=== PATIENT | female | born 1930 | race African-American/Black ===

== ENCOUNTER 2016-11-28 08:40 | Emergency (ER) | payer MEDICARE, BC ==
[~2016-11-28 08:40] MED LIST: ACET325S8 PO; ATEN1TAB74 PO; ATOR10 PO; DYAZ37.57 PO; HYDR-3533 PO; LISI-363 PO; RANI150T PO
[2016-11-28 08:51] VITALS: BP 164/85; PULSE 73; RESP 20; TEMP 98.1; O2SAT 93
--- NOTE | 2016-11-28 09:07 | PD ---
HPI Chief Complaint: Fall Time Seen by Provider: 08:48 Travel History International Travel<30 days: No Contact w/Intl Traveler<30days: No Traveled to known affect area: No History of Present Illness HPI The patient was seen and examined in the presence of the nurse. This patient complains of low back pain she developed when she fell this morning. She tripped trying to manage the recycle bins this morning. She landed on her buttock's. She complains of some low central back pain. She has been ambulatory since the fall. She uses a walker while inside the house but outside only uses a cane. Did not strike her head. He has no head or neck pain. Denies any neurologic complaint duration 2 hours. No alleviating factors. Severity is moderate. It's worse with movement PFSH Past Medical History Arthritis: Yes Autoimmune Disease: No Cardiovascular Problems: No High Cholesterol: Yes GERD: Yes Genitourinary: No Hypertension: Yes Musculoskeletal: Yes (OSTEOPOROSIS) Neurologic: No Reproductive: No Respiratory: No Menopausal: Yes Past Surgical History Ear Surgery: No Endocrine Surgery: No Eye Surgery: No Oral Surgery: No Social History Alcohol Use: Yes Tobacco Use: No (quit 50yrs ago) Substance Use: No Allergies-Medications (Allergen,Severity, Reaction): Coded Allergies: aspirin (Unverified Allergy, Unknown, 11/28/16) . nifedipine (Unverified Allergy, Unknown, 11/28/16) . Uncoded Allergies: MUSSELS (Allergy, Unknown, 01/24/16) . Reported Meds & Prescriptions Reported Meds & Active Scripts Active Active Prescriptions or Reported Medications Unobtainable Review of Systems General / Constitutional: No: Fever Eyes: No: Visual changes HENT: No: Headaches Cardiovascular: No: Chest Pain or Discomfort Respiratory: No: Shortness of Breath Gastrointestinal: No: Abdominal Pain Genitourinary: No: Dysuria Musculoskeletal: Positive: Pain Skin: No Rash Neurologic: No: Weakness Psychiatric: No: Depression Endocrine: No: Polydipsia Hematologic/Lymphatic: No: Easy Bruising Physical Exam Narrative GENERAL: Well-nourished, well-developed patient in no apparent distress. SKIN: Focused skin assessment reveals no rash and nodules. Skin is Warm and dry. HEAD: Atraumatic. Normocephalic. EYES: Pupils equal and round. No scleral icterus. No injection or drainage. ENT: No nasal bleeding or discharge. Mucous membranes pink and moist. NECK: Trachea midline. No JVD. No midline tenderness CARDIOVASCULAR: Regular rate and rhythm. No murmur appreciated. RESPIRATORY: No accessory muscle use. Clear to auscultation. Breath sounds equal bilaterally. GASTROINTESTINAL: Abdomen soft, non-tender, nondistended. Hepatic and splenic margins not palpable. MUSCULOSKELETAL: No obvious deformities. No clubbing. No cyanosis. Trace symmetric ankle edema. There is no midline tenderness of the back. No bruising or swelling. NEUROLOGICAL: Awake and alert. No obvious cranial nerve deficits. Motor grossly within normal limits. Normal speech. PSYCHIATRIC: Appropriate mood and affect; insight and judgment normal. Data Data Last Documented VS Vital Signs Date Time Temp Pulse Resp B/P Pulse Ox O2 Delivery O2 Flow Rate FiO2 11/28/16 08:51 98.1 73 20 164/85 93 Orders Pelvis, Ap Only (Routine) (11/28/16 ) Spine, Lumbar - Ltd (Ap & Lat) (11/28/16 ) Acetamin-Hydrocod 325-5 Mg ([place] 5-325 (11/28/16 10:15) MDM Medical Decision Making Medical Screen Exam Complete: Yes Emergency Medical Condition: Yes Medical Record Reviewed: Yes Differential Diagnosis Pelvic fracture, compression fracture of vertebrae, spinal CORD injury Narrative Course I have reviewed the patient's electronic medical record. Patient was last here 2015 for back pain Patient is neurologically intact I reviewed her pelvis x-ray which shows no fracture I reviewed her lumbar spine x-rays shows arthritic change and scoliosis and a stable mild to moderate T12 compression fracture No evidence of acute fracture Stable for outpatient follow-up I gave her a dose of pain medicine here and a dozen Lortab to use as needed Warned her about sedation and constipation. sHe's had them before without difficulty Diagnosis Primary Impression: Back contusion Qualified Code: S20.229A - Contusion of back, unspecified laterality, initial encounter Additional Impressions: Fall Qualified Code: W19.XXXA - Fall, initial encounter Arthritis Additional Instructions: The patient was advised to follow up with their physician and return if they worsen. The patient was warned about potential sedation for the medications they will receive on prescription. Med/Other Pt SpecificInfo: Prescription(s) given Scripts Hydrocodone-Acetaminophen (Lortab)5-325 Mg Tab1 Tab PO Q6H PRN (PAIN) #12 TAB Ref 0 Prov:Johnie Gagnon MD 11/28/16 Disposition: 01 DISCHARGE HOME Condition: Stable Johnie Gagnon MD Nov 28, 2016 09:07
--- NOTE | 2016-11-28 09:44 | RADRPT ---
EXAM DATE/TIME: 11/28/2016 09:12 [facility] COMPARISON: PELVIS AP ONLY, November 17, 2010, 14:27. INDICATIONS : Low back pain after fall this morning. MEDICAL HISTORY : Hypercholesterolemia. Gastroesophageal reflux disease. Osteoporosis. Hypertension. SURGICAL HISTORY : Left total hip replacement. ENCOUNTER: Initial ACUITY: 1 day PAIN SCORE: 10/10 LOCATION: pelvis FINDINGS: AP views of the pelvis were obtained and again demonstrate fat the patient is status post left hip ar throplasty. The femoral and acetabular components remain intact and in normal alignment. There is dif fuse osteopenia with no acute fracture or malalignment. There is mild degenerative change in the righ t hip. The sacrum is intact. There are vascular calcifications. There are degenerative disc changes a nd mild scoliosis in the lower lumbar spine. CONCLUSION: 1. Osteopenia with no acute fracture or malalignment. 2. Status post left hip arthroplasty. 3. Egenerative disc change is mild scoliosis in the lower lumbar spine. Ramin Atwood MD on November 28, 2016 at 9:40 Board Certified Radiologist. This report was verified electronically.
--- NOTE | 2016-11-28 09:50 | RADRPT ---
EXAM DATE/TIME: 11/28/2016 09:15 [facility] COMPARISON: CT THORACIC SPINE W/O CONTRAST, January 21, 2016, 16:47. INDICATIONS : Low back pain post fall this morning. MEDICAL HISTORY : Osteoporosis. Hypercholesterolemia. Gastroesophageal reflux disease. Hypertension. SURGICAL HISTORY : Left total hip replacement. ENCOUNTER: Initial ACUITY: 1 day PAIN SCORE: 10/10 LOCATION: Bilateral lumbar spine FINDINGS: AP and lateral views of the lumbar spine were obtained and demonstrate diffuse osteopenia with stable mild to moderate compression fracture deformity of the T12 vertebral body. There is no acute fractur e or malalignment. There are mild to moderate degenerative disc changes with disc space narrowing and hypertrophic change. There are degenerative joint changes involving the facets. Vascular calcificati ons are noted and there is a mild scoliosis. CONCLUSION: 1. No acute fracture or malalignment. 2. Stable mild to moderate compression fracture deformity of the T12 vertebral body. 3. Diffuse degenerative disc and degenerative joint changes. 4. Osteopenia and mild scoliosis. Ramin Atwood MD on November 28, 2016 at 9:43 Board Certified Radiologist. This report was verified electronically.
[2016-11-28] MEDS ORDERED: HYDR-3533 PO (10:08)
[2016-11-28] MEDS ORDERED: ACETAMINOPHEN/HYDROcodone 325 MG/5 MG TAB PO ONE (10:15)
== END 2016-11-28 11:00 | disposition home or self-care (01) ==
LOC: PHED 08:40
DX: S20.229A Contusion of unspecified back wall of thorax, initial encounter (principal); W01.0XXA Fall on same level from slipping, tripping and stumbling without subsequent striking against object, initial encounter; Y93.89 Activity, other specified
CPT/HCPCS: 72100; 72170; 99284

== ENCOUNTER 2017-12-12 10:14 | Inpatient (IN) ==
[2017-12-12] MEDS ORDERED: Morphine Inj 4 MG/ML Vial IV.PUSH ONE (10:34)
[2017-12-12] MEDS ORDERED: Sod Chloride 0.9% Inj 1,000 ML IV.SIG ONE (10:34)
--- NOTE | 2017-12-12 10:34 | ED ---
HPI General Chief Complaint: Weakness Stated Complaint: Weakness/Lower abd pain/pelvic pain x 2 days Source: patient Mode of arrival: ambulatory Limitations: no limitations History of Present Illness HPI narrative: Patient complains of lower abdominal pain for the past 2 days MD complaint: abdominal pain Onset (ago): day(s) (2) Pain Consistency: constant Location: LLQ, RLQ and suprapubic Severity: moderate Severity scale (1-10): 5 Quality: cramping and fullness Radiation: none Migration to: no migration Relieving factors: nothing Exacerbating factors: nothing Associated symptoms: denies other symptoms Related Data Home Medications Medication Instructions Recorded Confirmed atenolol 50 mg PO BID 12/12/17 12/12/17 atorvastatin 10 mg PO DAILY 12/12/17 12/12/17 ranitidine HCl 150 mg PO BID 12/12/17 12/12/17 triamterene-hydrochlorothiazid 1 cap PO DAILY 12/12/17 12/12/17 Previous Rx's Medication Instructions Recorded amoxicillin-pot clavulanate 1 tab PO Q12H #14 tab 12/15/17 [Augmentin] losartan [Cozaar] 25 mg PO DAILY #30 tab 12/15/17 Allergies Allergy/AdvReac Type Severity Reaction Status Date / Time aspirin Allergy Severe Chest Pain Verified 12/12/17 10:22 nifedipine Allergy Severe Chest Pain Verified 12/12/17 10:22 codeine AdvReac Severe Palpitation Verified 12/12/17 10:36 s MUSSELS Allergy Severe Chest Pain Uncoded 12/12/17 10:22 Review of Systems ROS: all other systems reviewed are negative PMFSH History History Provided By: Patient Medical History Medical History GERD (gastroesophageal reflux disease) (Acute) High cholesterol (Acute) Hypertension (Acute) Surgical History Surgical History History of hip replacement (Acute) Social History Social History Substance History: No History of Abuse Second Hand Smoke Exposure: No Smoking Status: Former smoker Tobacco Type: Cigarettes How Often Do You Have a Drink Containing Alcohol: 4 or more times a week [facility] within the Last 8 Weeks: No Recent Out of Country Travel within the Last 8 Weeks: No Exam Narrative Exam Narrative: GENERAL: Elderly -Sud[place] female in no apparent distress. SKIN: Warm and dry. HEAD: Atraumatic. Normocephalic. EYES: Pupils equal and round. No scleral icterus. No injection or drainage. ENT: No nasal bleeding or discharge. Mucous membranes pink and moist. NECK: Trachea midline. No JVD. CARDIOVASCULAR: Regular rate and rhythm. no rubs or gallops RESPIRATORY: No accessory muscle use. Clear to auscultation. Breath sounds equal bilaterally. GASTROINTESTINAL: Abdomen soft, non-tender, nondistended. No rebound or guarding MUSCULOSKELETAL: Extremities without clubbing, cyanosis, or edema. No obvious deformities. NEUROLOGICAL: Awake and alert. No obvious cranial nerve deficits. Motor grossly within normal limits. Five out of 5 muscle strength in the arms and legs. Normal speech. PSYCHIATRIC: Appropriate mood and affect; insight and judgment normal. Course Initial Documented Vital Signs Temperature 98.7 F 12/12/17 10:16 Pulse Rate 107 H 12/12/17 10:16 Respiratory Rate 18 12/12/17 10:16 Blood Pressure 99/51 L 12/12/17 10:16 Pulse Oximetry 97 12/12/17 10:16 Last Documented Vital Signs Temperature 97.4 F L 12/15/17 13:08 Pulse Rate 98 H 12/15/17 13:08 Respiratory Rate 18 12/15/17 13:08 Blood Pressure 186/81 H 12/15/17 13:08 Pulse Oximetry 95 12/15/17 13:08 Critical Care Time Critical Care Time: Yes Total Critical Care Time: 30 Attestation: Aggregate critical care time was 30 minutes. Time to perform other separately billable procedures was not included in the critical care time. My time did not include minutes spent treating any other patients simultaneously or on activities that did not directly contribute to the patient's treatment. The services I provided to this patient were to treat and/or prevent clinically significant deterioration I provided critical care services requiring my management, as noted below: Chart data review, documentation time, medication orders and management, vital sign assessments/reviewing monitor data, ordering and reviewing lab tests, ordering and interpreting/reviewing x-rays and diagnostic studies, care of the patient and discussion of the patient with the admitting physicians. Medical Decision Making MDM Narrative Medical decision making narrative: 21,000 white count with 83% neutrophilia, anemia of 10.8/32.9, normal platelet count Correlation profiles within normal limits Lactic acid 2.6, troponin elevated 0.09, mild hypokalemia 3.2, mild elevation of her creatinine at 1.4 with decrease G GFR 43... Anion gap elevation of 17, normal alk phos, normal LFTs. CT abdomen and pelvis read by radiologist shows cholelithiasis without cholecystitis, severe diverticulosis but without diverticulitis or abscess or perforation. There is however an ileus noted in the small bowel loops in the right lower quadrant suggesting enteritis. Conclusion from the evaluation of an interpretation of all of the above the patient has bacterial enteritis with early sepsis/SIRS, troponin elevation may be secondary to the creatinine in combination with age atherosclerotic disease and increased stressors. However it may also point out that there is atherosclerotic vascular disease not just in the cardiac region but mesenteric blood flow, howeer no major e/o bowel ischemia on ct.... Medical Screen Exam Complete: Yes Emergency Medical Condition: Yes Differential Diagnosis Differential Diagnosis: diverticulitis versus colitis versus appendicitis versus cystitis Medical Records Medical records reviewed: Yes I reviewed the patient's medical records. Lab Data Result diagrams: 12/14/17 09:40 12/13/17 06:33 Lab Results 12/12/17 12/12/17 12/12/17 Range/Units 10:50 10:50 10:50 CBC w Diff Slide review pending WBC 21.3 H (4.0-11.0) th/mm3 RBC 3.44 L (4.00-5.30) mil/mm3 Hgb 10.8 L (11.6-15.3) gm/dL Hct 32.9 L (35.0-46.0) % MCV 95.7 (80.0-100.0) fL MCH 31.3 (27.0-34.0) pg MCHC 32.7 (32.0-36.0) % RDW 14.4 (11.6-17.2) % Plt Count 382 (150-450) th/mm3 MPV 9.4 (7.0-11.0) fL Neut % (Auto) 82.7 H (16.0-70.0) % Lymph % (Auto) 6.9 L (9.0-44.0) % Summers % (Auto) 8.4 H (0.0-8.0) % Eos % (Auto) 0.0 (0.0-4.0) % Baso % (Auto) 2.0 (0.0-2.0) % Neut # (Auto) 17.6 H (1.8-7.7) th/mm3 Lymph # (Auto) 1.5 (1.0-4.8) th/mm3 Summers # (Auto) 1.8 H (0.0-0.9) th/mm3 Eos # (Auto) 0.0 (0.0-0.4) th/mm3 Baso # (Auto) 0.4 H (0.0-0.2) th/mm3 WBC Differential Manual diff final Seg Neuts % (Manual) 77 H (16-70) % Band Neuts % (Manual) 9 H (0-6) % Lymphocytes % (Manual) 6 L (9-44) % Monocytes % (Manual) 6 (0-8) % Metamyelocytes % (Man) 2 H (0-1) % Abs Neuts (Manual) 18.7 H (1.8-7.7) th/mm3 Nucleated RBCs/100 WBC 1 H (0-0) /100 WBC Differential Comment . Platelet Estimate Normal (Normal) Platelet Morphology Normal (Normal) PT 13.4 H (9.8-11.6) sec INR 1.3 Ratio APTT 28.5 (24.3-30.1) sec Sodium 138 (136-145) meq/L Potassium 3.2 L (3.5-5.1) meq/L Chloride 99 (98-107) meq/L Carbon Dioxide 21.6 (21.0-32.0) meq/L Anion Gap 17 H (5-15) meq/L BUN 26 H (7-18) mg/dL Creatinine 1.40 H (0.50-1.00) mg/dL Estimated GFR 43 L (>89) mL/min Random Glucose 73 L (74-106) mg/dL Lactic Acid (0.4-2.0) mmol/L Calcium 8.3 L (8.5-10.1) mg/dL Total Bilirubin 1.0 (0.2-1.0) mg/dL AST 15 (15-37) U/L ALT 11 (10-53) U/L Alkaline Phosphatase 73 (45-117) U/L Total Creatine Kinase 25 L (26-192) U/L Troponin I 0.09 H (0.02-0.05) ng/mL Total Protein 7.3 (6.4-8.2) g/dL Albumin 2.3 L (3.4-5.0) g/dL Lipase 52 L (73-393) U/L Ur Collection Type Urine Color (Yellw/Straw) Urine Clarity (Clear) Urine pH (5.0-8.5) Ur Specific Hendricks (1.002-1.035) Urine Protein (Neg-Trace) mg/dL Urine Glucose (UA) (Negative) mg/dL Urine Ketones (Negative) mg/dL Urine Occult Blood (Negative) Urine Nitrate (Negative) Urine Bilirubin (Negative) Urine Urobilinogen (Less than 2) mg/dL Ur Leukocyte Esterase (Negative) Urine RBC (0-3) /hpf Urine WBC (0-5) /hpf Urine WBC Clumps (None) Ur Squamous Epith Cells (0-5) /hpf Ur Transition Epith Cell (None) /hpf Amorphous Sediment (None) /hpf Urine Bacteria (None) /hpf Hyaline Casts (0-3) /lpf Micro UA Comment Ur Microscopic Review Urine Culture Comments Urine Collection Time hours Nasal Screen MRSA (PCR) (Negative) 12/12/17 12/12/17 12/12/17 Range/Units 10:50 13:10 15:00 CBC w Diff WBC (4.0-11.0) th/mm3 RBC (4.00-5.30) mil/mm3 Hgb (11.6-15.3) gm/dL Hct (35.0-46.0) % MCV (80.0-100.0) fL MCH (27.0-34.0) pg MCHC (32.0-36.0) % RDW (11.6-17.2) % Plt Count (150-450) th/mm3 MPV (7.0-11.0) fL Neut % (Auto) (16.0-70.0) % Lymph % (Auto) (9.0-44.0) % Summers % (Auto) (0.0-8.0) % Eos % (Auto) (0.0-4.0) % Baso % (Auto) (0.0-2.0) % Neut # (Auto) (1.8-7.7) th/mm3 Lymph # (Auto) (1.0-4.8) th/mm3 Summers # (Auto) (0.0-0.9) th/mm3 Eos # (Auto) (0.0-0.4) th/mm3 Baso # (Auto) (0.0-0.2) th/mm3 WBC Differential Seg Neuts % (Manual) (16-70) % Band Neuts % (Manual) (0-6) % Lymphocytes % (Manual) (9-44) % Monocytes % (Manual) (0-8) % Metamyelocytes % (Man) (0-1) % Abs Neuts (Manual) (1.8-7.7) th/mm3 Nucleated RBCs/100 WBC (0-0) /100 WBC Differential Comment Platelet Estimate (Normal) Platelet Morphology (Normal) PT (9.8-11.6) sec INR Ratio APTT (24.3-30.1) sec Sodium (136-145) meq/L Potassium (3.5-5.1) meq/L Chloride (98-107) meq/L Carbon Dioxide (21.0-32.0) meq/L Anion Gap (5-15) meq/L BUN (7-18) mg/dL Creatinine (0.50-1.00) mg/dL Estimated GFR (>89) mL/min Random Glucose (74-106) mg/dL Lactic Acid 2.6 H (0.4-2.0) mmol/L Calcium (8.5-10.1) mg/dL Total Bilirubin (0.2-1.0) mg/dL AST (15-37) U/L ALT (10-53) U/L Alkaline Phosphatase (45-117) U/L Total Creatine Kinase (26-192) U/L Troponin I (0.02-0.05) ng/mL Total Protein (6.4-8.2) g/dL Albumin (3.4-5.0) g/dL Lipase (73-393) U/L Ur Collection Type Clean catch Urine Color Yellow (Yellw/Straw) Urine Clarity Clear (Clear) Urine pH 6.0 (5.0-8.5) Ur Specific Hendricks 1.015 (1.002-1.035) Urine Protein Trace (Neg-Trace) mg/dL Urine Glucose (UA) Negative (Negative) mg/dL Urine Ketones 15 H (Negative) mg/dL Urine Occult Blood Negative (Negative) Urine Nitrate Negative (Negative) Urine Bilirubin Negative (Negative) Urine Urobilinogen 1.0 (Less than 2) mg/dL Ur Leukocyte Esterase Negative (Negative) Urine RBC 0-3 (0-3) /hpf Urine WBC 6-8 H (0-5) /hpf Urine WBC Clumps Few H (None) Ur Squamous Epith Cells 6-10 H (0-5) /hpf Ur Transition Epith Cell 1-5 H (None) /hpf Amorphous Sediment Moderate H (None) /hpf Urine Bacteria Few H (None) /hpf Hyaline Casts 0-3 (0-3) /lpf Micro UA Comment Culture indicated Ur Microscopic Review Microscopic reviewed Urine Culture Comments Culture indicated Urine Collection Time 1310 hours Nasal Screen MRSA (PCR) Mrsa detected (Negative) 12/13/17 12/13/17 12/14/17 Range/Units 06:33 06:33 09:40 CBC w Diff Slide review pending Auto diff final WBC 20.4 H 15.0 H (4.0-11.0) th/mm3 RBC 2.86 L 2.92 L (4.00-5.30) mil/mm3 Hgb 9.5 L 9.5 L (11.6-15.3) gm/dL Hct 27.4 L 28.1 L (35.0-46.0) % MCV 95.8 96.1 (80.0-100.0) fL MCH 33.3 32.5 (27.0-34.0) pg MCHC 34.8 33.8 (32.0-36.0) % RDW 13.9 14.7 (11.6-17.2) % Plt Count 336 404 (150-450) th/mm3 MPV 7.8 8.5 (7.0-11.0) fL Neut % (Auto) 86.6 H 88.1 H (16.0-70.0) % Lymph % (Auto) 3.6 L 5.4 L (9.0-44.0) % Summers % (Auto) 9.5 H 6.1 (0.0-8.0) % Eos % (Auto) 0.0 0.1 (0.0-4.0) % Baso % (Auto) 0.3 0.3 (0.0-2.0) % Neut # (Auto) 17.7 H 13.3 H (1.8-7.7) th/mm3 Lymph # (Auto) 0.7 L 0.8 L (1.0-4.8) th/mm3 Summers # (Auto) 1.9 H 0.9 (0.0-0.9) th/mm3 Eos # (Auto) 0.0 0.0 (0.0-0.4) th/mm3 Baso # (Auto) 0.1 0.0 (0.0-0.2) th/mm3 WBC Differential Manual diff final . Seg Neuts % (Manual) 68 (16-70) % Band Neuts % (Manual) 14 H (0-6) % Lymphocytes % (Manual) 8 L (9-44) % Monocytes % (Manual) 7 (0-8) % Metamyelocytes % (Man) 3 H (0-1) % Abs Neuts (Manual) 17.3 H (1.8-7.7) th/mm3 Nucleated RBCs/100 WBC (0-0) /100 WBC Differential Comment . . Platelet Estimate Normal (Normal) Platelet Morphology Normal (Normal) PT (9.8-11.6) sec INR Ratio APTT (24.3-30.1) sec Sodium 143 (136-145) meq/L Potassium 3.6 (3.5-5.1) meq/L Chloride 107 D (98-107) meq/L Carbon Dioxide 26.1 (21.0-32.0) meq/L Anion Gap 10 (5-15) meq/L BUN 25 H (7-18) mg/dL Creatinine 1.20 H (0.50-1.00) mg/dL Estimated GFR 51 L (>89) mL/min Random Glucose 107 H (74-106) mg/dL Lactic Acid (0.4-2.0) mmol/L Calcium 7.5 L D (8.5-10.1) mg/dL Total Bilirubin (0.2-1.0) mg/dL AST (15-37) U/L ALT (10-53) U/L Alkaline Phosphatase (45-117) U/L Total Creatine Kinase (26-192) U/L Troponin I (0.02-0.05) ng/mL Total Protein (6.4-8.2) g/dL Albumin (3.4-5.0) g/dL Lipase (73-393) U/L Ur Collection Type Urine Color (Yellw/Straw) Urine Clarity (Clear) Urine pH (5.0-8.5) Ur Specific Hendricks (1.002-1.035) Urine Protein (Neg-Trace) mg/dL Urine Glucose (UA) (Negative) mg/dL Urine Ketones (Negative) mg/dL Urine Occult Blood (Negative) Urine Nitrate (Negative) Urine Bilirubin (Negative) Urine Urobilinogen (Less than 2) mg/dL Ur Leukocyte Esterase (Negative) Urine RBC (0-3) /hpf Urine WBC (0-5) /hpf Urine WBC Clumps (None) Ur Squamous Epith Cells (0-5) /hpf Ur Transition Epith Cell (None) /hpf Amorphous Sediment (None) /hpf Urine Bacteria (None) /hpf Hyaline Casts (0-3) /lpf Micro UA Comment Ur Microscopic Review Urine Culture Comments Urine Collection Time hours Nasal Screen MRSA (PCR) (Negative) Imaging Data Radiologist's impression: Abdomen/Pelvis CT 12/12/17 10:34 CONCLUSION: 1. Probable ileus related to bowel wall thickening involving the small bowel loops in the right lower quadrant suggesting an enteritis. 2. Severe diverticulosis without diverticulitis. 3. Cholelithiasis. 4. Diffuse atherosclerosis. ECG Data EKG Prior to Arrival: No Attestation: I personally reviewed and interpreted this ECG as follows: Prior ECG tracings: not available for review Interpretation: Normal sinus rhythm, 85 bpm, normal intervals, left axis deviation, no evidence of any ST elevation MS pattern Discharge Plan Discharge Disposition Patient Disposition: 30 Still Patient Discharge Condition Condition: Stable Discharge Order Discharge Orders: Discharge Order (Routine); Ordered 12/15/17 Ordered By: Maria R Pollard Discharge Details Anticipated Discharge Date: 12/15/17 Diagnosis: Dehydration, Sepsis, Enteritis, Non-STEMI (non-ST elevated myocardial infarction) Physicians Team ED Provider: Alistair Marie Primary Care Provider: Elizabeth Hicks Attending Provider: Maria R Pollard Discharge Interventions Interventions: ED Discharge Assessment Last Done: 12/12/17 13:50 Status ED Status: Left Department Discharge Information Discharge Date/Time: 12/12/17 13:50
[2017-12-12 11:03] LABS: Baso # (Auto) 0.4 th/mm3 (0.0-0.2); Hematocrit 32.9 % (35.0-46.0); Hemoglobin 10.8 gm/dL (11.6-15.3); Lymph # (Auto) 1.5 th/mm3 (1.0-4.8); Lymph % (Auto) 6.9 % (9.0-44.0); Mean Corpuscular HGB Conc 32.7 % (32.0-36.0); Mean Corpuscular Hemoglobin 31.3 pg (27.0-34.0); Mean Corpuscular Volume 95.7 fL (80.0-100.0); Mean Platelet Volume 9.4 fL (7.0-11.0); Mono # (Auto) 1.8 th/mm3 (0.0-0.9); Mono % (Auto) 8.4 % (0.0-8.0); Neut # (Auto) 17.6 th/mm3 (1.8-7.7); Neut % (Auto) 82.7 % (16.0-70.0); Platelet Count 382 th/mm3 (150-450); Red Blood Count 3.44 mil/mm3 (4.00-5.30); Red Cell Distribution Width 14.4 % (11.6-17.2); White Blood Count 21.3 th/mm3 (4.0-11.0)
[2017-12-12 11:15] LABS: Chloride 99 meq/L (98-107); Potassium 3.2 meq/L (3.5-5.1); Sodium 138 meq/L (136-145)
[2017-12-12 11:18] LABS: Calcium 8.3 mg/dL (8.5-10.1)
[2017-12-12 11:19] LABS: Activated Partial Thrombo Time 28.5 sec (24.3-30.1); Albumin 2.3 g/dL (3.4-5.0); Anion Gap 17 meq/L (5-15); Blood Urea Nitrogen 26 mg/dL (7-18); Carbon Dioxide 21.6 meq/L (21.0-32.0); Glucose,Random 73 mg/dL (74-106); INR 1.3 Ratio; Lipase 52 U/L (73-393); Prothrombin Time 13.4 sec (9.8-11.6)
[2017-12-12 11:22] LABS: Alanine Aminotransferase 11 U/L (10-53); Aspartate Aminotransferase 15 U/L (15-37); Glomerular Filtration Rate 43 mL/min (>89)
[2017-12-12 11:23] LABS: Total Protein 7.3 g/dL (6.4-8.2)
[2017-12-12 11:25] LABS: Alkaline Phosphatase 73 U/L (45-117)
[2017-12-12 11:27] LABS: Troponin I 0.09 ng/mL (0.02-0.05)
--- NOTE | 2017-12-12 11:31 | CT ---
EXAM DATE: 12/12/2017 11:19 AM EDT AGE/SEX: 87 years / Female INDICATIONS: Bilateral lower quadrant pain. Pelvic pain. Nausea. General weakness. CLINICAL DATA: This is the patient's initial encounter. Patient reports that signs and symptoms have been present for 2 days and indicates a pain score of 7/10. MEDICAL/SURGICAL HISTORY: Gastroesophageal reflux disease. Hypertension. . Left hip replacemen t. RADIATION DOSE: 7.07 CTDI (mGy) COMPARISON: [facility], PELVIS AP ONLY, 11/28/2016. . TECHNIQUE: Multiple contiguous axial images were obtained through the abdomen. Images were obtained using multiple row detector helical technique. Using automated exposure control and adjustment of the mA and/or kV according to patient size, radiation dose was kept as low as reasonably achievable to o btain optimal diagnostic quality images. DICOM format image data is available electronically for rev iew and comparison. FINDINGS: There is a tiny right effusion basilar atelectasis noted. Diffuse atherosclerotic calcifications of t he aorta and iliac vessels are seen. Cholelithiasis is noted. Liver and pancreas are unremarkable. Th e spleen is small in size. No adenopathy. Left hip arthroplasty is present. Urinary bladder unremarka ble. Uterus unremarkable. There is severe diverticulosis of the sigmoid colon and descending colon wi thout evidence of diverticulitis. There are mildly distended loops of fluid-filled small bowel seen t hroughout the abdomen. The right lower quadrant there is abnormal circumferential wall thickening inv olving small bowel loops with mild mesenteric hyperemia and mesenteric haziness. This suggests an ent eritis. There are degenerative changes of the spine seen. CONCLUSION: 1. Probable ileus related to bowel wall thickening involving the small bowel loops in the right lowe r quadrant suggesting an enteritis. 2. Severe diverticulosis without diverticulitis. 3. Cholelithiasis. 4. Diffuse atherosclerosis. Electronically signed by: Nitish England MD 12/12/2017 11:30 AM EDT
[2017-12-12 11:33] LABS: Creatine Kinase 25 U/L (26-192)
[2017-12-12] MEDS ORDERED: Piperacil/Tazo 4.5 GM Premix 4.5 GM/100 ML BAG IV.SIG STA (11:43)
[2017-12-12] MEDS ORDERED: Bisacodyl 10 MG Supp RECTAL PRN (12:20)
[2017-12-12 12:42] LABS: Lymphocytes 6 % (9-44); Metamyelocytes 2 % (0-1); Monocytes 6 % (0-8); Tallied Nucleated RBC 1 (0-0)
[2017-12-12 12:43] LABS: Platelet Estimate Normal (Normal); Platelet Morphology Normal (Normal)
[2017-12-12 13:37] LABS: Clarity,Urine Clear (Clear); Color,Urine Yellow (Yellw/Straw); Glucose,Urine (UA) Negative (Negative); Leukocyte Esterase,Urine Negative (Negative); Nitrite,Urine Negative (Negative); Specific Gravity,Urine 1.015 (1.002-1.035)
[2017-12-12 13:55] LABS: Bilirubin,Urine Negative (Negative)
[2017-12-12 14:00] LABS: Collection Time,Urine 1310 hours
[2017-12-12 14:01] LABS: Amorphous Sediment,Urine Moderate /hpf; Bacteria,Urine Few /hpf; Hyaline Casts,Urine 0-3 /lpf (0-3); RBC,Urine 0-3 /hpf (0-3)
[2017-12-12] MEDS: Sod Chloride 0.9% Inj 1,000 ML IV.CONT SCH ×2 (14:25→23:20)
--- NOTE | 2017-12-12 15:07 | P.HP ---
History of Present Illness Service: Hospitalist Primary Care Physician: Elizabeth Hicks MD Chief Complaint: Abdominal pain. History of Present Illness: Ms. Johnson is a pleasant 87 year old female with a history of hypertension, hyperlipidemia who presented to the ED on 12/12/2017 due to abdominal pain. About a week prior to this admission, she started having epigastric pain which improved somewhat only to get worse again in the lower abdominal area. She had diarrhea but that resolved and in the last two days, she has not had any bowel movements. She denies any fever, chills. No melena or hematochezia. Her last colonoscopy was in 2012. On ED eval, she was found to have leukocytosis of 21K, CT abd/pelvis showed enteritis related bowel wall thickening as well as diverticulosis. Inpatient Certification: I certify that the inpatient services were ordered in accordance with Medicare regulations governing the order. This includes certification that hospital inpatient services are reasonable and necessary and in the case of services not specified as inpatient-only under 42 CFR 419.22(n), that they are appropriately provided as inpatient services in accordance to with the 2-midnight benchmark under 43 CFR 412.3(e) Estimated Total Length of Stay (Days): 3 Plans for Post Hospital Care: Home [facility] - History History Provided By: Patient - Medical History Medical History: Medical History (Last Updated 12/12/17 @ 10:37 by Marlene Garcia RN) GERD (gastroesophageal reflux disease) High cholesterol Hypertension - Surgical History Surgical History: Surgical History (Last Updated 12/12/17 @ 10:37 by Marlene Garcia RN) History of hip replacement - Tobacco History Second Hand Smoke Exposure: No Tobacco Use In Past 30 Days: No Smoking Status: Former smoker Tobacco Type: Cigarettes - Alcohol History How Often Do You Have a Drink Containing Alcohol: 4 or more times a week - Substance Use History Substance History: No History of Abuse - Travel History Recent Travel in the [place] Within the Last 8 Weeks: No Recent Travel Out of the Country Within the Last 8 Weeks: No - Immunization History Tetanus Immunization: >5 Years Hx Influenza Vaccine This Season: No Medications and Allergies Active Medications: Active Medications Acetaminophen (Tylenol) 650 mg PO Q4H PRN PRN Reason: Headache, fever, pain 1-5 Al Hydroxide/Mg Hydroxide (Milk Of Magnesia Liq) 30 ml PO Q12H PRN PRN Reason: Mild Constipation Bisacodyl (Dulcolax Supp) 10 mg RECTAL DAILY PRN PRN Reason: SEVERE CONSITIPATION Sodium Chloride (Ns Inj) 1,000 mls @ 100 mls/hr IV.CONT .Q10H JUANITA Last Admin: 12/12/17 14:25 Dose: 100 mls/hr Piperacillin/Tazobactam/Dextrose (Zosyn 2.25 Gm Premix) 50 mls @ 200 mls/hr IV.SIG Q6H JUANITA Lactulose (Lactulose Liq) 30 ml PO DAILY PRN PRN Reason: SEVERE CONSITIPATION Ondansetron HCl (Zofran Inj) 4 mg IV.PUSH Q6H PRN PRN Reason: NAUSEA OR VOMITING Sennosides (Senokot) 17.2 mg PO Q12H PRN PRN Reason: Moderate Constipation Sodium Chloride (Ns Flush) 2 ml IV.FLUSH PRN PRN PRN Reason: FLUSH AFTER USING IV ACCESS Allergies Allergy/AdvReac Type Severity Reaction Status Date / Time aspirin Allergy Severe Chest Pain Verified 12/12/17 10:22 nifedipine Allergy Severe Chest Pain Verified 12/12/17 10:22 codeine AdvReac Severe Palpitation Verified 12/12/17 10:36 s MUSSELS Allergy Severe Chest Pain Uncoded 12/12/17 10:22 Home Medications Medication Instructions Recorded Confirmed Type atenolol 50 mg PO BID 12/12/17 12/12/17 History atorvastatin 10 mg PO DAILY 12/12/17 12/12/17 History lisinopril 40 mg PO DAILY 12/12/17 12/12/17 History ranitidine HCl 150 mg PO BID 12/12/17 12/12/17 History triamterene-hydrochlorothiazid 1 cap PO DAILY 12/12/17 12/12/17 History Exam Vital signs: Vital Signs 12/12/17 10:16 12/12/17 11:50 Temperature 98.7 F Pulse Rate 107 H 74 Respiratory Rate 18 14 Blood Pressure 99/51 L 157/74 H Pulse Oximetry 97 95 Intake & Output 12/11/17 12/12/17 12/12/17 18:59 06:59 18:59 Intake Total 1200 / 1200 Balance 1200 / 1200 Weight 52.6 kg Intake: IV 1200 / 1200 Zosyn 4.5 GM Premix 4.5 gm In 100 / 100 100 ml @ 200 mls/hr IV.SIG STAT STA Rx#:[id number] NS Inj 1,000 ML @ Wide Open IV. 1000 / 1000 SIG BOLUS ONE Rx#:[id number] Flagyl 500 MG Inj 100 ML @ 100 100 / 100 mls/hr IV.SIG STAT STA Rx#: [id number] Other: Weight On Admission 52.6 kg Results - Labs CBC & Chem 7: 12/13/17 06:33 12/13/17 06:33 Labs: Laboratory Results - last 24 hr 12/12/17 12/12/17 12/12/17 10:50 10:50 10:50 CBC w Diff Slide review pending WBC 21.3 H RBC 3.44 L Hgb 10.8 L Hct 32.9 L MCV 95.7 MCH 31.3 MCHC 32.7 RDW 14.4 Plt Count 382 MPV 9.4 Neut % (Auto) 82.7 H Lymph % (Auto) 6.9 L [place] % (Auto) 8.4 H Eos % (Auto) 0.0 Baso % (Auto) 2.0 Neut # (Auto) 17.6 H Lymph # (Auto) 1.5 [place] # (Auto) 1.8 H Eos # (Auto) 0.0 Baso # (Auto) 0.4 H WBC Differential Manual diff final Seg Neuts % (Manual) 77 H Band Neuts % (Manual) 9 H Lymphocytes % (Manual) 6 L Monocytes % (Manual) 6 Metamyelocytes % (Man) 2 H Abs Neuts (Manual) 18.7 H Nucleated RBCs/100 WBC 1 H Differential Comment . Platelet Estimate Normal Platelet Morphology Normal PT 13.4 H INR 1.3 APTT 28.5 Sodium 138 Potassium 3.2 L Chloride 99 Carbon Dioxide 21.6 Anion Gap 17 H BUN 26 H Creatinine 1.40 H Estimated GFR 43 L Random Glucose 73 L Lactic Acid Calcium 8.3 L Total Bilirubin 1.0 AST 15 ALT 11 Alkaline Phosphatase 73 Total Creatine Kinase 25 L Troponin I 0.09 H Total Protein 7.3 Albumin 2.3 L Lipase 52 L Ur Collection Type Urine Color Urine Clarity Urine pH Ur Specific [place] Urine Protein Urine Glucose (UA) Urine Ketones Urine Occult Blood Urine Nitrate Urine Bilirubin Urine Urobilinogen Ur Leukocyte Esterase Urine RBC Urine WBC Urine WBC Clumps Ur Squamous Epith Cells Ur Transition Epith Cell Amorphous Sediment Urine Bacteria Hyaline Casts Micro UA Comment Ur Microscopic Review Urine Culture Comments Urine Collection Time 12/12/17 12/12/17 10:50 13:10 CBC w Diff WBC RBC Hgb Hct MCV MCH MCHC RDW Plt Count MPV Neut % (Auto) Lymph % (Auto) [place] % (Auto) Eos % (Auto) Baso % (Auto) Neut # (Auto) Lymph # (Auto) [place] # (Auto) Eos # (Auto) Baso # (Auto) WBC Differential Seg Neuts % (Manual) Band Neuts % (Manual) Lymphocytes % (Manual) Monocytes % (Manual) Metamyelocytes % (Man) Abs Neuts (Manual) Nucleated RBCs/100 WBC Differential Comment Platelet Estimate Platelet Morphology PT INR APTT Sodium Potassium Chloride Carbon Dioxide Anion Gap BUN Creatinine Estimated GFR Random Glucose Lactic Acid 2.6 H Calcium Total Bilirubin AST ALT Alkaline Phosphatase Total Creatine Kinase Troponin I Total Protein Albumin Lipase Ur Collection Type Clean catch Urine Color Yellow Urine Clarity Clear Urine pH 6.0 Ur Specific [place] 1.015 Urine Protein Trace Urine Glucose (UA) Negative Urine Ketones 15 H Urine Occult Blood Negative Urine Nitrate Negative Urine Bilirubin Negative Urine Urobilinogen 1.0 Ur Leukocyte Esterase Negative Urine RBC 0-3 Urine WBC 6-8 H Urine WBC Clumps Few H Ur Squamous Epith Cells 6-10 H Ur Transition Epith Cell 1-5 H Amorphous Sediment Moderate H Urine Bacteria Few H Hyaline Casts 0-3 Micro UA Comment Culture indicated Ur Microscopic Review Microscopic reviewed Urine Culture Comments Culture indicated Urine Collection Time 1310 - Imaging Impressions Abdomen/Pelvis CT 12/12/17 10:34 CONCLUSION: 1. Probable ileus related to bowel wall thickening involving the small bowel loops in the right lower quadrant suggesting an enteritis. 2. Severe diverticulosis without diverticulitis. 3. Cholelithiasis. 4. Diffuse atherosclerosis. Caprini VTE Risk Assessment Caprini VTE Risk Assessment: No/Low Risk (score <= 1) Caprini Risk Assessment Model: Point Value = 1 Point Value = 2 Point Value = 3 Point Value = 5 Age 41-60 Minor surgery BMI > 25 kg/m2 Swollen legs Varicose veins or History of unexplained or recurrent spontaneous Oral contraceptives or hormone replacement Sepsis (< 1 month) Serious lung disease, including pneumonia (< 1 month) Abnormal pulmonary function Acute myocardial infarction Congestive heart failure (< 1 month) History of inflammatory bowel disease Medical patient at bed rest Age 61-74 Arthroscopic surgery Major open surgery (> 45 min) Laparoscopic surgery (> 45 min) Malignancy Confined to bed (> 72 hours) Immobilizing plaster cast Central venous access Age >= 75 History of VTE Family history of VTE Factor V Leiden Prothrombin [id number] Lupus anticoagulant Anticardiolipin antibodies Elevated serum homocysteine Heparin-induced thrombocytopenia Other congenital or acquired thrombophilia Stroke (< 1 month) Elective arthroplasty Hip, pelvis, or leg fracture Acute spinal cord injury (< 1 month) Prophylaxis Regimen: Total Risk Factor Score Risk Level Prophylaxis Regimen 0-1 Low Early ambulation 2 Moderate Order ONE of the following: *Sequential Compression Device (SCD) *Heparin 5000 units SQ BID 3-4 Higher Order ONE of the following medications: *Heparin 5000 units SQ TID *Enoxaparin/Lovenox 40 mg SQ daily (WT < 150 kg, CrCl > 30 mL/min) *Enoxaparin/Lovenox 30 mg SQ daily (WT < 150 kg, CrCl > 10-29 mL/min) *Enoxaparin/Lovenox 30 mg SQ BID (WT < 150 kg, CrCl > 30 mL/min) AND/OR *Sequential Compression Device (SCD) 5 or more Highest Order ONE of the following medications: *Heparin 5000 units SQ TID (Preferred with Epidurals) *Enoxaparin/Lovenox 40 mg SQ daily (WT < 150 kg, CrCl > 30 mL/min) *Enoxaparin/Lovenox 30 mg SQ daily (WT < 150 kg, CrCl > 10-29 mL/min) *Enoxaparin/Lovenox 30 mg SQ BID (WT < 150 kg, CrCl > 30 mL/min) AND *Sequential Compression Device (SCD) Assessment and Plan - Plan Ms. Johnson is a pleasant 87 year old female with a history of hypertension and hyperlipidemia who presents to the ED due to abdominal pain. Her pain started about 7 days prior to this admission in the epigastric area which later moved to the lower abdomen. Probable intra-abdominal infection - Although CT abdomen does not show diverticulitis, it is still a possibility based on clinical picture and leukocytosis as well as Lactic acid 2.6. - Will start patient on Zosyn IV. Hypertension - Earlier today, patient was somewhat hypotensive. - Will hold off using any BP meds today. - Will start Losartan instead of Lisinopril. Pt is allergic to CCB Full code. SCDs
[2017-12-12] MEDS: Piperacil/Tazo 2.25 GM Premix 50 ML IV.SIG SCH ×2 (17:29→23:19)
[2017-12-12] MEDS: Famotidine 20 MG Tablet PO SCH (20:34)
[2017-12-12] MEDS ORDERED: Atenolol 50 MG Tablet PO SCH (21:00)
[2017-12-13] MEDS: Sod Chloride 0.9% Inj 1,000 ML IV.CONT SCH ×3 (00:56→21:07)
[2017-12-13] MEDS ORDERED: Chlorhexidine Gluconate 2% 1 Pack (2 Cloths) TOPICAL PRN (04:00)
[2017-12-13] MEDS: Piperacil/Tazo 2.25 GM Premix 50 ML IV.SIG SCH ×3 (05:17→18:08)
[2017-12-13] MEDS: Chlorhexidine Gluconate 2% 1 Pack (2 Cloths) TOPICAL SCH (05:17)
[2017-12-13 06:44] LABS: Baso # (Auto) 0.1 th/mm3 (0.0-0.2); Baso % (Auto) 0.3 % (0.0-2.0); Hematocrit 27.4 % (35.0-46.0); Hemoglobin 9.5 gm/dL (11.6-15.3); Lymph # (Auto) 0.7 th/mm3 (1.0-4.8); Lymph % (Auto) 3.6 % (9.0-44.0); Mean Corpuscular HGB Conc 34.8 % (32.0-36.0); Mean Corpuscular Hemoglobin 33.3 pg (27.0-34.0); Mean Corpuscular Volume 95.8 fL (80.0-100.0); Mean Platelet Volume 7.8 fL (7.0-11.0); Mono # (Auto) 1.9 th/mm3 (0.0-0.9); Mono % (Auto) 9.5 % (0.0-8.0); Neut # (Auto) 17.7 th/mm3 (1.8-7.7); Neut % (Auto) 86.6 % (16.0-70.0); Platelet Count 336 th/mm3 (150-450); Red Blood Count 2.86 mil/mm3 (4.00-5.30); Red Cell Distribution Width 13.9 % (11.6-17.2); White Blood Count 20.4 th/mm3 (4.0-11.0)
[2017-12-13 07:35] LABS: Carbon Dioxide 26.1 meq/L (21.0-32.0); Potassium 3.6 meq/L (3.5-5.1)
[2017-12-13 07:39] LABS: Calcium 7.5 mg/dL (8.5-10.1)
[2017-12-13 07:59] LABS: Lymphocytes 8 % (9-44); Metamyelocytes 3 % (0-1); Monocytes 7 % (0-8); Platelet Estimate Normal (Normal); Platelet Morphology Normal (Normal)
[2017-12-13] MEDS: Famotidine 20 MG Tablet PO SCH ×2 (09:31→21:08)
--- NOTE | 2017-12-13 16:37 | ECG ---
Date Performed: 12/12/2017 Time Performed: 10:50:23 PTAGE: 87 years EKG: Sinus rhythm BORDERLINE LEFT AXIS DEVIATION BORDERLINE ECG Compared to PREVIOUS TRACING , axis somewhat more leftward, otherwise no significant change. PREVIOUS TRACIN11/17/2010 11.07 DOCTOR: Frandy Wallace Interpretating Date/Time 12/13/2017 16:36:34
[2017-12-14] MEDS: Piperacil/Tazo 2.25 GM Premix 50 ML IV.SIG SCH ×5 (00:59→23:59)
[2017-12-14] MEDS: Chlorhexidine Gluconate 2% 1 Pack (2 Cloths) TOPICAL SCH (03:22)
[2017-12-14] MEDS: Sod Chloride 0.9% Inj 1,000 ML IV.CONT SCH ×3 (04:39→17:24)
--- NOTE | 2017-12-14 08:55 | P.PN ---
Subjective Interval history: Delayed entry for 12/13/2017. Patient is doing well. Tolerating liquid diet. No fever, chills. Abdominal pain is improving. Physical Exam Vital signs: Vital Signs 12/13/17 09:00 12/13/17 10:00 12/13/17 11:00 Temperature Pulse Rate 78 84 86 Respiratory Rate 15 19 20 Blood Pressure 144/72 H 107/57 L 133/66 Pulse Oximetry 12/13/17 12:00 12/13/17 13:00 12/13/17 14:00 Temperature 97.8 F Pulse Rate 86 76 82 Respiratory Rate 28 H 17 24 Blood Pressure 149/71 H 154/68 H 145/64 H Pulse Oximetry 12/13/17 20:00 12/14/17 00:00 12/14/17 04:00 Temperature 98 F 97 F L Pulse Rate 82 82 Respiratory Rate 20 20 16 Blood Pressure 138/63 130/60 Pulse Oximetry 95 95 12/14/17 07:41 Temperature 97 F L Pulse Rate 80 Respiratory Rate 20 Blood Pressure 134/60 Pulse Oximetry 93 L Intake & Output 12/13/17 12/14/17 12/14/17 18:59 06:59 18:59 Intake Total 1050 / 1050 2220 / 2220 Output Total 100 / 100 Balance 950 / 950 2220 / 2220 Weight 52.8 kg Intake: IV 1050 / 1050 2100 / 2100 NS Inj 1,000 ML @ 100 mls/hr IV 1000 / 1000 2000 / 2000 .CONT .Q10H JUANITA Rx#:[id number] Zosyn 2.25 GM Premix 50 ML @ 50 / 50 100 / 100 200 mls/hr IV.SIG Q6H JUANITA Rx#: [id number] Oral 120 / 120 Output: Urine 100 / 100 Other: Date of Last Bowel Movement 12/10/17 Narrative: GENERAL: Alert, NAD. SKIN: Warm and dry. HEAD: Normocephalic. EYES: No scleral icterus. No injection or drainage. NECK: Supple, trachea midline. No JVD or lymphadenopathy. CARDIOVASCULAR: Regular rate and rhythm without murmurs, gallops, or rubs. RESPIRATORY: Breath sounds equal bilaterally. No accessory muscle use. GASTROINTESTINAL: Abdomen soft, non-tender, nondistended. MUSCULOSKELETAL: No cyanosis, or edema. BACK: Nontender without obvious deformity. No CVA tenderness. Results - Labs CBC & Chem 7: 12/13/17 06:33 12/13/17 06:33 Microbiology 12/12/17 13:10 Clean Catch Urine Urine Culture - Final <10,000 cfu/mL mixed aye - no further workup Assessment and Plan - Plan Ms. Johnson is a pleasant 87 year old female with a history of hypertension and hyperlipidemia who presents to the ED due to abdominal pain. Her pain started about 7 days prior to this admission in the epigastric area which later moved to the lower abdomen. Probable intra-abdominal infection - Although CT abdomen does not show diverticulitis, it is still a possibility based on clinical picture and leukocytosis as well as Lactic acid 2.6. - Will Continue patient on Zosyn IV. Re-check CBC in the AM on 12/14/2017. Hypertension - Will continue ARB Full code. SCDs
[2017-12-14 09:53] LABS: Baso % (Auto) 0.3 % (0.0-2.0); Eos % (Auto) 0.1 % (0.0-4.0); Hematocrit 28.1 % (35.0-46.0); Hemoglobin 9.5 gm/dL (11.6-15.3); Lymph # (Auto) 0.8 th/mm3 (1.0-4.8); Lymph % (Auto) 5.4 % (9.0-44.0); Mean Corpuscular HGB Conc 33.8 % (32.0-36.0); Mean Corpuscular Hemoglobin 32.5 pg (27.0-34.0); Mean Corpuscular Volume 96.1 fL (80.0-100.0); Mean Platelet Volume 8.5 fL (7.0-11.0); Mono # (Auto) 0.9 th/mm3 (0.0-0.9); Mono % (Auto) 6.1 % (0.0-8.0); Neut # (Auto) 13.3 th/mm3 (1.8-7.7); Neut % (Auto) 88.1 % (16.0-70.0); Platelet Count 404 th/mm3 (150-450); Red Blood Count 2.92 mil/mm3 (4.00-5.30); Red Cell Distribution Width 14.7 % (11.6-17.2)
[2017-12-14] MEDS: Famotidine 20 MG Tablet PO SCH ×2 (10:37→21:25)
--- NOTE | 2017-12-14 16:44 | P.PN ---
Subjective Interval history: Follow up for enteritis, intraabdominal infection. Patient is doing well. No fever, chills. Tolerating diet well. Physical Exam Vital signs: Vital Signs 12/13/17 20:00 12/14/17 00:00 12/14/17 04:00 Temperature 98 F 97 F L Pulse Rate 82 82 Respiratory Rate 20 20 16 Blood Pressure 138/63 130/60 Pulse Oximetry 95 95 12/14/17 07:41 12/14/17 11:19 12/14/17 15:18 Temperature 97 F L 97.2 F L 96.8 F L Pulse Rate 80 76 81 Respiratory Rate 20 20 20 Blood Pressure 134/60 138/64 132/60 Pulse Oximetry 93 L 93 L 93 L Intake & Output 12/13/17 12/14/17 12/14/17 18:59 06:59 18:59 Intake Total 1050 / 1050 2220 / 2220 Output Total 100 / 100 Balance 950 / 950 2220 / 2220 Weight 52.8 kg Intake: IV 1050 / 1050 2100 / 2100 NS Inj 1,000 ML @ 100 mls/hr IV 1000 / 1000 2000 / 2000 .CONT .Q10H JUANITA Rx#:[id number] Zosyn 2.25 GM Premix 50 ML @ 50 / 50 100 / 100 200 mls/hr IV.SIG Q6H JUANITA Rx#: [id number] Oral 120 / 120 Output: Urine 100 / 100 Other: Date of Last Bowel Movement 12/10/17 Results - Labs CBC & Chem 7: 12/14/17 09:40 12/13/17 06:33 Laboratory Results - last 24 hr 12/14/17 09:40 CBC w Diff Auto diff final WBC 15.0 H RBC 2.92 L Hgb 9.5 L Hct 28.1 L MCV 96.1 MCH 32.5 MCHC 33.8 RDW 14.7 Plt Count 404 MPV 8.5 Neut % (Auto) 88.1 H Lymph % (Auto) 5.4 L [place] % (Auto) 6.1 Eos % (Auto) 0.1 Baso % (Auto) 0.3 Neut # (Auto) 13.3 H Lymph # (Auto) 0.8 L [place] # (Auto) 0.9 Eos # (Auto) 0.0 Baso # (Auto) 0.0 WBC Differential . Differential Comment . Assessment and Plan - Plan Ms. Johnson is a pleasant 87 year old female with a history of hypertension and hyperlipidemia who presents to the ED due to abdominal pain. Her pain started about 7 days prior to this admission in the epigastric area which later moved to the lower abdomen. Probable intra-abdominal infection - Although CT abdomen does not show diverticulitis, it is still a possibility based on clinical picture and leukocytosis as well as Lactic acid 2.6. - Will Continue patient on Zosyn IV. Leukocytosis is much improved. Hypertension - Will continue ARB Will get PT to eval patient. If indicated, patient may need SNF. Full code. SCDs
[2017-12-14] MEDS: Acetaminophen 325 MG Tablet PO PRN (17:37)
[2017-12-15] MEDS: Sod Chloride 0.9% Inj 1,000 ML IV.CONT SCH ×2 (00:13→11:04)
[2017-12-15 01:31] VITALS: O2SAT 95
[2017-12-15] MEDS ORDERED: Metoprolol Tartrate 25 MG Tablet PO ONE (02:14)
[2017-12-15] MEDS: Chlorhexidine Gluconate 2% 1 Pack (2 Cloths) TOPICAL SCH (03:08)
[2017-12-15] MEDS: Piperacil/Tazo 2.25 GM Premix 50 ML IV.SIG SCH ×2 (05:00→11:04)
[2017-12-15] MEDS: Famotidine 20 MG Tablet PO SCH (09:01)
[2017-12-15 10:09] VITALS: RESP 18
[2017-12-15] MEDS: Acetaminophen 325 MG Tablet PO PRN (13:06)
[2017-12-15 13:09] VITALS: BP 186/81; PULSE 98; TEMP 97.4
--- NOTE | 2017-12-15 13:11 | P.DCO ---
- Physical Therapy Order: Evaluate and treat, Improve ambulation, Strength and gait training - Home Health Nursing Order: Medical education, Signs/symptoms of disease process, Nursing assessment with vital signs - Certification I have seen patient Michelle Johnson on 12/15/17. My clinical findings support the need for the requested home health care services because: Limited mobility due to disease progression, Patient has SOB, Deconditioned with increased weakness, Limited ability to care for self, Need for psychosocial assistance, High risk of falls, Infection with risk of complications I certify that my clinical findings support that this patient is homebound because: Impaired cognitive ability/safety, Unsteady gait/balance, Unsafe to leave home unassisted, Need for psychosocial assistance, Unable to use public transportation
--- NOTE | 2018-01-08 11:19 | P.DS ---
Date of admission: 12/12/17 12:24 Primary care physician: Elizabeth Hicks MD Brief History from admission: Ms. Johnson is a pleasant 87 year old female with a history of hypertension, hyperlipidemia who presented to the ED on 12/12/2017 due to abdominal pain. About a week prior to this admission, she started having epigastric pain which improved somewhat only to get worse again in the lower abdominal area. She had diarrhea but that resolved and in the last two days, she has not had any bowel movements. She denies any fever, chills. No melena or hematochezia. Her last colonoscopy was in 2012. On ED eval, she was found to have leukocytosis of 21K, CT abd/pelvis showed enteritis related bowel wall thickening as well as diverticulosis. DS: Medications - Discharge Medications Prescriptions: amoxicillin-pot clavulanate [Augmentin] 1 tab PO Q12H #14 tab losartan [Cozaar] 25 mg PO DAILY #30 tab DS: Summary Hospital Course: Ms. Johnson is a pleasant 87 year old female with a history of hypertension and hyperlipidemia who presents to the ED due to abdominal pain. Her pain started about 7 days prior to this admission in the epigastric area which later moved to the lower abdomen. Probable intra-abdominal infection - Although CT abdomen does not show diverticulitis, it is still a possibility based on clinical picture and leukocytosis as well as Lactic acid 2.6. - Will Continue patient on Zosyn IV. Leukocytosis is much improved. - Patient clinically improved and was tolerating diet well. We discharged her home with Augmentin. Hypertension - Will continue ARB - Time Spent with Patient Total time spent providing and/or coordinating discharge services: Less than 30 minutes - Quality: VTE Deep Vein Thrombosis/Pulmonary Embolism Present on Admission: No Results Procedures completed during hospitalization: None. - Impressions ITS Impressions Abdomen/Pelvis CT 12/12/17 10:34 CONCLUSION: 1. Probable ileus related to bowel wall thickening involving the small bowel loops in the right lower quadrant suggesting an enteritis. 2. Severe diverticulosis without diverticulitis. 3. Cholelithiasis. 4. Diffuse atherosclerosis. Discharge Plan - Discharge Disposition Patient Disposition: /Home Health Service - Discharge Condition Condition: Stable - Discharge Order Discharge Orders: Discharge Order (Routine); Ordered 12/15/17 Ordered By: Maria R Pollard - Discharge Details Anticipated Discharge Date: 12/15/17 - Physicians Team Primary Care Provider: Elizabeth Hicks Attending Provider: Maria R Pollard
== END 2017-12-15 16:01 | disposition home health service (06) ==
LOC: PHED 10:14 → PHEDA 12:24 → PHICU 13:18 → PH3 12-13 15:03
PROVIDERS: ADMIT Hospitalist; ATTEND Hospitalist

== ENCOUNTER 2017-12-16 01:02 | Inpatient (IN) ==
[2017-12-16 01:52] LABS: Baso # (Auto) 0.1 th/mm3 (0.0-0.2); Baso % (Auto) 0.4 % (0.0-2.0); Eos % (Auto) 0.1 % (0.0-4.0); Hematocrit 27.3 % (35.0-46.0); Hemoglobin 8.8 gm/dL (11.6-15.3); Lymph # (Auto) 0.5 th/mm3 (1.0-4.8); Lymph % (Auto) 3.4 % (9.0-44.0); Mean Corpuscular HGB Conc 32.1 % (32.0-36.0); Mean Corpuscular Hemoglobin 31.8 pg (27.0-34.0); Mean Corpuscular Volume 98.9 fL (80.0-100.0); Mean Platelet Volume 8.3 fL (7.0-11.0); Mono # (Auto) 0.8 th/mm3 (0.0-0.9); Mono % (Auto) 5.5 % (0.0-8.0); Neut # (Auto) 12.9 th/mm3 (1.8-7.7); Neut % (Auto) 90.6 % (16.0-70.0); Platelet Count 374 th/mm3 (150-450); Red Blood Count 2.76 mil/mm3 (4.00-5.30); White Blood Count 14.2 th/mm3 (4.0-11.0)
--- NOTE | 2017-12-16 02:13 | ED ---
HPI General Chief complaint: Weakness Stated complaint: Medical Time Seen by Provider: 12/16/17 01:26 Source: patient Mode of arrival: EMS Limitations: no limitations History of Present Illness HPI narrative: 87yo F with PMH of HTN and HLD was brought in by [facility] for generalized weakness and diarrhea. Pt was just discharged this afternoon but son said pt is worst. Said she had massive diarrhea at midnight and worsening weakness. Denies any fever, chest pain, sob, n/v, focal weakness or numbness. Related Data Home Medications Medication Instructions Recorded Confirmed atenolol 50 mg PO BID 12/12/17 12/16/17 atorvastatin 10 mg PO DAILY 12/12/17 12/16/17 ranitidine HCl 150 mg PO BID 12/12/17 12/16/17 triamterene-hydrochlorothiazid 1 cap PO DAILY 12/12/17 12/16/17 Previous Rx's Medication Instructions Recorded amoxicillin-pot clavulanate 1 tab PO Q12H #14 tab 12/15/17 [Augmentin] losartan [Cozaar] 25 mg PO DAILY #30 tab 12/15/17 Allergies Allergy/AdvReac Type Severity Reaction Status Date / Time aspirin Allergy Severe Chest Pain Verified 12/16/17 01:27 nifedipine Allergy Severe Chest Pain Verified 12/16/17 01:27 codeine AdvReac Severe Palpitation Verified 12/16/17 01:27 s MUSSELS Allergy Severe Chest Pain Uncoded 12/16/17 01:27 Review of Systems ROS: all other systems reviewed are negative [facility] Family History Family History Other Family history non-contributory Social History Social History Substance History: No History of Abuse Second Hand Smoke Exposure: No Smoking Status: Never smoker Tobacco Type: Cigarettes How Often Do You Have a Drink Containing Alcohol: 4 or more times a week (son endorses 2-3 drinks of vodka mixes a day) Recent Travel in [facility] within the Last 8 Weeks: No Recent Out of Country Travel within the Last 8 Weeks: No Immunization History Tetanus Immunization: Unsure Exam Narrative Exam Narrative: GENERAL: 87yo F in mild distrss. SKIN: Focused skin assessment warm/dry. HEAD: Atraumatic. Normocephalic. EYES: Pupils equal and round. No scleral icterus. No injection or drainage. ENT: No nasal bleeding or discharge. Mucous membranes pink and moist. NECK: Trachea midline. No JVD. CARDIOVASCULAR: Regular rate and rhythm. No murmur appreciated. RESPIRATORY: No accessory muscle use. Clear to auscultation. Breath sounds equal bilaterally. GASTROINTESTINAL: Abdomen soft, non-tender, nondistended. MUSCULOSKELETAL: No obvious deformities. No clubbing. No cyanosis. No edema. NEUROLOGICAL: Awake and alert. No obvious cranial nerve deficits. Motor grossly within normal limits. Normal speech. PSYCHIATRIC: Appropriate mood and affect; insight and judgment normal. Course Initial Documented Vital Signs Temperature 98.7 F 12/16/17 01:22 Pulse Rate 99 H 12/16/17 01:22 Respiratory Rate 16 12/16/17 01:22 Blood Pressure 185/85 H 12/16/17 01:22 Pulse Oximetry 97 12/16/17 01:22 Last Documented Vital Signs Temperature 98.1 F 12/17/17 03:46 Pulse Rate 126 H 12/17/17 03:46 Respiratory Rate 16 12/17/17 03:46 Blood Pressure 147/89 H 12/17/17 03:46 Pulse Oximetry 97 12/17/17 03:46 Medical Decision Making [facility] Narrative Medical decision making narrative: 87yo F was brought back by her son because she is having worsening generalized weakness and diarrhea. Labs reviewed, WBC is trending down but there is toxic vacuolation present. She is tachycardic as well. Hypernatremic at 148. Magnesium is low at 1.4, replaced with 1gm of magnesium sulfate. Pt given NS IVF. Will admit pt for generalized weakness. Discussed with Dr. Dukes and accepted to her service. Medical Screen Exam Complete: Yes Emergency Medical Condition: Yes Differential Diagnosis Differential Diagnosis: Dehydration vs. sepsis vs. electrolyte abnormality Lab Data Result diagrams: 12/16/17 01:40 12/16/17 01:40 Lab Results 12/16/17 12/16/17 Range/Units 01:40 01:40 WBC 14.2 H (4.0-11.0) th/mm3 RBC 2.76 L (4.00-5.30) mil/mm3 Hgb 8.8 L (11.6-15.3) gm/dL Hct 27.3 L (35.0-46.0) % MCV 98.9 (80.0-100.0) fL MCH 31.8 (27.0-34.0) pg MCHC 32.1 (32.0-36.0) % RDW 15.0 (11.6-17.2) % Plt Count 374 (150-450) th/mm3 MPV 8.3 (7.0-11.0) fL Prelim Diff (Auto) Slide review pending Neut % (Auto) 90.6 H (16.0-70.0) % Lymph % (Auto) 3.4 L (9.0-44.0) % [place] % (Auto) 5.5 (0.0-8.0) % Eos % (Auto) 0.1 (0.0-4.0) % Baso % (Auto) 0.4 (0.0-2.0) % Neut # (Auto) 12.9 H (1.8-7.7) th/mm3 Lymph # (Auto) 0.5 L (1.0-4.8) th/mm3 [place] # (Auto) 0.8 (0.0-0.9) th/mm3 Eos # (Auto) 0.0 (0.0-0.4) th/mm3 Baso # (Auto) 0.1 (0.0-0.2) th/mm3 WBC Differential Manual diff final Seg Neuts % (Manual) 77 H (16-70) % Band Neuts % (Manual) 13 H (0-6) % Lymphocytes % (Manual) 2 L (9-44) % Monocytes % (Manual) 4 (0-8) % Metamyelocytes % (Man) 4 H (0-1) % Abs Neuts (Manual) 13.3 H (1.8-7.7) th/mm3 Differential Comment . Toxic Vacuolation Present H (None) Platelet Estimate Normal (Normal) Platelet Morphology Normal (Normal) Sodium 148 H (136-145) meq/L Potassium 3.6 (3.5-5.1) meq/L Chloride 114 H (98-107) meq/L Carbon Dioxide 20.5 L (21.0-32.0) meq/L Anion Gap 14 (5-15) meq/L BUN 11 (7-18) mg/dL Creatinine 0.85 (0.50-1.00) mg/dL Estimated GFR 76 L (>89) mL/min Random Glucose 81 (74-106) mg/dL Calcium 7.4 L* (8.5-10.1) mg/dL Prot Corrected Calcium 8.1 L (8.5-10.1) mg/dL Magnesium 1.4 L (1.5-2.5) mg/dL Total Bilirubin 0.5 (0.2-1.0) mg/dL AST 19 (15-37) U/L ALT 9 L (10-53) U/L Alkaline Phosphatase 52 (45-117) U/L Total Protein 5.8 L D (6.4-8.2) g/dL Albumin 1.8 L (3.4-5.0) g/dL ECG Data EKG Prior to Arrival: No Attestation: I personally reviewed and interpreted this ECG as follows: Interpretation: Sinus tachycardia at 113bpm. LAD. No ST segment elevation or depression. Discharge Plan Discharge Disposition Patient Disposition: 30 Still Patient Discharge Details Diagnosis: Sepsis, Hypomagnesemia Physicians Team ED Provider: Ema Loco Primary Care Provider: UNKNOWN, Attending Provider: Junaid Mcgarry Status ED Status: Left Department Discharge Information Discharge Date/Time: 12/16/17 05:55
[2017-12-16 02:19] LABS: Albumin 1.8 g/dL (3.4-5.0); Calcium 7.4 mg/dL (8.5-10.1); Carbon Dioxide 20.5 meq/L (21.0-32.0); Magnesium 1.4 mg/dL (1.5-2.5); Potassium 3.6 meq/L (3.5-5.1); Total Protein 5.8 g/dL (6.4-8.2)
[2017-12-16 02:21] LABS: Lymphocytes 2 % (9-44); Metamyelocytes 4 % (0-1); Monocytes 4 % (0-8)
[2017-12-16 02:25] LABS: Platelet Estimate Normal (Normal); Platelet Morphology Normal (Normal); Toxic Vacuolation Present
[2017-12-16] MEDS ORDERED: Mag Sulf 1 gm/100 ml Premix 100 ML IV.SIG ONE (04:30)
[2017-12-16] MEDS ORDERED: Sodium Chlor 0.9% Inj 500 ML IV.SIG SCH (05:00)
[2017-12-16] MEDS: Heparin - SQ 10,000 UNITS/ML Vial SQ SCH ×2 (05:28→18:49)
[2017-12-16] MEDS ORDERED: Heparin - SQ 10,000 UNITS/ML Vial SQ SCH (06:00)
--- NOTE | 2017-12-16 07:54 | ECG ---
Date Performed: 12/16/2017 Time Performed: 04:40:25 PTAGE: 87 years EKG: SINUS TACHYCARDIA WITH OCCASIONAL SUPRAVENTRICULAR PREMATURE COMPLEXES ABNORMAL RHYTHM ECG PREVIOUS TRACING : 12/12/2017 10.50 No significant change from previous tracing noted. DOCTOR: Yo Brown Interpretating Date/Time 12/16/2017 07:52:47
[2017-12-16] MEDS: Sod Chloride 0.9% Inj 1,000 ML IV.CONT SCH (12:42)
[2017-12-16] MEDS: Piperacil/Tazo 3.375 GM Premix 50 ML IV.SIG SCH ×2 (12:43→20:31)
--- NOTE | 2017-12-16 16:15 | P.HP ---
History of Present Illness Primary Care Physician: UNKNOWN Chief Complaint: abdominal pain, weakness, diarrhea History of Present Illness: This is a pleasant 87-year-old elderly black female with past medical history hypertension and hyperlipidemia. Patient was recently admitted from December 12 to December 14 with possible diverticulitis. Patient patient was tolerating diet well and she was discharge on oral antibiotics. According to the son, she was able to ambulate from the car to her home with some assistance. Later in the evening she had another episode of massive diarrhea and patient became very weak. She complains of her abdomen being distended and some tenderness to the left abdomen. There is no reported fever, no chills, no chest pain, shortness of breath. Patient indicates she has had poor appetite and has not been eating much but at this time wants to eat. Her son is at bedside providing most of the history. Patient was evaluated in the emergency room, laboratory workup was completed. CBC remarkable for WBC of 14.2, hemoglobin 8.8 and hematocrit of 27.3. BMP remarkable for sodium of 148, BUN 11, creatinine 0.85, protein corrected calcium of 8.1, magnesium 1.4. She was tachycardic. She was given IV fluids and magnesium was replaced. At this time, she wants something to eat. She has not had any further episodes of diarrhea since last night. Her son endorses that she is usually very active and lives by herself. Patient is admitted for further evaluation and treatment. - Diagnosis (1) Dehydration (2) Enteritis (3) Hypomagnesemia (4) Leukocytosis (5) Hypernatremia (6) Hypertension Review of Systems All other systems reviewed negative except as stated in HPI PMFSH - History History Provided By: Patient, Family Member, Navigating Officer / EMT - Medical History Medical History: Medical History (Last Reviewed 12/16/17 @ 16:15 by MINGO Anderson) GERD (gastroesophageal reflux disease) High cholesterol Hypertension - Surgical History Surgical History: Surgical History (Last Reviewed 12/16/17 @ 16:16 by MINGO Anderson) History of hip replacement - Family History Family History: Family History (Last Updated 12/16/17 @ 16:16 by MINGO Anderson) Other Family history non-contributory - Tobacco History Second Hand Smoke Exposure: No Smoking Status: Never smoker Tobacco Type: Cigarettes - Alcohol History How Often Do You Have a Drink Containing Alcohol: 4 or more times a week (son endorses 2-3 drinks of vodka mixes a day) - Substance Use History Substance History: No History of Abuse - Travel History Recent Travel in the [place] Within the Last 8 Weeks: No Recent Travel Out of the Country Within the Last 8 Weeks: No - Immunization History Tetanus Immunization: Unsure Medications and Allergies Active Medications: Active Medications Acetaminophen (Tylenol) 650 mg PO Q4H PRN PRN Reason: Temp > 100.4 Heparin Sodium (Porcine) (Heparin Inj) 5,000 units SQ Q12H [facility] Last Admin: 12/16/17 05:28 Dose: 5,000 units Sodium Chloride (Ns Inj) 500 mls @ 0 mls/hr IV.SIG BOLUS [facility] Last Infusion: 12/16/17 07:27 Dose: Infused Piperacillin/Tazobactam/Dextrose (Zosyn 3.375 Gm Premix) 50 mls @ 100 mls/hr IV.SIG Q8H [facility] Last Admin: 12/16/17 12:43 Dose: 100 mls/hr Sodium Chloride (Ns Inj) 1,000 mls @ 75 mls/hr IV.CONT .[id number] [facility] Last Admin: 12/16/17 12:42 Dose: 75 mls/hr Allergies Allergy/AdvReac Type Severity Reaction Status Date / Time aspirin Allergy Severe Chest Pain Verified 12/16/17 01:27 nifedipine Allergy Severe Chest Pain Verified 12/16/17 01:27 codeine AdvReac Severe Palpitation Verified 12/16/17 01:27 s MUSSELS Allergy Severe Chest Pain Uncoded 12/16/17 01:27 Home Medications Medication Instructions Recorded Confirmed Type atenolol 50 mg PO BID 12/12/17 12/16/17 History atorvastatin 10 mg PO DAILY 12/12/17 12/16/17 History ranitidine HCl 150 mg PO BID 12/12/17 12/16/17 History triamterene-hydrochlorothiazid 1 cap PO DAILY 12/12/17 12/16/17 History Exam Vital signs: Vital Signs 12/16/17 01:22 12/16/17 02:00 12/16/17 05:17 Temperature 98.7 F Pulse Rate 99 H 98 H Respiratory Rate 16 18 17 Blood Pressure 185/85 H 157/81 H 154/80 H Pulse Oximetry 97 99 12/16/17 08:00 09/04/18 12:00 Temperature 98.2 F 98.2 F Pulse Rate 102 H 101 H Respiratory Rate 16 16 Blood Pressure 196/92 H 181/88 H Pulse Oximetry 95 95 Intake & Output 12/15/17 12/16/17 12/16/17 18:59 06:59 18:59 Intake Total 600 / 600 Balance 600 / 600 Weight 58.06 kg Intake: IV 600 / 600 Magnesium Sulfate 1 gm/D5W 100 100 / 100 ml Premix 100 ML @ 100 mls/hr IV.SIG ONCE ONE Rx#:[id number] NS Inj 500 ML @ Wide Open IV. 500 / 500 SIG BOLUS [facility] Rx#:[id number] Narrative: GENERAL: 87-year-old elderly frail-appearing female. SKIN: Warm and dry. HEAD: Atraumatic. Normocephalic. EYES: Pupils equal and round. No scleral icterus. No injection or drainage. ENT: No nasal bleeding or discharge. Mucous membranes pink and moist. NECK: Trachea midline. No JVD. CARDIOVASCULAR: Regular rate and rhythm. RESPIRATORY: No accessory muscle use. Clear to auscultation. Breath sounds equal bilaterally. GASTROINTESTINAL: Abdomen slightly distended, tender to left lower quadrant, normoactive bowel sounds. Unable to detect any organomegaly. MUSCULOSKELETAL: Extremities without clubbing, cyanosis, or edema. No obvious deformities. NEUROLOGICAL: Awake and alert oriented 3. No obvious cranial nerve deficits. Motor grossly within normal limits. Five out of 5 muscle strength in the arms and legs. Normal speech. PSYCHIATRIC: Appropriate mood and affect; insight and judgment normal. Results - Labs CBC & Chem 7: 12/18/17 06:30 12/18/17 06:30 Labs: Laboratory Results - last 24 hr 12/16/17 12/16/17 01:40 01:40 WBC 14.2 H RBC 2.76 L Hgb 8.8 L Hct 27.3 L MCV 98.9 MCH 31.8 MCHC 32.1 RDW 15.0 Plt Count 374 MPV 8.3 Prelim Diff (Auto) Slide review pending Neut % (Auto) 90.6 H Lymph % (Auto) 3.4 L [place] % (Auto) 5.5 Eos % (Auto) 0.1 Baso % (Auto) 0.4 Neut # (Auto) 12.9 H Lymph # (Auto) 0.5 L [place] # (Auto) 0.8 Eos # (Auto) 0.0 Baso # (Auto) 0.1 WBC Differential Manual diff final Seg Neuts % (Manual) 77 H Band Neuts % (Manual) 13 H Lymphocytes % (Manual) 2 L Monocytes % (Manual) 4 Metamyelocytes % (Man) 4 H Abs Neuts (Manual) 13.3 H Differential Comment . Toxic Vacuolation Present H Platelet Estimate Normal Platelet Morphology Normal Sodium 148 H Potassium 3.6 Chloride 114 H Carbon Dioxide 20.5 L Anion Gap 14 BUN 11 Creatinine 0.85 Estimated GFR 76 L Random Glucose 81 Calcium 7.4 L* Prot Corrected Calcium 8.1 L Magnesium 1.4 L Total Bilirubin 0.5 AST 19 ALT 9 L Alkaline Phosphatase 52 Total Protein 5.8 L D Albumin 1.8 L Caprini VTE Risk Assessment Caprini VTE Risk Assessment: Moderate/High Risk (score >= 2) Caprini Risk Assessment Model: Point Value = 1 Point Value = 2 Point Value = 3 Point Value = 5 Age 41-60 Minor surgery BMI > 25 kg/m2 Swollen legs Varicose veins or History of unexplained or recurrent spontaneous Oral contraceptives or hormone replacement Sepsis (< 1 month) Serious lung disease, including pneumonia (< 1 month) Abnormal pulmonary function Acute myocardial infarction Congestive heart failure (< 1 month) History of inflammatory bowel disease Medical patient at bed rest Age 61-74 Arthroscopic surgery Major open surgery (> 45 min) Laparoscopic surgery (> 45 min) Malignancy Confined to bed (> 72 hours) Immobilizing plaster cast Central venous access Age >= 75 History of VTE Family history of VTE Factor V Leiden Prothrombin [id number] Lupus anticoagulant Anticardiolipin antibodies Elevated serum homocysteine Heparin-induced thrombocytopenia Other congenital or acquired thrombophilia Stroke (< 1 month) Elective arthroplasty Hip, pelvis, or leg fracture Acute spinal cord injury (< 1 month) Prophylaxis Regimen: Total Risk Factor Score Risk Level Prophylaxis Regimen 0-1 Low Early ambulation 2 Moderate Order ONE of the following: *Sequential Compression Device (SCD) *Heparin 5000 units SQ BID 3-4 Higher Order ONE of the following medications: *Heparin 5000 units SQ TID *Enoxaparin/Lovenox 40 mg SQ daily (WT < 150 kg, CrCl > 30 mL/min) *Enoxaparin/Lovenox 30 mg SQ daily (WT < 150 kg, CrCl > 10-29 mL/min) *Enoxaparin/Lovenox 30 mg SQ BID (WT < 150 kg, CrCl > 30 mL/min) AND/OR *Sequential Compression Device (SCD) 5 or more Highest Order ONE of the following medications: *Heparin 5000 units SQ TID (Preferred with Epidurals) *Enoxaparin/Lovenox 40 mg SQ daily (WT < 150 kg, CrCl > 30 mL/min) *Enoxaparin/Lovenox 30 mg SQ daily (WT < 150 kg, CrCl > 10-29 mL/min) *Enoxaparin/Lovenox 30 mg SQ BID (WT < 150 kg, CrCl > 30 mL/min) AND *Sequential Compression Device (SCD) Assessment and Plan - Assessment (1) Dehydration Code(s): E86.0 - Dehydration Status: Acute (2) Enteritis Code(s): K52.9 - Noninfective gastroenteritis and colitis, unspecified Status : Acute (3) Hypomagnesemia Code(s): E83.42 - Hypomagnesemia Status: Acute (4) Leukocytosis Code(s): D72.829 - Elevated white blood cell count, unspecified Status: Acute (5) Hypernatremia Code(s): E87.0 - Hyperosmolality and hypernatremia Status: Acute (6) Hypertension Code(s): I10 - Essential (primary) hypertension Status: Chronic - Plan 87 year old elderly female, recently admitted for poss diverticulitis vs. enteritis. Presented to ED with weakness and recurrent abd. pain with diarrhea. Found dehydrated, hypernatremic and hypocalcemic. Abdominal pain with poss diverticulitis vs enteritis, WBC trending down. Still with abd. pain, distension and diarrhea. Had previous Abd CT with no evidence of diverticulitis however highly suspicious based on clinical presentation and leukocytosis. Doubtful that pt. is septic, WBC trending down from recent admission. Leukocytosis and tachycardia likely due to dehydration. -Resume Zosyn 3.375 gm IV q 8 -will start cautious hydration, NS at 75/hr -replace electrolytes as needed -follow renal function -advance diet as tolerated -CBC in the morning -monitor for recurrent diarrhea. Weakness sec. to dehydration Advanced age, deconditioned secondary to recent admission -continue IVF and electrolyte replacement Consult physical therapy for evaluation Hypertension Resume home medications when medication reconciliation completed Daily alcohol use,pt's son endorses 2-3 drinks of vodka daily Has been drinking more, . Concerned that she may be depressed. -ETOH cessation counseling -monitor for withdrawal -Add Folic acid and Thiamine Heparin for DVT prophylaxis Plan of care discussed with RN, son, pt and CM. Pt. will need HHC with PT. 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 (6) Hypertension Qualifiers: Hypertension type: essential hypertension Qualified Code(s): I10 - Essential (primary) hypertension
[2017-12-17] MEDS: Sod Chloride 0.9% Inj 1,000 ML IV.CONT SCH (01:16)
[2017-12-17] MEDS: Piperacil/Tazo 3.375 GM Premix 50 ML IV.SIG SCH ×3 (04:29→20:44)
[2017-12-17] MEDS: Heparin - SQ 10,000 UNITS/ML Vial SQ SCH ×2 (04:29→17:29)
[2017-12-17] MEDS: Folic Acid 1 MG Tablet PO SCH (10:22)
[2017-12-17 11:57] LABS: Baso % (Auto) 0.3 % (0.0-2.0); Eos % (Auto) 0.3 % (0.0-4.0); Hematocrit 28.8 % (35.0-46.0); Hemoglobin 9.1 gm/dL (11.6-15.3); Lymph # (Auto) 0.7 th/mm3 (1.0-4.8); Lymph % (Auto) 6.1 % (9.0-44.0); Mean Corpuscular HGB Conc 31.5 % (32.0-36.0); Mean Corpuscular Hemoglobin 31.6 pg (27.0-34.0); Mean Corpuscular Volume 100.5 fL (80.0-100.0); Mono # (Auto) 0.6 th/mm3 (0.0-0.9); Mono % (Auto) 5.5 % (0.0-8.0); Neut # (Auto) 9.7 th/mm3 (1.8-7.7); Neut % (Auto) 87.8 % (16.0-70.0); Platelet Count 394 th/mm3 (150-450); Red Blood Count 2.86 mil/mm3 (4.00-5.30); Red Cell Distribution Width 15.4 % (11.6-17.2)
--- NOTE | 2017-12-17 12:05 | P.PN ---
Subjective Interval history: follow up for abd. pain, poss enteritis vs diverticulitis: Abdomen less distended, minimal pain, no nausea, no vomiting, poor appetite, 3 watery stools today, feels a little better today, more awake and alert, no fever, no chest pain, shortness of breath. Physical Exam Vital signs: Vital Signs 12/16/17 16:00 12/16/17 20:00 12/16/17 20:10 Temperature 98.4 F 98.2 F Pulse Rate 81 99 H 109 H Respiratory Rate 16 16 Blood Pressure 177/92 H 181/82 H Pulse Oximetry 97 93 L 12/17/17 00:00 12/17/17 03:46 12/17/17 07:25 Temperature 98.1 F 98.1 F Pulse Rate 104 H 126 H 100 H Respiratory Rate 16 16 Blood Pressure 186/90 H 147/89 H Pulse Oximetry 97 97 12/17/17 08:00 12/17/17 11:43 12/17/17 11:59 Temperature 98.0 F 97.5 F L Pulse Rate 105 H 93 H 93 H Respiratory Rate 12 20 Blood Pressure 141/70 H 156/72 H Pulse Oximetry 97 95 Intake & Output 12/16/17 12/17/17 12/17/17 18:59 06:59 18:59 Intake Total 1000 / 1000 1100 / 1100 Balance 1000 / 1000 1100 / 1100 Weight 58.06 kg Intake: IV 600 / 600 1100 / 1100 NS Inj 1,000 ML @ 75 mls/hr IV. 1000 / 1000 CONT .[id number] [facility] Rx#:[id number] Magnesium Sulfate 1 gm/D5W 100 100 / 100 ml Premix 100 ML @ 100 mls/hr IV.SIG ONCE ONE Rx#:[id number] Zosyn 3.375 GM Premix 50 ML @ 100 / 100 100 mls/hr IV.SIG Q8H [facility] Rx#: [id number] NS Inj 500 ML @ Wide Open IV. 500 / 500 SIG BOLUS [facility] Rx#:[id number] Oral 400 / 400 Other: Weight On Admission 58.06 kg Narrative: GENERAL: 87-year-old elderly frail-appearing female. SKIN: Warm and dry. HEAD: Atraumatic. Normocephalic. EYES: Pupils equal and round. No scleral icterus. No injection or drainage. ENT: No nasal bleeding or discharge. Mucous membranes pink and moist. NECK: Trachea midline. No JVD. CARDIOVASCULAR: Regular rate and rhythm. RESPIRATORY: No accessory muscle use. Clear to auscultation. Breath sounds equal bilaterally. GASTROINTESTINAL: Abdomen less distended, minimally tender to left lower quadrant, normoactive bowel sounds. Unable to detect any organomegaly. MUSCULOSKELETAL: Extremities without clubbing, cyanosis, or edema. No obvious deformities. NEUROLOGICAL: Awake and alert oriented 3. No obvious cranial nerve deficits. Motor grossly within normal limits. Five out of 5 muscle strength in the arms and legs. Normal speech. PSYCHIATRIC: Appropriate mood and affect; insight and judgment normal. Results - Labs CBC & Chem 7: 12/17/17 10:56 12/17/17 10:56 Laboratory Results - last 24 hr 12/17/17 12/17/17 04:40 10:56 WBC 11.0 RBC 2.86 L Hgb 9.1 L Hct 28.8 L MCV 100.5 H MCH 31.6 MCHC 31.5 L RDW 15.4 Plt Count 394 MPV 8.0 Prelim Diff (Auto) Slide review pending Neut % (Auto) 87.8 H Lymph % (Auto) 6.1 L [place] % (Auto) 5.5 Eos % (Auto) 0.3 Baso % (Auto) 0.3 Neut # (Auto) 9.7 H Lymph # (Auto) 0.7 L [place] # (Auto) 0.6 Eos # (Auto) 0.0 Baso # (Auto) 0.[address] C. diff Tox Epid 027 Negative C. difficile Tox (PCR) Negative Assessment and Plan - Assessment (1) Dehydration Code(s): E86.0 - Dehydration Status: Acute (2) Enteritis Code(s): K52.9 - Noninfective gastroenteritis and colitis, unspecified Status : Acute (3) Hypomagnesemia Code(s): E83.42 - Hypomagnesemia Status: Acute (4) Leukocytosis Code(s): D72.829 - Elevated white blood cell count, unspecified Status: Acute (5) Hypernatremia Code(s): E87.0 - Hyperosmolality and hypernatremia Status: Acute (6) Hypertension Code(s): I10 - Essential (primary) hypertension Status: Chronic - Plan 87 year old elderly female, recently admitted for poss diverticulitis vs. enteritis. Presented to ED with weakness and recurrent abd. pain with diarrhea. Found dehydrated, hypernatremic and hypocalcemic. Abdominal pain with poss diverticulitis vs enteritis, WBC trending down. Still with abd. pain, distension and diarrhea. Had previous Abd CT with no evidence of diverticulitis however highly suspicious based on clinical presentation and leukocytosis. Continue with diarrhea, abd. pain better -continue Zosyn 3.375 gm IV q 8 -replace electrolytes as needed -follow renal function -advance diet as tolerated -Cdiff negative -Add Imodium PRN -will check other stool studies. -remains hypernatremic, CO2 17.7-change IVF to D5W with 1 sodium bicarb 50 meq. -replace Mag and K -noted hypoglycemic, changed IVF. Amp D50 given per protocol. Repeat BGM in 2 hours. Anemia, likely dilutional -monitor CBC Weakness sec. to dehydration Advanced age, deconditioned secondary to recent admission Anorexia -continue IVF and electrolyte replacement PT eval, OOB daily -add Ensure, enc. PO intake Hypertension resume home meds Daily alcohol use,pt's son endorses 2-3 drinks of vodka daily Has been drinking more, . Concerned that she may be depressed. -ETOH cessation counseling -monitor for withdrawal, stable. -Continue PO Folic acid and Thiamine Heparin for DVT prophylaxis CM for dc planning, HHC with PT and nursing Labs pending today. Repeat labs in am Poss dc 1-2 days (6) Hypertension Qualifiers: Hypertension type: essential hypertension Qualified Code(s): I10 - Essential (primary) hypertension
[2017-12-17 12:31] LABS: Carbon Dioxide 17.7 meq/L (21.0-32.0); Magnesium 1.5 mg/dL (1.5-2.5); Potassium 3.2 meq/L (3.5-5.1)
[2017-12-17 13:27] LABS: Eosinophils 2 % (0-4); Lymphocytes 3 % (9-44); Metamyelocytes 1 % (0-1); Monocytes 1 % (0-8); Platelet Estimate Normal (Normal); Platelet Morphology Normal (Normal); Promyelocyte 2 % (0-0); Toxic Granulation 1+
[2017-12-17] MEDS: Loperamide 2 MG Capsule PO PRN ×2 (14:10→20:45)
[2017-12-17] MEDS ORDERED: Dextrose 50% in Water Syringe 50 ML ONE (14:15)
[2017-12-17] MEDS ORDERED: Potassium Chloride 25 MEQ Effervescent Tablet PO ONE (14:23)
[2017-12-17] MEDS ORDERED: Mag Sulf 1 gm/100 ml Premix 100 ML IV.SIG ONE (14:25)
[2017-12-17] MEDS ORDERED: Dextrose 5%/NaCl 0.45% Inj 1,000 ML IV.CONT SCH (14:30)
[2017-12-17] MEDS: SODIUM BICARBONATE IV.CONT SCH ×2 (15:34)
[2017-12-17] MEDS: WATER IV.CONT SCH ×2 (15:34)
[2017-12-17] MEDS: DEXTROSE 5% IV.CONT SCH ×2 (15:34)
[2017-12-17] MEDS: Famotidine 20 MG Tablet PO SCH (20:44)
[2017-12-17] MEDS: Atenolol 50 MG Tablet PO SCH (20:45)
[2017-12-18] MEDS: Heparin - SQ 10,000 UNITS/ML Vial SQ SCH ×2 (04:08→16:50)
[2017-12-18] MEDS: Piperacil/Tazo 3.375 GM Premix 50 ML IV.SIG SCH ×3 (04:09→20:53)
[2017-12-18 08:08] LABS: Hematocrit 29.3 % (35.0-46.0); Hemoglobin 9.6 gm/dL (11.6-15.3); Mean Corpuscular HGB Conc 32.7 % (32.0-36.0); Mean Corpuscular Hemoglobin 31.9 pg (27.0-34.0); Mean Corpuscular Volume 97.6 fL (80.0-100.0); Mean Platelet Volume 8.1 fL (7.0-11.0); Platelet Count 383 th/mm3 (150-450); Red Cell Distribution Width 15.5 % (11.6-17.2); White Blood Count 10.3 th/mm3 (4.0-11.0)
[2017-12-18 08:26] LABS: Calcium 8.4 mg/dL (8.5-10.1); Carbon Dioxide 22.3 meq/L (21.0-32.0); Potassium 3.3 meq/L (3.5-5.1)
[2017-12-18] MEDS: Folic Acid 1 MG Tablet PO SCH (09:57)
[2017-12-18] MEDS: Famotidine 20 MG Tablet PO SCH ×2 (09:57→20:54)
[2017-12-18] MEDS: Atenolol 50 MG Tablet PO SCH ×2 (09:58→20:54)
[2017-12-18] MEDS: Loperamide 2 MG Capsule PO PRN ×2 (09:58→21:30)
[2017-12-18] MEDS ORDERED: Potassium Chloride 25 MEQ Effervescent Tablet PO ONE (13:00)
--- NOTE | 2017-12-18 16:23 | P.PN ---
Subjective Interval history: follow up for abd. pain, poss enteritis vs diverticulitis: Abdomen less distended, minimal pain, one lg. diarrhea episode today, less watery. Eating poorly but drinking Ensure. More awake, and alert. No fever, no chest pain, shortness of breath. Son at d Physical Exam Vital signs: Vital Signs 12/17/17 19:53 12/17/17 23:45 12/18/17 04:00 Temperature 98.4 F 97.9 F 97.9 F Pulse Rate 115 H 93 H 92 H Respiratory Rate 18 17 18 Blood Pressure 179/88 H 148/73 H 158/76 H Pulse Oximetry 97 96 99 12/18/17 07:43 12/18/17 12:39 12/18/17 13:30 Temperature 98.0 F 98.3 F Pulse Rate 93 H 95 H 94 H Respiratory Rate 20 18 Blood Pressure 157/71 H 158/81 H Pulse Oximetry 98 93 L 12/18/17 15:38 Temperature 98.2 F Pulse Rate 112 H Respiratory Rate 20 Blood Pressure 147/86 H Pulse Oximetry 93 L Intake & Output 12/17/17 12/18/17 12/18/17 18:59 06:59 18:59 Intake Total 1200 / 1200 100 / 100 50 / 50 Balance 1200 / 1200 100 / 100 50 / 50 Intake: IV 1200 / 1200 100 / 100 50 / 50 D50W Syringe 50 ML @ 0 mls/hr . 50 / 50 ROUTE .STK-MED ONE Rx#:[id number] NS Inj 1,000 ML @ 50 mls/hr IV. 1000 / 1000 CONT .Q20H [facility] Rx#:[id number] Magnesium Sulfate 1 gm/D5W 100 100 / 100 ml Premix 100 ML @ 100 mls/hr IV.SIG ONCE ONE Rx#:[id number] Zosyn 3.375 GM Premix 50 ML @ 50 / 50 100 / 100 50 / 50 100 mls/hr IV.SIG Q8H [facility] Rx#: [id number] Other: # Voids 3 Date of Last Bowel Movement 12/17/17 12/17/17 12/18/17 # Bowel Movements 3 1 Narrative: GENERAL: 87-year-old elderly frail-appearing female. SKIN: Warm and dry. HEAD: Atraumatic. Normocephalic. EYES: Pupils equal and round. No scleral icterus. No injection or drainage. ENT: No nasal bleeding or discharge. Mucous membranes pink and moist. NECK: Trachea midline. No JVD. CARDIOVASCULAR: Regular rate and rhythm. RESPIRATORY: No accessory muscle use. Clear to auscultation. Breath sounds equal bilaterally. GASTROINTESTINAL: Abdomen less distended, minimally tender to left lower quadrant, normoactive bowel sounds. Unable to detect any organomegaly. MUSCULOSKELETAL: Extremities without clubbing, cyanosis, or edema. No obvious deformities. NEUROLOGICAL: Awake and alert oriented 3. No obvious cranial nerve deficits. Motor grossly within normal limits. Five out of 5 muscle strength in the arms and legs. Normal speech. PSYCHIATRIC: Appropriate mood and affect; insight and judgment normal. Results - Labs CBC & Chem 7: 12/18/17 06:30 12/18/17 06:30 Laboratory Results - last 24 hr 12/17/17 12/17/17 12/18/17 04:40 16:42 04:15 WBC RBC Hgb Hct MCV MCH MCHC RDW Plt Count MPV Sodium Potassium Chloride Carbon Dioxide Anion Gap BUN Creatinine Estimated GFR POC Glucose 136 H 93 Random Glucose Calcium Eosinophil Stool Smear None seen 12/18/17 12/18/17 06:30 06:30 WBC 10.3 RBC 3.00 L Hgb 9.6 L Hct 29.3 L MCV 97.6 MCH 31.9 MCHC 32.7 RDW 15.5 Plt Count 383 MPV 8.1 Sodium 148 H Potassium 3.3 L Chloride 114 H Carbon Dioxide 22.3 Anion Gap 12 BUN 7 Creatinine 0.83 Estimated GFR 78 L POC Glucose Random Glucose 83 Calcium 8.4 L Eosinophil Stool Smear Microbiology 12/17/17 04:04 Stool Stool for WBCs - Final Assessment and Plan - Assessment (1) Dehydration Code(s): E86.0 - Dehydration Status: Acute (2) Enteritis Code(s): K52.9 - Noninfective gastroenteritis and colitis, unspecified Status : Acute (3) Hypomagnesemia Code(s): E83.42 - Hypomagnesemia Status: Acute (4) Leukocytosis Code(s): D72.829 - Elevated white blood cell count, unspecified Status: Acute (5) Hypernatremia Code(s): E87.0 - Hyperosmolality and hypernatremia Status: Acute (6) Hypertension Code(s): I10 - Essential (primary) hypertension Status: Chronic - Plan 87 year old elderly female, recently admitted for poss diverticulitis vs. enteritis. Presented to ED with weakness and recurrent abd. pain with diarrhea. Found dehydrated, hypernatremic and hypocalcemic. Abdominal pain with poss diverticulitis vs enteritis, WBC trending down. Still with abd. pain, distension and diarrhea. Had previous Abd CT with no evidence of diverticulitis however highly suspicious based on clinical presentation and leukocytosis. Doubtful sepsis, WBC trending down from recent admission, tachycardia likely due to dehydratin Diarrhea improving, abd. pain better. -continue Zosyn 3.375 gm IV q 8 -replace electrolytes as needed -follow renal function -advance diet as tolerated -Cdiff negative -Imodium PRN -Stool studies noted, no WBCs, no eosinophils. Entamoeba pending -remains hypernatremic, less acidotic. No hypoglycemic episodes. Continue with D5W with 1 sodium bicarb 50 meq. -replace K (had run of nonsustained VT yesterday) Anemia, likely dilutional -monitor CBC Weakness sec. to dehydration Advanced age, deconditioned secondary to recent admission Anorexia Improving -continue IVF and electrolyte replacement PT eval, OOB daily -Ensure, enc. PO intake Hypertension resume home meds Daily alcohol use,pt's son endorses 2-3 drinks of vodka daily Has been drinking more, . Concerned that she may be depressed. No withdrawal symptoms noted -ETOH cessation counseling -monitor for withdrawal, stable. -Continue PO Folic acid and Thiamine Heparin for DVT prophylaxis CM for dc planning, HHC with PT and nursing Repeat labs in am Poss dc tomorrow if labs better and diarrhea improved. d/w pt, son, rn, cm (6) Hypertension Qualifiers: Hypertension type: essential hypertension Qualified Code(s): I10 - Essential (primary) hypertension
[2017-12-18] MEDS: SODIUM BICARBONATE IV.CONT SCH ×2 (16:50)
[2017-12-18] MEDS: DEXTROSE 5% IV.CONT SCH ×2 (16:50)
[2017-12-18] MEDS: WATER IV.CONT SCH ×2 (16:50)
[2017-12-19] MEDS: Piperacil/Tazo 3.375 GM Premix 50 ML IV.SIG SCH (03:59)
[2017-12-19] MEDS: Heparin - SQ 10,000 UNITS/ML Vial SQ SCH ×2 (04:02→19:09)
[2017-12-19 05:33] LABS: Hematocrit 27.7 % (35.0-46.0); Hemoglobin 9.3 gm/dL (11.6-15.3); Mean Corpuscular HGB Conc 33.5 % (32.0-36.0); Mean Corpuscular Hemoglobin 32.1 pg (27.0-34.0); Mean Platelet Volume 8.2 fL (7.0-11.0); Platelet Count 359 th/mm3 (150-450); Red Blood Count 2.89 mil/mm3 (4.00-5.30); Red Cell Distribution Width 15.5 % (11.6-17.2); White Blood Count 9.2 th/mm3 (4.0-11.0)
[2017-12-19 05:56] LABS: Calcium 8.2 mg/dL (8.5-10.1); Carbon Dioxide 23.6 meq/L (21.0-32.0); Potassium 3.1 meq/L (3.5-5.1)
--- NOTE | 2017-12-19 09:13 | P.PN ---
Subjective Interval history: Follow-up visit for abdominal pain, possible enteritis versus diverticulitis. Patient is seen and examined sitting up in bed eating breakfast this morning, appears to be in no acute distress. Patient denies any episodes of diarrhea overnight however states that she feels as if she may have had a BM this morning. She denies any SOB, cough, nausea, vomiting, headache, dizziness, or chest pain. Physical Exam Vital signs: Vital Signs 12/18/17 12:39 12/18/17 13:30 12/18/17 15:38 Temperature 98.3 F 98.2 F Pulse Rate 95 H 94 H 112 H Respiratory Rate 18 20 Blood Pressure 158/81 H 147/86 H Pulse Oximetry 93 L 93 L 12/18/17 22:55 12/18/17 23:23 12/19/17 01:38 Temperature 98.1 F Pulse Rate 85 85 84 Respiratory Rate 17 Blood Pressure 162/68 H Pulse Oximetry 93 L 12/19/17 04:39 12/19/17 08:00 Temperature 98.2 F 98.1 F Pulse Rate 80 82 Respiratory Rate 18 17 Blood Pressure 120/76 132/76 Pulse Oximetry 95 95 Intake & Output 12/18/17 12/19/17 12/19/17 18:59 06:59 18:59 Intake Total 1100 / 1100 580 / 580 Balance 1100 / 1100 580 / 580 Weight 60 kg Intake: IV 1100 / 1100 100 / 100 Sodium Bicarbonate 8.4% Inj 50 1050 / 1050 MEQ In D5W Inj 1,000 ML @ 42 mls/hr IV.CONT .Q24H [facility] Rx#: [id number] Zosyn 3.375 GM Premix 50 ML @ 50 / 50 100 / 100 100 mls/hr IV.SIG Q8H [facility] Rx#: [id number] Oral 480 / 480 Other: # Voids 1 3 Date of Last Bowel Movement 12/18/17 12/18/17 # Bowel Movements 1 3 Narrative: GENERAL: 87-year-old elderly frail-appearing female. SKIN: Warm and dry. HEAD: Atraumatic. Normocephalic. EYES: Pupils equal and round. No scleral icterus. No injection or drainage. ENT: No nasal bleeding or discharge. Mucous membranes pink and moist. NECK: Trachea midline. No JVD. CARDIOVASCULAR: Regular rate and rhythm. RESPIRATORY: No accessory muscle use. Clear to auscultation. Breath sounds equal bilaterally. GASTROINTESTINAL: Mild abdominal distention, diffused abd tenderness, normoactive bowel sounds. MUSCULOSKELETAL: Extremities without clubbing, cyanosis, or edema. No obvious deformities. NEUROLOGICAL: Awake and alert oriented 3. No obvious cranial nerve deficits. Motor grossly within normal limits. Five out of 5 muscle strength in the arms and legs. Normal speech. PSYCHIATRIC: Appropriate mood and affect; insight and judgment normal. Results - Labs CBC & Chem 7: 12/19/17 03:56 12/19/17 03:56 Laboratory Results - last 24 hr 12/19/17 12/19/17 03:56 03:56 WBC 9.2 RBC 2.89 L Hgb 9.3 L Hct 27.7 L MCV 96.0 MCH 32.1 MCHC 33.5 RDW 15.5 Plt Count 359 MPV 8.2 Sodium 144 Potassium 3.1 L Chloride 113 H Carbon Dioxide 23.6 Anion Gap 7 BUN 7 Creatinine 0.81 Estimated GFR 81 L Random Glucose 88 Calcium 8.2 L Microbiology 12/17/17 04:04 Stool Stool for WBCs - Final Assessment and Plan - Assessment (1) Dehydration Code(s): E86.0 - Dehydration Status: Acute (2) Enteritis Code(s): K52.9 - Noninfective gastroenteritis and colitis, unspecified Status : Acute (3) Hypomagnesemia Code(s): E83.42 - Hypomagnesemia Status: Acute (4) Leukocytosis Code(s): D72.829 - Elevated white blood cell count, unspecified Status: Acute (5) Hypernatremia Code(s): E87.0 - Hyperosmolality and hypernatremia Status: Acute (6) Hypertension Code(s): I10 - Essential (primary) hypertension Status: Chronic - Plan 87 year old elderly female, recently admitted for poss diverticulitis vs. enteritis. Presented to ED with weakness and recurrent abd. pain with diarrhea. Found dehydrated, hypernatremic and hypocalcemic. Abdominal pain with poss diverticulitis vs enteritis, WBC trending down. Still with abd. pain, distension and diarrhea. Had previous Abd CT with no evidence of diverticulitis however highly suspicious based on clinical presentation and leukocytosis. Doubtful sepsis, WBC trending down from recent admission, tachycardia likely due to dehydratin Diarrhea improving, abd. pain better. -D/C Zosyn 3.375 gm IV q 8, transition to p.o. -replace electrolytes as needed -follow renal function -advance diet as tolerated -Cdiff negative -Imodium PRN, add Questran -Stool studies noted, no WBCs, no eosinophils. Entamoeba pending -remains hypernatremic, less acidotic. No hypoglycemic episodes. Continue with D5W with 1 sodium bicarb 50 meq. -replace K (had run of nonsustained VT yesterday), will also check mag level. Will have p.o replacement and recheck K later this afternoon. Anemia, likely dilutional -monitor CBC Weakness sec. to dehydration Advanced age, deconditioned secondary to recent admission Anorexia Improving -acidosis improved, eating and drinking fine, D/C IVF PT eval, OOB daily -Ensure, enc. PO intake Hypertension resume home meds Daily alcohol use,pt's son endorses 2-3 drinks of vodka daily Has been drinking more, . Concerned that she may be depressed. No withdrawal symptoms noted -ETOH cessation counseling -monitor for withdrawal, stable. -Continue PO Folic acid and Thiamine Heparin for DVT prophylaxis Discussed Condition With: Patient and test lead application testing Planning: DC plans for HHC with PT and nursing Ongoing diarrhea with low K, if improved tomorrow DC. Initially son was agreeable for patient to be discharged home however later today son mentions considering rehab. Discussed with nurse to please make case management aware to begin this process in case patient decides to go to rehab. (6) Hypertension Qualifiers: Hypertension type: essential hypertension Qualified Code(s): I10 - Essential (primary) hypertension
[2017-12-19] MEDS: Folic Acid 1 MG Tablet PO SCH (09:44)
[2017-12-19] MEDS: Famotidine 20 MG Tablet PO SCH ×2 (09:44→20:42)
[2017-12-19] MEDS: Atenolol 50 MG Tablet PO SCH ×2 (09:44→20:42)
[2017-12-19] MEDS: metroNIDAZOLE 500 MG Tablet PO SCH ×2 (15:12→22:01)
[2017-12-19 17:46] LABS: Magnesium 1.3 mg/dL (1.5-2.5); Potassium 3.6 meq/L (3.5-5.1)
[2017-12-19] MEDS ORDERED: Mag Sulf 1 gm/100 ml Premix 100 ML IV.SIG ONE (18:53)
[2017-12-19] MEDS: Loperamide 2 MG Capsule PO PRN (19:05)
[2017-12-19] MEDS: Ciprofloxacin 500 MG Tablet PO SCH (20:42)
[2017-12-20] MEDS: Loperamide 2 MG Capsule PO PRN (05:52)
[2017-12-20] MEDS: metroNIDAZOLE 500 MG Tablet PO SCH ×3 (05:52→22:07)
[2017-12-20] MEDS: Heparin - SQ 10,000 UNITS/ML Vial SQ SCH ×2 (05:54→17:33)
[2017-12-20 07:46] LABS: Calcium 8.4 mg/dL (8.5-10.1); Carbon Dioxide 23.7 meq/L (21.0-32.0); Magnesium 1.6 mg/dL (1.5-2.5); Potassium 3.6 meq/L (3.5-5.1)
[2017-12-20] MEDS: Famotidine 20 MG Tablet PO SCH (08:45)
[2017-12-20] MEDS: Lactobacillus Acidophilus/L. Spores Tablet PO SCH ×3 (08:45→17:32)
[2017-12-20] MEDS: Ciprofloxacin 500 MG Tablet PO SCH ×2 (08:45→22:05)
[2017-12-20] MEDS: Atenolol 50 MG Tablet PO SCH ×2 (08:45→22:07)
[2017-12-20] MEDS: Folic Acid 1 MG Tablet PO SCH (08:46)
--- NOTE | 2017-12-20 09:55 | P.PNIM ---
Subjective Interval history: 7 bowel movements recorded overnight. Patient reports no appetite today. She denies any abdominal pain currently. Physical Exam Vital signs: Vital Signs 12/19/17 12:00 12/19/17 16:00 12/19/17 20:33 Temperature 98.0 F 98.5 F 97.6 F Pulse Rate 95 H 98 H 88 Respiratory Rate 17 17 18 Blood Pressure 127/68 174/82 H 152/76 H Pulse Oximetry 99 99 95 12/20/17 00:09 12/20/17 04:37 12/20/17 08:00 Temperature 97.9 F 97.7 F 97.7 F Pulse Rate 86 92 H 88 Respiratory Rate 18 18 18 Blood Pressure 150/71 H 132/72 161/76 H Pulse Oximetry 96 94 L 97 Intake & Output 12/19/17 12/20/17 12/20/17 18:59 06:59 18:59 Intake Total 465 / 465 580 / 580 Balance 465 / 465 580 / 580 Weight 132 lb 4.438 oz Intake: IV 125 / 125 100 / 100 Sodium Bicarbonate 8.4% Inj 50 125 / 125 MEQ In D5W Inj 1,000 ML @ 42 mls/hr IV.CONT .Q24H [facility] Rx#: [id number] Magnesium Sulfate 1 gm/D5W 100 100 / 100 ml Premix 100 ML @ 100 mls/hr IV.SIG ONCE ONE Rx#:[id number] Oral 340 / 340 480 / 480 Other: # Voids 4 7 # Bowel Movements 6 7 Narrative: GENERAL: Well-developed well-nourished. In no acute distress. SKIN: Warm and dry. No lesions noted. CARDIOVASCULAR: Regular rate and rhythm. No murmur appreciated. RESPIRATORY: No accessory muscle use. Clear to auscultation. Breath sounds equal bilaterally. GASTROINTESTINAL: Abdomen soft, non-tender, nondistended. Bowel sounds x4. MUSCULOSKELETAL: No obvious deformities. No clubbing or cyanosis. No edema. NEUROLOGICAL: Awake and alert. Moves upper and lower extremities spontaneously. Normal speech. PSYCHIATRIC: Appropriate mood and affect; insight and judgment normal. Results - Labs CBC & Chem 7: 12/19/17 03:56 12/20/17 03:40 Laboratory Results - last 24 hr 12/19/17 12/20/17 17:10 03:40 Sodium 142 Potassium 3.6 3.6 Chloride 108 H Carbon Dioxide 23.7 Anion Gap 10 BUN 9 Creatinine 0.98 Estimated GFR 65 L Random Glucose 52 L Calcium 8.4 L Magnesium 1.3 L 1.6 Assessment and Plan - Plan 87 year old elderly female, recently admitted for poss diverticulitis vs. enteritis. Presented to ED with weakness and recurrent abd. pain with diarrhea. Found dehydrated, hypernatremic and hypocalcemic. Abdominal pain/diarrhea with recent colitis - recent admission for the same Abdominal CT 12/12 suggested right lower quadrant enteritis Negative C. difficile on 12/17 Stool 12/17 showed rare WBCs and many budding yeast -12/20 on oral Cipro and Flagyl. Poor appetite. Worsening diarrhea despite Questran. Add Lactinex and consult GI Anemia, normocytic - likely chronic disease component -Hemoglobin stable, monitor Dehydration/poor oral intake -Resume IVF -Replace electrolytes as indicated, magnesium today Hypertension -Hold home diuretic Daily alcohol use,pt's son endorses 2-3 drinks of vodka daily Has been drinking more, . Concerned that she may be depressed. -No withdrawal symptoms noted, monitor -ETOH cessation counseling -Continue PO Folic acid and Thiamine Continue PT for deconditioning Heparin for DVT prophylaxis Discharge Planning: Discharge planning pending clinical improvement, better oral intake and less diarrhea
[2017-12-20] MEDS ORDERED: Mag Sulf 1 gm/100 ml Premix 100 ML IV.SIG ONE (10:00)
[2017-12-20] MEDS: Sod Chloride 0.9% Inj 1,000 ML IV.CONT SCH ×2 (10:59→22:07)
--- NOTE | 2017-12-20 14:25 | MB ---
cc: Daniele Harris MD DATE: 12/20/2017 TYPE OF CONSULTATION: GI. HISTORY OF PRESENT ILLNESS: This is an 87-year-old female patient with a history of hypertension, dyslipidemia, who was recently hospitalized with colitis several weeks ago. The patient was placed on IV antibiotics followed by oral antibiotics and was sent home on that. She had at that time a CAT scan that showed a normal colon, normal abdomen, but she was presumed to have diverticulitis and treated accordingly. The patient went home and did relatively speaking. Then, she started to have symptoms recurring again with left upper quadrant abdominal pain, frequent bowel movements described as watery at least 7-8 times per day, and she had multiple episodes of nausea and vomiting. She denied any fever, chills, or rigors. She denies any bleeding per rectum. She denies any other associated symptoms. The patient had a colonoscopy done back in 2012 that showed polyps. Type of polyps is unknown at this time. She also was found to have diverticulosis. She never had any followup colonoscopy afterwards. Last time when she was seen in the hospital, she was told that she will need to have a colonoscopy done after the resolving of her diverticulitis by 6-8 weeks. The patient never recovered from the first one, and so she did not have it so far. REVIEW OF SYSTEMS: All 14-point review of systems negative other than the ones mentioned in the history of present illness. PAST MEDICAL HISTORY: Hypertension, dyslipidemia, gastroesophageal reflux disease. SURGICAL HISTORY: Hip replacement, colonoscopy in 2012 that showed diverticulitis. FAMILY HISTORY: Noncontributory. PSYCHOSOCIAL HISTORY: She has good family support. No previous history of tobacco use. No history of alcoholism. MEDICATIONS: Currently on atenolol, atorvastatin, cholestyramine, Cipro, famotidine, folic acid, heparin, loperamide, losartan, metronidazole, and thiamine. ALLERGIES: ASPIRIN, NIFEDIPINE, AND CODEINE. PHYSICAL EXAMINATION: GENERAL: The patient appeared to be in good hydration status with good nutritional status as well. No jaundice or pallor. HEAD AND NECK: Normocephalic, atraumatic. Pupils equal, round and reactive to light. NECK: Supple neck. No lymphadenopathy. No thyromegaly. CHEST: Clear to auscultation bilaterally. No crackles or wheezes. CARDIOVASCULAR: Regular rate and rhythm. No murmurs. ABDOMEN: Tenderness mostly in the left abdomen and most prominently in left upper quadrant. No rebound tenderness. No rigidity. EXTREMITIES: Normal pulses. No edema. NEUROLOGIC: Cranial nerves 2-12 grossly intact. No motor or sensory deficits. SKIN: Intact. No rashes. LABORATORY DATA: White count 9.2, down from 14.2 on admission. Hemoglobin 9.3, hematocrit 27.3. Kidney function within normal limits. C. difficile negative. ASSESSMENT AND PLAN: This is an 87-year-old female patient with multiple comorbid conditions who presented with: 1. Abdominal pain, diarrhea, and occasional nausea and vomiting. 2. Recent history of diverticulitis. 3. Colonoscopy in 2012 showed evidence of diverticulosis. 4. Recurrence of her symptoms despite appropriate treatment. 5. Normal electrolytes. 6. Chronic anemia. We will need to continue antibiotics with a combination of ciprofloxacin and Flagyl. The patient will need to check her stool studies as well including ova and parasite, culture and sensitivity, and recheck for Clostridium toxin. We will need aggressive hydration, blood transfusion if needed, and will need to repeat colonoscopy as an outpatient after resolution of her colitis. We will follow up with you. Thank you for the consult. MD MARCIE Go/lilibeth , 01:55 PM , 02:05 PM
[2017-12-21] MEDS: Heparin - SQ 10,000 UNITS/ML Vial SQ SCH ×2 (05:02→17:05)
[2017-12-21] MEDS: metroNIDAZOLE 500 MG Tablet PO SCH ×3 (05:03→22:04)
[2017-12-21 07:41] LABS: Calcium 7.6 mg/dL (8.5-10.1); Carbon Dioxide 19.5 meq/L (21.0-32.0); Potassium 3.5 meq/L (3.5-5.1)
[2017-12-21] MEDS ORDERED: Dextrose 50% in Water 50 ML Vial IV.PUSH PRN (07:48)
[2017-12-21] MEDS: KCL 20 mEq/D5W/NaCl 0.45% Inj 1,000 ML IV.CONT SCH ×2 (08:26→19:56)
[2017-12-21] MEDS: Folic Acid 1 MG Tablet PO SCH (08:27)
[2017-12-21] MEDS: Lactobacillus Acidophilus/L. Spores Tablet PO SCH ×3 (08:27→17:05)
[2017-12-21] MEDS: Ciprofloxacin 500 MG Tablet PO SCH ×2 (08:27→20:06)
[2017-12-21] MEDS: Atenolol 50 MG Tablet PO SCH ×2 (08:27→20:07)
[2017-12-21] MEDS: Famotidine 20 MG Tablet PO SCH ×2 (08:28→20:07)
--- NOTE | 2017-12-21 11:50 | P.PNIM ---
Subjective Interval history: 3 bowel movements recorded overnight. Patient reports no appetite, blood glucose 49 this AM. She denies any abdominal pain currently. Physical Exam Vital signs: Vital Signs 12/20/17 12:00 12/20/17 16:00 12/20/17 20:00 Temperature 97.6 F 98.4 F 98.0 F Pulse Rate 89 103 H 94 H Respiratory Rate 18 17 18 Blood Pressure 114/55 L 130/74 115/58 L Pulse Oximetry 97 95 96 12/21/17 00:00 12/21/17 04:00 12/21/17 08:00 Temperature 98.2 F 98.1 F 97.4 F L Pulse Rate 88 85 80 Respiratory Rate 18 18 17 Blood Pressure 149/67 H 148/71 H 161/72 H Pulse Oximetry 98 92 L 99 Intake & Output 12/20/17 12/21/17 12/21/17 18:59 06:59 18:59 Intake Total 1060 / 1060 1120 / 1120 600 / 600 Output Total 300 / 300 Balance 760 / 760 1120 / 1120 600 / 600 Weight 64.9 kg Intake: IV 100 / 100 1000 / 1000 600 / 600 NS Inj 1,000 ML @ 84 mls/hr IV. 1000 / 1000 600 / 600 CONT .[id number] [facility] Rx#:[id number] Magnesium Sulfate 1 gm/D5W 100 100 / 100 ml Premix 100 ML @ 100 mls/hr IV.SIG ONCE ONE Rx#:[id number] Oral 960 / 960 120 / 120 Output: Urine 300 / 300 Other: # Voids 2 2 # Bowel Movements 1 3 Narrative: GENERAL: Well-developed well-nourished. In no acute distress. SKIN: Warm and dry. No lesions noted. CARDIOVASCULAR: Regular rate and rhythm. No murmur appreciated. RESPIRATORY: No accessory muscle use. Clear to auscultation. Breath sounds equal bilaterally. GASTROINTESTINAL: Abdomen soft, non-tender, nondistended. Bowel sounds x4. MUSCULOSKELETAL: No obvious deformities. No clubbing or cyanosis. No edema. NEUROLOGICAL: Awake and alert. Moves upper and lower extremities spontaneously. Normal speech. PSYCHIATRIC: Appropriate mood and affect; insight and judgment normal. Results - Labs CBC & Chem 7: 12/19/17 03:56 12/21/17 03:49 Laboratory Results - last 24 hr 09/12/3012/21/17 12/21/17 03:49 09:00 10:10 Sodium 143 Potassium 3.5 Chloride 113 H Carbon Dioxide 19.5 L Anion Gap 11 BUN 10 Creatinine 0.98 Estimated GFR 65 L POC Glucose 64 L 71 Random Glucose 49 L* Calcium 7.6 L D Assessment and Plan - Plan 87 year old elderly female, recently admitted for poss diverticulitis vs. enteritis. Presented to ED with weakness and recurrent abd. pain with diarrhea. Found dehydrated, hypernatremic and hypocalcemic. Abdominal pain/diarrhea with recent colitis - recent admission for the same Abdominal CT 12/12 suggested right lower quadrant enteritis Negative C. difficile on 12/17 Stool 12/17 showed rare WBCs and many budding yeast -12/21 continue oral Cipro and Flagyl. Poor appetite. Continue Questran and Lactinex - appreciated GI, consult. Recommend continue antibiotics, check her stool studies as well including ova and parasite, culture and sensitivity and recheck for Clostridium toxin. Repeat colonoscopy as an outpatient after resolution of her colitis. Anemia, normocytic - likely chronic disease component -Hemoglobin stable, monitor -recheck CBC in AM Dehydration/poor oral intake Hypoglycemia (blood glucose 49 12/21 AM) -IVF -Replace electrolytes as indicated - change IVF to D5 1/2 NS with 20 meq KCL @ 84ml/H Hypertension -Hold home diuretic Daily alcohol use,pt's son endorses 2-3 drinks of vodka daily Has been drinking more, . Concerned that she may be depressed. -No withdrawal symptoms noted, monitor -ETOH cessation counseling -Continue PO Folic acid and Thiamine Continue PT for deconditioning Heparin for DVT prophylaxis Discharge Planning: Discharge planning pending clinical improvement, better oral intake able to sustain glucose with out IV supplementation and less diarrhea Discussed case with Supervising physician Dr. Jordan
[2017-12-22] MEDS: metroNIDAZOLE 500 MG Tablet PO SCH ×3 (05:15→22:38)
[2017-12-22] MEDS: Heparin - SQ 10,000 UNITS/ML Vial SQ SCH ×2 (05:15→18:12)
[2017-12-22 06:53] LABS: Baso % (Auto) 0.4 % (0.0-2.0); Eos % (Auto) 0.2 % (0.0-4.0); Hematocrit 26.7 % (35.0-46.0); Hemoglobin 8.8 gm/dL (11.6-15.3); Lymph # (Auto) 0.6 th/mm3 (1.0-4.8); Lymph % (Auto) 6.2 % (9.0-44.0); Mean Corpuscular HGB Conc 33.1 % (32.0-36.0); Mean Corpuscular Hemoglobin 32.2 pg (27.0-34.0); Mean Corpuscular Volume 97.3 fL (80.0-100.0); Mono # (Auto) 0.5 th/mm3 (0.0-0.9); Mono % (Auto) 5.8 % (0.0-8.0); Neut # (Auto) 8.1 th/mm3 (1.8-7.7); Neut % (Auto) 87.4 % (16.0-70.0); Platelet Count 368 th/mm3 (150-450); Red Blood Count 2.74 mil/mm3 (4.00-5.30); Red Cell Distribution Width 15.9 % (11.6-17.2); White Blood Count 9.3 th/mm3 (4.0-11.0)
[2017-12-22 07:11] LABS: Calcium 7.5 mg/dL (8.5-10.1); Carbon Dioxide 22.3 meq/L (21.0-32.0); Potassium 3.8 meq/L (3.5-5.1)
[2017-12-22] MEDS: KCL 20 mEq/D5W/NaCl 0.45% Inj 1,000 ML IV.CONT SCH ×2 (08:08→20:38)
[2017-12-22] MEDS: Ciprofloxacin 500 MG Tablet PO SCH ×2 (08:10→20:40)
[2017-12-22] MEDS: Atenolol 50 MG Tablet PO SCH ×2 (08:10→20:40)
[2017-12-22] MEDS: Lactobacillus Acidophilus/L. Spores Tablet PO SCH ×3 (08:10→18:12)
[2017-12-22] MEDS: Famotidine 20 MG Tablet PO SCH ×2 (08:10→20:40)
[2017-12-22] MEDS: Folic Acid 1 MG Tablet PO SCH (08:10)
--- NOTE | 2017-12-22 09:38 | P.PN ---
Subjective Interval history: Follow-up visit for abdominal pain, possible enteritis versus diverticulitis. Patient seen and examined this morning in bed, complains of generalized abdominal "soreness" she denies any nausea or vomiting. Continues to have watery bowel movements, nurse reports 3 overnight. Repeat C. difficile has not yet been sent, discussed with nurse to please send today. Patient denies any fevers, chills, cough or shortness of breath. Physical Exam Vital signs: Vital Signs 12/21/17 12:00 12/21/17 16:00 12/21/17 20:00 Temperature 97.8 F 98.8 F 99 F Pulse Rate 84 93 H 108 H Respiratory Rate 18 18 18 Blood Pressure 145/66 H 172/77 H 162/77 H Pulse Oximetry 99 97 90 L 12/22/17 00:00 12/22/17 04:00 Temperature 99.6 F 98.7 F Pulse Rate 117 H 101 H Respiratory Rate 18 18 Blood Pressure 165/83 H 151/65 H Pulse Oximetry 90 L 96 Intake & Output 12/21/17 12/22/17 12/22/17 18:59 06:59 18:59 Intake Total 1200 / 1200 1240 / 1240 1000 / 1000 Balance 1200 / 1200 1240 / 1240 1000 / 1000 Weight 65.3 kg Intake: IV 600 / 600 1000 / 1000 1000 / 1000 D5W/1/2NS + KCL 20 mEq Inj 1, 1000 / 1000 1000 / 1000 000 ML @ 84 mls/hr IV.CONT . [id number] [facility] Rx#:[id number] NS Inj 1,000 ML @ 84 mls/hr IV. 600 / 600 CONT .[id number] [facility] Rx#:[id number] Oral 600 / 600 240 / 240 Other: # Voids 4 # Incontinent Voids 4 # Bowel Movements 2 # Incontinent Bowel Movements 3 Narrative: GENERAL: Well-developed well-nourished. In no acute distress. SKIN: Warm and dry. No lesions noted. CARDIOVASCULAR: Regular rate and rhythm. No murmur appreciated. RESPIRATORY: No accessory muscle use. Clear to auscultation. Breath sounds equal bilaterally. GASTROINTESTINAL: Abdomen soft, diffused tenderness, nondistended. Bowel sounds x4. MUSCULOSKELETAL: No obvious deformities. No clubbing or cyanosis. No edema. NEUROLOGICAL: Awake and alert. Moves upper and lower extremities spontaneously. Normal speech. PSYCHIATRIC: Appropriate mood and affect; insight and judgment normal. Results - Labs CBC & Chem 7: 12/22/17 04:54 12/22/17 04:54 Laboratory Results - last 24 hr 12/21/17 12/21/17 12/21/17 10:10 12:37 16:37 WBC RBC Hgb Hct MCV MCH MCHC RDW Plt Count MPV Neut % (Auto) Lymph % (Auto) [place] % (Auto) Eos % (Auto) Baso % (Auto) Neut # (Auto) Lymph # (Auto) [place] # (Auto) Eos # (Auto) Baso # (Auto) WBC Differential Differential Comment Sodium Potassium Chloride Carbon Dioxide Anion Gap BUN Creatinine Estimated GFR POC Glucose 71 103 136 H Random Glucose Calcium 12/21/17 12/22/17 12/22/17 20:06 04:54 04:54 WBC 9.3 RBC 2.74 L Hgb 8.8 L Hct 26.7 L MCV 97.3 MCH 32.2 MCHC 33.1 RDW 15.9 Plt Count 368 MPV 9.0 Neut % (Auto) 87.4 H Lymph % (Auto) 6.2 L [place] % (Auto) 5.8 Eos % (Auto) 0.2 Baso % (Auto) 0.4 Neut # (Auto) 8.1 H Lymph # (Auto) 0.6 L [place] # (Auto) 0.5 Eos # (Auto) 0.0 Baso # (Auto) 0.0 WBC Differential . Differential Comment Auto diff final Sodium 140 Potassium 3.8 Chloride 112 H Carbon Dioxide 22.3 Anion Gap 6 BUN 7 Creatinine 0.95 Estimated GFR 67 L POC Glucose 106 Random Glucose 122 H Calcium 7.5 L 12/22/17 07:39 WBC RBC Hgb Hct MCV MCH MCHC RDW Plt Count MPV Neut % (Auto) Lymph % (Auto) [place] % (Auto) Eos % (Auto) Baso % (Auto) Neut # (Auto) Lymph # (Auto) [place] # (Auto) Eos # (Auto) Baso # (Auto) WBC Differential Differential Comment Sodium Potassium Chloride Carbon Dioxide Anion Gap BUN Creatinine Estimated GFR POC Glucose 119 H Random Glucose Calcium Assessment and Plan - Plan 87 year old elderly female, recently admitted for poss diverticulitis vs. enteritis. Presented to ED with weakness and recurrent abd. pain with diarrhea. Found dehydrated, hypernatremic and hypocalcemic. Abdominal pain/diarrhea with recent colitis - recent admission for the same Abdominal CT 12/12 suggested right lower quadrant enteritis Negative C. difficile on 12/17 Stool 12/17 showed rare WBCs and many budding yeast - Continue oral Cipro and Flagyl. Poor appetite with ongoing diarrhea, GI following. -Continue Lactinex and PRN Imodium, increase Questran to BID. Anemia, normocytic - likely chronic disease component -Hemoglobin stable, monitor Dehydration/poor oral intake -Continue IVF -Replace electrolytes as indicated. Hypertension -Hold home diuretic Daily alcohol use,pt's son endorses 2-3 drinks of vodka daily Has been drinking more, . Concerned that she may be depressed. -No withdrawal symptoms noted, monitor -ETOH cessation counseling -Continue PO Folic acid and Thiamine Continue PT for deconditioning Heparin for DVT prophylaxis Code Status: 12/22: CODE STATUS discussed with patient and son Yimi at bedside. This was explained to patient and son as well as patient verbalized understanding. At this time patient would like to continue being full code, discussed with son at bedside as well as RN. Discussed Condition With: Patient, RN and Son Don Discharge Planning: Pending better p.o. intake and improvement in diarrhea. CM working on DC facility.
--- NOTE | 2017-12-22 16:32 | P.PNGI ---
Subjective Interval history: Recent is resting in the bed states she is feeling somewhat better but does still complain of some generalized weakness and diarrhea. No nausea no vomiting current hemoglobin 8.8 C. difficile negative <Cecille Dubois - Last Filed: 12/22/17 16:32> Physical Exam Vital signs: Vital Signs 12/21/17 20:00 12/22/17 00:00 12/22/17 04:00 Temperature 99 F 99.6 F 98.7 F Pulse Rate 108 H 117 H 101 H Respiratory Rate 18 18 18 Blood Pressure 162/77 H 165/83 H 151/65 H Pulse Oximetry 90 L 90 L 96 12/22/17 08:00 12/22/17 11:55 12/22/17 12:00 Temperature 98.0 F 99.0 F Pulse Rate 92 H 89 90 Respiratory Rate 17 17 Blood Pressure 127/60 135/67 Pulse Oximetry 94 L 94 L Intake & Output 12/21/17 12/22/17 12/22/17 18:59 06:59 18:59 Intake Total 1200 / 1200 1240 / 1240 1000 / 1000 Balance 1200 / 1200 1240 / 1240 1000 / 1000 Weight 65.3 kg Intake: IV 600 / 600 1000 / 1000 1000 / 1000 D5W/1/2NS + KCL 20 mEq Inj 1, 1000 / 1000 1000 / 1000 000 ML @ 84 mls/hr IV.CONT . [id number] [facility] Rx#:[id number] NS Inj 1,000 ML @ 84 mls/hr IV. 600 / 600 CONT .[id number] [facility] Rx#:[id number] Oral 600 / 600 240 / 240 Other: # Voids 4 # Incontinent Voids 4 # Bowel Movements 2 # Incontinent Bowel Movements 3 - Routine HEENT Exam ENT: Present: mucous membranes dry - Routine Neck Exam Present: supple - Routine Cardiovascular Exam Present: S1, S2 - Routine Abdominal Exam Present: soft (Left lower quadrant discomfort to light palpation soft bowel sounds) - Routine Skin Exam Present: pallor <Cecille Dubois - Last Filed: 12/22/17 16:32> Vital signs: Vital Signs 12/22/17 00:00 12/22/17 04:00 12/22/17 08:00 Temperature 99.6 F 98.7 F 98.0 F Pulse Rate 117 H 101 H 92 H Respiratory Rate 18 18 17 Blood Pressure 165/83 H 151/65 H 127/60 Pulse Oximetry 90 L 96 94 L 12/22/17 11:55 12/22/17 12:00 12/22/17 16:00 Temperature 99.0 F 98.4 F Pulse Rate 89 90 91 H Respiratory Rate 17 18 Blood Pressure 135/67 153/72 H Pulse Oximetry 94 L 93 L Intake & Output 12/22/17 12/22/17 12/23/17 06:59 18:59 06:59 Intake Total 1240 / 1240 1720 / 1720 1000 / 1000 Balance 1240 / 1240 1720 / 1720 1000 / 1000 Weight 65.3 kg Intake: IV 1000 / 1000 1000 / 1000 1000 / 1000 D5W/1/2NS + KCL 20 mEq Inj 1, 1000 / 1000 1000 / 1000 1000 / 1000 000 ML @ 84 mls/hr IV.CONT . [id number] [facility] Rx#:[id number] Oral 240 / 240 720 / 720 Other: # Voids 3 # Incontinent Voids 4 # Bowel Movements 3 # Incontinent Bowel Movements 3 <Daniele Harris A - Last Filed: 12/22/17 21:38> Results - Labs CBC & Chem 7: 12/22/17 04:54 12/22/17 04:54 Laboratory Results - last 24 hr 12/21/17 12/21/17 12/22/17 16:37 20:06 04:54 WBC 9.3 RBC 2.74 L Hgb 8.8 L Hct 26.7 L MCV 97.3 MCH 32.2 MCHC 33.1 RDW 15.9 Plt Count 368 MPV 9.0 Neut % (Auto) 87.4 H Lymph % (Auto) 6.2 L [place] % (Auto) 5.8 Eos % (Auto) 0.2 Baso % (Auto) 0.4 Neut # (Auto) 8.1 H Lymph # (Auto) 0.6 L [place] # (Auto) 0.5 Eos # (Auto) 0.0 Baso # (Auto) 0.0 WBC Differential . Differential Comment Auto diff final Sodium Potassium Chloride Carbon Dioxide Anion Gap BUN Creatinine Estimated GFR POC Glucose 136 H 106 Random Glucose Calcium 12/22/17 12/22/17 12/22/17 04:54 07:39 12:30 WBC RBC Hgb Hct MCV MCH MCHC RDW Plt Count MPV Neut % (Auto) Lymph % (Auto) [place] % (Auto) Eos % (Auto) Baso % (Auto) Neut # (Auto) Lymph # (Auto) [place] # (Auto) Eos # (Auto) Baso # (Auto) WBC Differential Differential Comment Sodium 140 Potassium 3.8 Chloride 112 H Carbon Dioxide 22.3 Anion Gap 6 BUN 7 Creatinine 0.95 Estimated GFR 67 L POC Glucose 119 H 91 Random Glucose 122 H Calcium 7.5 L <Cecille Dubois - Last Filed: 12/22/17 16:32> - Labs CBC & Chem 7: 12/22/17 04:54 12/22/17 04:54 Laboratory Results - last 24 hr 12/22/17 12/22/17 12/22/17 04:54 04:54 07:39 WBC 9.3 RBC 2.74 L Hgb 8.8 L Hct 26.7 L MCV 97.3 MCH 32.2 MCHC 33.1 RDW 15.9 Plt Count 368 MPV 9.0 Neut % (Auto) 87.4 H Lymph % (Auto) 6.2 L [place] % (Auto) 5.8 Eos % (Auto) 0.2 Baso % (Auto) 0.4 Neut # (Auto) 8.1 H Lymph # (Auto) 0.6 L [place] # (Auto) 0.5 Eos # (Auto) 0.0 Baso # (Auto) 0.0 WBC Differential . Differential Comment Auto diff final Sodium 140 Potassium 3.8 Chloride 112 H Carbon Dioxide 22.3 Anion Gap 6 BUN 7 Creatinine 0.95 Estimated GFR 67 L POC Glucose 119 H Random Glucose 122 H Calcium 7.5 L 12/22/17 12/22/17 12/22/17 12:30 17:07 20:53 WBC RBC Hgb Hct MCV MCH MCHC RDW Plt Count MPV Neut % (Auto) Lymph % (Auto) [place] % (Auto) Eos % (Auto) Baso % (Auto) Neut # (Auto) Lymph # (Auto) [place] # (Auto) Eos # (Auto) Baso # (Auto) WBC Differential Differential Comment Sodium Potassium Chloride Carbon Dioxide Anion Gap BUN Creatinine Estimated GFR POC Glucose 91 93 95 Random Glucose Calcium <Daniele Harris - Last Filed: 12/22/17 21:38> Assessment and Plan - Plan This is an 87-year-old female patient with multiple comorbid conditions who presented with: 1. Abdominal pain, diarrhea, and occasional nausea and vomiting. 2. Recent history of diverticulitis. 3. Colonoscopy in 2012 showed evidence of diverticulosis. 4. Recurrence of her symptoms despite appropriate treatment. 5. Normal electrolytes. 6. Chronic anemia. We will need to continue antibiotics with a combination of ciprofloxacin and Flagyl. The patient will need to check her stool studies as well including ova and parasite, culture and sensitivity, and recheck for Clostridium toxin. We will need aggressive hydration, blood transfusion if needed, and will need to repeat colonoscopy as an outpatient after resolution of her colitis. We will follow up with you. Dr. Harris 12/22/2017 patient states she is feeling somewhat better today but still has some left lower quadrant pain and soreness. States she is still having some diarrhea, C. difficile negative IgG antibody pending, recent history of diverticulitis. Will continue treatment and monitor her symptoms. Encourage p.o. fluids and hydration. Current hemoglobin 8.8 Plan Diet per attending including increased hydration Intake and output monitor diarrhea stools Monitor labs current hemoglobin 8.8, transfuse if needed Continue Cipro and Flagyl Questran, Pepcid, folic acid Supportive care Will need colonoscopy in 4-6 weeks as an outpatient once patient recovers from her current abdominal pain and symptoms Patient was seen per myself and Dr. Harris, this note was written on his behalf <Cecille Dubois - Last Filed: 12/22/17 16:32> - Attending Attestation Had long extensive discussion with the patient and her son, will follow up clinically, if still symptomatic colonoscopy despite the high risk. <Daniele Harris - Last Filed: 12/22/17 21:38>
[2017-12-23] MEDS: Heparin - SQ 10,000 UNITS/ML Vial SQ SCH ×2 (05:24→16:02)
[2017-12-23] MEDS: metroNIDAZOLE 500 MG Tablet PO SCH ×3 (05:24→21:45)
[2017-12-23 05:27] LABS: Calcium 7.1 mg/dL (8.5-10.1); Magnesium 1.2 mg/dL (1.5-2.5); Potassium 4.2 meq/L (3.5-5.1)
[2017-12-23 05:39] LABS: Total Protein 5.8 g/dL (6.4-8.2)
[2017-12-23] MEDS: Folic Acid 1 MG Tablet PO SCH (08:29)
[2017-12-23] MEDS: Atenolol 50 MG Tablet PO SCH ×2 (08:29→20:00)
[2017-12-23] MEDS: Ciprofloxacin 500 MG Tablet PO SCH ×2 (08:29→19:59)
[2017-12-23] MEDS: Lactobacillus Acidophilus/L. Spores Tablet PO SCH ×3 (08:29→18:31)
[2017-12-23] MEDS: Famotidine 20 MG Tablet PO SCH ×2 (08:29→20:00)
[2017-12-23] MEDS: KCL 20 mEq/D5W/NaCl 0.45% Inj 1,000 ML IV.CONT SCH ×3 (08:31→19:54)
[2017-12-23] MEDS ORDERED: Mag Sulf 1 gm/100 ml Premix 100 ML IV.SIG ONE (09:00)
[2017-12-23] MEDS: Magnesium Oxide 400 MG Tablet PO SCH ×2 (09:01→19:59)
--- NOTE | 2017-12-23 11:00 | P.PNIM ---
Subjective Interval history: Patient continues have poor appetite. With blood sugars dropping in the 60s with 65 this morning in which the 5 half-normal saline had to be restarted. She states it is hard and painful to swallow at times. She reports her loose stools has improved. She does not have significant abdominal pain unless she changes position. Physical Exam Vital signs: Vital Signs 12/22/17 11:55 12/22/17 12:00 12/22/17 16:00 Temperature 99.0 F 98.4 F Pulse Rate 89 90 91 H Respiratory Rate 17 18 Blood Pressure 135/67 153/72 H Pulse Oximetry 94 L 93 L 12/22/17 20:00 12/23/17 00:00 12/23/17 04:00 Temperature 98.3 F 98.5 F 98.1 F Pulse Rate 92 H 86 118 H Respiratory Rate 22 20 30 H Blood Pressure 119/59 L 142/76 H 194/96 H Pulse Oximetry 95 97 12/23/17 05:02 Temperature 99 F Pulse Rate 116 H Respiratory Rate 25 H Blood Pressure 149/80 H Pulse Oximetry Intake & Output 12/22/17 12/23/17 12/23/17 18:59 06:59 18:59 Intake Total 1720 / 1720 1000 / 1000 0 / 0 Balance 1720 / 1720 1000 / 1000 0 / 0 Weight 67.2 kg Intake: IV 1000 / 1000 1000 / 1000 0 / 0 D5W/1/2NS + KCL 20 mEq Inj 1, 1000 / 1000 1000 / 1000 000 ML @ 84 mls/hr IV.CONT . [id number] [facility] Rx#:[id number] Magnesium Sulfate 1 gm/D5W 100 0 / 0 ml Premix 100 ML @ 100 mls/hr IV.SIG ONCE ONE Rx#:[id number] Oral 720 / 720 0 / 0 Other: # Voids 3 # Incontinent Voids 2 # Bowel Movements 3 # Incontinent Bowel Movements 1 Narrative: GENERAL: Well-developed well-nourished. In no acute distress. SKIN: Warm and dry. No lesions noted. HEENT: Oropharynx and tongue with whitish plaque CARDIOVASCULAR: Regular rate and rhythm. No murmur appreciated. RESPIRATORY: No accessory muscle use. Clear to auscultation. Breath sounds equal bilaterally. GASTROINTESTINAL: Abdomen soft, mild tenderness of the left upper and lower quadrant with no rebound or guarding, nondistended. Bowel sounds x4. MUSCULOSKELETAL: No obvious deformities. No clubbing or cyanosis. No edema. NEUROLOGICAL: Awake and alert. Moves upper and lower extremities spontaneously. Normal speech. Results - Labs CBC & Chem 7: 12/22/17 04:54 12/23/17 04:02 Laboratory Results - last 24 hr 12/22/17 12/22/17 12/22/17 12:30 17:07 20:53 Sodium Potassium Chloride Carbon Dioxide Anion Gap BUN Creatinine Estimated GFR POC Glucose 91 93 95 Random Glucose Calcium Prot Corrected Calcium Magnesium Total Protein 12/23/17 12/23/17 12/23/17 04:02 07:52 09:39 Sodium 140 Potassium 4.2 Chloride 112 H Carbon Dioxide 21.0 Anion Gap 7 BUN 5 L Creatinine 0.85 Estimated GFR 76 L POC Glucose 62 L 68 Random Glucose 111 H Calcium 7.1 L* Prot Corrected Calcium 7.8 L Magnesium 1.2 L Total Protein 5.8 L Assessment and Plan - Plan 87 year old elderly female, recently admitted for poss diverticulitis vs. enteritis. Presented to ED with weakness and recurrent abd. pain with diarrhea. Found dehydrated, hypernatremic and hypocalcemic. Abdominal pain/diarrhea with recent colitis - recent admission for the same Abdominal CT 12/12 suggested right lower quadrant enteritis Negative C. difficile on 12/17 Stool 12/17 showed rare WBCs and many budding yeast - Continue oral Cipro and Flagyl. Poor appetite with ongoing diarrhea, GI following. -Continue Lactinex and PRN Imodium, increase Questran to BID. Thrushstart Diflucan and nystatin Anemia, normocytic - likely chronic disease component -Hemoglobin stable, monitor Dehydration/poor oral intake -Continue IVF -Replace electrolytes as indicated. Hypertension, chronic essential -Hold home diuretic Hypoglycemia due to poor p.o. intakeuntil patient's oral intake is improved will need to hang D5 half-normal saline and encourage p.o. intake. Will treat thrush. Daily alcohol use,pt's son endorses 2-3 drinks of vodka daily Has been drinking more, . Concerned that she may be depressed. -No withdrawal symptoms noted, monitor -ETOH cessation counseling -Continue PO Folic acid and Thiamine Continue PT for deconditioning Heparin for DVT prophylaxis Discussed Condition With: Son at bedside Discharge Planning: snf facility placement when stable.
[2017-12-23] MEDS ORDERED: Fluconazole 100 MG Tablet PO ONE (11:02)
--- NOTE | 2017-12-23 12:32 | P.PNGI ---
Subjective Interval history: Patient is an 87-year-old female admitted on 12/17/2017 with complaints of left- sided lower abdominal pain and diarrhea. Patient resting in bed watching TV son at bedside. Patient reports feeling stronger working with physical therapy and will increase activity. Patient denies nausea and vomiting at this time she states appetite is poor. She is reporting mild left-sided abdominal pain that is intermittent. Patient denies difficulty or pain with swallowing. Patient started on Magic mouthwash swish and swallow for thrush per attending. <Kayleigh Izaguirre - Last Filed: 12/23/17 12:08> Physical Exam Vital signs: Vital Signs 12/22/17 16:00 12/22/17 20:00 12/23/17 00:00 Temperature 98.4 F 98.3 F 98.5 F Pulse Rate 91 H 92 H 86 Respiratory Rate 18 22 20 Blood Pressure 153/72 H 119/59 L 142/76 H Pulse Oximetry 93 L 95 97 12/23/17 04:00 12/23/17 05:02 Temperature 98.1 F 99 F Pulse Rate 118 H 116 H Respiratory Rate 30 H 25 H Blood Pressure 194/96 H 149/80 H Pulse Oximetry Intake & Output 12/22/17 12/23/17 12/23/17 18:59 06:59 18:59 Intake Total 1720 / 1720 1000 / 1000 0 / 0 Balance 1720 / 1720 1000 / 1000 0 / 0 Weight 67.2 kg Intake: IV 1000 / 1000 1000 / 1000 0 / 0 D5W/1/2NS + KCL 20 mEq Inj 1, 1000 / 1000 1000 / 1000 000 ML @ 84 mls/hr IV.CONT . [id number] [facility] Rx#:[id number] Magnesium Sulfate 1 gm/D5W 100 0 / 0 ml Premix 100 ML @ 100 mls/hr IV.SIG ONCE ONE Rx#:[id number] Oral 720 / 720 0 / 0 Other: # Voids 3 # Incontinent Voids 2 # Bowel Movements 3 # Incontinent Bowel Movements 1 - Constitutional no acute distress, cooperative - Routine HEENT Exam Head: Present: normocephalic - Routine Respiratory Exam Present: CTA bilaterally. Absent: respiratory distress Comments: Mild shortness of breath noted on exertion. Patient currently wearing 2 L nasal cannula - Routine Cardiovascular Exam Present: S1, S2 - Routine Abdominal Exam Present: soft, normoactive bowel sounds, tenderness (left lower quadrant tenderness on palpation). Absent: guarding Comments: Abdomen soft with mild distention positive bowel sounds present - Routine Extremities Exam Present: pulses intact. Absent: edema - Routine Skin Exam Present: dry, warm - Routine Neurological Exam Present: alert, oriented X3 - Detailed Neurological Exam: Coma Scale Eye Opening: Spontaneous Verbal Response: Oriented Motor Response: Obey commands [place] Coma Scale Total: 15 - Routine Psychiatric Exam Present: normal affect, cooperative <Kayleigh Izaguirre - Last Filed: 12/23/17 12:08> Vital signs: Vital Signs 12/22/17 20:00 12/23/17 00:00 12/23/17 04:00 Temperature 98.3 F 98.5 F 98.1 F Pulse Rate 92 H 86 118 H Respiratory Rate 22 20 30 H Blood Pressure 119/59 L 142/76 H 194/96 H Pulse Oximetry 95 97 12/23/17 05:02 12/23/17 08:00 12/23/17 12:00 Temperature 99 F 98.4 F 99.0 F Pulse Rate 116 H 114 H 106 H Respiratory Rate 25 H 18 18 Blood Pressure 149/80 H 134/63 98/53 L Pulse Oximetry 97 89 L Intake & Output 12/22/17 12/23/17 12/23/17 18:59 06:59 18:59 Intake Total 1720 / 1720 1000 / 1000 1000 / 1000 Balance 1720 / 1720 1000 / 1000 1000 / 1000 Weight 67.2 kg Intake: IV 1000 / 1000 1000 / 1000 1000 / 1000 D5W/1/2NS + KCL 20 mEq Inj 1, 1000 / 1000 1000 / 1000 1000 / 1000 000 ML @ 84 mls/hr IV.CONT . [id number] [facility] Rx#:[id number] Magnesium Sulfate 1 gm/D5W 100 0 / 0 ml Premix 100 ML @ 100 mls/hr IV.SIG ONCE ONE Rx#:[id number] Oral 720 / 720 0 / 0 Other: # Voids 3 # Incontinent Voids 2 # Bowel Movements 3 # Incontinent Bowel Movements 1 <Daniele Harris - Last Filed: 12/23/17 16:24> Results - Labs CBC & Chem 7: 12/22/17 04:54 12/23/17 04:02 Laboratory Results - last 24 hr 12/22/17 12/22/1712/22/18 12:30 17:07 20:53 Sodium Potassium Chloride Carbon Dioxide Anion Gap BUN Creatinine Estimated GFR POC Glucose 91 93 95 Random Glucose Calcium Prot Corrected Calcium Magnesium Total Protein 12/23/17 12/23/17 12/23/17 04:02 07:52 09:39 Sodium 140 Potassium 4.2 Chloride 112 H Carbon Dioxide 21.0 Anion Gap 7 BUN 5 L Creatinine 0.85 Estimated GFR 76 L POC Glucose 62 L 68 Random Glucose 111 H Calcium 7.1 L* Prot Corrected Calcium 7.8 L Magnesium 1.2 L Total Protein 5.8 L <Kayleigh Izaguirre - Last Filed: 12/23/17 12:08> - Labs CBC & Chem 7: 12/22/17 04:54 12/23/17 04:02 Laboratory Results - last 24 hr 12/17/17 12/22/17 12/22/17 17:30 17:07 20:53 Sodium Potassium Chloride Carbon Dioxide Anion Gap BUN Creatinine Estimated GFR POC Glucose 93 95 Random Glucose Calcium Prot Corrected Calcium Magnesium Total Protein E. histolytica IgG Ab Negative 12/23/17 12/23/17 12/23/17 04:02 07:52 09:39 Sodium 140 Potassium 4.2 Chloride 112 H Carbon Dioxide 21.0 Anion Gap 7 BUN 5 L Creatinine 0.85 Estimated GFR 76 L POC Glucose 62 L 68 Random Glucose 111 H Calcium 7.1 L* Prot Corrected Calcium 7.8 L Magnesium 1.2 L Total Protein 5.8 L E. histolytica IgG Ab <Daniele Harris - Last Filed: 12/23/17 16:24> Assessment and Plan - Plan This is an 87-year-old female patient with multiple comorbid conditions who presented with: 1. Abdominal pain, diarrhea, and occasional nausea and vomiting. 2. Recent history of diverticulitis. 3. Colonoscopy in 2012 showed evidence of diverticulosis. 4. Recurrence of her symptoms despite appropriate treatment. 5. Normal electrolytes. 6. Chronic anemia. We will need to continue antibiotics with a combination of ciprofloxacin and Flagyl. The patient will need to check her stool studies as well including ova and parasite, culture and sensitivity, and recheck for Clostridium toxin. We will need aggressive hydration, blood transfusion if needed, and will need to repeat colonoscopy as an outpatient after resolution of her colitis. We will follow up with you. Dr. Harris 12/22/2017 patient states she is feeling somewhat better today but still has some left lower quadrant pain and soreness. States she is still having some diarrhea, C. difficile negative IgG antibody pending, recent history of diverticulitis. Will continue treatment and monitor her symptoms. Encourage p.o. fluids and hydration. Current hemoglobin 8.8 12/23/17-patient sitting up in bed, patient states she is feeling slightly better today. She reports left lower quadrant abdominal pain on palpation with exam. Patient states her stools are forming they are now soft and no longer loose with no noted blood. Patient denies nausea or vomiting. Patient encouraged to increase p.o. intake and fluids. Most recent labs done on December 22, 2017 reveal hemoglobin 8.8 hematocrit 26.7 WBC 9.3 most likely due to patient's poor appetite blood glucose noted to be in the 60s. Patient currently on cardiac diet and is aware that she may have foods of her choice. We will continue to monitor closely. Plan Diet per attending - encourage increase in Po intake Monitor intake and output Monitor for diarrhea Monitor thrush- Magic mouthwash and Continue to monitor labs Continue Questran, Cipro, Flagyl, Lactinex Supportive care Will will consider need for colonoscopy when patient stable discussed this option with her son who is in agreement Patient was seen per myself and Dr. Harris and this note was written on his behalf. <Kayleigh Izaguirre - Last Filed: 12/23/17 12:08> - Attending Attestation Continued to improve, encourage PO intake and continue current treatment plan. <Daniele Harris - Last Filed: 12/23/17 16:24>
[2017-12-23] MEDS ORDERED: Nystatin Liq 500,000 UNIT/5 ML UDC SWISH-SWAL SCH (13:00)
[2017-12-23] MEDS: Nystatin/Diphenhydramine/Lidocaine Mouthwash (Adult) 120 ML Botttle SWISH-SWAL SCH ×3 (13:16→19:59)
[2017-12-23] MEDS: Acetaminophen 325 MG Tablet PO PRN (15:45)
[2017-12-24] MEDS: Heparin - SQ 10,000 UNITS/ML Vial SQ SCH ×2 (05:33→17:23)
[2017-12-24] MEDS: metroNIDAZOLE 500 MG Tablet PO SCH ×3 (05:33→22:54)
[2017-12-24 06:51] LABS: Calcium 6.9 mg/dL (8.5-10.1); Carbon Dioxide 22.5 meq/L (21.0-32.0); Magnesium 1.5 mg/dL (1.5-2.5); Potassium 3.9 meq/L (3.5-5.1)
[2017-12-24 07:02] LABS: Total Protein 5.1 g/dL (6.4-8.2)
[2017-12-24] MEDS ORDERED: Phenylephrine/NS 1000 MCG/10ML Syringe IV.PUSH ONE (08:00)
[2017-12-24] MEDS ORDERED: Lidocaine PF 1% Inj 5 ML Syringe OTHER ONE (08:00)
[2017-12-24] MEDS ORDERED: Succinylcholine Inj 100 MG/5 ML Syringe IV.PUSH ONE (08:00)
[2017-12-24] MEDS: Nystatin/Diphenhydramine/Lidocaine Mouthwash (Adult) 120 ML Botttle SWISH-SWAL SCH ×4 (09:35→22:23)
[2017-12-24] MEDS: Lactobacillus Acidophilus/L. Spores Tablet PO SCH ×3 (09:35→17:23)
[2017-12-24] MEDS: Famotidine 20 MG Tablet PO SCH ×2 (09:35→22:23)
[2017-12-24] MEDS: Atenolol 50 MG Tablet PO SCH ×2 (09:36→22:24)
[2017-12-24] MEDS: Ciprofloxacin 500 MG Tablet PO SCH ×2 (09:36→22:24)
[2017-12-24] MEDS: Folic Acid 1 MG Tablet PO SCH (09:36)
[2017-12-24] MEDS: Magnesium Oxide 400 MG Tablet PO SCH ×2 (09:36→22:23)
[2017-12-24] MEDS: Acetaminophen 325 MG Tablet PO PRN (09:45)
--- NOTE | 2017-12-24 10:48 | P.PNIM ---
Subjective Interval history: Still with poor appetite and does not feel like she is eating. Still complains of pain mostly on the right side. Physical Exam Vital signs: Vital Signs 12/23/17 12:00 12/23/17 16:00 12/23/17 20:00 Temperature 99.0 F 98.7 F 97.9 F Pulse Rate 106 H 92 H 89 Respiratory Rate 18 20 22 Blood Pressure 98/53 L 117/58 L 108/56 L Pulse Oximetry 89 L 96 96 12/24/17 00:00 12/24/17 00:05 12/24/17 04:00 Temperature 97.4 F L 97.7 F Pulse Rate 84 82 83 Respiratory Rate 22 22 Blood Pressure 107/58 L 107/51 L Pulse Oximetry 99 99 12/24/17 08:00 Temperature 97.5 F L Pulse Rate 89 Respiratory Rate 18 Blood Pressure 124/57 L Pulse Oximetry 95 Intake & Output 12/23/17 12/24/17 12/24/17 18:59 06:59 18:59 Intake Total 1340 / 1340 120 / 120 Balance 1340 / 1340 120 / 120 Weight 68.3 kg Intake: IV 1100 / 1100 D5W/1/2NS + KCL 20 mEq Inj 1, 1000 / 1000 000 ML @ 84 mls/hr IV.CONT . [id number] [facility] Rx#:[id number] Magnesium Sulfate 1 gm/D5W 100 100 / 100 ml Premix 100 ML @ 100 mls/hr IV.SIG ONCE ONE Rx#:[id number] Oral 240 / 240 120 / 120 Other: # Incontinent Voids 3 # Urine Diapers 4 # Bowel Movements 1 # Incontinent Bowel Movements 3 Narrative: GENERAL: Well-developed well-nourished. In no acute distress. SKIN: Warm and dry. No lesions noted. HEENT: Oropharynx and tongue with whitish plaque CARDIOVASCULAR: Regular rate and rhythm. No murmur appreciated. RESPIRATORY: No accessory muscle use. Clear to auscultation. Breath sounds equal bilaterally. GASTROINTESTINAL: Abdomen soft, mild tenderness of the right upper and lower quadrant with no rebound or guarding, nondistended. Bowel sounds x4. MUSCULOSKELETAL: No obvious deformities. No clubbing or cyanosis. No edema. NEUROLOGICAL: Awake and alert. Moves upper and lower extremities spontaneously. Normal speech. Results - Labs CBC & Chem 7: 12/22/17 04:54 12/24/17 05:14 Laboratory Results - last 24 hr 12/17/17 12/23/17 12/23/17 17:30 17:34 19:56 Sodium Potassium Chloride Carbon Dioxide Anion Gap BUN Creatinine Estimated GFR POC Glucose 123 H 111 H Random Glucose Calcium Prot Corrected Calcium Magnesium Total Protein E. histolytica IgG Ab Negative 12/24/17 05:14 Sodium 139 Potassium 3.9 Chloride 108 H Carbon Dioxide 22.5 Anion Gap 9 BUN 9 Creatinine 0.98 Estimated GFR 65 L POC Glucose Random Glucose 137 H Calcium 6.9 L* Prot Corrected Calcium 7.9 L Magnesium 1.5 Total Protein 5.1 L D E. histolytica IgG Ab Assessment and Plan - Plan 87 year old elderly female, recently admitted for poss diverticulitis vs. enteritis. Presented to ED with weakness and recurrent abd. pain with diarrhea. Found dehydrated, hypernatremic and hypocalcemic. 1. Abdominal pain/diarrhea with recent colitis - recent admission for the same Abdominal CT 12/12 suggested right lower quadrant enteritis Negative C. difficile on 12/17 Stool 12/17 showed rare WBCs and many budding yeast - Continue oral Cipro and Flagyl. Poor appetite with ongoing diarrhea, GI following. -Continue Lactinex and PRN Imodium, increase Questran to BID. Consideration for colonoscopy when stable. 2. Anorexia likely due to the colitiscurrently on D5 as patient continues a poor p.o. intake. Will get a dietitian consultation as patient may need to be on PPN persistent poor no p.o. intake. 3. Thrushstart Diflucan and nystatin 4. Anemia, normocytic - likely chronic disease component -Hemoglobin stable, monitor 5. Dehydration/poor oral intake -Continue IVF -Replace electrolytes as indicated. 6. Hypertension, chronic essential -Hold home diuretic 7. Hypoglycemia due to poor p.o. intakeuntil patient's oral intake is improved will need to hang D5 half-normal saline and encourage p.o. intake. Will treat thrush. 8. Hypomagnesium -repleted Daily alcohol use,pt's son endorses 2-3 drinks of vodka daily Has been drinking more, . Concerned that she may be depressed. -No withdrawal symptoms noted, monitor -ETOH cessation counseling -Continue PO Folic acid and Thiamine Continue PT for deconditioning Heparin for DVT prophylaxis Discussed Condition With: Son at bedside Discharge Planning: jail facility placement when stable.
--- NOTE | 2017-12-24 11:24 | P.PNGI ---
Subjective Interval history: Pt still with poor PO intake. States she feels extremely full and bloated after only a few bites. Reports diarrhea, states incontinence, states this has been going on a long time. Denies nausea, vomiting. <Natalie Bojorquez - Last Filed: 12/24/17 11:15> Physical Exam Vital signs: Vital Signs 12/23/17 12:00 12/23/17 16:00 12/23/17 20:00 Temperature 99.0 F 98.7 F 97.9 F Pulse Rate 106 H 92 H 89 Respiratory Rate 18 20 22 Blood Pressure 98/53 L 117/58 L 108/56 L Pulse Oximetry 89 L 96 96 12/24/17 00:00 12/24/17 00:05 12/24/17 04:00 Temperature 97.4 F L 97.7 F Pulse Rate 84 82 83 Respiratory Rate 22 22 Blood Pressure 107/58 L 107/51 L Pulse Oximetry 99 99 12/24/17 08:00 Temperature 97.5 F L Pulse Rate 89 Respiratory Rate 18 Blood Pressure 124/57 L Pulse Oximetry 95 Intake & Output 12/23/17 12/24/17 12/24/17 18:59 06:59 18:59 Intake Total 1340 / 1340 120 / 120 Balance 1340 / 1340 120 / 120 Weight 68.3 kg Intake: IV 1100 / 1100 D5W/1/2NS + KCL 20 mEq Inj 1, 1000 / 1000 000 ML @ 84 mls/hr IV.CONT . [id number] [facility] Rx#:[id number] Magnesium Sulfate 1 gm/D5W 100 100 / 100 ml Premix 100 ML @ 100 mls/hr IV.SIG ONCE ONE Rx#:[id number] Oral 240 / 240 120 / 120 Other: # Incontinent Voids 3 # Urine Diapers 4 # Bowel Movements 1 # Incontinent Bowel Movements 3 - Constitutional no acute distress - Routine HEENT Exam Head: Present: normocephalic, atraumatic - Routine Respiratory Exam Absent: accessory muscle use - Routine Abdominal Exam Present: normoactive bowel sounds, distended. Absent: tenderness Comments: semi-firm - Routine Skin Exam Present: dry, warm - Routine Neurological Exam Present: alert, oriented X3 <Natalie Bojorquez - Last Filed: 12/24/17 11:15> Vital signs: Vital Signs 12/23/17 16:00 12/23/17 20:00 12/24/17 00:00 Temperature 98.7 F 97.9 F 97.4 F L Pulse Rate 92 H 89 84 Respiratory Rate 20 22 22 Blood Pressure 117/58 L 108/56 L 107/58 L Pulse Oximetry 96 96 99 12/24/17 00:05 12/24/17 04:00 12/24/17 08:00 Temperature 97.7 F 97.5 F L Pulse Rate 82 83 89 Respiratory Rate 22 18 Blood Pressure 107/51 L 124/57 L Pulse Oximetry 99 95 12/24/17 12:00 Temperature 97.9 F Pulse Rate 88 Respiratory Rate 18 Blood Pressure 102/57 L Pulse Oximetry 95 Intake & Output 12/23/17 12/24/17 12/24/17 18:59 06:59 18:59 Intake Total 1340 / 1340 120 / 120 Balance 1340 / 1340 120 / 120 Weight 68.3 kg Intake: IV 1100 / 1100 D5W/1/2NS + KCL 20 mEq Inj 1, 1000 / 1000 000 ML @ 84 mls/hr IV.CONT . [id number] [facility] Rx#:[id number] Magnesium Sulfate 1 gm/D5W 100 100 / 100 ml Premix 100 ML @ 100 mls/hr IV.SIG ONCE ONE Rx#:[id number] Oral 240 / 240 120 / 120 Other: # Incontinent Voids 3 # Urine Diapers 4 # Bowel Movements 1 # Incontinent Bowel Movements 3 <Daniele Harris - Last Filed: 12/24/17 14:41> Results - Labs CBC & Chem 7: 12/22/17 04:54 12/24/17 05:14 Laboratory Results - last 24 hr 12/17/17 12/23/17 12/23/17 17:30 17:34 19:56 Sodium Potassium Chloride Carbon Dioxide Anion Gap BUN Creatinine Estimated GFR POC Glucose 123 H 111 H Random Glucose Calcium Prot Corrected Calcium Magnesium Total Protein E. histolytica IgG Ab Negative 12/24/17 05:14 Sodium 139 Potassium 3.9 Chloride 108 H Carbon Dioxide 22.5 Anion Gap 9 BUN 9 Creatinine 0.98 Estimated GFR 65 L POC Glucose Random Glucose 137 H Calcium 6.9 L* Prot Corrected Calcium 7.9 L Magnesium 1.5 Total Protein 5.1 L D E. histolytica IgG Ab <Natalie Bojorquez - Last Filed: 12/24/17 11:15> - Labs CBC & Chem 7: 12/22/17 04:54 12/24/17 05:14 Laboratory Results - last 24 hr 12/23/17 12/23/17 12/24/17 17:34 19:56 05:14 Sodium 139 Potassium 3.9 Chloride 108 H Carbon Dioxide 22.5 Anion Gap 9 BUN 9 Creatinine 0.98 Estimated GFR 65 L POC Glucose 123 H 111 H Random Glucose 137 H Calcium 6.9 L* Prot Corrected Calcium 7.9 L Magnesium 1.5 Total Protein 5.1 L D 12/24/17 11:37 Sodium Potassium Chloride Carbon Dioxide Anion Gap BUN Creatinine Estimated GFR POC Glucose 90 Random Glucose Calcium Prot Corrected Calcium Magnesium Total Protein - Imaging Impressions Abdomen X-Ray 12/24/17 00:00 CONCLUSION: Dilated small bowel with collapse of the colon most characteristic of small bowel obstructive process. Calcific atherosclerotic vascular disease <Daniele Harris - Last Filed: 12/24/17 14:41> Assessment and Plan - Plan Assessment: 1. Abdominal pain, diarrhea, and occasional nausea and vomiting. CT abdomen and pelvis WO IV contrast (12/12) Probable ileus related to bowel wall thickening involving the small bowel loops in the right lower quadrant suggesting an enteritis. Severe diverticulosis without diverticulitis. C. Diff stool negative. 2. Recent history of diverticulitis 3. Cholelithiasis. 4. Diffuse atherosclerosis. 2. Recent history of diverticulitis. 3. Colonoscopy in 2012 showed evidence of diverticulosis. 4. Recurrence of her symptoms despite appropriate treatment. 5. Normal electrolytes. 6. Chronic anemia. (12/24) Pt complaining of abdominal bloating, unable to eat more than a few bites or sips of water at a time. Abdomen does appear distended. States she is having diarrhea, incontinent, this has been going on for a while. Plan: Ova and parasites stool Enteric pathogens stool KUB ? GES depending on findings Continue Cipro and Flagyl [employer] consult per primary for TPN/PPN Further recommendations to follow Pt has been seen and examined by myself and Dr. Harris and this note is written on his behalf <Natalie Bojorquez - Last Filed: 12/24/17 11:15> - Attending Attestation Slow improvement in her condition, will follow up with you. <Daniele Harris - Last Filed: 12/24/17 14:41>
[2017-12-24] MEDS: KCL 20 mEq/D5W/NaCl 0.45% Inj 1,000 ML IV.CONT SCH ×2 (11:41→22:55)
[2017-12-24] MEDS ORDERED: Fluconazole 100 MG Tablet PO ONE (12:00)
[2017-12-24] MEDS: DRONABINOL 2.5 MG CAPSULE PO SCH ×2 (12:45→15:07)
--- NOTE | 2017-12-24 12:46 | P.DIET ---
Nutritional Evaluation Type of nutrition evaluation: initial Nutrition screening: [facility] [place] (TPN/PPN) Subjective Subjective Comments: Refused bkfst this morning. Objective - Diagnosis Generalized Weakness, Hypomagnesemia - Objective % IBW: 120 (IBW = 125#) Body Weight Used for Calculations: Actual (68.3 kg) Energy Needs - Lower Range (kCal/kg): 25 Energy Needs - Upper Range (kCal/kg): 30 Lower Limit kCal/kg (kCals): 1,708 Upper Limit kCal/kg (kCals): 2,049 Lower Limit Protein Factor (Grams per Kg): 1.0 Upper Limit Protein Factor (Grams per Kg): 1.5 Lower Protein Needs (Protein): 68 Upper Protein Needs (Protein): 102 Dietitian Reviewed in Medical Record: Current diet, Curent medications, Intake & Output, Labs, Medical history Diet Order: Heart Healthy Objective Comments: Marinol started 12/24 Assessment Assessment: Pt with poor po intake and complaints of bloating, early satiety and diarrhea. Pt also has thrush. Pt will be unable to meet 100% of her needs with PPN so TPN would be best if PICC can be placed. To meet needs with TPN, recommend Clinimix E 5/20 @ 65 mls/hr with 20% lipids @ 10 mls/hr to provide a total of 1853 kcals and 78 gms protein. For PPN, recommend Clinimix E 4.25/5 @ 75 mls/hr with 10% lipids @ 10 mls/hr to provide a total of 1092 kcals and 77 gms protein. Monitor glucose closely. Request weekly TG while on nutrition support. Recommendations: For PPN: Clinimix E 4.25/5 @ 75 mls/hr For TPN: Clinimix E 5/20 @ 65 mls/hr LIPIDS: 20% lipids @ 10 mls/hr Dietitian to Monitor: Lab values, Glucose level, Intake & Output, TPN/PPN tolerance, Weight change, PO Intake, Medical course
--- NOTE | 2017-12-24 13:18 | XR ---
EXAM DATE: 12/24/2017 1:07 PM EDT AGE/SEX: 87 years / Female INDICATIONS: Abdominal distention. CLINICAL DATA: This is the patient's initial encounter. Patient reports that signs and symptoms have been present for 2 days and indicates a pain score of 4/10. MEDICAL/SURGICAL HISTORY: . Gastroesophageal reflux disease. Hypertension.. . Left hip replace ment. COMPARISON: [facility], CT ABDOMEN & PELVIS W/O CONTRAST, 12/12/2017. . FINDINGS: Multiple distended small intestinal loops are seen centrally in the abdomen and within the left side of the pelvis. The colon appears collapsed. 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 There is calcific atherosclerotic disease of the abdominal aorta. Left hip listhesis is noted. CONCLUSION: Dilated small bowel with collapse of the colon most characteristic of small bowel obstructive process . Calcific atherosclerotic vascular disease Electronically signed by: Bhavesh Smith MD 12/24/2017 1:16 PM EDT
--- NOTE | 2017-12-24 18:50 | CT ---
EXAM DATE: 12/24/2017 6:16 PM EDT AGE/SEX: 87 years / Female INDICATIONS: Abdominal pain. CLINICAL DATA: This is the patient's initial encounter. Patient reports that signs and symptoms have been present for 1 day and indicates a pain score of 4/10. MEDICAL/SURGICAL HISTORY: Gastroesophageal reflux disease. Hypertension. . Left hip replacemen t. ORAL CONTRAST: No oral contrast ingested. RADIATION DOSE: 7.44 CTDI (mGy) COMPARISON: [facility], CT ABDOMEN & PELVIS W/O CONTRAST, 12/12/2017. . TECHNIQUE: Multiple contiguous axial images were obtained through the abdomen and pelvis following b olus infusion of 69 ml Omnipaque 350 (iohexol) nonionic water-soluble contrast as a single exam dos e. No oral contrast ingested. Using automated exposure control and adjustment of the mA and/or kV ac cording to patient size, radiation dose was kept as low as reasonably achievable to obtain optimal di agnostic quality images. DICOM format image data is available electronically for review and comparis on. FINDINGS: Lower Lungs: There are small bilateral pleural effusions. Consolidation is noted in the posterior low er lobes right greater than left. Liver: The liver has a homogeneous density without space-occupying lesion. There is no dilation of th e biliary tree. Spleen: Homogeneous density without enlargement. Pancreas: Unremarkable without mass or calcification. Kidneys: Normal in size and shape. No evidence of mass or hydronephrosis. Adrenal Glands: Unremarkable. Aorta: The aorta and proximal iliac vessels are grossly unremarkable without aneurysmal dilation. Bowel/Mesentery: There is a small to moderate amount of free air present greatest in the right hemid iaphragm on the anterior upper abdomen. There is an abnormal bowel gas pattern with multiple loops of mildly dilated small bowel measuring up to 3.7 cm. There are multiple air-fluid levels. The colon co ntains fluid distally near multiple diverticuli involving the sigmoid colon which are filled with flu id as well. There is an air-fluid level in the stomach. There is no pneumatosis. There is no visualiz ed mass. Abdominal Wall: Intact. Retroperitoneum: No evidence of adenopathy in the retrocrural, para-aortic, or deep pelvic regions. Bladder: Contours are smooth. Reproductive Organs: No abnormal masses or calcifications seen. Inguinal: The inguinal region there is diffuse osteopenia. The patient is status post left hip arthr oplasty. Is unremarkable without evidence of adenopathy. Bony Structures: Unremarkable. CONCLUSION: 1. Small to moderate amount of free air of concern for ruptured viscus. 2. Abnormal bowel gas pattern with dilated loops of small bowel and air-fluid levels most characteri stic of a small bowel obstruction. 3. Moderate diverticulosis present. These findings were called to Dr. Aldrich at 1839 hours. Electronically signed by: Ramin Atwood MD 12/24/2017 6:49 PM EDT
[2017-12-24] MEDS ORDERED: Bupivacaine/Epinephrine Inj 0.25% 50 ML Vial ONE (19:03)
--- NOTE | 2017-12-24 19:28 | P.CONGS ---
[facility] Consult Note Consult date: 12/24/17 Reason for consult: abdominal pain Narrative: CONSULTATION NOTE FOR SURGICAL ATTENDING, DR. ROYA ALDRICH 87-year-old female who was admitted to the hospital with some incontinence crampy abdominal pain diarrhea. Her pain progressed she had a KUB that showed questionable small bowel obstruction a second CT scan was done which showed free air. Surgery was consulted She says she is having for the last few days she has been hospitalized for 4 days and the pain just back progressively worse. She does not recall ever having ulcers never had any surgery. The pain is unrelenting in the midepigastric right upper quadrant area Review of Systems Constitutional: Reports anorexia, Reports lack of energy, Reports malaise, Reports weakness Gastrointestinal: Reports abdominal pain, Reports cramping, Reports feeling full early, Reports incontinent of stools, Reports loose stools, Reports other ( History of reflux) PMFSH - History History Provided By: Patient, Family Member, Deputy Director / EMT - Medical History Medical History: Medical History (Last Reviewed 12/24/17 @ 19:22 by Roya Aldrich MD) GERD (gastroesophageal reflux disease) High cholesterol Hypertension - Surgical History Surgical History: Surgical History (Last Reviewed 12/24/17 @ 19:22 by Roya Aldrich MD) History of hip replacement - Family History Family History: Family History (Last Reviewed 12/24/17 @ 19:22 by Roya Aldrich MD) Other Family history non-contributory - Tobacco History Second Hand Smoke Exposure: No Smoking Status: Never smoker Tobacco Type: Cigarettes - Alcohol History How Often Do You Have a Drink Containing Alcohol: 4 or more times a week (son endorses 2-3 drinks of vodka mixes a day) - Substance Use History Substance History: No History of Abuse - Travel History Recent Travel in the [facility] Within the Last 8 Weeks: No Recent Travel Out of the Country Within the Last 8 Weeks: No - Immunization History Tetanus Immunization: Unsure Medications and Allergies Active Medications: Active Medications Acetaminophen (Tylenol) 650 mg PO Q4H PRN PRN Reason: Temp > 100.4qand pain 1 to 10 Last Admin: 12/24/17 09:45 Dose: 650 mg Atenolol (Tenormin) 50 mg PO BID [facility] Last Admin: 12/24/17 09:36 Dose: 50 mg Atorvastatin Calcium (Lipitor) 10 mg PO DAILY [facility] Last Admin: 12/24/17 09:36 Dose: 10 mg Cholestyramine Resin (Questran 4 Gm Pkt) 4 gm PO BID [facility] Last Admin: 12/24/17 09:36 Dose: 4 gm Ciprofloxacin HCl (Cipro) 500 mg PO Q12HR [facility] Last Admin: 12/24/17 09:36 Dose: 500 mg Dextrose (D50w Vial) 50 ml IV.PUSH UNSCH PRN PRN Reason: PER HYPOGLYCEMIA PROTOCOL Dronabinol (Marinol) 2.5 mg PO BID@1100,1600 [facility] Last Admin: 12/24/17 15:07 Dose: 2.5 mg Famotidine (Pepcid) 10 mg PO BID [facility] Last Admin: 12/24/17 09:35 Dose: 10 mg Folic Acid (Folic Acid) 1 mg PO DAILY [facility] Last Admin: 12/24/17 09:36 Dose: 1 mg Glucagon (Glucagon Inj) 1 mg OTHER PRN PRN PRN Reason: for Hypoglycemia Protocol Heparin Sodium (Porcine) (Heparin Inj) 5,000 units SQ Q12H [facility] Last Admin: 12/24/17 17:23 Dose: 5,000 units Sodium Chloride (Ns Inj) 500 mls @ 0 mls/hr IV.SIG BOLUS [facility] Last Infusion: 12/16/17 07:27 Dose: Infused Potassium Chloride/Dextrose/Sod Cl (D5w/1/2ns + Kcl 20 Meq Inj) 1,000 mls @ 84 mls/hr IV.CONT .[id number] [facility] Last Admin: 12/24/17 11:41 Dose: Not Given Lactobacillus Acidophilus (Lactinex) 1 tab PO TID [facility] Last Admin: 12/24/17 17:23 Dose: 1 tab Loperamide HCl (Imodium) 2 mg PO Q6H PRN PRN Reason: DIARRHEA Last Admin: 12/20/17 05:52 Dose: 2 mg Losartan Potassium (Cozaar) 25 mg PO DAILY [facility] Last Admin: 12/24/17 09:36 Dose: 25 mg Magnesium Oxide (Mag-Ox) 400 mg PO BID [facility] Last Admin: 12/24/17 09:36 Dose: 400 mg Metronidazole (Flagyl) 500 mg PO Q8HR [facility] Last Admin: 12/24/17 13:44 Dose: 500 mg Miscellaneous (Pill Splitter) 1 each OTHER UNSCH PRN PRN Reason: SEE LABEL COMMENTS Multi-Ingredient Mouthwash/Gargle (Magic Mouthwash Adult Liq) 10 ml SWISH-SWAL QID [facility] Last Admin: 12/24/17 17:24 Dose: 10 ml Prochlorperazine Edisylate (Compazine Inj) 5 mg IV.PUSH Q6H PRN PRN Reason: NAUSEA OR VOMITING Last Admin: 12/23/17 23:49 Dose: 5 mg Thiamine HCl (Vitamin B1) 100 mg PO BID [facility] Last Admin: 12/24/17 09:36 Dose: 100 mg Triamterene/HCTZ (Dyazide 37.5/25 Mg) 1 cap PO DAILY [facility] Last Admin: 12/20/17 08:45 Dose: 1 cap Allergies Allergy/AdvReac Type Severity Reaction Status Date / Time aspirin Allergy Severe Chest Pain Verified 12/16/17 01:27 nifedipine Allergy Severe Chest Pain Verified 12/16/17 01:27 codeine AdvReac Severe Palpitation Verified 12/16/17 01:27 s MUSSELS Allergy Severe Chest Pain Uncoded 12/16/17 01:27 Home Medications Medication Instructions Recorded Confirmed Type atenolol 50 mg PO BID 12/12/17 12/16/17 History atorvastatin 10 mg PO DAILY 12/12/17 12/16/17 History ranitidine HCl 150 mg PO BID 12/12/17 12/16/17 History triamterene-hydrochlorothiazid 1 cap PO DAILY 12/12/17 12/16/17 History Exam Vital signs: Vital Signs 12/23/17 20:00 12/24/17 00:00 12/24/17 00:05 Temperature 97.9 F 97.4 F L Pulse Rate 89 84 82 Respiratory Rate 22 22 Blood Pressure 108/56 L 107/58 L Pulse Oximetry 96 99 12/24/17 04:00 12/24/17 08:00 12/24/17 12:00 Temperature 97.7 F 97.5 F L 97.9 F Pulse Rate 83 89 88 Respiratory Rate 22 18 18 Blood Pressure 107/51 L 124/57 L 102/57 L Pulse Oximetry 99 95 95 12/24/17 15:37 Temperature 97.6 F Pulse Rate 94 H Respiratory Rate 18 Blood Pressure 110/58 L Pulse Oximetry 91 L Intake & Output 12/24/17 12/24/17 12/25/17 06:59 18:59 06:59 Intake Total 120 / 120 720 / 720 Balance 120 / 120 720 / 720 Weight 68.3 kg Intake: Oral 120 / 120 720 / 720 Other: # Voids 4 # Incontinent Voids 3 # Bowel Movements 5 # Incontinent Bowel Movements 3 Narrative: Patient son at bedside Patient alert obvious mild distress points to the midepigastric right upper quadrant area where she has pain Neurologic she is alert oriented Neck is supple Chest fairly clear Heart regular rate tachycardic Abdomen exquisitely tender right upper quadrant midepigastric region no surgical scars are appreciated Extremities moves all extremities however pain in the abdomen Skin she looks a little dry Results - Labs 12/29/17 05:05 12/29/17 05:05 Abnormal lab results 12/23/17 12/24/17 Range/Units 19:56 05:14 Chloride 108 H (98-107) meq/L Estimated GFR 65 L (>89) mL/min POC Glucose 111 H (68-110) mg/dl Random Glucose 137 H (74-106) mg/dL Calcium 6.9 L* (8.5-10.1) mg/dL Prot Corrected Calcium 7.9 L (8.5-10.1) mg/dL Total Protein 5.1 L D (6.4-8.2) g/dL Diabetes panel 12/24/17 Range/Units 05:14 Sodium 139 (136-145) meq/L Potassium 3.9 (3.5-5.1) meq/L Chloride 108 H (98-107) meq/L Carbon Dioxide 22.5 (21.0-32.0) meq/L BUN 9 (7-18) mg/dL Creatinine 0.98 (0.50-1.00) mg/dL Calcium 6.9 L* (8.5-10.1) mg/dL Total Protein 5.1 L D (6.4-8.2) g/dL Calcium panel 12/24/17 Range/Units 05:14 Calcium 6.9 L* (8.5-10.1) mg/dL Pituitary panel 12/24/17 Range/Units 05:14 Sodium 139 (136-145) meq/L Potassium 3.9 (3.5-5.1) meq/L Chloride 108 H (98-107) meq/L Carbon Dioxide 22.5 (21.0-32.0) meq/L BUN 9 (7-18) mg/dL Creatinine 0.98 (0.50-1.00) mg/dL Calcium 6.9 L* (8.5-10.1) mg/dL Adrenal panel 12/24/17 Range/Units 05:14 Sodium 139 (136-145) meq/L Potassium 3.9 (3.5-5.1) meq/L Chloride 108 H (98-107) meq/L Carbon Dioxide 22.5 (21.0-32.0) meq/L BUN 9 (7-18) mg/dL Creatinine 0.98 (0.50-1.00) mg/dL Calcium 6.9 L* (8.5-10.1) mg/dL Total Protein 5.1 L D (6.4-8.2) g/dL All other labs normal. - Imaging Abdominal x-ray: report reviewed, image reviewed CT scan - abdomen: report reviewed, image reviewed, other (Reviewed CT scan with sharing the radiologist) CT scan - pelvis: report reviewed, image reviewed Assessment and Plan - Assessment (1) Acute abdomen Code(s): R10.0 - Acute abdomen Status: Acute (2) Free intraperitoneal air Code(s): K66.8 - Other specified disorders of peritoneum Status: Acute (3) Enteritis Code(s): K52.9 - Noninfective gastroenteritis and colitis, unspecified Status : Acute (4) History of esophageal reflux Code(s): Z87.19 - Personal history of other diseases of the digestive system Status: Chronic (5) Elevated lactic acid level Code(s): R79.89 - Other specified abnormal findings of blood chemistry Status : Acute (6) Dehydration Code(s): E86.0 - Dehydration Status: Acute (7) Sepsis Code(s): A41.9 - Sepsis, unspecified organism Status: Acute Qualifiers: Sepsis type: sepsis due to unspecified organism Qualified Code(s): A41.9 - Sepsis, unspecified organism (8) Hypomagnesemia Code(s): E83.42 - Hypomagnesemia Status: Acute (9) Hypertension Code(s): I10 - Essential (primary) hypertension Status: Chronic Qualifiers: Hypertension type: essential hypertension Qualified Code(s): I10 - Essential (primary) hypertension - Plan 87-year-old pleasant lady who is fairly healthy was in the hospital for malaise and diarrhea repeat CT scan shows free air I suspect from a perforated ulcer. Discussed with the patient and her son who was at her bedside Reviewed the x-rays with Dr. Mohr the radiologist Plan diagnostic laparoscopy with repair of perforated ulcer if seen or possible bowel resection or colostomy This was discussed with the son and the patient I have already notified the operating room for urgent surgery She will be in the intensive care unit or afterwards, I have already made arrangements with the skating rink manager Dr. Serna to participate in her care postoperatively - Attending Attestation CONSULTATION NOTE FOR SURGICAL ATTENDING, DR. ROYA ALDRICH I agree with above assessment and plan. The exam, history, and the medical decision-making described in the above note were completed with the assistance of the mid-level provider. I reviewed and agree with the findings presented. I attest that I had a [id number] encounter with the patient on the same day, and personally performed and documented my assessment and findings in the medical record. The following services were provided during this hospital visit: Chart data review, vital sign assessments/reviewing monitor data Review of consultations notes if present. Medication orders/review and/or management Ordering and/or reviewing lab tests Ordering and/or interpreting/reviewing x-rays and/or diagnostic studies Care of the patient and discussion of the patient with the care team Documentation time To help prompt me to consider important information that might be impacting today's encounter and assessment, Information from prior notes written by myself or my colleagues may have been "brought forward/copy and pasted" into today's note.
[2017-12-24 21:12] LABS: Baso % (Auto) 0.4 % (0.0-2.0); Eos % (Auto) 0.3 % (0.0-4.0); Lymph # (Auto) 0.8 th/mm3 (1.0-4.8); Lymph % (Auto) 9.8 % (9.0-44.0); Mean Corpuscular HGB Conc 32.5 % (32.0-36.0); Mean Corpuscular Hemoglobin 31.6 pg (27.0-34.0); Mean Corpuscular Volume 97.2 fL (80.0-100.0); Mean Platelet Volume 9.4 fL (7.0-11.0); Mono # (Auto) 0.5 th/mm3 (0.0-0.9); Mono % (Auto) 6.2 % (0.0-8.0); Neut # (Auto) 6.5 th/mm3 (1.8-7.7); Neut % (Auto) 83.3 % (16.0-70.0); Platelet Count 271 th/mm3 (150-450); Red Blood Count 2.01 mil/mm3 (4.00-5.30); Red Cell Distribution Width 15.5 % (11.6-17.2); White Blood Count 7.8 th/mm3 (4.0-11.0)
--- NOTE | 2017-12-24 21:14 | P.CONCC ---
History of Present Illness Service: Critical Care Medicine Consult date: 12/24/17 Requesting Physician: Owen Aldrich Reason for Consult: management of cardiorespiratory disease Primary Care Provider: UNKNOWN Chief Complaint: abdominal pain, weakness, diarrhea History of Present Illness: 87yF originally admitted for abdominal pain and now found to have perforated hollow viscus with intra-abdominal free air. taken to OR emergently by Dr. Aldrich for exploratory laparotomy where they found small bowel perforation. small bowel was resected and due to significantly poor patient tissue and gross contamination of the field, patient was left in discontinuity with an open abdomen. arrives to the ICU intubated, critically ill, on vasopressors, in shock. sedated. no additional information is available from the patient; ROS unobtainable. Review of Systems unobtainable due to endotracheal tube PMFSH - History History Provided By: Medical Record - Medical / Surgical Hx Neg / Unobtainable Medical Problems Denied: Unable to Obtain Surgical History: Unable to Obtain - Medical History Medical History: Medical History (Last Reviewed 12/24/17 @ 23:21 by Robert Greenwood MD) GERD (gastroesophageal reflux disease) High cholesterol Hypertension - Surgical History Surgical History: Surgical History (Last Reviewed 12/24/17 @ 23:21 by Robert Greenwood MD) History of hip replacement - Family History Family History: Family History (Last Reviewed 12/24/17 @ 23:21 by Robert Greenwood MD) Other Family history non-contributory - Social History I have reviewed the patient's Social History: Yes - Tobacco History Second Hand Smoke Exposure: No Smoking Status: Never smoker Tobacco Type: Cigarettes - Alcohol History How Often Do You Have a Drink Containing Alcohol: 4 or more times a week (son endorses 2-3 drinks of vodka mixes a day) - Substance Use History Substance History: No History of Abuse - Travel History Recent Travel in the [place] Within the Last 8 Weeks: No Recent Travel Out of the Country Within the Last 8 Weeks: No - Immunization History Tetanus Immunization: Unsure Medications and Allergies Active Medications: Active Medications Acetaminophen (Tylenol) 650 mg PO Q4H PRN PRN Reason: Temp > 100.4qand pain 1 to 10 Last Admin: 12/24/17 09:45 Dose: 650 mg Atenolol (Tenormin) 50 mg PO BID JUANITA Last Admin: 09/12/18 09:36 Dose: 50 mg Atorvastatin Calcium (Lipitor) 10 mg PO DAILY [facility] Last Admin: 12/24/17 09:36 Dose: 10 mg Cholestyramine Resin (Questran 4 Gm Pkt) 4 gm PO BID [facility] Last Admin: 12/24/17 09:36 Dose: 4 gm Ciprofloxacin HCl (Cipro) 500 mg PO Q12HR [facility] Last Admin: 12/24/17 09:36 Dose: 500 mg Dextrose (D50w Vial) 50 ml IV.PUSH UNSCH PRN PRN Reason: PER HYPOGLYCEMIA PROTOCOL Dronabinol (Marinol) 2.5 mg PO BID@1100,1600 [facility] Last Admin: 12/24/17 15:07 Dose: 2.5 mg Famotidine (Pepcid) 10 mg PO BID [facility] Last Admin: 12/24/17 09:35 Dose: 10 mg Folic Acid (Folic Acid) 1 mg PO DAILY [facility] Last Admin: 12/24/17 09:36 Dose: 1 mg Glucagon (Glucagon Inj) 1 mg OTHER PRN PRN PRN Reason: for Hypoglycemia Protocol Heparin Sodium (Porcine) (Heparin Inj) 5,000 units SQ Q12H [facility] Last Admin: 12/24/17 17:23 Dose: 5,000 units Sodium Chloride (Ns Inj) 500 mls @ 0 mls/hr IV.SIG BOLUS [facility] Last Infusion: 12/16/17 07:27 Dose: Infused Potassium Chloride/Dextrose/Sod Cl (D5w/1/2ns + Kcl 20 Meq Inj) 1,000 mls @ 84 mls/hr IV.CONT .[id number] [facility] Last Admin: 12/24/17 11:41 Dose: Not Given Lactobacillus Acidophilus (Lactinex) 1 tab PO TID [facility] Last Admin: 12/24/17 17:23 Dose: 1 tab Loperamide HCl (Imodium) 2 mg PO Q6H PRN PRN Reason: DIARRHEA Last Admin: 12/20/17 05:52 Dose: 2 mg Losartan Potassium (Cozaar) 25 mg PO DAILY [facility] Last Admin: 12/24/17 09:36 Dose: 25 mg Magnesium Oxide (Mag-Ox) 400 mg PO BID [facility] Last Admin: 12/24/17 09:36 Dose: 400 mg Metronidazole (Flagyl) 500 mg PO Q8HR [facility] Last Admin: 12/24/17 13:44 Dose: 500 mg Miscellaneous (Pill Splitter) 1 each OTHER UNSCH PRN PRN Reason: SEE LABEL COMMENTS Multi-Ingredient Mouthwash/Gargle (Magic Mouthwash Adult Liq) 10 ml SWISH-SWAL QID [facility] Last Admin: 12/24/17 17:24 Dose: 10 ml Prochlorperazine Edisylate (Compazine Inj) 5 mg IV.PUSH Q6H PRN PRN Reason: NAUSEA OR VOMITING Last Admin: 12/23/17 23:49 Dose: 5 mg Thiamine HCl (Vitamin B1) 100 mg PO BID [facility] Last Admin: 12/24/17 09:36 Dose: 100 mg Triamterene/HCTZ (Dyazide 37.5/25 Mg) 1 cap PO DAILY [facility] Last Admin: 12/20/17 08:45 Dose: 1 cap Allergies Allergy/AdvReac Type Severity Reaction Status Date / Time aspirin Allergy Severe Chest Pain Verified 12/16/17 01:27 nifedipine Allergy Severe Chest Pain Verified 12/16/17 01:27 codeine AdvReac Severe Palpitation Verified 12/16/17 01:27 s MUSSELS Allergy Severe Chest Pain Uncoded 12/16/17 01:27 Home Medications Medication Instructions Recorded Confirmed Type atenolol 50 mg PO BID 12/12/17 12/16/17 History atorvastatin 10 mg PO DAILY 12/12/17 12/16/17 History ranitidine HCl 150 mg PO BID 12/12/17 12/16/17 History triamterene-hydrochlorothiazid 1 cap PO DAILY 12/12/17 12/16/17 History Physical Exam Vital signs: Vital Signs 12/24/17 00:00 12/24/17 00:05 12/24/17 04:00 Temperature 36.3 C L 36.5 C Pulse Rate 84 82 83 Respiratory Rate 22 22 Blood Pressure 107/58 L 107/51 L Pulse Oximetry 99 99 12/24/17 08:00 12/24/17 12:00 12/24/17 15:37 Temperature 36.4 C L 36.6 C 36.4 C Pulse Rate 89 88 94 H Respiratory Rate 18 18 18 Blood Pressure 124/57 L 102/57 L 110/58 L Pulse Oximetry 95 95 91 L 12/24/17 19:45 Temperature 36.6 C Pulse Rate 98 H Respiratory Rate 18 Blood Pressure 120/67 Pulse Oximetry 97 Intake & Output 12/24/17 12/24/17 12/25/17 06:59 18:59 06:59 Intake Total 120 / 120 720 / 720 Balance 120 / 120 720 / 720 Weight 68.3 kg Intake: Oral 120 / 120 720 / 720 Other: # Voids 4 # Incontinent Voids 3 # Bowel Movements 5 # Incontinent Bowel Movements 3 Narrative: GENERAL: frail, elderly female, intubated, sedated, critically ill, lying in bed. SKIN: very dry, cracked. marginal cap refill. HEENT: nc. at. perrl. mucous membranes dry. CARDIOVASCULAR: normal rate, regular rhythm. sinus. arrived on 60 mcg/min phenylephrine. RESPIRATORY: prvc mode of ventilation. equal chest rise. peep 5. fio2 50%. GASTROINTESTINAL: soft. open abdomen with vac dressing in place. minimal amount of serosanguinous output. no guarding. MUSCULOSKELETAL: No obvious deformities. No clubbing or cyanosis. No edema. NEUROLOGICAL: intubated, sedated. RASS -3. deeply sedated to prevent evisceration. withdraws to pain x 4. - Urinary Catheter Management Indwelling Urethral Catheter Cath placed during this visit: yes Reason for continuing: Hourly intake/output Insertion date: 12/24/17 Insertion time: 20:15 Septic Shock Reassessment Septic shock perfusion: reassessment completed Assessment and Plan - Assessment and Plan Plan: Assessment: 87yF with perforated small bowel now POD 0 s/p emergent exploratory laparotomy, small bowel resection, left in discontinuity with open abdomen. iv antibiotics, vasopressors, iv fluid resuscitation. Critically ill. keep deeply sedated while abdomen open. Plan by systems: Neurologic: Acute metabolic encephalopathy Propofol and fentanyl for goal RASS -3 while abdomen is open Respiratory: Acute hypoxic and hypercarbic respiratory failure Vent bundle Head of bed elevated Nebs Wean FiO2 for goal SPO2 greater than 90% No weaning of mechanical ventilation until abdomen is closed ABG in the morning Cardiovascular: Septic shock Levophed for goal map greater than 65 IV fluid resuscitation which is ongoing trend lactates Renal: Acute kidney injury Likely secondary to septic shock and volume depletion in the setting of small bowel perforation Continue Hankins Frequent urine checks Daily BMP Maintenance fluid resuscitation -- Strict I/Os FEN/GI: Small bowel perforation Intra-abdominal sepsis Severe acute protein calorie malnutrition Hypocalcemia Hypomagnesemia Strict n.p.o. while in discontinuity ICU electrolyte protocol Antibiotics as described below Dr. Aldrich following Plan to go back to the OR on Friday Maintenance fluids D5 LR at 125 cc an hour Heme/ID: Anemia secondary to acute blood loss Septic shock Intra-abdominal sepsis Status post 1 unit PRBCs in the OR. Recheck CBC Daily CBC DC Cipro and Flagyl p.o. Zosyn IV Follow-up cultures Endocrine: Hyperglycemia of critical illness -- SSI Prophylaxis: GI Prophylaxis PPI IV DVT Prophylaxis -- SCDs Subcu heparin Lines: 12/24 radial arterial line 12/24 left subclavian triple-lumen catheter 12/24 Hankins Dispo: Admit ICU. Very critically ill. This patient remains critically ill with one or more organ systems which are or may become a threat to life. I have spent in excess of 54 minutes discontinuously in the care and management of this patient. This time is exclusive of procedures, and includes, but is not limited to, evaluation of the patient, review of the medical record, discussions with family, consultants, nursing staff, or respiratory therapy, and documentation in the medical record.
[2017-12-24 21:17] LABS: ABG Base Excess -6.9 mmol/L (-2-2); ABG PCO2 37 mmHg (38-42); ABG PO2 175 mmHG (61-120)
[2017-12-24] MEDS ORDERED: Sodium Bicarbonate 8.4% Inj 50 MEQ/50 ML Syringe ONE (21:18)
[2017-12-24 21:19] LABS: Hematocrit 19.5 % (35.0-46.0); Hemoglobin 6.3 gm/dL (11.6-15.3)
[2017-12-24] MEDS ORDERED: Sodium Phosphate Inj 30 MMOL in Sodium Chlor 0.9% Inj 250 ML IV.SIG PRN (21:21)
[2017-12-24] MEDS ORDERED: Potassium Chlor 20 mEq Premix 20 MEQ/100 ML PIGGYBACK IV.SIG PRN (21:21)
[2017-12-24] MEDS ORDERED: Magnesium Oxide 400 MG Tablet PO PRN (21:21)
[2017-12-24] MEDS ORDERED: Potassium Phosphate 500 MG Soluble Tablet PO PRN ×2 (21:21)
[2017-12-24] MEDS ORDERED: Potassium Chloride 25 MEQ Effervescent Tablet PO PRN (21:21)
[2017-12-24] MEDS ORDERED: Magnesium Sulfate Inj 4 GM in Sodium Chlor 0.9% Inj 92 ML IV.SIG PRN (21:21)
[2017-12-24] MEDS ORDERED: Phenylephrine Inj 40 MG in Dextrose 5% in Water Inj 496 ML IV.CONT PRN ×2 (21:21)
[2017-12-24] MEDS ORDERED: Dextrose 50% in Water 50 ML Vial IV.PUSH PRN (21:23)
[2017-12-24] MEDS ORDERED: Calcium Chloride Inj 1 GM/10 ML Syringe ONE (21:23)
[2017-12-24] MEDS ORDERED: Propofol Inj 500 MG/50 ML Vial ONE (21:25)
[2017-12-24 21:44] LABS: Platelet Estimate Normal (Normal); Platelet Morphology Normal (Normal); RBC Morphology Normal (Normal)
[2017-12-24] MEDS ORDERED: fentaNYL Citrate Inj 100 MCG/2 ML Ampul ONE (22:04)
--- NOTE | 2017-12-24 23:10 | P.PCN ---
Date of procedure: 12/24/17 Pre-op diagnosis: Septic Shock Post-op diagnosis: same Procedure: Central Line Procedure Note Left subclavian 7 British 20 cm triple-lumen catheter Diagnosis: Intra-abdominal septic shock Indications: Need for highly potent vasoactive substances Consent: Emergent Anesthesia: Propofol IV, 1% lidocaine locally Description of the Procedure: The patient was placed in the supine, mild- Trendelenburg position. The area was prepped and draped sterilely. A 19g needle was inserted under negative pressure aspiration and dark venous blood was obtained. A guidewire was inserted easily without resistance. A small incision was made using a #11 blade. Using a modified Seldinger technique, the dilator and 7 British, 20 cm catheter were advanced over the guidewire without resistance. All ports were aspirated and flushed, and had brisk blood return. The line was secured at the skin using a non-suture StatLock device. A Biopatch and Transparent sterile dressing were applied. There were no immediate complications noted. There was minimal EBL. The patient tolerated the procedure well. Ultrasound guidance was not used for this procedure A Chest x-ray has been ordered. I personally performed the procedure.
[2017-12-24] MEDS: Propofol 1000 mg/100 ml Inj 1,000 MG/100 ML BOTTLE IV.CONT PRN (23:16)
[2017-12-24] MEDS: fentaNYL 10 mcg/mL Premix Drip 2,500 MCG/250 ML BAG IV.SIG PRN (23:21)
[2017-12-24] MEDS: Dextrose 5%/Lactated Ringer's 1,000 ML IV.CONT SCH (23:31)
[2017-12-24] MEDS: Oral Hygiene Kit OROPHARYNG SCH (23:32)
[2017-12-24 23:40] LABS: ABG Base Excess -2.3 mmol/L (-2-2); ABG PCO2 30 mmHg (38-42); ABG PO2 100 mmHg (61-120)
[2017-12-24] MEDS: Piperacil/Tazo 4.5 GM Premix 4.5 GM/100 ML BAG IV.SIG SCH (23:40)
--- NOTE | 2017-12-24 23:56 | XR ---
EXAM DATE: 12/24/2017 11:36 PM EDT AGE/SEX: 87 years / Female INDICATIONS: Left subclavian central line placement. CLINICAL DATA: This is the patient's subsequent encounter. Patient reports that signs and symptoms h ave been present for 1 day and indicates a pain score of Nonresponsive. MEDICAL/SURGICAL HISTORY: Gastroesophageal reflux disease. Hypertension. . Left hip arthroplas ty. COMPARISON: [facility], CHEST SINGLE AP, 01/21/2016. . FINDINGS: Endotracheal tube in good position. NG enters stomach. Left central line in superior vena cava. Bilat eral mostly basilar airspace disease and pleural effusions. No pneumothorax. CONCLUSION: Left central line tip in superior vena cava without pneumothorax. Bilateral mostly basilar airspace d isease and small to moderate-sized pleural effusions present. Electronically signed by: Owen Stearns MD 12/24/2017 11:54 PM EDT
[2017-12-25] MEDS ORDERED: Piperacil/Tazo 3.375 GM Premix 50 ML IV.SIG SCH
[2017-12-25] MEDS: Insulin NovoLOG Aspart Correctional Sugar Inj SQ SCH ×4 (00:35→18:06)
--- NOTE | 2017-12-25 02:01 | MP ---
cc: Owen Aldrich MD, Joseph D MD DATE OF OPERATION: 12/24/2017 PREOPERATIVE DIAGNOSIS: Free air. POSTOPERATIVE DIAGNOSES: 1. Free air with perforation of distal ileum with partial necrosis of distal ileum. 2. Abnormal appearing appendix. ANESTHESIA: General. SURGEON: Owen Aldrich MD PROCEDURE: 1. Diagnostic laparoscopy. 2. Exploratory laparotomy. 3. Resection of nonviable small bowel, distal ileum, approximately 20 cm. 4. Appendectomy. 5. Placement of a temporary abdominal closure device. INDICATIONS FOR PROCEDURE: This is an 87-year-old female who has been in the hospital since 12/16/2017. She has had some abdominal discomfort and profuse diarrhea. Surgery was consulted after a CT scan showed free air. She was urgently brought to the operating room. Intraoperatively, it was found that she had free fluids. Originally, I thought she had a perforated ulcer, but the small bowel was massively dilated, and it was stuck to the anterior abdominal wall. Some of it looked nonviable by the videoscopic instrument. For this reason, we converted to open. It was found that the distal small bowel was very thin, paper thin, and she had a couple areas of leaking necrosis with enteric contents. The bowel was mobilized and resected. DESCRIPTION OF PROCEDURE: The patient was taken to the operating room and placed in prone position after anesthesia. Her abdomen was prepped with Betadine. We made an incision at the umbilicus. A Veress needle was inserted. A saline bolus test was performed. The abdomen was insufflated to 15 mmHg. We placed a second working port in the subxiphoid area. The bowel was dilated. The stomach is dilated. Anesthesia placed an NG tube which decompressed the stomach. The gallbladder was floppy, did not look inflamed. I did not see a duodenal ulcer. There was no fluid around the duodenum. We checked down in the pelvis. The bowel was adhesed to the anterior abdominal wall. She had no history of previous surgery. I could not visualize adequately the pathology, but some of the bowel looks nonviable. For this reason, it was converted to open. The port sites were then connected in the midline. The abdomen was entered. On just gentle manipulation of the distal ileum that was tethered to the anterior abdominal wall, it simply fell apart. It was somewhat vascularly compromised, and the tissue was again very thin. No edema. A segment of about 15-20 cm of the small bowel was simply resected by using the GI stapling device to prevent further spillage. The Harmonic scalpel was used to take down the mesentery. There was a segment of small bowel in the distal ileum, about 8 cm at the ileocecal valve, that was left and looked viable. Ascending colon looked viable. The appendix was somewhat abnormal. For this reason, the mesentery was taken down with the Harmonic scalpel. PDS Endo ties were placed around the base of the appendix and the appendix was amputated off. The gallbladder was somewhat floppy but no stones or inflammation. Ascending colon, transverse colon, and descending colon appeared normal. We ran the small bowel from the ligament of Treitz to distally where things looked viable, but they were dilated up fairly much. The NG tube was placed in past the pylorus to help evacuate the small bowel. Because of the complexity of this and the patient's clinical condition, I felt best that we simply just rinse this in the abdomen, which was done, and then we placed the ABThera temporary abdominal closure device on the patient to be resuscitated. I discussed with Dr. Serna, the critical care executive secretary social welfare. He will see the patient in the ICU. After the ABThera was done, abdominal binder was placed. She was transferred to the critical care unit intubated. Plan to return to the operating room on Friday if she is medically stable. Owen Aldrich MD JVERA/lilibeth , 11:15 PM , 11:26 PM
[2017-12-25] MEDS: Oral Hygiene Kit OROPHARYNG SCH ×4 (03:48→23:31)
[2017-12-25] MEDS: Heparin - SQ 10,000 UNITS/ML Vial SQ SCH ×3 (04:20→17:18)
[2017-12-25] MEDS: Piperacil/Tazo 4.5 GM Premix 4.5 GM/100 ML BAG IV.SIG SCH ×4 (05:28→23:28)
[2017-12-25 05:38] LABS: Hematocrit 31.6 % (35.0-46.0); Hemoglobin 10.6 gm/dL (11.6-15.3); Mean Corpuscular HGB Conc 33.7 % (32.0-36.0); Mean Corpuscular Hemoglobin 31.1 pg (27.0-34.0); Mean Corpuscular Volume 92.3 fL (80.0-100.0); Mean Platelet Volume 8.9 fL (7.0-11.0); Platelet Count 244 th/mm3 (150-450); Red Blood Count 3.42 mil/mm3 (4.00-5.30); Red Cell Distribution Width 16.4 % (11.6-17.2); White Blood Count 10.9 th/mm3 (4.0-11.0)
[2017-12-25 05:54] LABS: ABG Base Excess -2.7 mmol/L (-2-2); ABG PCO2 27 mmHg (38-42); ABG PO2 145 mmHg (61-120)
[2017-12-25 06:09] LABS: Calcium 7.4 mg/dL (8.5-10.1); Carbon Dioxide 21.6 meq/L (21.0-32.0); Magnesium 1.6 mg/dL (1.5-2.5); Phosphorus 1.4 mg/dL (2.5-4.9); Potassium 3.6 meq/L (3.5-5.1); T4 (Thyroxine) 7.7 mcg/dL (4.8-13.9)
[2017-12-25 06:16] LABS: Free T4 (Free Thyroxine) 1.19 ng/dL (0.76-1.46); Thyroid Stimulating Hormone 5.37 uIU/mL (0.358-3.740)
[2017-12-25 06:28] LABS: Total Protein 4.6 g/dL (6.4-8.2)
[2017-12-25] MEDS: Chlorhexidine 0.12% Oral Kit 15 ML UDC OROPHARYNG SCH ×2 (08:24→21:01)
[2017-12-25] MEDS: Dextrose 5%/Lactated Ringer's 1,000 ML IV.CONT SCH ×3 (08:24→23:30)
--- NOTE | 2017-12-25 10:41 | P.CONPAL ---
Consult Service: Palliative Care Requesting Physician: Jovany Pollard Reason for Consult: a. To assist with evaluation and management of symptoms including: pain; dyspnea; encephalopathy b. To assist medical decision maker(s) with: better understanding of current medical conditions; weighing benefits/burdens of medical treatment options; making medical treatment decisions. Primary Care Provider: UNKNOWN History of Present Illness History of Present Illness: Ms. Johnson is an 87 y/o female with a known history of GERD, hyperlipidemia; hypertension who was brought to the ED via EMS on 12/16/17 because of severe weakness and unrelenting diarrhea. The patient has just been hospitalized at this facility from 12/12/17 through 12/15/17 for what was felt to be diverticulitis and colitis . these symptoms had begun about 2-3 week ago. At time of her recent discharge she was reportedly tolerating PO nutrition and tolerating oral antibiotics. She was strong enough when she got home to ambulate with some assistance from car to house. The night of discharge she developed massive diarrhea with profound weakness. She also complained of left abdominal pain/distension with most pain being on the left side. She denied fever/chills/sweats/chest pain/sob. She reported having a poor appetite. In the ED on 12/16/17 initial VS shoed T 98.7; HR 99; RR 16' BP 185/85; 02 sat 97% Initial exam by the ED provider showed: patient in mild distress; ABdomen non- tender and non-distended; patient awake and alertsda Initial diagnostic testing noted the following: == WBC 14.2; Hg 8.8; platelets normal == Cje, profile Na 148; Cl 114; CO2 20.5; Corrected CA++ 8.1; Magnesium 1.4 ; Alb 1.8 The patient was admitted to help with management of abdominal pain, probable colitis/diarrhea, dehydration, possible sepsis. Fluid resuscitation was given. IV antibiotics were started. GI was consulted. The patient's diarrhea continued as well as left sided abdominal discomfort. Appetite remained poor. She did feel stronger, however, and began to work with physical therapy. Testing for C diff was negative on 12/17. Questran was added for the diarrhea. Abdominal plain film was ordered on 12/24/17 for persistent distension and this imaging suggested a small bowel obstructive process. General surgery consult was placed. A CT of the abdomen/pelvis was requested which suggested free air. Patient was taken for emergency surgery. Exploratory laparotomy confirmed a perforation of distal ileum with partial necrosis of the that bowel segment. Non-viable bowel was resected and appendectomy was performed. Abdomen was left open with wound vac. Patient was transferred to the ICU where she has remained intubated and sedated and requiring pressor support. The surgeon plans to bring the patient back to the OR on 12/26/17 to perform the bowel repair or colostomy and close the wound. At time of my visit, patient is sedated -- she withdraws to noxious stimuli but does not awaken to voice or exam. Bedside nurse reports that over the course of the day the heart rate has fallen and her temperature has fallen. . Function/Cognitive Trajectory: Son reports that Ms. Johnson was remarkably vital for her age prior to the 2-3 weeks ago when the GI symptoms began. The patient normally lives independently with her sons visiting a couple of times per day. She walks with a walker but remains quite active. She frequently walks a 1/4 mile with her walker to the store. There has been no weight loss. She has remained cognitively sharp. There were no pre-hospitalization pain syndromes. She was in good spirits. ROS 12 point ROS attempted with son. Negative except for the following: * "Sinus congestion" attributed to seasonal allergies * Needing medication for "reflux" symptoms daily Family History * Patient mother from an accidental when patient was quite young. * Father's cause of unknown. * Patient had one sister who of ? type of cancer * No other known health problems in family. . Review of Systems All other systems reviewed negative except as stated in HPI PMFSH - History History Provided By: Family Member, Medical Record - Medical / Surgical Hx Neg / Unobtainable Medical Problems Denied: Unable to Obtain - Medical History Medical History: Medical History (Last Reviewed 12/24/17 @ 23:21 by Robert Greenwood MD) GERD (gastroesophageal reflux disease) High cholesterol Hypertension - Surgical History Surgical History: Surgical History (Last Reviewed 12/24/17 @ 23:21 by Robert Greenwood MD) History of hip replacement - Family History Family History: Family History (Last Reviewed 12/24/17 @ 23:21 by Robert Greenwood MD) Other Family history non-contributory - Tobacco History Second Hand Smoke Exposure: No Smoking Status: Never smoker Tobacco Type: Cigarettes - Alcohol History How Often Do You Have a Drink Containing Alcohol: 2 to 3 times a week (son endorses 2-3 drinks of vodka mixes a week) - Substance Use History Substance History: No History of Abuse - Travel History Recent Travel in the [place] Within the Last 8 Weeks: No Recent Travel Out of the Country Within the Last 8 Weeks: No - Immunization History Tetanus Immunization: Unsure Medications and Allergies Active Medications: Active Medications Atenolol (Tenormin) 50 mg PO BID [facility] Last Admin: 12/24/17 22:24 Dose: Not Given Atorvastatin Calcium (Lipitor) 10 mg PO DAILY [facility] Last Admin: 12/24/17 09:36 Dose: 10 mg Chlorhexidine Gluconate (Peridex 0.12% Oral Kit) 15 ml OROPHARYNG BID@0800, 2000 [facility] Last Admin: 12/25/17 08:24 Dose: 15 ml Dextrose (D50w Vial) 50 ml IV.PUSH UNSCH PRN PRN Reason: PER HYPOGLYCEMIA PROTOCOL Glucagon (Glucagon Inj) 1 mg OTHER PRN PRN PRN Reason: for Hypoglycemia Protocol Heparin Sodium (Porcine) (Heparin Inj) 5,000 units SQ Q12H [facility] Last Admin: 12/25/17 05:39 Dose: Not Given Fentanyl (Fentanyl 10 Mcg/Ml Premix Drip) 2,500 mcg in 250 mls @ 5 mls/hr IV.SIG TITRATE PRN; Protocol PRN Reason: Per Protocol Last Titration: 12/25/17 05:42 Dose: 100 mcg/hr, 10 mls/hr Magnesium Sulfate Inj 4 gm/ (Sodium Chloride) 100 mls @ 50 mls/hr IV.SIG UNSCH PRN PRN Reason: For Magnesium 0.9 - 1.1 mg/dL Magnesium Sulfate Inj 2 gm/ (Sodium Chloride) 100 mls @ 50 mls/hr IV.SIG UNSCH PRN PRN Reason: For Magnesium 1.2 - 1.6 mg/dL Norepinephrine Bitartrate (Levophed-Dextrose 4 Mg/250 Ml Drip) 4 mg in 250 mls @ 7.5 mls/hr IV.SIG TITRATE PRN; Protocol PRN Reason: Per Protocol Potassium Chloride (Kcl 40 Meq Premix Inj) 40 meq in 100 mls @ 25 mls/hr IV.SIG Q2H PRN PRN Reason: For Potassium 2.8 - 3.2 mEq/L Potassium Chloride (Kcl 20 Meq Premix Inj) 20 meq in 100 mls @ 50 mls/hr IV.SIG Q2H PRN PRN Reason: For Potassium 3.3 - 3.5 mEq/L Potassium Chloride (Kcl 40 Meq Premix Inj) 40 meq in 100 mls @ 25 mls/hr IV.SIG UNSCH PRN PRN Reason: For Potassium 3.3 - 3.5 mEq/L Potassium Chloride (Kcl 20 Meq Premix Inj) 20 meq in 100 mls @ 50 mls/hr IV.SIG Q2H PRN PRN Reason: For Potassium 2.8 - 3.2 mEq/L Potassium Phosphate 30 mmol/ (Sodium Chloride) 260 mls @ 42 mls/hr IV.SIG UNSCH PRN PRN Reason: SEE LABEL COMMENTS Propofol (Diprivan 1000 Mg/100 Ml Inj) 1,000 mg in 100 mls @ 2.049 mls/hr IV.CONT TITRATE PRN; Protocol PRN Reason: Per Protocol Last Titration: 12/24/17 23:41 Dose: 15 mcg/kg/min, 6.15 mls/hr Sodium Phosphate 30 mmol/ (Sodium Chloride) 260 mls @ 42 mls/hr IV.SIG UNSCH PRN PRN Reason: For Phosphorus < 2.5 mg/dL Dextrose/Lactated Ringer's (D5w/Lr Inj) 1,000 mls @ 125 mls/hr IV.CONT .Q8H [facility] Last Admin: 12/25/17 08:24 Dose: 125 mls/hr Piperacillin/Tazobactam/Dextrose (Zosyn 4.5 Gm Premix) 4.5 gm in 100 mls @ 200 mls/hr IV.SIG Q6H [facility] Last Infusion: 12/25/17 06:09 Dose: Infused Insulin Aspart (Novolog Insulin Correctional Sugar Inj) 0 unit SQ Q6HR [facility]; Protocol Last Admin: 12/25/17 05:37 Dose: Not Given Losartan Potassium (Cozaar) 25 mg PO DAILY [facility] Last Admin: 12/24/17 09:36 Dose: 25 mg Magnesium Oxide (Mag-Ox) 800 mg PO UNSCH PRN PRN Reason: For Magnesium 1.2 - 1.6 mg/dL Potassium Bicarb/Potassium Chloride (K-Lyte Cl Eff) 50 meq PO UNSCH PRN PRN Reason: For Potassium 3.3 - 3.5 mEq/L Potassium Phosphate (K-Phos Original) 2,000 mg PO Q4H PRN PRN Reason: Phosphorus Less Than 2.5 mg/dL Potassium Phosphate (K-Phos Original) 2,000 mg PO UNSCH PRN PRN Reason: SEE LABEL COMMENTS Terbutaline Sulfate (Brethine Inj) 1 mg SQ UNSCH PRN PRN Reason: For Extravasation Triamterene/HCTZ (Dyazide 37.5/25 Mg) 1 cap PO DAILY [facility] Last Admin: 12/20/17 08:45 Dose: 1 cap Allergies Allergy/AdvReac Type Severity Reaction Status Date / Time aspirin Allergy Severe Chest Pain Verified 12/16/17 01:27 nifedipine Allergy Severe Chest Pain Verified 12/16/17 01:27 codeine AdvReac Severe Palpitation Verified 12/16/17 01:27 s MUSSELS Allergy Severe Chest Pain Uncoded 12/16/17 01:27 Home Medications Medication Instructions Recorded Confirmed Type atenolol 50 mg PO BID 12/12/17 12/16/17 History atorvastatin 10 mg PO DAILY 12/12/17 12/16/17 History ranitidine HCl 150 mg PO BID 12/12/17 12/16/17 History triamterene-hydrochlorothiazid 1 cap PO DAILY 12/12/17 12/16/17 History Advance Directives Living Will: No Healthcare Surrogate: No Documented care wishes: No written documentation of health care goals/preferences . Today's verbally stated goals: Patient is currently unable to state health care goals/preferences. . Family/friends goals: Son believes patient's quality of life was one she would want to continue fighting for. However, if after her second surgery, doctors do not think she will be able to return to a meaningful quality of life, she would not want to be sustained on machines. . Ethical and Legal Issues: Patient is currently incapacitated to make her own healthcare decisions. Should her second surgery go well there is a chance she will recover and regain capacity for such decision-making. . Physical Exam Vital Signs: Vital Signs - 24 hr 12/24/17 12:00 12/24/17 15:37 12/24/17 19:45 Temperature 97.9 F 97.6 F 97.9 F Pulse Rate 88 94 H 98 H Respiratory Rate 18 18 Blood Pressure 102/57 L 110/58 L 120/67 Pulse Oximetry 95 91 L 97 12/24/17 21:51 12/24/17 22:11 12/24/17 23:51 Temperature Pulse Rate 124 H Respiratory Rate 16 16 16 Blood Pressure 168/66 H Pulse Oximetry 99 99 95 12/25/17 00:00 12/25/17 00:34 12/25/17 04:00 Temperature 97.5 F L Pulse Rate 69 87 Respiratory Rate 16 16 16 Blood Pressure 133/60 109/55 L Pulse Oximetry 12/25/17 04:09 12/25/17 08:00 12/25/17 08:10 Temperature 97.9 F Pulse Rate 82 Respiratory Rate 16 16 15 Blood Pressure 114/55 L Pulse Oximetry 99 98 97 I&O: Intake & Output 12/23/17 12/24/17 12/25/17 12/26/17 06:59 06:59 06:59 06:59 Intake Total 2720 / 2720 1460 / 1460 5720 / 5720 950 / 950 Output Total 2130 / 2130 Balance 2720 / 2720 1460 / 1460 3590 / 3590 950 / 950 Weight 67.2 kg 68.3 kg 67.4 kg Physical Exam: CONSTITUTIONAL/GENERAL: This is an adequately nourished patient; sedated; minimally responsive in an SICU bed TUBES/LINES/DRAINS: orotracheal tube; nasogastric tube; right radial arterial line; left subclavian central line; castillo catheter; soft wrist restraints; wound vac; SCDs. SKIN: No jaundice, rashes, or lesions. Open abdominal surgical wound. Skin temperature appropriate. Not diaphoretic. HEAD: Atraumatic. Normocephalic. EYES: Pupils equal and round and reactive. Extraocular motions could not be assessed. No scleral icterus. No injection or drainage. Fundi not examined. ENT: Unable to evaluate hearing due to sedation. Nose without bleeding or purulent drainage. Throat without visible erythema, exudates, masses, or lesions though difficult to evaluate due to intubations. NECK: Trachea midline. No palpable thyroid enlargement or nodularity. CARDIOVASCULAR: Regular rate and rhythm without murmurs, gallops, or rubs. No JVD. Peripheral pulses symmetric. RESPIRATORY/CHEST: Symmetric, unlabored respirations. Clear to auscultation. Breath sounds equal bilaterally. No wheezes, rales, or rhonchi. GASTROINTESTINAL: Open abdominal wound with wound vac. Cannot adequately assess for organomegaly/masses due to open wound and dressing. No bowel sounds heard. GENITOURINARY: Without palpable bladder distension. Castillo catheter in place. MUSCULOSKELETAL: Extremities without clubbing, cyanosis, or edema.SCDs in place. No mottling or clubbing. LYMPHATICS: No palpable cervical or supraclavicular adenopathy. NEUROLOGICAL: Sedated. Does not open eyes to voice/exam. Unable to follow commands. Withdraws to noxious stimuli in all extremities. PSYCHIATRIC: Unable to assess due to level of responsiveness. . Diagnostic Tests Laboratory: Laboratory Results - last 72 hr 12/17/17 12/22/17 12/22/17 17:30 12:30 17:07 WBC RBC Hgb Hct MCV MCH MCHC RDW Plt Count MPV Prelim Diff (Auto) Neut % (Auto) Lymph % (Auto) Rock % (Auto) Eos % (Auto) Baso % (Auto) Neut # (Auto) Lymph # (Auto) Rock # (Auto) Eos # (Auto) Baso # (Auto) WBC Differential Diff Scan Differential Comment Platelet Estimate Platelet Morphology RBC Morphology Puncture Site Patient Temperature O2 Saturation ABG pH ABG pCO2 ABG pO2 ABG HCO3 ABG O2 Content ABG Base Excess ABG Methemoglobin Hemoglobin Carboxyhemoglobin O2 Delivery Device Vent Setting Inspired O2 Critical Value Sodium Potassium Chloride Carbon Dioxide Anion Gap BUN Creatinine Estimated GFR POC Glucose 91 93 Random Glucose Lactic Acid Calcium Prot Corrected Calcium Phosphorus Magnesium Total Protein Prealbumin TSH Free T4 Thyroxine (T4) Nasal Screen MRSA (PCR) E. histolytica IgG Ab Negative Blood Type Antibody Screen MTS Gel Crossmatch 12/22/17 12/23/17 12/23/17 20:53 04:02 07:52 WBC RBC Hgb Hct MCV MCH MCHC RDW Plt Count MPV Prelim Diff (Auto) Neut % (Auto) Lymph % (Auto) Rock % (Auto) Eos % (Auto) Baso % (Auto) Neut # (Auto) Lymph # (Auto) Rock # (Auto) Eos # (Auto) Baso # (Auto) WBC Differential Diff Scan Differential Comment Platelet Estimate Platelet Morphology RBC Morphology Puncture Site Patient Temperature O2 Saturation ABG pH ABG pCO2 ABG pO2 ABG HCO3 ABG O2 Content ABG Base Excess ABG Methemoglobin Hemoglobin Carboxyhemoglobin O2 Delivery Device Vent Setting Inspired O2 Critical Value Sodium 140 Potassium 4.2 Chloride 112 H Carbon Dioxide 21.0 Anion Gap 7 BUN 5 L Creatinine 0.85 Estimated GFR 76 L POC Glucose 95 62 L Random Glucose 111 H Lactic Acid Calcium 7.1 L* Prot Corrected Calcium 7.8 L Phosphorus Magnesium 1.2 L Total Protein 5.8 L Prealbumin TSH Free T4 Thyroxine (T4) Nasal Screen MRSA (PCR) E. histolytica IgG Ab Blood Type Antibody Screen MTS Gel Crossmatch 12/23/17 12/23/17 12/23/17 09:39 17:34 19:56 WBC RBC Hgb Hct MCV MCH MCHC RDW Plt Count MPV Prelim Diff (Auto) Neut % (Auto) Lymph % (Auto) Rock % (Auto) Eos % (Auto) Baso % (Auto) Neut # (Auto) Lymph # (Auto) Rock # (Auto) Eos # (Auto) Baso # (Auto) WBC Differential Diff Scan Differential Comment Platelet Estimate Platelet Morphology RBC Morphology Puncture Site Patient Temperature O2 Saturation ABG pH ABG pCO2 ABG pO2 ABG HCO3 ABG O2 Content ABG Base Excess ABG Methemoglobin Hemoglobin Carboxyhemoglobin O2 Delivery Device Vent Setting Inspired O2 Critical Value Sodium Potassium Chloride Carbon Dioxide Anion Gap BUN Creatinine Estimated GFR POC Glucose 68 123 H 111 H Random Glucose Lactic Acid Calcium Prot Corrected Calcium Phosphorus Magnesium Total Protein Prealbumin TSH Free T4 Thyroxine (T4) Nasal Screen MRSA (PCR) E. histolytica IgG Ab Blood Type Antibody Screen MTS Gel Crossmatch 12/24/17 12/24/17 12/24/17 05:14 11:37 20:12 WBC 7.8 RBC 2.01 L Hgb 6.3 L* Hct 19.5 L* MCV 97.2 MCH 31.6 MCHC 32.5 RDW 15.5 Plt Count 271 MPV 9.4 Prelim Diff (Auto) Slide review pending Neut % (Auto) 83.3 H Lymph % (Auto) 9.8 Rock % (Auto) 6.2 Eos % (Auto) 0.3 Baso % (Auto) 0.4 Neut # (Auto) 6.5 Lymph # (Auto) 0.8 L Rock # (Auto) 0.5 Eos # (Auto) 0.0 Baso # (Auto) 0.0 WBC Differential . Diff Scan Auto diff confirmed Differential Comment . Platelet Estimate Normal Platelet Morphology Normal RBC Morphology Normal Puncture Site Patient Temperature O2 Saturation ABG pH ABG pCO2 ABG pO2 ABG HCO3 ABG O2 Content ABG Base Excess ABG Methemoglobin Hemoglobin Carboxyhemoglobin O2 Delivery Device Vent Setting Inspired O2 Critical Value Sodium 139 Potassium 3.9 Chloride 108 H Carbon Dioxide 22.5 Anion Gap 9 BUN 9 Creatinine 0.98 Estimated GFR 65 L POC Glucose 90 Random Glucose 137 H Lactic Acid Calcium 6.9 L* Prot Corrected Calcium 7.9 L Phosphorus Magnesium 1.5 Total Protein 5.1 L D Prealbumin TSH Free T4 Thyroxine (T4) Nasal Screen MRSA (PCR) E. histolytica IgG Ab Blood Type Antibody Screen MTS Gel Crossmatch 12/24/17 12/24/17 12/24/17 20:13 20:59 22:00 WBC RBC Hgb Hct MCV MCH MCHC RDW Plt Count MPV Prelim Diff (Auto) Neut % (Auto) Lymph % (Auto) Rock % (Auto) Eos % (Auto) Baso % (Auto) Neut # (Auto) Lymph # (Auto) Rock # (Auto) Eos # (Auto) Baso # (Auto) WBC Differential Diff Scan Differential Comment Platelet Estimate Platelet Morphology RBC Morphology Puncture Site O.r. Patient Temperature 98.6 O2 Saturation 96 ABG pH 7.31 L ABG pCO2 37 L ABG pO2 175 H ABG HCO3 18 L ABG O2 Content 8.8 L ABG Base Excess -6.9 L ABG Methemoglobin 1.9 Hemoglobin 6.2 L* Carboxyhemoglobin 1.4 O2 Delivery Device Vent Vent Setting O.r. Inspired O2 100 Critical Value Yes Sodium Potassium Chloride Carbon Dioxide Anion Gap BUN Creatinine Estimated GFR POC Glucose Random Glucose Lactic Acid Calcium Prot Corrected Calcium Phosphorus Magnesium Total Protein Prealbumin TSH Free T4 Thyroxine (T4) Nasal Screen MRSA (PCR) Mrsa detected E. histolytica IgG Ab Blood Type O Positive Antibody Screen Negative MTS Gel Crossmatch See Detail 12/24/17 12/25/17 12/25/17 23:34 00:26 00:27 WBC RBC Hgb Hct MCV MCH MCHC RDW Plt Count MPV Prelim Diff (Auto) Neut % (Auto) Lymph % (Auto) Rock % (Auto) Eos % (Auto) Baso % (Auto) Neut # (Auto) Lymph # (Auto) Rock # (Auto) Eos # (Auto) Baso # (Auto) WBC Differential Diff Scan Differential Comment Platelet Estimate Platelet Morphology RBC Morphology Puncture Site Art line Patient Temperature 98.6 O2 Saturation 96 ABG pH 7.46 H ABG pCO2 30 L ABG pO2 100 ABG HCO3 21 L ABG O2 Content 14.1 ABG Base Excess -2.3 L ABG Methemoglobin 1.2 Hemoglobin 10.3 L Carboxyhemoglobin 1.4 O2 Delivery Device Ventilator Vent Setting See comment Inspired O2 50 Critical Value No Sodium Potassium Chloride Carbon Dioxide Anion Gap BUN Creatinine Estimated GFR POC Glucose 78 90 Random Glucose Lactic Acid Calcium Prot Corrected Calcium Phosphorus Magnesium Total Protein Prealbumin TSH Free T4 Thyroxine (T4) Nasal Screen MRSA (PCR) E. histolytica IgG Ab Blood Type Antibody Screen Dabble Gel Crossmatch 12/25/17 12/25/17 12/25/17 00:50 00:50 03:18 WBC RBC Hgb Hct MCV MCH MCHC RDW Plt Count MPV Prelim Diff (Auto) Neut % (Auto) Lymph % (Auto) Rock % (Auto) Eos % (Auto) Baso % (Auto) Neut # (Auto) Lymph # (Auto) Rock # (Auto) Eos # (Auto) Baso # (Auto) WBC Differential Diff Scan Differential Comment Platelet Estimate Platelet Morphology RBC Morphology Puncture Site Patient Temperature O2 Saturation ABG pH ABG pCO2 ABG pO2 ABG HCO3 ABG O2 Content ABG Base Excess ABG Methemoglobin Hemoglobin Carboxyhemoglobin O2 Delivery Device Vent Setting Inspired O2 Critical Value Sodium Potassium Chloride Carbon Dioxide Anion Gap BUN Creatinine Estimated GFR POC Glucose 135 H Random Glucose Lactic Acid 0.9 Calcium Prot Corrected Calcium Phosphorus Magnesium Total Protein Prealbumin 5 L TSH Free T4 Thyroxine (T4) Nasal Screen MRSA (PCR) E. histolytica IgG Ab Blood Type Antibody Screen MTS Gel Crossmatch 12/25/17 12/25/17 12/25/17 05:20 05:20 05:24 WBC 10.9 RBC 3.42 L Hgb 10.6 L D Hct 31.6 L MCV 92.3 D MCH 31.1 MCHC 33.7 RDW 16.4 Plt Count 244 MPV 8.9 Prelim Diff (Auto) Neut % (Auto) Lymph % (Auto) Rock % (Auto) Eos % (Auto) Baso % (Auto) Neut # (Auto) Lymph # (Auto) Rock # (Auto) Eos # (Auto) Baso # (Auto) WBC Differential Diff Scan Differential Comment Platelet Estimate Platelet Morphology RBC Morphology Puncture Site Patient Temperature O2 Saturation ABG pH ABG pCO2 ABG pO2 ABG HCO3 ABG O2 Content ABG Base Excess ABG Methemoglobin Hemoglobin Carboxyhemoglobin O2 Delivery Device Vent Setting Inspired O2 Critical Value Sodium 141 Potassium 3.6 Chloride 111 H Carbon Dioxide 21.6 Anion Gap 8 BUN 10 Creatinine 0.84 Estimated GFR 77 L POC Glucose 135 H Random Glucose 172 H Lactic Acid Calcium 7.4 L* Prot Corrected Calcium 8.8 D Phosphorus 1.4 L Magnesium 1.6 Total Protein 4.6 L Prealbumin TSH 5.370 H Free T4 1.19 Thyroxine (T4) 7.7 Nasal Screen MRSA (PCR) E. histolytica IgG Ab Blood Type Antibody Screen MTS Gel Crossmatch 12/25/17 05:42 WBC RBC Hgb Hct MCV MCH MCHC RDW Plt Count MPV Prelim Diff (Auto) Neut % (Auto) Lymph % (Auto) Rock % (Auto) Eos % (Auto) Baso % (Auto) Neut # (Auto) Lymph # (Auto) Rock # (Auto) Eos # (Auto) Baso # (Auto) WBC Differential Diff Scan Differential Comment Platelet Estimate Platelet Morphology RBC Morphology Puncture Site Art line Patient Temperature 98.6 O2 Saturation 97 ABG pH 7.48 H ABG pCO2 27 L ABG pO2 145 H ABG HCO3 20 L ABG O2 Content 14.1 ABG Base Excess -2.7 L ABG Methemoglobin 1.3 Hemoglobin 10.1 L Carboxyhemoglobin 1.4 O2 Delivery Device Ventilator Vent Setting See comment Inspired O2 50 Critical Value No Sodium Potassium Chloride Carbon Dioxide Anion Gap BUN Creatinine Estimated GFR POC Glucose Random Glucose Lactic Acid Calcium Prot Corrected Calcium Phosphorus Magnesium Total Protein Prealbumin TSH Free T4 Thyroxine (T4) Nasal Screen MRSA (PCR) E. histolytica IgG Ab Blood Type Antibody Screen MTS Gel Crossmatch Result Diagrams: 12/25/17 05:20 12/25/17 05:20 Imaging: Abdomen X-Ray 12/24/17 00:00 CONCLUSION: Dilated small bowel with collapse of the colon most characteristic of small bowel obstructive process. Calcific atherosclerotic vascular disease Abdomen/Pelvis CT 12/24/17 00:00 CONCLUSION: 1. Small to moderate amount of free air of concern for ruptured viscus. 2. Abnormal bowel gas pattern with dilated loops of small bowel and air-fluid levels most characteristic of a small bowel obstruction. 3. Moderate diverticulosis present. These findings were called to Dr. Aldrich at 1839 hours. Chest X-Ray 12/24/17 23:04 CONCLUSION: Left central line tip in superior vena cava without pneumothorax. Bilateral mostly basilar airspace disease and small to moderate-sized pleural effusions present. Procedures: Intubation/mechanical ventilation Left subclavian central line placement Right radial arterial line placement Exploratory lap --> resection of terminal ileum/appendectomy . Patient/Family Conference Present at Family Conference: son -- Don Family Conference Time: 20 Family Conference Location: Telephone Issues Discussed: * Palliative care role, purpose, approach * Additional medical, psychosocial, and spiritual history * Patients general health, functional status, and cognitive changes in the months leading up to the current hospitalization * Family understanding of the current medical problems * Family understanding of prognosis * Patients goals of care as best understood from conversations and/or values * Current medical treatment options and benefits/burdens of those options * Questions answered to the best of my ability * Palliative care contact information provided . Assessment and Plan - Disease Oriented Problem List (1) Ischemic bowel syndrome (2) Septic shock (3) Sepsis (4) Anemia (5) Hypoalbuminemia - Symptom Scale (1) Pain 0-10 Scale: Unable to quantify (2) Dyspnea 0-10 Scale: Unable to quantify (3) Encephalopathy 0-10 Scale: Unable to quantify Pertinent Non-Medical Issues: Psychosocial: Originally from [place]. Moved to [facility] around 1991. High school graduate. 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 Two sons -- Lynda -- live locally and check in on her frequently. Spiritual: Anabaptist and spirituality have not played a large role in her life. She does not belong to any local max group. She does pray, however. Legal: No known advanced directive. Without a designated healthcare surrogate, her sons would be the joint proxy healthcare decision makers. Ethical issues impacting care: Patient is incapacitated to make her own healthcare decisions. It is currently unknown if she will regain capacity to do so. Important Contacts: Don Johnson (son and co-proxy) [phone] Yves Johnson (son and co-proxy) [phone] . Prognosis: Ms. Johnson is critically ill. She was in remarkably good shape for her age until about 2-3 weeks ago when her GI problems began, but she has gone into major surgery undernourished and post-operatively she is now hypotensive, bradycardic , and hypothermic. She is scheduled for additional surgery on 12/26/17. In spite of her relatively high level of functioning just weeks ago, she remains an grave risk of not surviving the hospitalization. Should she survive, the odds are that she would not get home again and would be either in a nursing facility or the hospital until her . At such time that patient or family feels that comfort measures only would be most in line with her goals, she would be eligible for hospice services. . Code Status: Full Code Plan: == Code Status: FULL CODE -- per conversation with son Don on 12/25/17, patient had a quality of life she would want to fight hard to preserve and would want an attempted resuscitation. == Goals of medical treatment: Per son Don, patient would want aggressive care and a resuscitation attempt at this time. Should she not do well after surgery and doctors did not think they had a reasonable chance of returning her to life with some quality, she would not want to be maintained on machines. == Medical Decision making: There is no known written designation of healthcare surrogate. Per [place] statutes hierarchy, proxy medical decision making would fall jointly to her two sons--Don and Yves. == Symptoms * Pain: There were no known prehospitalization pain syndromes. Current sources of pain include her recent abdominal surgery; orotracheal and nasogastric intubations; vascular access lines; prolonged bedbound status; Castillo catheter. Patient currently with propofol and fentanyl on board which appear to be adequately addressing these. No further recommendations at this time. * Dyspnea: No known underlying lung disease. Current respiratory issues probably secondary to shock. Dyspnea being managed via intubation and mechanical ventilation. No further recommendations at this time. * Encephalopathy: No known underlying dementia. Encephalopathy is probably multifactorial with sepsis playing a large role. If we are able to get the patient through another surgery and treat her medical issues it is anticipated that encephalopathy will improve. == Son will look through patient's papers to see if he can find any type of advanced directive. == I believe chest compressions and defibrillation are unlikely, at this point, to help this patient survive to hospital discharge should she suffer a cardiac arrest. I have approached DNR status with son, but would encourage other providers to make this point should she survive the immediate post op period during which any DNR order would be suspended anyway. == At anytime goals of care should transition to "comfort measures only," patient would be eligible for hospice services. == Palliative care will continue to follow to assist with symptom management and to further clarify goals of medical treatment as the clinical course evolves. . Appreciation Thank you for the opportunity to participate in the care of Michelle Johnson. Attestation Attestation: To help prompt me to consider important information that might be impacting today's encounter and assessment, information from prior notes written by myself or my colleagues may have been "brought forward" into today's note. My signature on this note, however, is an attestation that I personally performed the exam, history, and/or decision-making noted today, and, unless otherwise indicated, the interactions with patient, family, and staff as well as the review of records all occurred today. I also attest that the listed assessment and stated plan reflect my best clinical judgment today based on the combination of historical information, prior notes, and today's exam/ interactions. When time spent is documented, it refers only to time spent today by the signer, or if indicated, combined time spent today by collaborating physician/nurse practitioner. .
--- NOTE | 2017-12-25 10:48 | P.PNGI ---
Subjective Interval history: KUB done yesterday for evaluation of abdominal distention revealed small bowel obstructive process. Placed consult to educational coordinator GS, discussed with Sigrid Wolff ROLLING ATTENDANT, recommended CT abdomen/pelvis for further evaluation. CT with findings of free air with concern for ruptured viscus and continued to reveal small bowel obstruction. Pt was taken for emergent surgery, exploratory laparotomy- findings of free air with perforation of distal ileum with partial necrosis of distal ileum, resection of nonviable small bowel, distal ileum, appendectomy. Abdomen was left open with wound vac. Pt was transferred to ICU where she remains intubated and sedated. <Natalie Bojorquez - Last Filed: 12/25/17 10:43> Physical Exam Vital signs: Vital Signs 12/24/17 12:00 12/24/17 15:37 12/24/17 19:45 Temperature 97.9 F 97.6 F 97.9 F Pulse Rate 88 94 H 98 H Respiratory Rate 18 18 18 Blood Pressure 102/57 L 110/58 L 120/67 Pulse Oximetry 95 91 L 97 12/24/17 21:51 12/24/17 22:11 12/24/17 23:51 Temperature Pulse Rate 124 H Respiratory Rate 16 16 16 Blood Pressure 168/66 H Pulse Oximetry 99 99 95 12/25/17 00:00 12/25/17 00:34 12/25/17 04:00 Temperature 97.5 F L Pulse Rate 69 87 Respiratory Rate 16 16 16 Blood Pressure 133/60 109/55 L Pulse Oximetry 12/25/17 04:09 12/25/17 08:00 12/25/17 08:10 Temperature 97.9 F Pulse Rate 82 Respiratory Rate 16 16 15 Blood Pressure 114/55 L Pulse Oximetry 99 98 97 Intake & Output 12/24/17 12/25/17 12/25/17 18:59 06:59 18:59 Intake Total 720 / 720 5000 / 5000 950 / 950 Output Total 2130 / 2130 Balance 720 / 720 2870 / 2870 950 / 950 Weight 67.4 kg Intake: IV 200 / 200 950 / 950 D5W/LR Inj 1,000 ML @ 125 mls/ 950 / 950 hr IV.CONT .Q8H [facility] Rx#: [id number] Zosyn 4.5 GM Premix 4.5 gm In 200 / 200 100 ml @ 200 mls/hr IV.SIG Q6H [facility] Rx#:[id number] Oral 720 / 720 Anesthesia Amount 4000 / 4000 Intake (Blood Product) Amt 800 / 800 Rbc Cp2d Leukoreduced Unit 400 / 400 [id number] Rbc Cp2d Leukoreduced Unit 400 / 400 [id number] Output: Estimated Blood Loss 50 / 50 Urine Amount (Catheter) 500 / 500 Indwelling Urethral Catheter 500 / 500 Gastric Drainage 1230 / 1230 Nasogastric Tube 1200 / 1200 Right Nare 30 / 30 Wound Vac Amount 350 / 350 Midline Abdomen 350 / 350 Other: Mode Setting Midline Abdomen Continuous # Voids 4 Date of Last Bowel Movement 12/18/17 # Bowel Movements 5 - Constitutional no acute distress - Routine HEENT Exam Head: Present: normocephalic, atraumatic - Routine Respiratory Exam Present: patient mechanically ventilated - Routine Abdominal Exam Present: soft, normoactive bowel sounds, distended Comments: wound vac to mid abdomen, abdominal binder in place - Routine Skin Exam Present: dry, warm - Urinary Catheter Management Indwelling Urethral Catheter Cath placed during this visit: yes Reason for continuing: Hourly intake/output Insertion date: 12/24/17 Insertion time: 20:15 <Natalie Bojorquez - Last Filed: 12/25/17 10:43> Vital signs: Vital Signs 12/24/17 12:00 12/24/17 15:37 12/24/17 19:45 Temperature 97.9 F 97.6 F 97.9 F Pulse Rate 88 94 H 98 H Respiratory Rate 18 18 18 Blood Pressure 102/57 L 110/58 L 120/67 Pulse Oximetry 95 91 L 97 12/24/17 21:51 12/24/17 22:11 12/24/17 23:51 Temperature Pulse Rate 124 H Respiratory Rate 16 16 16 Blood Pressure 168/66 H Pulse Oximetry 99 99 95 12/25/17 00:00 12/25/17 00:34 12/25/17 04:00 Temperature 97.5 F L Pulse Rate 69 87 Respiratory Rate 16 16 16 Blood Pressure 133/60 109/55 L Pulse Oximetry 12/25/17 04:09 12/25/17 08:00 12/25/17 08:10 Temperature 97.9 F Pulse Rate 82 Respiratory Rate 16 16 15 Blood Pressure 114/55 L Pulse Oximetry 99 98 97 Intake & Output 12/24/17 12/25/1712/25/18 18:59 06:59 18:59 Intake Total 720 / 720 5000 / 5000 950 / 950 Output Total 2130 / 2130 Balance 720 / 720 2870 / 2870 950 / 950 Weight 67.4 kg Intake: IV 200 / 200 950 / 950 D5W/LR Inj 1,000 ML @ 125 mls/ 950 / 950 hr IV.CONT .Q8H [facility] Rx#: [id number] Zosyn 4.5 GM Premix 4.5 gm In 200 / 200 100 ml @ 200 mls/hr IV.SIG Q6H [facility] Rx#:[id number] Oral 720 / 720 Anesthesia Amount 4000 / 4000 Intake (Blood Product) Amt 800 / 800 Rbc Cp2d Leukoreduced Unit 400 / 400 [id number] Rbc Cp2d Leukoreduced Unit 400 / 400 [id number] Output: Estimated Blood Loss 50 / 50 Urine Amount (Catheter) 500 / 500 Indwelling Urethral Catheter 500 / 500 Gastric Drainage 1230 / 1230 Nasogastric Tube 1200 / 1200 Right Nare 30 / 30 Wound Vac Amount 350 / 350 Midline Abdomen 350 / 350 Other: Mode Setting Midline Abdomen Continuous # Voids 4 Date of Last Bowel Movement 12/18/17 # Bowel Movements 5 - Urinary Catheter Management Indwelling Urethral Catheter Cath placed during this visit: no <Daniele Harris A - Last Filed: 12/25/17 11:28> Results - Labs CBC & Chem 7: 12/25/17 05:20 12/25/17 05:20 Laboratory Results - last 24 hr 12/24/17 12/24/17 12/24/17 11:37 20:12 20:13 WBC 7.8 RBC 2.01 L Hgb 6.3 L* Hct 19.5 L* MCV 97.2 MCH 31.6 MCHC 32.5 RDW 15.5 Plt Count 271 MPV 9.4 Prelim Diff (Auto) Slide review pending Neut % (Auto) 83.3 H Lymph % (Auto) 9.8 Bowman % (Auto) 6.2 Eos % (Auto) 0.3 Baso % (Auto) 0.4 Neut # (Auto) 6.5 Lymph # (Auto) 0.8 L Bowman # (Auto) 0.5 Eos # (Auto) 0.0 Baso # (Auto) 0.0 WBC Differential . Diff Scan Auto diff confirmed Differential Comment . Platelet Estimate Normal Platelet Morphology Normal RBC Morphology Normal Puncture Site Patient Temperature O2 Saturation ABG pH ABG pCO2 ABG pO2 ABG HCO3 ABG O2 Content ABG Base Excess ABG Methemoglobin Hemoglobin Carboxyhemoglobin O2 Delivery Device Vent Setting Inspired O2 Critical Value Sodium Potassium Chloride Carbon Dioxide Anion Gap BUN Creatinine Estimated GFR POC Glucose 90 Random Glucose Lactic Acid Calcium Prot Corrected Calcium Phosphorus Magnesium Total Protein Prealbumin TSH Free T4 Thyroxine (T4) Nasal Screen MRSA (PCR) Blood Type O Positive Antibody Screen Negative MTS Gel Crossmatch See Detail 12/24/17 12/24/17 12/24/17 20:59 22:00 23:34 WBC RBC Hgb Hct MCV MCH MCHC RDW Plt Count MPV Prelim Diff (Auto) Neut % (Auto) Lymph % (Auto) Bowman % (Auto) Eos % (Auto) Baso % (Auto) Neut # (Auto) Lymph # (Auto) Bowman # (Auto) Eos # (Auto) Baso # (Auto) WBC Differential Diff Scan Differential Comment Platelet Estimate Platelet Morphology RBC Morphology Puncture Site O.r. Art line Patient Temperature 98.6 98.6 O2 Saturation 96 96 ABG pH 7.31 L 7.46 H ABG pCO2 37 L 30 L ABG pO2 175 H 100 ABG HCO3 18 L 21 L ABG O2 Content 8.8 L 14.1 ABG Base Excess -6.9 L -2.3 L ABG Methemoglobin 1.9 1.2 Hemoglobin 6.2 L* 10.3 L Carboxyhemoglobin 1.4 1.4 O2 Delivery Device Vent Ventilator Vent Setting O.r. See comment Inspired O2 100 50 Critical Value Yes No Sodium Potassium Chloride Carbon Dioxide Anion Gap BUN Creatinine Estimated GFR POC Glucose Random Glucose Lactic Acid Calcium Prot Corrected Calcium Phosphorus Magnesium Total Protein Prealbumin TSH Free T4 Thyroxine (T4) Nasal Screen MRSA (PCR) Mrsa detected Blood Type Antibody Screen MTS Gel Crossmatch 12/25/17 12/25/17 12/25/17 00:26 00:27 00:50 WBC RBC Hgb Hct MCV MCH MCHC RDW Plt Count MPV Prelim Diff (Auto) Neut % (Auto) Lymph % (Auto) Bowman % (Auto) Eos % (Auto) Baso % (Auto) Neut # (Auto) Lymph # (Auto) Bowman # (Auto) Eos # (Auto) Baso # (Auto) WBC Differential Diff Scan Differential Comment Platelet Estimate Platelet Morphology RBC Morphology Puncture Site Patient Temperature O2 Saturation ABG pH ABG pCO2 ABG pO2 ABG HCO3 ABG O2 Content ABG Base Excess ABG Methemoglobin Hemoglobin Carboxyhemoglobin O2 Delivery Device Vent Setting Inspired O2 Critical Value Sodium Potassium Chloride Carbon Dioxide Anion Gap BUN Creatinine Estimated GFR POC Glucose 78 90 Random Glucose Lactic Acid 0.9 Calcium Prot Corrected Calcium Phosphorus Magnesium Total Protein Prealbumin TSH Free T4 Thyroxine (T4) Nasal Screen MRSA (PCR) Blood Type Antibody Screen MTS Gel Crossmatch 12/25/17 12/25/17 12/25/17 00:50 03:18 05:20 WBC 10.9 RBC 3.42 L Hgb 10.6 L D Hct 31.6 L MCV 92.3 D MCH 31.1 MCHC 33.7 RDW 16.4 Plt Count 244 MPV 8.9 Prelim Diff (Auto) Neut % (Auto) Lymph % (Auto) Bowman % (Auto) Eos % (Auto) Baso % (Auto) Neut # (Auto) Lymph # (Auto) Bowman # (Auto) Eos # (Auto) Baso # (Auto) WBC Differential Diff Scan Differential Comment Platelet Estimate Platelet Morphology RBC Morphology Puncture Site Patient Temperature O2 Saturation ABG pH ABG pCO2 ABG pO2 ABG HCO3 ABG O2 Content ABG Base Excess ABG Methemoglobin Hemoglobin Carboxyhemoglobin O2 Delivery Device Vent Setting Inspired O2 Critical Value Sodium Potassium Chloride Carbon Dioxide Anion Gap BUN Creatinine Estimated GFR POC Glucose 135 H Random Glucose Lactic Acid Calcium Prot Corrected Calcium Phosphorus Magnesium Total Protein Prealbumin 5 L TSH Free T4 Thyroxine (T4) Nasal Screen MRSA (PCR) Blood Type Antibody Screen [facility] Gel Crossmatch 12/25/17 12/25/17 12/25/17 05:20 05:24 05:42 WBC RBC Hgb Hct MCV MCH MCHC RDW Plt Count MPV Prelim Diff (Auto) Neut % (Auto) Lymph % (Auto) Bowman % (Auto) Eos % (Auto) Baso % (Auto) Neut # (Auto) Lymph # (Auto) Bowman # (Auto) Eos # (Auto) Baso # (Auto) WBC Differential Diff Scan Differential Comment Platelet Estimate Platelet Morphology RBC Morphology Puncture Site Art line Patient Temperature 98.6 O2 Saturation 97 ABG pH 7.48 H ABG pCO2 27 L ABG pO2 145 H ABG HCO3 20 L ABG O2 Content 14.1 ABG Base Excess -2.7 L ABG Methemoglobin 1.3 Hemoglobin 10.1 L Carboxyhemoglobin 1.4 O2 Delivery Device Ventilator Vent Setting See comment Inspired O2 50 Critical Value No Sodium 141 Potassium 3.6 Chloride 111 H Carbon Dioxide 21.6 Anion Gap 8 BUN 10 Creatinine 0.84 Estimated GFR 77 L POC Glucose 135 H Random Glucose 172 H Lactic Acid Calcium 7.4 L* Prot Corrected Calcium 8.8 D Phosphorus 1.4 L Magnesium 1.6 Total Protein 4.6 L Prealbumin TSH 5.370 H Free T4 1.19 Thyroxine (T4) 7.7 Nasal Screen MRSA (PCR) Blood Type Antibody Screen MTS Gel Crossmatch - Imaging Impressions Abdomen X-Ray 12/24/17 00:00 CONCLUSION: Dilated small bowel with collapse of the colon most characteristic of small bowel obstructive process. Calcific atherosclerotic vascular disease Abdomen/Pelvis CT 12/24/17 00:00 CONCLUSION: 1. Small to moderate amount of free air of concern for ruptured viscus. 2. Abnormal bowel gas pattern with dilated loops of small bowel and air-fluid levels most characteristic of a small bowel obstruction. 3. Moderate diverticulosis present. These findings were called to Dr. Aldrich at 1839 hours. Chest X-Ray 12/24/17 23:04 CONCLUSION: Left central line tip in superior vena cava without pneumothorax. Bilateral mostly basilar airspace disease and small to moderate-sized pleural effusions present. <Natalie Bojorquez - Last Filed: 12/25/17 10:43> - Labs CBC & Chem 7: 12/25/17 05:20 12/25/17 05:20 Laboratory Results - last 24 hr 12/24/17 12/24/17 12/24/17 11:37 20:12 20:13 WBC 7.8 RBC 2.01 L Hgb 6.3 L* Hct 19.5 L* MCV 97.2 MCH 31.6 MCHC 32.5 RDW 15.5 Plt Count 271 MPV 9.4 Prelim Diff (Auto) Slide review pending Neut % (Auto) 83.3 H Lymph % (Auto) 9.8 Bowman % (Auto) 6.2 Eos % (Auto) 0.3 Baso % (Auto) 0.4 Neut # (Auto) 6.5 Lymph # (Auto) 0.8 L Bowman # (Auto) 0.5 Eos # (Auto) 0.0 Baso # (Auto) 0.0 WBC Differential . Diff Scan Auto diff confirmed Differential Comment . Platelet Estimate Normal Platelet Morphology Normal RBC Morphology Normal Puncture Site Patient Temperature O2 Saturation ABG pH ABG pCO2 ABG pO2 ABG HCO3 ABG O2 Content ABG Base Excess ABG Methemoglobin Hemoglobin Carboxyhemoglobin O2 Delivery Device Vent Setting Inspired O2 Critical Value Sodium Potassium Chloride Carbon Dioxide Anion Gap BUN Creatinine Estimated GFR POC Glucose 90 Random Glucose Lactic Acid Calcium Prot Corrected Calcium Phosphorus Magnesium Total Protein Prealbumin TSH Free T4 Thyroxine (T4) Nasal Screen MRSA (PCR) Blood Type O Positive Antibody Screen Negative MTS Gel Crossmatch See Detail 12/24/17 12/24/17 12/24/17 20:59 22:00 23:34 WBC RBC Hgb Hct MCV MCH MCHC RDW Plt Count MPV Prelim Diff (Auto) Neut % (Auto) Lymph % (Auto) Bowman % (Auto) Eos % (Auto) Baso % (Auto) Neut # (Auto) Lymph # (Auto) Bowman # (Auto) Eos # (Auto) Baso # (Auto) WBC Differential Diff Scan Differential Comment Platelet Estimate Platelet Morphology RBC Morphology Puncture Site O.r. Art line Patient Temperature 98.6 98.6 O2 Saturation 96 96 ABG pH 7.31 L 7.46 H ABG pCO2 37 L 30 L ABG pO2 175 H 100 ABG HCO3 18 L 21 L ABG O2 Content 8.8 L 14.1 ABG Base Excess -6.9 L -2.3 L ABG Methemoglobin 1.9 1.2 Hemoglobin 6.2 L* 10.3 L Carboxyhemoglobin 1.4 1.4 O2 Delivery Device Vent Ventilator Vent Setting O.r. See comment Inspired O2 100 50 Critical Value Yes No Sodium Potassium Chloride Carbon Dioxide Anion Gap BUN Creatinine Estimated GFR POC Glucose Random Glucose Lactic Acid Calcium Prot Corrected Calcium Phosphorus Magnesium Total Protein Prealbumin TSH Free T4 Thyroxine (T4) Nasal Screen MRSA (PCR) Mrsa detected Blood Type Antibody Screen MTS Gel Crossmatch 12/25/17 12/25/17 12/25/17 00:26 00:27 00:50 WBC RBC Hgb Hct MCV MCH MCHC RDW Plt Count MPV Prelim Diff (Auto) Neut % (Auto) Lymph % (Auto) Bowman % (Auto) Eos % (Auto) Baso % (Auto) Neut # (Auto) Lymph # (Auto) Bowman # (Auto) Eos # (Auto) Baso # (Auto) WBC Differential Diff Scan Differential Comment Platelet Estimate Platelet Morphology RBC Morphology Puncture Site Patient Temperature O2 Saturation ABG pH ABG pCO2 ABG pO2 ABG HCO3 ABG O2 Content ABG Base Excess ABG Methemoglobin Hemoglobin Carboxyhemoglobin O2 Delivery Device Vent Setting Inspired O2 Critical Value Sodium Potassium Chloride Carbon Dioxide Anion Gap BUN Creatinine Estimated GFR POC Glucose 78 90 Random Glucose Lactic Acid 0.9 Calcium Prot Corrected Calcium Phosphorus Magnesium Total Protein Prealbumin TSH Free T4 Thyroxine (T4) Nasal Screen MRSA (PCR) Blood Type Antibody Screen MTS Gel Crossmatch 12/25/17 12/25/17 12/25/17 00:50 03:18 05:20 WBC 10.9 RBC 3.42 L Hgb 10.6 L D Hct 31.6 L MCV 92.3 D MCH 31.1 MCHC 33.7 RDW 16.4 Plt Count 244 MPV 8.9 Prelim Diff (Auto) Neut % (Auto) Lymph % (Auto) Bowman % (Auto) Eos % (Auto) Baso % (Auto) Neut # (Auto) Lymph # (Auto) Bowman # (Auto) Eos # (Auto) Baso # (Auto) WBC Differential Diff Scan Differential Comment Platelet Estimate Platelet Morphology RBC Morphology Puncture Site Patient Temperature O2 Saturation ABG pH ABG pCO2 ABG pO2 ABG HCO3 ABG O2 Content ABG Base Excess ABG Methemoglobin Hemoglobin Carboxyhemoglobin O2 Delivery Device Vent Setting Inspired O2 Critical Value Sodium Potassium Chloride Carbon Dioxide Anion Gap BUN Creatinine Estimated GFR POC Glucose 135 H Random Glucose Lactic Acid Calcium Prot Corrected Calcium Phosphorus Magnesium Total Protein Prealbumin 5 L TSH Free T4 Thyroxine (T4) Nasal Screen MRSA (PCR) Blood Type Antibody Screen [facility]TS Gel Crossmatch 12/25/17 12/25/17 12/25/17 05:20 05:24 05:42 WBC RBC Hgb Hct MCV MCH MCHC RDW Plt Count MPV Prelim Diff (Auto) Neut % (Auto) Lymph % (Auto) Bowman % (Auto) Eos % (Auto) Baso % (Auto) Neut # (Auto) Lymph # (Auto) Bowman # (Auto) Eos # (Auto) Baso # (Auto) WBC Differential Diff Scan Differential Comment Platelet Estimate Platelet Morphology RBC Morphology Puncture Site Art line Patient Temperature 98.6 O2 Saturation 97 ABG pH 7.48 H ABG pCO2 27 L ABG pO2 145 H ABG HCO3 20 L ABG O2 Content 14.1 ABG Base Excess -2.7 L ABG Methemoglobin 1.3 Hemoglobin 10.1 L Carboxyhemoglobin 1.4 O2 Delivery Device Ventilator Vent Setting See comment Inspired O2 50 Critical Value No Sodium 141 Potassium 3.6 Chloride 111 H Carbon Dioxide 21.6 Anion Gap 8 BUN 10 Creatinine 0.84 Estimated GFR 77 L POC Glucose 135 H Random Glucose 172 H Lactic Acid Calcium 7.4 L* Prot Corrected Calcium 8.8 D Phosphorus 1.4 L Magnesium 1.6 Total Protein 4.6 L Prealbumin TSH 5.370 H Free T4 1.19 Thyroxine (T4) 7.7 Nasal Screen MRSA (PCR) Blood Type Antibody Screen [facility] Gel Crossmatch - Imaging Impressions Abdomen X-Ray 12/24/17 00:00 CONCLUSION: Dilated small bowel with collapse of the colon most characteristic of small bowel obstructive process. Calcific atherosclerotic vascular disease Abdomen/Pelvis CT 12/24/17 00:00 CONCLUSION: 1. Small to moderate amount of free air of concern for ruptured viscus. 2. Abnormal bowel gas pattern with dilated loops of small bowel and air-fluid levels most characteristic of a small bowel obstruction. 3. Moderate diverticulosis present. These findings were called to Dr. Aldrich at 1839 hours. Chest X-Ray 12/24/17 23:04 CONCLUSION: Left central line tip in superior vena cava without pneumothorax. Bilateral mostly basilar airspace disease and small to moderate-sized pleural effusions present. <Daniele Harris - Last Filed: 12/25/17 11:28> Assessment and Plan - Plan Assessment: 1. Abdominal pain, diarrhea, and occasional nausea and vomiting. CT abdomen and pelvis WO IV contrast (12/12) Probable ileus related to bowel wall thickening involving the small bowel loops in the right lower quadrant suggesting an enteritis. Severe diverticulosis without diverticulitis. C. Diff stool negative. 2. Recent history of diverticulitis 3. Cholelithiasis. 4. Diffuse atherosclerosis. 2. Recent history of diverticulitis. 3. Colonoscopy in 2012 showed evidence of diverticulosis. 4. Recurrence of her symptoms despite appropriate treatment. 5. Normal electrolytes. 6. Chronic anemia. (12/24) Pt complaining of abdominal bloating, unable to eat more than a few bites or sips of water at a time. Abdomen does appear distended. States she is having diarrhea, incontinent, this has been going on for a while. (12/25) KUB done yesterday for evaluation of abdominal distention revealed small bowel obstructive process. Placed consult to educational coordinator GS, discussed with Sigrid Wolff ROLLING ATTENDANT, recommended CT abdomen/pelvis for further evaluation. CT with findings of free air with concern for ruptured viscus and continued to reveal small bowel obstruction. Pt was taken for emergent surgery, exploratory laparotomy- findings of free air with perforation of distal ileum with partial necrosis of distal ileum, resection of nonviable small bowel, distal ileum, appendectomy. Abdomen was left open with wound vac. Pt was transferred to ICU where she remains intubated and sedated. Our service will sign off, further recommendations per GS Plan: S/P exploratory laparotomy with resection of small bowel and appendectomy Further recommendations per GS Our service will sign off, please reconsult as needed Pt has been seen and examined by myself and Dr. Harris and this note is written on his behalf <Natalie Bojorquez - Last Filed: 12/25/17 10:43> - Attending Attestation Surgical input and intervention appreciated. Nothing to add at this point from GI point of view, please notify us if needed again. <Daniele Harris - Last Filed: 12/25/17 11:28>
--- NOTE | 2017-12-25 13:25 | P.PNGS ---
Subjective Interval history: DAILY PROGRESS NOTE FOR SURGICAL ATTENDING, DR. ROYA NAVA Intubated/Sedated HARPAL Cruz at bedside Physical Exam Vital signs: Vital Signs 12/24/17 15:37 12/24/17 19:45 12/24/17 21:51 Temperature 97.6 F 97.9 F Pulse Rate 94 H 98 H Respiratory Rate 18 18 16 Blood Pressure 110/58 L 120/67 Pulse Oximetry 91 L 97 99 12/24/17 22:11 12/24/17 23:51 12/25/17 00:00 Temperature Pulse Rate 124 H 69 Respiratory Rate 16 16 16 Blood Pressure 168/66 H 133/60 Pulse Oximetry 99 95 12/25/17 00:34 12/25/17 04:00 12/25/17 04:09 Temperature 97.5 F L Pulse Rate 87 Respiratory Rate 16 16 16 Blood Pressure 109/55 L Pulse Oximetry 99 12/25/17 08:00 12/25/17 08:10 12/25/17 11:57 Temperature 97.9 F 97.7 F Pulse Rate 82 87 Respiratory Rate 16 15 16 Blood Pressure 114/55 L 171/73 H Pulse Oximetry 98 97 100 12/25/17 12:25 Temperature Pulse Rate Respiratory Rate 15 Blood Pressure Pulse Oximetry 99 Intake & Output 12/24/17 12/25/17 12/25/17 18:59 06:59 18:59 Intake Total 720 / 720 5000 / 5000 950 / 950 Output Total 2130 / 2130 Balance 720 / 720 2870 / 2870 950 / 950 Weight 67.4 kg Intake: IV 200 / 200 950 / 950 D5W/LR Inj 1,000 ML @ 125 mls/ 950 / 950 hr IV.CONT .Q8H [facility] Rx#: [id number] Zosyn 4.5 GM Premix 4.5 gm In 200 / 200 100 ml @ 200 mls/hr IV.SIG Q6H [facility] Rx#:[id number] Oral 720 / 720 Anesthesia Amount 4000 / 4000 Intake (Blood Product) Amt 800 / 800 Rbc Cp2d Leukoreduced Unit 400 / 400 [id number] Rbc Cp2d Leukoreduced Unit 400 / 400 [id number] Output: Estimated Blood Loss 50 / 50 Urine Amount (Catheter) 500 / 500 Indwelling Urethral Catheter 500 / 500 Gastric Drainage 1230 / 1230 Nasogastric Tube 1200 / 1200 Right Nare 30 / 30 Wound Vac Amount 350 / 350 Midline Abdomen 350 / 350 Other: Mode Setting Midline Abdomen Continuous # Voids 4 Date of Last Bowel Movement 12/18/17 # Bowel Movements 5 Narrative: Intubated/Sedated Slightly hypotensive--now on Levephed Abd: Wound Vac in place with good seal NGT to LIWS - Urinary Catheter Management Indwelling Urethral Catheter Cath placed during this visit: yes Reason for continuing: Hourly intake/output Insertion date: 12/24/17 Insertion time: 20:15 Assessment and Plan - Assessment (1) Acute abdomen Code(s): R10.0 - Acute abdomen Status: Acute (2) Free intraperitoneal air Code(s): K66.8 - Other specified disorders of peritoneum Status: Acute Plan: 87 year old female POD1 dx lap converted to ex lap; resection of nonviable small bowel, distal ileum; appendectomy; placement of AbThera Wound Vac -Plan for return to OR tomorrow -NPO; NGT to [facility]WS -Pressor support as needed -Palliative Care consult pending (3) Enteritis Code(s): K52.9 - Noninfective gastroenteritis and colitis, unspecified Status : Acute (4) History of esophageal reflux Code(s): Z87.19 - Personal history of other diseases of the digestive system Status: Chronic (5) Elevated lactic acid level Code(s): R79.89 - Other specified abnormal findings of blood chemistry Status : Acute (6) Dehydration Code(s): E86.0 - Dehydration Status: Acute (7) Sepsis Code(s): A41.9 - Sepsis, unspecified organism Status: Acute (8) Hypomagnesemia Code(s): E83.42 - Hypomagnesemia Status: Acute (9) Hypertension Code(s): I10 - Essential (primary) hypertension Status: Chronic - Plan Patient stable in the intensive care unit on the ventilator all drips Discussed with son at bedside about surgical plans for tomorrow Filled out consent form Possibility of closure of abdominal wound tomorrow with possible connecting her back for doing a ostomy depending on her clinical condition - Attending Attestation NOTE FOR SURGICAL ATTENDING, DR. ROYA NAVA I agree with above assessment and plan. The exam, history, and the medical decision-making described in the above note were completed with the assistance of the mid-level provider. I reviewed and agree with the findings presented. I attest that I had a [id number] encounter with the patient on the same day, and personally performed and documented my assessment and findings in the medical record. The following services were provided during this hospital visit: Chart data review, vital sign assessments/reviewing monitor data Review of consultations notes if present. Medication orders/review and/or management Ordering and/or reviewing lab tests Ordering and/or interpreting/reviewing x-rays and/or diagnostic studies Care of the patient and discussion of the patient with the care team Documentation time To help prompt me to consider important information that might be impacting today's encounter and assessment, Information from prior notes written by myself or my colleagues may have been "brought forward/copy and pasted" into today's note. (7) Sepsis Qualifiers: Sepsis type: sepsis due to unspecified organism Qualified Code(s): A41.9 - Sepsis, unspecified organism (9) Hypertension Qualifiers: Hypertension type: essential hypertension Qualified Code(s): I10 - Essential (primary) hypertension
--- NOTE | 2017-12-25 14:17 | P.PNCC ---
Subjective Subjective Remarks/Hospital Course: 87yF originally admitted for abdominal pain and now found to have perforated hollow viscus with intra-abdominal free air. taken to OR emergently by Dr. Aldrich for exploratory laparotomy where they found small bowel perforation. small bowel was resected and due to significantly poor patient tissue and gross contamination of the field, patient was left in discontinuity with an open abdomen. arrives to the ICU intubated, critically ill, on vasopressors, in shock. sedated. no additional information is available from the patient; ROS unobtainable. 12/25: She remains oliguric and septic. We are unable to separate her from mechanical ventilation and are still correcting her metabolic acidosis. Pre- albumin of 5 implicates poor preoperative nutrition. Description of bowel from surgery lens support for a severely debilitated state prior to surgery. She is presently hemodynamically unstable and oliguric. Objective Vital Signs / I&O: Vital Signs 12/24/17 15:37 12/24/17 19:45 12/24/17 21:51 Temperature 97.6 F 97.9 F Pulse Rate 94 H 98 H Respiratory Rate 18 18 16 Blood Pressure 110/58 L 120/67 Pulse Oximetry 91 L 97 99 12/24/17 22:11 12/24/17 23:51 12/25/17 00:00 Temperature Pulse Rate 124 H 69 Respiratory Rate 16 16 16 Blood Pressure 168/66 H 133/60 Pulse Oximetry 99 95 12/25/17 00:34 12/25/17 04:00 12/25/17 04:09 Temperature 97.5 F L Pulse Rate 87 Respiratory Rate 16 16 16 Blood Pressure 109/55 L Pulse Oximetry 99 12/25/17 08:00 12/25/17 08:10 12/25/17 11:57 Temperature 97.9 F 97.7 F Pulse Rate 82 87 Respiratory Rate 16 15 16 Blood Pressure 114/55 L 171/73 H Pulse Oximetry 98 97 100 12/25/17 12:25 Temperature Pulse Rate Respiratory Rate 15 Blood Pressure Pulse Oximetry 99 Intake & Output 12/24/17 12/25/17 12/25/17 18:59 06:59 18:59 Intake Total 720 / 720 5000 / 5000 950 / 950 Output Total 2130 / 2130 Balance 720 / 720 2870 / 2870 950 / 950 Weight 67.4 kg Intake: IV 200 / 200 950 / 950 D5W/LR Inj 1,000 ML @ 125 mls/ 950 / 950 hr IV.CONT .Q8H [facility] Rx#: [id number] Zosyn 4.5 GM Premix 4.5 gm In 200 / 200 100 ml @ 200 mls/hr IV.SIG Q6H [facility] Rx#:[id number] Oral 720 / 720 Anesthesia Amount 4000 / 4000 Intake (Blood Product) Amt 800 / 800 Rbc Cp2d Leukoreduced Unit 400 / 400 [id number] Rbc Cp2d Leukoreduced Unit 400 / 400 [id number] Output: Estimated Blood Loss 50 / 50 Urine Amount (Catheter) 500 / 500 Indwelling Urethral Catheter 500 / 500 Gastric Drainage 1230 / 1230 Nasogastric Tube 1200 / 1200 Right Nare 30 / 30 Wound Vac Amount 350 / 350 Midline Abdomen 350 / 350 Other: Mode Setting Midline Abdomen Continuous # Voids 4 Date of Last Bowel Movement 12/18/17 # Bowel Movements 5 Result Diagrams: 12/25/17 05:20 12/25/17 05:20 Objective Remarks: Narrative: GENERAL: frail, elderly female, intubated, sedated, critically ill, on mechanical ventilation SKIN: very dry, cracked. Delayed response to pressure blanching of extremities. HEENT: nc. at. perrl. mucous membranes dry. CARDIOVASCULAR: Tachycardic rate, regular rhythm. sinus. arrived on phenylephrine. RESPIRATORY: prvc mode. equal chest rise. decreased breath sounds in bases peep 5. fio2 50%. GASTROINTESTINAL: soft. open abdomen with vac dressing in place. minimal amount of serosanguinous output. no guarding. MUSCULOSKELETAL: No obvious deformities. No clubbing or cyanosis. No edema. NEUROLOGICAL: intubated, sedated. RASS -2. deeply sedated to prevent evisceration. withdraws to pain x 4. Procedures: Laparotomy and bowel resection 12/24 Intubation and mechanical ventilation Assessment and Plan - Assessment and Plan Plan: Assessment: 87yF with perforated small bowel now POD 0 s/p emergent exploratory laparotomy, small bowel resection, left in discontinuity with open abdomen. iv antibiotics, vasopressors, iv fluid resuscitation. Critically ill. keep deeply sedated while abdomen open. Plan by systems: Neurologic: Acute metabolic encephalopathy Propofol and fentanyl for goal RASS -3 while abdomen is open Respiratory: Acute hypoxic and hypercarbic respiratory failure Vent bundle Head of bed elevated Nebs Wean FiO2 for goal SPO2 greater than 90% No weaning of mechanical ventilation until abdomen is closed ABG in the morning Cardiovascular: Septic shock Levophed for goal map greater than 65 IV fluid resuscitation which is ongoing trend lactates Renal: Acute kidney injury Likely secondary to septic shock and volume depletion in the setting of small bowel perforation Continue Hankins Frequent urine checks Daily BMP Maintenance fluid resuscitation -- Strict I/Os FEN/GI: Small bowel perforation Intra-abdominal sepsis Severe acute protein calorie malnutrition Hypocalcemia Hypomagnesemia Strict n.p.o. while in discontinuity ICU electrolyte protocol Antibiotics as described below Dr. Aldrich following Plan to go back to the OR on Friday Maintenance fluids D5 LR at 125 cc an hour Bolus with additional 1000 mL normal saline Heme/ID: Anemia secondary to acute blood loss Septic shock Intra-abdominal sepsis Status post 1 unit PRBCs in the OR. Recheck CBC Daily CBC DC Cipro and Flagyl p.o. Zosyn IV Follow-up cultures Repeat hemoglobin acceptable Endocrine: Hyperglycemia of critical illness -- SSI Prophylaxis: GI Prophylaxis PPI IV DVT Prophylaxis -- SCDs Subcu heparin Lines: 12/24 radial arterial line 12/24 left subclavian triple-lumen catheter 12/24 Hankins Overall impression: This woman remains critically ill following damage control surgery for spontaneous perforation of the bowel and peritonitis. She is hemodynamically unstable requiring vasopressor therapy and mechanical ventilation. The plan is for a second look operation tomorrow to see if bowel is suitable for reconnection. She remains in septic shock. Critical care time 45 minutes aside from invasive procedures.
[2017-12-25] MEDS: Propofol 1000 mg/100 ml Inj 1,000 MG/100 ML BOTTLE IV.CONT PRN ×2 (14:57→19:34)
[2017-12-25] MEDS ORDERED: Sod Chloride 0.9% Inj 1,000 ML IV.SIG ONE (15:00)
[2017-12-25] MEDS ORDERED: Sod Chloride 0.9% Inj 1,000 ML IV.SIG SCH (17:15)
[2017-12-25] MEDS: fentaNYL 10 mcg/mL Premix Drip 2,500 MCG/250 ML BAG IV.SIG PRN (19:35)
[2017-12-26] MEDS: Insulin NovoLOG Aspart Correctional Sugar Inj SQ SCH ×4 (00:10→18:20)
[2017-12-26] MEDS: Oral Hygiene Kit OROPHARYNG SCH ×4 (03:48→23:24)
[2017-12-26] MEDS: Heparin - SQ 10,000 UNITS/ML Vial SQ SCH (04:16)
[2017-12-26] MEDS: Piperacil/Tazo 4.5 GM Premix 4.5 GM/100 ML BAG IV.SIG SCH ×4 (05:06→23:07)
[2017-12-26 05:32] LABS: ABG Base Excess -4.8 mmol/L (-2-2); ABG PCO2 36 mmHg (38-42); ABG PO2 137 mmHg (61-120)
[2017-12-26 05:59] LABS: Hematocrit 31.5 % (35.0-46.0); Hemoglobin 10.4 gm/dL (11.6-15.3); Mean Corpuscular HGB Conc 32.9 % (32.0-36.0); Mean Corpuscular Hemoglobin 31.4 pg (27.0-34.0); Mean Corpuscular Volume 95.4 fL (80.0-100.0); Mean Platelet Volume 9.4 fL (7.0-11.0); Platelet Count 227 th/mm3 (150-450); Red Cell Distribution Width 16.7 % (11.6-17.2); White Blood Count 17.1 th/mm3 (4.0-11.0)
[2017-12-26 06:27] LABS: Calcium 6.9 mg/dL (8.5-10.1); Carbon Dioxide 20.7 meq/L (21.0-32.0); Magnesium 1.3 mg/dL (1.5-2.5); Phosphorus 1.4 mg/dL (2.5-4.9); Potassium 3.2 meq/L (3.5-5.1)
[2017-12-26 06:40] LABS: Total Protein 4.7 g/dL (6.4-8.2)
[2017-12-26] MEDS: Dextrose 5%/Lactated Ringer's 1,000 ML IV.CONT SCH ×3 (08:00→22:50)
[2017-12-26] MEDS: Potassium Phosphate Inj 30 MMOL in Sodium Chlor 0.9% Inj 250 ML IV.SIG PRN (10:17)
[2017-12-26] MEDS: Chlorhexidine 0.12% Oral Kit 15 ML UDC OROPHARYNG SCH ×2 (10:17→20:59)
[2017-12-26] MEDS: Magnesium Sulfate Inj 2 GM in Sodium Chlor 0.9% Inj 96 ML IV.SIG PRN (10:18)
--- NOTE | 2017-12-26 11:28 | P.PNCC ---
Subjective Subjective Remarks/Hospital Course: 87yF originally admitted for abdominal pain and now found to have perforated hollow viscus with intra-abdominal free air. taken to OR emergently by Dr. Aldrich for exploratory laparotomy where they found small bowel perforation. small bowel was resected and due to significantly poor patient tissue and gross contamination of the field, patient was left in discontinuity with an open abdomen. arrives to the ICU intubated, critically ill, on vasopressors, in shock. sedated. no additional information is available from the patient; ROS unobtainable. 12/25: She remains oliguric and septic. We are unable to separate her from mechanical ventilation and are still correcting her metabolic acidosis. Pre- albumin of 5 implicates poor preoperative nutrition. Description of bowel from surgery lens support for a severely debilitated state prior to surgery. She is presently hemodynamically unstable and oliguric. 12/26: Magnesium, phosphate, potassium all low; presently being replaced. Persistent septic pattern. Scheduled for second look operation later today, anticipate discouraging findings. Acid-base balance acceptable in gas exchange good. Update: Back from OR. Well perfused. Clear lungs. Base -6. Urine acceptable. Objective Vital Signs / I&O: Vital Signs 12/25/17 11:57 12/25/17 12:25 12/25/17 16:00 Temperature 97.7 F 93.7 F L Pulse Rate 87 59 L Respiratory Rate 16 15 15 Blood Pressure 171/73 H 142/56 H Pulse Oximetry 100 99 100 12/25/17 17:22 12/25/17 19:49 12/25/17 20:00 Temperature 97.2 F L Pulse Rate 65 Respiratory Rate 15 15 15 Blood Pressure 111/43 L Pulse Oximetry 99 99 12/25/17 20:58 12/26/17 00:00 12/26/17 00:29 Temperature 98.2 F Pulse Rate 65 Respiratory Rate 16 15 15 Blood Pressure 122/44 L Pulse Oximetry 12/26/17 03:30 12/26/17 04:00 12/26/17 07:29 Temperature 98.1 F Pulse Rate 78 Respiratory Rate 15 15 15 Blood Pressure 117/44 L Pulse Oximetry 98 95 Intake & Output 12/25/17 12/26/17 12/26/17 18:59 06:59 18:59 Intake Total 3150 / 3150 1700 / 1700 1100 / 1100 Output Total 575 / 575 600 / 600 Balance 2575 / 2575 1100 / 1100 1100 / 1100 Weight 73.2 kg Intake: IV 3150 / 3150 1700 / 1700 1100 / 1100 D5W/LR Inj 1,000 ML @ 125 mls/ 1900 / 1900 1000 / 1000 1000 / 1000 hr IV.CONT .Q8H [facility] Rx#: [id number] Diprivan 1000 mg/100 ml Inj 1, 50 / 50 100 / 100 000 mg In 100 ml @ 5 MCG/KG/MIN 2.049 mls/hr IV.CONT TITRATE [facility] Rx#:[id number] Levophed-Dextrose 4 mg/250 ml 250 / 250 Drip 4 mg In 250 ml @ 2 MCG/MIN 7.5 mls/hr IV.SIG TITRATE PRN Rx#:[id number] Zosyn 4.5 GM Premix 4.5 gm In 200 / 200 100 / 100 100 / 100 100 ml @ 200 mls/hr IV.SIG Q6H [facility] Rx#:[id number] NS Inj 1,000 ML @ As Directed 1000 / 1000 IV.SIG [facility] Rx#:[id number] fentaNYL 10 mcg/mL Premix Drip 250 / 250 2,500 mcg In 250 ml @ 50 MCG/HR 5 mls/hr IV.SIG TITRATE PRN Rx #:[id number] Output: Urine Amount (Catheter) 275 / 275 350 / 350 Indwelling Urethral Catheter 275 / 275 350 / 350 Gastric Drainage 0 / 0 0 / 0 Right Nare 0 / 0 0 / 0 Wound Vac Amount 300 / 300 250 / 250 Midline Abdomen 300 / 300 250 / 250 Other: Mode Setting Midline Abdomen Continuous Continuous Date of Last Bowel Movement 12/18/17 12/18/17 Result Diagrams: 12/26/17 05:20 12/26/17 05:20 Objective Remarks: Narrative: GENERAL: frail, elderly female, intubated, sedated, critically ill, on mechanical ventilation SKIN: very dry, cracked. HEENT: nc. at. perrl. mucous membranes dry. CARDIOVASCULAR: Tachycardic rate, regular rhythm. sinus. RESPIRATORY: prvc mode. equal chest rise. decreased breath sounds in bases. good bilateral air entry. GASTROINTESTINAL: soft. open abdomen with vac dressing in place. minimal amount of serosanguinous output. no guarding. MUSCULOSKELETAL: No obvious deformities. No clubbing or cyanosis. No edema. NEUROLOGICAL: intubated, sedated. RASS -2. deeply sedated to prevent evisceration. withdraws to pain x 4. Procedures: Laparotomy and bowel resection 12/24 Intubation and mechanical ventilation Assessment and Plan - Assessment and Plan Plan: Assessment: 87yF with perforated small bowel now POD 0 s/p emergent exploratory laparotomy, small bowel resection, left in discontinuity with open abdomen. iv antibiotics, vasopressors, iv fluid resuscitation. Critically ill. keep deeply sedated while abdomen open. Plan by systems: Neurologic: Acute metabolic encephalopathy Propofol and fentanyl for goal RASS -3 while abdomen is open Respiratory: Acute hypoxic and hypercarbic respiratory failure Vent bundle Head of bed elevated Nebs Wean FiO2 for goal SPO2 greater than 90% No weaning of mechanical ventilation until abdomen is closed Cardiovascular: Septic shock Levophed for goal map greater than 65 IV fluid resuscitation which is ongoing trend lactates Renal: Acute kidney injury Likely secondary to septic shock and volume depletion in the setting of small bowel perforation Continue Hankins Frequent urine checks Daily BMP Maintenance fluid resuscitation -- Strict I/Os FEN/GI: Small bowel perforation Intra-abdominal sepsis Severe acute protein calorie malnutrition Hypocalcemia Hypomagnesemia Strict n.p.o. while in discontinuity ICU electrolyte protocol Antibiotics as described below Dr. Aldrich following Plan to go back to the OR on Friday Maintenance fluids D5 LR at 125 cc an hour Bolus with additional 1000 mL normal saline this morning. Heme/ID: Anemia secondary to acute blood loss Septic shock Intra-abdominal sepsis Status post 1 unit PRBCs in the OR. Recheck CBC Daily CBC DC Cipro and Flagyl p.o. Zosyn IV Follow-up cultures Repeat hemoglobin acceptable Endocrine: Hyperglycemia of critical illness -- SSI Prophylaxis: GI Prophylaxis PPI IV DVT Prophylaxis -- SCDs Subcu heparin Lines: 12/24 radial arterial line 12/24 left subclavian triple-lumen catheter 12/24 Hankins Overall impression: This woman remains critically ill following damage control surgery for spontaneous perforation of the bowel and peritonitis. She is hemodynamically unstable requiring vasopressor therapy and mechanical ventilation. The plan is for a second look operation today to see if bowel is suitable for reconnection. She remains in septic shock and tenuous.. Critical care time 43 minutes aside from invasive procedures.
[2017-12-26] MEDS: Propofol 1000 mg/100 ml Inj 1,000 MG/100 ML BOTTLE IV.CONT PRN ×2 (12:19→20:59)
[2017-12-26] MEDS: fentaNYL 10 mcg/mL Premix Drip 2,500 MCG/250 ML BAG IV.SIG PRN (12:21)
--- NOTE | 2017-12-26 12:32 | P.PNPAL ---
Reason for Visit Reason for visit: a. To assist with evaluation and management of symptoms including: pain; dyspnea; encephalopathy b. To assist medical decision maker(s) with: better understanding of current medical conditions; weighing benefits/burdens of medical treatment options; making medical treatment decisions. Subjective Subjective/Interval History: No significant change overnight. Patient remains sedated, intubated, mechanically ventilated, requiring pressor support. Second look surgery is scheduled for later this afternoon. Critical care notes that magnesium, phosphate, and potassium all low and being replaced. "She remains in septic shock and tenuous." . Family/Friend Interactions: Spoke with patient's son -- Don -- in waiting area for 15 minutes. I emphasized how critically ill she is and she remains at great risk of dying in the hospital. I let him know that even if surgery were successful and she could survive to discharge, her chances of returning home to any level of independence were remote. We discussed resucitation status and particularly the benefits/burdens of chest compression and shock. We discussed the high likelihood of rib fracture. We discussed how if she needed chest compressions or shock, even if we were able to return to a sustainable rhythm, her chances of hospital survival were extremely low. He agreed, that once out of the tarun-operative period he would like her to be "ALTERNATE CODE" with no chest compressions and no shock. He will speak to his brother as well. Son has looked through the patient's records and has NOT found an advance directive. He has contacted her staff attorney's office to see if an advance directive is on file there. He is awaiting a response. . . Advance Directives Documented care wishes:: No written documentation of health care goals/preferences . Objective Vital Signs: Vital Signs 12/25/17 12:25 12/25/17 16:00 12/25/17 17:22 Temperature 93.7 F L Pulse Rate 59 L Respiratory Rate 15 15 15 Blood Pressure 142/56 H Pulse Oximetry 99 100 99 12/25/17 19:49 12/25/17 20:00 12/25/17 20:58 Temperature 97.2 F L Pulse Rate 65 Respiratory Rate 15 15 16 Blood Pressure 111/43 L Pulse Oximetry 99 12/26/17 00:00 12/26/17 00:29 12/26/17 03:30 Temperature 98.2 F Pulse Rate 65 Respiratory Rate 15 15 15 Blood Pressure 122/44 L Pulse Oximetry 98 12/26/17 04:00 12/26/17 07:29 12/26/17 11:21 Temperature 98.1 F Pulse Rate 78 Respiratory Rate 15 15 15 Blood Pressure 117/44 L Pulse Oximetry 95 95 Intake & Output 12/25/17 12/26/17 12/26/17 18:59 06:59 18:59 Intake Total 3150 / 3150 1700 / 1700 1450 / 1450 Output Total 575 / 575 600 / 600 Balance 2575 / 2575 1100 / 1100 1450 / 1450 Weight 73.2 kg Intake: IV 3150 / 3150 1700 / 1700 1450 / 1450 D5W/LR Inj 1,000 ML @ 125 mls/ 1900 / 1900 1000 / 1000 1000 / 1000 hr IV.CONT .Q8H [facility] Rx#: [id number] Diprivan 1000 mg/100 ml Inj 1, 50 / 50 100 / 100 100 / 100 000 mg In 100 ml @ 5 MCG/KG/MIN 2.049 mls/hr IV.CONT TITRATE PRN Rx#:[id number] Levophed-Dextrose 4 mg/250 ml 250 / 250 Drip 4 mg In 250 ml @ 2 MCG/MIN 7.5 mls/hr IV.SIG TITRATE PRN Rx#:[id number] Zosyn 4.5 GM Premix 4.5 gm In 200 / 200 100 / 100 100 / 100 100 ml @ 200 mls/hr IV.SIG Q6H [facility] Rx#:[id number] NS Inj 1,000 ML @ As Directed 1000 / 1000 IV.SIG BOLUS ONE Rx#:[id number] fentaNYL 10 mcg/mL Premix Drip 250 / 250 250 / 250 2,500 mcg In 250 ml @ 50 MCG/HR 5 mls/hr IV.SIG TITRATE PRN Rx #:[id number] Output: Urine Amount (Catheter) 275 / 275 350 / 350 Indwelling Urethral Catheter 275 / 275 350 / 350 Gastric Drainage 0 / 0 0 / 0 Right Nare 0 / 0 0 / 0 Wound Vac Amount 300 / 300 250 / 250 Midline Abdomen 300 / 300 250 / 250 Other: Mode Setting Midline Abdomen Continuous Continuous Date of Last Bowel Movement 12/18/17 12/18/17 Physical Exam: CONSTITUTIONAL/GENERAL: This is an adequately nourished patient; sedated; minimally responsive in an SICU bed TUBES/LINES/DRAINS: orotracheal tube; nasogastric tube; right radial arterial line; left subclavian central line; castillo catheter; soft wrist restraints; wound vac; SCDs. SKIN: No jaundice, rashes, or lesions. Open abdominal surgical wound. Skin temperature appropriate. Not diaphoretic. HEAD: Atraumatic. Normocephalic. EYES: Pupils equal and round. Extraocular motions could not be assessed. No scleral icterus. No injection or drainage. Fundi not examined. ENT: Unable to evaluate hearing due to sedation. Nose without bleeding or purulent drainage. Throat without visible erythema, exudates, masses, or lesions though difficult to evaluate due to intubations. NECK: Trachea midline. CARDIOVASCULAR: Regular rate and rhythm without murmurs, gallops, or rubs. No JVD. Peripheral pulses symmetric. RESPIRATORY/CHEST: Symmetric, unlabored respirations. Clear to auscultation. Breath sounds equal bilaterally. No wheezes, rales, or rhonchi. GASTROINTESTINAL: Open abdominal wound with wound vac. Cannot adequately assess for organomegaly/masses due to open wound and dressing. No bowel sounds heard. GENITOURINARY: Without palpable bladder distension. Castillo catheter in place. MUSCULOSKELETAL: Extremities without clubbing, cyanosis, or edema.SCDs in place. No mottling. LYMPHATICS: Not examined. NEUROLOGICAL: Sedated. Does not open eyes to voice/exam. Unable to follow commands. Withdraws to noxious stimuli in all extremities. PSYCHIATRIC: Unable to assess due to level of responsiveness. . Diagnostic Tests Laboratory: Laboratory Results - last 72 hr 12/17/17 12/23/17 12/23/17 17:30 17:34 19:56 WBC RBC Hgb Hct MCV MCH MCHC RDW Plt Count MPV Prelim Diff (Auto) Neut % (Auto) Lymph % (Auto) Valencia % (Auto) Eos % (Auto) Baso % (Auto) Neut # (Auto) Lymph # (Auto) Valencia # (Auto) Eos # (Auto) Baso # (Auto) WBC Differential Diff Scan Differential Comment Platelet Estimate Platelet Morphology RBC Morphology Puncture Site Patient Temperature O2 Saturation ABG pH ABG pCO2 ABG pO2 ABG HCO3 ABG O2 Content ABG Base Excess ABG Methemoglobin Hemoglobin Carboxyhemoglobin O2 Delivery Device Vent Setting Inspired O2 Critical Value Sodium Potassium Chloride Carbon Dioxide Anion Gap BUN Creatinine Estimated GFR POC Glucose 123 H 111 H Random Glucose Lactic Acid Calcium Prot Corrected Calcium Phosphorus Magnesium Total Protein Prealbumin TSH Free T4 Thyroxine (T4) Nasal Screen MRSA (PCR) E. histolytica IgG Ab Negative Blood Type Antibody Screen MTS Gel Crossmatch 12/24/17 12/24/17 12/24/17 05:14 11:37 20:12 WBC 7.8 RBC 2.01 L Hgb 6.3 L* Hct 19.5 L* MCV 97.2 MCH 31.6 MCHC 32.5 RDW 15.5 Plt Count 271 MPV 9.4 Prelim Diff (Auto) Slide review pending Neut % (Auto) 83.3 H Lymph % (Auto) 9.8 Valencia % (Auto) 6.2 Eos % (Auto) 0.3 Baso % (Auto) 0.4 Neut # (Auto) 6.5 Lymph # (Auto) 0.8 L Valencia # (Auto) 0.5 Eos # (Auto) 0.0 Baso # (Auto) 0.0 WBC Differential . Diff Scan Auto diff confirmed Differential Comment . Platelet Estimate Normal Platelet Morphology Normal RBC Morphology Normal Puncture Site Patient Temperature O2 Saturation ABG pH ABG pCO2 ABG pO2 ABG HCO3 ABG O2 Content ABG Base Excess ABG Methemoglobin Hemoglobin Carboxyhemoglobin O2 Delivery Device Vent Setting Inspired O2 Critical Value Sodium 139 Potassium 3.9 Chloride 108 H Carbon Dioxide 22.5 Anion Gap 9 BUN 9 Creatinine 0.98 Estimated GFR 65 L POC Glucose 90 Random Glucose 137 H Lactic Acid Calcium 6.9 L* Prot Corrected Calcium 7.9 L Phosphorus Magnesium 1.5 Total Protein 5.1 L D Prealbumin TSH Free T4 Thyroxine (T4) Nasal Screen MRSA (PCR) E. histolytica IgG Ab Blood Type Antibody Screen [facility] Gel Crossmatch 12/24/17 12/24/17 12/24/17 20:13 20:59 22:00 WBC RBC Hgb Hct MCV MCH MCHC RDW Plt Count MPV Prelim Diff (Auto) Neut % (Auto) Lymph % (Auto) Valencia % (Auto) Eos % (Auto) Baso % (Auto) Neut # (Auto) Lymph # (Auto) Valencia # (Auto) Eos # (Auto) Baso # (Auto) WBC Differential Diff Scan Differential Comment Platelet Estimate Platelet Morphology RBC Morphology Puncture Site O.r. Patient Temperature 98.6 O2 Saturation 96 ABG pH 7.31 L ABG pCO2 37 L ABG pO2 175 H ABG HCO3 18 L ABG O2 Content 8.8 L ABG Base Excess -6.9 L ABG Methemoglobin 1.9 Hemoglobin 6.2 L* Carboxyhemoglobin 1.4 O2 Delivery Device Vent Vent Setting O.r. Inspired O2 100 Critical Value Yes Sodium Potassium Chloride Carbon Dioxide Anion Gap BUN Creatinine Estimated GFR POC Glucose Random Glucose Lactic Acid Calcium Prot Corrected Calcium Phosphorus Magnesium Total Protein Prealbumin TSH Free T4 Thyroxine (T4) Nasal Screen MRSA (PCR) Mrsa detected E. histolytica IgG Ab Blood Type O Positive Antibody Screen Negative MTS Gel Crossmatch See Detail 12/24/17 12/25/17 12/25/17 23:29 00:26 00:27 WBC RBC Hgb Hct MCV MCH MCHC RDW Plt Count MPV Prelim Diff (Auto) Neut % (Auto) Lymph % (Auto) Valencia % (Auto) Eos % (Auto) Baso % (Auto) Neut # (Auto) Lymph # (Auto) Valencia # (Auto) Eos # (Auto) Baso # (Auto) WBC Differential Diff Scan Differential Comment Platelet Estimate Platelet Morphology RBC Morphology Puncture Site Art line Patient Temperature 98.6 O2 Saturation 96 ABG pH 7.46 H ABG pCO2 30 L ABG pO2 100 ABG HCO3 21 L ABG O2 Content 14.1 ABG Base Excess -2.3 L ABG Methemoglobin 1.2 Hemoglobin 10.3 L Carboxyhemoglobin 1.4 O2 Delivery Device Ventilator Vent Setting See comment Inspired O2 50 Critical Value No Sodium Potassium Chloride Carbon Dioxide Anion Gap BUN Creatinine Estimated GFR POC Glucose 78 90 Random Glucose Lactic Acid Calcium Prot Corrected Calcium Phosphorus Magnesium Total Protein Prealbumin TSH Free T4 Thyroxine (T4) Nasal Screen MRSA (PCR) E. histolytica IgG Ab Blood Type Antibody Screen MTS Gel Crossmatch 12/25/17 12/25/17 12/25/17 00:50 00:50 03:18 WBC RBC Hgb Hct MCV MCH MCHC RDW Plt Count MPV Prelim Diff (Auto) Neut % (Auto) Lymph % (Auto) Valencia % (Auto) Eos % (Auto) Baso % (Auto) Neut # (Auto) Lymph # (Auto) Valencia # (Auto) Eos # (Auto) Baso # (Auto) WBC Differential Diff Scan Differential Comment Platelet Estimate Platelet Morphology RBC Morphology Puncture Site Patient Temperature O2 Saturation ABG pH ABG pCO2 ABG pO2 ABG HCO3 ABG O2 Content ABG Base Excess ABG Methemoglobin Hemoglobin Carboxyhemoglobin O2 Delivery Device Vent Setting Inspired O2 Critical Value Sodium Potassium Chloride Carbon Dioxide Anion Gap BUN Creatinine Estimated GFR POC Glucose 135 H Random Glucose Lactic Acid 0.9 Calcium Prot Corrected Calcium Phosphorus Magnesium Total Protein Prealbumin 5 L TSH Free T4 Thyroxine (T4) Nasal Screen MRSA (PCR) E. histolytica IgG Ab Blood Type Antibody Screen MTS Gel Crossmatch 12/25/17 12/25/17 12/25/17 05:20 05:20 05:24 WBC 10.9 RBC 3.42 L Hgb 10.6 L D Hct 31.6 L MCV 92.3 D MCH 31.1 MCHC 33.7 RDW 16.4 Plt Count 244 MPV 8.9 Prelim Diff (Auto) Neut % (Auto) Lymph % (Auto) Valencia % (Auto) Eos % (Auto) Baso % (Auto) Neut # (Auto) Lymph # (Auto) Valencia # (Auto) Eos # (Auto) Baso # (Auto) WBC Differential Diff Scan Differential Comment Platelet Estimate Platelet Morphology RBC Morphology Puncture Site Patient Temperature O2 Saturation ABG pH ABG pCO2 ABG pO2 ABG HCO3 ABG O2 Content ABG Base Excess ABG Methemoglobin Hemoglobin Carboxyhemoglobin O2 Delivery Device Vent Setting Inspired O2 Critical Value Sodium 141 Potassium 3.6 Chloride 111 H Carbon Dioxide 21.6 Anion Gap 8 BUN 10 Creatinine 0.84 Estimated GFR 77 L POC Glucose 135 H Random Glucose 172 H Lactic Acid Calcium 7.4 L* Prot Corrected Calcium 8.8 D Phosphorus 1.4 L Magnesium 1.6 Total Protein 4.6 L Prealbumin TSH 5.370 H Free T4 1.19 Thyroxine (T4) 7.7 Nasal Screen MRSA (PCR) E. histolytica IgG Ab Blood Type Antibody Screen MTS Gel Crossmatch 12/25/17 12/25/17 12/25/17 05:42 11:51 13:25 WBC RBC Hgb Hct MCV MCH MCHC RDW Plt Count MPV Prelim Diff (Auto) Neut % (Auto) Lymph % (Auto) Valencia % (Auto) Eos % (Auto) Baso % (Auto) Neut # (Auto) Lymph # (Auto) Valencia # (Auto) Eos # (Auto) Baso # (Auto) WBC Differential Diff Scan Differential Comment Platelet Estimate Platelet Morphology RBC Morphology Puncture Site Art line Patient Temperature 98.6 O2 Saturation 97 ABG pH 7.48 H ABG pCO2 27 L ABG pO2 145 H ABG HCO3 20 L ABG O2 Content 14.1 ABG Base Excess -2.7 L ABG Methemoglobin 1.3 Hemoglobin 10.1 L Carboxyhemoglobin 1.4 O2 Delivery Device Ventilator Vent Setting See comment Inspired O2 50 Critical Value No Sodium Potassium Chloride Carbon Dioxide Anion Gap BUN Creatinine Estimated GFR POC Glucose 141 H Random Glucose Lactic Acid Calcium Prot Corrected Calcium Phosphorus Magnesium Total Protein Prealbumin TSH Free T4 Thyroxine (T4) Nasal Screen MRSA (PCR) E. histolytica IgG Ab Blood Type Antibody Screen MTS Gel Crossmatch See Detail 12/25/17 12/25/17 12/26/17 18:05 23:24 05:09 WBC RBC Hgb Hct MCV MCH MCHC RDW Plt Count MPV Prelim Diff (Auto) Neut % (Auto) Lymph % (Auto) Valencia % (Auto) Eos % (Auto) Baso % (Auto) Neut # (Auto) Lymph # (Auto) [place] # (Auto) Eos # (Auto) Baso # (Auto) WBC Differential Diff Scan Differential Comment Platelet Estimate Platelet Morphology RBC Morphology Puncture Site Patient Temperature O2 Saturation ABG pH ABG pCO2 ABG pO2 ABG HCO3 ABG O2 Content ABG Base Excess ABG Methemoglobin Hemoglobin Carboxyhemoglobin O2 Delivery Device Vent Setting Inspired O2 Critical Value Sodium Potassium Chloride Carbon Dioxide Anion Gap BUN Creatinine Estimated GFR POC Glucose 232 H 196 H 141 H Random Glucose Lactic Acid Calcium Prot Corrected Calcium Phosphorus Magnesium Total Protein Prealbumin TSH Free T4 Thyroxine (T4) Nasal Screen MRSA (PCR) E. histolytica IgG Ab Blood Type Antibody Screen MTS Gel Crossmatch 12/26/17 12/26/17 12/26/17 05:19 05:20 05:20 WBC 17.1 H D RBC 3.30 L Hgb 10.4 L Hct 31.5 L MCV 95.4 MCH 31.4 MCHC 32.9 RDW 16.7 Plt Count 227 MPV 9.4 Prelim Diff (Auto) Neut % (Auto) Lymph % (Auto) Valencia % (Auto) Eos % (Auto) Baso % (Auto) Neut # (Auto) Lymph # (Auto) [place] # (Auto) Eos # (Auto) Baso # (Auto) WBC Differential Diff Scan Differential Comment Platelet Estimate Platelet Morphology RBC Morphology Puncture Site Art line Patient Temperature 98.6 O2 Saturation 97 ABG pH 7.36 L ABG pCO2 36 L ABG pO2 137 H ABG HCO3 20 L ABG O2 Content 14.4 ABG Base Excess -4.8 L ABG Methemoglobin 1.2 Hemoglobin 10.4 L Carboxyhemoglobin 1.2 O2 Delivery Device Ventilator Vent Setting See comment Inspired O2 40 Critical Value No Sodium 142 Potassium 3.2 L Chloride 112 H Carbon Dioxide 20.7 L Anion Gap 9 BUN 8 Creatinine 0.82 Estimated GFR 79 L POC Glucose Random Glucose 123 H Lactic Acid Calcium 6.9 L* Prot Corrected Calcium 8.2 L Phosphorus 1.4 L Magnesium 1.3 L Total Protein 4.7 L Prealbumin TSH Free T4 Thyroxine (T4) Nasal Screen MRSA (PCR) E. histolytica IgG Ab Blood Type Antibody Screen MTS Gel Crossmatch Result Diagrams: 12/26/17 05:20 12/26/17 05:20 Microbiology: Microbiology 12/25/17 02:59 Aerobic Blood Culture - Preliminary Blood - Peripheral No growth in 1 day Anaerobic Blood Culture - Preliminary No growth in 1 day 12/25/17 00:50 Aerobic Blood Culture - Preliminary Blood - Peripheral No growth in 1 day Anaerobic Blood Culture - Preliminary No growth in 1 day Imaging: Abdomen X-Ray 12/24/17 00:00 CONCLUSION: Dilated small bowel with collapse of the colon most characteristic of small bowel obstructive process. Calcific atherosclerotic vascular disease Abdomen/Pelvis CT 12/24/17 00:00 CONCLUSION: 1. Small to moderate amount of free air of concern for ruptured viscus. 2. Abnormal bowel gas pattern with dilated loops of small bowel and air-fluid levels most characteristic of a small bowel obstruction. 3. Moderate diverticulosis present. These findings were called to Dr. Aldrich at 1839 hours. Chest X-Ray 12/24/17 23:04 CONCLUSION: Left central line tip in superior vena cava without pneumothorax. Bilateral mostly basilar airspace disease and small to moderate-sized pleural effusions present. Procedures: Intubation/mechanical ventilation Left subclavian central line placement Right radial arterial line placement Exploratory lap --> resection of terminal ileum/appendectomy . Assessment and Plan - Disease Oriented Problem List (1) Ischemic bowel syndrome (2) Septic shock (3) Sepsis (4) Anemia (5) Hypoalbuminemia Pertinent Non-Medical Issues: Psychosocial: Originally from [place]. Moved to [facility] around 1991. High school graduate. 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 Two sons -- Yves and Don -- live locally and check in on her frequently. Spiritual: Christian and spirituality have not played a large role in her life. She does not belong to any local max group. She does pray, however. Legal: No known advanced directive. Without a designated healthcare surrogate, her sons would be the joint proxy healthcare decision makers. Ethical issues impacting care: Patient is incapacitated to make her own healthcare decisions. It is currently unknown if she will regain capacity to do so. Important Contacts: Don Johnson (son and co-proxy) [phone] Yves Johnson (son and co-proxy) [phone] . Prognosis: Ms. Johnson is critically ill. She was in remarkably good shape for her age until about 2-3 weeks ago when her GI problems began, but she has gone into major surgery undernourished and post-operatively she is now hypotensive, bradycardic , and hypothermic. She is scheduled for additional surgery on 12/26/17. In spite of her relatively high level of functioning just weeks ago, she remains an grave risk of not surviving the hospitalization. Should she survive, the odds are that she would not get home again and would be either in a nursing facility or the hospital until her . At such time that patient or family feels that comfort measures only would be most in line with her goals, she would be eligible for hospice services. . Code Status: Full Code Plan: == Code Status: FULL CODE -- per conversation with devon Ochoa on 12/25/17, patient had a quality of life she would want to fight hard to preserve and would want an attempted resuscitation. Per conversation with Don on 12/26/17 , once patient is out of the perioperative period, he would want code status changed to ALTERNATE CODE with no chest compressions and no shock -- he wants to confirm with his brother. == Goals of medical treatment: Per son Don, patient would want aggressive care at this time except for code issues noted above. Should she not do well after surgery and doctors did not think there is a reasonable chance of returning her to life with some quality, she would not want to be maintained on machines. == Medical Decision making: There is no known written designation of healthcare surrogate. Per [place] statutes hierarchy, proxy medical decision making would fall jointly to her two sons--Don and Yves. == Symptoms * Pain: There were no known prehospitalization pain syndromes. Current sources of pain include her recent abdominal surgery; orotracheal and nasogastric intubations; vascular access lines; prolonged bedbound status; Castillo catheter. Patient currently with propofol and fentanyl on board which appear to be adequately addressing these. No further recommendations at this time. * Dyspnea: No known underlying lung disease. Current respiratory issues probably secondary to shock. Dyspnea being managed via intubation and mechanical ventilation. No further recommendations at this time. * Encephalopathy: No known underlying dementia. Encephalopathy is probably multifactorial with sepsis playing a large role. If we are able to get the patient through another surgery and treat her medical issues it is anticipated that encephalopathy will improve. == Son has not been able to find any advance directive in patient's papers at home. He is waiting for a call back from her staff attorney to see she has an advance directive on file with him. == Spoke personally with Dr. Pollard and bedside nurse regarding son's desire to have patient's code status change to "no chest compressions / no shock" once she is through the immediate tarun-operative period and once he confers with his brother who is co-proxy. == At anytime goals of care should transition to "comfort measures only," patient would be eligible for hospice services. == Palliative care will continue to follow to assist with symptom management and to further clarify goals of medical treatment as the clinical course evolves. . Time Spent Total Floor Time (mins): 40 (total time included chart review; patient exam; collaboration with bedside nurse; above referenced discussion with son; in- person discussion with Dr. Pollard) Face to Face Time (mins): 10 >50% Time in Counseling or Coordination of Care: Yes
[2017-12-26] MEDS ORDERED: Phenylephrine/NS 1000 MCG/10ML Syringe IV.PUSH ONE (14:03)
[2017-12-26 14:32] LABS: ABG Base Excess -6.1 mmol/L (-2-2); ABG PCO2 36 mmHg (38-42); ABG PO2 227 mmHG (61-120)
--- NOTE | 2017-12-26 20:29 | MP ---
cc: Owen Aldrich MD DATE OF OPERATION: 12/26/2017 PREOPERATIVE DIAGNOSIS: Open abdomen from previous surgery from free air. POSTOPERATIVE DIAGNOSES: 1. Open abdomen from previous surgery from free air. 2. 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 3. Dilated gallbladder. 4. Ileostomy. PROCEDURE PERFORMED: 1. Removal of ABThera vacuum temporary abdominal closure device. 2. Abdominal exploration. 3. Small bowel resection. 4. Resection of cecum and terminal ileum. 5. Primary anastomosis of ileum to ascending colon, which the tissue was compromised and the anastomosis failed. 6. Resection of anastomosis. 7. Placement of ileostomy. 8. Cholecystectomy. 9. Placement of temporary abdominal closure device. ANESTHESIA: General. SURGEON: Owen Aldrich MD INDICATIONS: This is an unfortunate 87-year-old female who came into the hospital and was here for a while and had some free air. Operation 2 days ago showed a compromised distal bowel. Pathology is still pending where the bowel was very tenuous and simply fell apart. She was brought back to the operating room to see the viability of her small bowel and to see if an anastomosis could be performed. Intraoperatively, it was found that initially she had a good blood supply. I thought the bowel would able to tolerate an anastomosis, but this failed and so an ileostomy was brought out. Her gallbladder was massively dilated compared to a couple days ago and there was some question if she had biliary colic, so I performed a cholecystectomy. DESCRIPTION OF PROCEDURE: The patient was taken to the operating room in supine position. She was already intubated and sedated. The VAC device was removed. Her abdomen was prepped with Betadine. We explored the abdomen. The liver was smooth. The gallbladder was even more distended than it was 2 days ago. There was an NG tube in the stomach. Her small bowel was still fairly dilated. With simply gentle manipulation of the bowel to milk the contents into the stomach, the proximal jejunum serosa tears in 2 separate areas. It was closed with a silk stitch. There was no spillage. After this was done, I checked the distal bowel. The blood supply was somewhat compromised and for this reason, the distal ileum was removed. I checked the blood supply with the Doppler device and there appeared to be adequate blood flow. She had some unusual changes in her small bowel in really in the entirety of the small bowel where the bowel would turn white and then pink up with contractions and peristalsis, becomes thickened and then thin. It did not look like typical ischemia and may be some type of vasculitis. This was throughout the small bowel. Initially, it was decided to see if a [id number] functional end-to-end anastomosis could be made from the ileum to the ascending colon. The distal ileum and cecum were removed with the GI stapling device. Vessels were tied with 0 Vicryl. We then readied the anastomosis, taking the GI stapling device into the small bowel and to the ascending colon along the tinea and firing the stapler. It appeared that we had good closure. The remaining enterotomy was closed with a TA 30. However, just with gentle milking of fluid in the terminal ileum or the small bowel and through the anastomosis, the staple line fell apart. For this reason, the staple line was removed with the GI stapling device and it was decided she could not have an anastomosis. For this reason, an ileostomy was brought out. The remaining staple lines were made with the GI stapling device. I brought the ileostomy out through a separate stab wound incision in the right lower quadrant with adequate blood supply. The fascia was cut and the ileostomy was brought out. Because of the dilatation of the gallbladder and it appeared that she had cholecystitis as well, the gallbladder was grasped superiorly and laterally and retracted inferiorly. Using the electrocautery device, we dissected this off the liver and went down to the cystic artery and cystic duct. Both of these were doubly ligated with Vicryl suture. There were small stones in the gallbladder that could be palpated and that was seen on the previous images. The gallbladder was then passed off the field. We then irrigated copiously. The remainder of the ascending colon, transverse colon, descending colon did not have much in the colon. For this reason, I did not bring out a mucous fistula as there was not much contents within the bowel. We then just placed the ABThera temporary abdominal wound closure device in the abdomen again and applied it to the suction device. I then matured the ileostomy in the right lower quadrant with 3-0 Vicryl sutures. Discussed the intraoperative findings with the son, who was present in the postoperative period. The plan is to take her back to the operating room on Friday and put a gastrostomy tube in, close her abdomen and reevaluate the rest of her bowel. MD MARGO Hernandez/demetrius , 04:57 PM , 05:10 PM
[2017-12-27] MEDS: Insulin NovoLOG Aspart Correctional Sugar Inj SQ SCH ×5 (00:22→23:03)
[2017-12-27] MEDS: Propofol 1000 mg/100 ml Inj 1,000 MG/100 ML BOTTLE IV.CONT PRN ×2 (02:10→18:05)
[2017-12-27] MEDS: Oral Hygiene Kit OROPHARYNG SCH ×4 (05:05→23:02)
[2017-12-27] MEDS: Piperacil/Tazo 4.5 GM Premix 4.5 GM/100 ML BAG IV.SIG SCH ×4 (05:05→23:03)
[2017-12-27] MEDS: fentaNYL 10 mcg/mL Premix Drip 2,500 MCG/250 ML BAG IV.SIG PRN (05:06)
[2017-12-27 06:17] LABS: Hematocrit 31.7 % (35.0-46.0); Hemoglobin 10.5 gm/dL (11.6-15.3); Mean Corpuscular HGB Conc 33.1 % (32.0-36.0); Mean Corpuscular Volume 93.5 fL (80.0-100.0); Mean Platelet Volume 9.3 fL (7.0-11.0); Platelet Count 169 th/mm3 (150-450); Red Blood Count 3.39 mil/mm3 (4.00-5.30); Red Cell Distribution Width 16.6 % (11.6-17.2); White Blood Count 20.3 th/mm3 (4.0-11.0)
[2017-12-27 06:17] LABS: ABG PCO2 32 mmHg (38-42); ABG PO2 101 mmHg (61-120)
[2017-12-27 06:50] LABS: Calcium 6.8 mg/dL (8.5-10.1); Carbon Dioxide 21.4 meq/L (21.0-32.0); Magnesium 1.7 mg/dL (1.5-2.5); Phosphorus 2.8 mg/dL (2.5-4.9); Potassium 3.4 meq/L (3.5-5.1)
[2017-12-27] MEDS: Dextrose 5%/Lactated Ringer's 1,000 ML IV.CONT SCH ×3 (06:55→23:02)
[2017-12-27 07:27] LABS: Total Protein 3.9 g/dL (6.4-8.2)
--- NOTE | 2017-12-27 08:08 | P.PNCC ---
Subjective Subjective Remarks/Hospital Course: 87yF originally admitted for abdominal pain and now found to have perforated hollow viscus with intra-abdominal free air. taken to OR emergently by Dr. Aldrich for exploratory laparotomy where they found small bowel perforation. small bowel was resected and due to significantly poor patient tissue and gross contamination of the field, patient was left in discontinuity with an open abdomen. arrives to the ICU intubated, critically ill, on vasopressors, in shock. sedated. no additional information is available from the patient; ROS unobtainable. 12/25: She remains oliguric and septic. We are unable to separate her from mechanical ventilation and are still correcting her metabolic acidosis. Pre- albumin of 5 implicates poor preoperative nutrition. Description of bowel from surgery lens support for a severely debilitated state prior to surgery. She is presently hemodynamically unstable and oliguric. 12/26: Magnesium, phosphate, potassium all low; presently being replaced. Persistent septic pattern. Scheduled for second look operation later today, anticipate discouraging findings. Acid-base balance acceptable in gas exchange good. Update: Back from OR. Well perfused. Clear lungs. Base -6. Urine acceptable. 12/27: Back from surgery yesterday with end ileostomy fashioned. Abdomen remains open with VAC dressing in place. Acid-base balance modestly improved and acceptable. Urine output acceptable and renal function remains close to normal. She remains hemodynamically unstable and rate wiring levo fed at 9 mcg/ min; typical of the smoldering septic picture. Objective Vital Signs / I&O: Vital Signs 12/26/17 11:21 12/26/17 12:00 12/26/17 14:06 Temperature 97.7 F Pulse Rate 84 Respiratory Rate 15 15 Blood Pressure 105/45 L Pulse Oximetry 95 94 L 100 12/26/17 16:30 12/26/17 16:55 12/26/17 20:00 Temperature 94.8 F L 95.5 F L Pulse Rate 85 90 Respiratory Rate 15 15 15 Blood Pressure 103/51 L 112/54 L Pulse Oximetry 98 98 99 12/26/17 20:28 12/27/17 00:00 12/27/17 00:10 Temperature 98.6 F Pulse Rate 106 H Respiratory Rate 15 15 15 Blood Pressure 92/48 L Pulse Oximetry 99 98 98 12/27/17 03:22 12/27/17 04:00 Temperature 99.0 F Pulse Rate 116 H Respiratory Rate 15 15 Blood Pressure 94/48 L Pulse Oximetry 99 99 Intake & Output 12/26/17 12/27/17 12/27/17 18:59 06:59 18:59 Intake Total 4010 / 4010 3250 / 3250 Output Total 1800 / 1800 1075 / 1075 Balance 2210 / 2210 2175 / 2175 Weight 83.7 kg Intake: IV 2510 / 2510 3250 / 3250 D5W/LR Inj 1,000 ML @ 125 mls/ 1600 / 1600 2000 / 2000 hr IV.CONT .Q8H [facility] Rx#: [id number] Diprivan 1000 mg/100 ml Inj 1, 100 / 100 200 / 200 000 mg In 100 ml @ 5 MCG/KG/MIN 2.049 mls/hr IV.CONT TITRATE PRN Rx#:[id number] Magnesium Sulfate Inj 2 GM In 100 / 100 NS Inj 96 ML @ 50 mls/hr IV.SIG UNSCH PRN Rx#:[id number] Levophed-Dextrose 4 mg/250 ml 500 / 500 Drip 4 mg In 250 ml @ 2 MCG/MIN 7.5 mls/hr IV.SIG TITRATE PRN Rx#:[id number] Zosyn 4.5 GM Premix 4.5 gm In 200 / 200 300 / 300 100 ml @ 200 mls/hr IV.SIG Q6H [facility] Rx#:[id number] Potassium Phosphate Inj 30 MMOL 260 / 260 In NS Inj 250 ML @ 42 mls/hr IV.SIG UNSCH PRN Rx#:[id number] fentaNYL 10 mcg/mL Premix Drip 250 / 250 250 / 250 2,500 mcg In 250 ml @ 50 MCG/HR 5 mls/hr IV.SIG TITRATE PRN Rx #:[id number] Anesthesia Amount 1500 / 1500 Output: Estimated Blood Loss 75 / 75 Urine Amount (Catheter) 75 / 75 575 / 575 Indwelling Urethral Catheter 75 / 75 575 / 575 Stool Amount (Stoma) 0 / 0 Right Lower Abdomen 0 / 0 Gastric Drainage 1600 / 1600 100 / 100 Nasogastric Tube 1600 / 1600 100 / 100 Right Nare 0 / 0 Wound Vac Amount 50 / 50 400 / 400 Midline Abdomen 50 / 50 400 / 400 Other: Mode Setting Midline Abdomen Continuous Continuous Date of Last Bowel Movement 12/18/17 12/18/17 Result Diagrams: 12/27/17 06:00 12/27/17 06:00 Objective Remarks: Narrative: GENERAL: Frail, elderly female, intubated, sedated, critically ill, on mechanical ventilation SKIN: Well-perfused. HEENT: Oral tracheal intubation, NG tube in place. Perrl. mucous membranes dry. CARDIOVASCULAR: Tachycardic rate, regular rhythm. sinus. RESPIRATORY: Volume control ventilation. equal chest rise. decreased breath sounds in bases. good bilateral air entry. GASTROINTESTINAL: Soft. open abdomen with vac dressing in place. minimal amount of serosanguinous output. no guarding. MUSCULOSKELETAL: No obvious deformities. No clubbing or cyanosis. No edema. NEUROLOGICAL: Intubated, sedated. RASS -2. deeply sedated to prevent evisceration. withdraws to pain x 4. Procedures: Laparotomy and bowel resection 12/24 Intubation and mechanical ventilation Assessment and Plan - Assessment and Plan Plan: Assessment: 87yF with perforated small bowel now POD 0 s/p emergent exploratory laparotomy, small bowel resection, left in discontinuity with open abdomen. iv antibiotics, vasopressors, iv fluid resuscitation. Critically ill. keep deeply sedated while abdomen open. Plan by systems: Neurologic: Acute metabolic encephalopathy Propofol and fentanyl for goal RASS -3 while abdomen is open Respiratory: Acute hypoxic and hypercarbic respiratory failure Vent bundle Head of bed elevated Nebs Wean FiO2 for goal SPO2 greater than 90% No weaning of mechanical ventilation until abdomen is closed Can start spontaneous breathing trials with good pressure support to prevent excessive abdominal wall activity. Cardiovascular: Septic shock Levophed for goal map greater than 65 IV fluid resuscitation which is ongoing trend lactates Remains at 9 mcg/min. Renal: Acute kidney injury Likely secondary to septic shock and volume depletion in the setting of small bowel perforation Continue Hankins Frequent urine checks Daily BMP Maintenance fluid resuscitation -- Strict I/Os Improving. FEN/GI: Small bowel perforation Intra-abdominal sepsis Severe acute protein calorie malnutrition Hypocalcemia Hypomagnesemia Strict n.p.o. while in discontinuity ICU electrolyte protocol Antibiotics as described below Dr. Aldrich following Plan to go back to the OR on Friday Maintenance fluids D5 LR at 125 cc an hour Bolus with additional 1000 mL normal saline this morning. Heme/ID: Anemia secondary to acute blood loss Septic shock Intra-abdominal sepsis Status post 1 unit PRBCs in the OR. Recheck CBC Daily CBC DC Cipro and Flagyl p.o. Zosyn IV Follow-up cultures Repeat hemoglobin acceptable Endocrine: Hyperglycemia of critical illness -- SSI -Prone to hypoglycemia if sugar not added to maintenance IV fluids. Glucose 29 last night after return from OR. Prophylaxis: GI Prophylaxis PPI IV DVT Prophylaxis -- SCDs Subcu heparin Lines: 12/24 radial arterial line 12/24 left subclavian triple-lumen catheter 12/24 Hankins Overall impression: This woman remains critically ill following damage control surgery for spontaneous perforation of the bowel and peritonitis. She returned to the OR on 12/26 for ileostomy construction. The abdomen remains open and covered with a dressing. She is hemodynamically unstable requiring vasopressor therapy and mechanical ventilation. She remains in septic shock and tenuous.. Critical care time 48 minutes aside from invasive procedures.
[2017-12-27] MEDS: Chlorhexidine 0.12% Oral Kit 15 ML UDC OROPHARYNG SCH ×2 (09:24→20:03)
[2017-12-27] MEDS: Potassium Chlor 40 mEq Premix 40 MEQ/100 ML PIGGYBACK IV.SIG PRN (13:56)
--- NOTE | 2017-12-27 20:19 | P.PNGS ---
Subjective Patient reports: no new complaints Physical Exam Vital signs: Vital Signs 12/26/17 20:28 12/27/17 00:00 12/27/17 00:10 Temperature 98.6 F Pulse Rate 106 H Respiratory Rate 15 15 15 Blood Pressure 92/48 L Pulse Oximetry 99 98 98 12/27/17 03:22 12/27/17 04:00 12/27/17 08:00 Temperature 99.0 F 98.8 F Pulse Rate 116 H 105 H Respiratory Rate 15 15 15 Blood Pressure 94/48 L 113/50 L Pulse Oximetry 99 99 98 12/27/17 08:23 12/27/17 12:00 12/27/17 12:32 Temperature 98.8 F Pulse Rate 105 H Respiratory Rate 15 15 15 Blood Pressure 119/56 L Pulse Oximetry 97 98 98 12/27/17 16:00 12/27/17 16:14 Temperature 98.6 F Pulse Rate 110 H Respiratory Rate 15 15 Blood Pressure 122/60 Pulse Oximetry 99 99 Intake & Output 12/27/17 12/27/17 12/28/17 06:59 18:59 06:59 Intake Total 3250 / 3250 1650 / 1650 250 / 250 Output Total 1075 / 1075 1125 / 1125 Balance 2175 / 2175 525 / 525 250 / 250 Weight 83.7 kg Intake: IV 3250 / 3250 1650 / 1650 250 / 250 D5W/LR Inj 1,000 ML @ 125 mls/ 2000 / 2000 1000 / 1000 hr IV.CONT .Q8H [facility] Rx#: [id number] Diprivan 1000 mg/100 ml Inj 1, 200 / 200 100 / 100 000 mg In 100 ml @ 5 MCG/KG/MIN 2.049 mls/hr IV.CONT TITRATE PRN Rx#:[id number] Levophed-Dextrose 4 mg/250 ml 500 / 500 250 / 250 250 / 250 Drip 4 mg In 250 ml @ 2 MCG/MIN 7.5 mls/hr IV.SIG TITRATE PRN Rx#:[id number] Zosyn 4.5 GM Premix 4.5 gm In 300 / 300 200 / 200 100 ml @ 200 mls/hr IV.SIG Q6H [facility] Rx#:[id number] KCl 40 mEq Premix Inj 40 meq In 100 / 100 100 ml @ 25 mls/hr IV.SIG UNSCH PRN Rx#:[id number] fentaNYL 10 mcg/mL Premix Drip 250 / 250 2,500 mcg In 250 ml @ 50 MCG/HR 5 mls/hr IV.SIG TITRATE PRN Rx #:[id number] Output: Urine Amount (Catheter) 575 / 575 450 / 450 Indwelling Urethral Catheter 575 / 575 450 / 450 Stool Amount (Stoma) 0 / 0 200 / 200 Right Lower Abdomen 0 / 0 200 / 200 Gastric Drainage 100 / 100 125 / 125 Nasogastric Tube 100 / 100 Right Nare 0 / 0 125 / 125 Wound Vac Amount 400 / 400 350 / 350 Midline Abdomen 400 / 400 350 / 350 Other: Mode Setting Midline Abdomen Continuous Continuous Date of Last Bowel Movement 12/18/17 12/18/17 - Constitutional no acute distress Comments: on vent - Routine Abdominal Exam Comments: ostomy pink, viable with some bile output - Urinary Catheter Management Indwelling Urethral Catheter Cath placed during this visit: yes Reason for continuing: Hourly intake/output Insertion date: 12/24/17 Insertion time: 20:15 Assessment and Plan - Assessment (1) Acute abdomen Code(s): R10.0 - Acute abdomen Status: Acute (2) Free intraperitoneal air Code(s): K66.8 - Other specified disorders of peritoneum Status: Acute Plan: 87 year old female s/p lap converted to ex lap; resection of nonviable small bowel, distal ileum; appendectomy; placement of AbThera Wound Vac -Plan for return to OR Friday for abd closure and gtube - ostomy and wound stable (3) Enteritis Code(s): K52.9 - Noninfective gastroenteritis and colitis, unspecified Status : Acute (4) History of esophageal reflux Code(s): Z87.19 - Personal history of other diseases of the digestive system Status: Chronic (5) Elevated lactic acid level Code(s): R79.89 - Other specified abnormal findings of blood chemistry Status : Acute (6) Dehydration Code(s): E86.0 - Dehydration Status: Acute (7) Sepsis Code(s): A41.9 - Sepsis, unspecified organism Status: Acute (8) Hypomagnesemia Code(s): E83.42 - Hypomagnesemia Status: Acute (9) Hypertension Code(s): I10 - Essential (primary) hypertension Status: Chronic (7) Sepsis Qualifiers: Sepsis type: sepsis due to unspecified organism Qualified Code(s): A41.9 - Sepsis, unspecified organism (9) Hypertension Qualifiers: Hypertension type: essential hypertension Qualified Code(s): I10 - Essential (primary) hypertension
[2017-12-28] MEDS: Propofol 1000 mg/100 ml Inj 1,000 MG/100 ML BOTTLE IV.CONT PRN ×3 (02:25→20:32)
[2017-12-28 05:29] LABS: Hematocrit 28.8 % (35.0-46.0); Hemoglobin 9.4 gm/dL (11.6-15.3); Mean Corpuscular HGB Conc 32.7 % (32.0-36.0); Mean Corpuscular Hemoglobin 30.7 pg (27.0-34.0); Mean Corpuscular Volume 94.1 fL (80.0-100.0); Mean Platelet Volume 9.4 fL (7.0-11.0); Platelet Count 125 th/mm3 (150-450); Red Blood Count 3.06 mil/mm3 (4.00-5.30); Red Cell Distribution Width 15.9 % (11.6-17.2)
[2017-12-28] MEDS: Piperacil/Tazo 4.5 GM Premix 4.5 GM/100 ML BAG IV.SIG SCH ×3 (05:31→18:24)
[2017-12-28] MEDS: Oral Hygiene Kit OROPHARYNG SCH ×2 (05:31→17:34)
[2017-12-28 05:54] LABS: Calcium 6.5 mg/dL (8.5-10.1); Carbon Dioxide 21.7 meq/L (21.0-32.0); Magnesium 1.3 mg/dL (1.5-2.5); Phosphorus 2.4 mg/dL (2.5-4.9); Potassium 3.4 meq/L (3.5-5.1)
[2017-12-28 06:05] LABS: Total Protein 3.6 g/dL (6.4-8.2)
[2017-12-28] MEDS: Insulin NovoLOG Aspart Correctional Sugar Inj SQ SCH (06:26)
[2017-12-28] MEDS: Dextrose 5%/Lactated Ringer's 1,000 ML IV.CONT SCH ×2 (06:39→18:22)
[2017-12-28] MEDS: Potassium Phosphate Inj 30 MMOL in Sodium Chlor 0.9% Inj 250 ML IV.SIG PRN (08:40)
--- NOTE | 2017-12-28 08:44 | P.PNCC ---
Subjective Subjective Remarks/Hospital Course: 87yF originally admitted for abdominal pain and now found to have perforated hollow viscus with intra-abdominal free air. taken to OR emergently by Dr. Aldrich for exploratory laparotomy where they found small bowel perforation. small bowel was resected and due to significantly poor patient tissue and gross contamination of the field, patient was left in discontinuity with an open abdomen. arrives to the ICU intubated, critically ill, on vasopressors, in shock. sedated. no additional information is available from the patient; ROS unobtainable. 12/25: She remains oliguric and septic. We are unable to separate her from mechanical ventilation and are still correcting her metabolic acidosis. Pre- albumin of 5 implicates poor preoperative nutrition. Description of bowel from surgery lens support for a severely debilitated state prior to surgery. She is presently hemodynamically unstable and oliguric. 12/26: Magnesium, phosphate, potassium all low; presently being replaced. Persistent septic pattern. Scheduled for second look operation later today, anticipate discouraging findings. Acid-base balance acceptable in gas exchange good. Update: Back from OR. Well perfused. Clear lungs. Base -6. Urine acceptable. 12/27: Back from surgery yesterday with end ileostomy fashioned. Abdomen remains open with VAC dressing in place. Acid-base balance modestly improved and acceptable. Urine output acceptable and renal function remains close to normal. She remains hemodynamically unstable and rate wiring levo fed at 9 mcg/ min; typical of the smoldering septic picture. 12/28: Renal function remains acceptable. Requiring ongoing vasopressor support with Levophed. Acid-base balance largely corrected. Ileostomy is well perfused and functioning. Plan is to attempt to close the abdomen tomorrow. Blood sugar has twice dropped into the 20s when glucose containing IV solutions have all been stopped. Plan to start tube feeds when OK with surgical service. Please keep glucose containing solution running during operative procedures Objective Vital Signs / I&O: Vital Signs 12/27/17 12:00 12/27/17 12:32 12/27/17 16:00 Temperature 98.8 F 98.6 F Pulse Rate 105 H 110 H Respiratory Rate 15 15 15 Blood Pressure 119/56 L 122/60 Pulse Oximetry 98 98 99 12/27/17 16:14 12/27/17 20:00 12/27/17 20:19 Temperature 98.2 F Pulse Rate 108 H Respiratory Rate 15 15 15 Blood Pressure 132/60 Pulse Oximetry 99 96 94 L 12/27/17 23:56 12/28/17 00:00 12/28/17 03:42 Temperature 97.9 F Pulse Rate 108 H Respiratory Rate 15 15 15 Blood Pressure 120/52 L Pulse Oximetry 93 L 93 L 99 12/28/17 04:00 12/28/17 08:01 Temperature 97.9 F Pulse Rate 118 H Respiratory Rate 15 15 Blood Pressure 116/60 Pulse Oximetry 99 100 Intake & Output 12/27/17 12/28/17 12/28/17 18:59 06:59 18:59 Intake Total 1650 / 1650 2800 / 2800 Output Total 1125 / 1125 1300 / 1300 Balance 525 / 525 1500 / 1500 Weight 85.3 kg Intake: IV 1650 / 1650 2800 / 2800 D5W/LR Inj 1,000 ML @ 125 mls/ 1000 / 1000 2000 / 2000 hr IV.CONT .Q8H JUANITA Rx#: [id number] Diprivan 1000 mg/100 ml Inj 1, 100 / 100 100 / 100 000 mg In 100 ml @ 5 MCG/KG/MIN 2.049 mls/hr IV.CONT TITRATE PRN Rx#:[id number] Levophed-Dextrose 4 mg/250 ml 250 / 250 500 / 500 Drip 4 mg In 250 ml @ 2 MCG/MIN 7.5 mls/hr IV.SIG TITRATE PRN Rx#:[id number] Zosyn 4.5 GM Premix 4.5 gm In 200 / 200 200 / 200 100 ml @ 200 mls/hr IV.SIG Q6H JUANITA Rx#:[id number] KCl 40 mEq Premix Inj 40 meq In 100 / 100 100 ml @ 25 mls/hr IV.SIG UNSCH PRN Rx#:[id number] Output: Urine Amount (Catheter) 450 / 450 500 / 500 Indwelling Urethral Catheter 450 / 450 500 / 500 Stool Amount (Stoma) 200 / 200 400 / 400 Right Lower Abdomen 200 / 200 400 / 400 Gastric Drainage 125 / 125 0 / 0 Nasogastric Tube 0 / 0 Right Nare 125 / 125 0 / 0 Wound Vac Amount 350 / 350 400 / 400 Midline Abdomen 350 / 350 400 / 400 Other: Mode Setting Midline Abdomen Continuous Continuous Date of Last Bowel Movement 12/18/17 12/18/17 Result Diagrams: 12/28/17 05:15 12/28/17 15:40 Objective Remarks: Narrative: GENERAL: Frail, elderly female, intubated, sedated, critically ill, on mechanical ventilation SKIN: Well-perfused. HEENT: Oral tracheal intubation, NG tube in place. Perrl. mucous membranes moist. CARDIOVASCULAR: Tachycardic rate, regular rhythm. sinus. no JVD RESPIRATORY: Volume control ventilation. equal chest rise. no wheezes. decreased breath sounds in bases. good bilateral air entry. GASTROINTESTINAL: Soft. open abdomen with vac dressing in place. minimal amount of serosanguinous output. no guarding. MUSCULOSKELETAL: No obvious deformities. No clubbing or cyanosis. No edema. NEUROLOGICAL: Intubated, sedated. RASS -2. sedated to prevent evisceration. withdraws to pain x 4. Procedures: Laparotomy and bowel resection 12/24 Laparotomy and ileostomy formation 12/26 Intubation and mechanical ventilation Assessment and Plan - Problem List (1) Respiratory failure requiring intubation Code(s): J96.90 - Respiratory failure, unspecified, unspecified whether with hypoxia or hypercapnia Status: Acute (2) Septic shock Code(s): A41.9 - Sepsis, unspecified organism; R65.21 - Severe sepsis with septic shock Status: Acute (3) Hypoglycemia Code(s): E16.2 - Hypoglycemia, unspecified Status: Acute (4) Non-STEMI (non-ST elevated myocardial infarction) Code(s): I21.4 - Non-ST elevation (NSTEMI) myocardial infarction Status: Acute (5) Free intraperitoneal air Code(s): K66.8 - Other specified disorders of peritoneum Status: Acute (6) Acute abdomen Code(s): R10.0 - Acute abdomen Status: Acute (7) Elevated lactic acid level Code(s): R79.89 - Other specified abnormal findings of blood chemistry Status : Acute (8) Ischemic bowel syndrome Code(s): K55.9 - Vascular disorder of intestine, unspecified Status: Acute - Assessment and Plan Plan: Assessment: 87yF with perforated small bowel now POD 0 s/p emergent exploratory laparotomy, small bowel resection, left in discontinuity with open abdomen. iv antibiotics, vasopressors, iv fluid resuscitation. Critically ill. keep deeply sedated while abdomen open. Plan by systems: Neurologic: Acute metabolic encephalopathy Propofol and fentanyl for goal RASS -3 while abdomen is open Respiratory: Acute hypoxic and hypercarbic respiratory failure Vent bundle Head of bed elevated Nebs Wean FiO2 for goal SPO2 greater than 90% No weaning of mechanical ventilation until abdomen is closed Can start spontaneous breathing trials with good pressure support to prevent excessive abdominal wall activity. Cardiovascular: Septic shock Levophed for goal map greater than 65 IV fluid resuscitation which is ongoing trend lactates Remains at 6-9 mcg/min. Renal: Acute kidney injury Likely secondary to septic shock and volume depletion in the setting of small bowel perforation Continue Hankins Frequent urine checks Daily BMP Maintenance fluid resuscitation -- Strict I/Os Improving. FEN/GI: Small bowel perforation Intra-abdominal sepsis Severe acute protein calorie malnutrition Hypocalcemia Hypomagnesemia Strict n.p.o. while in discontinuity ICU electrolyte protocol Antibiotics as described below Dr. Aldrich following Plan to go back to the OR on Friday Maintenance fluids D5 LR at 125 cc an hour Bolus with additional 1000 mL normal saline this morning. Heme/ID: Anemia secondary to acute blood loss Septic shock Intra-abdominal sepsis Status post 1 unit PRBCs in the OR. Recheck CBC Daily CBC DC Cipro and Flagyl p.o. Zosyn IV Follow-up cultures Repeat hemoglobin acceptable Endocrine: Hyperglycemia of critical illness -- SSI -Prone to hypoglycemia if sugar not added to maintenance IV fluids. Glucose 29 last night after return from OR. Please keep glucose containing solution running during operative procedures Prophylaxis: GI Prophylaxis PPI IV DVT Prophylaxis -- SCDs Subcu heparin Lines: 12/24 radial arterial line 12/24 left subclavian triple-lumen catheter 12/24 Hankins Overall impression: This woman remains critically ill following damage control surgery for spontaneous perforation of the bowel and peritonitis. She returned to the OR on 12/26 for ileostomy construction. The abdomen remains open and covered with a dressing. She is hemodynamically unstable requiring vasopressor therapy and mechanical ventilation. She remains in septic shock and tenuous.. Critical care time 45 minutes aside from invasive procedures.
[2017-12-28] MEDS: Magnesium Sulfate Inj 2 GM in Sodium Chlor 0.9% Inj 96 ML IV.SIG PRN (08:49)
[2017-12-28] MEDS: Chlorhexidine 0.12% Oral Kit 15 ML UDC OROPHARYNG SCH ×2 (09:41→20:32)
[2017-12-28] MEDS: fentaNYL 10 mcg/mL Premix Drip 2,500 MCG/250 ML BAG IV.SIG PRN (12:11)
--- NOTE | 2017-12-28 17:28 | P.PN ---
Subjective Interval history: Uneventful night; still on Levophed; labile blood pressure when she is turned. Physical Exam Vital signs: Vital Signs 12/27/17 20:00 12/27/17 20:19 12/27/17 23:56 Temperature 98.2 F Pulse Rate 108 H Respiratory Rate 15 15 15 Blood Pressure 132/60 Pulse Oximetry 96 94 L 93 L 12/28/17 00:00 12/28/17 03:42 12/28/17 04:00 Temperature 97.9 F 97.9 F Pulse Rate 108 H 118 H Respiratory Rate 15 15 15 Blood Pressure 120/52 L 116/60 Pulse Oximetry 93 L 99 99 12/28/17 08:00 12/28/17 08:01 12/28/17 12:00 Temperature 97.9 F 97.1 F L Pulse Rate 110 H 104 H Respiratory Rate 15 15 15 Blood Pressure 108/54 L 116/50 L Pulse Oximetry 99 100 99 12/28/17 12:07 12/28/17 17:01 Temperature Pulse Rate Respiratory Rate 15 15 Blood Pressure Pulse Oximetry 98 98 Intake & Output 12/27/17 12/28/17 12/28/17 18:59 06:59 18:59 Intake Total 1650 / 1650 2800 / 2800 350 / 350 Output Total 1125 / 1125 1300 / 1300 Balance 525 / 525 1500 / 1500 350 / 350 Weight 85.3 kg Intake: IV 1650 / 1650 2800 / 2800 350 / 350 D5W/LR Inj 1,000 ML @ 125 mls/ 1000 / 1000 2000 / 2000 hr IV.CONT .Q8H JUANITA Rx#: [id number] Diprivan 1000 mg/100 ml Inj 1, 100 / 100 100 / 100 000 mg In 100 ml @ 5 MCG/KG/MIN 2.049 mls/hr IV.CONT TITRATE PRN Rx#:[id number] Levophed-Dextrose 4 mg/250 ml 250 / 250 500 / 500 Drip 4 mg In 250 ml @ 2 MCG/MIN 7.5 mls/hr IV.SIG TITRATE PRN Rx#:[id number] Zosyn 4.5 GM Premix 4.5 gm In 200 / 200 200 / 200 100 / 100 100 ml @ 200 mls/hr IV.SIG Q6H JUANITA Rx#:[id number] KCl 40 mEq Premix Inj 40 meq In 100 / 100 100 ml @ 25 mls/hr IV.SIG UNSCH PRN Rx#:[id number] fentaNYL 10 mcg/mL Premix Drip 250 / 250 2,500 mcg In 250 ml @ 50 MCG/HR 5 mls/hr IV.SIG TITRATE PRN Rx #:[id number] Output: Urine Amount (Catheter) 450 / 450 500 / 500 Indwelling Urethral Catheter 450 / 450 500 / 500 Stool Amount (Stoma) 200 / 200 400 / 400 Right Lower Abdomen 200 / 200 400 / 400 Gastric Drainage 125 / 125 0 / 0 Nasogastric Tube 0 / 0 Right Nare 125 / 125 0 / 0 Wound Vac Amount 350 / 350 400 / 400 Midline Abdomen 350 / 350 400 / 400 Other: Mode Setting Midline Abdomen Continuous Continuous Date of Last Bowel Movement 12/18/17 12/18/17 12/18/17 - Constitutional no acute distress Comments: Sedated - Routine Respiratory Exam Present: CTA bilaterally - Routine Abdominal Exam Present: soft, wound (VAC intact without leakage), ostomy (Green drainage in bag ) - Urinary Catheter Management Indwelling Urethral Catheter Cath placed during this visit: yes Reason for continuing: Hourly intake/output Insertion date: 12/24/17 Insertion time: 20:15 Results - Labs CBC & Chem 7: 12/28/17 05:15 12/28/17 15:40 Laboratory Results - last 24 hr 12/27/17 12/27/17 12/28/17 18:31 22:32 05:15 WBC 15.0 H RBC 3.06 L Hgb 9.4 L Hct 28.8 L MCV 94.1 MCH 30.7 MCHC 32.7 RDW 15.9 Plt Count 125 L MPV 9.4 Sodium Potassium Chloride Carbon Dioxide Anion Gap BUN Creatinine Estimated GFR POC Glucose 88 120 H Random Glucose Calcium Prot Corrected Calcium Phosphorus Magnesium Total Protein 12/28/17 12/28/17 12/28/17 05:15 14:45 14:51 WBC RBC Hgb Hct MCV MCH MCHC RDW Plt Count MPV Sodium 141 Potassium 3.4 L Chloride 110 H Carbon Dioxide 21.7 Anion Gap 9 BUN 7 Creatinine 0.79 Estimated GFR 83 L POC Glucose 64 L 76 Random Glucose 129 H Calcium 6.5 L* Prot Corrected Calcium 8.4 L Phosphorus 2.4 L Magnesium 1.3 L Total Protein 3.6 L 12/28/17 15:40 WBC RBC Hgb Hct MCV MCH MCHC RDW Plt Count MPV Sodium Potassium Chloride Carbon Dioxide Anion Gap BUN Creatinine Estimated GFR POC Glucose Random Glucose 114 H Calcium Prot Corrected Calcium Phosphorus Magnesium Total Protein Microbiology 12/25/17 02:59 Blood - Peripheral Aerobic Blood Culture - Preliminary No growth in 3 days 12/25/17 02:59 Blood - Peripheral Anaerobic Blood Culture - Preliminary No growth in 3 days 12/25/17 00:50 Blood - Peripheral Aerobic Blood Culture - Preliminary No growth in 3 days 12/25/17 00:50 Blood - Peripheral Anaerobic Blood Culture - Preliminary No growth in 3 days Assessment and Plan - Assessment (1) Acute abdomen Code(s): R10.0 - Acute abdomen Status: Acute (2) Free intraperitoneal air Code(s): K66.8 - Other specified disorders of peritoneum Status: Acute Plan: Status post bowel resection with breakdown. Ileostomy with VAC dressing. Patient to go to the OR tomorrow for wound closure and G tube placement by Dr. Aldrich (3) Enteritis Code(s): K52.9 - Noninfective gastroenteritis and colitis, unspecified Status : Acute (4) History of esophageal reflux Code(s): Z87.19 - Personal history of other diseases of the digestive system Status: Chronic (5) Elevated lactic acid level Code(s): R79.89 - Other specified abnormal findings of blood chemistry Status : Acute (6) Dehydration Code(s): E86.0 - Dehydration Status: Acute (7) Sepsis Code(s): A41.9 - Sepsis, unspecified organism Status: Acute (8) Hypomagnesemia Code(s): E83.42 - Hypomagnesemia Status: Acute (9) Hypertension Code(s): I10 - Essential (primary) hypertension Status: Chronic (7) Sepsis Qualifiers: Sepsis type: sepsis due to unspecified organism Qualified Code(s): A41.9 - Sepsis, unspecified organism (9) Hypertension Qualifiers: Hypertension type: essential hypertension Qualified Code(s): I10 - Essential (primary) hypertension
[2017-12-28 20:04] LABS: Magnesium 1.5 mg/dL (1.5-2.5); Potassium 3.8 meq/L (3.5-5.1)
[2017-12-28 20:08] LABS: Phosphorus 3.7 mg/dL (2.5-4.9)
[2017-12-29] MEDS: Oral Hygiene Kit OROPHARYNG SCH ×5 (00:06→23:24)
[2017-12-29] MEDS: Dextrose 5%/Lactated Ringer's 1,000 ML IV.CONT SCH ×5 (00:06→22:35)
[2017-12-29] MEDS: Piperacil/Tazo 4.5 GM Premix 4.5 GM/100 ML BAG IV.SIG SCH ×5 (00:08→23:24)
[2017-12-29 05:19] LABS: Hematocrit 27.6 % (35.0-46.0); Hemoglobin 9.2 gm/dL (11.6-15.3); Mean Corpuscular HGB Conc 33.2 % (32.0-36.0); Mean Corpuscular Hemoglobin 31.2 pg (27.0-34.0); Mean Platelet Volume 9.6 fL (7.0-11.0); Platelet Count 108 th/mm3 (150-450); Red Blood Count 2.94 mil/mm3 (4.00-5.30); Red Cell Distribution Width 15.7 % (11.6-17.2); White Blood Count 10.2 th/mm3 (4.0-11.0)
[2017-12-29 05:42] LABS: C-Reactive Protein 15.5 mg/dL (0.00-0.30)
[2017-12-29 05:51] LABS: Anion Gap 9 meq/L (5-15); Blood Urea Nitrogen 6 mg/dL (7-18); Calcium 6.8 mg/dL (8.5-10.1); Carbon Dioxide 22.2 meq/L (21.0-32.0); Chloride 108 meq/L (98-107); Glomerular Filtration Rate Greater Than 89 mL/min (>89); Glucose,Random 99 mg/dL (74-106); Magnesium 1.4 mg/dL (1.5-2.5); Phosphorus 3.1 mg/dL (2.5-4.9); Potassium 3.5 meq/L (3.5-5.1); Sodium 139 meq/L (136-145)
[2017-12-29 06:10] LABS: Total Protein 3.7 g/dL (6.4-8.2)
[2017-12-29] MEDS ORDERED: Bupivacaine/Epinephrine Inj 0.25% 50 ML Vial ONE (08:32)
--- NOTE | 2017-12-29 10:18 | P.PNCC ---
Subjective Subjective Remarks/Hospital Course: 87yF originally admitted for abdominal pain and now found to have perforated hollow viscus with intra-abdominal free air. taken to OR emergently by Dr. Aldrich for exploratory laparotomy where they found small bowel perforation. small bowel was resected and due to significantly poor patient tissue and gross contamination of the field, patient was left in discontinuity with an open abdomen. arrives to the ICU intubated, critically ill, on vasopressors, in shock. sedated. no additional information is available from the patient; ROS unobtainable. 12/25: She remains oliguric and septic. We are unable to separate her from mechanical ventilation and are still correcting her metabolic acidosis. Pre- albumin of 5 implicates poor preoperative nutrition. Description of bowel from surgery lens support for a severely debilitated state prior to surgery. She is presently hemodynamically unstable and oliguric. 12/26: Magnesium, phosphate, potassium all low; presently being replaced. Persistent septic pattern. Scheduled for second look operation later today, anticipate discouraging findings. Acid-base balance acceptable in gas exchange good. Update: Back from OR. Well perfused. Clear lungs. Base -6. Urine acceptable. 12/27: Back from surgery yesterday with end ileostomy fashioned. Abdomen remains open with VAC dressing in place. Acid-base balance modestly improved and acceptable. Urine output acceptable and renal function remains close to normal. She remains hemodynamically unstable and rate wiring levo fed at 9 mcg/ min; typical of the smoldering septic picture. 12/28: Renal function remains acceptable. Requiring ongoing vasopressor support with Levophed. Acid-base balance largely corrected. Ileostomy is well perfused and functioning. Plan is to attempt to close the abdomen tomorrow. Blood sugar has twice dropped into the 20s when glucose containing IV solutions have all been stopped. Plan to start tube feeds when OK with surgical service. Please keep glucose containing solution running during operative procedures 12/29: Patient seen after OR. Abdomen closed, new J-tube in place. Ileostomy pink. Still requiring high-dose Levophed currently at 10 mcg/min. No hypoglycemia reported. For OR report is pending. Developed paroxysmal A. fib postop. Replace potassium and magnesium, give metoprolol as needed IV Objective Vital Signs / I&O: Vital Signs 12/28/17 12:00 12/28/17 12:07 12/28/17 16:00 Temperature 97.1 F L 97.5 F L Pulse Rate 104 H 116 H Respiratory Rate 15 15 15 Blood Pressure 116/50 L 118/56 L Pulse Oximetry 99 98 98 12/28/17 17:01 12/28/17 19:48 12/28/17 20:00 Temperature 97.5 F L Pulse Rate 108 H Respiratory Rate 15 15 15 Blood Pressure 120/56 L Pulse Oximetry 98 98 98 12/29/17 00:00 12/29/17 01:29 12/29/17 04:00 Temperature 97.2 F L 97.2 F L Pulse Rate 104 H 115 H Respiratory Rate 15 15 15 Blood Pressure 116/50 L 123/56 L Pulse Oximetry 98 98 98 12/29/17 04:08 12/29/17 08:11 12/29/17 09:07 Temperature Pulse Rate Respiratory Rate 15 15 Blood Pressure Pulse Oximetry 99 97 98 Intake & Output 12/28/17 12/29/17 12/29/17 18:59 06:59 18:59 Intake Total 2160 / 2160 1550 / 1550 200 / 200 Output Total 1685 / 1685 1700 / 1700 105 / 105 Balance 475 / 475 -150 / -150 95 / 95 Weight 87.4 kg Intake: IV 2160 / 2160 1550 / 1550 D5W/LR Inj 1,000 ML @ 125 mls/ 1000 / 1000 1000 / 1000 hr IV.CONT .Q8H JUANITA Rx#: [id number] Diprivan 1000 mg/100 ml Inj 1, 100 / 100 100 / 100 000 mg In 100 ml @ 5 MCG/KG/MIN 2.049 mls/hr IV.CONT TITRATE PRN Rx#:[id number] Magnesium Sulfate Inj 2 GM In 100 / 100 NS Inj 96 ML @ 50 mls/hr IV.SIG UNSCH PRN Rx#:[id number] Levophed-Dextrose 4 mg/250 ml 250 / 250 250 / 250 Drip 4 mg In 250 ml @ 2 MCG/MIN 7.5 mls/hr IV.SIG TITRATE PRN Rx#:[id number] Zosyn 4.5 GM Premix 4.5 gm In 200 / 200 200 / 200 100 ml @ 200 mls/hr IV.SIG Q6H JUANITA Rx#:[id number] Potassium Phosphate Inj 30 MMOL 260 / 260 In NS Inj 250 ML @ 42 mls/hr IV.SIG UNSCH PRN Rx#:[id number] fentaNYL 10 mcg/mL Premix Drip 250 / 250 2,500 mcg In 250 ml @ 50 MCG/HR 5 mls/hr IV.SIG TITRATE PRN Rx #:[id number] Anesthesia Amount 200 / 200 Output: Estimated Blood Loss 5 / 5 Urine Amount (Catheter) 675 / 675 700 / 700 100 / 100 Indwelling Urethral Catheter 675 / 675 700 / 700 100 / 100 Stool Amount (Stoma) 300 / 300 400 / 400 Right Lower Abdomen 300 / 300 400 / 400 Gastric Drainage 10 / 10 0 / 0 Nasogastric Tube 10 / 10 0 / 0 Right Nare 0 / 0 Wound Vac Amount 700 / 700 600 / 600 Midline Abdomen 700 / 700 600 / 600 Other: Mode Setting Midline Abdomen Continuous Continuous Date of Last Bowel Movement 12/18/17 12/18/17 Result Diagrams: 12/29/17 05:05 12/29/17 05:05 Objective Remarks: GENERAL: Frail, elderly female, intubated, sedated, critically ill, on mechanical ventilation SKIN: Well-perfused. HEENT: Oral tracheal intubation. ZACARIAS CARDIOVASCULAR: Tachycardic rate, regular rhythm. sinus. no JVD. Currently on Levophed at 10 mcg/min RESPIRATORY: Equal chest rise. no wheezes. decreased breath sounds in bases. good bilateral air entry. GASTROINTESTINAL: Abdomen closed today, midline incision dressing intact. Ostomy pink. New G-tube in place MUSCULOSKELETAL: No obvious deformities. No clubbing or cyanosis. No edema. NEUROLOGICAL: Intubated, sedated. RASS -2. sedated to prevent evisceration ( now abdomen is closed). withdraws to pain x 4. Procedures: Laparotomy and bowel resection 12/24 Laparotomy and ileostomy formation 12/26 Intubation and mechanical ventilation Assessment and Plan - Problem List (1) Respiratory failure requiring intubation Code(s): J96.90 - Respiratory failure, unspecified, unspecified whether with hypoxia or hypercapnia Status: Acute (2) Septic shock Code(s): A41.9 - Sepsis, unspecified organism; R65.21 - Severe sepsis with septic shock Status: Acute (3) Hypoglycemia Code(s): E16.2 - Hypoglycemia, unspecified Status: Acute (4) Non-STEMI (non-ST elevated myocardial infarction) Code(s): I21.4 - Non-ST elevation (NSTEMI) myocardial infarction Status: Acute (5) Free intraperitoneal air Code(s): K66.8 - Other specified disorders of peritoneum Status: Acute (6) Acute abdomen Code(s): R10.0 - Acute abdomen Status: Acute (7) Elevated lactic acid level Code(s): R79.89 - Other specified abnormal findings of blood chemistry Status : Acute (8) Ischemic bowel syndrome Code(s): K55.9 - Vascular disorder of intestine, unspecified Status: Acute - Assessment and Plan Plan: Assessment: 87yF with perforated small bowel now s/p emergent exploratory laparotomy, small bowel resection, left in discontinuity with open abdomen. iv antibiotics, vasopressors, iv fluid resuscitation. Critically ill. Went to OR today 12/29/2017 for abdomen closure. Plan by systems: Neurologic: Acute metabolic encephalopathy Propofol and fentanyl for goal RASS -3 Start reducing sedation, and target last -2 today as the abdomen is closed Respiratory: Acute hypoxic and hypercarbic respiratory failure Vent bundle, Head of bed elevated, Nebs Wean FiO2 for goal SPO2 greater than 90% No weaning of mechanical ventilation until clinically more stable and pressor requirement reduced Cardiovascular: Septic shock Paroxysmal A. fib Levophed for goal map greater than 65, currently on 10 mcg/min IV fluid resuscitation which is ongoing trend lactates as needed Metoprolol 2.5 mg IV every 6 hours as needed for heart rate more than 120 Cannot anticoagulate for A. fib due to recent surgery Use amiodarone if needed for rate control Keep magnesium more than 2.2, keep potassium more than 4 Renal: Acute kidney injury Likely secondary to septic shock and volume depletion in the setting of small bowel perforation Continue Hankins, Frequent urine checks, Daily BMP Maintenance fluid resuscitation currently on D5 to prevent hypoglycemia -- Strict I/Os Improving, creatinine has normalized FEN/GI: Small bowel perforation Intra-abdominal sepsis Severe acute protein calorie malnutrition Hypocalcemia Hypomagnesemia Strict n.p.o. status post OR and abdominal closure today Ileostomy pink, new G-tube in place ICU electrolyte protocol Antibiotics as described below Dr. Aldrich following Maintenance fluids D5 LR at 125 cc an hour Heme/ID: Anemia secondary to acute blood loss Septic shock Intra-abdominal sepsis Status post 1 unit PRBCs in the OR. Daily CBC Continue Zosyn IV Follow-up cultures-negative to date Repeat hemoglobin acceptable preop Endocrine: Hypoglycemia Hyperglycemia of critical illness Hypomagnesemia Hypokalemia -- SSI -Aggressive electrolyte replacement -Prone to hypoglycemia if sugar not added to maintenance IV fluids. OR kept glucose containing solution running during operative procedures to avoid hypoglycemia Prophylaxis: GI Prophylaxis PPI IV DVT Prophylaxis -- SCDs Subcu heparin Lines: 12/24 radial arterial line 12/24 left subclavian triple-lumen catheter 12/24 Hankins Overall impression: This woman remains critically ill following damage control surgery for spontaneous perforation of the bowel and peritonitis. She returned to the OR on 12/26 for ileostomy construction, return to OR again today 2017 for abdominal wound closure NG tube placement. She is hemodynamically unstable requiring vasopressor therapy and mechanical ventilation. She remains in septic shock and tenuous. Critical care time 35 minutes aside from invasive procedures. Code Status: Full
[2017-12-29] MEDS: Propofol 1000 mg/100 ml Inj 1,000 MG/100 ML BOTTLE IV.CONT PRN ×2 (11:33→21:45)
[2017-12-29] MEDS: fentaNYL 10 mcg/mL Premix Drip 2,500 MCG/250 ML BAG IV.SIG PRN (11:39)
--- NOTE | 2017-12-29 11:40 | MP ---
cc: Owen Aldrich MD DATE OF OPERATION: 12/29/2017 PREOPERATIVE DIAGNOSIS: Open abdomen. POSTOPERATIVE DIAGNOSIS: Open abdomen from previous small bowel necrosis. PROCEDURE PERFORMED: Exploratory laparotomy, placement of a gastrostomy tube, closure of abdominal wound. ANESTHESIA: General. SURGEON: Owen Aldrich MD INDICATIONS: The patient is an unfortunate 87-year-old female; this is her third operation. She had a presentation with free air. It was found that she had necrosis of her small bowel. We left her open at that initial event because of the severity of her illness. We took her back a second time, did an ileostomy and a cholecystectomy. She is set now for attempted closure with placement of G-tube. PROCEDURE: The patient was taken to the operating room and placed in supine position. She has been intubated and in the ICU. The VAC device is removed. Abdomen was prepped with Betadine. Timeout is done. She is on antibiotics. We then gently explored the abdomen. The stomach has an NG tube and is not dilated. Transverse colon is not dilated because she has a distant ileostomy. There is not much in the large bowel. The small bowel and the ileostomy looks quite viable. She does have some adhesive bands. These were left alone because of the attenuated tissues. I then readied a gastrostomy tube, placed a BETZY-22 in the left upper quadrant and placing #2 silk sutures; pursestring type in the body of the stomach. The tube is in place. The balloon was insufflated with 7 mL of saline. It is secured and tacked to the anterior abdominal wall with a silk stitch. It is secured to the skin with 3-0 nylon. We then irrigate the abdomen. The rest of the small bowel looks pretty pink. We then just simply closed the fascia using #1 PDS looped and reapproximate the skin loosely with a skin stapler device. Abdominal binder was placed. She then returns to the intensive care unit. Owen Aldrich MD JDB/marco , 10:29 AM , 10:37 AM [facility]
[2017-12-29] MEDS ORDERED: Potassium Chlor 40 mEq Premix 40 MEQ/100 ML PIGGYBACK IV.SIG ONE (12:00)
[2017-12-29] MEDS: Mag Sulf 1 gm/100 ml Premix 100 ML IV.SIG SCH ×2 (12:09→14:11)
[2017-12-29] MEDS: Metoprolol Inj 5 MG/5 ML Vial IV.PUSH PRN (12:21)
[2017-12-29] MEDS: Magnesium Sulfate Inj 2 GM in Sodium Chlor 0.9% Inj 96 ML IV.SIG PRN (12:27)
[2017-12-29] MEDS: Chlorhexidine 0.12% Oral Kit 15 ML UDC OROPHARYNG SCH ×2 (12:55→20:45)
[2017-12-29] MEDS ORDERED: Albumin Human 5% Inj 250 ML IV.SIG ONE ×2 (14:45→14:50)
[2017-12-29] MEDS ORDERED: Sod Chloride 0.9% Inj 1,000 ML IV.SIG SCH (15:00)
[2017-12-29] MEDS ORDERED: Digoxin Inj 500 MCG/2 ML Ampul IV.PUSH ONE (15:00)
[2017-12-29] MEDS ORDERED: Amiodarone Inj 150 MG in Dextrose 5% in Water Inj 97 ML IV.SIG ONE ×2 (16:00)
--- NOTE | 2017-12-29 17:19 | P.PNPAL ---
Reason for Visit Reason for visit: a. To assist with evaluation and management of symptoms including: pain; dyspnea; encephalopathy b. To assist medical decision maker(s) with: better understanding of current medical conditions; weighing benefits/burdens of medical treatment options; making medical treatment decisions. Subjective Subjective/Interval History: Follow-up medically necessary for clarification of goals of medical treatment. Patient seen and examined in the room on [facility]. Patient remains intubated and sedated on mechanical ventilation. Continue sedated with propofol infusion at 10 mcg/kg/min and fentanyl infusion at 75 mcg/h. Patient remains on vasopressin and Levophed infusion support. Levophed currently infusing at 7 mcg /min. Interim course: * 12/26/17: Patient underwent removal of temporary abdominal closure device, abdominal exploration, small bowel resection, resection of cecum and terminal ileum, primary anastomosis of ileum to ascending colon, which the tissue was compromised and the anastomosis failed, resection of anastomosis, placement of ileostomy, cholecystectomy and placement of temporary abdominal closure device. * 12/28/17-ongoing pressor support. Blood sugar dropped twice into the 20s. 12/29/17-patient underwent exploratory laparotomy, placement of gastrostomy tube and closure of abdominal wound. Patient developed paroxysmal atrial fibrillation postoperatively. She was started on amiodarone infusion, currently infusing at 1 mg/min. Telephone call to both patient's sons Alex Ochoa ) and Yves Johnson ([phone]), with no response, left voice messages with palliative care contact information. Patient`s son Don had indicated to palliative care on that he would want code status to be changed to alternate code with no chest compressions and no shock perioperative and was going to discuss this matter with his brother Yves. Family/Friend Interactions: See interval note Advance Directives Living Will: Never completed Health Care Surrogate: Never completed Durable Power of Set Up Mechanic: Never completed Documented care wishes:: No written documentation of health care goals/preferences . Objective Vital Signs: Vital Signs 12/28/17 17:01 12/28/17 19:48 12/28/17 20:00 Temperature 97.5 F L Pulse Rate 108 H Respiratory Rate 15 15 15 Blood Pressure 120/56 L Pulse Oximetry 98 98 98 12/29/17 00:00 12/29/17 01:29 12/29/17 04:00 Temperature 97.2 F L 97.2 F L Pulse Rate 104 H 115 H Respiratory Rate 15 15 15 Blood Pressure 116/50 L 123/56 L Pulse Oximetry 98 98 98 12/29/17 04:08 12/29/17 08:00 12/29/17 08:11 Temperature 97.5 F L Pulse Rate 106 H Respiratory Rate 15 15 15 Blood Pressure 111/52 L Pulse Oximetry 99 99 97 12/29/17 09:07 12/29/17 11:22 12/29/17 12:00 Temperature 96.1 F L Pulse Rate 100 H Respiratory Rate 17 15 Blood Pressure 146/72 H Pulse Oximetry 98 99 100 12/29/17 16:48 Temperature Pulse Rate Respiratory Rate 15 Blood Pressure Pulse Oximetry 95 Intake & Output 12/28/17 12/29/17 12/29/17 18:59 06:59 18:59 Intake Total 2160 / 2160 1550 / 1550 2200 / 2200 Output Total 1685 / 1685 1700 / 1700 105 / 105 Balance 475 / 475 -150 / -150 2095 / 2095 Weight 87.4 kg Intake: IV 2160 / 2160 1550 / 1550 2000 / 2000 D5W/LR Inj 1,000 ML @ 125 mls/ 1000 / 1000 1000 / 1000 1000 / 1000 hr IV.CONT .Q8H JUANITA Rx#: [id number] Diprivan 1000 mg/100 ml Inj 1, 100 / 100 100 / 100 100 / 100 000 mg In 100 ml @ 5 MCG/KG/MIN 2.049 mls/hr IV.CONT TITRATE PRN Rx#:[id number] Magnesium Sulfate 1 gm/D5W 100 200 / 200 ml Premix 100 ML @ 100 mls/hr IV.SIG Q1H JUANITA Rx#:[id number] Magnesium Sulfate Inj 2 GM In 100 / 100 100 / 100 NS Inj 96 ML @ 50 mls/hr IV.SIG UNSCH PRN Rx#:[id number] Levophed-Dextrose 4 mg/250 ml 250 / 250 250 / 250 250 / 250 Drip 4 mg In 250 ml @ 2 MCG/MIN 7.5 mls/hr IV.SIG TITRATE PRN Rx#:[id number] Zosyn 4.5 GM Premix 4.5 gm In 200 / 200 200 / 200 100 / 100 100 ml @ 200 mls/hr IV.SIG Q6H JUANITA Rx#:[id number] Potassium Phosphate Inj 30 MMOL 260 / 260 In NS Inj 250 ML @ 42 mls/hr IV.SIG UNSCH PRN Rx#:[id number] fentaNYL 10 mcg/mL Premix Drip 250 / 250 250 / 250 2,500 mcg In 250 ml @ 50 MCG/HR 5 mls/hr IV.SIG TITRATE PRN Rx #:[id number] Anesthesia Amount 200 / 200 Output: Estimated Blood Loss 5 / 5 Urine Amount (Catheter) 675 / 675 700 / 700 100 / 100 Indwelling Urethral Catheter 675 / 675 700 / 700 100 / 100 Stool Amount (Stoma) 300 / 300 400 / 400 Right Lower Abdomen 300 / 300 400 / 400 Gastric Drainage 10 / 10 0 / 0 Nasogastric Tube 10 / 10 0 / 0 Right Nare 0 / 0 Wound Vac Amount 700 / 700 600 / 600 Midline Abdomen 700 / 700 600 / 600 Other: Mode Setting Midline Abdomen Continuous Continuous Date of Last Bowel Movement 12/18/17 12/18/17 12/18/17 Physical Exam: CONSTITUTIONAL/GENERAL: This is an adequately nourished patient; sedated on mechanical ventilation. TUBES/LINES/DRAINS: orotracheal tube; nasogastric tube; right radial arterial line; left subclavian central line; castillo catheter; soft wrist restraints; wound vac; SCDs. SKIN: No jaundice, rashes, or lesions. Open abdominal surgical wound. Skin temperature appropriate. Not diaphoretic. HEAD: Atraumatic. Normocephalic. EYES: Pupils equal and round. Extraocular motions could not be assessed. No scleral icterus. No injection or drainage. Fundi not examined. ENT: Unable to evaluate hearing due to sedation. Nose without bleeding or purulent drainage. Throat without visible erythema, exudates, masses, or lesions though difficult to evaluate due to intubations. NECK: Trachea midline. CARDIOVASCULAR: Regular rate and rhythm without murmurs, gallops, or rubs. No JVD. Peripheral pulses symmetric. RESPIRATORY/CHEST: Symmetric, unlabored respirations. Clear to auscultation. Breath sounds equal bilaterally. No wheezes, rales, or rhonchi. GASTROINTESTINAL: Midline abdominal wound with dressing intact-has an abdominal binder. Gastrostomy tube to gravity. no bowel sounds GENITOURINARY: Without palpable bladder distension. Castillo catheter in place. MUSCULOSKELETAL: Extremities without clubbing, cyanosis, or edema. SCDs in place. No mottling. NEUROLOGICAL: Sedated. Not opening eyes to voice/exam. Unable to follow commands. Withdraws to noxious stimuli in all extremities. PSYCHIATRIC: Unable to assess due to level of responsiveness. . Diagnostic Tests Laboratory: Laboratory Results - last 72 hr 12/25/17 12/26/17 12/26/17 13:25 18:07 18:56 WBC RBC Hgb Hct MCV MCH MCHC RDW Plt Count MPV Puncture Site Patient Temperature O2 Saturation ABG pH ABG pCO2 ABG pO2 ABG HCO3 ABG O2 Content ABG Base Excess ABG Methemoglobin Hemoglobin Carboxyhemoglobin O2 Delivery Device Vent Setting Inspired O2 Critical Value Sodium Potassium Chloride Carbon Dioxide Anion Gap BUN Creatinine Estimated GFR POC Glucose 29 L* 155 H Random Glucose Calcium Prot Corrected Calcium Phosphorus Magnesium C-Reactive Protein Total Protein IgG IgA IgM HAILEY Screen Blood Type Antibody Screen MTS Gel Crossmatch See Detail 12/26/17 12/26/17 12/27/17 20:48 23:13 04:16 WBC RBC Hgb Hct MCV MCH MCHC RDW Plt Count MPV Puncture Site Patient Temperature O2 Saturation ABG pH ABG pCO2 ABG pO2 ABG HCO3 ABG O2 Content ABG Base Excess ABG Methemoglobin Hemoglobin Carboxyhemoglobin O2 Delivery Device Vent Setting Inspired O2 Critical Value Sodium Potassium Chloride Carbon Dioxide Anion Gap BUN Creatinine Estimated GFR POC Glucose 114 H 107 110 Random Glucose Calcium Prot Corrected Calcium Phosphorus Magnesium C-Reactive Protein Total Protein IgG IgA IgM HAILEY Screen Blood Type Antibody Screen MTS Gel Crossmatch 12/27/17 12/27/17 12/27/17 06:00 06:00 06:04 WBC 20.3 H RBC 3.39 L Hgb 10.5 L Hct 31.7 L MCV 93.5 MCH 31.0 MCHC 33.1 RDW 16.6 Plt Count 169 MPV 9.3 Puncture Site Art line Patient Temperature 98.6 O2 Saturation 96 ABG pH 7.41 ABG pCO2 32 L ABG pO2 101 ABG HCO3 20 L ABG O2 Content 13.7 ABG Base Excess -4.0 L ABG Methemoglobin 1.3 Hemoglobin 10.1 L Carboxyhemoglobin 1.4 O2 Delivery Device Ventilator Vent Setting Prvc / ac / Inspired O2 35 Critical Value No Sodium 142 Potassium 3.4 L Chloride 110 H Carbon Dioxide 21.4 Anion Gap 11 BUN 9 Creatinine 0.86 Estimated GFR 75 L POC Glucose Random Glucose 118 H Calcium 6.8 L* Prot Corrected Calcium 8.6 Phosphorus 2.8 D Magnesium 1.7 C-Reactive Protein Total Protein 3.9 L D IgG IgA IgM HAILEY Screen Blood Type Antibody Screen [facility] Gel Crossmatch 12/27/17 12/27/17 12/27/17 12:56 18:31 22:32 WBC RBC Hgb Hct MCV MCH MCHC RDW Plt Count MPV Puncture Site Patient Temperature O2 Saturation ABG pH ABG pCO2 ABG pO2 ABG HCO3 ABG O2 Content ABG Base Excess ABG Methemoglobin Hemoglobin Carboxyhemoglobin O2 Delivery Device Vent Setting Inspired O2 Critical Value Sodium Potassium Chloride Carbon Dioxide Anion Gap BUN Creatinine Estimated GFR POC Glucose 111 H 88 120 H Random Glucose Calcium Prot Corrected Calcium Phosphorus Magnesium C-Reactive Protein Total Protein IgG IgA IgM HAILEY Screen Blood Type Antibody Screen [facility] Gel Crossmatch 12/28/17 12/28/17 12/28/17 05:15 05:15 14:45 WBC 15.0 H RBC 3.06 L Hgb 9.4 L Hct 28.8 L MCV 94.1 MCH 30.7 MCHC 32.7 RDW 15.9 Plt Count 125 L MPV 9.4 Puncture Site Patient Temperature O2 Saturation ABG pH ABG pCO2 ABG pO2 ABG HCO3 ABG O2 Content ABG Base Excess ABG Methemoglobin Hemoglobin Carboxyhemoglobin O2 Delivery Device Vent Setting Inspired O2 Critical Value Sodium 141 Potassium 3.4 L Chloride 110 H Carbon Dioxide 21.7 Anion Gap 9 BUN 7 Creatinine 0.79 Estimated GFR 83 L POC Glucose 64 L Random Glucose 129 H Calcium 6.5 L* Prot Corrected Calcium 8.4 L Phosphorus 2.4 L Magnesium 1.3 L C-Reactive Protein Total Protein 3.6 L IgG IgA IgM HAILEY Screen Blood Type Antibody Screen [facility] Gel Crossmatch 12/28/17 12/28/17 12/28/17 14:51 15:40 18:46 WBC RBC Hgb Hct MCV MCH MCHC RDW Plt Count MPV Puncture Site Patient Temperature O2 Saturation ABG pH ABG pCO2 ABG pO2 ABG HCO3 ABG O2 Content ABG Base Excess ABG Methemoglobin Hemoglobin Carboxyhemoglobin O2 Delivery Device Vent Setting Inspired O2 Critical Value Sodium Potassium Chloride Carbon Dioxide Anion Gap BUN Creatinine Estimated GFR POC Glucose 76 64 L Random Glucose 114 H Calcium Prot Corrected Calcium Phosphorus Magnesium C-Reactive Protein Total Protein IgG IgA IgM HAILEY Screen Blood Type Antibody Screen MTS Gel Crossmatch 12/28/17 12/28/17 12/29/17 18:48 19:02 05:05 WBC 10.2 RBC 2.94 L Hgb 9.2 L Hct 27.6 L MCV 94.0 MCH 31.2 MCHC 33.2 RDW 15.7 Plt Count 108 L MPV 9.6 Puncture Site Patient Temperature O2 Saturation ABG pH ABG pCO2 ABG pO2 ABG HCO3 ABG O2 Content ABG Base Excess ABG Methemoglobin Hemoglobin Carboxyhemoglobin O2 Delivery Device Vent Setting Inspired O2 Critical Value Sodium Potassium 3.8 Chloride Carbon Dioxide Anion Gap BUN Creatinine Estimated GFR POC Glucose 85 Random Glucose Calcium Prot Corrected Calcium Phosphorus 3.7 D Magnesium 1.5 C-Reactive Protein Total Protein IgG IgA IgM HAILEY Screen Blood Type Antibody Screen MTS Gel Crossmatch 12/29/17 12/29/17 12/29/17 05:05 05:05 05:05 WBC RBC Hgb Hct MCV MCH MCHC RDW Plt Count MPV Puncture Site Patient Temperature O2 Saturation ABG pH ABG pCO2 ABG pO2 ABG HCO3 ABG O2 Content ABG Base Excess ABG Methemoglobin Hemoglobin Carboxyhemoglobin O2 Delivery Device Vent Setting Inspired O2 Critical Value Sodium 139 Potassium 3.5 Chloride 108 H Carbon Dioxide 22.2 Anion Gap 9 BUN 6 L Creatinine 0.69 Estimated GFR Greater than 89 POC Glucose Random Glucose 99 Calcium 6.8 L* Prot Corrected Calcium 8.7 Phosphorus 3.1 Magnesium 1.4 L C-Reactive Protein 15.50 H Total Protein 3.7 L IgG 999 IgA 208 IgM 33 L HAILEY Screen Neg Blood Type Antibody Screen MTS Gel Crossmatch 12/29/17 08:30 WBC RBC Hgb Hct MCV MCH MCHC RDW Plt Count MPV Puncture Site Patient Temperature O2 Saturation ABG pH ABG pCO2 ABG pO2 ABG HCO3 ABG O2 Content ABG Base Excess ABG Methemoglobin Hemoglobin Carboxyhemoglobin O2 Delivery Device Vent Setting Inspired O2 Critical Value Sodium Potassium Chloride Carbon Dioxide Anion Gap BUN Creatinine Estimated GFR POC Glucose Random Glucose Calcium Prot Corrected Calcium Phosphorus Magnesium C-Reactive Protein Total Protein IgG IgA IgM HAILEY Screen Blood Type O Positive Antibody Screen Negative MTS Gel Crossmatch Result Diagrams: 12/29/17 05:05 12/29/17 05:05 Microbiology: Microbiology 12/25/17 02:59 Aerobic Blood Culture - Preliminary Blood - Peripheral No growth in 4 days Anaerobic Blood Culture - Preliminary No growth in 4 days 12/25/17 00:50 Aerobic Blood Culture - Preliminary Blood - Peripheral No growth in 4 days Anaerobic Blood Culture - Preliminary No growth in 4 days 12/24/17 14:45 Cryptosporidium Antigen - Final Stool Negative - No Cryptosporicium antigen detected In selected cases of patients with a history of immunosuppression or foreign travel, a full ova and parasites examination may be desired. Contact the microbiology lab if full workup is indicated and subit another specimen for testing. Giardia Antigen (BETZY) - Final Negative - No Giardia Antigen detected In selected cases of patients with a history of immunosuppression or foreign travel, a full ova and parasites examination may be desired. Contact the microbiology lab if full workup is indicated and subit another specimen for testing. Imaging: Abdomen X-Ray 12/24/17 00:00 CONCLUSION: Dilated small bowel with collapse of the colon most characteristic of small bowel obstructive process. Calcific atherosclerotic vascular disease Abdomen/Pelvis CT 12/24/17 00:00 CONCLUSION: 1. Small to moderate amount of free air of concern for ruptured viscus. 2. Abnormal bowel gas pattern with dilated loops of small bowel and air-fluid levels most characteristic of a small bowel obstruction. 3. Moderate diverticulosis present. These findings were called to Dr. Aldrich at 1839 hours. Chest X-Ray 12/24/17 23:04 CONCLUSION: Left central line tip in superior vena cava without pneumothorax. Bilateral mostly basilar airspace disease and small to moderate-sized pleural effusions present. Procedures: Intubation/mechanical ventilation Left subclavian central line placement Right radial arterial line placement Exploratory lap --> resection of terminal ileum/appendectomy 12/26/17: Patient underwent removal of temporary abdominal closure device, abdominal exploration, small bowel resection, resection of cecum and terminal ileum, primary anastomosis of ileum to ascending colon, which the tissue was compromised and the anastomosis failed, resection of anastomosis, placement of ileostomy, cholecystectomy and placement of temporary abdominal closure device. . Assessment and Plan - Disease Oriented Problem List (1) Ischemic bowel syndrome (2) Septic shock (3) Sepsis (4) Anemia (5) Hypoalbuminemia - Symptom Scale (1) Pain 0-10 Scale: Unable to quantify (Intubated, no signs of pain, on fentanyl 75 mcg/ h) (2) Dyspnea 0-10 Scale: Unable to quantify (Remains intubated on mechanical ventilation) (3) Encephalopathy 0-10 Scale: Unable to quantify Comment: Minimally responsive, sedated on mechanical ventilation. Pertinent Non-Medical Issues: Psychosocial: Originally from [place]. Moved to [facility] around 1991. High school graduate. 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 Two sons -- Yves and Don -- live locally and check in on her frequently. Spiritual: Catholic and spirituality have not played a large role in her life. She does not belong to any local max group. She does pray, however. Legal: No known advanced directive. Without a designated healthcare surrogate, her sons would be the joint proxy healthcare decision makers. Ethical issues impacting care: Patient is incapacitated to make her own healthcare decisions. It is currently unknown if she will regain capacity to do so. Important Contacts: Don Johnson (son and co-proxy) [phone] Yves Johnson (son and co-proxy) [phone] . Prognosis: Ms. Johnson is critically ill. She was in remarkably good shape for her age until about 2-3 weeks ago when her GI problems began, but she has gone into major surgery undernourished and post-operatively she is now hypotensive, bradycardic , and hypothermic. She is scheduled for additional surgery on 12/26/17. In spite of her relatively high level of functioning just weeks ago, she remains an grave risk of not surviving the hospitalization. Should she survive, the odds are that she would not get home again and would be either in a nursing facility or the hospital until her . At such time that patient or family feels that comfort measures only would be most in line with her goals, she would be eligible for hospice services. . Code Status: Full Code Plan: == Code Status: FULL CODE -- per conversation with son Don on 12/25/17, patient had a quality of life she would want to fight hard to preserve and would want an attempted resuscitation. Per conversation with Don on 12/26/17 , once patient is out of the perioperative period, he would want code status changed to ALTERNATE CODE with no chest compressions and no shock -- he wants to confirm with his brother. == Goals of medical treatment: Per son Don, patient would want aggressive care at this time except for code issues noted above. Should she not do well after surgery and doctors did not think there is a reasonable chance of returning her to life with some quality, she would not want to be maintained on machines. == Medical Decision making: There is no known written designation of healthcare surrogate. Per [place] statutes hierarchy, proxy medical decision making would fall jointly to her two sons--Don and Yves. == Symptoms * Pain: There were no known prehospitalization pain syndromes. Current sources of pain include her recent abdominal surgery; orotracheal and nasogastric intubations; vascular access lines; prolonged bedbound status; Castillo catheter. Currently sedated and on fentanyl infusion at 75 mcg/h. Pain most likely adequately addressed. No signs of pain noted. No further recommendations at this time. * Dyspnea: No known underlying lung disease. Current respiratory issues probably secondary to shock. Dyspnea being managed via intubation and mechanical ventilation. No further recommendations at this time. * Encephalopathy: No known underlying dementia. Encephalopathy is probably multifactorial with sepsis playing a large role. If we are able to get the patient through another surgery and treat her medical issues it is anticipated that encephalopathy will improve. == Son has not been able to find any advance directive in patient's papers at home. He is waiting for a call back from her tax attorney to see she has an advance directive on file with him. == Telephone call 12/29/17 to both patient's sons Alex Ochoa ([phone]) and Yves Johnson ([phone]), with no response, left voice messages with palliative care contact information. Patient`s son Don had indicated to palliative care on 12/26/17 that he would want code status to be changed to alternate code with no chest compressions and no shock perioperative and was going to discuss this matter with his brother Yves. == Case discussed with bedside RN. == At anytime goals of care should transition to "comfort measures only," patient would be eligible for hospice services. == Palliative care will continue to follow to assist with symptom management and to further clarify goals of medical treatment as the clinical course evolves. . Attestation Attestation: To help prompt me to consider important information that might be impacting today's encounter and assessment, information from prior notes written by myself or my colleagues may have been "brought forward" into today's note. My signature on this note, however, is an attestation that I personally performed the exam, history, and/or decision-making noted today, and, unless otherwise indicated, the interactions with patient, family, and staff as well as the review of records all occurred today. I also attest that the listed assessment and stated plan reflect my best clinical judgment today based on the combination of historical information, prior notes, and today's exam/ interactions. When time spent is documented, it refers only to time spent today by the signer, or if indicated, combined time spent today by collaborating physician/nurse practitioner.
[2017-12-29 17:54] LABS: Hematocrit 26.3 % (35.0-46.0); Hemoglobin 8.9 gm/dL (11.6-15.3); Mean Corpuscular HGB Conc 33.9 % (32.0-36.0); Mean Corpuscular Hemoglobin 32.7 pg (27.0-34.0); Mean Corpuscular Volume 96.4 fL (80.0-100.0); Mean Platelet Volume 10.6 fL (7.0-11.0); Platelet Count 106 th/mm3 (150-450); Red Blood Count 2.73 mil/mm3 (4.00-5.30); Red Cell Distribution Width 15.6 % (11.6-17.2); White Blood Count 8.8 th/mm3 (4.0-11.0)
[2017-12-29 18:31] LABS: Sodium 139 meq/L (136-145)
[2017-12-29 18:32] LABS: Alanine Aminotransferase 14 U/L (10-53); Albumin 1.2 g/dL (3.4-5.0); Alkaline Phosphatase 58 U/L (45-117); Anion Gap 7 meq/L (5-15); Aspartate Aminotransferase 25 U/L (15-37); Blood Urea Nitrogen 6 mg/dL (7-18); Calcium 6.8 mg/dL (8.5-10.1); Carbon Dioxide 24.7 meq/L (21.0-32.0); Chloride 107 meq/L (98-107); Glomerular Filtration Rate Greater Than 89 mL/min (>89); Glucose,Random 119 mg/dL (74-106); Potassium 3.8 meq/L (3.5-5.1); Total Protein 3.8 g/dL (6.4-8.2)
[2017-12-30] MEDS: Piperacil/Tazo 4.5 GM Premix 4.5 GM/100 ML BAG IV.SIG SCH ×4 (05:09→23:45)
[2017-12-30] MEDS: Oral Hygiene Kit OROPHARYNG SCH ×3 (05:10→17:59)
[2017-12-30] MEDS: Vasopressin Inj 40 UNIT in Sodium Chlor 0.9% Inj 98 ML IV.CONT SCH ×2 (05:50→11:02)
[2017-12-30 06:16] LABS: Hematocrit 21.3 % (35.0-46.0); Hemoglobin 7.1 gm/dL (11.6-15.3); Mean Corpuscular HGB Conc 33.6 % (32.0-36.0); Mean Corpuscular Hemoglobin 31.4 pg (27.0-34.0); Mean Corpuscular Volume 93.4 fL (80.0-100.0); Mean Platelet Volume 10.4 fL (7.0-11.0); Platelet Count 76 th/mm3 (150-450); Red Blood Count 2.28 mil/mm3 (4.00-5.30); Red Cell Distribution Width 15.2 % (11.6-17.2); White Blood Count 7.1 th/mm3 (4.0-11.0)
[2017-12-30 06:41] LABS: Anion Gap 10 meq/L (5-15); Blood Urea Nitrogen 5 mg/dL (7-18); Calcium 6.6 mg/dL (8.5-10.1); Carbon Dioxide 22.9 meq/L (21.0-32.0); Chloride 106 meq/L (98-107); Glomerular Filtration Rate Greater Than 89 mL/min (>89); Glucose,Random 109 mg/dL (74-106); Magnesium 1.7 mg/dL (1.5-2.5); Phosphorus 2.7 mg/dL (2.5-4.9); Potassium 3.4 meq/L (3.5-5.1); Sodium 139 meq/L (136-145)
[2017-12-30 07:28] LABS: Total Protein 3.2 g/dL (6.4-8.2)
--- NOTE | 2017-12-30 07:49 | ECG ---
Date Performed: 12/29/2017 Time Performed: 11:22:36 PTAGE: 87 years EKG: Atrial fibrillation with rapid ventricular response. Generalized low QRS voltages Abnormal ECG Since the PREVIOUS TRACING , no significant change noted DOCTOR: Valerie Graham Interpretating Date/Time 12/30/2017 07:47:51
[2017-12-30] MEDS: Potassium Chlor 40 mEq Premix 40 MEQ/100 ML PIGGYBACK IV.SIG PRN (08:28)
[2017-12-30] MEDS: Dextrose 5%/Lactated Ringer's 1,000 ML IV.CONT SCH ×2 (08:29→16:16)
[2017-12-30] MEDS: Chlorhexidine 0.12% Oral Kit 15 ML UDC OROPHARYNG SCH ×2 (08:49→20:53)
[2017-12-30] MEDS ORDERED: Magnesium Sulfate Inj 2 GM in Sodium Chlor 0.9% Inj 96 ML IV.SIG ONE (09:00)
--- NOTE | 2017-12-30 09:16 | P.PNCC ---
Subjective Subjective Remarks/Hospital Course: 87yF originally admitted for abdominal pain and now found to have perforated hollow viscus with intra-abdominal free air. taken to OR emergently by Dr. Aldrich for exploratory laparotomy where they found small bowel perforation. small bowel was resected and due to significantly poor patient tissue and gross contamination of the field, patient was left in discontinuity with an open abdomen. arrives to the ICU intubated, critically ill, on vasopressors, in shock. sedated. no additional information is available from the patient; ROS unobtainable. 12/25: She remains oliguric and septic. We are unable to separate her from mechanical ventilation and are still correcting her metabolic acidosis. Pre- albumin of 5 implicates poor preoperative nutrition. Description of bowel from surgery lens support for a severely debilitated state prior to surgery. She is presently hemodynamically unstable and oliguric. 12/26: Magnesium, phosphate, potassium all low; presently being replaced. Persistent septic pattern. Scheduled for second look operation later today, anticipate discouraging findings. Acid-base balance acceptable in gas exchange good. Update: Back from OR. Well perfused. Clear lungs. Base -6. Urine acceptable. 12/27: Back from surgery yesterday with end ileostomy fashioned. Abdomen remains open with VAC dressing in place. Acid-base balance modestly improved and acceptable. Urine output acceptable and renal function remains close to normal. She remains hemodynamically unstable and rate wiring levo fed at 9 mcg/ min; typical of the smoldering septic picture. 12/28: Renal function remains acceptable. Requiring ongoing vasopressor support with Levophed. Acid-base balance largely corrected. Ileostomy is well perfused and functioning. Plan is to attempt to close the abdomen tomorrow. Blood sugar has twice dropped into the 20s when glucose containing IV solutions have all been stopped. Plan to start tube feeds when OK with surgical service. Please keep glucose containing solution running during operative procedures 12/29: Patient seen after OR. Abdomen closed, new J-tube in place. Ileostomy pink. Still requiring high-dose Levophed currently at 10 mcg/min. No hypoglycemia reported. For OR report is pending. Developed paroxysmal A. fib postop. Replace potassium and magnesium, give metoprolol as needed IV 12/30: Remains intubated sedated. Patient had episode of hypotension overnight. Currently still on vasopressin 0.04 IU. Hemoglobin is 7.1 I have ordered stat 1 unit PRBC. Remains on amiodarone currently sinus rhythm. Opens eyes to stimulation moves extremities purposefully Objective Vital Signs / I&O: Vital Signs 12/29/17 11:22 12/29/17 12:00 12/29/17 16:00 Temperature 96.1 F L 98.4 F Pulse Rate 100 H 114 H Respiratory Rate 17 15 15 Blood Pressure 146/72 H 136/56 L Pulse Oximetry 99 100 100 12/29/17 16:48 12/29/17 20:00 12/29/17 20:30 Temperature 98.4 F Pulse Rate 98 H Respiratory Rate 15 15 15 Blood Pressure 150/62 H Pulse Oximetry 95 96 96 12/30/17 00:00 12/30/17 01:32 12/30/17 04:00 Temperature 96.4 F L 97.2 F L Pulse Rate Respiratory Rate 15 15 15 Blood Pressure 117/47 L 114/52 L Pulse Oximetry 97 99 100 12/30/17 04:58 12/30/17 07:45 Temperature Pulse Rate Respiratory Rate 15 15 Blood Pressure Pulse Oximetry 100 100 Intake & Output 12/29/17 12/30/17 12/30/17 18:59 06:59 18:59 Intake Total 2460 / 2460 2360 / 2360 350 / 350 Output Total 955 / 955 1250 / 1250 Balance 1505 / 1505 1110 / 1110 350 / 350 Weight 86.6 kg Intake: IV 2260 / 2260 2360 / 2360 350 / 350 D5W/LR Inj 1,000 ML @ 125 mls/ 1000 / 1000 2000 / 2000 hr IV.CONT .Q8H [facility] Rx#: [id number] Diprivan 1000 mg/100 ml Inj 1, 140 / 140 60 / 60 000 mg In 100 ml @ 5 MCG/KG/MIN 2.049 mls/hr IV.CONT TITRATE PRN Rx#:[id number] Magnesium Sulfate 1 gm/D5W 100 200 / 200 ml Premix 100 ML @ 100 mls/hr IV.SIG Q1H [facility] Rx#:[id number] Magnesium Sulfate Inj 2 GM In 100 / 100 NS Inj 96 ML @ 50 mls/hr IV.SIG UNSCH PRN Rx#:[id number] Levophed-Dextrose 4 mg/250 ml 470 / 470 0 / 0 Drip 4 mg In 250 ml @ 2 MCG/MIN 7.5 mls/hr IV.SIG TITRATE PRN Rx#:[id number] Zosyn 4.5 GM Premix 4.5 gm In 100 / 100 300 / 300 100 ml @ 200 mls/hr IV.SIG Q6H [facility] Rx#:[id number] fentaNYL 10 mcg/mL Premix Drip 250 / 250 2,500 mcg In 250 ml @ 50 MCG/HR 5 mls/hr IV.SIG TITRATE PRN Rx #:[id number] Anesthesia Amount 200 / 200 Output: Estimated Blood Loss 5 / 5 Urine Amount (Catheter) 800 / 800 550 / 550 Indwelling Urethral Catheter 800 / 800 550 / 550 Stool Amount (Stoma) 150 / 150 600 / 600 Right Lower Abdomen 150 / 150 600 / 600 Gastric Drainage 100 / 100 Left Upper Quadrant Gastrostomy 100 / 100 Tube (PEG) Nasogastric Tube 0 / 0 Other: Date of Last Bowel Movement 12/18/17 12/18/17 Result Diagrams: 12/30/17 05:55 12/30/17 05:55 Objective Remarks: GENERAL: Frail, elderly female, intubated, sedated, critically ill, on mechanical ventilation SKIN: Well-perfused. HEENT: Oral tracheal intubation. ZACARIAS CARDIOVASCULAR: NSR regular rhythm. sinus. no JVD. Currently on vasopressin 0.04 international units, amiodarone infusion per protocol RESPIRATORY: Equal chest rise. no wheezes. decreased breath sounds in bases. good bilateral air entry. GASTROINTESTINAL: Abdomen closed today, midline incision dressing intact. Ostomy pink. G-tube in place MUSCULOSKELETAL: No obvious deformities. No clubbing or cyanosis. No edema. NEUROLOGICAL: Intubated, sedated. RASS -2. Withdraws to pain x 4. Opens eyes to stimulation, did not follow commands while on sedation but does follow when sedation is lightened Procedures: Laparotomy and bowel resection 12/24 Laparotomy and ileostomy formation 12/26 Intubation and mechanical ventilation Assessment and Plan - Problem List (1) Respiratory failure requiring intubation Code(s): J96.90 - Respiratory failure, unspecified, unspecified whether with hypoxia or hypercapnia Status: Acute (2) Septic shock Code(s): A41.9 - Sepsis, unspecified organism; R65.21 - Severe sepsis with septic shock Status: Acute (3) Hypoglycemia Code(s): E16.2 - Hypoglycemia, unspecified Status: Acute (4) Non-STEMI (non-ST elevated myocardial infarction) Code(s): I21.4 - Non-ST elevation (NSTEMI) myocardial infarction Status: Acute (5) Free intraperitoneal air Code(s): K66.8 - Other specified disorders of peritoneum Status: Acute (6) Acute abdomen Code(s): R10.0 - Acute abdomen Status: Acute (7) Elevated lactic acid level Code(s): R79.89 - Other specified abnormal findings of blood chemistry Status : Acute (8) Ischemic bowel syndrome Code(s): K55.9 - Vascular disorder of intestine, unspecified Status: Acute - Assessment and Plan Plan: Assessment: 87yF with perforated small bowel now s/p emergent exploratory laparotomy, small bowel resection, left in discontinuity with open abdomen. iv antibiotics, vasopressors, iv fluid resuscitation. Critically ill. Went to OR today 12/29/2017 for abdomen closure. Plan by systems: Neurologic: Acute metabolic encephalopathy Propofol and fentanyl for goal RASS -2 Start reducing sedation, start daily sedation location Respiratory: Acute hypoxic and hypercarbic respiratory failure Vent bundle, Head of bed elevated, Nebs Wean FiO2 for goal SPO2 greater than 90% Start spontaneous breathing trials, as tolerated Cardiovascular: Septic shock Paroxysmal A. fib with RVR Vasopressin 0.04 for goal map greater than 65 Metoprolol 2.5 mg IV every 6 hours as needed for heart rate more than 120 Cannot anticoagulate for A. fib due to recent surgery, discontinue amiodarone IV digoxin 0.25 mg 1 given 12/29/2017 Keep magnesium more than 2.2, keep potassium more than 4 IV fluid resuscitation which is ongoing, on D5 LR at 125 ml per hour, reduce to 50 mL/h Renal: Acute kidney injury Likely secondary to septic shock and volume depletion in the setting of small bowel perforation Continue Hankins, Frequent urine checks, Daily BMP Maintenance fluid resuscitation currently on D5 to prevent hypoglycemia -- Strict I/Os Creatinine has normalized FEN/GI: Small bowel perforation Intra-abdominal sepsis Severe acute protein calorie malnutrition Hypocalcemia Hypomagnesemia Strict n.p.o. status post OR and s/p abdominal closure 12/30/17 Ileostomy pink, new G-tube in place. Tube feeds when cleared by general surgery ICU electrolyte protocol Antibiotics as described below Dr. Aldrich following Maintenance fluids D5 LR at 125 cc an hour-reduce to 75 mL/h Heme/ID: Anemia secondary to acute blood loss Septic shock Intra-abdominal sepsis Status post 1 unit PRBCs in the OR. Additional 1 unit PRBC today stat Daily CBC Continue Zosyn IV Follow-up cultures-negative to date Repeat hemoglobin in the afternoon after transfusion Endocrine: Hypoglycemia Hyperglycemia of critical illness Hypomagnesemia Hypokalemia -- SSI -Aggressive electrolyte replacement -Prone to hypoglycemia if sugar not added to maintenance IV fluids. Prophylaxis: GI Prophylaxis PPI IV DVT Prophylaxis -- SCDs Subcu heparin-hold immediate post op period due to anemia Lines: 12/24 radial arterial line 12/24 left subclavian triple-lumen catheter 12/24 Hankins Overall impression: This woman remains critically ill following damage control surgery for spontaneous perforation of the bowel and peritonitis. She returned to the OR on 12/26 for ileostomy construction, return to OR again 12/29/2017 for abdominal wound closure and G tube placement. She is hemodynamically unstable requiring vasopressor therapy and mechanical ventilation. She remains in septic shock and tenuous. Critical care time 35 minutes aside from invasive procedures. Code Status: Full
[2017-12-30] MEDS: Propofol 1000 mg/100 ml Inj 1,000 MG/100 ML BOTTLE IV.CONT PRN (11:01)
--- NOTE | 2017-12-30 11:12 | P.PNGS ---
Subjective Interval history: DAILY PROGRESS NOTE FOR SURGICAL ATTENDING, DR. ROYA NAVA Intubated/Sedated HARPAL Pérez and Yanely at bedside Patient going to get PRBCs today Physical Exam Vital signs: Vital Signs 12/29/17 11:22 12/29/17 12:00 12/29/17 16:00 Temperature 96.1 F L 98.4 F Pulse Rate 100 H 114 H Respiratory Rate 17 15 15 Blood Pressure 146/72 H 136/56 L Pulse Oximetry 99 100 100 12/29/17 16:48 12/29/17 20:00 12/29/17 20:30 Temperature 98.4 F Pulse Rate 98 H Respiratory Rate 15 15 15 Blood Pressure 150/62 H Pulse Oximetry 95 96 96 12/30/17 00:00 12/30/17 01:32 12/30/17 04:00 Temperature 96.4 F L 97.2 F L Pulse Rate Respiratory Rate 15 15 15 Blood Pressure 117/47 L 114/52 L Pulse Oximetry 97 99 100 12/30/17 04:58 12/30/17 07:45 12/30/17 08:00 Temperature 98.0 F Pulse Rate 78 Respiratory Rate 15 15 15 Blood Pressure 113/50 L Pulse Oximetry 100 100 100 Intake & Output 12/29/17 12/30/17 12/30/17 18:59 06:59 18:59 Intake Total 2460 / 2460 2360 / 2360 825 / 825 Output Total 955 / 955 1250 / 1250 Balance 1505 / 1505 1110 / 1110 825 / 825 Weight 86.6 kg Intake: IV 2260 / 2260 2360 / 2360 825 / 825 Cordarone Inj 450 MG In D5W Inj 175 / 175 241 ML @ 1 MG/MIN 33.33 mls/hr IV.CONT TITRATE PRN Rx#: [id number] D5W/LR Inj 1,000 ML @ 125 mls/ 1000 / 1000 2000 / 2000 hr IV.CONT .Q8H [facility] Rx#: [id number] Diprivan 1000 mg/100 ml Inj 1, 140 / 140 60 / 60 100 / 100 000 mg In 100 ml @ 5 MCG/KG/MIN 2.049 mls/hr IV.CONT TITRATE PRN Rx#:[id number] Pitressin Inj 40 UNIT In NS Inj 100 / 100 98 ML @ 0.04 UNITS/MIN 6 mls/ hr IV.CONT CONT [facility] Rx#: [id number] Magnesium Sulfate 1 gm/D5W 100 200 / 200 ml Premix 100 ML @ 100 mls/hr IV.SIG Q1H [facility] Rx#:[id number] Magnesium Sulfate Inj 2 GM In 100 / 100 NS Inj 96 ML @ 50 mls/hr IV.SIG UNSCH PRN Rx#:[id number] Levophed-Dextrose 4 mg/250 ml 470 / 470 0 / 0 Drip 4 mg In 250 ml @ 2 MCG/MIN 7.5 mls/hr IV.SIG TITRATE PRN Rx#:[id number] Zosyn 4.5 GM Premix 4.5 gm In 100 / 100 300 / 300 100 ml @ 200 mls/hr IV.SIG Q6H [facility] Rx#:[id number] fentaNYL 10 mcg/mL Premix Drip 250 / 250 2,500 mcg In 250 ml @ 50 MCG/HR 5 mls/hr IV.SIG TITRATE PRN Rx #:[id number] Anesthesia Amount 200 / 200 Output: Estimated Blood Loss 5 / 5 Urine Amount (Catheter) 800 / 800 550 / 550 Indwelling Urethral Catheter 800 / 800 550 / 550 Stool Amount (Stoma) 150 / 150 600 / 600 Right Lower Abdomen 150 / 150 600 / 600 Gastric Drainage 100 / 100 Left Upper Quadrant Gastrostomy 100 / 100 Tube (PEG) Nasogastric Tube 0 / 0 Other: Date of Last Bowel Movement 12/18/17 12/18/17 Narrative: Intubated/Sedated Abd: midline incision with dressing---serous drainage noted; ileostomy in place- --dusky stoma --stool in bag; G tube to gravity - Urinary Catheter Management Indwelling Urethral Catheter Cath placed during this visit: yes Reason for continuing: Acute urinary retention Insertion date: 12/24/17 Insertion time: 20:15 Assessment and Plan - Assessment (1) Acute abdomen Code(s): R10.0 - Acute abdomen Status: Acute (2) Free intraperitoneal air Code(s): K66.8 - Other specified disorders of peritoneum Status: Acute Plan: 87 year old female s/p lap converted to ex lap; resection of nonviable small bowel; ileostomy; POD1 ex lap; placement of G tube; closure of abdomen -[facility] following--- wean vent as tolerated -Will start trickle feed through G tube -Wean pressors as tolerated -Palliative Care following -Discussed with HARPAL Pérez and Yanely at bedside (3) Enteritis Code(s): K52.9 - Noninfective gastroenteritis and colitis, unspecified Status : Acute (4) History of esophageal reflux Code(s): Z87.19 - Personal history of other diseases of the digestive system Status: Chronic (5) Elevated lactic acid level Code(s): R79.89 - Other specified abnormal findings of blood chemistry Status : Acute (6) Dehydration Code(s): E86.0 - Dehydration Status: Acute (7) Sepsis Code(s): A41.9 - Sepsis, unspecified organism Status: Acute (8) Hypomagnesemia Code(s): E83.42 - Hypomagnesemia Status: Acute (9) Hypertension Code(s): I10 - Essential (primary) hypertension Status: Chronic - Attending Attestation Patient seen in the ICU with the son at the bedside Tolerating trickle tube feeds Weaning ventilator NOTE FOR SURGICAL ATTENDING, DR. ROYA NAVA I agree with above assessment and plan. The exam, history, and the medical decision-making described in the above note were completed with the assistance of the mid-level provider. I reviewed and agree with the findings presented. I attest that I had a [id number] encounter with the patient on the same day, and personally performed and documented my assessment and findings in the medical record. The following services were provided during this hospital visit: Chart data review, vital sign assessments/reviewing monitor data Review of consultations notes if present. Medication orders/review and/or management Ordering and/or reviewing lab tests Ordering and/or interpreting/reviewing x-rays and/or diagnostic studies Care of the patient and discussion of the patient with the care team Documentation time To help prompt me to consider important information that might be impacting today's encounter and assessment, Information from prior notes written by myself or my colleagues may have been "brought forward/copy and pasted" into today's note. (7) Sepsis Qualifiers: Qualified Code(s): A41.9 - Sepsis, unspecified organism (9) Hypertension Qualifiers: Qualified Code(s): I10 - Essential (primary) hypertension
[2017-12-30] MEDS: fentaNYL 10 mcg/mL Premix Drip 2,500 MCG/250 ML BAG IV.SIG PRN (13:31)
[2017-12-30] MEDS ORDERED: Potassium Chlor 40 mEq Premix 40 MEQ/100 ML PIGGYBACK IV.SIG ONE (15:00)
--- NOTE | 2017-12-30 16:38 | P.PNPAL ---
Reason for Visit Reason for visit: a. To assist with evaluation and management of symptoms including: pain; dyspnea; encephalopathy b. To assist medical decision maker(s) with: better understanding of current medical conditions; weighing benefits/burdens of medical treatment options; making medical treatment decisions. Subjective Subjective/Interval History: Follow-up medically necessary for clarification of goals of medical treatment. Patient remains on [facility], intubated and lightly sedated. She is on Fentanyl infusion on 25mcg/hr and Propofol was discontinued. Per bedside RN, plan is to try patient on spontaneous breathing trials. Patient was hypotensive at one point during the night. Levophed infusion was weaned off and she currently has Vasopressin infusing at 0.04 units/min. Amiodarone infusion discontinued, patient is now in sinus rhythm. Patient is arousable, following simple commands. Patient`s hemoglobin today 7.1- 1 unit pRBC to be transfused. Per surgery- starting trickle feeding via gastrostomy tube. Met with patient`s son Don in the [facility] waiting room. Updated him on patient`s medical status. Don has already spoke to nursing staff earlier today and requested code status to be changed to alternate code and Dr. Israel changed the code status. Patient`s son hopeful for patient`s recovery though he understands that patient is critically ill. Patient`s son expressing how difficult his mother`s illness is for him because he lost his in 2014 and in the end she also had a colostomy and a feeding tube. Provided empathetic listening as he expressed how he felt regarding his mother`s current medical situation. Palliative care contact information provided. Family/Friend Interactions: Brief discussion with patient`s son Don. Advance Directives Living Will: Never completed Health Care Surrogate: Never completed Durable Power of Aluminum Shingle Roofer: Never completed Documented care wishes:: No written documentation of health care goals/preferences . Significant change in goals:: Change of code status to alternate code. . Objective Vital Signs: Vital Signs 12/29/17 16:00 12/29/17 16:48 12/29/17 20:00 Temperature 98.4 F 98.4 F Pulse Rate 114 H 98 H Respiratory Rate 15 15 15 Blood Pressure 136/56 L 150/62 H Pulse Oximetry 100 95 96 12/29/17 20:30 12/30/17 00:00 12/30/17 01:32 Temperature 96.4 F L Pulse Rate Respiratory Rate 15 15 15 Blood Pressure 117/47 L Pulse Oximetry 96 97 99 12/30/17 04:00 12/30/17 04:58 12/30/17 07:45 Temperature 97.2 F L Pulse Rate Respiratory Rate 15 15 15 Blood Pressure 114/52 L Pulse Oximetry 100 100 100 12/30/17 08:00 12/30/17 11:28 12/30/17 11:41 Temperature 98.0 F 98.2 F Pulse Rate 78 78 Respiratory Rate 15 15 15 Blood Pressure 113/50 L 132/53 L Pulse Oximetry 100 100 100 12/30/17 11:44 12/30/17 12:18 12/30/17 15:36 Temperature 98.2 F Pulse Rate 78 Respiratory Rate 15 15 15 Blood Pressure 132/51 L Pulse Oximetry 100 100 Intake & Output 12/29/17 12/30/17 12/30/17 18:59 06:59 18:59 Intake Total 2460 / 2460 2360 / 2360 1375 / 1375 Output Total 955 / 955 1250 / 1250 Balance 1505 / 1505 1110 / 1110 1375 / 1375 Weight 86.6 kg Intake: IV 2260 / 2260 2360 / 2360 1375 / 1375 Cordarone Inj 450 MG In D5W Inj 175 / 175 241 ML @ 1 MG/MIN 33.33 mls/hr IV.CONT TITRATE PRN Rx#: [id number] D5W/LR Inj 1,000 ML @ 125 mls/ 1000 / 1000 2000 / 2000 hr IV.CONT .Q8H JUANITA Rx#: [id number] Diprivan 1000 mg/100 ml Inj 1, 140 / 140 60 / 60 100 / 100 000 mg In 100 ml @ 5 MCG/KG/MIN 2.049 mls/hr IV.CONT TITRATE PRN Rx#:[id number] Pitressin Inj 40 UNIT In NS Inj 100 / 100 98 ML @ 0.04 UNITS/MIN 6 mls/ hr IV.CONT CONT JUANITA Rx#: [id number] Magnesium Sulfate 1 gm/D5W 100 200 / 200 ml Premix 100 ML @ 100 mls/hr IV.SIG Q1H JUANITA Rx#:[id number] Magnesium Sulfate Inj 2 GM In 100 / 100 100 / 100 NS Inj 96 ML @ 50 mls/hr IV.SIG ONCE ONE Rx#:[id number] Levophed-Dextrose 4 mg/250 ml 470 / 470 0 / 0 Drip 4 mg In 250 ml @ 2 MCG/MIN 7.5 mls/hr IV.SIG TITRATE PRN Rx#:[id number] Zosyn 4.5 GM Premix 4.5 gm In 100 / 100 300 / 300 100 / 100 100 ml @ 200 mls/hr IV.SIG Q6H JUANITA Rx#:[id number] KCl 40 mEq Premix Inj 40 meq In 100 / 100 100 ml @ 25 mls/hr IV.SIG UNSCH PRN Rx#:[id number] fentaNYL 10 mcg/mL Premix Drip 250 / 250 250 / 250 2,500 mcg In 250 ml @ 50 MCG/HR 5 mls/hr IV.SIG TITRATE PRN Rx #:[id number] Anesthesia Amount 200 / 200 Intake (Blood Product) Amt 0 / 0 Rbc As-3 Leukoreduced Unit 0 / 0 [id number] Output: Estimated Blood Loss 5 / 5 Urine Amount (Catheter) 800 / 800 550 / 550 Indwelling Urethral Catheter 800 / 800 550 / 550 Stool Amount (Stoma) 150 / 150 600 / 600 Right Lower Abdomen 150 / 150 600 / 600 Gastric Drainage 100 / 100 Left Upper Quadrant Gastrostomy 100 / 100 Tube (PEG) Nasogastric Tube 0 / 0 Other: Date of Last Bowel Movement 12/18/17 12/18/17 Physical Exam: CONSTITUTIONAL/GENERAL: This is an adequately nourished patient; lightly sedated on mechanical ventilation. TUBES/LINES/DRAINS: orotracheal tube; nasogastric tube; right radial arterial line; left subclavian central line; castillo catheter; soft wrist restraints; Gastrostomy tube, SCDs. SKIN: No jaundice, rashes, or lesions. abdominal surgical wound covered with a primapore dressing. Skin temperature appropriate. Not diaphoretic. HEAD: Atraumatic. Normocephalic. EYES: Pupils equal and round. Extraocular motions could not be assessed. No scleral icterus. No injection or drainage. Fundi not examined. ENT: Hearing normal. Nose without bleeding or purulent drainage. Moist oral mucosa. NECK: Trachea midline. CARDIOVASCULAR: Regular rate and rhythm without murmurs, gallops, or rubs. No JVD. Peripheral pulses symmetric. RESPIRATORY/CHEST: Symmetric, unlabored respirations. Clear to auscultation. Breath sounds equal bilaterally. No wheezes, rales, or rhonchi. GASTROINTESTINAL: Midline abdominal wound with dressing intact-has an abdominal binder. Gastrostomy tube to gravity. Intermittent bowel sounds GENITOURINARY: Without palpable bladder distension. Castillo catheter in place. MUSCULOSKELETAL: Extremities without clubbing, cyanosis, or edema. SCDs in place. No mottling. NEUROLOGICAL: Opening eyes to voice/exam. Following simple commands with all 4 extremities. Weak. PSYCHIATRIC: Unable to assess. Appears calm . Diagnostic Tests Laboratory: Laboratory Results - last 72 hr 12/24/17 12/27/17 12/27/17 20:13 18:31 22:32 WBC RBC Hgb Hct MCV MCH MCHC RDW Plt Count MPV Sodium Potassium Chloride Carbon Dioxide Anion Gap BUN Creatinine Estimated GFR POC Glucose 88 120 H Random Glucose Calcium Prot Corrected Calcium Phosphorus Magnesium Total Bilirubin AST ALT Alkaline Phosphatase C-Reactive Protein Total Protein Albumin IgG IgA IgM HAILEY Screen Blood Type Antibody Screen MTS Gel Crossmatch See Detail 12/28/17 12/28/17 12/28/17 05:15 05:15 14:45 WBC 15.0 H RBC 3.06 L Hgb 9.4 L Hct 28.8 L MCV 94.1 MCH 30.7 MCHC 32.7 RDW 15.9 Plt Count 125 L MPV 9.4 Sodium 141 Potassium 3.4 L Chloride 110 H Carbon Dioxide 21.7 Anion Gap 9 BUN 7 Creatinine 0.79 Estimated GFR 83 L POC Glucose 64 L Random Glucose 129 H Calcium 6.5 L* Prot Corrected Calcium 8.4 L Phosphorus 2.4 L Magnesium 1.3 L Total Bilirubin AST ALT Alkaline Phosphatase C-Reactive Protein Total Protein 3.6 L Albumin IgG IgA IgM HAILEY Screen Blood Type Antibody Screen MTS Gel Crossmatch 12/28/17 12/28/17 12/28/17 14:51 15:40 18:46 WBC RBC Hgb Hct MCV MCH MCHC RDW Plt Count MPV Sodium Potassium Chloride Carbon Dioxide Anion Gap BUN Creatinine Estimated GFR POC Glucose 76 64 L Random Glucose 114 H Calcium Prot Corrected Calcium Phosphorus Magnesium Total Bilirubin AST ALT Alkaline Phosphatase C-Reactive Protein Total Protein Albumin IgG IgA IgM HAILEY Screen Blood Type Antibody Screen MTS Gel Crossmatch 12/28/17 12/28/17 12/29/17 18:48 19:02 05:05 WBC 10.2 RBC 2.94 L Hgb 9.2 L Hct 27.6 L MCV 94.0 MCH 31.2 MCHC 33.2 RDW 15.7 Plt Count 108 L MPV 9.6 Sodium Potassium 3.8 Chloride Carbon Dioxide Anion Gap BUN Creatinine Estimated GFR POC Glucose 85 Random Glucose Calcium Prot Corrected Calcium Phosphorus 3.7 D Magnesium 1.5 Total Bilirubin AST ALT Alkaline Phosphatase C-Reactive Protein Total Protein Albumin IgG IgA IgM HAILEY Screen Blood Type Antibody Screen MTS Gel Crossmatch 12/29/17 12/29/17 12/29/17 05:05 05:05 05:05 WBC RBC Hgb Hct MCV MCH MCHC RDW Plt Count MPV Sodium 139 Potassium 3.5 Chloride 108 H Carbon Dioxide 22.2 Anion Gap 9 BUN 6 L Creatinine 0.69 Estimated GFR Greater than 89 POC Glucose Random Glucose 99 Calcium 6.8 L* Prot Corrected Calcium 8.7 Phosphorus 3.1 Magnesium 1.4 L Total Bilirubin AST ALT Alkaline Phosphatase C-Reactive Protein 15.50 H Total Protein 3.7 L Albumin IgG 999 IgA 208 IgM 33 L HAILEY Screen Neg Blood Type Antibody Screen MTS Gel Crossmatch 12/29/17 12/29/17 12/29/17 08:30 17:20 17:20 WBC 8.8 RBC 2.73 L Hgb 8.9 L Hct 26.3 L MCV 96.4 MCH 32.7 MCHC 33.9 RDW 15.6 Plt Count 106 L MPV 10.6 Sodium 139 Potassium 3.8 Chloride 107 Carbon Dioxide 24.7 Anion Gap 7 BUN 6 L Creatinine 0.72 Estimated GFR Greater than 89 POC Glucose Random Glucose 119 H Calcium 6.8 L* Prot Corrected Calcium 8.6 Phosphorus Magnesium 2.0 D Total Bilirubin 0.6 AST 25 ALT 14 Alkaline Phosphatase 58 C-Reactive Protein Total Protein 3.8 L Albumin 1.2 L IgG IgA IgM HAILEY Screen Blood Type O Positive Antibody Screen Negative MTS Gel Crossmatch 12/30/17 12/30/17 12/30/17 05:55 05:55 08:13 WBC 7.1 RBC 2.28 L Hgb 7.1 L Hct 21.3 L MCV 93.4 MCH 31.4 MCHC 33.6 RDW 15.2 Plt Count 76 L MPV 10.4 Sodium 139 Potassium 3.4 L Chloride 106 Carbon Dioxide 22.9 Anion Gap 10 BUN 5 L Creatinine 0.72 Estimated GFR Greater than 89 POC Glucose Random Glucose 109 H Calcium 6.6 L* Prot Corrected Calcium 8.8 Phosphorus 2.7 Magnesium 1.7 Total Bilirubin AST ALT Alkaline Phosphatase C-Reactive Protein Total Protein 3.2 L D Albumin IgG IgA IgM HAILEY Screen Blood Type Antibody Screen MTS Gel Crossmatch See Detail Result Diagrams: 12/30/17 05:55 12/30/17 05:55 Microbiology: Microbiology 12/25/17 02:59 Aerobic Blood Culture - Final Blood - Peripheral No growth in 5 days Anaerobic Blood Culture - Final No growth in 5 days 12/25/17 00:50 Aerobic Blood Culture - Final Blood - Peripheral No growth in 5 days Anaerobic Blood Culture - Final No growth in 5 days Imaging: Abdomen X-Ray 12/24/17 00:00 CONCLUSION: Dilated small bowel with collapse of the colon most characteristic of small bowel obstructive process. Calcific atherosclerotic vascular disease Abdomen/Pelvis CT 12/24/17 00:00 CONCLUSION: 1. Small to moderate amount of free air of concern for ruptured viscus. 2. Abnormal bowel gas pattern with dilated loops of small bowel and air-fluid levels most characteristic of a small bowel obstruction. 3. Moderate diverticulosis present. These findings were called to Dr. Aldrich at 1839 hours. Chest X-Ray 12/24/17 23:04 CONCLUSION: Left central line tip in superior vena cava without pneumothorax. Bilateral mostly basilar airspace disease and small to moderate-sized pleural effusions present. Procedures: Intubation/mechanical ventilation Left subclavian central line placement Right radial arterial line placement Exploratory lap --> resection of terminal ileum/appendectomy 12/26/17: Patient underwent removal of temporary abdominal closure device, abdominal exploration, small bowel resection, resection of cecum and terminal ileum, primary anastomosis of ileum to ascending colon, which the tissue was compromised and the anastomosis failed, resection of anastomosis, placement of ileostomy, cholecystectomy and placement of temporary abdominal closure device. . Assessment and Plan - Disease Oriented Problem List (1) Ischemic bowel syndrome (2) Septic shock (3) Sepsis (4) Anemia (5) Hypoalbuminemia - Symptom Scale (1) Pain 0-10 Scale: Unable to quantify (on Fentanyl infusion at 25mcg/hr. Not showing signs of pain) (2) Dyspnea 0-10 Scale: Unable to quantify (3) Encephalopathy 0-10 Scale: Unable to quantify Comment: Minimally responsive, sedated on mechanical ventilation. Pertinent Non-Medical Issues: Psychosocial: Originally from [place]. Moved to [place] permanently around 1991. High school graduate. 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 Two sons -- Lynda -- live locally and check in on her frequently. Spiritual: [employer] and spirituality have not played a large role in her life. She does not belong to any local max group. She does pray, however. Legal: No known advanced directive. Without a designated healthcare surrogate, her sons would be the joint proxy healthcare decision makers. Ethical issues impacting care: Patient is incapacitated to make her own healthcare decisions. It is currently unknown if she will regain capacity to do so. Important Contacts: Don Johnson (son and co-proxy) [phone] Yves Johnson (son and co-proxy) [phone] . Prognosis: Ms. Johnson is critically ill. She was in remarkably good shape for her age until about 2-3 weeks ago when her GI problems began, but she has gone into major surgery undernourished and post-operatively she is now hypotensive, bradycardic , and hypothermic. She is scheduled for additional surgery on 12/26/17. In spite of her relatively high level of functioning just weeks ago, she remains an grave risk of not surviving the hospitalization. Should she survive, the odds are that she would not get home again and would be either in a nursing facility or the hospital until her . At such time that patient or family feels that comfort measures only would be most in line with her goals, she would be eligible for hospice services. . Code Status: Alternative Code (No chest compressions, No shock) Plan: == Code Status: Alternative Code- No chest compressions, No shock. == Goals of medical treatment: Per discussion with patient`s son Don, Goals remain aggressive care. However, today he has requested code status to be changed to alternate code as discussed before. Patient`s son is hopeful that patient may pull through but if she deteriorates and the medical team feels that there is no chance of patient getting back to what she was prior to hospitalization with reasonable quality of life, he knows that patient would not want her life sustained on machines. == Medical Decision making: There is no known written designation of healthcare surrogate. Per [place] statutes hierarchy, proxy medical decision making would fall jointly to her two sons--Don and Yves. == Symptoms * Pain: There were no known prehospitalization pain syndromes. Current sources of pain include her recent abdominal surgery; orotracheal and nasogastric intubations; vascular access lines; prolonged bedbound status; Castillo catheter. Currently on fentanyl infusion at 25 mcg/h. Pain most likely adequately addressed. No signs of pain noted. No further recommendations at this time. * Dyspnea: No known underlying lung disease. Current respiratory issues probably secondary to shock. Dyspnea being managed via intubation and mechanical ventilation. Patient being weaned off sedation with plans to start spontaneous breathing trials per nursing staff. No further recommendations at this time. * Encephalopathy: No known underlying dementia. Encephalopathy is probably multifactorial with sepsis playing a large role. If we are able to get the patient through another surgery and treat her medical issues it is anticipated that encephalopathy will improve. Patient is following simple commands today on light sedation. == Son has not been able to find any advance directive in patient's papers at home. He is waiting for a call back from her caramel candy maker to see she has an advance directive on file with him. == Case discussed with bedside RN Ale. == At anytime goals of care should transition to "comfort measures only," patient would be eligible for hospice services. == Palliative care will continue to follow to assist with symptom management and to further clarify goals of medical treatment as the clinical course evolves. . Attestation Attestation: To help prompt me to consider important information that might be impacting today's encounter and assessment, information from prior notes written by myself or my colleagues may have been "brought forward" into today's note. My signature on this note, however, is an attestation that I personally performed the exam, history, and/or decision-making noted today, and, unless otherwise indicated, the interactions with patient, family, and staff as well as the review of records all occurred today. I also attest that the listed assessment and stated plan reflect my best clinical judgment today based on the combination of historical information, prior notes, and today's exam/ interactions. When time spent is documented, it refers only to time spent today by the signer, or if indicated, combined time spent today by collaborating physician/nurse practitioner.
--- NOTE | 2017-12-30 18:46 | P.PNWCN ---
Wound Care Nurse Consult Description: Consult for New Ostomy Teaching ileostomy per MINGO Wolff Communicated with: Palliative Care Physician Elisa ROWAN Additional information: Patient seen on for ostomy assessment of right side abdomen. Stoma is red, moist, and functioning with effluent that was not emptied by marine underwriter at that time. Intact ostomy appliance. Bowel Diversion Stoma - Bowel Stoma Right Lower Abdomen Stoma Appearance: Protruding, Round (red, moist, functioning) Collection Device: Two-piece Drainage Description: Liquid, Green Wafer Size: 2 1/4 Moldable
[2017-12-31] MEDS: Oral Hygiene Kit OROPHARYNG SCH ×4 (00:14→17:41)
[2017-12-31] MEDS: Dextrose 5%/Lactated Ringer's 1,000 ML IV.CONT SCH ×2 (04:42→21:04)
--- NOTE | 2017-12-31 05:20 | XR ---
EXAM DATE: 12/31/2017 4:54 AM EDT AGE/SEX: 87 years / Female INDICATIONS: Shortness of breath. CLINICAL DATA: This is the patient's subsequent encounter. Patient reports that signs and symptoms h ave been present for 1 week and indicates a pain score of Nonresponsive. MEDICAL/SURGICAL HISTORY: Hypertension. Gastroesophageal reflux disease. None. COMPARISON: C, CHEST 1V SINGLE AP, 12/24/2017. . FINDINGS: Endotracheal tube is present with tip 5 cm above the [place]. Left subclavian central line is present in good position. Nasogastric tube has been removed. There is persistent bilateral hazy lower parench ymal density which is essentially stable. Visualized cardiac contours are unchanged. CONCLUSION: No significant change Electronically signed by: Jhonatan Moreno MD 12/31/2017 5:19 AM EDT
[2017-12-31 05:42] LABS: Hematocrit 28.3 % (35.0-46.0); Hemoglobin 9.8 gm/dL (11.6-15.3); Mean Corpuscular HGB Conc 34.4 % (32.0-36.0); Mean Corpuscular Hemoglobin 31.5 pg (27.0-34.0); Mean Corpuscular Volume 91.4 fL (80.0-100.0); Mean Platelet Volume 10.1 fL (7.0-11.0); Platelet Count 105 th/mm3 (150-450); Red Cell Distribution Width 15.9 % (11.6-17.2); White Blood Count 7.2 th/mm3 (4.0-11.0)
[2017-12-31] MEDS: Propofol 1000 mg/100 ml Inj 1,000 MG/100 ML BOTTLE IV.CONT PRN (05:42)
[2017-12-31] MEDS: Piperacil/Tazo 4.5 GM Premix 4.5 GM/100 ML BAG IV.SIG SCH ×3 (05:42→17:41)
[2017-12-31 06:08] LABS: Calcium 7.1 mg/dL (8.5-10.1); Carbon Dioxide 23.5 meq/L (21.0-32.0); Magnesium 1.5 mg/dL (1.5-2.5); Phosphorus 2.8 mg/dL (2.5-4.9); Potassium 3.6 meq/L (3.5-5.1)
[2017-12-31] MEDS: Magnesium Sulfate Inj 2 GM in Sodium Chlor 0.9% Inj 96 ML IV.SIG PRN (08:05)
[2017-12-31] MEDS: Chlorhexidine 0.12% Oral Kit 15 ML UDC OROPHARYNG SCH (08:06)
--- NOTE | 2017-12-31 08:31 | P.PNCC ---
Subjective Subjective Remarks/Hospital Course: 87yF originally admitted for abdominal pain and now found to have perforated hollow viscus with intra-abdominal free air. taken to OR emergently by Dr. Aldrich for exploratory laparotomy where they found small bowel perforation. small bowel was resected and due to significantly poor patient tissue and gross contamination of the field, patient was left in discontinuity with an open abdomen. arrives to the ICU intubated, critically ill, on vasopressors, in shock. sedated. no additional information is available from the patient; ROS unobtainable. 12/25: She remains oliguric and septic. We are unable to separate her from mechanical ventilation and are still correcting her metabolic acidosis. Pre- albumin of 5 implicates poor preoperative nutrition. Description of bowel from surgery lens support for a severely debilitated state prior to surgery. She is presently hemodynamically unstable and oliguric. 12/26: Magnesium, phosphate, potassium all low; presently being replaced. Persistent septic pattern. Scheduled for second look operation later today, anticipate discouraging findings. Acid-base balance acceptable in gas exchange good. Update: Back from OR. Well perfused. Clear lungs. Base -6. Urine acceptable. 12/27: Back from surgery yesterday with end ileostomy fashioned. Abdomen remains open with VAC dressing in place. Acid-base balance modestly improved and acceptable. Urine output acceptable and renal function remains close to normal. She remains hemodynamically unstable and rate wiring levo fed at 9 mcg/ min; typical of the smoldering septic picture. 12/28: Renal function remains acceptable. Requiring ongoing vasopressor support with Levophed. Acid-base balance largely corrected. Ileostomy is well perfused and functioning. Plan is to attempt to close the abdomen tomorrow. Blood sugar has twice dropped into the 20s when glucose containing IV solutions have all been stopped. Plan to start tube feeds when OK with surgical service. Please keep glucose containing solution running during operative procedures 12/29: Patient seen after OR. Abdomen closed, new J-tube in place. Ileostomy pink. Still requiring high-dose Levophed currently at 10 mcg/min. No hypoglycemia reported. For OR report is pending. Developed paroxysmal A. fib postop. Replace potassium and magnesium, give metoprolol as needed IV 12/30: Remains intubated sedated. Patient had episode of hypotension overnight. Currently still on vasopressin 0.04 IU. Hemoglobin is 7.1 I have ordered stat 1 unit PRBC. Remains on amiodarone currently sinus rhythm. Opens eyes to stimulation moves extremities purposefully 12/31: Remains on the vent, blood pressure has improved off vasopressin now. Grossly fluid positive approximately 25 KG. Showing generalized anasarca. Give IV Lasix 60 mg 1 and then 40 every 12 hours scheduled. Blood sugar remains low (72 am) despite D5 LR and tube feeds Objective Vital Signs / I&O: Vital Signs 12/30/17 11:28 12/30/17 11:41 12/30/17 11:44 Temperature 98.2 F 98.2 F Pulse Rate 78 78 Respiratory Rate 15 15 15 Blood Pressure 132/53 L 132/51 L Pulse Oximetry 100 100 12/30/17 12:00 12/30/17 12:18 12/30/17 12:45 Temperature 98.2 F 98.2 F Pulse Rate 78 78 Respiratory Rate 15 15 15 Blood Pressure 136/56 L 146/60 H Pulse Oximetry 100 12/30/17 15:36 12/30/17 16:00 12/30/17 20:00 Temperature 98.6 F 99.1 F Pulse Rate 100 H 96 H Respiratory Rate 15 14 15 Blood Pressure 136/58 L 109/52 L Pulse Oximetry 100 100 12/30/17 21:05 12/31/17 00:00 12/31/17 01:05 Temperature 98.2 F Pulse Rate 96 H Respiratory Rate 15 15 15 Blood Pressure 113/47 L Pulse Oximetry 99 99 98 12/31/17 04:00 12/31/17 04:21 12/31/17 07:20 Temperature 97.5 F L Pulse Rate 99 H Respiratory Rate 15 15 Blood Pressure 128/55 L Pulse Oximetry 99 99 100 Intake & Output 12/30/17 12/31/17 12/31/17 18:59 06:59 18:59 Intake Total 2885 / 2885 1530 / 1530 Output Total 2270 / 2270 1550 / 1550 Balance 615 / 615 -20 / -20 Weight 84.1 kg Intake: IV 2475 / 2475 1400 / 1400 Cordarone Inj 450 MG In D5W Inj 175 / 175 241 ML @ 1 MG/MIN 33.33 mls/hr IV.CONT TITRATE PRN Rx#: [id number] D5W/LR Inj 1,000 ML @ 75 mls/hr 1000 / 1000 1000 / 1000 IV.CONT .[id number] [facility] Rx#: [id number] Diprivan 1000 mg/100 ml Inj 1, 100 / 100 100 / 100 000 mg In 100 ml @ 5 MCG/KG/MIN 2.049 mls/hr IV.CONT TITRATE PRN Rx#:[id number] Pitressin Inj 40 UNIT In NS Inj 100 / 100 98 ML @ 0.04 UNITS/MIN 6 mls/ hr IV.CONT CONT [facility] Rx#: [id number] Magnesium Sulfate Inj 2 GM In 100 / 100 NS Inj 96 ML @ 50 mls/hr IV.SIG ONCE ONE Rx#:[id number] Levophed-Dextrose 4 mg/250 ml 0 / 0 Drip 4 mg In 250 ml @ 2 MCG/MIN 7.5 mls/hr IV.SIG TITRATE PRN Rx#:[id number] Zosyn 4.5 GM Premix 4.5 gm In 100 / 100 300 / 300 100 ml @ 200 mls/hr IV.SIG Q6H [facility] Rx#:[id number] KCl 40 mEq Premix Inj 40 meq In 200 / 200 100 ml @ 25 mls/hr IV.SIG ONCE ONE Rx#:[id number] fentaNYL 10 mcg/mL Premix Drip 250 / 250 2,500 mcg In 250 ml @ 50 MCG/HR 5 mls/hr IV.SIG TITRATE PRN Rx #:[id number] Oral 10 / 10 Tube Feeding 130 / 130 Intake (Blood Product) Amt 400 / 400 Rbc As-3 Leukoreduced Unit 400 / 400 [id number] Output: Urine Amount (Catheter) 1800 / 1800 1200 / 1200 Indwelling Urethral Catheter 1800 / 1800 1200 / 1200 Stool Amount (Stoma) 450 / 450 350 / 350 Right Lower Abdomen 450 / 450 350 / 350 Gastric Drainage 20 / 20 Left Upper Quadrant Gastrostomy 20 / 20 Tube (PEG) Other: Date of Last Bowel Movement 12/18/17 Result Diagrams: 12/31/17 05:30 12/31/17 05:30 Objective Remarks: GENERAL: Frail, elderly female, intubated, sedated, critically ill, on mechanical ventilation SKIN: Well-perfused. HEENT: Oral tracheally intubated, ZACARIAS CARDIOVASCULAR: NSR regular rhythm. sinus. no JVD. Off vasopressin RESPIRATORY: Equal chest rise. no wheezes. decreased breath sounds in bases. good bilateral air entry. GASTROINTESTINAL: Abdomen closed today, midline incision dressing intact. Ostomy with liquid output. G-tube in place MUSCULOSKELETAL: No obvious deformities. No clubbing or cyanosis. Anasarca plus NEUROLOGICAL: Intubated, sedated. RASS -2. Withdraws to pain x 4. Opens eyes to stimulation, intermittently follows commands Procedures: Laparotomy and bowel resection 12/24 Laparotomy and ileostomy formation 12/26 Intubation and mechanical ventilation Assessment and Plan - Problem List (1) Respiratory failure requiring intubation Code(s): J96.90 - Respiratory failure, unspecified, unspecified whether with hypoxia or hypercapnia Status: Acute (2) Septic shock Code(s): A41.9 - Sepsis, unspecified organism; R65.21 - Severe sepsis with septic shock Status: Acute (3) Hypoglycemia Code(s): E16.2 - Hypoglycemia, unspecified Status: Acute (4) Non-STEMI (non-ST elevated myocardial infarction) Code(s): I21.4 - Non-ST elevation (NSTEMI) myocardial infarction Status: Acute (5) Free intraperitoneal air Code(s): K66.8 - Other specified disorders of peritoneum Status: Acute (6) Acute abdomen Code(s): R10.0 - Acute abdomen Status: Acute (7) Elevated lactic acid level Code(s): R79.89 - Other specified abnormal findings of blood chemistry Status : Acute (8) Ischemic bowel syndrome Code(s): K55.9 - Vascular disorder of intestine, unspecified Status: Acute - Assessment and Plan Plan: Assessment: 87yF with perforated small bowel now s/p emergent exploratory laparotomy, small bowel resection, left in discontinuity with open abdomen. iv antibiotics, vasopressors, iv fluid resuscitation. Critically ill. Went to OR today 12/29/2017 for abdomen closure. Plan by systems: Neurologic: Acute metabolic encephalopathy Propofol and fentanyl for goal RASS -2 Daily sedation location Respiratory: Acute hypoxic and hypercarbic respiratory failure Vent bundle, Head of bed elevated, Nebs Wean FiO2 for goal SPO2 greater than 90% Spontaneous breathing trials, as tolerated Diuresis as below Cardiovascular: Septic shock resolved Paroxysmal A. fib with RVR Fluid overload Off Vasopressin IV Lasix 60 mg x1 and 40 mg q12, weight up by 25 EKG Metoprolol 2.5 mg IV every 6 hours as needed for heart rate more than 120 Cannot anticoagulate for A. fib due to recent surgery, discontinued amiodarone IV digoxin 0.25 mg 1 given 12/29/2017 Keep magnesium more than 2.2, keep potassium more than 4 D5 LR at 125 ml per hour, reduce to 50 mL/h (this is to prevent hypoglycemia) Renal: Acute kidney injury Likely secondary to septic shock and volume depletion in the setting of small bowel perforation Continue Hankins, Frequent urine checks, Daily BMP Maintenance fluid resuscitation currently on D5/LR to prevent hypoglycemia - Strict I/Os Creatinine has normalized FEN/GI: Small bowel perforation Intra-abdominal sepsis Severe acute protein calorie malnutrition Hypocalcemia Hypomagnesemia s/p abdominal closure 12/30/17 Ileostomy pink, new G-tube in place. Started on trickle feeds with Jevity by general surgery Advance tube feeds as tolerated ICU electrolyte protocol Antibiotics as described below Dr. Aldrich following Heme/ID: Anemia secondary to acute blood loss Septic shock Intra-abdominal sepsis Status post 1 unit PRBCs in the OR. Additional 1 unit PRBC 12/30 Daily CBC Continue Zosyn IV Follow-up cultures-negative to date Endocrine: Hypoglycemia Hyperglycemia of critical illness Hypomagnesemia Hypokalemia -Continue D5 LR at 30 mL/h, check cortisol level -Aggressive electrolyte replacement -Prone to hypoglycemia if sugar not added to maintenance IV fluids. Prophylaxis: GI Prophylaxis PPI IV DVT Prophylaxis -SCDs Subcu heparin-hold immediate post op period due to anemia. Resume if ok with general surgery and Hb remains stable another 24 hr Lines: 12/24 radial arterial line 12/24 left subclavian triple-lumen catheter 12/24 Hankins Overall impression: This woman remains critically ill following damage control surgery for spontaneous perforation of the bowel and peritonitis. She returned to the OR on 12/26 for ileostomy construction, returned to OR again 12/29/2017 for abdominal wound closure and G tube placement. Septic shock is resolving but remains grossly fluid overloaded currently 25 EKG up. Start aggressive diuresis to work towards extubation Critical care time 35 minutes aside from invasive procedures. Code Status: ALT CODE
[2017-12-31] MEDS: Albumin Human 25% Inj 100 ML IV.SIG SCH ×2 (09:36→21:00)
[2017-12-31] MEDS: Potassium Chloride 25 MEQ Effervescent Tablet NG/OG SCH ×2 (10:14→21:00)
--- NOTE | 2017-12-31 13:06 | P.PNGS ---
Subjective Interval history: DAILY PROGRESS NOTE FOR SURGICAL ATTENDING, DR. ROYA ALDRICH Intubated/Sedated Discussed with HARPAL Pérez and HARPAL Ny Physical Exam Vital signs: Vital Signs 12/30/17 15:36 12/30/17 16:00 12/30/17 20:00 Temperature 98.6 F 99.1 F Pulse Rate 100 H 96 H Respiratory Rate 15 14 15 Blood Pressure 136/58 L 109/52 L Pulse Oximetry 100 100 12/30/17 21:05 12/31/17 00:00 12/31/17 01:05 Temperature 98.2 F Pulse Rate 96 H Respiratory Rate 15 15 15 Blood Pressure 113/47 L Pulse Oximetry 99 99 98 12/31/17 04:00 12/31/17 04:21 12/31/17 07:20 Temperature 97.5 F L Pulse Rate 99 H Respiratory Rate 15 15 Blood Pressure 128/55 L Pulse Oximetry 99 99 100 12/31/17 08:48 Temperature 96.8 F L Pulse Rate 95 H Respiratory Rate 15 Blood Pressure 110/53 L Pulse Oximetry Intake & Output 12/30/17 12/31/17 12/31/17 18:59 06:59 18:59 Intake Total 2885 / 2885 1530 / 1530 200 / 200 Output Total 2270 / 2270 1550 / 1550 Balance 615 / 615 -20 / -20 200 / 200 Weight 84.1 kg Intake: IV 2475 / 2475 1400 / 1400 200 / 200 Cordarone Inj 450 MG In D5W Inj 175 / 175 241 ML @ 1 MG/MIN 33.33 mls/hr IV.CONT TITRATE PRN Rx#: [id number] D5W/LR Inj 1,000 ML @ 75 mls/hr 1000 / 1000 1000 / 1000 IV.CONT .[id number] [facility] Rx#: [id number] Diprivan 1000 mg/100 ml Inj 1, 100 / 100 100 / 100 000 mg In 100 ml @ 5 MCG/KG/MIN 2.049 mls/hr IV.CONT TITRATE PRN Rx#:[id number] Pitressin Inj 40 UNIT In NS Inj 100 / 100 98 ML @ 0.04 UNITS/MIN 6 mls/ hr IV.CONT CONT [facility] Rx#: [id number] Flexbumin 25% Inj 100 ML @ 60 100 / 100 mls/hr IV.SIG Q12H [facility] Rx#: [id number] Magnesium Sulfate Inj 2 GM In 100 / 100 100 / 100 NS Inj 96 ML @ 50 mls/hr IV.SIG UNSCH PRN Rx#:[id number] Levophed-Dextrose 4 mg/250 ml 0 / 0 Drip 4 mg In 250 ml @ 2 MCG/MIN 7.5 mls/hr IV.SIG TITRATE PRN Rx#:[id number] Zosyn 4.5 GM Premix 4.5 gm In 100 / 100 300 / 300 100 ml @ 200 mls/hr IV.SIG Q6H [facility] Rx#:[id number] KCl 40 mEq Premix Inj 40 meq In 200 / 200 100 ml @ 25 mls/hr IV.SIG ONCE ONE Rx#:[id number] fentaNYL 10 mcg/mL Premix Drip 250 / 250 2,500 mcg In 250 ml @ 50 MCG/HR 5 mls/hr IV.SIG TITRATE PRN Rx #:[id number] Oral 10 / 10 Tube Feeding 130 / 130 Intake (Blood Product) Amt 400 / 400 Rbc As-3 Leukoreduced Unit 400 / 400 [id number] Output: Urine Amount (Catheter) 1800 / 1800 1200 / 1200 Indwelling Urethral Catheter 1800 / 1800 1200 / 1200 Stool Amount (Stoma) 450 / 450 350 / 350 Right Lower Abdomen 450 / 450 350 / 350 Gastric Drainage Left Upper Quadrant Gastrostomy Tube (PEG) Other: Date of Last Bowel Movement 12/18/17 Narrative: Eyes open when I call her name Cardiac---RRR Resp: CTAB Abd: midline incision with dressing--small amount of serous fluid; ileostomy in place with pink stoma---liquid stool in bag; G tube in place with TF Mild peripheral edema - Additional findings Additional findings: ITS Impressions Abdomen X-Ray 12/24/17 00:00 CONCLUSION: Dilated small bowel with collapse of the colon most characteristic of small bowel obstructive process. Calcific atherosclerotic vascular disease Abdomen/Pelvis CT 12/24/17 00:00 CONCLUSION: 1. Small to moderate amount of free air of concern for ruptured viscus. 2. Abnormal bowel gas pattern with dilated loops of small bowel and air-fluid levels most characteristic of a small bowel obstruction. 3. Moderate diverticulosis present. These findings were called to Dr. Aldrich at 1839 hours. Chest X-Ray 12/31/17 06:00 CONCLUSION: No significant change - Urinary Catheter Management Indwelling Urethral Catheter Cath placed during this visit: yes Reason for continuing: Acute urinary retention Insertion date: 12/24/17 Insertion time: 20:15 Assessment and Plan - Assessment (1) Acute abdomen Code(s): R10.0 - Acute abdomen Status: Acute (2) Free intraperitoneal air Code(s): K66.8 - Other specified disorders of peritoneum Status: Acute Plan: 87 year old female s/p lap converted to ex lap; resection of nonviable small bowel; ileostomy; POD2 ex lap; placement of G tube; closure of abdomen -[facility] following--- wean vent as tolerated -Advance TF as tolerated -Pressors now off -Palliative Care following -Discussed with RN Elisa and Yanely at bedside (3) Enteritis Code(s): K52.9 - Noninfective gastroenteritis and colitis, unspecified Status : Acute (4) History of esophageal reflux Code(s): Z87.19 - Personal history of other diseases of the digestive system Status: Chronic (5) Elevated lactic acid level Code(s): R79.89 - Other specified abnormal findings of blood chemistry Status : Acute (6) Dehydration Code(s): E86.0 - Dehydration Status: Acute (7) Sepsis Code(s): A41.9 - Sepsis, unspecified organism Status: Acute (8) Hypomagnesemia Code(s): E83.42 - Hypomagnesemia Status: Acute (9) Hypertension Code(s): I10 - Essential (primary) hypertension Status: Chronic - Attending Attestation NOTE FOR SURGICAL ATTENDING, DR. ROYA ALDRICH I agree with above assessment and plan. The exam, history, and the medical decision-making described in the above note were completed with the assistance of the mid-level provider. I reviewed and agree with the findings presented. I attest that I had a [id number] encounter with the patient on the same day, and personally performed and documented my assessment and findings in the medical record. The following services were provided during this hospital visit: Chart data review, vital sign assessments/reviewing monitor data Review of consultations notes if present. Medication orders/review and/or management Ordering and/or reviewing lab tests Ordering and/or interpreting/reviewing x-rays and/or diagnostic studies Care of the patient and discussion of the patient with the care team Documentation time To help prompt me to consider important information that might be impacting today's encounter and assessment, Information from prior notes written by myself or my colleagues may have been "brought forward/copy and pasted" into today's note. (7) Sepsis Qualifiers: Sepsis type: sepsis due to unspecified organism Qualified Code(s): A41.9 - Sepsis, unspecified organism (9) Hypertension Qualifiers: Hypertension type: essential hypertension Qualified Code(s): I10 - Essential (primary) hypertension
--- NOTE | 2017-12-31 13:28 | P.DIET ---
Nutritional Evaluation Type of nutrition evaluation: follow-up Nutrition consult regarding: Tube Feeding Nutrition screening: [facility] [place]TPN/PPN from 12/24) Objective - Diagnosis Generalized Weakness, Hypomagnesemia - Objective % IBW: 120 (IBW = 125#) Body Weight Used for Calculations: Actual (68.3 kg) Energy Needs - Lower Range (kCal/kg): 25 Energy Needs - Upper Range (kCal/kg): 30 Lower Limit kCal/kg (kCals): 1,708 Upper Limit kCal/kg (kCals): 2,049 Lower Limit Protein Factor (Grams per Kg): 1.0 Upper Limit Protein Factor (Grams per Kg): 1.5 Lower Protein Needs (Protein): 68 Upper Protein Needs (Protein): 102 Dietitian Reviewed in Medical Record: Current diet, Curent medications, Intake & Output, Labs, Medical history Objective Comments: 12/24 resection of small bowel with open packing 12/26 wound vac change, bowel resection, cecum resection, ileostomy, cholecystectomy 12/29 G-tube placement, closure of abdomen Assessment Assessment: Pt intubated and sedated and needs TFing to meet needs. Currently on trickle feeds of Jevity 1.5 @ 10 mls/hr. Pt is receiving some additional kcals from low rate propofol (1.1 kcal/ml). When TF can be increased, recommend goal of 50 mls /hr to provide 1800 kcals, 77 gms protein and 912 mls of free water. Weight changes noted: adm wt = 58 kg, CBW = 84.1 kg. Recommendations: When able: Jevity 1.5 @ 50 mls/hr goal Dietitian to Monitor: Lab values, Intake & Output, Tube feeding tolerance, Weight change, Medical course
[2017-12-31 15:13] LABS: Albumin 1.7 g/dL (3.4-5.0); Calcium 7.4 mg/dL (8.5-10.1); Carbon Dioxide 27.7 meq/L (21.0-32.0); Magnesium 2.1 mg/dL (1.5-2.5); Potassium 3.8 meq/L (3.5-5.1); Total Protein 4.5 g/dL (6.4-8.2)
--- NOTE | 2017-12-31 18:40 | P.PNWCN ---
Wound Care Nurse Consult Description: Consult for New Ostomy Teaching ileostomy per MINGO Wolff Communicated with: HARPAL Pérez Recommendation: Empty pouch of effluent when 1/3-1/2 full Change appliance every 3 days and PRN for leaks Additional information: Patient seen on . RN at bedside giving medication with family member at bedside. RN states the stoma is functioning. Stoma not assessed by publications writer at this time.
[2018-01-01] MEDS: Chlorhexidine 0.12% Oral Kit 15 ML UDC OROPHARYNG SCH ×3 (00:18→20:18)
[2018-01-01] MEDS: Oral Hygiene Kit OROPHARYNG SCH ×4 (00:20→16:51)
[2018-01-01] MEDS: Piperacil/Tazo 4.5 GM Premix 4.5 GM/100 ML BAG IV.SIG SCH ×4 (00:23→18:24)
--- NOTE | 2018-01-01 06:04 | XR ---
EXAM DATE: 01/01/2018 5:00 AM EDT AGE/SEX: 87 years / Female INDICATIONS: Shortness of breath CLINICAL DATA: This is the patient's initial encounter. Patient reports that signs and symptoms have been present for 1 week and indicates a pain score of Nonresponsive. MEDICAL/SURGICAL HISTORY: . Gastroesophageal reflux disease. Hypertension. None. COMPARISON: C, CHEST 1V SINGLE AP, 12/31/2017. . FINDINGS: Endotracheal tube is stable in good position. Left subclavian central catheter is stable. Hazy bibasi lar pleural-parenchymal opacities are unchanged. Cardiac contours are unchanged. CONCLUSION: No significant change Electronically signed by: Jhonatan Moreno MD 01/01/2018 6:03 AM EDT
[2018-01-01 07:06] LABS: Hematocrit 25.9 % (35.0-46.0); Hemoglobin 8.9 gm/dL (11.6-15.3); Mean Corpuscular HGB Conc 34.4 % (32.0-36.0); Mean Corpuscular Hemoglobin 31.6 pg (27.0-34.0); Mean Platelet Volume 10.8 fL (7.0-11.0); Platelet Count 110 th/mm3 (150-450); Red Blood Count 2.81 mil/mm3 (4.00-5.30); Red Cell Distribution Width 15.8 % (11.6-17.2); White Blood Count 5.9 th/mm3 (4.0-11.0)
[2018-01-01 07:19] LABS: Albumin 1.7 g/dL (3.4-5.0); Calcium 7.2 mg/dL (8.5-10.1); Carbon Dioxide 27.5 meq/L (21.0-32.0); Magnesium 1.8 mg/dL (1.5-2.5); Potassium 3.3 meq/L (3.5-5.1); Total Protein 4.5 g/dL (6.4-8.2)
--- NOTE | 2018-01-01 08:19 | P.PNGS ---
Subjective Interval history: Patient on CPAP Tolerating tube feeds Physical Exam Vital signs: Vital Signs 12/31/17 08:48 12/31/17 12:00 12/31/17 13:54 Temperature 96.8 F L 97.0 F L Pulse Rate 95 H 90 Respiratory Rate 15 15 14 Blood Pressure 110/53 L 116/50 L Pulse Oximetry 98 12/31/17 16:00 12/31/17 16:14 12/31/17 19:32 Temperature 98.2 F Pulse Rate 98 H Respiratory Rate 8 L 16 23 Blood Pressure 144/47 H Pulse Oximetry 99 99 12/31/17 20:00 12/31/17 23:35 01/01/18 00:00 Temperature 98.8 F 99.0 F Pulse Rate 118 H 108 H Respiratory Rate 16 15 16 Blood Pressure 128/60 129/54 L Pulse Oximetry 99 01/01/18 03:33 01/01/18 04:00 01/01/18 07:46 Temperature 99.0 F Pulse Rate 111 H Respiratory Rate 20 17 Blood Pressure 165/75 H Pulse Oximetry 100 98 Intake & Output 12/31/17 01/01/18 01/01/18 18:59 06:59 18:59 Intake Total 1310 / 1310 942 / 942 150 / 150 Output Total 3775 / 3775 3200 / 3200 Balance -2465 / -2465 -2258 / -2258 150 / 150 Weight 79.8 kg Intake: IV 1150 / 1150 450 / 450 150 / 150 D5W/LR Inj 1,000 ML @ 50 mls/hr 750 / 750 250 / 250 IV.CONT .Q20H [facility] Rx#:[id number] Diprivan 1000 mg/100 ml Inj 1, 35 / 35 000 mg In 100 ml @ 5 MCG/KG/MIN 2.049 mls/hr IV.CONT TITRATE PRN Rx#:[id number] Pitressin Inj 40 UNIT In NS Inj 15 / 15 98 ML @ 0.04 UNITS/MIN 6 mls/ hr IV.CONT CONT [facility] Rx#: [id number] Flexbumin 25% Inj 100 ML @ 60 100 / 100 100 / 100 mls/hr IV.SIG Q12H [facility] Rx#: [id number] Magnesium Sulfate Inj 2 GM In 100 / 100 NS Inj 96 ML @ 50 mls/hr IV.SIG UNSCH PRN Rx#:[id number] Zosyn 4.5 GM Premix 4.5 gm In 200 / 200 100 / 100 100 / 100 100 ml @ 200 mls/hr IV.SIG Q6H [facility] Rx#:[id number] Tube Feeding 160 / 160 492 / 492 Output: Stool 500 / 500 Emesis 0 / 0 Urine Amount (Catheter) 3275 / 3275 3000 / 3000 Indwelling Urethral Catheter 3275 / 3275 3000 / 3000 Stool Amount (Stoma) 200 / 200 Right Lower Abdomen 200 / 200 Narrative: Eyes open when I call her name Cardiac---RRR Resp: CTAB Abd: midline incision with dressing--small amount of serous fluid; ileostomy in place with pink stoma---liquid stool in bag; G tube in place with TF going at 30 cc an hour Mild peripheral edema - Urinary Catheter Management Indwelling Urethral Catheter Cath placed during this visit: yes Reason for continuing: Hourly intake/output Insertion date: 12/24/17 Insertion time: 20:15 Results - Labs 01/01/18 06:40 01/01/18 06:40 Laboratory Results - last 24 hr 12/31/17 12/31/17 12/31/17 08:25 10:22 14:10 WBC RBC Hgb Hct MCV MCH MCHC RDW Plt Count MPV Sodium 140 Potassium 3.8 Chloride 103 Carbon Dioxide 27.7 Anion Gap 9 BUN 7 Creatinine 0.89 Estimated GFR 72 L POC Glucose 78 85 Random Glucose 82 Calcium 7.4 L* Prot Corrected Calcium 8.9 Magnesium 2.1 D Total Bilirubin 0.9 AST 23 ALT 13 Alkaline Phosphatase 88 Total Protein 4.5 L Albumin 1.7 L 12/31/17 12/31/17 12/31/17 14:22 16:09 18:46 WBC RBC Hgb Hct MCV MCH MCHC RDW Plt Count MPV Sodium Potassium Chloride Carbon Dioxide Anion Gap BUN Creatinine Estimated GFR POC Glucose 85 80 89 Random Glucose Calcium Prot Corrected Calcium Magnesium Total Bilirubin AST ALT Alkaline Phosphatase Total Protein Albumin 01/01/18 01/01/18 01/01/18 01:00 04:16 06:40 WBC 5.9 RBC 2.81 L Hgb 8.9 L Hct 25.9 L MCV 92.0 MCH 31.6 MCHC 34.4 RDW 15.8 Plt Count 110 L MPV 10.8 Sodium Potassium Chloride Carbon Dioxide Anion Gap BUN Creatinine Estimated GFR POC Glucose 84 97 Random Glucose Calcium Prot Corrected Calcium Magnesium Total Bilirubin AST ALT Alkaline Phosphatase Total Protein Albumin 01/01/18 06:40 WBC RBC Hgb Hct MCV MCH MCHC RDW Plt Count MPV Sodium 140 Potassium 3.3 L Chloride 103 Carbon Dioxide 27.5 Anion Gap 10 BUN 7 Creatinine 1.04 H Estimated GFR 60 L POC Glucose Random Glucose 108 H Calcium 7.2 L* Prot Corrected Calcium 8.7 Magnesium 1.8 Total Bilirubin 0.9 AST 22 ALT 13 Alkaline Phosphatase 84 Total Protein 4.5 L Albumin 1.7 L - Imaging Imaging: ITS Impressions Abdomen X-Ray 12/24/17 00:00 CONCLUSION: Dilated small bowel with collapse of the colon most characteristic of small bowel obstructive process. Calcific atherosclerotic vascular disease Abdomen/Pelvis CT 12/24/17 00:00 CONCLUSION: 1. Small to moderate amount of free air of concern for ruptured viscus. 2. Abnormal bowel gas pattern with dilated loops of small bowel and air-fluid levels most characteristic of a small bowel obstruction. 3. Moderate diverticulosis present. These findings were called to Dr. Nava at 1839 hours. Chest X-Ray 01/01/18 06:00 CONCLUSION: No significant change Additional studies: Pathology report Final Diagnosis #1- SEGMENT OF TERMINAL ILEUM AND CECAL COLON (STATUS POST APPENDECTOMY) WITH MILD ACUTE NON-SPECIFIC SUPPURATIVE ILEOCOLITIS. SEPARATE SEGMENT OF SMALL INTESTINE (ILEOJEJUNAL) WITH ACUTE SUPPURATIVE AND ORGANIZING SEROSITIS (PERITONITIS). #2- SEGMENT OF COLON WITH ANASTOMOTIC ILEAL SEGMENT WITH SEVERE ACUTE SUPPURATIVE SEROSITIS (PERITONITIS) AND SESSILE COLONIC ADENOMATOUS POLYP. #3- GALLBLADDER WITH CHRONIC CHOLECYSTITIS AND CHOLELITHIASIS EXHIBITING CALCULI WITHIN THE SEGMENT OF CYSTIC DUCT. Assessment and Plan - Assessment (1) Gastrostomy in place Code(s): Z93.1 - Gastrostomy status Status: Acute (2) Ileostomy in place Code(s): Z93.2 - Ileostomy status Status: Acute (3) Sepsis Code(s): A41.9 - Sepsis, unspecified organism Status: Acute (4) History of esophageal reflux Code(s): Z87.19 - Personal history of other diseases of the digestive system Status: Chronic - Plan 87 year old female s/p ex lap; resection of nonviable small bowel; ileostomy; ex lap; placement of G tube; closure of abdomen -CCM following--- wean vent as tolerated -Advance TF as tolerated at 30 cc -Pressors now off -Palliative Care following -Today I discussed with Dr. Jhonatan Ortiz to hopefully extubate today - Attending Attestation NOTE FOR SURGICAL ATTENDING, DR. ROYA NAVA I attest that I had a [id number] encounter with the patient on the same day, and personally performed and documented my assessment and findings in the medical record. The following services were provided during this hospital visit: Chart data review, vital sign assessments/reviewing monitor data Review of consultations notes if present. Medication orders/review and/or management Ordering and/or reviewing lab tests Ordering and/or interpreting/reviewing x-rays and/or diagnostic studies Care of the patient and discussion of the patient with the care team Documentation time To help prompt me to consider important information that might be impacting today's encounter and assessment, Information from prior notes written by myself or my colleagues may have been "brought forward/copy and pasted" into today's note. (3) Sepsis Qualifiers: Sepsis type: sepsis due to unspecified organism Qualified Code(s): A41.9 - Sepsis, unspecified organism
[2018-01-01] MEDS: Albumin Human 25% Inj 100 ML IV.SIG SCH ×2 (08:57→20:18)
[2018-01-01] MEDS: Potassium Chloride 25 MEQ Effervescent Tablet NG/OG SCH ×2 (08:58→20:18)
--- NOTE | 2018-01-01 09:11 | P.PNCC ---
Subjective Subjective Remarks/Hospital Course: 87yF originally admitted for abdominal pain and now found to have perforated hollow viscus with intra-abdominal free air. taken to OR emergently by Dr. Aldrich for exploratory laparotomy where they found small bowel perforation. small bowel was resected and due to significantly poor patient tissue and gross contamination of the field, patient was left in discontinuity with an open abdomen. arrives to the ICU intubated, critically ill, on vasopressors, in shock. sedated. no additional information is available from the patient; ROS unobtainable. 12/25: She remains oliguric and septic. We are unable to separate her from mechanical ventilation and are still correcting her metabolic acidosis. Pre- albumin of 5 implicates poor preoperative nutrition. Description of bowel from surgery lens support for a severely debilitated state prior to surgery. She is presently hemodynamically unstable and oliguric. 12/26: Magnesium, phosphate, potassium all low; presently being replaced. Persistent septic pattern. Scheduled for second look operation later today, anticipate discouraging findings. Acid-base balance acceptable in gas exchange good. Update: Back from OR. Well perfused. Clear lungs. Base -6. Urine acceptable. 12/27: Back from surgery yesterday with end ileostomy fashioned. Abdomen remains open with VAC dressing in place. Acid-base balance modestly improved and acceptable. Urine output acceptable and renal function remains close to normal. She remains hemodynamically unstable and rate wiring levo fed at 9 mcg/ min; typical of the smoldering septic picture. 12/28: Renal function remains acceptable. Requiring ongoing vasopressor support with Levophed. Acid-base balance largely corrected. Ileostomy is well perfused and functioning. Plan is to attempt to close the abdomen tomorrow. Blood sugar has twice dropped into the 20s when glucose containing IV solutions have all been stopped. Plan to start tube feeds when OK with surgical service. Please keep glucose containing solution running during operative procedures 12/29: Patient seen after OR. Abdomen closed, new J-tube in place. Ileostomy pink. Still requiring high-dose Levophed currently at 10 mcg/min. No hypoglycemia reported. For OR report is pending. Developed paroxysmal A. fib postop. Replace potassium and magnesium, give metoprolol as needed IV 12/30: Remains intubated sedated. Patient had episode of hypotension overnight. Currently still on vasopressin 0.04 IU. Hemoglobin is 7.1 I have ordered stat 1 unit PRBC. Remains on amiodarone currently sinus rhythm. Opens eyes to stimulation moves extremities purposefully 12/31: Remains on the vent, blood pressure has improved off vasopressin now. Grossly fluid positive approximately 25 KG. Showing generalized anasarca. Give IV Lasix 60 mg 1 and then 40 every 12 hours scheduled. Blood sugar remains low (72 am) despite D5 LR and tube feeds 01/01: Remains intubated currently off propofol only on fentanyl. Wakes up follows commands but remains weak lethargic. Urine output excellent with aggressive diuresis 6.2 L in 24 hours. D/W Dr. Aldrich Objective Vital Signs / I&O: Vital Signs 12/31/17 12:00 12/31/17 13:54 12/31/17 16:00 Temperature 97.0 F L 98.2 F Pulse Rate 90 98 H Respiratory Rate 15 14 8 L Blood Pressure 116/50 L 144/47 H Pulse Oximetry 98 12/31/17 16:14 12/31/17 19:32 12/31/17 20:00 Temperature 98.8 F Pulse Rate 118 H Respiratory Rate 16 23 16 Blood Pressure 128/60 Pulse Oximetry 99 99 12/31/17 23:35 01/01/18 00:00 01/01/18 03:33 Temperature 99.0 F Pulse Rate 108 H Respiratory Rate 15 16 20 Blood Pressure 129/54 L Pulse Oximetry 99 100 01/01/18 04:00 01/01/18 07:46 Temperature 99.0 F Pulse Rate 111 H Respiratory Rate 17 Blood Pressure 165/75 H Pulse Oximetry 98 Intake & Output 12/31/17 01/01/18 01/01/18 18:59 06:59 18:59 Intake Total 1310 / 1310 942 / 942 150 / 150 Output Total 3775 / 3775 3200 / 3200 Balance -2465 / -2465 -2258 / -2258 150 / 150 Weight 79.8 kg Intake: IV 1150 / 1150 450 / 450 150 / 150 D5W/LR Inj 1,000 ML @ 50 mls/hr 750 / 750 250 / 250 IV.CONT .Q20H [facility] Rx#:[id number] Diprivan 1000 mg/100 ml Inj 1, 35 / 35 000 mg In 100 ml @ 5 MCG/KG/MIN 2.049 mls/hr IV.CONT TITRATE PRN Rx#:[id number] Pitressin Inj 40 UNIT In NS Inj 15 / 15 98 ML @ 0.04 UNITS/MIN 6 mls/ hr IV.CONT CONT [facility] Rx#: [id number] Flexbumin 25% Inj 100 ML @ 60 100 / 100 100 / 100 mls/hr IV.SIG Q12H [facility] Rx#: [id number] Magnesium Sulfate Inj 2 GM In 100 / 100 NS Inj 96 ML @ 50 mls/hr IV.SIG UNSCH PRN Rx#:[id number] Zosyn 4.5 GM Premix 4.5 gm In 200 / 200 100 / 100 100 / 100 100 ml @ 200 mls/hr IV.SIG Q6H [facility] Rx#:[id number] Tube Feeding 160 / 160 492 / 492 Output: Stool 500 / 500 Emesis 0 / 0 Urine Amount (Catheter) 3275 / 3275 3000 / 3000 Indwelling Urethral Catheter 3275 / 3275 3000 / 3000 Stool Amount (Stoma) 200 / 200 Right Lower Abdomen 200 / 200 Result Diagrams: 01/01/18 06:40 01/01/18 06:40 Objective Remarks: GENERAL: Frail, elderly female, intubated, sedated, critically ill, on mechanical ventilation SKIN: Well-perfused, but frail skin HEENT: Orally intubated, ZACARIAS CARDIOVASCULAR: NSR regular rhythm. sinus tachycardia intermittently. no JVD. Generalized edema improving RESPIRATORY: Equal chest rise. no wheezes. decreased breath sounds in bases. good bilateral air entry. GASTROINTESTINAL: Abdomen closed today, midline incision dressing intact. Ostomy with liquid output. G-tube in place MUSCULOSKELETAL: No obvious deformities. No clubbing or cyanosis. Anasarca plus NEUROLOGICAL: Intubated, sedated. RASS -2. Withdraws to pain x 4. Opens eyes to stimulation, intermittently follows commands Procedures: Laparotomy and bowel resection 12/24 Laparotomy and ileostomy formation 12/26 Intubation and mechanical ventilation Assessment and Plan - Problem List (1) Respiratory failure requiring intubation Code(s): J96.90 - Respiratory failure, unspecified, unspecified whether with hypoxia or hypercapnia Status: Acute (2) Septic shock Code(s): A41.9 - Sepsis, unspecified organism; R65.21 - Severe sepsis with septic shock Status: Acute (3) Hypoglycemia Code(s): E16.2 - Hypoglycemia, unspecified Status: Acute (4) Non-STEMI (non-ST elevated myocardial infarction) Code(s): I21.4 - Non-ST elevation (NSTEMI) myocardial infarction Status: Acute (5) Free intraperitoneal air Code(s): K66.8 - Other specified disorders of peritoneum Status: Acute (6) Acute abdomen Code(s): R10.0 - Acute abdomen Status: Acute (7) Elevated lactic acid level Code(s): R79.89 - Other specified abnormal findings of blood chemistry Status : Acute (8) Ischemic bowel syndrome Code(s): K55.9 - Vascular disorder of intestine, unspecified Status: Acute - Assessment and Plan Plan: Assessment: 87yF with perforated small bowel now s/p emergent exploratory laparotomy, small bowel resection, left in discontinuity with open abdomen. iv antibiotics, vasopressors, iv fluid resuscitation. Critically ill. Went to OR today 12/29/2017 for abdomen closure. Plan by systems: Neurologic: Acute metabolic encephalopathy Propofol and fentanyl for goal RASS -2 Daily sedation location Respiratory: Acute hypoxic and hypercarbic respiratory failure Vent bundle, Head of bed elevated, Nebs Wean FiO2 for goal SPO2 greater than 90% Spontaneous breathing trials, with parameters Diuresis as below Cardiovascular: Septic shock resolved Paroxysmal A. fib with RVR Fluid overload IV Lasix 40 mg q12, weight up by 25 EKG. reduce Lasix to 20 mg every 12 due to increasing creatinine to 1.04 Metoprolol 2.5 mg IV every 6 hours as needed for heart rate more than 120 Cannot anticoagulate for A. fib due to recent surgery, discontinued amiodarone IV digoxin 0.25 mg 1 given 12/29/2017 Keep magnesium more than 2.2, keep potassium more than 4 D5 LR at 50 mL/h (this is to prevent hypoglycemia) Renal: Acute kidney injury Likely secondary to septic shock and volume depletion in the setting of small bowel perforation Continue Hankins, Frequent urine checks, Daily BMP Maintenance fluid resuscitation currently on D5/LR to prevent hypoglycemia. IV Lasix as above - Strict I/Os Creatinine has increased slightly continue to monitor FEN/GI: Small bowel perforation Intra-abdominal sepsis Severe acute protein calorie malnutrition Hypocalcemia Hypomagnesemia s/p abdominal closure 12/30/17 Ileostomy pink, new G-tube in place. Trickle feeds with Jevity by general surgery Advance tube feeds as tolerated ICU electrolyte protocol Antibiotics as described below Dr. Aldrich following Heme/ID: Anemia secondary to acute blood loss Septic shock-resolving Intra-abdominal sepsis Status post 1 unit PRBCs in the OR. Additional 1 unit PRBC 12/30 Daily CBC Continue Zosyn IV Follow-up cultures-negative to date Endocrine: Hypoglycemia Hyperglycemia of critical illness Hypomagnesemia Hypokalemia -Continue D5 LR at 50 mL/h, check cortisol level -Aggressive electrolyte replacement -Prone to hypoglycemia if sugar not added to maintenance IV fluids. Prophylaxis: GI Prophylaxis PPI IV DVT Prophylaxis -SCDs Subcu heparin-hold immediate post op period due to anemia. Resume today 01/01 with Lovenox 40 mg subcu daily Lines: 12/24 radial arterial line 12/24 left subclavian triple-lumen catheter 12/24 Hankins Overall impression: This woman remains critically ill following damage control surgery for spontaneous perforation of the bowel and peritonitis. She returned to the OR on 12/26 for ileostomy construction, returned to OR again 12/29/2017 for abdominal wound closure and G tube placement. Septic shock is resolving but remains grossly fluid overloaded currently 25 EKG up. Continue aggressive diuresis to work towards extubation Level 3 Code Status: ALT CODE
[2018-01-01] MEDS: Metoprolol Inj 5 MG/5 ML Vial IV.PUSH PRN (10:06)
--- NOTE | 2018-01-01 13:28 | P.PNPAL ---
Reason for Visit Reason for visit: a. To assist with evaluation and management of symptoms including: pain; dyspnea; encephalopathy b. To assist medical decision maker(s) with: better understanding of current medical conditions; weighing benefits/burdens of medical treatment options; making medical treatment decisions. Subjective Subjective/Interval History: Follow-up medically necessary for symptom management and clarification of goals of medical treatment. Patient remains on ISC. Patient was medically extubated today to 4 L nasal cannula at 0930 hrs. O2 saturation currently 100%. No signs of respiratory distress noted. Patient currently minimally verbal due to oropharyngeal discomfort. Lethargic and oriented to self, place and partially to situation. Following simple commands. Patient is off pressors since yesterday and of fentanyl infusion. Patient denies pain. Patient is slightly hypotensive with systolic blood pressure in the 160s. Patient's son Don currently at bedside visiting with patient. Laboratory workup today revealing WBC 5.9, hemoglobin 8.9, hematocrit 25.9, platelet count 110, potassium 3.3, BUN/creatinine 7/1.04, PCC 8.7, total protein 4.5, albumin 1.7. Chest x-ray today pre-extubation unchanged, showing hazy bibasilar pleural-parenchymal opacities. Tube feeding via gastrostomy tube increased to 30 mL's an hour, currently tolerating. Readdressed code status with patient's son Don status post patient`s medical extubation. He would want code status to remain as alternative code. If patient would be in respiratory distress he would like patient to be reintubated again and reiterates that he does not want chest compressions and shock. Goals remain aggressive at this time. Case discussed with bedside RN. Family/Friend Interactions: Discussion with patient`s son Don. See interval note. . Advance Directives Living Will: Never completed Health Care Surrogate: Never completed Durable Power of Medical Administrative Technician: Never completed Documented care wishes:: No written documentation of health care goals/preferences . Objective Vital Signs: Vital Signs 12/31/17 13:54 12/31/17 16:00 12/31/17 16:14 Temperature 98.2 F Pulse Rate 98 H Respiratory Rate 14 8 L 16 Blood Pressure 144/47 H Pulse Oximetry 98 99 12/31/17 19:32 12/31/17 20:00 12/31/17 23:35 Temperature 98.8 F Pulse Rate 118 H Respiratory Rate 23 16 15 Blood Pressure 128/60 Pulse Oximetry 99 99 01/01/18 00:00 01/01/18 03:33 01/01/18 04:00 Temperature 99.0 F 99.0 F Pulse Rate 108 H 111 H Respiratory Rate 16 20 17 Blood Pressure 129/54 L 165/75 H Pulse Oximetry 100 01/01/18 07:46 01/01/18 08:00 01/01/18 11:29 Temperature 99.0 F Pulse Rate 112 H 114 H Respiratory Rate 21 22 Blood Pressure 157/71 H Pulse Oximetry 98 Intake & Output 12/31/17 01/01/18 01/01/18 18:59 06:59 18:59 Intake Total 1310 / 1310 942 / 942 350 / 350 Output Total 3775 / 3775 3200 / 3200 Balance -2465 / -2465 -2258 / -2258 350 / 350 Weight 79.8 kg Intake: IV 1150 / 1150 450 / 450 350 / 350 D5W/LR Inj 1,000 ML @ 50 mls/hr 750 / 750 250 / 250 IV.CONT .Q20H JUANITA Rx#:[id number] Diprivan 1000 mg/100 ml Inj 1, 35 / 35 000 mg In 100 ml @ 5 MCG/KG/MIN 2.049 mls/hr IV.CONT TITRATE PRN Rx#:[id number] Pitressin Inj 40 UNIT In NS Inj 15 / 15 98 ML @ 0.04 UNITS/MIN 6 mls/ hr IV.CONT CONT JUANITA Rx#: [id number] Flexbumin 25% Inj 100 ML @ 60 100 / 100 100 / 100 100 / 100 mls/hr IV.SIG Q12H JUANITA Rx#: [id number] Magnesium Sulfate Inj 2 GM In 100 / 100 NS Inj 96 ML @ 50 mls/hr IV.SIG UNSCH PRN Rx#:[id number] Zosyn 4.5 GM Premix 4.5 gm In 200 / 200 100 / 100 200 / 200 100 ml @ 200 mls/hr IV.SIG Q6H JUANITA Rx#:[id number] Tube Feeding 160 / 160 492 / 492 Output: Stool 500 / 500 Emesis 0 / 0 Urine Amount (Catheter) 3275 / 3275 3000 / 3000 Indwelling Urethral Catheter 3275 / 3275 3000 / 3000 Stool Amount (Stoma) 200 / 200 Right Lower Abdomen 200 / 200 Physical Exam: CONSTITUTIONAL/GENERAL: This is an adequately nourished patient, in no acute distress. TUBES/LINES/DRAINS: right radial arterial line; left subclavian central line; castillo catheter; Gastrostomy tube, SCDs. SKIN: No jaundice or lesions. abdominal surgical wound covered with a primapore dressing. Skin temperature appropriate. Not diaphoretic. HEAD: Atraumatic. Normocephalic. EYES: PERRLA. No scleral icterus. No injection or drainage. Fundi not examined. ENT: Hearing normal. Nose without bleeding or purulent drainage. Moist oral mucosa. NECK: Trachea midline. CARDIOVASCULAR: Regular rate and rhythm without murmurs, gallops, or rubs. No JVD. Peripheral pulses symmetric. RESPIRATORY/CHEST: Symmetric, unlabored respirations. Clear to auscultation. Diminished breath sounds in the bases. No wheezes, rales, or rhonchi. GASTROINTESTINAL: Midline abdominal wound with dressing intact-has an abdominal binder. Gastrostomy with TF infusing @ 30ml/hr. Intermittent bowel sounds GENITOURINARY: Without palpable bladder distension. Castillo catheter in place. MUSCULOSKELETAL: Extremities without clubbing, cyanosis. Edema improving. SCDs in place. No mottling. NEUROLOGICAL: Lethargic and oriented to self, place and partially situation. Following simple commands with all 4 extremities. Weak. PSYCHIATRIC: No anxiety or obvious signs of depression. Calm. . Diagnostic Tests Laboratory: Laboratory Results - last 72 hr 12/24/17 12/29/17 12/29/17 20:13 05:05 17:20 WBC 8.8 RBC 2.73 L Hgb 8.9 L Hct 26.3 L MCV 96.4 MCH 32.7 MCHC 33.9 RDW 15.6 Plt Count 106 L MPV 10.6 Sodium Potassium Chloride Carbon Dioxide Anion Gap BUN Creatinine Estimated GFR POC Glucose Random Glucose Calcium Prot Corrected Calcium Phosphorus Magnesium Total Bilirubin AST ALT Alkaline Phosphatase Total Protein Albumin HAILEY Screen Neg MTS Gel Crossmatch See Detail 12/29/17 12/30/17 12/30/17 17:20 05:55 05:55 WBC 7.1 RBC 2.28 L Hgb 7.1 L Hct 21.3 L MCV 93.4 MCH 31.4 MCHC 33.6 RDW 15.2 Plt Count 76 L MPV 10.4 Sodium 139 139 Potassium 3.8 3.4 L Chloride 107 106 Carbon Dioxide 24.7 22.9 Anion Gap 7 10 BUN 6 L 5 L Creatinine 0.72 0.72 Estimated GFR Greater than 89 Greater than 89 POC Glucose Random Glucose 119 H 109 H Calcium 6.8 L* 6.6 L* Prot Corrected Calcium 8.6 8.8 Phosphorus 2.7 Magnesium 2.0 D 1.7 Total Bilirubin 0.6 AST 25 ALT 14 Alkaline Phosphatase 58 Total Protein 3.8 L 3.2 L D Albumin 1.2 L HAILEY Screen MTS Gel Crossmatch 12/30/17 12/30/17 12/31/17 08:13 21:55 05:30 WBC RBC Hgb Hct MCV MCH MCHC RDW Plt Count MPV Sodium 137 Potassium 3.7 3.6 Chloride 105 Carbon Dioxide 23.5 Anion Gap 9 BUN 6 L Creatinine 0.77 Estimated GFR 85 L POC Glucose Random Glucose 72 L Calcium 7.1 L* Prot Corrected Calcium 8.9 Phosphorus 2.8 Magnesium 1.5 Total Bilirubin AST ALT Alkaline Phosphatase Total Protein 4.0 L D Albumin HAILEY Screen MTS Gel Crossmatch See Detail 12/31/17 12/31/17 12/31/17 05:30 08:25 10:22 WBC 7.2 RBC 3.10 L Hgb 9.8 L D Hct 28.3 L MCV 91.4 MCH 31.5 MCHC 34.4 RDW 15.9 Plt Count 105 L D MPV 10.1 Sodium Potassium Chloride Carbon Dioxide Anion Gap BUN Creatinine Estimated GFR POC Glucose 78 85 Random Glucose Calcium Prot Corrected Calcium Phosphorus Magnesium Total Bilirubin AST ALT Alkaline Phosphatase Total Protein Albumin HAILEY Screen MTS Gel Crossmatch 12/31/17 12/31/17 12/31/17 14:10 14:22 16:09 WBC RBC Hgb Hct MCV MCH MCHC RDW Plt Count MPV Sodium 140 Potassium 3.8 Chloride 103 Carbon Dioxide 27.7 Anion Gap 9 BUN 7 Creatinine 0.89 Estimated GFR 72 L POC Glucose 85 80 Random Glucose 82 Calcium 7.4 L* Prot Corrected Calcium 8.9 Phosphorus Magnesium 2.1 D Total Bilirubin 0.9 AST 23 ALT 13 Alkaline Phosphatase 88 Total Protein 4.5 L Albumin 1.7 L HAILEY Screen MTS Gel Crossmatch 12/31/17 01/01/18 01/01/18 18:46 01:00 04:16 WBC RBC Hgb Hct MCV MCH MCHC RDW Plt Count MPV Sodium Potassium Chloride Carbon Dioxide Anion Gap BUN Creatinine Estimated GFR POC Glucose 89 84 97 Random Glucose Calcium Prot Corrected Calcium Phosphorus Magnesium Total Bilirubin AST ALT Alkaline Phosphatase Total Protein Albumin HAILEY Screen MTS Gel Crossmatch 01/01/18 01/01/18 06:40 06:40 WBC 5.9 RBC 2.81 L Hgb 8.9 L Hct 25.9 L MCV 92.0 MCH 31.6 MCHC 34.4 RDW 15.8 Plt Count 110 L MPV 10.8 Sodium 140 Potassium 3.3 L Chloride 103 Carbon Dioxide 27.5 Anion Gap 10 BUN 7 Creatinine 1.04 H Estimated GFR 60 L POC Glucose Random Glucose 108 H Calcium 7.2 L* Prot Corrected Calcium 8.7 Phosphorus Magnesium 1.8 Total Bilirubin 0.9 AST 22 ALT 13 Alkaline Phosphatase 84 Total Protein 4.5 L Albumin 1.7 L HAILEY Screen MTS Gel Crossmatch Result Diagrams: 01/01/18 06:40 01/01/18 06:40 Microbiology: Microbiology 12/25/17 02:59 Aerobic Blood Culture - Final Blood - Peripheral No growth in 5 days Anaerobic Blood Culture - Final No growth in 5 days 12/25/17 00:50 Aerobic Blood Culture - Final Blood - Peripheral No growth in 5 days Anaerobic Blood Culture - Final No growth in 5 days Imaging: Abdomen X-Ray 12/24/17 00:00 CONCLUSION: Dilated small bowel with collapse of the colon most characteristic of small bowel obstructive process. Calcific atherosclerotic vascular disease Abdomen/Pelvis CT 12/24/17 00:00 CONCLUSION: 1. Small to moderate amount of free air of concern for ruptured viscus. 2. Abnormal bowel gas pattern with dilated loops of small bowel and air-fluid levels most characteristic of a small bowel obstruction. 3. Moderate diverticulosis present. These findings were called to Dr. Aldrich at 1839 hours. Chest X-Ray 01/01/18 06:00 CONCLUSION: No significant change Procedures: Intubation/mechanical ventilation Left subclavian central line placement Right radial arterial line placement Exploratory lap --> resection of terminal ileum/appendectomy 12/26/17: Patient underwent removal of temporary abdominal closure device, abdominal exploration, small bowel resection, resection of cecum and terminal ileum, primary anastomosis of ileum to ascending colon, which the tissue was compromised and the anastomosis failed, resection of anastomosis, placement of ileostomy, cholecystectomy and placement of temporary abdominal closure device. 01/01/2018: Medically extubated . Assessment and Plan - Disease Oriented Problem List (1) Ischemic bowel syndrome (2) Septic shock (3) Sepsis (4) Anemia (5) Hypoalbuminemia - Symptom Scale (1) Pain 0-10 Scale: 1 (Currently denies pain. At risk for pain-status post abdominal surgery) (2) Dyspnea 0-10 Scale: Unable to quantify (Medically extubated today 01/01 to O2 4 L nasal cannula) (3) Encephalopathy Comment: Improving. Medically extubated 01/01/18. Lethargic and oriented to self, place and partially situation. Pertinent Non-Medical Issues: Psychosocial: Originally from [place]. Moved to [facility] around 1991. High school graduate. 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 Two sons -- Lynda -- live locally and check in on her frequently. Spiritual: [employer] and spirituality have not played a large role in her life. She does not belong to any local max group. She does pray, however. Legal: No known advanced directive. Without a designated healthcare surrogate, her sons would be the joint proxy healthcare decision makers. Ethical issues impacting care: Patient is incapacitated to make her own healthcare decisions. It is currently unknown if she will regain capacity to do so. Important Contacts: Don Johnson (son and co-proxy) [phone] Yves Johnson (son and co-proxy) [phone] . Prognosis: Ms. Johnson is critically ill. She was in remarkably good shape for her age until about 2-3 weeks ago when her GI problems began, but she has gone into major surgery undernourished and post-operatively she is now hypotensive, bradycardic , and hypothermic. She is scheduled for additional surgery on 12/26/17. In spite of her relatively high level of functioning just weeks ago, she remains an grave risk of not surviving the hospitalization. Should she survive, the odds are that she would not get home again and would be either in a nursing facility or the hospital until her . At such time that patient or family feels that comfort measures only would be most in line with her goals, she would be eligible for hospice services. . Code Status: Alternative Code (No chest compressions, No shock) Plan: == Code Status: Alternative Code- No chest compressions, No shock. == Goals of medical treatment: Readdressed code status 01/01/18 with patient's son Don status post patient`s medical extubation. He would want code status to remain as alternative code. If patient would be in respiratory distress he would like patient to be reintubated again and reiterates that he does not want chest compressions and shock. Goals remain aggressive at this time. == Medical Decision making: There is no known written designation of healthcare surrogate. Patient medically extubated today 01/01. Patient is oriented to self, place and partially situation. Per [place] statutes hierarchy , proxy medical decision making would fall jointly to her two sons--Don and Yves. == Symptoms * Pain: There were no known prehospitalization pain syndromes. Current sources of pain include her recent abdominal surgery; orotracheal and nasogastric intubations; vascular access lines; prolonged bedbound status; Castillo catheter. prn Morphine sulfate available. Pain most likely adequately addressed. Patient denying pain. No further recommendations at this time. * Dyspnea: No known underlying lung disease. Current respiratory issues probably secondary to shock. Patient medically extubated today to O2 4L NC. Currently O2 saturation 100% with no signs of respiratory distress. Patient on Furosemide. Continue to monitor for respiratory distress. * Encephalopathy: No known underlying dementia. Encephalopathy is probably multifactorial with sepsis playing a large role. Patient medically extubated today. Minimally verbal. She is oriented to self, place and partially situation. Following simple commands. == At anytime goals of care should transition to "comfort measures only," patient would be eligible for hospice services. == Palliative care will continue to follow to assist with symptom management and to further clarify goals of medical treatment as the clinical course evolves. . Attestation Attestation: To help prompt me to consider important information that might be impacting today's encounter and assessment, information from prior notes written by myself or my colleagues may have been "brought forward" into today's note. My signature on this note, however, is an attestation that I personally performed the exam, history, and/or decision-making noted today, and, unless otherwise indicated, the interactions with patient, family, and staff as well as the review of records all occurred today. I also attest that the listed assessment and stated plan reflect my best clinical judgment today based on the combination of historical information, prior notes, and today's exam/ interactions. When time spent is documented, it refers only to time spent today by the signer, or if indicated, combined time spent today by collaborating physician/nurse practitioner.
[2018-01-01] MEDS: Dextrose 5%/Lactated Ringer's 1,000 ML IV.CONT SCH ×2 (13:45→21:03)
--- NOTE | 2018-01-01 16:49 | P.PNWCN ---
Wound Care Nurse Consult Description: Consult for New Ostomy Teaching ileostomy per MINGO Wolff Communicated with: HARPAL Muñiz Patient Recommendation: Empty pouch of effluent when 1/3-1/2 full Change appliance every 3 days and PRN for leaks PLEASE DO NOT REINFORCE WAFER, IF LEAKING, PLEASE REMOVE Additional information: Patient seen on for ostomy assessment, appliance change, and teaching. Bowel Diversion Stoma - Bowel Stoma Right Lower Abdomen Stoma Appearance: Protruding, Round (red, moist, functioning) Collection Device: Two-piece Drainage Description: Liquid, Green Wafer Size: 2 1/4 Moldable (although only size available on unit was 2 3/4" which was used with eleanor seal) Stoma Care: Pouch and Wafer Changed, Skin Care (3 skin tears noted that were cleansed, pat dry, covered in stoma powder and sealed with skin barrier film spray)
[2018-01-01] MEDS: Acetaminophen 325 MG Tablet PO PRN (18:25)
[2018-01-01] MEDS: Atenolol 50 MG Tablet PO SCH ×2 (20:18→20:19)
[2018-01-02] MEDS: Piperacil/Tazo 4.5 GM Premix 4.5 GM/100 ML BAG IV.SIG SCH ×4 (00:08→17:01)
[2018-01-02] MEDS: Oral Hygiene Kit OROPHARYNG SCH ×4 (00:08→16:47)
--- NOTE | 2018-01-02 05:17 | XR ---
EXAM DATE: 01/02/2018 4:17 AM EDT AGE/SEX: 87 years / Female INDICATIONS: Respiratory disease, CLINICAL DATA: This is the patient's subsequent encounter. Patient reports that signs and symptoms h ave been present for 3 weeks and indicates a pain score of Nonresponsive. MEDICAL/SURGICAL HISTORY: . Gastroesophageal reflux disease. Hypertension None. COMPARISON: [facility] [place], CHEST 1V SINGLE AP, 01/01/2018. . FINDINGS: Small to moderate pleural effusions and bibasilar consolidation again noted, not significantly change d. No pneumothorax. Heart size stable, within normal limits. Tortuous thoracic aorta. There is a left subclavian central venous catheter with tip in the superior vena cava. CONCLUSION: No significant change. Electronically signed by: Jhonatan Ferguson MD 01/02/2018 5:16 AM EDT
[2018-01-02] MEDS: Morphine Inj 4 MG/ML Vial IV.PUSH PRN ×2 (06:17→21:49)
[2018-01-02 06:23] LABS: Hematocrit 24.2 % (35.0-46.0); Hemoglobin 8.4 gm/dL (11.6-15.3); Mean Corpuscular HGB Conc 34.9 % (32.0-36.0); Mean Corpuscular Hemoglobin 33.7 pg (27.0-34.0); Mean Corpuscular Volume 96.5 fL (80.0-100.0); Mean Platelet Volume 10.5 fL (7.0-11.0); Platelet Count 121 th/mm3 (150-450); Red Blood Count 2.51 mil/mm3 (4.00-5.30); Red Cell Distribution Width 15.8 % (11.6-17.2); White Blood Count 6.6 th/mm3 (4.0-11.0)
[2018-01-02 06:35] LABS: Calcium 7.4 mg/dL (8.5-10.1); Carbon Dioxide 33.3 meq/L (21.0-32.0); Magnesium 1.6 mg/dL (1.5-2.5); Potassium 3.1 meq/L (3.5-5.1); Total Protein 4.7 g/dL (6.4-8.2)
[2018-01-02] MEDS: Metoprolol Inj 5 MG/5 ML Vial IV.PUSH PRN (06:41)
[2018-01-02] MEDS: Chlorhexidine 0.12% Oral Kit 15 ML UDC OROPHARYNG SCH ×2 (08:05→20:58)
[2018-01-02] MEDS: Albumin Human 25% Inj 100 ML IV.SIG SCH (08:05)
[2018-01-02] MEDS: Atenolol 50 MG Tablet PO SCH ×2 (08:06→21:18)
[2018-01-02] MEDS: Acetaminophen 325 MG Tablet PO PRN ×2 (08:06→16:45)
[2018-01-02] MEDS: Potassium Chloride 25 MEQ Effervescent Tablet NG/OG SCH ×2 (08:06→21:18)
[2018-01-02] MEDS: Potassium Chlor 40 mEq Premix 40 MEQ/100 ML PIGGYBACK IV.SIG PRN ×2 (08:08→13:31)
[2018-01-02] MEDS: Dextrose 5%/Lactated Ringer's 1,000 ML IV.CONT SCH ×2 (10:40→17:00)
--- NOTE | 2018-01-02 11:38 | P.PNGS ---
Subjective Interval history: DAILY PROGRESS NOTE FOR SURGICAL ATTENDING, DR. ROYA ALDRICH Weak voice but able to talk a little Physical Exam Vital signs: Vital Signs 01/01/18 12:00 01/01/18 16:00 01/01/18 16:38 Temperature 98.2 F 98.1 F Pulse Rate 107 H 97 H 99 H Respiratory Rate 21 20 22 Blood Pressure 169/71 H 148/55 H Pulse Oximetry 01/01/18 19:55 01/01/18 20:00 01/02/18 00:00 Temperature 97.5 F L 97.5 F L Pulse Rate 99 H 102 H 94 H Respiratory Rate 16 20 22 Blood Pressure 142/58 H 154/52 H Pulse Oximetry 97 95 100 01/02/18 03:48 01/02/18 04:00 01/02/18 09:00 Temperature 98.8 F Pulse Rate 97 H 110 H Respiratory Rate 20 18 12 Blood Pressure 148/56 H Pulse Oximetry 100 01/02/18 09:36 Temperature Pulse Rate 96 H Respiratory Rate 16 Blood Pressure Pulse Oximetry 94 L Intake & Output 01/01/18 01/02/18 01/02/18 18:59 06:59 18:59 Intake Total 1995 1316 / 1316 100 / 100 Output Total 2850 / 2850 3500 / 3500 Balance -854 / -854 -2184 / -2184 100 / 100 Weight 73.6 kg Intake: IV 1450 / 1450 800 / 800 100 / 100 D5W/LR Inj 1,000 ML @ 50 mls/hr 1000 / 1000 500 / 500 IV.CONT .Q20H JUANITA Rx#:[id number] Diprivan 1000 mg/100 ml Inj 1, 35 / 35 000 mg In 100 ml @ 5 MCG/KG/MIN 2.049 mls/hr IV.CONT TITRATE PRN Rx#:[id number] Pitressin Inj 40 UNIT In NS Inj 15 / 15 98 ML @ 0.04 UNITS/MIN 6 mls/ hr IV.CONT CONT JUANITA Rx#: [id number] Flexbumin 25% Inj 100 ML @ 60 100 / 100 100 / 100 100 / 100 mls/hr IV.SIG Q12H JUANITA Rx#: [id number] Zosyn 4.5 GM Premix 4.5 gm In 300 / 300 200 / 200 100 ml @ 200 mls/hr IV.SIG Q6H JUANITA Rx#:[id number] fentaNYL 10 mcg/mL Premix Drip 0 / 0 2,500 mcg In 250 ml @ 50 MCG/HR 5 mls/hr IV.SIG TITRATE PRN Rx #:[id number] Tube Feeding 426 / 426 516 / 516 Tube Irrigant 120 / 120 Output: Stool 550 / 550 Emesis 0 / 0 Urine Amount (Catheter) 2300 / 2300 2600 / 2600 Indwelling Urethral Catheter 2300 / 2300 2600 / 2600 Stool Amount (Stoma) 900 / 900 Right Lower Abdomen 900 / 900 Other: # Bowel Movements 1 Narrative: Awake and alert; voice weak Abd: midline incision with lennie; minimal serous drainage Ileostomy with liquid stool G tube with TF - Urinary Catheter Management Indwelling Urethral Catheter Cath placed during this visit: yes Reason for continuing: Hourly intake/output Insertion date: 12/24/17 Insertion time: 20:15 Results - Labs 01/02/18 05:30 01/02/18 05:30 Laboratory Results - last 24 hr 01/01/18 01/01/18 01/02/18 14:37 19:48 00:11 WBC RBC Hgb Hct MCV MCH MCHC RDW Plt Count MPV Sodium Potassium Chloride Carbon Dioxide Anion Gap BUN Creatinine Estimated GFR POC Glucose 102 121 H 122 H Random Glucose Calcium Prot Corrected Calcium Magnesium Total Bilirubin AST ALT Alkaline Phosphatase Total Protein Albumin 01/02/18 01/02/18 01/02/18 05:30 05:30 08:19 WBC 6.6 RBC 2.51 L Hgb 8.4 L Hct 24.2 L MCV 96.5 D MCH 33.7 MCHC 34.9 RDW 15.8 Plt Count 121 L MPV 10.5 Sodium 142 Potassium 3.1 L Chloride 101 Carbon Dioxide 33.3 H Anion Gap 8 BUN 8 Creatinine 0.97 Estimated GFR 65 L POC Glucose 108 Random Glucose 104 Calcium 7.4 L* Prot Corrected Calcium 8.8 Magnesium 1.6 Total Bilirubin 0.8 AST 22 ALT 13 Alkaline Phosphatase 71 Total Protein 4.7 L Albumin 2.0 L - Imaging Imaging: ITS Impressions Abdomen X-Ray 12/24/17 00:00 CONCLUSION: Dilated small bowel with collapse of the colon most characteristic of small bowel obstructive process. Calcific atherosclerotic vascular disease Abdomen/Pelvis CT 12/24/17 00:00 CONCLUSION: 1. Small to moderate amount of free air of concern for ruptured viscus. 2. Abnormal bowel gas pattern with dilated loops of small bowel and air-fluid levels most characteristic of a small bowel obstruction. 3. Moderate diverticulosis present. These findings were called to Dr. Aldrich at 1839 hours. Chest X-Ray 01/02/18 06:00 CONCLUSION: No significant change. Assessment and Plan - Assessment (1) Gastrostomy in place Code(s): Z93.1 - Gastrostomy status Status: Acute (2) Ileostomy in place Code(s): Z93.2 - Ileostomy status Status: Acute (3) Sepsis Code(s): A41.9 - Sepsis, unspecified organism Status: Acute (4) History of esophageal reflux Code(s): Z87.19 - Personal history of other diseases of the digestive system Status: Chronic (5) Free intraperitoneal air Code(s): K66.8 - Other specified disorders of peritoneum Status: Acute - Plan 87 year old female s/p lap converted to ex lap; resection of nonviable small bowel; ileostomy; POD2 ex lap; placement of G tube; closure of abdomen -CCM following--- now extubated -Tolerating TF -Hypertensive now -Palliative Care following -PT -Continue ileostomy care and teaching - Attending Attestation NOTE FOR SURGICAL ATTENDING, DR. ROYA ALDRICH Ileostomy functional Spoke with son at bedside Spoke with Dr. Israel snowboard instructor Will advance diet I agree with above assessment and plan. The exam, history, and the medical decision-making described in the above note were completed with the assistance of the mid-level provider. I reviewed and agree with the findings presented. I attest that I had a [id number] encounter with the patient on the same day, and personally performed and documented my assessment and findings in the medical record. The following services were provided during this hospital visit: Chart data review, vital sign assessments/reviewing monitor data Review of consultations notes if present. Medication orders/review and/or management Ordering and/or reviewing lab tests Ordering and/or interpreting/reviewing x-rays and/or diagnostic studies Care of the patient and discussion of the patient with the care team Documentation time To help prompt me to consider important information that might be impacting today's encounter and assessment, Information from prior notes written by myself or my colleagues may have been "brought forward/copy and pasted" into today's note. (3) Sepsis Qualifiers: Sepsis type: sepsis due to unspecified organism Qualified Code(s): A41.9 - Sepsis, unspecified organism
--- NOTE | 2018-01-02 13:15 | P.PNCC ---
Subjective Subjective Remarks/Hospital Course: 87yF originally admitted for abdominal pain and now found to have perforated hollow viscus with intra-abdominal free air. taken to OR emergently by Dr. Aldrich for exploratory laparotomy where they found small bowel perforation. small bowel was resected and due to significantly poor patient tissue and gross contamination of the field, patient was left in discontinuity with an open abdomen. arrives to the ICU intubated, critically ill, on vasopressors, in shock. sedated. no additional information is available from the patient; ROS unobtainable. 12/25: She remains oliguric and septic. We are unable to separate her from mechanical ventilation and are still correcting her metabolic acidosis. Pre- albumin of 5 implicates poor preoperative nutrition. Description of bowel from surgery lens support for a severely debilitated state prior to surgery. She is presently hemodynamically unstable and oliguric. 12/26: Magnesium, phosphate, potassium all low; presently being replaced. Persistent septic pattern. Scheduled for second look operation later today, anticipate discouraging findings. Acid-base balance acceptable in gas exchange good. Update: Back from OR. Well perfused. Clear lungs. Base -6. Urine acceptable. 12/27: Back from surgery yesterday with end ileostomy fashioned. Abdomen remains open with VAC dressing in place. Acid-base balance modestly improved and acceptable. Urine output acceptable and renal function remains close to normal. She remains hemodynamically unstable and rate wiring levo fed at 9 mcg/ min; typical of the smoldering septic picture. 12/28: Renal function remains acceptable. Requiring ongoing vasopressor support with Levophed. Acid-base balance largely corrected. Ileostomy is well perfused and functioning. Plan is to attempt to close the abdomen tomorrow. Blood sugar has twice dropped into the 20s when glucose containing IV solutions have all been stopped. Plan to start tube feeds when OK with surgical service. Please keep glucose containing solution running during operative procedures 12/29: Patient seen after OR. Abdomen closed, new J-tube in place. Ileostomy pink. Still requiring high-dose Levophed currently at 10 mcg/min. No hypoglycemia reported. For OR report is pending. Developed paroxysmal A. fib postop. Replace potassium and magnesium, give metoprolol as needed IV 12/30: Remains intubated sedated. Patient had episode of hypotension overnight. Currently still on vasopressin 0.04 IU. Hemoglobin is 7.1 I have ordered stat 1 unit PRBC. Remains on amiodarone currently sinus rhythm. Opens eyes to stimulation moves extremities purposefully 12/31: Remains on the vent, blood pressure has improved off vasopressin now. Grossly fluid positive approximately 25 KG. Showing generalized anasarca. Give IV Lasix 60 mg 1 and then 40 every 12 hours scheduled. Blood sugar remains low (72 am) despite D5 LR and tube feeds 01/01: Remains intubated currently off propofol only on fentanyl. Wakes up follows commands but remains weak lethargic. Urine output excellent with aggressive diuresis 6.2 L in 24 hours. D/W Dr. Aldrich 01/02: Patient was extubated yesterday tolerating well. Remains off pressors currently hypotensive. Atenolol was restarted yesterday. I will restart losartan and triamterene hydrochlorothiazide today. Son at the bedside updated he wants to continue intubation only Objective Vital Signs / I&O: Vital Signs 01/01/18 16:00 01/01/18 16:38 01/01/18 19:55 Temperature 98.1 F Pulse Rate 97 H 99 H 99 H Respiratory Rate 20 22 16 Blood Pressure 148/55 H Pulse Oximetry 97 01/01/18 20:00 01/02/18 00:00 01/02/18 03:48 Temperature 97.5 F L 97.5 F L Pulse Rate 102 H 94 H 97 H Respiratory Rate 20 22 20 Blood Pressure 142/58 H 154/52 H Pulse Oximetry 95 100 01/02/18 04:00 01/02/18 08:00 01/02/18 09:00 Temperature 98.8 F 98.9 F Pulse Rate 110 H 107 H Respiratory Rate 18 19 12 Blood Pressure 148/56 H 170/69 H Pulse Oximetry 100 94 L 01/02/18 09:36 01/02/18 12:00 Temperature 98.2 F Pulse Rate 96 H 98 H Respiratory Rate 16 18 Blood Pressure 167/62 H Pulse Oximetry 94 L 95 Intake & Output 01/01/18 01/02/18 01/02/18 18:59 06:59 18:59 Intake Total 1995 1316 / 1316 100 / 100 Output Total 2850 / 2850 3500 / 3500 Balance -854 / -854 -2184 / -2184 100 / 100 Weight 73.6 kg Intake: IV 1450 / 1450 800 / 800 100 / 100 D5W/LR Inj 1,000 ML @ 50 mls/hr 1000 / 1000 500 / 500 IV.CONT .Q20H [facility] Rx#:[id number] Diprivan 1000 mg/100 ml Inj 1, 35 / 35 000 mg In 100 ml @ 5 MCG/KG/MIN 2.049 mls/hr IV.CONT TITRATE PRN Rx#:[id number] Pitressin Inj 40 UNIT In NS Inj 15 / 15 98 ML @ 0.04 UNITS/MIN 6 mls/ hr IV.CONT CONT [facility] Rx#: [id number] Flexbumin 25% Inj 100 ML @ 60 100 / 100 100 / 100 100 / 100 mls/hr IV.SIG Q12H [facility] Rx#: [id number] Zosyn 4.5 GM Premix 4.5 gm In 300 / 300 200 / 200 100 ml @ 200 mls/hr IV.SIG Q6H [facility] Rx#:[id number] fentaNYL 10 mcg/mL Premix Drip 0 / 0 2,500 mcg In 250 ml @ 50 MCG/HR 5 mls/hr IV.SIG TITRATE PRN Rx #:[id number] Tube Feeding 426 / 426 516 / 516 Tube Irrigant 120 / 120 Output: Stool 550 / 550 Emesis 0 / 0 Urine Amount (Catheter) 2300 / 2300 2600 / 2600 Indwelling Urethral Catheter 2300 / 2300 2600 / 2600 Stool Amount (Stoma) 900 / 900 Right Lower Abdomen 900 / 900 Other: # Bowel Movements 1 Result Diagrams: 01/02/18 05:30 01/02/18 05:30 Objective Remarks: GENERAL: Frail, elderly female, on nasal cannula. No distress but appears frail SKIN: Well-perfused, but frail skin HEENT: Oral cavity is moist nasal cannula in place. Airway patent CARDIOVASCULAR: NSR regular rhythm. sinus tachycardia intermittently. Generalized edema improving RESPIRATORY: Equal chest rise. no wheezes. decreased breath sounds in bases. good bilateral air entry. GASTROINTESTINAL: Abdomen closed today, midline incision dressing intact. Ostomy with liquid output. G-tube in place, tolerating tube feeds MUSCULOSKELETAL: No obvious deformities. No clubbing or cyanosis. Anasarca+ NEUROLOGICAL: Lying in bed weak protecting airway. Able to state a few words. Follows commands 4 Procedures: Laparotomy and bowel resection 12/24 Laparotomy and ileostomy formation 12/26 Intubation and mechanical ventilation Assessment and Plan - Problem List (1) Respiratory failure requiring intubation Code(s): J96.90 - Respiratory failure, unspecified, unspecified whether with hypoxia or hypercapnia Status: Acute (2) Septic shock Code(s): A41.9 - Sepsis, unspecified organism; R65.21 - Severe sepsis with septic shock Status: Acute (3) Hypoglycemia Code(s): E16.2 - Hypoglycemia, unspecified Status: Acute (4) Non-STEMI (non-ST elevated myocardial infarction) Code(s): I21.4 - Non-ST elevation (NSTEMI) myocardial infarction Status: Acute (5) Free intraperitoneal air Code(s): K66.8 - Other specified disorders of peritoneum Status: Acute (6) Acute abdomen Code(s): R10.0 - Acute abdomen Status: Acute (7) Elevated lactic acid level Code(s): R79.89 - Other specified abnormal findings of blood chemistry Status : Acute (8) Ischemic bowel syndrome Code(s): K55.9 - Vascular disorder of intestine, unspecified Status: Acute - Assessment and Plan Plan: Assessment: 87yF with perforated small bowel now s/p emergent exploratory laparotomy, small bowel resection, left in discontinuity with open abdomen. iv antibiotics, vasopressors, iv fluid resuscitation. Critically ill. Went to OR today 12/29/2017 for abdomen closure. Plan by systems: Neurologic: Acute metabolic encephalopathy-improving Minimize sedation minimize sedation Use as needed Tylenol and morphine for pain Respiratory: Acute hypoxic and hypercarbic respiratory failure-improving Bilateral pleural effusion Extubated yesterday 01/01/2018 tolerating well Head of bed elevated, Nebs Wean FiO2 for goal SPO2 greater than 90% Diuresis as below Cardiovascular: Septic shock resolved Now hypotensive Paroxysmal A. fib with RVR-resolved Fluid overload IV Lasix 20 mg q12, (weight up by 25 KG, now achieving negative balance) Cannot anticoagulate for A. fib due to recent surgery, discontinued amiodarone IV digoxin 0.25 mg 1 given 12/29/2017 Keep magnesium more than 2.2, keep potassium more than 4 D5 LR at 50 mL/h (this is to prevent hypoglycemia) Tenormin restarted yesterday, restart losartan and triamterene/ hydrochlorothiazide today IV labetalol 20 mg every 2 hours as needed for SBP more than 160 Renal: Acute kidney injury-resolved Likely secondary to septic shock and volume depletion in the setting of small bowel perforation Continue Hankins, Frequent urine checks, Daily BMP Maintenance fluid resuscitation currently on D5/LR to prevent hypoglycemia. IV Lasix as above - Strict I/Os FEN/GI: Small bowel perforation Intra-abdominal sepsis Severe acute protein calorie malnutrition Hypocalcemia Hypomagnesemia s/p abdominal closure 12/30/17. Ileostomy pink, new G-tube in place. Tube feeds with Jevity 50 ml per hour per general surgery ICU electrolyte protocol Antibiotics as described below Dr. Aldrich following Heme/ID: Anemia secondary to acute blood loss Septic shock-resolving Intra-abdominal sepsis Status post 1 unit PRBCs in the OR. Additional 1 unit PRBC 12/30 Daily CBC Continue Zosyn IV Follow-up cultures-negative to date Endocrine: Hypoglycemia Hyperglycemia of critical illness Hypomagnesemia Hypokalemia -Continue D5 LR at 50 mL/h, check cortisol level -Aggressive electrolyte replacement -Prone to hypoglycemia if sugar not added to maintenance IV fluids. Prophylaxis: GI Prophylaxis PPI IV DVT Prophylaxis -SCDs Subcu heparin-hold immediate post op period due to anemia. Star today 01/02 with Lovenox 40 mg subcu daily Lines: 12/24 radial arterial line DC today 12/24 left subclavian triple-lumen catheter DC Today 12/24 Hankins Overall impression: This woman remains critically ill but stable following damage control surgery for spontaneous perforation of the bowel and peritonitis. She returned to the OR on 12/26 for ileostomy construction, returned to OR again 12/29/2017 for abdominal wound closure and G tube placement. Septic shock is resolved but remains grossly fluid overloaded. Continue aggressive diuresis. Restarting home meds slowly Level 3 Code Status: ALT CODE
--- NOTE | 2018-01-02 16:06 | P.PNPAL ---
Reason for Visit Reason for visit: a. To assist with evaluation and management of symptoms including: pain; dyspnea; encephalopathy b. To assist medical decision maker(s) with: better understanding of current medical conditions; weighing benefits/burdens of medical treatment options; making medical treatment decisions. Subjective Subjective/Interval History: Follow-up medically necessary for symptom management. Patient is more conversant today. Lethargic and oriented to self, place and situation. Patient currently denying pain. Patient states that she only has abdominal pain when she is coughing. Patient is an abdominal binder. Acetaminophen and morphine sulfate available for pain. Patient sparingly needing morphine sulfate. She remains on O2 3 L nasal cannula with O2 sat saturation in the mid to high 90s. Chest x-ray today unchanged from previous-still showing small to moderate pleural effusions and bibasilar consolidation. Physical therapy recommending PT at rehab. Case discussed with bedside RN. Family/Friend Interactions: No family at bedside Advance Directives Living Will: Never completed Health Care Surrogate: Never completed Durable Power of Human Resources Benefits Assistant: Never completed Documented care wishes:: No written documentation of health care goals/preferences . Objective Vital Signs: Vital Signs 01/01/18 16:00 01/01/18 16:38 01/01/18 19:55 Temperature 98.1 F Pulse Rate 97 H 99 H 99 H Respiratory Rate 20 22 16 Blood Pressure 148/55 H Pulse Oximetry 97 01/01/18 20:00 01/02/18 00:00 01/02/18 03:48 Temperature 97.5 F L 97.5 F L Pulse Rate 102 H 94 H 97 H Respiratory Rate 20 22 20 Blood Pressure 142/58 H 154/52 H Pulse Oximetry 95 100 01/02/18 04:00 01/02/18 08:00 01/02/18 09:00 Temperature 98.8 F 98.9 F Pulse Rate 110 H 107 H Respiratory Rate 18 19 12 Blood Pressure 148/56 H 170/69 H Pulse Oximetry 100 94 L 01/02/18 09:36 01/02/18 12:00 Temperature 98.2 F Pulse Rate 96 H 98 H Respiratory Rate 16 18 Blood Pressure 167/62 H Pulse Oximetry 94 L 95 Intake & Output 01/01/18 01/02/18 01/02/18 18:59 06:59 18:59 Intake Total 1995 / 1995 1316 / 1316 300 / 300 Output Total 2850 / 2850 3500 / 3500 Balance -854 / -854 -2184 / -2184 300 / 300 Weight 73.6 kg Intake: IV 1450 / 1450 800 / 800 300 / 300 D5W/LR Inj 1,000 ML @ 50 mls/hr 1000 / 1000 500 / 500 IV.CONT .Q20H [facility] Rx#:[id number] Diprivan 1000 mg/100 ml Inj 1, 35 / 35 000 mg In 100 ml @ 5 MCG/KG/MIN 2.049 mls/hr IV.CONT TITRATE PRN Rx#:[id number] Pitressin Inj 40 UNIT In NS Inj 15 / 15 98 ML @ 0.04 UNITS/MIN 6 mls/ hr IV.CONT CONT [facility] Rx#: [id number] Flexbumin 25% Inj 100 ML @ 60 100 / 100 100 / 100 100 / 100 mls/hr IV.SIG Q12H [facility] Rx#: [id number] Zosyn 4.5 GM Premix 4.5 gm In 300 / 300 200 / 200 100 / 100 100 ml @ 200 mls/hr IV.SIG Q6H [facility] Rx#:[id number] KCl 40 mEq Premix Inj 40 meq In 100 / 100 100 ml @ 25 mls/hr IV.SIG Q2H [facility] Rx#:[id number] fentaNYL 10 mcg/mL Premix Drip 0 / 0 2,500 mcg In 250 ml @ 50 MCG/HR 5 mls/hr IV.SIG TITRATE PRN Rx #:[id number] Tube Feeding 426 / 426 516 / 516 Tube Irrigant 120 / 120 Output: Stool 550 / 550 Emesis 0 / 0 Urine Amount (Catheter) 2300 / 2300 2600 / 2600 Indwelling Urethral Catheter 2300 / 2300 2600 / 2600 Stool Amount (Stoma) 900 / 900 Right Lower Abdomen 900 / 900 Other: # Bowel Movements 1 Physical Exam: CONSTITUTIONAL/GENERAL: This is an adequately nourished patient, in no acute distress. TUBES/LINES/DRAINS: left subclavian central line; castillo catheter; Gastrostomy tube, SCDs. SKIN: No jaundice or lesions. abdominal surgical wound covered with a primapore dressing. Skin temperature appropriate. Not diaphoretic. HEAD: Atraumatic. Normocephalic. EYES: PERRLA. No scleral icterus. No injection or drainage. Fundi not examined. ENT: Hearing normal. Nose without bleeding or purulent drainage. Moist oral mucosa. NECK: Trachea midline. CARDIOVASCULAR: Regular rate and rhythm without murmurs, gallops, or rubs. No JVD. Peripheral pulses symmetric. RESPIRATORY/CHEST: Symmetric, unlabored respirations. Clear to auscultation. Diminished breath sounds in the bases. No wheezes, rales, or rhonchi. GASTROINTESTINAL: Midline abdominal wound with dressing intact-has an abdominal binder. Gastrostomy with TF infusing @ 30ml/hr. Intermittent bowel sounds GENITOURINARY: Without palpable bladder distension. Castillo catheter in place. MUSCULOSKELETAL: Extremities without clubbing, cyanosis. Edema improving. SCDs in place. No mottling. NEUROLOGICAL: Lethargic and oriented to self, place and partially situation. Following simple commands with all 4 extremities. Weak. PSYCHIATRIC: No anxiety or obvious signs of depression. Calm. . Diagnostic Tests Laboratory: Laboratory Results - last 72 hr 12/30/17 12/30/17 12/31/17 08:13 21:55 05:30 WBC RBC Hgb Hct MCV MCH MCHC RDW Plt Count MPV Sodium 137 Potassium 3.7 3.6 Chloride 105 Carbon Dioxide 23.5 Anion Gap 9 BUN 6 L Creatinine 0.77 Estimated GFR 85 L POC Glucose Random Glucose 72 L Calcium 7.1 L* Prot Corrected Calcium 8.9 Phosphorus 2.8 Magnesium 1.5 Total Bilirubin AST ALT Alkaline Phosphatase Total Protein 4.0 L D Albumin MTS Gel Crossmatch See Detail 12/31/17 12/31/17 12/31/17 05:30 08:25 10:22 WBC 7.2 RBC 3.10 L Hgb 9.8 L D Hct 28.3 L MCV 91.4 MCH 31.5 MCHC 34.4 RDW 15.9 Plt Count 105 L D MPV 10.1 Sodium Potassium Chloride Carbon Dioxide Anion Gap BUN Creatinine Estimated GFR POC Glucose 78 85 Random Glucose Calcium Prot Corrected Calcium Phosphorus Magnesium Total Bilirubin AST ALT Alkaline Phosphatase Total Protein Albumin MTS Gel Crossmatch 12/31/17 12/31/17 12/31/17 14:10 14:22 16:09 WBC RBC Hgb Hct MCV MCH MCHC RDW Plt Count MPV Sodium 140 Potassium 3.8 Chloride 103 Carbon Dioxide 27.7 Anion Gap 9 BUN 7 Creatinine 0.89 Estimated GFR 72 L POC Glucose 85 80 Random Glucose 82 Calcium 7.4 L* Prot Corrected Calcium 8.9 Phosphorus Magnesium 2.1 D Total Bilirubin 0.9 AST 23 ALT 13 Alkaline Phosphatase 88 Total Protein 4.5 L Albumin 1.7 L MTS Gel Crossmatch 12/31/17 01/01/18 01/01/18 18:46 01:00 04:16 WBC RBC Hgb Hct MCV MCH MCHC RDW Plt Count MPV Sodium Potassium Chloride Carbon Dioxide Anion Gap BUN Creatinine Estimated GFR POC Glucose 89 84 97 Random Glucose Calcium Prot Corrected Calcium Phosphorus Magnesium Total Bilirubin AST ALT Alkaline Phosphatase Total Protein Albumin MTS Gel Crossmatch 01/01/18 01/01/18 01/01/18 06:40 06:40 14:37 WBC 5.9 RBC 2.81 L Hgb 8.9 L Hct 25.9 L MCV 92.0 MCH 31.6 MCHC 34.4 RDW 15.8 Plt Count 110 L MPV 10.8 Sodium 140 Potassium 3.3 L Chloride 103 Carbon Dioxide 27.5 Anion Gap 10 BUN 7 Creatinine 1.04 H Estimated GFR 60 L POC Glucose 102 Random Glucose 108 H Calcium 7.2 L* Prot Corrected Calcium 8.7 Phosphorus Magnesium 1.8 Total Bilirubin 0.9 AST 22 ALT 13 Alkaline Phosphatase 84 Total Protein 4.5 L Albumin 1.7 L MTS Gel Crossmatch 01/01/18 01/02/18 01/02/18 19:48 00:11 05:30 WBC 6.6 RBC 2.51 L Hgb 8.4 L Hct 24.2 L MCV 96.5 D MCH 33.7 MCHC 34.9 RDW 15.8 Plt Count 121 L MPV 10.5 Sodium Potassium Chloride Carbon Dioxide Anion Gap BUN Creatinine Estimated GFR POC Glucose 121 H 122 H Random Glucose Calcium Prot Corrected Calcium Phosphorus Magnesium Total Bilirubin AST ALT Alkaline Phosphatase Total Protein Albumin MTS Gel Crossmatch 01/02/18 01/02/18 01/02/18 05:30 08:19 12:35 WBC RBC Hgb Hct MCV MCH MCHC RDW Plt Count MPV Sodium 142 Potassium 3.1 L Chloride 101 Carbon Dioxide 33.3 H Anion Gap 8 BUN 8 Creatinine 0.97 Estimated GFR 65 L POC Glucose 108 96 Random Glucose 104 Calcium 7.4 L* Prot Corrected Calcium 8.8 Phosphorus Magnesium 1.6 Total Bilirubin 0.8 AST 22 ALT 13 Alkaline Phosphatase 71 Total Protein 4.7 L Albumin 2.0 L MTS Gel Crossmatch Result Diagrams: 01/02/18 05:30 01/02/18 05:30 Imaging: Abdomen X-Ray 12/24/17 00:00 CONCLUSION: Dilated small bowel with collapse of the colon most characteristic of small bowel obstructive process. Calcific atherosclerotic vascular disease Abdomen/Pelvis CT 12/24/17 00:00 CONCLUSION: 1. Small to moderate amount of free air of concern for ruptured viscus. 2. Abnormal bowel gas pattern with dilated loops of small bowel and air-fluid levels most characteristic of a small bowel obstruction. 3. Moderate diverticulosis present. These findings were called to Dr. Aldrich at 1839 hours. Chest X-Ray 01/02/18 06:00 CONCLUSION: No significant change. Procedures: Intubation/mechanical ventilation Left subclavian central line placement Right radial arterial line placement Exploratory lap --> resection of terminal ileum/appendectomy 12/26/17: Patient underwent removal of temporary abdominal closure device, abdominal exploration, small bowel resection, resection of cecum and terminal ileum, primary anastomosis of ileum to ascending colon, which the tissue was compromised and the anastomosis failed, resection of anastomosis, placement of ileostomy, cholecystectomy and placement of temporary abdominal closure device. 01/01/2018: Medically extubated . Assessment and Plan - Disease Oriented Problem List (1) Ischemic bowel syndrome (2) Septic shock (3) Sepsis (4) Anemia (5) Hypoalbuminemia - Symptom Scale (1) Pain 0-10 Scale: 3 (2) Dyspnea 0-10 Scale: Unable to quantify (3) Encephalopathy 0-10 Scale: Unable to quantify Comment: Improving. Medically extubated 01/01/18. Lethargic and oriented to self, place and partially situation. Pertinent Non-Medical Issues: Psychosocial: Originally from [place]. Moved to [facility] around 1991. High school graduate. 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 Two sons -- Yves and Don -- live locally and check in on her frequently. Spiritual: Tenriism and spirituality have not played a large role in her life. She does not belong to any local max group. She does pray, however. Legal: No known advanced directive. Without a designated healthcare surrogate, her sons would be the joint proxy healthcare decision makers. Ethical issues impacting care: Patient is incapacitated to make her own healthcare decisions. It is currently unknown if she will regain capacity to do so. Important Contacts: Don Johnson (son and co-proxy) [phone] Yves Jhonson (son and co-proxy) [phone] . Prognosis: Ms. Johnson is critically ill. She was in remarkably good shape for her age until about 2-3 weeks ago when her GI problems began, but she has gone into major surgery undernourished and post-operatively she is now hypotensive, bradycardic , and hypothermic. She is scheduled for additional surgery on 12/26/17. In spite of her relatively high level of functioning just weeks ago, she remains an grave risk of not surviving the hospitalization. Should she survive, the odds are that she would not get home again and would be either in a nursing facility or the hospital until her . At such time that patient or family feels that comfort measures only would be most in line with her goals, she would be eligible for hospice services. . Code Status: Alternative Code (No chest compressions, No shock) Plan: == Code Status: Alternative Code- No chest compressions, No shock. == Goals of medical treatment: As per discussion with patient`s son Don on status post patient`s medical extubation. He would want code status to remain as alternative code. If patient would be in respiratory distress he would like patient to be reintubated again and reiterates that he does not want chest compressions and shock. Goals remain aggressive. == Medical Decision making: There is no known written designation of healthcare surrogate. Patient medically extubated today 01/01. Patient is oriented to self, place and partially situation. Per [place] statutes hierarchy , proxy medical decision making would fall jointly to her two sons--Don and Yves. == Symptoms * Pain: There were no known prehospitalization pain syndromes. Current sources of pain include her recent abdominal surgery; orotracheal and nasogastric intubations; vascular access lines; prolonged bedbound status; Castillo catheter. prn Morphine sulfate and Acetaminophen available. Pain most likely adequately addressed. Patient denying pain. No further recommendations at this time. * Dyspnea: No known underlying lung disease. Current respiratory issues probably secondary to shock. Patient medically extubated today to O2 4L NC. Currently O2 saturation 100% with no signs of respiratory distress. Patient on Furosemide. Continue to monitor for respiratory distress. * Encephalopathy: No known underlying dementia. Encephalopathy is probably multifactorial with sepsis playing a large role. Patient medically extubated today. Minimally verbal. She is oriented to self, place and partially situation. Following simple commands. == At anytime goals of care should transition to "comfort measures only," patient would be eligible for hospice services. == Palliative care will continue to follow to assist with symptom management and to further clarify goals of medical treatment as the clinical course evolves. . Attestation Attestation: To help prompt me to consider important information that might be impacting today's encounter and assessment, information from prior notes written by myself or my colleagues may have been "brought forward" into today's note. My signature on this note, however, is an attestation that I personally performed the exam, history, and/or decision-making noted today, and, unless otherwise indicated, the interactions with patient, family, and staff as well as the review of records all occurred today. I also attest that the listed assessment and stated plan reflect my best clinical judgment today based on the combination of historical information, prior notes, and today's exam/ interactions. When time spent is documented, it refers only to time spent today by the signer, or if indicated, combined time spent today by collaborating physician/nurse practitioner.
[2018-01-02] MEDS: Labetalol HCl Inj 100 MG/20 ML Vial IV.PUSH PRN (16:46)
[2018-01-02] MEDS: Enoxaparin Inj 40 MG/0.4 ML Syringe SQ SCH (17:00)
[2018-01-03] MEDS: Oral Hygiene Kit OROPHARYNG SCH ×4 (00:26→17:45)
[2018-01-03] MEDS: Piperacil/Tazo 4.5 GM Premix 4.5 GM/100 ML BAG IV.SIG SCH ×4 (00:26→17:54)
[2018-01-03] MEDS: Chlorhexidine 0.12% Oral Kit 15 ML UDC OROPHARYNG SCH ×2 (08:02→20:36)
[2018-01-03] MEDS: Dextrose 5%/Lactated Ringer's 1,000 ML IV.CONT SCH (08:43)
[2018-01-03] MEDS: Atenolol 50 MG Tablet PO SCH ×2 (09:10→20:37)
[2018-01-03] MEDS: Potassium Chloride 25 MEQ Effervescent Tablet NG/OG SCH ×2 (09:10→20:37)
[2018-01-03] MEDS: Enoxaparin Inj 40 MG/0.4 ML Syringe SQ SCH (09:10)
--- NOTE | 2018-01-03 11:40 | P.PNCC ---
Subjective Subjective Remarks/Hospital Course: 87yF originally admitted for abdominal pain and now found to have perforated hollow viscus with intra-abdominal free air. taken to OR emergently by Dr. Aldrich for exploratory laparotomy where they found small bowel perforation. small bowel was resected and due to significantly poor patient tissue and gross contamination of the field, patient was left in discontinuity with an open abdomen. arrives to the ICU intubated, critically ill, on vasopressors, in shock. sedated. no additional information is available from the patient; ROS unobtainable. 12/25: She remains oliguric and septic. We are unable to separate her from mechanical ventilation and are still correcting her metabolic acidosis. Pre- albumin of 5 implicates poor preoperative nutrition. Description of bowel from surgery lens support for a severely debilitated state prior to surgery. She is presently hemodynamically unstable and oliguric. 12/26: Magnesium, phosphate, potassium all low; presently being replaced. Persistent septic pattern. Scheduled for second look operation later today, anticipate discouraging findings. Acid-base balance acceptable in gas exchange good. Update: Back from OR. Well perfused. Clear lungs. Base -6. Urine acceptable. 12/27: Back from surgery yesterday with end ileostomy fashioned. Abdomen remains open with VAC dressing in place. Acid-base balance modestly improved and acceptable. Urine output acceptable and renal function remains close to normal. She remains hemodynamically unstable and rate wiring levo fed at 9 mcg/ min; typical of the smoldering septic picture. 12/28: Renal function remains acceptable. Requiring ongoing vasopressor support with Levophed. Acid-base balance largely corrected. Ileostomy is well perfused and functioning. Plan is to attempt to close the abdomen tomorrow. Blood sugar has twice dropped into the 20s when glucose containing IV solutions have all been stopped. Plan to start tube feeds when OK with surgical service. Please keep glucose containing solution running during operative procedures 12/29: Patient seen after OR. Abdomen closed, new J-tube in place. Ileostomy pink. Still requiring high-dose Levophed currently at 10 mcg/min. No hypoglycemia reported. For OR report is pending. Developed paroxysmal A. fib postop. Replace potassium and magnesium, give metoprolol as needed IV 12/30: Remains intubated sedated. Patient had episode of hypotension overnight. Currently still on vasopressin 0.04 IU. Hemoglobin is 7.1 I have ordered stat 1 unit PRBC. Remains on amiodarone currently sinus rhythm. Opens eyes to stimulation moves extremities purposefully 12/31: Remains on the vent, blood pressure has improved off vasopressin now. Grossly fluid positive approximately 25 KG. Showing generalized anasarca. Give IV Lasix 60 mg 1 and then 40 every 12 hours scheduled. Blood sugar remains low (72 am) despite D5 LR and tube feeds 01/01: Remains intubated currently off propofol only on fentanyl. Wakes up follows commands but remains weak lethargic. Urine output excellent with aggressive diuresis 6.2 L in 24 hours. D/W Dr. Aldrich 01/02: Patient was extubated yesterday tolerating well. Remains off pressors currently hypotensive. Atenolol was restarted yesterday. I will restart losartan and triamterene hydrochlorothiazide today. Son at the bedside updated he wants to continue intubation only. 01/03: Extubated and breathing comfortably. Protects airway well no obstructive noises. Nutritional status remains problematic and we are pushing adjunctive nutrition. Objective Vital Signs / I&O: Vital Signs 01/02/18 12:00 01/02/18 16:00 01/02/18 16:18 Temperature 98.2 F 98.2 F Pulse Rate 98 H 97 H 109 H Respiratory Rate Blood Pressure 167/62 H 180/83 H Pulse Oximetry 95 100 01/02/18 17:00 01/02/18 18:00 01/02/18 20:00 Temperature 97.9 F Pulse Rate 100 H Respiratory Rate 20 Blood Pressure 160/77 H 134/64 153/74 H Pulse Oximetry 96 01/02/18 20:52 01/03/18 00:00 01/03/18 04:00 Temperature 98.1 F 98.7 F Pulse Rate 98 H 90 96 H Respiratory Rate 17 16 18 Blood Pressure 162/79 H 172/70 H Pulse Oximetry 93 L 93 L 96 01/03/18 07:26 01/03/18 08:00 Temperature Pulse Rate 106 H 95 H Respiratory Rate 16 Blood Pressure Pulse Oximetry 96 96 Intake & Output 01/02/18 01/03/18 01/03/18 18:59 06:59 18:59 Intake Total 6903 / 6903 773 / 773 375 / 375 Output Total 3350 / 3350 3400 / 3400 Balance 3553 / 3553 -2627 / -2627 375 / 375 Weight 70.5 kg Intake: IV 1510 / 1510 215 / 215 375 / 375 D5W/LR Inj 1,000 ML @ 50 mls/hr 1025 / 1025 375 / 375 IV.CONT .Q20H JUANITA Rx#:[id number] Flexbumin 25% Inj 100 ML @ 60 100 / 100 mls/hr IV.SIG Q12H JUANITA Rx#: [id number] Zosyn 4.5 GM Premix 4.5 gm In 200 / 200 200 / 200 100 ml @ 200 mls/hr IV.SIG Q6H JUANITA Rx#:[id number] KCl 40 mEq Premix Inj 40 meq In 185 / 185 15 / 15 100 ml @ 25 mls/hr IV.SIG Q2H PRN Rx#:[id number] Tube Feeding 5213 / 5213 558 / 558 Tube Irrigant 180 / 180 Output: Stool 650 / 650 Emesis 0 / 0 Urine Amount (Catheter) 2700 / 2700 2500 / 2500 Indwelling Urethral Catheter 2700 / 2700 2500 / 2500 Stool Amount (Stoma) 900 / 900 Right Lower Abdomen 900 / 900 Other: Date of Last Bowel Movement 01/03/18 Result Diagrams: 01/02/18 05:30 01/02/18 22:00 Objective Remarks: GENERAL: Weak, elderly female, on nasal cannula. No distress but appears frail SKIN: Well-perfused, but fragile skin HEENT: Oral cavity is moist nasal cannula in place. Airway patent, no obstructive noises. CARDIOVASCULAR: NSR regular rhythm. sinus tachycardia intermittently. Generalized edema resolving. RESPIRATORY: Equal chest rise. no wheezes. decreased breath sounds in bases. good bilateral air entry. GASTROINTESTINAL: Abdomen closed today, midline incision dressing intact. Ostomy with liquid output. G-tube in place, tolerating tube feeds MUSCULOSKELETAL: No obvious deformities. No clubbing or cyanosis. Anasarca+ NEUROLOGICAL: Lying in bed. Weak, protecting airway. Able to state a few words. Follows commands 4 limbs. Procedures: Laparotomy and bowel resection 12/24 Laparotomy and ileostomy formation 12/26 Intubation and mechanical ventilation Assessment and Plan - Problem List (1) Respiratory failure requiring intubation Code(s): J96.90 - Respiratory failure, unspecified, unspecified whether with hypoxia or hypercapnia Status: Acute (2) Septic shock Code(s): A41.9 - Sepsis, unspecified organism; R65.21 - Severe sepsis with septic shock Status: Acute (3) Hypoglycemia Code(s): E16.2 - Hypoglycemia, unspecified Status: Acute (4) Non-STEMI (non-ST elevated myocardial infarction) Code(s): I21.4 - Non-ST elevation (NSTEMI) myocardial infarction Status: Acute (5) Free intraperitoneal air Code(s): K66.8 - Other specified disorders of peritoneum Status: Acute (6) Acute abdomen Code(s): R10.0 - Acute abdomen Status: Acute (7) Elevated lactic acid level Code(s): R79.89 - Other specified abnormal findings of blood chemistry Status : Acute (8) Ischemic bowel syndrome Code(s): K55.9 - Vascular disorder of intestine, unspecified Status: Acute - Assessment and Plan Plan: Assessment: 87yF with perforated small bowel now s/p emergent exploratory laparotomy, small bowel resection, left in discontinuity with open abdomen. iv antibiotics, vasopressors, iv fluid resuscitation. Critically ill. Went to OR today 12/29/2017 for abdomen closure. Plan by systems: Neurologic: Acute metabolic encephalopathy-improving Minimize sedation minimize sedation Use as needed Tylenol and morphine for pain Respiratory: Acute hypoxic and hypercarbic respiratory failure-improving Bilateral pleural effusion Extubated yesterday 01/01/2018 tolerating well Head of bed elevated, Nebs Wean FiO2 for goal SPO2 greater than 90% Diuresis as below Cardiovascular: Septic shock resolved Now hypotensive Paroxysmal A. fib with RVR-resolved Fluid overload IV Lasix 20 mg q12, (weight up by 25 KG, now achieving negative balance) Cannot anticoagulate for A. fib due to recent surgery, discontinued amiodarone IV digoxin 0.25 mg 1 given 12/29/2017 Keep magnesium more than 2.2, keep potassium more than 4 D5 LR at 50 mL/h (this is to prevent hypoglycemia) Tenormin restarted yesterday, restart losartan and triamterene/ hydrochlorothiazide today IV labetalol 20 mg every 2 hours as needed for SBP more than 160 Renal: Acute kidney injury-resolved Likely secondary to septic shock and volume depletion in the setting of small bowel perforation Continue Hankins, Frequent urine checks, Daily BMP Maintenance fluid resuscitation currently on D5/LR to prevent hypoglycemia. IV Lasix as above - Strict I/Os FEN/GI: Small bowel perforation Intra-abdominal sepsis Severe acute protein calorie malnutrition Hypocalcemia Hypomagnesemia s/p abdominal closure 12/30/17. Ileostomy pink, new G-tube in place. Tube feeds with Jevity 50 ml per hour per general surgery ICU electrolyte protocol Antibiotics as described below Dr. Aldrich following Heme/ID: Anemia secondary to acute blood loss Septic shock-resolving Intra-abdominal sepsis Status post 1 unit PRBCs in the OR. Additional 1 unit PRBC 12/30 Daily CBC Continue Zosyn IV Follow-up cultures-negative to date Endocrine: Hypoglycemia Hyperglycemia of critical illness Hypomagnesemia Hypokalemia -Continue D5 LR at 50 mL/h, check cortisol level -Aggressive electrolyte replacement -Prone to hypoglycemia if sugar not added to maintenance IV fluids. Prophylaxis: GI Prophylaxis PPI IV DVT Prophylaxis -SCDs Subcu heparin-hold immediate post op period due to anemia. Star today 01/02 with Lovenox 40 mg subcu daily Lines: 12/24 radial arterial line DC today 12/24 left subclavian triple-lumen catheter DC 01/02. 12/24 Hankins Overall impression: This woman remains chronically ill but stable following damage control surgery for spontaneous perforation of the bowel and peritonitis. She returned to the OR on 12/26 for ileostomy construction, returned to OR again 12/29/2017 for abdominal wound closure and G tube placement. Septic shock is resolved but remains grossly fluid overloaded. Continue aggressive diuresis. Restarting home meds slowly, blood pressure control acceptable.
--- NOTE | 2018-01-03 14:47 | P.PNGS ---
Subjective Patient reports: feels better, bowel movement Physical Exam Vital signs: Vital Signs 01/02/18 16:00 01/02/18 16:18 01/02/18 17:00 Temperature 98.2 F Pulse Rate 97 H 109 H Respiratory Rate 18 22 Blood Pressure 180/83 H 160/77 H Pulse Oximetry 100 01/02/18 18:00 01/02/18 20:00 01/02/18 20:52 Temperature 97.9 F Pulse Rate 100 H 98 H Respiratory Rate 20 17 Blood Pressure 134/64 153/74 H Pulse Oximetry 96 93 L 01/03/18 00:00 01/03/18 04:00 01/03/18 07:26 Temperature 98.1 F 98.7 F Pulse Rate 90 96 H 106 H Respiratory Rate 16 18 16 Blood Pressure 162/79 H 172/70 H Pulse Oximetry 93 L 96 96 01/03/18 08:00 01/03/18 12:00 Temperature 98.4 F 98.9 F Pulse Rate 108 H 100 H Respiratory Rate 22 22 Blood Pressure 173/86 H 131/67 Pulse Oximetry 96 95 Intake & Output 01/02/18 01/03/18 01/03/18 18:59 06:59 18:59 Intake Total 6903 / 6903 773 / 773 475 / 475 Output Total 3350 / 3350 3400 / 3400 Balance 3553 / 3553 -2627 / -2627 475 / 475 Weight 70.5 kg Intake: IV 1510 / 1510 215 / 215 475 / 475 D5W/LR Inj 1,000 ML @ 50 mls/hr 1025 / 1025 375 / 375 IV.CONT .Q20H JUANITA Rx#:[id number] Flexbumin 25% Inj 100 ML @ 60 100 / 100 mls/hr IV.SIG Q12H JUANITA Rx#: [id number] Zosyn 4.5 GM Premix 4.5 gm In 200 / 200 200 / 200 100 / 100 100 ml @ 200 mls/hr IV.SIG Q6H JUANITA Rx#:[id number] KCl 40 mEq Premix Inj 40 meq In 185 / 185 15 / 15 100 ml @ 25 mls/hr IV.SIG Q2H PRN Rx#:[id number] Tube Feeding 5213 / 5213 558 / 558 Tube Irrigant 180 / 180 Output: Stool 650 / 650 Emesis 0 / 0 Urine Amount (Catheter) 2700 / 2700 2500 / 2500 Indwelling Urethral Catheter 2700 / 2700 2500 / 2500 Stool Amount (Stoma) 900 / 900 Right Lower Abdomen 900 / 900 Other: Date of Last Bowel Movement 01/03/18 - Constitutional no acute distress - Routine Abdominal Exam Present: soft Comments: ostomy output - Urinary Catheter Management Indwelling Urethral Catheter Cath placed during this visit: yes Reason for continuing: Hourly intake/output Insertion date: 12/24/17 Insertion time: 20:15 Results - Labs 01/02/18 05:30 01/02/18 22:00 Laboratory Results - last 24 hr 01/02/18 01/02/18 01/02/18 15:29 18:16 21:58 Potassium POC Glucose 130 H 90 Cortisol 11.8 01/02/18 01/03/18 01/03/18 22:00 06:17 06:18 Potassium 3.7 POC Glucose 77 95 Cortisol - Imaging Imaging: ITS Impressions Abdomen X-Ray 12/24/17 00:00 CONCLUSION: Dilated small bowel with collapse of the colon most characteristic of small bowel obstructive process. Calcific atherosclerotic vascular disease Abdomen/Pelvis CT 12/24/17 00:00 CONCLUSION: 1. Small to moderate amount of free air of concern for ruptured viscus. 2. Abnormal bowel gas pattern with dilated loops of small bowel and air-fluid levels most characteristic of a small bowel obstruction. 3. Moderate diverticulosis present. These findings were called to Dr. Aldrich at 1839 hours. Chest X-Ray 01/02/18 06:00 CONCLUSION: No significant change. 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 -CCM following--- now extubated -Tolerating TF -Hypertensive now -Palliative Care following -PT -Continue ileostomy care and teaching -passed swallow eval, advance diet, +BM, +ostomy output (3) Sepsis Qualifiers: Sepsis type: sepsis due to unspecified organism Qualified Code(s): A41.9 - Sepsis, unspecified organism
[2018-01-03] MEDS: Dextrose 50% in Water 50 ML Vial IV.PUSH PRN (15:31)
[2018-01-04] MEDS: Piperacil/Tazo 4.5 GM Premix 4.5 GM/100 ML BAG IV.SIG SCH ×4 (00:01→17:01)
[2018-01-04] MEDS: Oral Hygiene Kit OROPHARYNG SCH ×4 (00:01→16:57)
[2018-01-04] MEDS: Dextrose 50% in Water 50 ML Vial IV.PUSH PRN (00:01)
[2018-01-04] MEDS: Labetalol HCl Inj 100 MG/20 ML Vial IV.PUSH PRN (02:22)
[2018-01-04] MEDS: Morphine Inj 4 MG/ML Vial IV.PUSH PRN (05:58)
[2018-01-04] MEDS: Dextrose 5%/Lactated Ringer's 1,000 ML IV.CONT SCH (08:02)
[2018-01-04] MEDS: Chlorhexidine 0.12% Oral Kit 15 ML UDC OROPHARYNG SCH ×2 (08:02→20:20)
[2018-01-04] MEDS: Enoxaparin Inj 40 MG/0.4 ML Syringe SQ SCH (08:03)
[2018-01-04] MEDS: Potassium Chloride 25 MEQ Effervescent Tablet NG/OG SCH ×2 (08:03→20:20)
[2018-01-04] MEDS: Atenolol 50 MG Tablet PO SCH ×2 (08:04→20:20)
[2018-01-04] MEDS ORDERED: Sod Chloride 0.9% Inj 1,000 ML IV.SIG ONE (10:00)
--- NOTE | 2018-01-04 12:16 | P.PNCC ---
Subjective Subjective Remarks/Hospital Course: 87yF originally admitted for abdominal pain and now found to have perforated hollow viscus with intra-abdominal free air. taken to OR emergently by Dr. Aldrich for exploratory laparotomy where they found small bowel perforation. small bowel was resected and due to significantly poor patient tissue and gross contamination of the field, patient was left in discontinuity with an open abdomen. arrives to the ICU intubated, critically ill, on vasopressors, in shock. sedated. no additional information is available from the patient; ROS unobtainable. 12/25: She remains oliguric and septic. We are unable to separate her from mechanical ventilation and are still correcting her metabolic acidosis. Pre- albumin of 5 implicates poor preoperative nutrition. Description of bowel from surgery lens support for a severely debilitated state prior to surgery. She is presently hemodynamically unstable and oliguric. 12/26: Magnesium, phosphate, potassium all low; presently being replaced. Persistent septic pattern. Scheduled for second look operation later today, anticipate discouraging findings. Acid-base balance acceptable in gas exchange good. Update: Back from OR. Well perfused. Clear lungs. Base -6. Urine acceptable. 12/27: Back from surgery yesterday with end ileostomy fashioned. Abdomen remains open with VAC dressing in place. Acid-base balance modestly improved and acceptable. Urine output acceptable and renal function remains close to normal. She remains hemodynamically unstable and rate wiring levo fed at 9 mcg/ min; typical of the smoldering septic picture. 12/28: Renal function remains acceptable. Requiring ongoing vasopressor support with Levophed. Acid-base balance largely corrected. Ileostomy is well perfused and functioning. Plan is to attempt to close the abdomen tomorrow. Blood sugar has twice dropped into the 20s when glucose containing IV solutions have all been stopped. Plan to start tube feeds when OK with surgical service. Please keep glucose containing solution running during operative procedures 12/29: Patient seen after OR. Abdomen closed, new J-tube in place. Ileostomy pink. Still requiring high-dose Levophed currently at 10 mcg/min. No hypoglycemia reported. For OR report is pending. Developed paroxysmal A. fib postop. Replace potassium and magnesium, give metoprolol as needed IV 12/30: Remains intubated sedated. Patient had episode of hypotension overnight. Currently still on vasopressin 0.04 IU. Hemoglobin is 7.1 I have ordered stat 1 unit PRBC. Remains on amiodarone currently sinus rhythm. Opens eyes to stimulation moves extremities purposefully 12/31: Remains on the vent, blood pressure has improved off vasopressin now. Grossly fluid positive approximately 25 KG. Showing generalized anasarca. Give IV Lasix 60 mg 1 and then 40 every 12 hours scheduled. Blood sugar remains low (72 am) despite D5 LR and tube feeds 01/01: Remains intubated currently off propofol only on fentanyl. Wakes up follows commands but remains weak lethargic. Urine output excellent with aggressive diuresis 6.2 L in 24 hours. D/W Dr. Aldrich 01/02: Patient was extubated yesterday tolerating well. Remains off pressors currently hypotensive. Atenolol was restarted yesterday. I will restart losartan and triamterene hydrochlorothiazide today. Son at the bedside updated he wants to continue intubation only. 01/03: Extubated and breathing comfortably. Protects airway well no obstructive noises. Nutritional status remains problematic and we are pushing adjunctive nutrition. 01/04: Excess water coming off nicely over the past 4 days and renal function remains on impaired. She is required 50% dextrose for hypoglycemia again and the etiology of this remains unclear. The suspicion is that her liver is not storing glycogen properly following her resuscitation from the shock state. I will start 10% dextrose this IV until this problem resolves. Will have to follow her caloric intake closely now that she is starting to feed. Moderate contraction alkalosis will require a carbonic anhydrase inhibitor for a day or 2. Objective Vital Signs / I&O: Vital Signs 01/03/18 15:22 01/03/18 16:00 01/03/18 20:00 Temperature 98.3 F 99.0 F Pulse Rate 108 H 110 H 108 H Respiratory Rate 20 24 16 Blood Pressure 164/78 H 99/55 L Pulse Oximetry 94 L 96 01/03/18 20:43 01/04/18 00:00 01/04/18 04:00 Temperature 97.9 F 98.3 F Pulse Rate 103 H 110 H 108 H Respiratory Rate 18 16 20 Blood Pressure 128/66 95/54 L Pulse Oximetry 95 96 93 L 01/04/18 05:01 01/04/18 07:32 01/04/18 08:00 Temperature 98.6 F Pulse Rate 103 H 110 H Respiratory Rate 18 Blood Pressure 108/58 L Pulse Oximetry 93 L 92 L 01/04/18 08:15 Temperature Pulse Rate 104 H Respiratory Rate 22 Blood Pressure Pulse Oximetry Intake & Output 01/03/18 01/04/18 01/04/18 18:59 06:59 18:59 Intake Total 1142 / 1142 100 / 100 700 / 700 Output Total 2950 / 2950 1300 / 1300 Balance -1808 / -1808 -1200 / -1200 700 / 700 Weight 68.1 kg Intake: IV 575 / 575 100 / 100 700 / 700 D5W/LR Inj 1,000 ML @ 50 mls/hr 375 / 375 600 / 600 IV.CONT .Q20H [facility] Rx#:[id number] Zosyn 4.5 GM Premix 4.5 gm In 200 / 200 100 / 100 100 / 100 100 ml @ 200 mls/hr IV.SIG Q6H [facility] Rx#:[id number] Tube Feeding 567 / 567 Output: Stool 1525 / 1525 Urine Amount (Catheter) 1425 / 1425 700 / 700 Indwelling Urethral Catheter 1425 / 1425 700 / 700 Stool Amount (Stoma) 600 / 600 Right Lower Abdomen 600 / 600 Other: Date of Last Bowel Movement 01/03/18 01/03/18 01/04/18 # Bowel Movements 0 Result Diagrams: 01/02/18 05:30 01/02/18 22:00 Objective Remarks: GENERAL: Weak, elderly female, on nasal cannula. No distress but still appears frail SKIN: Well-perfused, but fragile skin HEENT: Nasal cannula. Airway patent, no obstructive noises. CARDIOVASCULAR: NSR regular rhythm. Generalized edema resolving. RESPIRATORY: Equal chest rise. no wheezes. decreased breath sounds in bases. good bilateral air entry. Clear. GASTROINTESTINAL: Abdomen closed, midline incision dressing intact. Ostomy with liquid output, viable. G-tube in place, tolerating tube feeds MUSCULOSKELETAL: No obvious deformities. No clubbing or cyanosis. Limbs well perfused. NEUROLOGICAL: Lying in bed. Weak, protecting airway. Able to state a few words. Follows commands 4 limbs. Procedures: Laparotomy and bowel resection 12/24 Laparotomy and ileostomy formation 12/26 Intubation and mechanical ventilation Assessment and Plan - Problem List (1) Respiratory failure requiring intubation Code(s): J96.90 - Respiratory failure, unspecified, unspecified whether with hypoxia or hypercapnia Status: Acute (2) Septic shock Code(s): A41.9 - Sepsis, unspecified organism; R65.21 - Severe sepsis with septic shock Status: Acute (3) Hypoglycemia Code(s): E16.2 - Hypoglycemia, unspecified Status: Acute (4) Non-STEMI (non-ST elevated myocardial infarction) Code(s): I21.4 - Non-ST elevation (NSTEMI) myocardial infarction Status: Acute (5) Free intraperitoneal air Code(s): K66.8 - Other specified disorders of peritoneum Status: Acute (6) Acute abdomen Code(s): R10.0 - Acute abdomen Status: Acute (7) Elevated lactic acid level Code(s): R79.89 - Other specified abnormal findings of blood chemistry Status : Acute (8) Ischemic bowel syndrome Code(s): K55.9 - Vascular disorder of intestine, unspecified Status: Acute - Assessment and Plan Plan: Assessment: 87yF with perforated small bowel now s/p emergent exploratory laparotomy, small bowel resection, left in discontinuity with open abdomen. iv antibiotics, vasopressors, iv fluid resuscitation. Critically ill. Went to OR today 12/29/2017 for abdomen closure. Started to take p.o. today. Watch closely. Plan by systems: Neurologic: Acute metabolic encephalopathy-improving Minimize sedation minimize sedation Use as needed Tylenol and morphine for pain Respiratory: Acute hypoxic and hypercarbic respiratory failure-improving Bilateral pleural effusion Extubated yesterday 01/01/2018 tolerating well Head of bed elevated, Nebs Wean FiO2 for goal SPO2 greater than 90% Diuresis as below Diamox 1 today. Cardiovascular: Septic shock resolved Now hypotensive Paroxysmal A. fib with RVR-resolved Fluid overload IV Lasix 20 mg q12, (weight up by 25 KG, now achieving negative balance) Cannot anticoagulate for A. fib due to recent surgery, discontinued amiodarone IV digoxin 0.25 mg 1 given 12/29/2017 Keep magnesium more than 2.2, keep potassium more than 4 D5 LR at 50 mL/h (this is to prevent hypoglycemia) Tenormin restarted yesterday, restart losartan and triamterene/ hydrochlorothiazide today IV labetalol 20 mg every 2 hours as needed for SBP more than 160 Renal: Acute kidney injury-resolved Likely secondary to septic shock and volume depletion in the setting of small bowel perforation Continue Hankins, Frequent urine checks, Daily BMP Maintenance fluid resuscitation currently on D5/LR to prevent hypoglycemia. IV Lasix as above - Strict I/Os -Successful diuresis over past 5 days. FEN/GI: Small bowel perforation Intra-abdominal sepsis Severe acute protein calorie malnutrition Hypocalcemia Hypomagnesemia s/p abdominal closure 12/30/17. Ileostomy pink, new G-tube in place. Tube feeds with Jevity 50 ml per hour per general surgery ICU electrolyte protocol Antibiotics as described below Dr. Aldrich following Heme/ID: Anemia secondary to acute blood loss Septic shock-resolving Intra-abdominal sepsis Status post 1 unit PRBCs in the OR. Additional 1 unit PRBC 12/30 Daily CBC Continue Zosyn IV Follow-up cultures-negative to date Endocrine: Hypoglycemia Hyperglycemia of critical illness Hypomagnesemia Hypokalemia -Continue D5 LR at 50 mL/h, check cortisol level -Aggressive electrolyte replacement -Prone to hypoglycemia if sugar not added to maintenance IV fluids. Prophylaxis: GI Prophylaxis PPI IV DVT Prophylaxis -SCDs Subcu heparin-hold immediate post op period due to anemia. Star today 01/02 with Lovenox 40 mg subcu daily Lines: 12/24 radial arterial line DC today 12/24 left subclavian triple-lumen catheter DC 01/02. 12/24 Hankins Overall impression: This woman remains chronically ill but stable following damage control surgery for spontaneous perforation of the bowel and peritonitis. She returned to the OR on 12/26 for ileostomy construction, returned to OR again 12/29/2017 for abdominal wound closure and G tube placement. Septic shock is resolved but remains grossly fluid overloaded. Continue aggressive diuresis. Restarting home meds slowly, blood pressure control acceptable.
[2018-01-04] MEDS: Dextrose 10% in Water Inj 1,000 ML IV.CONT SCH (13:00)
--- NOTE | 2018-01-04 14:14 | P.PNGS ---
Subjective Patient reports: no new complaints, feels better Interval history: DAILY PROGRESS NOTE FOR SURGICAL ATTENDING, DR. ROYA ALDRICH Family at bedside Patient has no real complaints Soft-spoken no shortness of breath or abdominal discomfort Physical Exam Vital signs: Vital Signs 01/03/18 15:22 01/03/18 16:00 01/03/18 20:00 Temperature 98.3 F 99.0 F Pulse Rate 108 H 110 H 108 H Respiratory Rate 20 24 16 Blood Pressure 164/78 H 99/55 L Pulse Oximetry 94 L 96 01/03/18 20:43 01/04/18 00:00 01/04/18 04:00 Temperature 97.9 F 98.3 F Pulse Rate 103 H 110 H 108 H Respiratory Rate 18 16 20 Blood Pressure 128/66 95/54 L Pulse Oximetry 95 96 93 L 01/04/18 05:01 01/04/18 07:32 01/04/18 08:00 Temperature 98.6 F Pulse Rate 103 H 110 H Respiratory Rate 18 22 Blood Pressure 108/58 L Pulse Oximetry 93 L 92 L 01/04/18 08:15 Temperature Pulse Rate 104 H Respiratory Rate 22 Blood Pressure Pulse Oximetry Intake & Output 01/03/18 01/04/18 01/04/18 18:59 06:59 18:59 Intake Total 1142 / 1142 100 / 100 700 / 700 Output Total 2950 / 2950 1300 / 1300 Balance -1808 / -1808 -1200 / -1200 700 / 700 Weight 68.1 kg Intake: IV 575 / 575 100 / 100 700 / 700 D5W/LR Inj 1,000 ML @ 50 mls/hr 375 / 375 600 / 600 IV.CONT .Q20H [facility] Rx#:[id number] Zosyn 4.5 GM Premix 4.5 gm In 200 / 200 100 / 100 100 / 100 100 ml @ 200 mls/hr IV.SIG Q6H [facility] Rx#:[id number] Tube Feeding 567 / 567 Output: Stool 1525 / 1525 Urine Amount (Catheter) 1425 / 1425 700 / 700 Indwelling Urethral Catheter 1425 / 1425 700 / 700 Stool Amount (Stoma) 600 / 600 Right Lower Abdomen 600 / 600 Other: Date of Last Bowel Movement 01/03/18 01/03/18 01/04/18 # Bowel Movements 0 Narrative: Awake and alert; voice weak Abd: midline incision with lennie; minimal serous drainage Ileostomy with liquid stool G tube with TF - Urinary Catheter Management Indwelling Urethral Catheter Cath placed during this visit: yes Reason for continuing: Hourly intake/output Insertion date: 12/24/17 Insertion time: 20:15 Results - Labs 01/02/18 05:30 01/02/18 22:00 Laboratory Results - last 24 hr 01/03/18 01/03/18 01/03/18 15:24 15:25 15:58 POC Glucose 31 L* 60 L 109 01/03/18 01/04/18 01/04/18 23:53 00:33 09:54 POC Glucose 62 L 105 78 - Imaging Imaging: ITS Impressions Abdomen X-Ray 12/24/17 00:00 CONCLUSION: Dilated small bowel with collapse of the colon most characteristic of small bowel obstructive process. Calcific atherosclerotic vascular disease Abdomen/Pelvis CT 12/24/17 00:00 CONCLUSION: 1. Small to moderate amount of free air of concern for ruptured viscus. 2. Abnormal bowel gas pattern with dilated loops of small bowel and air-fluid levels most characteristic of a small bowel obstruction. 3. Moderate diverticulosis present. These findings were called to Dr. Aldrich at 1839 hours. Chest X-Ray 01/02/18 06:00 CONCLUSION: No significant change. Assessment and Plan - Assessment (1) Gastrostomy in place Code(s): Z93.1 - Gastrostomy status Status: Acute (2) Ileostomy in place Code(s): Z93.2 - Ileostomy status Status: Acute (3) History of esophageal reflux Code(s): Z87.19 - Personal history of other diseases of the digestive system Status: Chronic (4) Free intraperitoneal air Code(s): K66.8 - Other specified disorders of peritoneum Status: Resolved - Plan 87 year old female s/p lap converted to ex lap; resection of nonviable small bowel; ileostomy; POD2 ex lap; placement of G tube; closure of abdomen -CCM following--- now extubated -Tolerating TF -Hypertensive now -Palliative Care following -PT -Continue ileostomy care and teaching -passed swallow eval, advance diet, +BM, +ostomy output Discussed with Dr. Pollard Made the tube feedings during the day if her appetite is poor - Attending Attestation NOTE FOR SURGICAL ATTENDING, DR. ROYA ALDRICH I attest that I had a [id number] encounter with the patient on the same day, and personally performed and documented my assessment and findings in the medical record. The following services were provided during this hospital visit: Chart data review, vital sign assessments/reviewing monitor data Review of consultations notes if present. Medication orders/review and/or management Ordering and/or reviewing lab tests Ordering and/or interpreting/reviewing x-rays and/or diagnostic studies Care of the patient and discussion of the patient with the care team Documentation time To help prompt me to consider important information that might be impacting today's encounter and assessment, Information from prior notes written by myself or my colleagues may have been "brought forward/copy and pasted" into today's note.
[2018-01-05] MEDS: Piperacil/Tazo 4.5 GM Premix 4.5 GM/100 ML BAG IV.SIG SCH ×3 (00:33→12:04)
[2018-01-05] MEDS: Dextrose 50% in Water 50 ML Vial IV.PUSH PRN ×3 (00:34→16:05)
[2018-01-05] MEDS: Oral Hygiene Kit OROPHARYNG SCH ×4 (00:34→15:37)
[2018-01-05 07:10] LABS: Baso % (Auto) 0.8 % (0.0-2.0); Eos # (Auto) 0.1 th/mm3 (0.0-0.4); Eos % (Auto) 1.3 % (0.0-4.0); Hematocrit 28.8 % (35.0-46.0); Hemoglobin 10.5 gm/dL (11.6-15.3); Lymph # (Auto) 0.9 th/mm3 (1.0-4.8); Lymph % (Auto) 16.2 % (9.0-44.0); Mean Corpuscular Hemoglobin 36.5 pg (27.0-34.0); Mean Corpuscular Volume 99.6 fL (80.0-100.0); Mean Platelet Volume 10.6 fL (7.0-11.0); Mono # (Auto) 0.3 th/mm3 (0.0-0.9); Mono % (Auto) 6.1 % (0.0-8.0); Neut # (Auto) 4.3 th/mm3 (1.8-7.7); Neut % (Auto) 75.6 % (16.0-70.0); Platelet Count 198 th/mm3 (150-450); Red Blood Count 2.89 mil/mm3 (4.00-5.30); Red Cell Distribution Width 15.9 % (11.6-17.2); White Blood Count 5.6 th/mm3 (4.0-11.0)
[2018-01-05 07:15] LABS: Mean Corpuscular HGB Conc 36.7 % (32.0-36.0)
[2018-01-05 07:35] LABS: Albumin 1.6 g/dL (3.4-5.0); Calcium 7.3 mg/dL (8.5-10.1); Carbon Dioxide 27.3 meq/L (21.0-32.0); Potassium 3.5 meq/L (3.5-5.1); Total Protein 5.7 g/dL (6.4-8.2)
[2018-01-05] MEDS: Potassium Chloride 25 MEQ Effervescent Tablet NG/OG SCH ×2 (08:41→20:13)
[2018-01-05] MEDS: Atenolol 50 MG Tablet PO SCH ×2 (08:41→20:13)
[2018-01-05] MEDS: Enoxaparin Inj 40 MG/0.4 ML Syringe SQ SCH (08:42)
[2018-01-05] MEDS: Chlorhexidine 0.12% Oral Kit 15 ML UDC OROPHARYNG SCH ×2 (08:43→20:14)
--- NOTE | 2018-01-05 10:49 | P.PNGS ---
Subjective Interval history: DAILY PROGRESS NOTE FOR SURGICAL ATTENDING, DR. ROYA ALDRICH Resting in bed Soft spoken No complaints Physical Exam Vital signs: Vital Signs 01/04/18 12:00 01/04/18 15:15 01/04/18 16:00 Temperature 98.2 F 98.3 F Pulse Rate 96 H 112 H 104 H Respiratory Rate 24 22 16 Blood Pressure 130/61 115/61 Pulse Oximetry 96 94 L 01/04/18 20:00 01/04/18 20:22 01/05/18 00:00 Temperature 97.8 F 97.9 F Pulse Rate 100 H 95 H 86 Respiratory Rate 18 18 15 Blood Pressure 149/75 H 144/70 H Pulse Oximetry 97 95 100 01/05/18 03:41 01/05/18 04:00 Temperature 98.3 F Pulse Rate 81 90 Respiratory Rate 18 18 Blood Pressure 145/67 H Pulse Oximetry 100 Intake & Output 01/04/18 01/05/18 01/05/18 18:59 06:59 18:59 Intake Total 2500 / 2500 1220 / 1220 100 / 100 Output Total 1150 / 1150 970 / 970 Balance 1350 / 1350 250 / 250 100 / 100 Weight 68.4 kg Intake: IV 2300 / 2300 1100 / 1100 100 / 100 D10W Inj 1,000 ML @ 30 mls/hr 1000 / 1000 IV.CONT .Q24H [facility] Rx#:[id number] D5W/LR Inj 1,000 ML @ 50 mls/hr 1000 / 1000 IV.CONT .Q20H [facility] Rx#:[id number] Zosyn 4.5 GM Premix 4.5 gm In 300 / 300 100 / 100 100 / 100 100 ml @ 200 mls/hr IV.SIG Q6H [facility] Rx#:[id number] NS Inj 1,000 ML @ Wide Open IV. 1000 / 1000 SIG [facility] Rx#:[id number] Oral 200 / 200 120 / 120 Output: Urine Amount (Catheter) 450 / 450 550 / 550 Indwelling Urethral Catheter 450 / 450 550 / 550 Stool Amount (Stoma) 700 / 700 420 / 420 Right Lower Abdomen 700 / 700 420 / 420 Other: Date of Last Bowel Movement 01/04/18 01/04/18 # Bowel Movements 0 Narrative: Alert; awakening Abd: midline incision with lennie; G tube in place; ileostomy in place with pink stoma; liquid stool in bag - Urinary Catheter Management Indwelling Urethral Catheter Cath placed during this visit: yes Reason for continuing: Hourly intake/output Insertion date: 12/24/17 Insertion time: 20:15 Results - Labs 01/05/18 06:08 01/05/18 06:08 Laboratory Results - last 24 hr 01/04/18 01/04/18 01/05/18 15:17 18:27 00:30 WBC RBC Hgb Hct MCV MCH MCHC RDW Plt Count MPV Prelim Diff (Auto) Neut % (Auto) Lymph % (Auto) Child[place] % (Auto) Eos % (Auto) Baso % (Auto) Neut # (Auto) Lymph # (Auto) Child[place] # (Auto) Eos # (Auto) Baso # (Auto) WBC Differential Diff Scan Differential Comment Sodium Potassium Chloride Carbon Dioxide Anion Gap BUN Creatinine Estimated GFR POC Glucose 75 90 49 L* Random Glucose Calcium Prot Corrected Calcium Total Bilirubin AST ALT Alkaline Phosphatase Total Protein Albumin 01/05/18 01/05/18 01/05/18 01:11 05:56 06:08 WBC 5.6 RBC 2.89 L Hgb 10.5 L Hct 28.8 L MCV 99.6 MCH 36.5 H MCHC 36.7 H RDW 15.9 Plt Count 198 D MPV 10.6 Prelim Diff (Auto) Slide review pending Neut % (Auto) 75.6 H Lymph % (Auto) 16.2 Childress % (Auto) 6.1 Eos % (Auto) 1.3 Baso % (Auto) 0.8 Neut # (Auto) 4.3 Lymph # (Auto) 0.9 L Childress # (Auto) 0.3 Eos # (Auto) 0.1 Baso # (Auto) 0.0 WBC Differential . Diff Scan Auto diff confirmed Differential Comment . Sodium Potassium Chloride Carbon Dioxide Anion Gap BUN Creatinine Estimated GFR POC Glucose 145 H 84 Random Glucose Calcium Prot Corrected Calcium Total Bilirubin AST ALT Alkaline Phosphatase Total Protein Albumin 01/05/18 06:08 WBC RBC Hgb Hct MCV MCH MCHC RDW Plt Count MPV Prelim Diff (Auto) Neut % (Auto) Lymph % (Auto) Childress % (Auto) Eos % (Auto) Baso % (Auto) Neut # (Auto) Lymph # (Auto) Childress # (Auto) Eos # (Auto) Baso # (Auto) WBC Differential Diff Scan Differential Comment Sodium 142 Potassium 3.5 Chloride 102 Carbon Dioxide 27.3 Anion Gap 13 BUN 16 Creatinine 1.35 H Estimated GFR 45 L POC Glucose Random Glucose 76 Calcium 7.3 L* Prot Corrected Calcium 8.1 L Total Bilirubin 0.7 AST 33 ALT 22 Alkaline Phosphatase 138 H Total Protein 5.7 L D Albumin 1.6 L - Imaging Imaging: ITS Impressions Abdomen X-Ray 12/24/17 00:00 CONCLUSION: Dilated small bowel with collapse of the colon most characteristic of small bowel obstructive process. Calcific atherosclerotic vascular disease Abdomen/Pelvis CT 12/24/17 00:00 CONCLUSION: 1. Small to moderate amount of free air of concern for ruptured viscus. 2. Abnormal bowel gas pattern with dilated loops of small bowel and air-fluid levels most characteristic of a small bowel obstruction. 3. Moderate diverticulosis present. These findings were called to Dr. Aldrich at 1839 hours. Chest X-Ray 01/02/18 06:00 CONCLUSION: No significant change. Assessment and Plan - Assessment (1) Gastrostomy in place Code(s): Z93.1 - Gastrostomy status Status: Acute (2) Ileostomy in place Code(s): Z93.2 - Ileostomy status Status: Acute (3) History of esophageal reflux Code(s): Z87.19 - Personal history of other diseases of the digestive system Status: Chronic - Plan 87 year old female s/p lap converted to ex lap; resection of nonviable small bowel; ileostomy. -CCM following---stable on NC -Tolerating regular diet--- will start calorie count -May need supplemental feedings via G tube -Palliative Care following -PT -Continue ileostomy care and teaching - Attending Attestation NOTE FOR SURGICAL ATTENDING, DR. ROYA ALDRICH We will need tube feedings day and night Overall doing very well from her recovery I agree with above assessment and plan. The exam, history, and the medical decision-making described in the above note were completed with the assistance of the mid-level provider. I reviewed and agree with the findings presented. I attest that I had a [id number] encounter with the patient on the same day, and personally performed and documented my assessment and findings in the medical record. The following services were provided during this hospital visit: Chart data review, vital sign assessments/reviewing monitor data Review of consultations notes if present. Medication orders/review and/or management Ordering and/or reviewing lab tests Ordering and/or interpreting/reviewing x-rays and/or diagnostic studies Care of the patient and discussion of the patient with the care team Documentation time To help prompt me to consider important information that might be impacting today's encounter and assessment, Information from prior notes written by myself or my colleagues may have been "brought forward/copy and pasted" into today's note.
[2018-01-05] MEDS: Dextrose 10% in Water Inj 1,000 ML IV.CONT SCH (11:54)
[2018-01-05] MEDS: Dextrose 10% in Water Inj 500 ML IV.SIG SCH (12:10)
[2018-01-05] MEDS ORDERED: Potassium Chloride 25 MEQ Effervescent Tablet G-TUBE ONE (14:15)
[2018-01-05] MEDS ORDERED: Potassium Bicarbonate 25 MEQ Effervescent Tablet G-TUBE ONE (14:15)
--- NOTE | 2018-01-05 15:05 | P.DIET ---
Nutritional Evaluation Type of nutrition evaluation: follow-up Nutrition consult regarding: Tube Feeding Nutrition screening: [facility] [place] (TPN/PPN from 12/24) Screening comments: 01/05/18 [facility] [place] CALORIE COUNTING Subjective Subjective Comments: Pt. receiving medical care when visit attempted. Calorie Count started and RN Saritha informed. Objective - Diagnosis Generalized Weakness, Hypomagnesemia - Objective % IBW: 120 (IBW = 125#) Body Weight Used for Calculations: Actual (68.3 kg) Energy Needs - Lower Range (kCal/kg): 25 Energy Needs - Upper Range (kCal/kg): 30 Lower Limit kCal/kg (kCals): 1,708 Upper Limit kCal/kg (kCals): 2,049 Lower Limit Protein Factor (Grams per Kg): 1.0 Upper Limit Protein Factor (Grams per Kg): 1.5 Lower Protein Needs (Protein): 68 Upper Protein Needs (Protein): 102 Dietitian Reviewed in Medical Record: Current diet, Curent medications, Intake & Output, Labs, Medical history Diet Order: Pureed honey thickened liquids Oral Diet Intake Amount: Poor <50% Speech Therapy Recommendations: Yes (Pureed w/liquids thickened to honey consistency) Objective Comments: PMH Includes: GERD, high cholesterol, HTN Integumentary: right coccyx pressure injury; left coccyx pressure injury, posterior coccyx pressure injury 12/24 resection of small bowel with open packing 12/26 wound vac change, bowel resection, cecum resection, ileostomy, cholecystectomy 12/29 G-tube placement, closure of abdomen 01/02 Extubated Assessment Assessment: Pt continues at nutritional risk r/t clinical status. Extubated 01/[address] [facility] [place] for Calorie Count to determine whether pt requires supplemental TF'ing. Calorie Count 01/05 through 01/07 w/Nutrition Recs to follow 01/08. Send Ensure TID(= 250 kcal and 9g protein per serving). Send Ensure Pudding TID (= 170 kcal and 4g protein per serving). Weight changes noted: adm wt = 58 kg, CBW = 68.4 kg. Recommendations: 1. Calorie Count 01/05 through 01/07 w/Nutrition Recs to follow 01/08 2. Send Ensure TID 3. Send Ensure Pudding TID Dietitian to Monitor: Lab values, Supplement acceptance, Intake & Output, Diet tolerance, Weight change, PO Intake, Wound/skin status, Swallow recommendations , Medical course
--- NOTE | 2018-01-05 16:41 | P.PN ---
Subjective Interval history: 01/05: The patient is in bed she appears sleepy however arousable and answers a few questions. Recognizes her son. Feels tired she was up in the chair today. Noted low blood pressure when she was up in bed. However blood pressure improved without fluids. Patient denies having any abdominal pain at this time. No fever or chills. No nausea or vomiting. No chest pain or shortness of breath. Physical Exam Vital signs: Vital Signs 01/04/18 20:00 01/04/18 20:22 01/05/18 00:00 Temperature 97.8 F 97.9 F Pulse Rate 100 H 95 H 86 Respiratory Rate 18 18 15 Blood Pressure 149/75 H 144/70 H Pulse Oximetry 97 95 100 01/05/18 03:41 01/05/18 04:00 01/05/18 08:00 Temperature 98.3 F 98.2 F Pulse Rate 81 90 98 H Respiratory Rate 18 18 22 Blood Pressure 145/67 H 168/76 H Pulse Oximetry 100 97 01/05/18 10:00 01/05/18 10:45 01/05/18 12:00 Temperature 97.9 F Pulse Rate 91 H 94 H 96 H Respiratory Rate 20 22 Blood Pressure 123/58 L Pulse Oximetry 99 94 L 01/05/18 14:00 Temperature Pulse Rate 82 Respiratory Rate Blood Pressure Pulse Oximetry Intake & Output 01/04/18 01/05/18 01/05/18 18:59 06:59 18:59 Intake Total 2500 / 2500 1220 / 1220 200 / 200 Output Total 1150 / 1150 970 / 970 Balance 1350 / 1350 250 / 250 200 / 200 Weight 68.4 kg Intake: IV 2300 / 2300 1100 / 1100 200 / 200 D10W Inj 1,000 ML @ 30 mls/hr 1000 / 1000 IV.CONT .Q24H JUANITA Rx#:[id number] D5W/LR Inj 1,000 ML @ 50 mls/hr 1000 / 1000 IV.CONT .Q20H JUANITA Rx#:[id number] Zosyn 4.5 GM Premix 4.5 gm In 300 / 300 100 / 100 200 / 200 100 ml @ 200 mls/hr IV.SIG Q6H JUANITA Rx#:[id number] NS Inj 1,000 ML @ Wide Open IV. 1000 / 1000 SIG BOLUS ONE Rx#:[id number] Oral 200 / 200 120 / 120 Output: Urine Amount (Catheter) 450 / 450 550 / 550 Indwelling Urethral Catheter 450 / 450 550 / 550 Stool Amount (Stoma) 700 / 700 420 / 420 Right Lower Abdomen 700 / 700 420 / 420 Other: Date of Last Bowel Movement 01/04/18 01/04/18 # Bowel Movements 0 Narrative: GENERAL: Weak, elderly female, on nasal cannula. No distress but still appears frail and chronically ill. SKIN: Well-perfused, but fragile skin HEENT: Nasal cannula. Airway patent, no obstructive noises. CARDIOVASCULAR: NSR regular rhythm. Generalized edema resolving. RESPIRATORY: Decreased breath sounds bibasilar. Good bilateral air entry. no wheezing. GASTROINTESTINAL: Abdomen closed, midline incision dressing intact. Ostomy with liquid output. G-tube in place, tolerating tube feeds MUSCULOSKELETAL: No obvious deformities. No clubbing or cyanosis. Limbs well perfused. NEUROLOGICAL: Lying in bed. Weak, protecting airway. Able to state a few words. Follows commands 4 limbs. - Urinary Catheter Management Indwelling Urethral Catheter Cath placed during this visit: yes Reason for continuing: Hourly intake/output Insertion date: 12/24/17 Insertion time: 20:15 Results - Labs CBC & Chem 7: 01/05/18 06:08 01/05/18 06:08 Laboratory Results - last 24 hr 01/04/18 01/05/18 01/05/18 18:27 00:30 01:11 WBC RBC Hgb Hct MCV MCH MCHC RDW Plt Count MPV Prelim Diff (Auto) Neut % (Auto) Lymph % (Auto) [place] % (Auto) Eos % (Auto) Baso % (Auto) Neut # (Auto) Lymph # (Auto) [place] # (Auto) Eos # (Auto) Baso # (Auto) WBC Differential Diff Scan Differential Comment Sodium Potassium Chloride Carbon Dioxide Anion Gap BUN Creatinine Estimated GFR POC Glucose 90 49 L* 145 H Random Glucose Calcium Prot Corrected Calcium Total Bilirubin AST ALT Alkaline Phosphatase Total Protein Albumin 01/05/18 01/05/18 01/05/18 05:56 06:08 06:08 WBC 5.6 RBC 2.89 L Hgb 10.5 L Hct 28.8 L MCV 99.6 MCH 36.5 H MCHC 36.7 H RDW 15.9 Plt Count 198 D MPV 10.6 Prelim Diff (Auto) Slide review pending Neut % (Auto) 75.6 H Lymph % (Auto) 16.2 [place] % (Auto) 6.1 Eos % (Auto) 1.3 Baso % (Auto) 0.8 Neut # (Auto) 4.3 Lymph # (Auto) 0.9 L [place] # (Auto) 0.3 Eos # (Auto) 0.1 Baso # (Auto) 0.0 WBC Differential . Diff Scan Auto diff confirmed Differential Comment . Sodium 142 Potassium 3.5 Chloride 102 Carbon Dioxide 27.3 Anion Gap 13 BUN 16 Creatinine 1.35 H Estimated GFR 45 L POC Glucose 84 Random Glucose 76 Calcium 7.3 L* Prot Corrected Calcium 8.1 L Total Bilirubin 0.7 AST 33 ALT 22 Alkaline Phosphatase 138 H Total Protein 5.7 L D Albumin 1.6 L 01/05/18 01/05/18 01/05/18 15:22 15:23 16:00 WBC RBC Hgb Hct MCV MCH MCHC RDW Plt Count MPV Prelim Diff (Auto) Neut % (Auto) Lymph % (Auto) [place] % (Auto) Eos % (Auto) Baso % (Auto) Neut # (Auto) Lymph # (Auto) [place] # (Auto) Eos # (Auto) Baso # (Auto) WBC Differential Diff Scan Differential Comment Sodium Potassium Chloride Carbon Dioxide Anion Gap BUN Creatinine Estimated GFR POC Glucose 38 L* 47 L* 61 L Random Glucose Calcium Prot Corrected Calcium Total Bilirubin AST ALT Alkaline Phosphatase Total Protein Albumin 01/05/18 01/05/18 01/05/18 16:00 16:22 16:24 WBC RBC Hgb Hct MCV MCH MCHC RDW Plt Count MPV Prelim Diff (Auto) Neut % (Auto) Lymph % (Auto) [place] % (Auto) Eos % (Auto) Baso % (Auto) Neut # (Auto) Lymph # (Auto) [place] # (Auto) Eos # (Auto) Baso # (Auto) WBC Differential Diff Scan Differential Comment Sodium Potassium Chloride Carbon Dioxide Anion Gap BUN Creatinine Estimated GFR POC Glucose 63 L 217 H 162 H Random Glucose Calcium Prot Corrected Calcium Total Bilirubin AST ALT Alkaline Phosphatase Total Protein Albumin Assessment and Plan - Plan 87yF with perforated small bowel now s/p emergent exploratory laparotomy, small bowel resection, left in discontinuity with open abdomen. iv antibiotics, vasopressors, iv fluid resuscitation. Critically ill. Went to OR today 2017 for abdomen closure. Started to take p.o. Remains chronically ill but stable following surgery for spontaneous perforation of the bowel and peritonitis. She returned to the OR on 12/26 for ileostomy construction, returned to OR again 12/29/2017 for abdominal wound closure and G tube placement. Septic shock is resolved but remains grossly fluid overloaded. Continue aggressive diuresis. Restarting home meds slowly, blood pressure control acceptable. Neurologic: Acute metabolic encephalopathy-improving Minimize sedation minimize sedation Use as needed Tylenol and morphine for pain Respiratory: Acute hypoxic and hypercarbic respiratory failure-improving Bilateral pleural effusion Extubated yesterday 01/01/2018 tolerating well Head of bed elevated, Nebs Wean FiO2 for goal SPO2 greater than 90% Diuresis as below Diamox 1 today. Cardiovascular: Septic shock resolved Now hypotensive Paroxysmal A. fib with RVR-resolved Fluid overload IV Lasix 20 mg q12, (weight up by 25 KG, now achieving negative balance) Cannot anticoagulate for A. fib due to recent surgery, discontinued amiodarone IV digoxin 0.25 mg 1 given 12/29/2017 Keep magnesium more than 2.2, keep potassium more than 4 D5 LR at 50 mL/h (this is to prevent hypoglycemia) Tenormin restarted yesterday, restart losartan and triamterene/ hydrochlorothiazide today IV labetalol 20 mg every 2 hours as needed for SBP more than 160 Renal: Acute kidney injury-resolved Likely secondary to septic shock and volume depletion in the setting of small bowel perforation Continue Hankins, Frequent urine checks, Daily BMP Maintenance fluid resuscitation currently on D5/LR to prevent hypoglycemia. IV Lasix as above - Strict I/Os -Successful diuresis over past 5 days. FEN/GI: Small bowel perforation Intra-abdominal sepsis Severe acute protein calorie malnutrition Hypocalcemia Hypomagnesemia s/p abdominal closure 12/30/17. Ileostomy pink, new G-tube in place. Tube feeds with Jevity 50 ml per hour per general surgery ICU electrolyte protocol Antibiotics as described below Dr. Aldrich following Heme/ID: Anemia secondary to acute blood loss Septic shock-resolving Intra-abdominal sepsis Status post 1 unit PRBCs in the OR. Additional 1 unit PRBC 12/30 Daily CBC Continue Zosyn IV Follow-up cultures-negative to date Endocrine: Hypoglycemia Hyperglycemia of critical illness Hypomagnesemia Hypokalemia -Continue D5 LR at 50 mL/h, check cortisol level -Aggressive electrolyte replacement -Prone to hypoglycemia if sugar not added to maintenance IV fluids. Prophylaxis: GI Prophylaxis PPI IV DVT Prophylaxis -SCDs Subcu heparin-hold immediate post op period due to anemia. Star today 01/02 with Lovenox 40 mg subcu daily Lines: 12/24 radial arterial line DC today 12/24 left subclavian triple-lumen catheter DC 01/02. 12/24 [place] Discharge plan Pending improvement and clearance by general surgery Patient noted low blood pressure where it went up in the chair however improved without fluids. Encouraged PT With persistent hypoglycemia due to low intake monitor blood sugar, discontinue D10 when ending eating better and restart feedings with PEG tube. Undergoing calorie counting
[2018-01-05] MEDS: Piperacil/Tazo 3.375 GM Premix 50 ML IV.SIG SCH (17:52)
[2018-01-06] MEDS: Dextrose 50% in Water 50 ML Vial IV.PUSH PRN ×3 (00:13→21:57)
[2018-01-06] MEDS: Piperacil/Tazo 3.375 GM Premix 50 ML IV.SIG SCH ×4 (00:13→18:06)
[2018-01-06] MEDS: Oral Hygiene Kit OROPHARYNG SCH ×4 (04:00→18:06)
[2018-01-06] MEDS: Dextrose 10% in Water Inj 500 ML IV.SIG SCH ×2 (05:57→20:59)
[2018-01-06 07:04] LABS: Baso # (Auto) 0.1 th/mm3 (0.0-0.2); Baso % (Auto) 1.1 % (0.0-2.0); Eos # (Auto) 0.1 th/mm3 (0.0-0.4); Eos % (Auto) 2.4 % (0.0-4.0); Hematocrit 28.2 % (35.0-46.0); Hemoglobin 9.8 gm/dL (11.6-15.3); Mean Corpuscular HGB Conc 34.7 % (32.0-36.0); Mean Corpuscular Hemoglobin 33.1 pg (27.0-34.0); Mean Corpuscular Volume 95.4 fL (80.0-100.0); Mean Platelet Volume 10.6 fL (7.0-11.0); Mono # (Auto) 0.4 th/mm3 (0.0-0.9); Mono % (Auto) 8.2 % (0.0-8.0); Neut # (Auto) 3.2 th/mm3 (1.8-7.7); Neut % (Auto) 67.3 % (16.0-70.0); Platelet Count 183 th/mm3 (150-450); Red Blood Count 2.95 mil/mm3 (4.00-5.30); Red Cell Distribution Width 15.8 % (11.6-17.2); White Blood Count 4.8 th/mm3 (4.0-11.0)
[2018-01-06 07:24] LABS: Calcium 7.5 mg/dL (8.5-10.1); Carbon Dioxide 30.2 meq/L (21.0-32.0); Magnesium 1.3 mg/dL (1.5-2.5); Phosphorus 3.2 mg/dL (2.5-4.9)
[2018-01-06 07:41] LABS: Potassium 2.9 meq/L (3.5-5.1)
[2018-01-06 08:19] LABS: Lymphocytes 16 % (9-44); Monocytes 10 % (0-8); Platelet Estimate Normal (Normal)
[2018-01-06] MEDS: Chlorhexidine 0.12% Oral Kit 15 ML UDC OROPHARYNG SCH ×2 (09:22→20:48)
[2018-01-06] MEDS: Potassium Chloride 25 MEQ Effervescent Tablet NG/OG SCH ×2 (09:23→20:47)
[2018-01-06] MEDS: Potassium Chlor 20 mEq Premix 20 MEQ/100 ML PIGGYBACK IV.SIG PRN ×4 (09:23→16:48)
[2018-01-06] MEDS: Atenolol 50 MG Tablet PO SCH ×3 (09:23→20:47)
[2018-01-06] MEDS: Enoxaparin Inj 40 MG/0.4 ML Syringe SQ SCH (09:23)
--- NOTE | 2018-01-06 10:34 | P.PN ---
Subjective Interval history: She is up in the bed appears more awake and alert and appers in nad BS reading however is 29, will check bmp Patient is more awake and alert, answers questions Physical Exam Vital signs: Vital Signs 01/05/18 10:45 01/05/18 12:00 01/05/18 14:00 Temperature 97.5 F L Pulse Rate 94 H 96 H 82 Respiratory Rate 20 22 Blood Pressure 123/58 L Pulse Oximetry 99 94 L 01/05/18 16:00 01/05/18 18:00 01/05/18 20:00 Temperature 97.9 F 97.5 F L Pulse Rate 84 83 87 Respiratory Rate 18 16 Blood Pressure 129/64 108/53 L Pulse Oximetry 100 98 01/05/18 22:24 01/06/18 00:00 01/06/18 04:00 Temperature 97.8 F 97.7 F Pulse Rate 80 77 Respiratory Rate 18 18 Blood Pressure 118/60 102/54 L Pulse Oximetry 98 98 98 01/06/18 06:00 01/06/18 08:00 Temperature Pulse Rate 79 Respiratory Rate Blood Pressure Pulse Oximetry 97 Intake & Output 01/05/18 01/06/18 01/06/18 18:59 06:59 18:59 Intake Total 450 / 450 1680 / 1680 50 / 50 Output Total 1850 / 1850 1100 / 1100 Balance -1400 / -1400 580 / 580 50 / 50 Weight 65 kg Intake: IV 250 / 250 550 / 550 50 / 50 D10W Inj 500 ML @ 30 mls/hr IV. 500 / 500 SIG .[id number] JUANITA Rx#:[id number] Zosyn 3.375 GM Premix 50 ML @ 50 / 50 50 / 50 50 / 50 100 mls/hr IV.SIG Q6H JUANITA Rx#: [id number] Zosyn 4.5 GM Premix 4.5 gm In 200 / 200 100 ml @ 200 mls/hr IV.SIG Q6H JUANITA Rx#:[id number] Oral 200 / 200 0 / 0 Tube Feeding 930 / 930 Tube Irrigant 200 / 200 Output: Urine Amount (Catheter) 850 / 850 250 / 250 Indwelling Urethral Catheter 850 / 850 250 / 250 Stool Amount (Stoma) 1000 / 1000 850 / 850 Right Lower Abdomen 1000 / 1000 850 / 850 Other: Date of Last Bowel Movement 01/05/18 # Incontinent Bowel Movements 1 Narrative: GENERAL: Weak, elderly female, on nasal cannula. Appears frail and chronically ill. SKIN: Well-perfused, but fragile skin HEENT: Nasal cannula. Airway patent, no obstructive noises. CARDIOVASCULAR: NSR regular rhythm. Generalized edema resolving. RESPIRATORY: Decreased breath sounds bibasilar. Good bilateral air entry. no wheezing. GASTROINTESTINAL: Abdomen closed, midline incision dressing intact. Ostomy with liquid output. G-tube in place, tolerating tube feeds MUSCULOSKELETAL: No obvious deformities. No clubbing or cyanosis. Limbs well perfused. NEUROLOGICAL: Lying in bed. Weak, protecting airway. Able to state a few words. Follows commands 4 limbs. - Urinary Catheter Management Indwelling Urethral Catheter Cath placed during this visit: yes Reason for continuing: Hourly intake/output Insertion date: 12/24/17 Insertion time: 20:15 Results - Labs CBC & Chem 7: 01/06/18 06:14 01/06/18 06:14 Laboratory Results - last 24 hr 01/05/18 01/05/18 01/05/18 15:22 15:23 16:00 WBC RBC Hgb Hct MCV MCH MCHC RDW Plt Count MPV Prelim Diff (Auto) Neut % (Auto) Lymph % (Auto) [place] % (Auto) Eos % (Auto) Baso % (Auto) Neut # (Auto) Lymph # (Auto) [place] # (Auto) Eos # (Auto) Baso # (Auto) WBC Differential Seg Neuts % (Manual) Band Neuts % (Manual) Lymphocytes % (Manual) Monocytes % (Manual) Basophils % (Manual) Abs Neuts (Manual) Differential Comment Platelet Estimate Platelet Morphology Sodium Potassium Chloride Carbon Dioxide Anion Gap BUN Creatinine Estimated GFR POC Glucose 38 L* 47 L* 61 L Random Glucose Calcium Phosphorus Magnesium 01/05/18 01/05/18 01/05/18 16:00 16:22 16:24 WBC RBC Hgb Hct MCV MCH MCHC RDW Plt Count MPV Prelim Diff (Auto) Neut % (Auto) Lymph % (Auto) [place] % (Auto) Eos % (Auto) Baso % (Auto) Neut # (Auto) Lymph # (Auto) [place] # (Auto) Eos # (Auto) Baso # (Auto) WBC Differential Seg Neuts % (Manual) Band Neuts % (Manual) Lymphocytes % (Manual) Monocytes % (Manual) Basophils % (Manual) Abs Neuts (Manual) Differential Comment Platelet Estimate Platelet Morphology Sodium Potassium Chloride Carbon Dioxide Anion Gap BUN Creatinine Estimated GFR POC Glucose 63 L 217 H 162 H Random Glucose Calcium Phosphorus Magnesium 01/05/18 01/06/18 01/06/18 18:31 00:09 00:45 WBC RBC Hgb Hct MCV MCH MCHC RDW Plt Count MPV Prelim Diff (Auto) Neut % (Auto) Lymph % (Auto) [place] % (Auto) Eos % (Auto) Baso % (Auto) Neut # (Auto) Lymph # (Auto) [place] # (Auto) Eos # (Auto) Baso # (Auto) WBC Differential Seg Neuts % (Manual) Band Neuts % (Manual) Lymphocytes % (Manual) Monocytes % (Manual) Basophils % (Manual) Abs Neuts (Manual) Differential Comment Platelet Estimate Platelet Morphology Sodium Potassium Chloride Carbon Dioxide Anion Gap BUN Creatinine Estimated GFR POC Glucose 127 H 58 L 142 H Random Glucose Calcium Phosphorus Magnesium 01/06/18 01/06/18 01/06/18 05:32 06:14 06:14 WBC 4.8 RBC 2.95 L Hgb 9.8 L Hct 28.2 L MCV 95.4 D MCH 33.1 MCHC 34.7 RDW 15.8 Plt Count 183 MPV 10.6 Prelim Diff (Auto) Slide review pending Neut % (Auto) 67.3 Lymph % (Auto) 21.0 [place] % (Auto) 8.2 H Eos % (Auto) 2.4 Baso % (Auto) 1.1 Neut # (Auto) 3.2 Lymph # (Auto) 1.0 [place] # (Auto) 0.4 Eos # (Auto) 0.1 Baso # (Auto) 0.1 WBC Differential Manual diff final Seg Neuts % (Manual) 50 Band Neuts % (Manual) 21 H Lymphocytes % (Manual) 16 Monocytes % (Manual) 10 H Basophils % (Manual) 3 H Abs Neuts (Manual) 3.4 Differential Comment . Platelet Estimate Normal Platelet Morphology Enlarged H Sodium 138 Potassium 2.9 L* Chloride 98 Carbon Dioxide 30.2 Anion Gap 10 BUN 19 H Creatinine 1.35 H Estimated GFR 45 L POC Glucose 105 Random Glucose 93 Calcium 7.5 L Phosphorus 3.2 Magnesium 1.3 L Assessment and Plan - Plan 87yF with perforated small bowel now s/p emergent exploratory laparotomy, small bowel resection, left in discontinuity with open abdomen. iv antibiotics, vasopressors, iv fluid resuscitation. Critically ill. Went to OR today 2017 for abdomen closure. Started to take p.o. Remains chronically ill but stable following surgery for spontaneous perforation of the bowel and peritonitis. She returned to the OR on 12/26 for ileostomy construction, returned to OR again 12/29/2017 for abdominal wound closure and G tube placement. Septic shock is resolved but remains grossly fluid overloaded. Continue aggressive diuresis. Restarting home meds slowly, blood pressure control acceptable. Neurologic: Acute metabolic encephalopathy-improving Minimize sedation minimize sedation Use as needed Tylenol and morphine for pain Respiratory: Acute hypoxic and hypercarbic respiratory failure-improving Bilateral pleural effusion Extubated yesterday 01/01/2018 tolerating well Head of bed elevated, Nebs Wean FiO2 for goal SPO2 greater than 90% Diuresis as below Diamox 1 today. Cardiovascular: Septic shock resolved Now hypotensive Paroxysmal A. fib with RVR-resolved Fluid overload IV Lasix 20 mg q12, (weight up by 25 KG, now achieving negative balance) Cannot anticoagulate for A. fib due to recent surgery, discontinued amiodarone IV digoxin 0.25 mg 1 given 12/29/2017 Keep magnesium more than 2.2, keep potassium more than 4 D5 LR at 50 mL/h (this is to prevent hypoglycemia) Tenormin restarted yesterday, restart losartan and triamterene/ hydrochlorothiazide today IV labetalol 20 mg every 2 hours as needed for SBP more than 160 Renal: Acute kidney injury-resolved Likely secondary to septic shock and volume depletion in the setting of small bowel perforation Continue Hankins, Frequent urine checks, Daily BMP Maintenance fluid resuscitation currently on D5/LR to prevent hypoglycemia. IV Lasix as above - Strict I/Os -Successful diuresis over past 5 days. FEN/GI: Small bowel perforation Intra-abdominal sepsis Severe acute protein calorie malnutrition Hypocalcemia Hypomagnesemia s/p abdominal closure 12/30/17. Ileostomy pink, new G-tube in place. Tube feeds with Jevity 50 ml per hour per general surgery ICU electrolyte protocol Antibiotics as described below Dr. Aldrich following Heme/ID: Anemia secondary to acute blood loss Septic shock-resolving Intra-abdominal sepsis Status post 1 unit PRBCs in the OR. Additional 1 unit PRBC 12/30 Daily CBC Continue Zosyn IV Follow-up cultures-negative to date Endocrine: Hypoglycemia Hyperglycemia of critical illness Hypomagnesemia Hypokalemia, persistent -Continue D5 LR at 50 mL/h, check cortisol level -Aggressive electrolyte replacement -Prone to hypoglycemia if sugar not added to maintenance IV fluids. Prophylaxis: GI Prophylaxis PPI IV DVT Prophylaxis -SCDs Subcu heparin-hold immediate post op period due to anemia. Star today 01/02 with Lovenox 40 mg subcu daily Lines: 12/24 radial arterial line DC today 12/24 left subclavian triple-lumen catheter DC 01/02. 12/24 [place] Discharge plan Pending improvement and clearance by general surgery Patient noted low blood pressure where it went up in the chair however improved without fluids. Encouraged PT With persistent hypoglycemia due to low intake monitor blood sugar, discontinue D10 when ending eating better and restart feedings with PEG tube. Undergoing calorie counting
--- NOTE | 2018-01-06 11:00 | P.PNGS ---
Subjective Interval history: DAILY PROGRESS NOTE FOR SURGICAL ATTENDING, DR. ROYA ALDRICH Resting in bed Son Don at bedside She states her lips feels better today ---- they are not as chapped as yesterday Wants to try to eat but not really hungry Physical Exam Vital signs: Vital Signs 01/05/18 12:00 01/05/18 14:00 01/05/18 16:00 Temperature 97.5 F L 97.9 F Pulse Rate 96 H 82 84 Respiratory Rate 22 18 Blood Pressure 123/58 L 129/64 Pulse Oximetry 94 L 100 01/05/18 18:00 01/05/18 20:00 01/05/18 22:24 Temperature 97.5 F L Pulse Rate 83 87 Respiratory Rate 16 Blood Pressure 108/53 L Pulse Oximetry 98 98 01/06/18 00:00 01/06/18 04:00 01/06/18 06:00 Temperature 97.8 F 97.7 F Pulse Rate 80 77 79 Respiratory Rate 18 18 Blood Pressure 118/60 102/54 L Pulse Oximetry 98 98 01/06/18 08:00 Temperature Pulse Rate Respiratory Rate Blood Pressure Pulse Oximetry 97 Intake & Output 09/01/06/18 01/06/18 18:59 06:59 18:59 Intake Total 450 / 450 1680 / 1680 50 / 50 Output Total 1850 / 1850 1100 / 1100 Balance -1400 / -1400 580 / 580 50 / 50 Weight 65 kg Intake: IV 250 / 250 550 / 550 50 / 50 D10W Inj 500 ML @ 30 mls/hr IV. 500 / 500 SIG .[id number] JUANITA Rx#:[id number] Zosyn 3.375 GM Premix 50 ML @ 50 / 50 50 / 50 50 / 50 100 mls/hr IV.SIG Q6H JUANITA Rx#: [id number] Zosyn 4.5 GM Premix 4.5 gm In 200 / 200 100 ml @ 200 mls/hr IV.SIG Q6H JUANITA Rx#:[id number] Oral 200 / 200 0 / 0 Tube Feeding 930 / 930 Tube Irrigant 200 / 200 Output: Urine Amount (Catheter) 850 / 850 250 / 250 Indwelling Urethral Catheter 850 / 850 250 / 250 Stool Amount (Stoma) 1000 / 1000 850 / 850 Right Lower Abdomen 1000 / 1000 850 / 850 Other: Date of Last Bowel Movement 01/05/18 # Incontinent Bowel Movements 1 Narrative: Alert and awake Abd: midline incision c/d/i; G tube in place; ileostomy in place with liquid stool - Urinary Catheter Management Indwelling Urethral Catheter Cath placed during this visit: yes Reason for continuing: Hourly intake/output Insertion date: 12/24/17 Insertion time: 20:15 Results - Labs 01/06/18 06:14 01/06/18 06:14 Laboratory Results - last 24 hr 01/05/18 01/05/18 01/05/18 15:22 15:23 16:00 WBC RBC Hgb Hct MCV MCH MCHC RDW Plt Count MPV Prelim Diff (Auto) Neut % (Auto) Lymph % (Auto) [place] % (Auto) Eos % (Auto) Baso % (Auto) Neut # (Auto) Lymph # (Auto) [place] # (Auto) Eos # (Auto) Baso # (Auto) WBC Differential Seg Neuts % (Manual) Band Neuts % (Manual) Lymphocytes % (Manual) Monocytes % (Manual) Basophils % (Manual) Abs Neuts (Manual) Differential Comment Platelet Estimate Platelet Morphology Sodium Potassium Chloride Carbon Dioxide Anion Gap BUN Creatinine Estimated GFR POC Glucose 38 L* 47 L* 61 L Random Glucose Calcium Phosphorus Magnesium 01/05/18 01/05/18 01/05/18 16:00 16:22 16:24 WBC RBC Hgb Hct MCV MCH MCHC RDW Plt Count MPV Prelim Diff (Auto) Neut % (Auto) Lymph % (Auto) [place] % (Auto) Eos % (Auto) Baso % (Auto) Neut # (Auto) Lymph # (Auto) [place] # (Auto) Eos # (Auto) Baso # (Auto) WBC Differential Seg Neuts % (Manual) Band Neuts % (Manual) Lymphocytes % (Manual) Monocytes % (Manual) Basophils % (Manual) Abs Neuts (Manual) Differential Comment Platelet Estimate Platelet Morphology Sodium Potassium Chloride Carbon Dioxide Anion Gap BUN Creatinine Estimated GFR POC Glucose 63 L 217 H 162 H Random Glucose Calcium Phosphorus Magnesium 01/05/18 01/06/18 01/06/18 18:31 00:09 00:45 WBC RBC Hgb Hct MCV MCH MCHC RDW Plt Count MPV Prelim Diff (Auto) Neut % (Auto) Lymph % (Auto) [place] % (Auto) Eos % (Auto) Baso % (Auto) Neut # (Auto) Lymph # (Auto) [place] # (Auto) Eos # (Auto) Baso # (Auto) WBC Differential Seg Neuts % (Manual) Band Neuts % (Manual) Lymphocytes % (Manual) Monocytes % (Manual) Basophils % (Manual) Abs Neuts (Manual) Differential Comment Platelet Estimate Platelet Morphology Sodium Potassium Chloride Carbon Dioxide Anion Gap BUN Creatinine Estimated GFR POC Glucose 127 H 58 L 142 H Random Glucose Calcium Phosphorus Magnesium 01/06/18 01/06/18 01/06/18 05:32 06:14 06:14 WBC 4.8 RBC 2.95 L Hgb 9.8 L Hct 28.2 L MCV 95.4 D MCH 33.1 MCHC 34.7 RDW 15.8 Plt Count 183 MPV 10.6 Prelim Diff (Auto) Slide review pending Neut % (Auto) 67.3 Lymph % (Auto) 21.0 [place] % (Auto) 8.2 H Eos % (Auto) 2.4 Baso % (Auto) 1.1 Neut # (Auto) 3.2 Lymph # (Auto) 1.0 [place] # (Auto) 0.4 Eos # (Auto) 0.1 Baso # (Auto) 0.1 WBC Differential Manual diff final Seg Neuts % (Manual) 50 Band Neuts % (Manual) 21 H Lymphocytes % (Manual) 16 Monocytes % (Manual) 10 H Basophils % (Manual) 3 H Abs Neuts (Manual) 3.4 Differential Comment . Platelet Estimate Normal Platelet Morphology Enlarged H Sodium 138 Potassium 2.9 L* Chloride 98 Carbon Dioxide 30.2 Anion Gap 10 BUN 19 H Creatinine 1.35 H Estimated GFR 45 L POC Glucose 105 Random Glucose 93 Calcium 7.5 L Phosphorus 3.2 Magnesium 1.3 L - Imaging Imaging: ITS Impressions Abdomen X-Ray 12/24/17 00:00 CONCLUSION: Dilated small bowel with collapse of the colon most characteristic of small bowel obstructive process. Calcific atherosclerotic vascular disease Abdomen/Pelvis CT 12/24/17 00:00 CONCLUSION: 1. Small to moderate amount of free air of concern for ruptured viscus. 2. Abnormal bowel gas pattern with dilated loops of small bowel and air-fluid levels most characteristic of a small bowel obstruction. 3. Moderate diverticulosis present. These findings were called to Dr. Aldrich at 1839 hours. Chest X-Ray 01/02/18 06:00 CONCLUSION: No significant change. 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 -CCM following---stable on NC -Replace K -Tolerating regular diet--- continue calorie count -May need supplemental feedings via G tube -Palliative Care following -PT -Continue ileostomy care and teaching (3) History of esophageal reflux Code(s): Z87.19 - Personal history of other diseases of the digestive system Status: Chronic - Attending Attestation NOTE FOR SURGICAL ATTENDING, DR. ROYA ALDRICH I agree with above assessment and plan. The exam, history, and the medical decision-making described in the above note were completed with the assistance of the mid-level provider. I reviewed and agree with the findings presented. I attest that I had a [id number] encounter with the patient on the same day, and personally performed and documented my assessment and findings in the medical record. The following services were provided during this hospital visit: Chart data review, vital sign assessments/reviewing monitor data Review of consultations notes if present. Medication orders/review and/or management Ordering and/or reviewing lab tests Ordering and/or interpreting/reviewing x-rays and/or diagnostic studies Care of the patient and discussion of the patient with the care team Documentation time To help prompt me to consider important information that might be impacting today's encounter and assessment, Information from prior notes written by myself or my colleagues may have been "brought forward/copy and pasted" into today's note.
[2018-01-06 12:07] LABS: Calcium 7.5 mg/dL (8.5-10.1)
[2018-01-06 12:31] LABS: Total Protein 5.6 g/dL (6.4-8.2)
--- NOTE | 2018-01-06 14:53 | P.PNPAL ---
Reason for Visit Reason for visit: a. To assist with evaluation and management of symptoms including: pain; dyspnea; encephalopathy b. To assist medical decision maker(s) with: better understanding of current medical conditions; weighing benefits/burdens of medical treatment options; making medical treatment decisions. Subjective Subjective/Interval History: Follow-up medically necessary for symptom management. Patient seen and examined in her room in [facility]. Patient is alert, oriented to self, place and situation. Patient denies pain at this time. Per bedside RN, patient has been out of bed with physical therapy and had a problem with hypotensive. She is also been having issues with hypoglycemia with POC glucose running in the low 20s. Patient is currently on tube feedings Jevity at 55 mL's per hour. She also his D10W infusing at 30 mL's per hour. Per nurse patient was asymptomatic while hypoglycemic. Speech therapy following, patient is currently on honey thick liquids and pured consistencies of food. Per nursing patient has had decreased oral intake ever since he has been on a diet. Patient denies nausea nor decreased appetite. Laboratory workup today revealing sodium 138, potassium 2.9, BUN/creatinine 19/ 1.35, random glucose 93 and total protein 5.6. Patient son scored present during visit. Patient's son is hopeful that patient can get better and we will definitely need rehabilitation. Physical therapy recommending PT at rehab. Case discussed with bedside RN and Dr. Scott Family/Friend Interactions: See interval note Advance Directives Living Will: Never completed Health Care Surrogate: Never completed Durable Power of Volumetric Weigher: Never completed Health Care Surrogate Name and Number: HCP: X2 Sons Documented care wishes:: No written documentation of health care goals/preferences . Objective Vital Signs: Vital Signs 01/05/18 16:00 01/05/18 18:00 01/05/18 20:00 Temperature 97.9 F 97.5 F L Pulse Rate 84 83 87 Respiratory Rate 18 16 Blood Pressure 129/64 108/53 L Pulse Oximetry 100 98 01/05/18 22:24 01/06/18 00:00 01/06/18 04:00 Temperature 97.8 F 97.7 F Pulse Rate 80 77 Respiratory Rate 18 18 Blood Pressure 118/60 102/54 L Pulse Oximetry 98 98 98 01/06/18 06:00 01/06/18 08:00 Temperature Pulse Rate 79 Respiratory Rate Blood Pressure Pulse Oximetry 97 Intake & Output 01/05/18 01/06/18 01/06/18 18:59 06:59 18:59 Intake Total 450 / 450 1680 / 1680 150 / 150 Output Total 1850 / 1850 1100 / 1100 Balance -1400 / -1400 580 / 580 150 / 150 Weight 65 kg Intake: IV 250 / 250 550 / 550 150 / 150 D10W Inj 500 ML @ 30 mls/hr IV. 500 / 500 SIG .[id number] JUANITA Rx#:[id number] Zosyn 3.375 GM Premix 50 ML @ 50 / 50 50 / 50 50 / 50 100 mls/hr IV.SIG Q6H JUANITA Rx#: [id number] Zosyn 4.5 GM Premix 4.5 gm In 200 / 200 100 ml @ 200 mls/hr IV.SIG Q6H JUANITA Rx#:[id number] KCl 20 mEq Premix Inj 20 meq In 100 / 100 100 ml @ 50 mls/hr IV.SIG Q2H PRN Rx#:[id number] Oral 200 / 200 0 / 0 Tube Feeding 930 / 930 Tube Irrigant 200 / 200 Output: Urine Amount (Catheter) 850 / 850 250 / 250 Indwelling Urethral Catheter 850 / 850 250 / 250 Stool Amount (Stoma) 1000 / 1000 850 / 850 Right Lower Abdomen 1000 / 1000 850 / 850 Other: Date of Last Bowel Movement 01/05/18 # Incontinent Bowel Movements 1 Physical Exam: CONSTITUTIONAL/GENERAL: This is an adequately nourished patient, in no acute distress. TUBES/LINES/DRAINS: left subclavian central line; castillo catheter; Gastrostomy tube, SCDs. SKIN: No jaundice or lesions. abdominal surgical wound covered with a primapore dressing. Skin temperature appropriate. Not diaphoretic. HEAD: Atraumatic. Normocephalic. EYES: PERRLA. No scleral icterus. No injection or drainage. Fundi not examined. ENT: Hearing normal. Nose without bleeding or purulent drainage. Moist oral mucosa. NECK: Trachea midline. CARDIOVASCULAR: Regular rate and rhythm without murmurs, gallops, or rubs. No JVD. Peripheral pulses symmetric. RESPIRATORY/CHEST: Symmetric, unlabored respirations. Clear to auscultation. Diminished breath sounds in the bases. No wheezes, rales, or rhonchi. GASTROINTESTINAL: Midline abdominal wound with dressing intact-has an abdominal binder. Gastrostomy with TF infusing @ 30ml/hr. Intermittent bowel sounds GENITOURINARY: Without palpable bladder distension. Castillo catheter in place. MUSCULOSKELETAL: Extremities without clubbing, cyanosis. Edema improving. SCDs in place. No mottling. NEUROLOGICAL: Lethargic and oriented to self, place and partially situation. Following simple commands with all 4 extremities. Weak. PSYCHIATRIC: No anxiety or obvious signs of depression. Calm. . Diagnostic Tests Laboratory: Laboratory Results - last 72 hr 01/03/18 01/03/18 01/03/18 15:24 15:25 15:58 WBC RBC Hgb Hct MCV MCH MCHC RDW Plt Count MPV Prelim Diff (Auto) Neut % (Auto) Lymph % (Auto) Real % (Auto) Eos % (Auto) Baso % (Auto) Neut # (Auto) Lymph # (Auto) Real # (Auto) Eos # (Auto) Baso # (Auto) WBC Differential Diff Scan Seg Neuts % (Manual) Band Neuts % (Manual) Lymphocytes % (Manual) Monocytes % (Manual) Basophils % (Manual) Abs Neuts (Manual) Differential Comment Platelet Estimate Platelet Morphology Sodium Potassium Chloride Carbon Dioxide Anion Gap BUN Creatinine Estimated GFR POC Glucose 31 L* 60 L 109 Random Glucose Calcium Prot Corrected Calcium Phosphorus Magnesium Total Bilirubin AST ALT Alkaline Phosphatase Total Protein Albumin 01/03/18 01/04/18 01/04/18 23:53 00:33 09:54 WBC RBC Hgb Hct MCV MCH MCHC RDW Plt Count MPV Prelim Diff (Auto) Neut % (Auto) Lymph % (Auto) Real % (Auto) Eos % (Auto) Baso % (Auto) Neut # (Auto) Lymph # (Auto) Real # (Auto) Eos # (Auto) Baso # (Auto) WBC Differential Diff Scan Seg Neuts % (Manual) Band Neuts % (Manual) Lymphocytes % (Manual) Monocytes % (Manual) Basophils % (Manual) Abs Neuts (Manual) Differential Comment Platelet Estimate Platelet Morphology Sodium Potassium Chloride Carbon Dioxide Anion Gap BUN Creatinine Estimated GFR POC Glucose 62 L 105 78 Random Glucose Calcium Prot Corrected Calcium Phosphorus Magnesium Total Bilirubin AST ALT Alkaline Phosphatase Total Protein Albumin 01/04/18 01/04/18 01/05/18 15:17 18:27 00:30 WBC RBC Hgb Hct MCV MCH MCHC RDW Plt Count MPV Prelim Diff (Auto) Neut % (Auto) Lymph % (Auto) Real % (Auto) Eos % (Auto) Baso % (Auto) Neut # (Auto) Lymph # (Auto) Real # (Auto) Eos # (Auto) Baso # (Auto) WBC Differential Diff Scan Seg Neuts % (Manual) Band Neuts % (Manual) Lymphocytes % (Manual) Monocytes % (Manual) Basophils % (Manual) Abs Neuts (Manual) Differential Comment Platelet Estimate Platelet Morphology Sodium Potassium Chloride Carbon Dioxide Anion Gap BUN Creatinine Estimated GFR POC Glucose 75 90 49 L* Random Glucose Calcium Prot Corrected Calcium Phosphorus Magnesium Total Bilirubin AST ALT Alkaline Phosphatase Total Protein Albumin 01/05/18 01/05/18 01/05/18 01:11 05:56 06:08 WBC 5.6 RBC 2.89 L Hgb 10.5 L Hct 28.8 L MCV 99.6 MCH 36.5 H MCHC 36.7 H RDW 15.9 Plt Count 198 D MPV 10.6 Prelim Diff (Auto) Slide review pending Neut % (Auto) 75.6 H Lymph % (Auto) 16.2 Real % (Auto) 6.1 Eos % (Auto) 1.3 Baso % (Auto) 0.8 Neut # (Auto) 4.3 Lymph # (Auto) 0.9 L Real # (Auto) 0.3 Eos # (Auto) 0.1 Baso # (Auto) 0.0 WBC Differential . Diff Scan Auto diff confirmed Seg Neuts % (Manual) Band Neuts % (Manual) Lymphocytes % (Manual) Monocytes % (Manual) Basophils % (Manual) Abs Neuts (Manual) Differential Comment . Platelet Estimate Platelet Morphology Sodium Potassium Chloride Carbon Dioxide Anion Gap BUN Creatinine Estimated GFR POC Glucose 145 H 84 Random Glucose Calcium Prot Corrected Calcium Phosphorus Magnesium Total Bilirubin AST ALT Alkaline Phosphatase Total Protein Albumin 01/05/18 01/05/18 01/05/18 06:08 15:22 15:23 WBC RBC Hgb Hct MCV MCH MCHC RDW Plt Count MPV Prelim Diff (Auto) Neut % (Auto) Lymph % (Auto) Real % (Auto) Eos % (Auto) Baso % (Auto) Neut # (Auto) Lymph # (Auto) Real # (Auto) Eos # (Auto) Baso # (Auto) WBC Differential Diff Scan Seg Neuts % (Manual) Band Neuts % (Manual) Lymphocytes % (Manual) Monocytes % (Manual) Basophils % (Manual) Abs Neuts (Manual) Differential Comment Platelet Estimate Platelet Morphology Sodium 142 Potassium 3.5 Chloride 102 Carbon Dioxide 27.3 Anion Gap 13 BUN 16 Creatinine 1.35 H Estimated GFR 45 L POC Glucose 38 L* 47 L* Random Glucose 76 Calcium 7.3 L* Prot Corrected Calcium 8.1 L Phosphorus Magnesium Total Bilirubin 0.7 AST 33 ALT 22 Alkaline Phosphatase 138 H Total Protein 5.7 L D Albumin 1.6 L 01/05/18 01/05/18 01/05/18 16:00 16:00 16:22 WBC RBC Hgb Hct MCV MCH MCHC RDW Plt Count MPV Prelim Diff (Auto) Neut % (Auto) Lymph % (Auto) Real % (Auto) Eos % (Auto) Baso % (Auto) Neut # (Auto) Lymph # (Auto) Real # (Auto) Eos # (Auto) Baso # (Auto) WBC Differential Diff Scan Seg Neuts % (Manual) Band Neuts % (Manual) Lymphocytes % (Manual) Monocytes % (Manual) Basophils % (Manual) Abs Neuts (Manual) Differential Comment Platelet Estimate Platelet Morphology Sodium Potassium Chloride Carbon Dioxide Anion Gap BUN Creatinine Estimated GFR POC Glucose 61 L 63 L 217 H Random Glucose Calcium Prot Corrected Calcium Phosphorus Magnesium Total Bilirubin AST ALT Alkaline Phosphatase Total Protein Albumin 01/05/18 01/05/18 01/06/18 16:24 18:31 00:09 WBC RBC Hgb Hct MCV MCH MCHC RDW Plt Count MPV Prelim Diff (Auto) Neut % (Auto) Lymph % (Auto) Real % (Auto) Eos % (Auto) Baso % (Auto) Neut # (Auto) Lymph # (Auto) Real # (Auto) Eos # (Auto) Baso # (Auto) WBC Differential Diff Scan Seg Neuts % (Manual) Band Neuts % (Manual) Lymphocytes % (Manual) Monocytes % (Manual) Basophils % (Manual) Abs Neuts (Manual) Differential Comment Platelet Estimate Platelet Morphology Sodium Potassium Chloride Carbon Dioxide Anion Gap BUN Creatinine Estimated GFR POC Glucose 162 H 127 H 58 L Random Glucose Calcium Prot Corrected Calcium Phosphorus Magnesium Total Bilirubin AST ALT Alkaline Phosphatase Total Protein Albumin 01/06/18 01/06/18 01/06/18 00:45 05:32 06:14 WBC RBC Hgb Hct MCV MCH MCHC RDW Plt Count MPV Prelim Diff (Auto) Neut % (Auto) Lymph % (Auto) Real % (Auto) Eos % (Auto) Baso % (Auto) Neut # (Auto) Lymph # (Auto) Real # (Auto) Eos # (Auto) Baso # (Auto) WBC Differential Diff Scan Seg Neuts % (Manual) Band Neuts % (Manual) Lymphocytes % (Manual) Monocytes % (Manual) Basophils % (Manual) Abs Neuts (Manual) Differential Comment Platelet Estimate Platelet Morphology Sodium 138 Potassium 2.9 L* Chloride 98 Carbon Dioxide 30.2 Anion Gap 10 BUN 19 H Creatinine 1.35 H Estimated GFR 45 L POC Glucose 142 H 105 Random Glucose 93 Calcium 7.5 L Prot Corrected Calcium Phosphorus 3.2 Magnesium 1.3 L Total Bilirubin AST ALT Alkaline Phosphatase Total Protein Albumin 01/06/18 01/06/18 01/06/18 06:14 06:14 12:10 WBC 4.8 RBC 2.95 L Hgb 9.8 L Hct 28.2 L MCV 95.4 D MCH 33.1 MCHC 34.7 RDW 15.8 Plt Count 183 MPV 10.6 Prelim Diff (Auto) Slide review pending Neut % (Auto) 67.3 Lymph % (Auto) 21.0 Real % (Auto) 8.2 H Eos % (Auto) 2.4 Baso % (Auto) 1.1 Neut # (Auto) 3.2 Lymph # (Auto) 1.0 Real # (Auto) 0.4 Eos # (Auto) 0.1 Baso # (Auto) 0.1 WBC Differential Manual diff final Diff Scan Seg Neuts % (Manual) 50 Band Neuts % (Manual) 21 H Lymphocytes % (Manual) 16 Monocytes % (Manual) 10 H Basophils % (Manual) 3 H Abs Neuts (Manual) 3.4 Differential Comment . Platelet Estimate Normal Platelet Morphology Enlarged H Sodium Potassium Chloride Carbon Dioxide Anion Gap BUN Creatinine Estimated GFR POC Glucose 24 L* Random Glucose Calcium 7.5 L Prot Corrected Calcium 8.3 L Phosphorus Magnesium Total Bilirubin AST ALT Alkaline Phosphatase Total Protein 5.6 L Albumin 01/06/18 01/06/18 01/06/18 12:12 12:53 12:54 WBC RBC Hgb Hct MCV MCH MCHC RDW Plt Count MPV Prelim Diff (Auto) Neut % (Auto) Lymph % (Auto) Real % (Auto) Eos % (Auto) Baso % (Auto) Neut # (Auto) Lymph # (Auto) Real # (Auto) Eos # (Auto) Baso # (Auto) WBC Differential Diff Scan Seg Neuts % (Manual) Band Neuts % (Manual) Lymphocytes % (Manual) Monocytes % (Manual) Basophils % (Manual) Abs Neuts (Manual) Differential Comment Platelet Estimate Platelet Morphology Sodium Potassium Chloride Carbon Dioxide Anion Gap BUN Creatinine Estimated GFR POC Glucose 29 L* 56 L 74 Random Glucose Calcium Prot Corrected Calcium Phosphorus Magnesium Total Bilirubin AST ALT Alkaline Phosphatase Total Protein Albumin 01/06/18 12:54 WBC RBC Hgb Hct MCV MCH MCHC RDW Plt Count MPV Prelim Diff (Auto) Neut % (Auto) Lymph % (Auto) Real % (Auto) Eos % (Auto) Baso % (Auto) Neut # (Auto) Lymph # (Auto) Real # (Auto) Eos # (Auto) Baso # (Auto) WBC Differential Diff Scan Seg Neuts % (Manual) Band Neuts % (Manual) Lymphocytes % (Manual) Monocytes % (Manual) Basophils % (Manual) Abs Neuts (Manual) Differential Comment Platelet Estimate Platelet Morphology Sodium Potassium Chloride Carbon Dioxide Anion Gap BUN Creatinine Estimated GFR POC Glucose 77 Random Glucose Calcium Prot Corrected Calcium Phosphorus Magnesium Total Bilirubin AST ALT Alkaline Phosphatase Total Protein Albumin Result Diagrams: 01/06/18 06:14 01/06/18 06:14 Procedures: Intubation/mechanical ventilation Left subclavian central line placement Right radial arterial line placement Exploratory lap --> resection of terminal ileum/appendectomy 12/26/17: Patient underwent removal of temporary abdominal closure device, abdominal exploration, small bowel resection, resection of cecum and terminal ileum, primary anastomosis of ileum to ascending colon, which the tissue was compromised and the anastomosis failed, resection of anastomosis, placement of ileostomy, cholecystectomy and placement of temporary abdominal closure device. 01/01/2018: Medically extubated . Assessment and Plan - Disease Oriented Problem List (1) Ischemic bowel syndrome (2) Septic shock (3) Sepsis (4) Anemia (5) Hypoalbuminemia - Symptom Scale (1) Pain 0-10 Scale: 0 (2) Dyspnea 0-10 Scale: Unable to quantify (3) Encephalopathy 0-10 Scale: Unable to quantify Comment: Improving. Medically extubated 01/01/18. oriented to self, place and partially situation. Pertinent Non-Medical Issues: Psychosocial: Originally from [place]. Moved to [facility] around 1991. High school graduate. 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 Two sons -- Yves and Don -- live locally and check in on her frequently. Spiritual: Adventist and spirituality have not played a large role in her life. She does not belong to any local max group. She does pray, however. Legal: No known advanced directive. Without a designated healthcare surrogate, her sons would be the joint proxy healthcare decision makers. Ethical issues impacting care: Patient is incapacitated to make her own healthcare decisions. It is currently unknown if she will regain capacity to do so. Important Contacts: Don Johnson (son and co-proxy) [phone] Yves Johnson (son and co-proxy) [phone] . Prognosis: Ms. Johnson is critically ill. She was in remarkably good shape for her age until about 2-3 weeks ago when her GI problems began, but she has gone into major surgery undernourished and post-operatively she is now hypotensive, bradycardic , and hypothermic. She is scheduled for additional surgery on 12/26/17. In spite of her relatively high level of functioning just weeks ago, she remains an grave risk of not surviving the hospitalization. Should she survive, the odds are that she would not get home again and would be either in a nursing facility or the hospital until her . At such time that patient or family feels that comfort measures only would be most in line with her goals, she would be eligible for hospice services. . Code Status: Alternative Code (No chest compressions, No shock) Plan: == Code Status: Alternative Code- No chest compressions, No shock. == Goals of medical treatment: As per discussion with patient`s son Don on status post patient`s medical extubation. Code status to remain as alternative code. If patient would be in respiratory distress patient`s would like patient to be intubated and patient`s son Don reiterates that he does not want chest compressions and shock. Goals remain aggressive. == Medical Decision making: There is no known written designation of healthcare surrogate. Patient medically extubated today 01/01. Patient is oriented to self, place and partially situation. Per [place] statutes hierarchy , proxy medical decision making would fall jointly to her two sons--Maddy. == Symptoms * Pain: There were no known prehospitalization pain syndromes. Current sources of pain include her recent abdominal surgery; orotracheal and nasogastric intubations; vascular access lines; prolonged bedbound status; Castillo catheter. prn Morphine sulfate and Acetaminophen available. Pain most likely adequately addressed. Patient denying pain. No further recommendations at this time. * Dyspnea: No known underlying lung disease. Current respiratory issues probably secondary to shock. Patient is now on O2 2 L nasal cannula. Currently O2 saturation 100% with no signs of respiratory distress. Patient on Furosemide. Continue to monitor for respiratory distress. * Encephalopathy: No known underlying dementia. Encephalopathy is probably multifactorial with sepsis playing a large role. Patient medically extubated today. Minimally verbal. She is oriented to self, place and partially situation. Following simple commands. Encephalopathy appears to be gradually resolving. == At anytime goals of care should transition to "comfort measures only," patient would be eligible for hospice services. == Palliative care will continue to follow to assist with symptom management and to further clarify goals of medical treatment as the clinical course evolves. . Attestation Attestation: To help prompt me to consider important information that might be impacting today's encounter and assessment, information from prior notes written by myself or my colleagues may have been "brought forward" into today's note. My signature on this note, however, is an attestation that I personally performed the exam, history, and/or decision-making noted today, and, unless otherwise indicated, the interactions with patient, family, and staff as well as the review of records all occurred today. I also attest that the listed assessment and stated plan reflect my best clinical judgment today based on the combination of historical information, prior notes, and today's exam/ interactions. When time spent is documented, it refers only to time spent today by the signer, or if indicated, combined time spent today by collaborating physician/nurse practitioner.
[2018-01-07] MEDS: Piperacil/Tazo 3.375 GM Premix 50 ML IV.SIG SCH ×4 (00:23→17:55)
[2018-01-07] MEDS: Oral Hygiene Kit OROPHARYNG SCH ×4 (00:23→17:40)
[2018-01-07] MEDS: Dextrose 50% in Water 50 ML Vial IV.PUSH PRN ×6 (00:31→18:56)
[2018-01-07 07:29] LABS: Calcium 7.9 mg/dL (8.5-10.1); Carbon Dioxide 28.1 meq/L (21.0-32.0); Magnesium 1.3 mg/dL (1.5-2.5); Phosphorus 2.4 mg/dL (2.5-4.9); Potassium 3.2 meq/L (3.5-5.1)
[2018-01-07 07:55] LABS: Baso # (Auto) 0.1 th/mm3 (0.0-0.2); Baso % (Auto) 1.2 % (0.0-2.0); Eos # (Auto) 0.1 th/mm3 (0.0-0.4); Eos % (Auto) 1.2 % (0.0-4.0); Hematocrit 27.3 % (35.0-46.0); Hemoglobin 10.2 gm/dL (11.6-15.3); Lymph # (Auto) 1.3 th/mm3 (1.0-4.8); Lymph % (Auto) 23.7 % (9.0-44.0); Mean Corpuscular Hemoglobin 37.3 pg (27.0-34.0); Mean Platelet Volume 10.6 fL (7.0-11.0); Mono # (Auto) 0.6 th/mm3 (0.0-0.9); Neut # (Auto) 3.6 th/mm3 (1.8-7.7); Neut % (Auto) 63.9 % (16.0-70.0); Platelet Count 209 th/mm3 (150-450); Red Blood Count 2.73 mil/mm3 (4.00-5.30); White Blood Count 5.7 th/mm3 (4.0-11.0)
[2018-01-07 07:58] LABS: Mean Corpuscular HGB Conc 37.3 % (32.0-36.0)
[2018-01-07 08:44] LABS: Platelet Estimate Normal (Normal)
[2018-01-07] MEDS: Chlorhexidine 0.12% Oral Kit 15 ML UDC OROPHARYNG SCH ×2 (10:11→20:09)
[2018-01-07] MEDS: Loperamide Liq 2 MG/10 ML UDC G-TUBE SCH ×2 (10:12→20:14)
[2018-01-07] MEDS: Atenolol 50 MG Tablet PO SCH ×2 (10:12→20:08)
[2018-01-07] MEDS: Enoxaparin Inj 40 MG/0.4 ML Syringe SQ SCH (10:12)
[2018-01-07] MEDS: Potassium Chloride 25 MEQ Effervescent Tablet NG/OG SCH ×2 (10:12→20:08)
[2018-01-07] MEDS ORDERED: Sod Chloride 0.9% Inj 1,000 ML IV.SIG SCH (15:18)
--- NOTE | 2018-01-07 15:54 | P.PNCC ---
Subjective Subjective Remarks/Hospital Course: 87yF originally admitted for abdominal pain and now found to have perforated hollow viscus with intra-abdominal free air. taken to OR emergently by Dr. Aldrich for exploratory laparotomy where they found small bowel perforation. small bowel was resected and due to significantly poor patient tissue and gross contamination of the field, patient was left in discontinuity with an open abdomen. arrives to the ICU intubated, critically ill, on vasopressors, in shock. sedated. no additional information is available from the patient; ROS unobtainable. 12/25: She remains oliguric and septic. We are unable to separate her from mechanical ventilation and are still correcting her metabolic acidosis. Pre- albumin of 5 implicates poor preoperative nutrition. Description of bowel from surgery lens support for a severely debilitated state prior to surgery. She is presently hemodynamically unstable and oliguric. 12/26: Magnesium, phosphate, potassium all low; presently being replaced. Persistent septic pattern. Scheduled for second look operation later today, anticipate discouraging findings. Acid-base balance acceptable in gas exchange good. Update: Back from OR. Well perfused. Clear lungs. Base -6. Urine acceptable. 12/27: Back from surgery yesterday with end ileostomy fashioned. Abdomen remains open with VAC dressing in place. Acid-base balance modestly improved and acceptable. Urine output acceptable and renal function remains close to normal. She remains hemodynamically unstable and rate wiring levo fed at 9 mcg/ min; typical of the smoldering septic picture. 12/28: Renal function remains acceptable. Requiring ongoing vasopressor support with Levophed. Acid-base balance largely corrected. Ileostomy is well perfused and functioning. Plan is to attempt to close the abdomen tomorrow. Blood sugar has twice dropped into the 20s when glucose containing IV solutions have all been stopped. Plan to start tube feeds when OK with surgical service. Please keep glucose containing solution running during operative procedures 12/29: Patient seen after OR. Abdomen closed, new J-tube in place. Ileostomy pink. Still requiring high-dose Levophed currently at 10 mcg/min. No hypoglycemia reported. For OR report is pending. Developed paroxysmal A. fib postop. Replace potassium and magnesium, give metoprolol as needed IV 12/30: Remains intubated sedated. Patient had episode of hypotension overnight. Currently still on vasopressin 0.04 IU. Hemoglobin is 7.1 I have ordered stat 1 unit PRBC. Remains on amiodarone currently sinus rhythm. Opens eyes to stimulation moves extremities purposefully 12/31: Remains on the vent, blood pressure has improved off vasopressin now. Grossly fluid positive approximately 25 KG. Showing generalized anasarca. Give IV Lasix 60 mg 1 and then 40 every 12 hours scheduled. Blood sugar remains low (72 am) despite D5 LR and tube feeds 01/01: Remains intubated currently off propofol only on fentanyl. Wakes up follows commands but remains weak lethargic. Urine output excellent with aggressive diuresis 6.2 L in 24 hours. D/W Dr. Aldrich 01/02: Patient was extubated yesterday tolerating well. Remains off pressors currently hypotensive. Atenolol was restarted yesterday. I will restart losartan and triamterene hydrochlorothiazide today. Son at the bedside updated he wants to continue intubation only. 01/03: Extubated and breathing comfortably. Protects airway well no obstructive noises. Nutritional status remains problematic and we are pushing adjunctive nutrition. 01/04: Excess water coming off nicely over the past 4 days and renal function remains on impaired. She is required 50% dextrose for hypoglycemia again and the etiology of this remains unclear. The suspicion is that her liver is not storing glycogen properly following her resuscitation from the shock state. I will start 10% dextrose this IV until this problem resolves. Will have to follow her caloric intake closely now that she is starting to feed. Moderate contraction alkalosis will require a carbonic anhydrase inhibitor for a day or 2. RECONSULT NOTE: reconsulted today 01/07 for hypotension, hypoglycemia by Dr. Aldrich's team. I know this patient well, as I admitted her to the ICU. in brief, elderly female s/p small bowel perforation and ileostomy placement. has been critically ill and ongoing issues are hypoglycemia. Over last few days, has been having high ostomy output and progressive SARA, hypotension. on my exam today, poor skin turgor and clinically appears very dehydrated. actively receiving NS bolus. patient denies complaints. of note, she is an "Alt code: intubation only/no cpr". ROS otherwise negative, no chest pain, sob, abd pain, n /v. Objective Vital Signs / I&O: Vital Signs 01/06/18 16:00 01/06/18 18:00 01/06/18 20:00 Temperature 36.4 C L 36.7 C Pulse Rate 104 H 104 H 112 H Respiratory Rate 16 15 Blood Pressure 138/75 95/50 L Pulse Oximetry 96 94 L 01/06/18 20:17 01/06/18 22:00 01/07/18 00:00 Temperature 36.8 C Pulse Rate 96 H 94 H Respiratory Rate 16 Blood Pressure 115/58 L Pulse Oximetry 98 93 L 01/07/18 02:00 01/07/18 04:00 01/07/18 06:00 Temperature 36.6 C Pulse Rate 96 H 108 H 92 H Respiratory Rate 18 Blood Pressure 94/51 L Pulse Oximetry 95 01/07/18 09:32 Temperature Pulse Rate Respiratory Rate Blood Pressure Pulse Oximetry 96 Intake & Output 01/06/18 01/07/18 01/07/18 18:59 06:59 18:59 Intake Total 1743 / 1743 1302 / 1302 50 / 50 Output Total 2750 / 2750 400 / 400 Balance -1007 / -1007 902 / 902 50 / 50 Weight 61.5 kg Intake: IV 500 / 500 650 / 650 50 / 50 D10W Inj 500 ML @ 30 mls/hr IV. 500 / 500 SIG .[id number] [facility] Rx#:[id number] Zosyn 3.375 GM Premix 50 ML @ 100 / 100 150 / 150 50 / 50 100 mls/hr IV.SIG Q6H [facility] Rx#: [id number] KCl 20 mEq Premix Inj 20 meq In 400 / 400 100 ml @ 50 mls/hr IV.SIG Q2H [facility] Rx#:[id number] Oral 0 / 0 40 / 40 Tube Feeding 643 / 643 612 / 612 Tube Irrigant 600 / 600 Output: Urine Amount (Catheter) 550 / 550 400 / 400 Indwelling Urethral Catheter 550 / 550 400 / 400 Stool Amount (Stoma) 2200 / 2200 Right Lower Abdomen 0 / 2200 Other: Date of Last Bowel Movement 01/06/18 # Incontinent Bowel Movements 3 2 Result Diagrams: 01/07/18 06:45 01/07/18 06:45 Objective Remarks: GENERAL: Weak, elderly female, on nasal cannula. No distress but still appears frail SKIN: Well-perfused, but fragile skin, poor skin turgor. HEENT: Nasal cannula. Airway patent, no obstructive noises. CARDIOVASCULAR: NSR regular rhythm. no edema. RESPIRATORY: Equal chest rise. unlabored. GASTROINTESTINAL: Abdomen closed, midline incision dressing intact. Ostomy with liquid output, brown in color. G-tube in place, tolerating tube feeds MUSCULOSKELETAL: No obvious deformities. No clubbing or cyanosis. Limbs well perfused. NEUROLOGICAL: Lying in bed. Weak, protecting airway. Able to state a few words. Follows commands 4 limbs. Procedures: Laparotomy and bowel resection 12/24 Laparotomy and ileostomy formation 12/26 Intubation and mechanical ventilation Assessment and Plan - Problem List (1) Respiratory failure requiring intubation Code(s): J96.90 - Respiratory failure, unspecified, unspecified whether with hypoxia or hypercapnia Status: Acute (2) Septic shock Code(s): A41.9 - Sepsis, unspecified organism; R65.21 - Severe sepsis with septic shock Status: Acute (3) Hypoglycemia Code(s): E16.2 - Hypoglycemia, unspecified Status: Acute (4) Non-STEMI (non-ST elevated myocardial infarction) Code(s): I21.4 - Non-ST elevation (NSTEMI) myocardial infarction Status: Acute (5) Free intraperitoneal air Code(s): K66.8 - Other specified disorders of peritoneum Status: Resolved (6) Acute abdomen Code(s): R10.0 - Acute abdomen Status: Acute (7) Elevated lactic acid level Code(s): R79.89 - Other specified abnormal findings of blood chemistry Status : Acute (8) Ischemic bowel syndrome Code(s): K55.9 - Vascular disorder of intestine, unspecified Status: Acute - Assessment and Plan Plan: Assessment: 87yF with perforated small bowel now s/p emergent exploratory laparotomy, small bowel resection. Now complicated by acute dehydration, acute kidney injury, high ostomy output. Discussed with saloni Wolff: will send c. diff to rule out ileitis. replace ostomy output 1/2:1 with D5-NS+20kcl, change tube feeds to a higher calorie/carb from glucerna to vital. Plan by systems: Neurologic: Acute metabolic encephalopathy Minimize sedation minimize sedation Use as needed Tylenol and morphine for pain Respiratory: Acute hypoxic and hypercarbic respiratory failure-improving Bilateral pleural effusion Extubated yesterday 01/01/2018 tolerating well Head of bed elevated, Nebs Wean FiO2 for goal SPO2 greater than 90% Diuresis as below Diamox 1 today. Cardiovascular: Septic shock resolved hypotensive: dehydration Paroxysmal A. fib with RVR-resolved Cannot anticoagulate for A. fib due to recent surgery, discontinued amiodarone IV digoxin 0.25 mg 1 given 12/29/2017 Keep magnesium more than 2.2, keep potassium more than 4 Tenormin restarted yesterday, restart losartan and triamterene/ hydrochlorothiazide today IV labetalol 20 mg every 2 hours as needed for SBP more than 160 d10w @ 30 for hypoglycemia replace ostomy output 1/2:1 Renal: Acute kidney injury-worsening again secondary to dehydration ivf as above. - Strict I/Os FEN/GI: Small bowel perforation Intra-abdominal sepsis Severe acute protein calorie malnutrition Hypocalcemia Hypomagnesemia High ostomy output s/p abdominal closure 12/30/17. Ileostomy pink, new G-tube in place. change tube feeds to vital 1.5 @ 60 for a more elemental formula replace ostomy output 1/2:1 Imodium send c. diff sample ICU electrolyte protocol Dr. Aldrich following Heme/ID: Anemia secondary to acute blood loss Septic shock-resolved Intra-abdominal sepsis-resolved Daily CBC Follow-up cultures-negative to date Endocrine: Hypoglycemia: persistent Hypomagnesemia Hypokalemia -cortisol level 11 - continue d10w and d5 replacements - change tube feeds to vital - check AM LFTs, coags to eval for liver function - serial accuchecks - d50w as needed. -Aggressive electrolyte replacement Prophylaxis: GI Prophylaxis PPI IV DVT Prophylaxis -SCDs Subcu heparin-hold immediate post op period due to anemia. Star today 01/02 with Lovenox 40 mg subcu daily
--- NOTE | 2018-01-07 16:48 | P.PNGS ---
Subjective Interval history: DAILY PROGRESS NOTE FOR SURGICAL ATTENDING, DR. ROYA ALDRICH Sitting up in bed chair position in bed Don son at bedside Throughout today---the patient has declined in mental status---she is rather lethargic and not interactive with her son HARPAL Vásquez at bedside ---report BG was 15 this morning and was given 1 amp glucose--- checked again and now 56---giving another amp of glucose Physical Exam Vital signs: Vital Signs 01/06/18 18:00 01/06/18 20:00 01/06/18 20:17 Temperature 98.1 F Pulse Rate 104 H 112 H Respiratory Rate 15 Blood Pressure 95/50 L Pulse Oximetry 94 L 98 01/06/18 22:00 01/07/18 00:00 01/07/18 02:00 Temperature 98.3 F Pulse Rate 96 H 94 H 96 H Respiratory Rate 16 Blood Pressure 115/58 L Pulse Oximetry 93 L 01/07/18 04:00 01/07/18 06:00 01/07/18 09:32 Temperature 97.9 F Pulse Rate 108 H 92 H Respiratory Rate 18 Blood Pressure 94/51 L Pulse Oximetry 95 96 Intake & Output 01/06/18 01/07/18 01/07/18 18:59 06:59 18:59 Intake Total 1743 / 1743 1302 / 1302 50 / 50 Output Total 2750 / 2750 400 / 400 Balance -1007 / -1007 902 / 902 50 / 50 Weight 61.5 kg Intake: IV 500 / 500 650 / 650 50 / 50 D10W Inj 500 ML @ 30 mls/hr IV. 500 / 500 SIG .[id number] [facility] Rx#:[id number] Zosyn 3.375 GM Premix 50 ML @ 100 / 100 150 / 150 50 / 50 100 mls/hr IV.SIG Q6H [facility] Rx#: [id number] KCl 20 mEq Premix Inj 20 meq In 400 / 400 100 ml @ 50 mls/hr IV.SIG Q2H PRN Rx#:[id number] Oral 0 / 0 40 / 40 Tube Feeding 643 / 643 612 / 612 Tube Irrigant 600 / 600 Output: Urine Amount (Catheter) 550 / 550 400 / 400 Indwelling Urethral Catheter 550 / 550 400 / 400 Stool Amount (Stoma) 2200 / 2200 Right Lower Abdomen 2200 / 2200 Other: Date of Last Bowel Movement 01/06/18 # Incontinent Bowel Movements 3 2 Narrative: Awake although lethargic Abd: midline incision; ileostomy in place-- pink stoma--- copious thin yellow liquid stool G tube in place Moderate peripheral edema - Urinary Catheter Management Indwelling Urethral Catheter Cath placed during this visit: yes Reason for continuing: Hourly intake/output Insertion date: 12/24/17 Insertion time: 20:15 Results - Labs 01/08/18 06:19 01/08/18 06:19 Laboratory Results - last 24 hr 01/06/18 01/06/18 01/06/18 18:04 18:49 18:50 WBC RBC Hgb Hct MCV MCH MCHC RDW Plt Count MPV Prelim Diff (Auto) Neut % (Auto) Lymph % (Auto) [place] % (Auto) Eos % (Auto) Baso % (Auto) Neut # (Auto) Lymph # (Auto) [place] # (Auto) Eos # (Auto) Baso # (Auto) WBC Differential Diff Scan Differential Comment Platelet Estimate Platelet Morphology Sodium Potassium Chloride Carbon Dioxide Anion Gap BUN Creatinine Estimated GFR POC Glucose 50 L 36 L* 32 L* Random Glucose Calcium Phosphorus Magnesium 01/06/18 01/07/18 01/07/18 19:50 00:27 01:01 WBC RBC Hgb Hct MCV MCH MCHC RDW Plt Count MPV Prelim Diff (Auto) Neut % (Auto) Lymph % (Auto) [place] % (Auto) Eos % (Auto) Baso % (Auto) Neut # (Auto) Lymph # (Auto) [place] # (Auto) Eos # (Auto) Baso # (Auto) WBC Differential Diff Scan Differential Comment Platelet Estimate Platelet Morphology Sodium Potassium Chloride Carbon Dioxide Anion Gap BUN Creatinine Estimated GFR POC Glucose 68 55 L 82 Random Glucose Calcium Phosphorus Magnesium 01/07/18 01/07/18 01/07/18 06:23 06:45 06:45 WBC 5.7 RBC 2.73 L Hgb 10.2 L Hct 27.3 L MCV 100.0 D MCH 37.3 H MCHC 37.3 H RDW 16.0 Plt Count 209 MPV 10.6 Prelim Diff (Auto) Slide review pending Neut % (Auto) 63.9 Lymph % (Auto) 23.7 [place] % (Auto) 10.0 H Eos % (Auto) 1.2 Baso % (Auto) 1.2 Neut # (Auto) 3.6 Lymph # (Auto) 1.3 [place] # (Auto) 0.6 Eos # (Auto) 0.1 Baso # (Auto) 0.1 WBC Differential . Diff Scan Auto diff confirmed Differential Comment . Platelet Estimate Normal Platelet Morphology Enlarged H Sodium 138 Potassium 3.2 L Chloride 99 Carbon Dioxide 28.1 Anion Gap 11 BUN 20 H Creatinine 1.55 H Estimated GFR 38 L POC Glucose 68 Random Glucose 82 Calcium 7.9 L Phosphorus 2.4 L Magnesium 1.3 L 01/07/18 01/07/18 01/07/18 06:45 13:18 13:20 WBC RBC Hgb Hct MCV MCH MCHC RDW Plt Count MPV Prelim Diff (Auto) Neut % (Auto) Lymph % (Auto) [place] % (Auto) Eos % (Auto) Baso % (Auto) Neut # (Auto) Lymph # (Auto) [place] # (Auto) Eos # (Auto) Baso # (Auto) WBC Differential Diff Scan Differential Comment Platelet Estimate Platelet Morphology Sodium Potassium Cancelled Chloride Carbon Dioxide Anion Gap BUN Creatinine Estimated GFR POC Glucose 15 L* 33 L* Random Glucose Calcium Phosphorus Magnesium 01/07/18 01/07/18 13:49 15:08 WBC RBC Hgb Hct MCV MCH MCHC RDW Plt Count MPV Prelim Diff (Auto) Neut % (Auto) Lymph % (Auto) [place] % (Auto) Eos % (Auto) Baso % (Auto) Neut # (Auto) Lymph # (Auto) [place] # (Auto) Eos # (Auto) Baso # (Auto) WBC Differential Diff Scan Differential Comment Platelet Estimate Platelet Morphology Sodium Potassium Chloride Carbon Dioxide Anion Gap BUN Creatinine Estimated GFR POC Glucose 101 56 L Random Glucose Calcium Phosphorus Magnesium - Imaging Imaging: ITS Impressions Abdomen X-Ray 12/24/17 00:00 CONCLUSION: Dilated small bowel with collapse of the colon most characteristic of small bowel obstructive process. Calcific atherosclerotic vascular disease Abdomen/Pelvis CT 12/24/17 00:00 CONCLUSION: 1. Small to moderate amount of free air of concern for ruptured viscus. 2. Abnormal bowel gas pattern with dilated loops of small bowel and air-fluid levels most characteristic of a small bowel obstruction. 3. Moderate diverticulosis present. These findings were called to Dr. Aldrich at 1839 hours. Chest X-Ray 01/02/18 06:00 CONCLUSION: No significant change. 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 -CCM following again---patient is hypotensive and hypoglycemic ---given 1 L bolus and going to start replacing GI losses -Continue TF as tolerated -Continue frequent checks of blood glucose -Check c diff -Palliative Care following---discussed with Mila AGUILA of this afternoon's findings -PT -Continue ileostomy care and teaching -Discussed with Thalia Sheridan RN and Don (son) (3) History of esophageal reflux Code(s): Z87.19 - Personal history of other diseases of the digestive system Status: Chronic - Attending Attestation NOTE FOR SURGICAL ATTENDING, DR. ROYA ALDRICH I agree with above assessment and plan. The exam, history, and the medical decision-making described in the above note were completed with the assistance of the mid-level provider. I reviewed and agree with the findings presented. I attest that I had a [id number] encounter with the patient on the same day, and personally performed and documented my assessment and findings in the medical record. The following services were provided during this hospital visit: Chart data review, vital sign assessments/reviewing monitor data Review of consultations notes if present. Medication orders/review and/or management Ordering and/or reviewing lab tests Ordering and/or interpreting/reviewing x-rays and/or diagnostic studies Care of the patient and discussion of the patient with the care team Documentation time To help prompt me to consider important information that might be impacting today's encounter and assessment, Information from prior notes written by myself or my colleagues may have been "brought forward/copy and pasted" into today's note.
[2018-01-07] MEDS: Dextrose 10% in Water Inj 500 ML IV.SIG SCH (17:54)
[2018-01-07] MEDS: KCL 20 mEq/D5W/NaCl 0.9% Inj 1,000 ML IV.CONT SCH (21:36)
[2018-01-08] MEDS: Oral Hygiene Kit OROPHARYNG SCH ×4 (00:52→17:00)
[2018-01-08] MEDS: Piperacil/Tazo 3.375 GM Premix 50 ML IV.SIG SCH ×4 (00:52→17:17)
[2018-01-08] MEDS: Dextrose 50% in Water 50 ML Vial IV.PUSH PRN ×4 (01:04→13:47)
[2018-01-08] MEDS ORDERED: Albumin Human 5% Inj 500 ML IV.SIG STA (06:10)
[2018-01-08 06:45] LABS: Baso # (Auto) 0.1 th/mm3 (0.0-0.2); Eos # (Auto) 0.1 th/mm3 (0.0-0.4); Eos % (Auto) 0.8 % (0.0-4.0); Hematocrit 28.3 % (35.0-46.0); Lymph # (Auto) 1.5 th/mm3 (1.0-4.8); Lymph % (Auto) 23.3 % (9.0-44.0); Mean Corpuscular HGB Conc 35.4 % (32.0-36.0); Mean Corpuscular Hemoglobin 34.6 pg (27.0-34.0); Mean Corpuscular Volume 97.5 fL (80.0-100.0); Mean Platelet Volume 10.4 fL (7.0-11.0); Mono # (Auto) 0.7 th/mm3 (0.0-0.9); Mono % (Auto) 10.5 % (0.0-8.0); Neut # (Auto) 4.2 th/mm3 (1.8-7.7); Neut % (Auto) 64.4 % (16.0-70.0); Platelet Count 295 th/mm3 (150-450); Red Blood Count 2.91 mil/mm3 (4.00-5.30); Red Cell Distribution Width 16.1 % (11.6-17.2); White Blood Count 6.6 th/mm3 (4.0-11.0)
[2018-01-08 06:55] LABS: Activated Partial Thrombo Time 36.4 sec (24.3-30.1); INR 2.1 Ratio; Prothrombin Time 20.9 sec (9.8-11.6)
[2018-01-08 06:59] LABS: Albumin 1.8 g/dL (3.4-5.0); Calcium 8.2 mg/dL (8.5-10.1); Carbon Dioxide 34.9 meq/L (21.0-32.0); Magnesium 1.3 mg/dL (1.5-2.5); Phosphorus 2.1 mg/dL (2.5-4.9); Total Protein 6.7 g/dL (6.4-8.2)
[2018-01-08 07:05] LABS: Potassium 2.7 meq/L (3.5-5.1)
[2018-01-08] MEDS: Dextrose 10% in Water Inj 500 ML IV.SIG SCH (08:32)
[2018-01-08] MEDS: Chlorhexidine 0.12% Oral Kit 15 ML UDC OROPHARYNG SCH ×2 (08:32→20:10)
[2018-01-08] MEDS: Potassium Chloride 25 MEQ Effervescent Tablet NG/OG SCH ×2 (08:39→20:10)
[2018-01-08] MEDS: Atenolol 50 MG Tablet PO SCH ×2 (08:39→20:10)
[2018-01-08] MEDS: Loperamide Liq 2 MG/10 ML UDC G-TUBE SCH ×2 (08:40→20:10)
[2018-01-08] MEDS: Enoxaparin Inj 40 MG/0.4 ML Syringe SQ SCH (08:41)
--- NOTE | 2018-01-08 10:48 | P.PNCC ---
Subjective Subjective Remarks/Hospital Course: 87yF originally admitted for abdominal pain and now found to have perforated hollow viscus with intra-abdominal free air. taken to OR emergently by Dr. Aldrich for exploratory laparotomy where they found small bowel perforation. small bowel was resected and due to significantly poor patient tissue and gross contamination of the field, patient was left in discontinuity with an open abdomen. arrives to the ICU intubated, critically ill, on vasopressors, in shock. sedated. no additional information is available from the patient; ROS unobtainable. 12/25: She remains oliguric and septic. We are unable to separate her from mechanical ventilation and are still correcting her metabolic acidosis. Pre- albumin of 5 implicates poor preoperative nutrition. Description of bowel from surgery lens support for a severely debilitated state prior to surgery. She is presently hemodynamically unstable and oliguric. 12/26: Magnesium, phosphate, potassium all low; presently being replaced. Persistent septic pattern. Scheduled for second look operation later today, anticipate discouraging findings. Acid-base balance acceptable in gas exchange good. Update: Back from OR. Well perfused. Clear lungs. Base -6. Urine acceptable. 12/27: Back from surgery yesterday with end ileostomy fashioned. Abdomen remains open with VAC dressing in place. Acid-base balance modestly improved and acceptable. Urine output acceptable and renal function remains close to normal. She remains hemodynamically unstable and rate wiring levo fed at 9 mcg/ min; typical of the smoldering septic picture. 12/28: Renal function remains acceptable. Requiring ongoing vasopressor support with Levophed. Acid-base balance largely corrected. Ileostomy is well perfused and functioning. Plan is to attempt to close the abdomen tomorrow. Blood sugar has twice dropped into the 20s when glucose containing IV solutions have all been stopped. Plan to start tube feeds when OK with surgical service. Please keep glucose containing solution running during operative procedures 12/29: Patient seen after OR. Abdomen closed, new J-tube in place. Ileostomy pink. Still requiring high-dose Levophed currently at 10 mcg/min. No hypoglycemia reported. For OR report is pending. Developed paroxysmal A. fib postop. Replace potassium and magnesium, give metoprolol as needed IV 12/30: Remains intubated sedated. Patient had episode of hypotension overnight. Currently still on vasopressin 0.04 IU. Hemoglobin is 7.1 I have ordered stat 1 unit PRBC. Remains on amiodarone currently sinus rhythm. Opens eyes to stimulation moves extremities purposefully 12/31: Remains on the vent, blood pressure has improved off vasopressin now. Grossly fluid positive approximately 25 KG. Showing generalized anasarca. Give IV Lasix 60 mg 1 and then 40 every 12 hours scheduled. Blood sugar remains low (72 am) despite D5 LR and tube feeds 01/01: Remains intubated currently off propofol only on fentanyl. Wakes up follows commands but remains weak lethargic. Urine output excellent with aggressive diuresis 6.2 L in 24 hours. D/W Dr. Aldrich 01/02: Patient was extubated yesterday tolerating well. Remains off pressors currently hypotensive. Atenolol was restarted yesterday. I will restart losartan and triamterene hydrochlorothiazide today. Son at the bedside updated he wants to continue intubation only. 01/03: Extubated and breathing comfortably. Protects airway well no obstructive noises. Nutritional status remains problematic and we are pushing adjunctive nutrition. 01/04: Excess water coming off nicely over the past 4 days and renal function remains on impaired. She is required 50% dextrose for hypoglycemia again and the etiology of this remains unclear. The suspicion is that her liver is not storing glycogen properly following her resuscitation from the shock state. I will start 10% dextrose this IV until this problem resolves. Will have to follow her caloric intake closely now that she is starting to feed. Moderate contraction alkalosis will require a carbonic anhydrase inhibitor for a day or 2. RECONSULT NOTE: reconsulted today 01/07 for hypotension, hypoglycemia by Dr. Aldrich's team. I know this patient well, as I admitted her to the ICU. in brief, elderly female s/p small bowel perforation and ileostomy placement. has been critically ill and ongoing issues are hypoglycemia. Over last few days, has been having high ostomy output and progressive SARA, hypotension. on my exam today, poor skin turgor and clinically appears very dehydrated. actively receiving NS bolus. patient denies complaints. of note, she is an "Alt code: intubation only/no cpr". ROS otherwise negative, no chest pain, sob, abd pain, n /v. 01/08: Copious ileostomy output continues. C. difficile PCR negative yesterday. Have converted enteral feedings to elemental product, vital 1.5, and attempted to pharmacologically slow down bowel transfer time. Prerenal azotemia persists but she is getting aggressively hydrated and electrolytes being actively corrected presently. Objective Vital Signs / I&O: Vital Signs 01/07/18 12:00 01/07/18 14:00 01/07/18 16:00 Temperature 98.1 F 98.0 F Pulse Rate 100 H 102 H 100 H Respiratory Rate 20 16 Blood Pressure 104/58 L 117/78 Pulse Oximetry 98 94 L 01/07/18 18:00 01/07/18 20:00 01/07/18 22:00 Temperature 97.6 F Pulse Rate 101 H 100 H 96 H Respiratory Rate 18 Blood Pressure 109/51 L Pulse Oximetry 93 L 01/08/18 00:00 01/08/18 02:00 01/08/18 04:00 Temperature 98.1 F 97.9 F Pulse Rate 96 H 102 H 90 Respiratory Rate 20 15 Blood Pressure 133/80 90/51 L Pulse Oximetry 94 L 92 L 01/08/18 06:00 01/08/18 09:26 Temperature Pulse Rate 96 H Respiratory Rate Blood Pressure Pulse Oximetry 95 Intake & Output 01/07/18 01/08/18 01/08/18 18:59 06:59 18:59 Intake Total 1350 / 1350 714 / 714 1500 / 1500 Output Total 2640 / 2640 350 / 350 Balance -1290 / -1290 364 / 364 1500 / 1500 Weight 62.4 kg Intake: IV 550 / 550 150 / 150 1500 / 1500 D5W/NS + KCL 20 mEq Inj 1,000 1000 / 1000 ML @ As Directed IV.CONT .Q0M JUANITA Rx#:[id number] Alburx 5% Inj 500 ML @ 250 mls/ 500 / 500 hr IV.SIG STAT STA Rx#:[id number] D10W Inj 500 ML @ 30 mls/hr IV. 500 / 500 SIG .[id number] JUANITA Rx#:[id number] Zosyn 3.375 GM Premix 50 ML @ 50 / 50 150 / 150 100 mls/hr IV.SIG Q6H JUANITA Rx#: [id number] Tube Feeding 600 / 600 564 / 564 Anesthesia Amount 200 / 200 Output: Urine 300 / 300 Emesis 0 / 0 Estimated Blood Loss 5 / 5 Urine Amount (Catheter) 275 / 275 350 / 350 Indwelling Urethral Catheter 275 / 275 350 / 350 Stool Amount (Stoma) 1999 Right Lower Abdomen 1999 Gastric Drainage 60 / 60 Left Upper Quadrant Gastrostomy 60 / 60 Tube (PEG) Other: # Voids 4 # Incontinent Voids 3 # Urine Diapers 4 Date of Last Bowel Movement 01/07/18 01/08/18 # Bowel Movements 0 # Incontinent Bowel Movements 1 Result Diagrams: 01/08/18 06:19 01/08/18 06:19 Objective Remarks: GENERAL: Weak, elderly female, on nasal cannula. No distress but still appears frail SKIN: Well-perfused, but fragile skin, poor skin turgor persists. HEENT: Nasal cannula. Airway patent, no obstructive noises. CARDIOVASCULAR: NSR regular rhythm. no edema. RESPIRATORY: Equal chest rise. unlabored. Mchugh are clear GASTROINTESTINAL: Abdomen closed, midline incision dressing intact. Ostomy with liquid output, brown in color. G-tube in place, tolerating tube elemental feeds MUSCULOSKELETAL: No obvious deformities. No clubbing or cyanosis. Limbs well perfused. NEUROLOGICAL: Lying in bed. Weak, protecting airway. Able to state a few words. Follows commands 4 limbs. Procedures: Laparotomy and bowel resection 12/24 Laparotomy and ileostomy formation 12/26 Intubation and mechanical ventilation Assessment and Plan - Problem List (1) Respiratory failure requiring intubation Code(s): J96.90 - Respiratory failure, unspecified, unspecified whether with hypoxia or hypercapnia Status: Acute (2) Septic shock Code(s): A41.9 - Sepsis, unspecified organism; R65.21 - Severe sepsis with septic shock Status: Acute (3) Hypoglycemia Code(s): E16.2 - Hypoglycemia, unspecified Status: Acute (4) Non-STEMI (non-ST elevated myocardial infarction) Code(s): I21.4 - Non-ST elevation (NSTEMI) myocardial infarction Status: Acute (5) Free intraperitoneal air Code(s): K66.8 - Other specified disorders of peritoneum Status: Resolved (6) Acute abdomen Code(s): R10.0 - Acute abdomen Status: Acute (7) Elevated lactic acid level Code(s): R79.89 - Other specified abnormal findings of blood chemistry Status : Acute (8) Ischemic bowel syndrome Code(s): K55.9 - Vascular disorder of intestine, unspecified Status: Acute - Assessment and Plan Plan: Assessment: 87yF with perforated small bowel now s/p emergent exploratory laparotomy, small bowel resection. Now complicated by acute dehydration, acute kidney injury, high ostomy output. Discussed with saloni Wolff: will send c. diff to rule out ileitis. replace ostomy output 1/2:1 with D5-NS+20kcl, change tube feeds to a higher calorie/carb from glucerna to vital. Plan by systems: Neurologic: Acute metabolic encephalopathy Minimize sedation minimize sedation Use as needed Tylenol and morphine for pain Respiratory: Acute hypoxic and hypercarbic respiratory failure-improving Bilateral pleural effusion Extubated yesterday 01/01/2018 tolerating well Head of bed elevated, Nebs Wean FiO2 for goal SPO2 greater than 90% Diuresis as below Cardiovascular: Septic shock resolved hypotensive: dehydration Paroxysmal A. fib with RVR-resolved Cannot anticoagulate for A. fib due to recent surgery, discontinued amiodarone IV digoxin 0.25 mg 1 given 12/29/2017 Keep magnesium more than 2.2, keep potassium more than 4 Tenormin restarted yesterday, restart losartan and discontinue triamterene/ hydrochlorothiazide today IV labetalol 20 mg every 2 hours as needed for SBP more than 160 d10w @ 30 for hypoglycemia replace ostomy output 1/2:1, hold diuretics Renal: Acute kidney injury-worsening again secondary to dehydration ivf as above. - Strict I/Os FEN/GI: Small bowel perforation Intra-abdominal sepsis Severe acute protein calorie malnutrition Hypocalcemia Hypomagnesemia High ostomy output s/p abdominal closure 12/30/17. Ileostomy pink, new G-tube in place. change tube feeds to vital 1.5 @ 60 for a more elemental formula replace ostomy output 1/2:1 Imodium send c. diff sample ICU electrolyte protocol Dr. Aldrich following Heme/ID: Anemia secondary to acute blood loss Septic shock-resolved Intra-abdominal sepsis-resolved Daily CBC Follow-up cultures-negative to date Endocrine: Hypoglycemia: persistent Hypomagnesemia Hypokalemia -cortisol level 11 - continue d10w and d5 replacements - change tube feeds to vital - check AM LFTs, coags to eval for liver function - serial accuchecks - d50w as needed. -Aggressive electrolyte replacement including magnesium and phosphate Prophylaxis: GI Prophylaxis PPI IV DVT Prophylaxis -SCDs Subcu heparin-hold immediate post op period due to anemia. Star today 01/02 with Lovenox 40 mg subcu daily Overall impression: This woman is critically ill with profound electrolyte and fluid losses. We are having a tough time keeping up with her nutritional demands at this point and will need to try to slow down her bowel transit time. She remains critically ill and we are having to stop some of her normal blood pressure control medications. Critical care time 40 minutes aside from invasive procedures.
[2018-01-08] MEDS: Potassium Chlor 20 mEq Premix 20 MEQ/100 ML PIGGYBACK IV.SIG PRN ×3 (11:00→14:47)
--- NOTE | 2018-01-08 11:22 | P.PNPAL ---
Reason for Visit Reason for visit: a. To assist with evaluation and management of symptoms including: pain; dyspnea; encephalopathy b. To assist medical decision maker(s) with: better understanding of current medical conditions; weighing benefits/burdens of medical treatment options; making medical treatment decisions. Subjective Subjective/Interval History: Follow-up medically necessary for further clarification of goals of care. Patient seen and examined in his room in the presence of a bedside RN and son Don. Patient is sleeping, easily arousable, very lethargic and appears frail. Patient not verbalizing at this time. Appears not in pain at this time. Patient is on room air with O2 sats in the low to mid 90s. Patient's hospital course complicated with hypotension, acute dehydration, acute kidney injury and high ostomy output. C. difficile PCR collected 01/07/18. Tube feeding changed from Glucerna to higher calorie/carb Vital. Laboratory workup today revealing sodium 141, potassium 2.7, BUN/creatinine 23/ 1.90, random glucose 129, calcium 8.2, total protein 6.7, albumin 1.8. Discussed with patient's son Don regarding complications that patient is facing at this time. Provided anticipatory guidance and expressed concern that patient may continue to have further complications. Inquired if patient's son has been involving patient in discussing her wishes. Patient`s son thinks his older brother might have talked to patient more regarding her wishes. Readdressed code status, discussed reintubation if patient continues to deteriorate or face further setbacks and possible complications that may lead to decisions regarding tracheostomy. Patient`s son agreeing that patient has showed decline in the past couple of days and that it is his intention to further discuss goals of medical treatment with his brother. Case discussed with bedside RN and physical therapist. Family/Friend Interactions: See interval note. . Advance Directives Living Will: Never completed Health Care Surrogate: Never completed Durable Power of [employer] Chief Scientist: Never completed Health Care Surrogate Name and Number: HCP: X2 Sons Documented care wishes:: No written documentation of health care goals/preferences . Objective Vital Signs: Vital Signs 01/07/18 12:00 01/07/18 14:00 01/07/18 16:00 Temperature 98.1 F 98.0 F Pulse Rate 100 H 102 H 100 H Respiratory Rate 20 16 Blood Pressure 104/58 L 117/78 Pulse Oximetry 98 94 L 01/07/18 18:00 01/07/18 20:00 01/07/18 22:00 Temperature 97.6 F Pulse Rate 101 H 100 H 96 H Respiratory Rate 18 Blood Pressure 109/51 L Pulse Oximetry 93 L 01/08/18 00:00 01/08/18 02:00 01/08/18 04:00 Temperature 98.1 F 97.9 F Pulse Rate 96 H 102 H 90 Respiratory Rate 20 15 Blood Pressure 133/80 90/51 L Pulse Oximetry 94 L 92 L 01/08/18 06:00 01/08/18 09:26 Temperature Pulse Rate 96 H Respiratory Rate Blood Pressure Pulse Oximetry 95 Intake & Output 01/07/18 01/08/18 01/08/18 18:59 06:59 18:59 Intake Total 1350 / 1350 714 / 714 1500 / 1500 Output Total 2640 / 2640 350 / 350 Balance -1290 / -1290 364 / 364 1500 / 1500 Weight 62.4 kg Intake: IV 550 / 550 150 / 150 1500 / 1500 D5W/NS + KCL 20 mEq Inj 1,000 1000 / 1000 ML @ As Directed IV.CONT .Q0M [facility] Rx#:[id number] Alburx 5% Inj 500 ML @ 250 mls/ 500 / 500 hr IV.SIG STAT STA Rx#:[id number] D10W Inj 500 ML @ 30 mls/hr IV. 500 / 500 SIG .[id number] [facility] Rx#:[id number] Zosyn 3.375 GM Premix 50 ML @ 50 / 50 150 / 150 100 mls/hr IV.SIG Q6H [facility] Rx#: [id number] Tube Feeding 600 / 600 564 / 564 Anesthesia Amount 200 / 200 Output: Urine 300 / 300 Emesis 0 / 0 Estimated Blood Loss 5 / 5 Urine Amount (Catheter) 275 / 275 350 / 350 Indwelling Urethral Catheter 275 / 275 350 / 350 Stool Amount (Stoma) 1999 Right Lower Abdomen 1999 Gastric Drainage 60 / 60 Left Upper Quadrant Gastrostomy 60 / 60 Tube (PEG) Other: # Voids 4 # Incontinent Voids 3 # Urine Diapers 4 Date of Last Bowel Movement 01/07/18 01/08/18 # Bowel Movements 0 # Incontinent Bowel Movements 1 Physical Exam: CONSTITUTIONAL/GENERAL: This is an adequately nourished patient, in no acute distress. TUBES/LINES/DRAINS: left subclavian central line; castillo catheter; Gastrostomy tube, SCDs. SKIN: No jaundice or lesions. Abdominal surgical wound covered with a primapore dressing. Skin temperature appropriate. Not diaphoretic. HEAD: Atraumatic. Normocephalic. EYES: PERRLA. No scleral icterus. No injection or drainage. Fundi not examined. ENT: Hearing normal. Nose without bleeding or purulent drainage. Moist oral mucosa. NECK: Trachea midline. CARDIOVASCULAR: s1, s2 normal-without murmurs, gallops, or rubs. No JVD. Peripheral pulses symmetric. RESPIRATORY/CHEST: Symmetric, unlabored respirations. Diminished breath sounds in the bases. No wheezes, rales, or rhonchi. GASTROINTESTINAL: Midline abdominal wound with dressing intact- Gastrostomy with TF infusing @ 50ml/hr.Active bowel sounds GENITOURINARY: Without palpable bladder distension. Castillo catheter in place. MUSCULOSKELETAL: Extremities without clubbing, cyanosis. Edema improving. SCDs in place. No mottling. NEUROLOGICAL: Sleeping, arousable-Lethargic. Did not verbalize during visit. Very weak. PSYCHIATRIC: No anxiety or obvious signs of depression. Calm. . Diagnostic Tests Laboratory: Laboratory Results - last 72 hr 01/05/18 01/05/18 01/05/18 15:22 15:23 16:00 WBC RBC Hgb Hct MCV MCH MCHC RDW Plt Count MPV Prelim Diff (Auto) Neut % (Auto) Lymph % (Auto) [place] % (Auto) Eos % (Auto) Baso % (Auto) Neut # (Auto) Lymph # (Auto) [place] # (Auto) Eos # (Auto) Baso # (Auto) WBC Differential Diff Scan Seg Neuts % (Manual) Band Neuts % (Manual) Lymphocytes % (Manual) Monocytes % (Manual) Basophils % (Manual) Abs Neuts (Manual) Differential Comment Platelet Estimate Platelet Morphology PT INR APTT Sodium Potassium Chloride Carbon Dioxide Anion Gap BUN Creatinine Estimated GFR POC Glucose 38 L* 47 L* 61 L Random Glucose Calcium Prot Corrected Calcium Phosphorus Magnesium Total Bilirubin Direct Bilirubin Indirect Bilirubin GGT AST ALT Alkaline Phosphatase Ammonia Total Protein Albumin Stl C.difficile Tox PCR St C. diff Tox Epid 027 01/05/18 01/05/18 01/05/18 16:00 16:22 16:24 WBC RBC Hgb Hct MCV MCH MCHC RDW Plt Count MPV Prelim Diff (Auto) Neut % (Auto) Lymph % (Auto) [place] % (Auto) Eos % (Auto) Baso % (Auto) Neut # (Auto) Lymph # (Auto) [place] # (Auto) Eos # (Auto) Baso # (Auto) WBC Differential Diff Scan Seg Neuts % (Manual) Band Neuts % (Manual) Lymphocytes % (Manual) Monocytes % (Manual) Basophils % (Manual) Abs Neuts (Manual) Differential Comment Platelet Estimate Platelet Morphology PT INR APTT Sodium Potassium Chloride Carbon Dioxide Anion Gap BUN Creatinine Estimated GFR POC Glucose 63 L 217 H 162 H Random Glucose Calcium Prot Corrected Calcium Phosphorus Magnesium Total Bilirubin Direct Bilirubin Indirect Bilirubin GGT AST ALT Alkaline Phosphatase Ammonia Total Protein Albumin Stl C.difficile Tox PCR St C. diff Tox Epid 027 01/05/18 01/06/18 01/06/18 18:31 00:09 00:45 WBC RBC Hgb Hct MCV MCH MCHC RDW Plt Count MPV Prelim Diff (Auto) Neut % (Auto) Lymph % (Auto) [place] % (Auto) Eos % (Auto) Baso % (Auto) Neut # (Auto) Lymph # (Auto) [place] # (Auto) Eos # (Auto) Baso # (Auto) WBC Differential Diff Scan Seg Neuts % (Manual) Band Neuts % (Manual) Lymphocytes % (Manual) Monocytes % (Manual) Basophils % (Manual) Abs Neuts (Manual) Differential Comment Platelet Estimate Platelet Morphology PT INR APTT Sodium Potassium Chloride Carbon Dioxide Anion Gap BUN Creatinine Estimated GFR POC Glucose 127 H 58 L 142 H Random Glucose Calcium Prot Corrected Calcium Phosphorus Magnesium Total Bilirubin Direct Bilirubin Indirect Bilirubin GGT AST ALT Alkaline Phosphatase Ammonia Total Protein Albumin Stl C.difficile Tox PCR St C. diff Tox Epid 027 01/06/18 01/06/18 01/06/18 05:32 06:14 06:14 WBC 4.8 RBC 2.95 L Hgb 9.8 L Hct 28.2 L MCV 95.4 D MCH 33.1 MCHC 34.7 RDW 15.8 Plt Count 183 MPV 10.6 Prelim Diff (Auto) Slide review pending Neut % (Auto) 67.3 Lymph % (Auto) 21.0 [place] % (Auto) 8.2 H Eos % (Auto) 2.4 Baso % (Auto) 1.1 Neut # (Auto) 3.2 Lymph # (Auto) 1.0 [place] # (Auto) 0.4 Eos # (Auto) 0.1 Baso # (Auto) 0.1 WBC Differential Manual diff final Diff Scan Seg Neuts % (Manual) 50 Band Neuts % (Manual) 21 H Lymphocytes % (Manual) 16 Monocytes % (Manual) 10 H Basophils % (Manual) 3 H Abs Neuts (Manual) 3.4 Differential Comment . Platelet Estimate Normal Platelet Morphology Enlarged H PT INR APTT Sodium 138 Potassium 2.9 L* Chloride 98 Carbon Dioxide 30.2 Anion Gap 10 BUN 19 H Creatinine 1.35 H Estimated GFR 45 L POC Glucose 105 Random Glucose 93 Calcium 7.5 L Prot Corrected Calcium Phosphorus 3.2 Magnesium 1.3 L Total Bilirubin Direct Bilirubin Indirect Bilirubin GGT AST ALT Alkaline Phosphatase Ammonia Total Protein Albumin Stl C.difficile Tox PCR St C. diff Tox Epid 027 01/06/18 01/06/18 01/06/18 06:14 12:10 12:12 WBC RBC Hgb Hct MCV MCH MCHC RDW Plt Count MPV Prelim Diff (Auto) Neut % (Auto) Lymph % (Auto) [place] % (Auto) Eos % (Auto) Baso % (Auto) Neut # (Auto) Lymph # (Auto) [place] # (Auto) Eos # (Auto) Baso # (Auto) WBC Differential Diff Scan Seg Neuts % (Manual) Band Neuts % (Manual) Lymphocytes % (Manual) Monocytes % (Manual) Basophils % (Manual) Abs Neuts (Manual) Differential Comment Platelet Estimate Platelet Morphology PT INR APTT Sodium Potassium Chloride Carbon Dioxide Anion Gap BUN Creatinine Estimated GFR POC Glucose 24 L* 29 L* Random Glucose Calcium 7.5 L Prot Corrected Calcium 8.3 L Phosphorus Magnesium Total Bilirubin Direct Bilirubin Indirect Bilirubin GGT AST ALT Alkaline Phosphatase Ammonia Total Protein 5.6 L Albumin Stl C.difficile Tox PCR St C. diff Tox Epid 027 01/06/18 01/06/18 01/06/18 12:53 12:54 12:54 WBC RBC Hgb Hct MCV MCH MCHC RDW Plt Count MPV Prelim Diff (Auto) Neut % (Auto) Lymph % (Auto) [place] % (Auto) Eos % (Auto) Baso % (Auto) Neut # (Auto) Lymph # (Auto) [place] # (Auto) Eos # (Auto) Baso # (Auto) WBC Differential Diff Scan Seg Neuts % (Manual) Band Neuts % (Manual) Lymphocytes % (Manual) Monocytes % (Manual) Basophils % (Manual) Abs Neuts (Manual) Differential Comment Platelet Estimate Platelet Morphology PT INR APTT Sodium Potassium Chloride Carbon Dioxide Anion Gap BUN Creatinine Estimated GFR POC Glucose 56 L 74 77 Random Glucose Calcium Prot Corrected Calcium Phosphorus Magnesium Total Bilirubin Direct Bilirubin Indirect Bilirubin GGT AST ALT Alkaline Phosphatase Ammonia Total Protein Albumin Stl C.difficile Tox PCR St C. diff Tox Epid 027 01/06/18 01/06/18 01/06/18 18:04 18:49 18:50 WBC RBC Hgb Hct MCV MCH MCHC RDW Plt Count MPV Prelim Diff (Auto) Neut % (Auto) Lymph % (Auto) [place] % (Auto) Eos % (Auto) Baso % (Auto) Neut # (Auto) Lymph # (Auto) [place] # (Auto) Eos # (Auto) Baso # (Auto) WBC Differential Diff Scan Seg Neuts % (Manual) Band Neuts % (Manual) Lymphocytes % (Manual) Monocytes % (Manual) Basophils % (Manual) Abs Neuts (Manual) Differential Comment Platelet Estimate Platelet Morphology PT INR APTT Sodium Potassium Chloride Carbon Dioxide Anion Gap BUN Creatinine Estimated GFR POC Glucose 50 L 36 L* 32 L* Random Glucose Calcium Prot Corrected Calcium Phosphorus Magnesium Total Bilirubin Direct Bilirubin Indirect Bilirubin GGT AST ALT Alkaline Phosphatase Ammonia Total Protein Albumin Stl C.difficile Tox PCR St C. diff Tox Epid 027 01/06/18 01/07/18 01/07/18 19:50 00:27 01:01 WBC RBC Hgb Hct MCV MCH MCHC RDW Plt Count MPV Prelim Diff (Auto) Neut % (Auto) Lymph % (Auto) [place] % (Auto) Eos % (Auto) Baso % (Auto) Neut # (Auto) Lymph # (Auto) [place] # (Auto) Eos # (Auto) Baso # (Auto) WBC Differential Diff Scan Seg Neuts % (Manual) Band Neuts % (Manual) Lymphocytes % (Manual) Monocytes % (Manual) Basophils % (Manual) Abs Neuts (Manual) Differential Comment Platelet Estimate Platelet Morphology PT INR APTT Sodium Potassium Chloride Carbon Dioxide Anion Gap BUN Creatinine Estimated GFR POC Glucose 68 55 L 82 Random Glucose Calcium Prot Corrected Calcium Phosphorus Magnesium Total Bilirubin Direct Bilirubin Indirect Bilirubin GGT AST ALT Alkaline Phosphatase Ammonia Total Protein Albumin Stl C.difficile Tox PCR St C. diff Tox Epid 027 01/07/18 01/07/18 01/07/18 06:23 06:45 06:45 WBC 5.7 RBC 2.73 L Hgb 10.2 L Hct 27.3 L MCV 100.0 D MCH 37.3 H MCHC 37.3 H RDW 16.0 Plt Count 209 MPV 10.6 Prelim Diff (Auto) Slide review pending Neut % (Auto) 63.9 Lymph % (Auto) 23.7 [place] % (Auto) 10.0 H Eos % (Auto) 1.2 Baso % (Auto) 1.2 Neut # (Auto) 3.6 Lymph # (Auto) 1.3 [place] # (Auto) 0.6 Eos # (Auto) 0.1 Baso # (Auto) 0.1 WBC Differential . Diff Scan Auto diff confirmed Seg Neuts % (Manual) Band Neuts % (Manual) Lymphocytes % (Manual) Monocytes % (Manual) Basophils % (Manual) Abs Neuts (Manual) Differential Comment . Platelet Estimate Normal Platelet Morphology Enlarged H PT INR APTT Sodium 138 Potassium 3.2 L Chloride 99 Carbon Dioxide 28.1 Anion Gap 11 BUN 20 H Creatinine 1.55 H Estimated GFR 38 L POC Glucose 68 Random Glucose 82 Calcium 7.9 L Prot Corrected Calcium Phosphorus 2.4 L Magnesium 1.3 L Total Bilirubin Direct Bilirubin Indirect Bilirubin GGT AST ALT Alkaline Phosphatase Ammonia Total Protein Albumin Stl C.difficile Tox PCR St C. diff Tox Epid 027 01/07/18 01/07/18 01/07/18 06:45 13:18 13:20 WBC RBC Hgb Hct MCV MCH MCHC RDW Plt Count MPV Prelim Diff (Auto) Neut % (Auto) Lymph % (Auto) [place] % (Auto) Eos % (Auto) Baso % (Auto) Neut # (Auto) Lymph # (Auto) [place] # (Auto) Eos # (Auto) Baso # (Auto) WBC Differential Diff Scan Seg Neuts % (Manual) Band Neuts % (Manual) Lymphocytes % (Manual) Monocytes % (Manual) Basophils % (Manual) Abs Neuts (Manual) Differential Comment Platelet Estimate Platelet Morphology PT INR APTT Sodium Potassium Cancelled Chloride Carbon Dioxide Anion Gap BUN Creatinine Estimated GFR POC Glucose 15 L* 33 L* Random Glucose Calcium Prot Corrected Calcium Phosphorus Magnesium Total Bilirubin Direct Bilirubin Indirect Bilirubin GGT AST ALT Alkaline Phosphatase Ammonia Total Protein Albumin Stl C.difficile Tox PCR St C. diff Tox Epid 027 01/07/18 01/07/18 01/07/18 13:49 15:08 17:00 WBC RBC Hgb Hct MCV MCH MCHC RDW Plt Count MPV Prelim Diff (Auto) Neut % (Auto) Lymph % (Auto) [place] % (Auto) Eos % (Auto) Baso % (Auto) Neut # (Auto) Lymph # (Auto) [place] # (Auto) Eos # (Auto) Baso # (Auto) WBC Differential Diff Scan Seg Neuts % (Manual) Band Neuts % (Manual) Lymphocytes % (Manual) Monocytes % (Manual) Basophils % (Manual) Abs Neuts (Manual) Differential Comment Platelet Estimate Platelet Morphology PT INR APTT Sodium Potassium Chloride Carbon Dioxide Anion Gap BUN Creatinine Estimated GFR POC Glucose 101 56 L Random Glucose Calcium Prot Corrected Calcium Phosphorus Magnesium Total Bilirubin Direct Bilirubin Indirect Bilirubin GGT AST ALT Alkaline Phosphatase Ammonia Total Protein Albumin Stl C.difficile Tox PCR Negative St C. diff Tox Epid 027 Negative 01/07/18 01/07/18 01/08/18 18:53 20:28 00:00 WBC RBC Hgb Hct MCV MCH MCHC RDW Plt Count MPV Prelim Diff (Auto) Neut % (Auto) Lymph % (Auto) [place] % (Auto) Eos % (Auto) Baso % (Auto) Neut # (Auto) Lymph # (Auto) [place] # (Auto) Eos # (Auto) Baso # (Auto) WBC Differential Diff Scan Seg Neuts % (Manual) Band Neuts % (Manual) Lymphocytes % (Manual) Monocytes % (Manual) Basophils % (Manual) Abs Neuts (Manual) Differential Comment Platelet Estimate Platelet Morphology PT INR APTT Sodium Potassium Chloride Carbon Dioxide Anion Gap BUN Creatinine Estimated GFR POC Glucose 62 L 119 H 27 L* Random Glucose Calcium Prot Corrected Calcium Phosphorus Magnesium Total Bilirubin Direct Bilirubin Indirect Bilirubin GGT AST ALT Alkaline Phosphatase Ammonia Total Protein Albumin Stl C.difficile Tox PCR St C. diff Tox Epid 027 01/08/18 01/08/18 01/08/18 03:05 05:50 06:19 WBC RBC Hgb Hct MCV MCH MCHC RDW Plt Count MPV Prelim Diff (Auto) Neut % (Auto) Lymph % (Auto) [place] % (Auto) Eos % (Auto) Baso % (Auto) Neut # (Auto) Lymph # (Auto) [place] # (Auto) Eos # (Auto) Baso # (Auto) WBC Differential Diff Scan Seg Neuts % (Manual) Band Neuts % (Manual) Lymphocytes % (Manual) Monocytes % (Manual) Basophils % (Manual) Abs Neuts (Manual) Differential Comment Platelet Estimate Platelet Morphology PT INR APTT Sodium 141 Potassium 2.7 L* Chloride 97 L Carbon Dioxide 34.9 H Anion Gap 9 BUN 23 H Creatinine 1.90 H Estimated GFR 30 L POC Glucose 104 81 Random Glucose 129 H Calcium 8.2 L Prot Corrected Calcium Phosphorus 2.1 L Magnesium 1.3 L Total Bilirubin 0.4 Direct Bilirubin 0.3 H Indirect Bilirubin 0.1 GGT 177 H AST 34 ALT 24 Alkaline Phosphatase 239 H Ammonia Total Protein 6.7 D Albumin 1.8 L Stl C.difficile Tox PCR St C. diff Tox Epid 027 01/08/18 01/08/18 01/08/18 06:19 06:19 06:19 WBC 6.6 RBC 2.91 L Hgb 10.0 L Hct 28.3 L MCV 97.5 MCH 34.6 H MCHC 35.4 RDW 16.1 Plt Count 295 D MPV 10.4 Prelim Diff (Auto) Neut % (Auto) 64.4 Lymph % (Auto) 23.3 [place] % (Auto) 10.5 H Eos % (Auto) 0.8 Baso % (Auto) 1.0 Neut # (Auto) 4.2 Lymph # (Auto) 1.5 [place] # (Auto) 0.7 Eos # (Auto) 0.1 Baso # (Auto) 0.1 WBC Differential . Diff Scan Seg Neuts % (Manual) Band Neuts % (Manual) Lymphocytes % (Manual) Monocytes % (Manual) Basophils % (Manual) Abs Neuts (Manual) Differential Comment Auto diff final Platelet Estimate Platelet Morphology PT 20.9 H INR 2.1 APTT 36.4 H Sodium Potassium Chloride Carbon Dioxide Anion Gap BUN Creatinine Estimated GFR POC Glucose Random Glucose Calcium Prot Corrected Calcium Phosphorus Magnesium Total Bilirubin Direct Bilirubin Indirect Bilirubin GGT AST ALT Alkaline Phosphatase Ammonia 23 Total Protein Albumin Stl C.difficile Tox PCR St C. diff Tox Epid 027 01/08/18 01/08/18 08:08 10:44 WBC RBC Hgb Hct MCV MCH MCHC RDW Plt Count MPV Prelim Diff (Auto) Neut % (Auto) Lymph % (Auto) [place] % (Auto) Eos % (Auto) Baso % (Auto) Neut # (Auto) Lymph # (Auto) [place] # (Auto) Eos # (Auto) Baso # (Auto) WBC Differential Diff Scan Seg Neuts % (Manual) Band Neuts % (Manual) Lymphocytes % (Manual) Monocytes % (Manual) Basophils % (Manual) Abs Neuts (Manual) Differential Comment Platelet Estimate Platelet Morphology PT INR APTT Sodium Potassium Chloride Carbon Dioxide Anion Gap BUN Creatinine Estimated GFR POC Glucose 73 71 Random Glucose Calcium Prot Corrected Calcium Phosphorus Magnesium Total Bilirubin Direct Bilirubin Indirect Bilirubin GGT AST ALT Alkaline Phosphatase Ammonia Total Protein Albumin Stl C.difficile Tox PCR St C. diff Tox Epid 027 Result Diagrams: 01/08/18 06:19 01/08/18 06:19 Imaging: Abdomen X-Ray 12/24/17 00:00 CONCLUSION: Dilated small bowel with collapse of the colon most characteristic of small bowel obstructive process. Calcific atherosclerotic vascular disease Abdomen/Pelvis CT 12/24/17 00:00 CONCLUSION: 1. Small to moderate amount of free air of concern for ruptured viscus. 2. Abnormal bowel gas pattern with dilated loops of small bowel and air-fluid levels most characteristic of a small bowel obstruction. 3. Moderate diverticulosis present. These findings were called to Dr. Aldrich at 1839 hours. Chest X-Ray 01/02/18 06:00 CONCLUSION: No significant change. Procedures: Intubation/mechanical ventilation Left subclavian central line placement Right radial arterial line placement Exploratory lap --> resection of terminal ileum/appendectomy 12/26/17: Removal of temporary abdominal closure device, abdominal exploration, small bowel resection, resection of cecum and terminal ileum, primary anastomosis of ileum to ascending colon, which the tissue was compromised and the anastomosis failed, resection of anastomosis, placement of ileostomy, cholecystectomy and placement of temporary abdominal closure device. 01/01/2018: Medically extubated . Assessment and Plan - Disease Oriented Problem List (1) Ischemic bowel syndrome (2) Septic shock (3) Sepsis (4) Anemia (5) Hypoalbuminemia - Symptom Scale (1) Pain 0-10 Scale: Unable to quantify (2) Dyspnea 0-10 Scale: Unable to quantify (3) Encephalopathy 0-10 Scale: Unable to quantify Comment: Improving. Medically extubated 01/01/18. oriented to self, place and partially situation. Pertinent Non-Medical Issues: Psychosocial: Originally from [place]. Moved to [place] permanently around 1991. High school graduate. [place] medical social [place] [facility] [place] Two sons -- Yves and Don -- live locally and check in on her frequently. Spiritual: Orthodoxy and spirituality have not played a large role in her life. She does not belong to any local max group. She does pray, however. Legal: No known advanced directive. Without a designated healthcare surrogate, her sons would be the joint proxy healthcare decision makers. Ethical issues impacting care: None identified at this time Important Contacts: Don Johnson (son and co-proxy) [phone] Yves Johnson (son and co-proxy) [phone] . Prognosis: Ms. Johnson is critically ill. She was in remarkably good shape for her age until about 2-3 weeks ago when her GI problems began, but she has gone into major surgery undernourished and post-operatively she is now hypotensive, bradycardic , and hypothermic. She is scheduled for additional surgery on 12/26/17. In spite of her relatively high level of functioning just weeks ago, she remains an grave risk of not surviving the hospitalization. Should she survive, the odds are that she would not get home again and would be either in a nursing facility or the hospital until her . At such time that patient or family feels that comfort measures only would be most in line with her goals, she would be eligible for hospice services. . Code Status: Alternative Code (No chest compressions, No shock) Plan: == Code Status: Alternative Code- No chest compressions, No shock. == Goals of medical treatment: Aggressive short of CPR and shock. Discussed with patient's son Don regarding complications that patient is facing at this time. Provided anticipatory guidance and expressed concern that patient may continue to have further complications.Readdressed code status, discussed reintubation if patient continues to deteriorate or face further setbacks and possible complications that may lead to decisions regarding tracheostomy. Patient`s son agreeing that patient has showed decline in the past couple of days and that it is his intention to further discuss goals of medical treatment with his brother. == Medical Decision making: There is no known written designation of healthcare surrogate. Patient is very lethargic, not verbalizing much and does not appear capable of participating in decision making at this time. Per [place] statutes hierarchy, proxy medical decision making would fall jointly to her two sons--Don and Yevs. == Symptoms * Pain: There were no known prehospitalization pain syndromes. Current sources of pain include her recent abdominal surgery; orotracheal and nasogastric intubations; vascular access lines; prolonged bedbound status; Castillo catheter. prn Morphine sulfate and Acetaminophen available. Pain most likely adequately addressed. No further recommendations at this time. * Dyspnea: No known underlying lung disease. Patient is on room air with O2 sats in the low to mid 90s. No acute signs of respiratory distress. Continue to monitor for respiratory distress. * Encephalopathy: No known underlying dementia. Encephalopathy is probably multifactorial with sepsis playing a large role. Patient medically extubated today. Patient is very lethargic today-did not verbalize during visit. Continue to monitor. == At anytime goals of care should transition to "comfort measures only," patient would be eligible for hospice services. == Palliative care will continue to follow to assist with symptom management and to further clarify goals of medical treatment as the clinical course evolves. . Attestation Attestation: To help prompt me to consider important information that might be impacting today's encounter and assessment, information from prior notes written by myself or my colleagues may have been "brought forward" into today's note. My signature on this note, however, is an attestation that I personally performed the exam, history, and/or decision-making noted today, and, unless otherwise indicated, the interactions with patient, family, and staff as well as the review of records all occurred today. I also attest that the listed assessment and stated plan reflect my best clinical judgment today based on the combination of historical information, prior notes, and today's exam/ interactions. When time spent is documented, it refers only to time spent today by the signer, or if indicated, combined time spent today by collaborating physician/nurse practitioner.
[2018-01-08] MEDS ORDERED: Magnesium Sulfate Inj 2 GM in Sodium Chlor 0.9% Inj 96 ML IV.SIG ONE (11:30)
--- NOTE | 2018-01-08 11:36 | P.DIET ---
Nutritional Evaluation Type of nutrition evaluation: follow-up Nutrition consult regarding: Tube Feeding Nutrition screening: [facility] [place] (TPN/PPN from 12/24) Screening comments: 01/05/18 [facility] [place] CALORIE COUNTING Calorie count cancelled d/t change in status. Objective - Diagnosis Generalized Weakness, Hypomagnesemia - Objective % IBW: 120 (IBW = 125#) Body Weight Used for Calculations: Actual (68.3 kg) Energy Needs - Lower Range (kCal/kg): 25 Energy Needs - Upper Range (kCal/kg): 30 Lower Limit kCal/kg (kCals): 1,708 Upper Limit kCal/kg (kCals): 2,049 Lower Limit Protein Factor (Grams per Kg): 1.0 Upper Limit Protein Factor (Grams per Kg): 1.5 Lower Protein Needs (Protein): 68 Upper Protein Needs (Protein): 102 Dietitian Reviewed in Medical Record: Curent medications, Intake & Output, Labs , Medical history, Tube feeding Diet Order: Pureed honey thickened liquids Speech Therapy Recommendations: Yes (npo (01/07)) Objective Comments: PMH Includes: GERD, high cholesterol, HTN Integumentary: right coccyx pressure injury; left coccyx pressure injury, posterior coccyx pressure injury 12/24 resection of small bowel with open packing 12/26 wound vac change, bowel resection, cecum resection, ileostomy, cholecystectomy 12/29 G-tube placement, closure of abdomen 01/02 Extubated Assessment Assessment: Pt continues at nutritional risk r/t clinical status. Extubated 01/02. Diet was advanced for a short time but pt was transferred back to [facility] and became npo again on 01/07 d/t a change in status. TF order is Vital 1.5 @ 60 mls/hr and this will adequately meet needs by providing 2160 kcals, 97 gms protien and 1100 mls of freee water. CBW = 62.4 kg. Recommendations: Vital 1.5 @ 60 mls/hr goal Dietitian to Monitor: Lab values, Intake & Output, Tube feeding tolerance, Weight change, Wound/skin status, Swallow recommendations, Medical course
[2018-01-08] MEDS ORDERED: Potassium Phosphate Inj 30 MMOL in Sodium Chlor 0.9% Inj 250 ML IV.SIG ONE (12:00)
--- NOTE | 2018-01-08 14:26 | P.PNWCN ---
Wound Care Nurse Consult Description: Consult for New Ostomy Teaching ileostomy per MINGO Wolff Communicated with: MINGO Wolff Patient Recommendation: Empty pouch of effluent when 1/3-1/2 full Change appliance every 3 days and PRN for leaks PLEASE DO NOT REINFORCE WAFER WITH TAPE, IF LEAKING PLEASE REMOVE AND REPLACE Additional information: Patient seen on for ostomy assessment. No teaching done at this time. Bowel Diversion Stoma - Bowel Stoma Right Lower Abdomen Stoma Appearance: Protruding, Round (red, moist, functioning) Collection Device: Two-piece Drainage Description: Liquid (yellow) Wafer Size: 2 1/4 Moldable (although only size available on unit was 2 3/4" which was used with eleanor seal)
--- NOTE | 2018-01-08 14:35 | P.PNGS ---
Subjective Interval history: DAILY PROGRESS NOTE FOR SURGICAL ATTENDING, DR. ROYA ALDRICH Resting in bed Less lethargic than yesterday Physical Exam Vital signs: Vital Signs 01/07/18 16:00 01/07/18 18:00 01/07/18 20:00 Temperature 98.0 F 97.6 F Pulse Rate 100 H 101 H 100 H Respiratory Rate 16 18 Blood Pressure 117/78 109/51 L Pulse Oximetry 94 L 93 L 01/07/18 22:00 01/08/18 00:00 01/08/18 02:00 Temperature 98.1 F Pulse Rate 96 H 96 H 102 H Respiratory Rate 20 Blood Pressure 133/80 Pulse Oximetry 94 L 01/08/18 04:00 01/08/18 06:00 01/08/18 08:00 Temperature 97.9 F Pulse Rate 90 96 H 83 Respiratory Rate 15 Blood Pressure 90/51 L Pulse Oximetry 92 L 01/08/18 09:26 01/08/18 10:00 01/08/18 12:00 Temperature Pulse Rate 86 87 Respiratory Rate Blood Pressure Pulse Oximetry 95 01/08/18 14:00 Temperature Pulse Rate 96 H Respiratory Rate Blood Pressure Pulse Oximetry Intake & Output 01/07/18 01/08/18 01/08/18 18:59 06:59 18:59 Intake Total 1350 / 1350 714 / 714 1650 / 1650 Output Total 2640 / 2640 350 / 350 Balance -1290 / -1290 364 / 364 1650 / 1650 Weight 62.4 kg Intake: IV 550 / 550 150 / 150 1650 / 1650 D5W/NS + KCL 20 mEq Inj 1,000 1000 / 1000 ML @ As Directed IV.CONT .Q0M JUANITA Rx#:[id number] Alburx 5% Inj 500 ML @ 250 mls/ 500 / 500 hr IV.SIG STAT STA Rx#:[id number] D10W Inj 500 ML @ 30 mls/hr IV. 500 / 500 SIG .[id number] JUANITA Rx#:[id number] Zosyn 3.375 GM Premix 50 ML @ 50 / 50 150 / 150 50 / 50 100 mls/hr IV.SIG Q6H JUANITA Rx#: [id number] KCl 20 mEq Premix Inj 20 meq In 100 / 100 100 ml @ 50 mls/hr IV.SIG Q2H PRN Rx#:[id number] Tube Feeding 600 / 600 564 / 564 Anesthesia Amount 200 / 200 Output: Urine 300 / 300 Emesis 0 / 0 Estimated Blood Loss 5 / 5 Urine Amount (Catheter) 275 / 275 350 / 350 Indwelling Urethral Catheter 275 / 275 350 / 350 Stool Amount (Stoma) 1999 Right Lower Abdomen 1999 Gastric Drainage 60 / 60 Left Upper Quadrant Gastrostomy 60 / 60 Tube (PEG) Other: # Voids 4 # Incontinent Voids 3 # Urine Diapers 4 Date of Last Bowel Movement 01/07/18 01/08/18 # Bowel Movements 0 # Incontinent Bowel Movements 1 Narrative: Alert and awake Abd: soft; ileostomy in place with pink stoma; liquid stool; midline incision in place with lennie; G tube with TF Moderate generalized edema - Urinary Catheter Management Indwelling Urethral Catheter Cath placed during this visit: yes Reason for continuing: Hourly intake/output Insertion date: 12/24/17 Insertion time: 20:15 Results - Labs 01/11/18 21:00 01/11/18 21:00 Laboratory Results - last 24 hr 09/26/18 09/26/18 09/26/18 15:08 17:00 18:53 WBC RBC Hgb Hct MCV MCH MCHC RDW Plt Count MPV Neut % (Auto) Lymph % (Auto) [place] % (Auto) Eos % (Auto) Baso % (Auto) Neut # (Auto) Lymph # (Auto) [place] # (Auto) Eos # (Auto) Baso # (Auto) WBC Differential Differential Comment PT INR APTT Sodium Potassium Chloride Carbon Dioxide Anion Gap BUN Creatinine Estimated GFR POC Glucose 56 L 62 L Random Glucose Calcium Phosphorus Magnesium Total Bilirubin Direct Bilirubin Indirect Bilirubin GGT AST ALT Alkaline Phosphatase Ammonia Total Protein Albumin Stl C.difficile Tox PCR Negative St C. diff Tox Epid 027 Negative 01/07/18 01/08/18 01/08/18 20:28 00:00 03:05 WBC RBC Hgb Hct MCV MCH MCHC RDW Plt Count MPV Neut % (Auto) Lymph % (Auto) [place] % (Auto) Eos % (Auto) Baso % (Auto) Neut # (Auto) Lymph # (Auto) [place] # (Auto) Eos # (Auto) Baso # (Auto) WBC Differential Differential Comment PT INR APTT Sodium Potassium Chloride Carbon Dioxide Anion Gap BUN Creatinine Estimated GFR POC Glucose 119 H 27 L* 104 Random Glucose Calcium Phosphorus Magnesium Total Bilirubin Direct Bilirubin Indirect Bilirubin GGT AST ALT Alkaline Phosphatase Ammonia Total Protein Albumin Stl C.difficile Tox PCR St C. diff Tox Epid 027 01/08/18 01/08/18 01/08/18 05:50 06:19 06:19 WBC 6.6 RBC 2.91 L Hgb 10.0 L Hct 28.3 L MCV 97.5 MCH 34.6 H MCHC 35.4 RDW 16.1 Plt Count 295 D MPV 10.4 Neut % (Auto) 64.4 Lymph % (Auto) 23.3 [place] % (Auto) 10.5 H Eos % (Auto) 0.8 Baso % (Auto) 1.0 Neut # (Auto) 4.2 Lymph # (Auto) 1.5 [place] # (Auto) 0.7 Eos # (Auto) 0.1 Baso # (Auto) 0.1 WBC Differential . Differential Comment Auto diff final PT INR APTT Sodium 141 Potassium 2.7 L* Chloride 97 L Carbon Dioxide 34.9 H Anion Gap 9 BUN 23 H Creatinine 1.90 H Estimated GFR 30 L POC Glucose 81 Random Glucose 129 H Calcium 8.2 L Phosphorus 2.1 L Magnesium 1.3 L Total Bilirubin 0.4 Direct Bilirubin 0.3 H Indirect Bilirubin 0.1 GGT 177 H AST 34 ALT 24 Alkaline Phosphatase 239 H Ammonia Total Protein 6.7 D Albumin 1.8 L Stl C.difficile Tox PCR St C. diff Tox Epid 027 01/08/18 01/08/18 01/08/18 06:19 06:19 08:08 WBC RBC Hgb Hct MCV MCH MCHC RDW Plt Count MPV Neut % (Auto) Lymph % (Auto) [place] % (Auto) Eos % (Auto) Baso % (Auto) Neut # (Auto) Lymph # (Auto) [place] # (Auto) Eos # (Auto) Baso # (Auto) WBC Differential Differential Comment PT 20.9 H INR 2.1 APTT 36.4 H Sodium Potassium Chloride Carbon Dioxide Anion Gap BUN Creatinine Estimated GFR POC Glucose 73 Random Glucose Calcium Phosphorus Magnesium Total Bilirubin Direct Bilirubin Indirect Bilirubin GGT AST ALT Alkaline Phosphatase Ammonia 23 Total Protein Albumin Stl C.difficile Tox PCR St C. diff Tox Epid 027 01/08/18 01/08/18 01/08/18 10:44 13:16 13:49 WBC RBC Hgb Hct MCV MCH MCHC RDW Plt Count MPV Neut % (Auto) Lymph % (Auto) [place] % (Auto) Eos % (Auto) Baso % (Auto) Neut # (Auto) Lymph # (Auto) [place] # (Auto) Eos # (Auto) Baso # (Auto) WBC Differential Differential Comment PT INR APTT Sodium Potassium Chloride Carbon Dioxide Anion Gap BUN Creatinine Estimated GFR POC Glucose 71 50 L 109 Random Glucose Calcium Phosphorus Magnesium Total Bilirubin Direct Bilirubin Indirect Bilirubin GGT AST ALT Alkaline Phosphatase Ammonia Total Protein Albumin Stl C.difficile Tox PCR St C. diff Tox Epid 027 - Imaging Imaging: ITS Impressions Abdomen X-Ray 12/24/17 00:00 CONCLUSION: Dilated small bowel with collapse of the colon most characteristic of small bowel obstructive process. Calcific atherosclerotic vascular disease Abdomen/Pelvis CT 12/24/17 00:00 CONCLUSION: 1. Small to moderate amount of free air of concern for ruptured viscus. 2. Abnormal bowel gas pattern with dilated loops of small bowel and air-fluid levels most characteristic of a small bowel obstruction. 3. Moderate diverticulosis present. These findings were called to Dr. Aldrich at 1839 hours. Chest X-Ray 09/21/18 06:00 CONCLUSION: No significant change. Assessment and Plan - Assessment (1) Gastrostomy in place Code(s): Z93.1 - Status: Acute (2) Ileostomy in place Code(s): Z93.2 - Status: Acute Plan: 87 year old female s/p lap converted to ex lap; resection of nonviable small bowel; ileostomy. -CCM following---patient is hypotensive and hypoglycemic -Continue replacing GI losses with IVF -Continue TF as tolerated -Continue frequent checks of blood glucose -C diff negative -Palliative Care following -PT -Continue ileostomy care and teaching---Discussed with HARPAL Hair -Discussed with Saritha and Lilian ROWAN (3) History of esophageal reflux Code(s): Z87.19 - Status: Chronic - Attending Attestation NOTE FOR SURGICAL ATTENDING, DR. ROYA ALDRICH I agree with above assessment and plan. The exam, history, and the medical decision-making described in the above note were completed with the assistance of the mid-level provider. I reviewed and agree with the findings presented. I attest that I had a [id number] encounter with the patient on the same day, and personally performed and documented my assessment and findings in the medical record. The following services were provided during this hospital visit: Chart data review, vital sign assessments/reviewing monitor data Review of consultations notes if present. Medication orders/review and/or management Ordering and/or reviewing lab tests Ordering and/or interpreting/reviewing x-rays and/or diagnostic studies Care of the patient and discussion of the patient with the care team Documentation time To help prompt me to consider important information that might be impacting today's encounter and assessment, Information from prior notes written by myself or my colleagues may have been "brought forward/copy and pasted" into today's note.
[2018-01-08] MEDS ORDERED: Sod Chloride 0.9% Inj 1,000 ML IV.SIG SCH (16:00)
[2018-01-08] MEDS: KCL 40 mEq/D5W/NaCl 0.9% Inj 1,000 ML IV.CONT SCH ×2 (16:01→18:08)
--- NOTE | 2018-01-08 16:03 | P.PCN ---
Procedure: Diagnosis: Severe sepsis Procedure: Insertion right internal jugular central venous line Narrative: Timeout performed and patient properly identified. The right chest and neck were prepped and draped. 1% Xylocaine infiltration anesthetic was used under the right clavicle and in the anterior triangle of the neck. The patient was placed in steep Trendelenburg position. The right subclavian vein was approached under the right clavicle in the usual fashion. It could not be cannulated. Ultrasound was then used in the right anterior neck where the internal jugular vein was found to be flat while in steep Trendelenburg position. The vein lay anterior to the common carotid artery. The neck had already been infiltrated with 1% Xylocaine. Using a thin-walled needle the right internal jugular vein was carefully cannulated and a wire advanced to the right atrium. Ventricular ectopy was identified once for 2 beats. A dilator was then passed and the triple-lumen catheter was delivered over the wire to a distance of 18 cm. All 3 lm were aspirated and flushed. The line was attached to the neck using a StatLock device. Sterile dressing was applied while the patient was still draped. Chest x-ray was ordered will review.
--- NOTE | 2018-01-08 17:01 | XR ---
EXAM DATE: 01/08/2018 12:00 AM EDT AGE/SEX: 87 years / Female INDICATIONS: Evaluate left side central line placement. CLINICAL DATA: This is the patient's initial encounter. Patient reports that signs and symptoms have been present for 1 day and indicates a pain score of 0/10. MEDICAL/SURGICAL HISTORY: . Gastroesophageal reflux disease. Hypertension None. [place] [facility] [place]2018. . FINDINGS: There is a right central venous catheter in good position. The catheter on the left side has been rem tiff. There is no pneumothorax. The heart is enlarged. There are bilateral effusions. The osseous str uctures are intact. CONCLUSION: Central venous catheter in good position. No pneumothorax identified. Electronically signed by: Leonidas Orta MD 01/08/2018 5:00 PM EDT
[2018-01-09] MEDS: Dextrose 10% in Water Inj 500 ML IV.SIG SCH ×4 (00:50→21:00)
[2018-01-09] MEDS: Oral Hygiene Kit OROPHARYNG SCH ×5 (00:50→23:36)
[2018-01-09] MEDS: Piperacil/Tazo 3.375 GM Premix 50 ML IV.SIG SCH ×5 (00:51→23:36)
[2018-01-09] MEDS: KCL 40 mEq/D5W/NaCl 0.9% Inj 1,000 ML IV.CONT SCH ×4 (00:51→20:59)
[2018-01-09] MEDS: KCL 20 mEq/D5W/NaCl 0.9% Inj 1,000 ML IV.CONT SCH ×2 (00:52→21:01)
[2018-01-09 06:08] LABS: Baso # (Auto) 0.1 th/mm3 (0.0-0.2); Baso % (Auto) 1.8 % (0.0-2.0); Eos # (Auto) 0.2 th/mm3 (0.0-0.4); Eos % (Auto) 2.5 % (0.0-4.0); Hematocrit 24.9 % (35.0-46.0); Hemoglobin 8.1 gm/dL (11.6-15.3); Lymph # (Auto) 1.2 th/mm3 (1.0-4.8); Lymph % (Auto) 20.2 % (9.0-44.0); Mean Corpuscular HGB Conc 32.7 % (32.0-36.0); Mean Corpuscular Hemoglobin 30.4 pg (27.0-34.0); Mean Corpuscular Volume 92.9 fL (80.0-100.0); Mean Platelet Volume 9.9 fL (7.0-11.0); Mono # (Auto) 0.7 th/mm3 (0.0-0.9); Mono % (Auto) 11.3 % (0.0-8.0); Neut # (Auto) 3.9 th/mm3 (1.8-7.7); Neut % (Auto) 64.2 % (16.0-70.0); Platelet Count 319 th/mm3 (150-450); Red Blood Count 2.68 mil/mm3 (4.00-5.30); Red Cell Distribution Width 15.9 % (11.6-17.2); White Blood Count 6.2 th/mm3 (4.0-11.0)
[2018-01-09 06:41] LABS: Carbon Dioxide 28.2 meq/L (21.0-32.0); Magnesium 1.7 mg/dL (1.5-2.5); Phosphorus 3.4 mg/dL (2.5-4.9); Potassium 4.5 meq/L (3.5-5.1)
[2018-01-09 06:53] LABS: Total Protein 5.8 g/dL (6.4-8.2)
[2018-01-09] MEDS: Atenolol 50 MG Tablet PO SCH ×2 (08:24→20:19)
[2018-01-09] MEDS: Enoxaparin Inj 40 MG/0.4 ML Syringe SQ SCH (08:24)
[2018-01-09] MEDS: Chlorhexidine 0.12% Oral Kit 15 ML UDC OROPHARYNG SCH ×2 (08:24→20:19)
[2018-01-09] MEDS: Potassium Chloride 25 MEQ Effervescent Tablet NG/OG SCH ×2 (08:25→20:19)
[2018-01-09] MEDS: Loperamide Liq 2 MG/10 ML UDC G-TUBE SCH ×2 (09:27→17:36)
--- NOTE | 2018-01-09 13:11 | P.PNCC ---
Subjective Subjective Remarks/Hospital Course: 87yF originally admitted for abdominal pain and now found to have perforated hollow viscus with intra-abdominal free air. taken to OR emergently by Dr. Aldrich for exploratory laparotomy where they found small bowel perforation. small bowel was resected and due to significantly poor patient tissue and gross contamination of the field, patient was left in discontinuity with an open abdomen. arrives to the ICU intubated, critically ill, on vasopressors, in shock. sedated. no additional information is available from the patient; ROS unobtainable. 12/25: She remains oliguric and septic. We are unable to separate her from mechanical ventilation and are still correcting her metabolic acidosis. Pre- albumin of 5 implicates poor preoperative nutrition. Description of bowel from surgery lens support for a severely debilitated state prior to surgery. She is presently hemodynamically unstable and oliguric. 12/26: Magnesium, phosphate, potassium all low; presently being replaced. Persistent septic pattern. Scheduled for second look operation later today, anticipate discouraging findings. Acid-base balance acceptable in gas exchange good. Update: Back from OR. Well perfused. Clear lungs. Base -6. Urine acceptable. 12/27: Back from surgery yesterday with end ileostomy fashioned. Abdomen remains open with VAC dressing in place. Acid-base balance modestly improved and acceptable. Urine output acceptable and renal function remains close to normal. She remains hemodynamically unstable and rate wiring levo fed at 9 mcg/ min; typical of the smoldering septic picture. 12/28: Renal function remains acceptable. Requiring ongoing vasopressor support with Levophed. Acid-base balance largely corrected. Ileostomy is well perfused and functioning. Plan is to attempt to close the abdomen tomorrow. Blood sugar has twice dropped into the 20s when glucose containing IV solutions have all been stopped. Plan to start tube feeds when OK with surgical service. Please keep glucose containing solution running during operative procedures 12/29: Patient seen after OR. Abdomen closed, new J-tube in place. Ileostomy pink. Still requiring high-dose Levophed currently at 10 mcg/min. No hypoglycemia reported. For OR report is pending. Developed paroxysmal A. fib postop. Replace potassium and magnesium, give metoprolol as needed IV 12/30: Remains intubated sedated. Patient had episode of hypotension overnight. Currently still on vasopressin 0.04 IU. Hemoglobin is 7.1 I have ordered stat 1 unit PRBC. Remains on amiodarone currently sinus rhythm. Opens eyes to stimulation moves extremities purposefully 12/31: Remains on the vent, blood pressure has improved off vasopressin now. Grossly fluid positive approximately 25 KG. Showing generalized anasarca. Give IV Lasix 60 mg 1 and then 40 every 12 hours scheduled. Blood sugar remains low (72 am) despite D5 LR and tube feeds 01/01: Remains intubated currently off propofol only on fentanyl. Wakes up follows commands but remains weak lethargic. Urine output excellent with aggressive diuresis 6.2 L in 24 hours. D/W Dr. Aldrich 01/02: Patient was extubated yesterday tolerating well. Remains off pressors currently hypotensive. Atenolol was restarted yesterday. I will restart losartan and triamterene hydrochlorothiazide today. Son at the bedside updated he wants to continue intubation only. 01/03: Extubated and breathing comfortably. Protects airway well no obstructive noises. Nutritional status remains problematic and we are pushing adjunctive nutrition. 01/04: Excess water coming off nicely over the past 4 days and renal function remains on impaired. She is required 50% dextrose for hypoglycemia again and the etiology of this remains unclear. The suspicion is that her liver is not storing glycogen properly following her resuscitation from the shock state. I will start 10% dextrose this IV until this problem resolves. Will have to follow her caloric intake closely now that she is starting to feed. Moderate contraction alkalosis will require a carbonic anhydrase inhibitor for a day or 2. RECONSULT NOTE: reconsulted today 01/07 for hypotension, hypoglycemia by Dr. Aldrich's team. I know this patient well, as I admitted her to the ICU. in brief, elderly female s/p small bowel perforation and ileostomy placement. has been critically ill and ongoing issues are hypoglycemia. Over last few days, has been having high ostomy output and progressive SARA, hypotension. on my exam today, poor skin turgor and clinically appears very dehydrated. actively receiving NS bolus. patient denies complaints. of note, she is an "Alt code: intubation only/no cpr". ROS otherwise negative, no chest pain, sob, abd pain, n /v. 01/08: Copious ileostomy output continues. C. difficile PCR negative yesterday. Have converted enteral feedings to elemental product, vital 1.5, and attempted to pharmacologically slow down bowel transfer time. Prerenal azotemia persists but she is getting aggressively hydrated and electrolytes being actively corrected presently. 01/09: Still a large amount of output from the ileostomy. We have reduce the elemental feeds to trickle feed. Azotemia improved with hydration. We will probably have to start parenteral nutrition through the new internal jugular line now. C. difficile toxin and PCR both negative. Objective Vital Signs / I&O: Vital Signs 01/08/18 14:00 01/08/18 16:00 01/08/18 18:00 Temperature 97.5 F L Pulse Rate 96 H 86 88 Respiratory Rate 15 Blood Pressure 106/58 L Pulse Oximetry 94 L 01/08/18 20:00 01/08/18 22:00 01/09/18 00:00 Temperature 97.6 F 97.8 F Pulse Rate 80 82 86 Respiratory Rate 18 18 Blood Pressure 138/57 L 129/73 Pulse Oximetry 96 95 01/09/18 02:00 01/09/18 04:00 01/09/18 06:00 Temperature 98.3 F Pulse Rate 90 94 H 96 H Respiratory Rate 22 Blood Pressure 147/79 H Pulse Oximetry 95 01/09/18 08:00 01/09/18 10:00 01/09/18 12:00 Temperature 98.0 F 98.3 F Pulse Rate 92 H 90 89 Respiratory Rate 16 14 Blood Pressure 136/70 119/62 Pulse Oximetry 95 95 Intake & Output 01/08/18 01/09/18 01/09/18 18:59 06:59 18:59 Intake Total 2600 / 2600 1481 / 1481 1000 / 1000 Output Total 2600 / 2600 2030 / 2030 Balance 0 / 0 -549 / -549 1000 / 1000 Weight 62 kg Intake: IV 2600 / 2600 1360 / 1360 1000 / 1000 D5W/NS + KCL 20 mEq Inj 1,000 1000 / 1000 ML @ As Directed IV.CONT .Q0M JUANITA Rx#:[id number] D5W/NS + KCL 40 mEq Inj 1,000 1000 / 1000 1000 / 1000 ML @ 125 mls/hr IV.CONT .Q8H JUANITA Rx#:[id number] Alburx 5% Inj 500 ML @ 250 mls/ 500 / 500 hr IV.SIG STAT STA Rx#:[id number] D10W Inj 500 ML @ 50 mls/hr IV. 500 / 500 0 / 0 SIG .Q10H JUANITA Rx#:[id number] Magnesium Sulfate Inj 2 GM In 100 / 100 NS Inj 96 ML @ 50 mls/hr IV.SIG ONCE ONE Rx#:[id number] Zosyn 3.375 GM Premix 50 ML @ 100 / 100 100 / 100 100 mls/hr IV.SIG Q6H JUANITA Rx#: [id number] KCl 20 mEq Premix Inj 20 meq In 400 / 400 100 ml @ 50 mls/hr IV.SIG Q2H PRN Rx#:[id number] Potassium Phosphate Inj 30 MMOL 260 / 260 In NS Inj 250 ML @ 43.333 mls/ hr IV.SIG ONCE ONE Rx#:[id number] Tube Feeding 121 / 121 Output: Urine Amount (Catheter) 350 / 350 550 / 550 Indwelling Urethral Catheter 350 / 350 550 / 550 Stool Amount (Stoma) 2250 / 2250 1480 / 1480 Right Lower Abdomen 2250 / 2250 1480 / 1480 Result Diagrams: 01/09/18 05:30 01/09/18 05:30 Objective Remarks: GENERAL: Weak, elderly female, on nasal cannula. No distress but still appears frail SKIN: Well-perfused, but fragile skin, poor skin turgor persists. HEENT: Nasal cannula. Airway patent, no obstructive noises. CARDIOVASCULAR: NSR regular rhythm. no edema. RESPIRATORY: Equal chest rise. unlabored. Mchugh are clear GASTROINTESTINAL: Abdomen closed, midline incision dressing intact. Ostomy with liquid output, brown in color. G-tube in place, tolerating tube elemental feeds MUSCULOSKELETAL: No obvious deformities. No clubbing or cyanosis. Limbs well perfused. NEUROLOGICAL: Lying in bed. Weak, protecting airway. Able to state a few words. Follows commands 4 limbs. Procedures: Laparotomy and bowel resection 12/24 Laparotomy and ileostomy formation 12/26 Intubation and mechanical ventilation Assessment and Plan - Problem List (1) Respiratory failure requiring intubation Code(s): J96.90 - Respiratory failure, unspecified, unspecified whether with hypoxia or hypercapnia Status: Acute (2) Septic shock Code(s): A41.9 - Sepsis, unspecified organism; R65.21 - Severe sepsis with septic shock Status: Acute (3) Hypoglycemia Code(s): E16.2 - Hypoglycemia, unspecified Status: Acute (4) Non-STEMI (non-ST elevated myocardial infarction) Code(s): I21.4 - Non-ST elevation (NSTEMI) myocardial infarction Status: Acute (5) Free intraperitoneal air Code(s): K66.8 - Other specified disorders of peritoneum Status: Resolved (6) Acute abdomen Code(s): R10.0 - Acute abdomen Status: Acute (7) Elevated lactic acid level Code(s): R79.89 - Other specified abnormal findings of blood chemistry Status : Acute (8) Ischemic bowel syndrome Code(s): K55.9 - Vascular disorder of intestine, unspecified Status: Acute - Assessment and Plan Plan: Assessment: 87yF with perforated small bowel now s/p emergent exploratory laparotomy, small bowel resection. Now complicated by acute dehydration, acute kidney injury, high ostomy output. Discussed with saloni Wolff: will send c. diff to rule out ileitis. replace ostomy output 1/2:1 with D5-NS+20kcl, change tube feeds to a higher calorie/carb from glucerna to vital. Vital 1.5 reduced to 10cc/h. Plan by systems: Neurologic: Acute metabolic encephalopathy Minimize sedation minimize sedation Use as needed Tylenol and morphine for pain Respiratory: Acute hypoxic and hypercarbic respiratory failure-improving Bilateral pleural effusion Extubated yesterday 01/01/2018 tolerating well Head of bed elevated, Nebs Wean FiO2 for goal SPO2 greater than 90% Diuresis as below Cardiovascular: Septic shock resolved hypotensive: dehydration Paroxysmal A. fib with RVR-resolved Cannot anticoagulate for A. fib due to recent surgery, discontinued amiodarone IV digoxin 0.25 mg 1 given 12/29/2017 Keep magnesium more than 2.2, keep potassium more than 4 Tenormin restarted yesterday, restart losartan and discontinue triamterene/ hydrochlorothiazide today IV labetalol 20 mg every 2 hours as needed for SBP more than 160 d10w @ 30 for hypoglycemia replace ostomy output 1/2:1, hold diuretics Renal: Acute kidney injury-worsening again secondary to dehydration ivf as above. - Strict I/Os FEN/GI: Small bowel perforation Intra-abdominal sepsis Severe acute protein calorie malnutrition Hypocalcemia Hypomagnesemia High ostomy output s/p abdominal closure 12/30/17. Ileostomy pink, new G-tube in place. change tube feeds to vital 1.5 @ 60 for a more elemental formula replace ostomy output 2:1 Imodium send c. diff sample ICU electrolyte protocol Dr. Aldrich following Heme/ID: Anemia secondary to acute blood loss Septic shock-resolved Intra-abdominal sepsis-resolved Daily CBC Follow-up cultures-negative to date C. difficile PCR and toxin negative Endocrine: Hypoglycemia: persistent Hypomagnesemia Hypokalemia -cortisol level 11 - continue d10w and d5 replacements - change tube feeds to vital - check AM LFTs, coags to eval for liver function - serial accuchecks - d50w as needed. -Aggressive electrolyte replacement including magnesium and phosphate Prophylaxis: GI Prophylaxis PPI IV DVT Prophylaxis -SCDs Subcu heparin-hold immediate post op period due to anemia. Star today 01/02 with Lovenox 40 mg subcu daily Overall impression: This woman is critically ill with profound electrolyte and fluid losses. We continue to have a tough time keeping up with her nutritional demands at this point and will need to try to slow down her bowel transit time. She remains critically ill and we are having to stop some of her normal blood pressure control medications. Critical care time 44 minutes aside from invasive procedures.
--- NOTE | 2018-01-09 14:21 | P.PNGS ---
Subjective Interval history: DAILY PROGRESS NOTE FOR SURGICAL ATTENDING, DR. ROYA ALDRICH Mrs. Johnson resting in bed; no complaints Dc Ochoa at bedside---discussed about possible transition to Hospice Care Physical Exam Vital signs: Vital Signs 01/08/18 16:00 01/08/18 18:00 01/08/18 20:00 Temperature 97.5 F L 97.6 F Pulse Rate 86 88 80 Respiratory Rate 15 18 Blood Pressure 106/58 L 138/57 L Pulse Oximetry 94 L 96 01/08/18 22:00 01/09/18 00:00 01/09/18 02:00 Temperature 97.8 F Pulse Rate 82 86 90 Respiratory Rate 18 Blood Pressure 129/73 Pulse Oximetry 95 01/09/18 04:00 01/09/18 06:00 01/09/18 08:00 Temperature 98.3 F 98.0 F Pulse Rate 94 H 96 H 92 H Respiratory Rate 22 16 Blood Pressure 147/79 H 136/70 Pulse Oximetry 95 95 01/09/18 10:00 01/09/18 12:00 Temperature 98.3 F Pulse Rate 90 89 Respiratory Rate 14 Blood Pressure 119/62 Pulse Oximetry 95 Intake & Output 01/08/18 01/09/18 01/09/18 18:59 06:59 18:59 Intake Total 2600 / 2600 1481 / 1481 1050 / 1050 Output Total 2600 / 2600 2029 Balance 0 / 0 -549 / -549 1050 / 1050 Weight 62 kg Intake: IV 2600 / 2600 1360 / 1360 1050 / 1050 D5W/NS + KCL 20 mEq Inj 1,000 1000 / 1000 ML @ As Directed IV.CONT .Q0M JUANITA Rx#:[id number] D5W/NS + KCL 40 mEq Inj 1,000 1000 / 1000 1000 / 1000 ML @ 125 mls/hr IV.CONT .Q8H JUANITA Rx#:[id number] Alburx 5% Inj 500 ML @ 250 mls/ 500 / 500 hr IV.SIG STAT STA Rx#:[id number] D10W Inj 500 ML @ 50 mls/hr IV. 500 / 500 0 / 0 SIG .Q10H JUANITA Rx#:[id number] Magnesium Sulfate Inj 2 GM In 100 / 100 NS Inj 96 ML @ 50 mls/hr IV.SIG ONCE ONE Rx#:[id number] Zosyn 3.375 GM Premix 50 ML @ 100 / 100 100 / 100 50 / 50 100 mls/hr IV.SIG Q6H JUANITA Rx#: [id number] KCl 20 mEq Premix Inj 20 meq In 400 / 400 100 ml @ 50 mls/hr IV.SIG Q2H PRN Rx#:[id number] Potassium Phosphate Inj 30 MMOL 260 / 260 In NS Inj 250 ML @ 43.333 mls/ hr IV.SIG ONCE ONE Rx#:[id number] Tube Feeding 121 / 121 Output: Urine Amount (Catheter) 350 / 350 550 / 550 Indwelling Urethral Catheter 350 / 350 550 / 550 Stool Amount (Stoma) 2250 / 2250 1480 / 1480 Right Lower Abdomen 2250 / 2250 1480 / 1480 Narrative: Alert and awake Abd: soft; midline incision with lennie; G tube with trickle feed; Ileostomy with pink stoma--- liquid yellow stool Moderate generalized edema - Urinary Catheter Management Indwelling Urethral Catheter Cath placed during this visit: yes Reason for continuing: Hourly intake/output Insertion date: 12/24/17 Insertion time: 20:15 Results - Labs 01/11/18 21:00 01/11/18 21:00 Laboratory Results - last 24 hr 01/08/18 01/08/18 01/08/18 13:49 18:19 23:42 WBC RBC Hgb Hct MCV MCH MCHC RDW Plt Count MPV Neut % (Auto) Lymph % (Auto) [place] % (Auto) Eos % (Auto) Baso % (Auto) Neut # (Auto) Lymph # (Auto) [place] # (Auto) Eos # (Auto) Baso # (Auto) WBC Differential Differential Comment Sodium Potassium Chloride Carbon Dioxide Anion Gap BUN Creatinine Estimated GFR POC Glucose 109 90 115 H Random Glucose Calcium Prot Corrected Calcium Phosphorus Magnesium Total Protein 01/09/18 01/09/18 01/09/18 00:15 03:46 05:30 WBC RBC Hgb Hct MCV MCH MCHC RDW Plt Count MPV Neut % (Auto) Lymph % (Auto) [place] % (Auto) Eos % (Auto) Baso % (Auto) Neut # (Auto) Lymph # (Auto) [place] # (Auto) Eos # (Auto) Baso # (Auto) WBC Differential Differential Comment Sodium 146 H Potassium 4.6 D 4.5 Chloride 111 H D Carbon Dioxide 28.2 Anion Gap 7 BUN 19 H Creatinine 1.53 H Estimated GFR 39 L POC Glucose 153 H Random Glucose 138 H Calcium 7.0 L* D Prot Corrected Calcium 7.7 L Phosphorus 3.4 D Magnesium 1.7 Total Protein 5.8 L D 01/09/18 01/09/18 05:30 11:26 WBC 6.2 RBC 2.68 L Hgb 8.1 L Hct 24.9 L MCV 92.9 D MCH 30.4 MCHC 32.7 RDW 15.9 Plt Count 319 MPV 9.9 Neut % (Auto) 64.2 Lymph % (Auto) 20.2 [place] % (Auto) 11.3 H Eos % (Auto) 2.5 Baso % (Auto) 1.8 Neut # (Auto) 3.9 Lymph # (Auto) 1.2 [place] # (Auto) 0.7 Eos # (Auto) 0.2 Baso # (Auto) 0.1 WBC Differential . Differential Comment Auto diff final Sodium Potassium Chloride Carbon Dioxide Anion Gap BUN Creatinine Estimated GFR POC Glucose 108 Random Glucose Calcium Prot Corrected Calcium Phosphorus Magnesium Total Protein - Imaging Imaging: ITS Impressions Abdomen X-Ray 12/24/17 00:00 CONCLUSION: Dilated small bowel with collapse of the colon most characteristic of small bowel obstructive process. Calcific atherosclerotic vascular disease Abdomen/Pelvis CT 12/24/17 00:00 CONCLUSION: 1. Small to moderate amount of free air of concern for ruptured viscus. 2. Abnormal bowel gas pattern with dilated loops of small bowel and air-fluid levels most characteristic of a small bowel obstruction. 3. Moderate diverticulosis present. These findings were called to Dr. Aldrich at 1839 hours. Chest X-Ray 01/08/18 00:00 CONCLUSION: Central venous catheter in good position. No pneumothorax identified. Assessment and Plan - Assessment (1) Gastrostomy in place Code(s): Z93.1 - Status: Acute (2) Ileostomy in place Code(s): Z93.2 - Status: Acute Plan: 87 year old female s/p lap converted to ex lap; resection of nonviable small bowel; ileostomy. -CCM following---BP now improved -Glucose improved as well -Continue replacing GI losses with IVF -Increased frequency of Imodium -Continue TF at trickle rate -Palliative Care following--Discussed with Mila AGUILA -- she will discuss possible transition to [facility] at home vs care center if the family is ready to transition ---Dr. Aldrich had a discussed with family last night -PT as tolerated -Continue ileostomy care and teaching -Discussed with Lilian ROWAN at bedside (3) History of esophageal reflux Code(s): Z87.19 - Status: Chronic - Attending Attestation NOTE FOR SURGICAL ATTENDING, DR. ROYA ALDRICH I agree with above assessment and plan. The exam, history, and the medical decision-making described in the above note were completed with the assistance of the mid-level provider. I reviewed and agree with the findings presented. I attest that I had a [id number] encounter with the patient on the same day, and personally performed and documented my assessment and findings in the medical record. The following services were provided during this hospital visit: Chart data review, vital sign assessments/reviewing monitor data Review of consultations notes if present. Medication orders/review and/or management Ordering and/or reviewing lab tests Ordering and/or interpreting/reviewing x-rays and/or diagnostic studies Care of the patient and discussion of the patient with the care team Documentation time To help prompt me to consider important information that might be impacting today's encounter and assessment, Information from prior notes written by myself or my colleagues may have been "brought forward/copy and pasted" into today's note.
--- NOTE | 2018-01-09 15:21 | P.PNPAL ---
Reason for Visit Reason for visit: a. To assist with evaluation and management of symptoms including: pain; dyspnea; encephalopathy b. To assist medical decision maker(s) with: better understanding of current medical conditions; weighing benefits/burdens of medical treatment options; making medical treatment decisions. Subjective Subjective/Interval History: Follow-up medically necessary for further clarification of goals of care. Patient seen and examined in his room in the presence of a bedside RN and son Don. Patient denies pain but per bedside RN report, patient has been c/o of pain during care and begging not to be repositioned. Patient is partially oriented and lethargic. She is only answering simple questions and not verbalizing much. Tube feeding reduced to trickle feed now 10ml/hr Central line placed on 01/08/18 for parenteral nutrition. Patient`s son Don stated that his brother had a conversation with General Surgeon Dr. Aldrich and at that time expressed that family will most likely transition to comfort care through hospice services. Readdressed code status and Don is referring to final decision making to his brother. Introduced hospice philosophy and benefits. Explained to patient`s son that patient may benefit from been discharged to a hospice care center for better symptom management versus home. Explained to him that patient is requiring total care at this time. Don referring final decision making to his older brother. Patient`s other son is currently at work. Case discussed with bedside RN and Maurice AGUILA Family/Friend Interactions: See interval note. Advance Directives Living Will: Never completed Health Care Surrogate: Never completed Durable Power of Wage Adjuster: Never completed Health Care Surrogate Name and Number: HCP: X2 Sons Documented care wishes:: No written documentation of health care goals/preferences . Objective Vital Signs: Vital Signs 01/08/18 16:00 01/08/18 18:00 01/08/18 20:00 Temperature 97.5 F L 97.6 F Pulse Rate 86 88 80 Respiratory Rate 15 18 Blood Pressure 106/58 L 138/57 L Pulse Oximetry 94 L 96 01/08/18 22:00 01/09/18 00:00 01/09/18 02:00 Temperature 97.8 F Pulse Rate 82 86 90 Respiratory Rate 18 Blood Pressure 129/73 Pulse Oximetry 95 01/09/18 04:00 01/09/18 06:00 01/09/18 08:00 Temperature 98.3 F 98.0 F Pulse Rate 94 H 96 H 92 H Respiratory Rate 22 16 Blood Pressure 147/79 H 136/70 Pulse Oximetry 95 95 01/09/18 10:00 01/09/18 12:00 01/09/18 14:00 Temperature 98.3 F Pulse Rate 90 89 88 Respiratory Rate 14 Blood Pressure 119/62 Pulse Oximetry 95 Intake & Output 01/08/18 01/09/18 01/09/18 18:59 06:59 18:59 Intake Total 2600 / 2600 1481 / 1481 1550 / 1550 Output Total 2600 / 2600 2029 / 2029 Balance 0 / 0 -549 / -549 1550 / 1550 Weight 62 kg Intake: IV 2600 / 2600 1360 / 1360 1550 / 1550 D5W/NS + KCL 20 mEq Inj 1,000 1000 / 1000 ML @ As Directed IV.CONT .Q0M JUANITA Rx#:[id number] D5W/NS + KCL 40 mEq Inj 1,000 1000 / 1000 1000 / 1000 ML @ 125 mls/hr IV.CONT .Q8H JUANITA Rx#:[id number] Alburx 5% Inj 500 ML @ 250 mls/ 500 / 500 hr IV.SIG STAT STA Rx#:[id number] D10W Inj 500 ML @ 50 mls/hr IV. 500 / 500 0 / 0 500 / 500 SIG .Q10H JUANITA Rx#:[id number] Magnesium Sulfate Inj 2 GM In 100 / 100 NS Inj 96 ML @ 50 mls/hr IV.SIG ONCE ONE Rx#:[id number] Zosyn 3.375 GM Premix 50 ML @ 100 / 100 100 / 100 50 / 50 100 mls/hr IV.SIG Q6H JUANITA Rx#: [id number] KCl 20 mEq Premix Inj 20 meq In 400 / 400 100 ml @ 50 mls/hr IV.SIG Q2H PRN Rx#:[id number] Potassium Phosphate Inj 30 MMOL 260 / 260 In NS Inj 250 ML @ 43.333 mls/ hr IV.SIG ONCE ONE Rx#:[id number] Tube Feeding 121 / 121 Output: Urine Amount (Catheter) 350 / 350 550 / 550 Indwelling Urethral Catheter 350 / 350 550 / 550 Stool Amount (Stoma) 2250 / 2250 1480 / 1480 Right Lower Abdomen 2250 / 2250 1480 / 1480 Physical Exam: CONSTITUTIONAL/GENERAL: This is an adequately nourished patient, in no acute distress. TUBES/LINES/DRAINS: left subclavian central line; castillo catheter; Gastrostomy tube, SCDs. SKIN: No jaundice or lesions. Abdominal surgical wound covered with a primapore dressing. Skin temperature appropriate. Not diaphoretic. HEAD: Atraumatic. Normocephalic. EYES: PERRLA. No scleral icterus. No injection or drainage. Fundi not examined. ENT: Hearing normal. Nose without bleeding or purulent drainage. Moist oral mucosa. NECK: Trachea midline. CARDIOVASCULAR: s1, s2 normal-without murmurs, gallops, or rubs. No JVD. Peripheral pulses symmetric. RESPIRATORY/CHEST: Symmetric, unlabored respirations. Diminished breath sounds in the bases. No wheezes, rales, or rhonchi. GASTROINTESTINAL: Midline abdominal wound with dressing intact- Gastrostomy with TF infusing .Active bowel sounds GENITOURINARY: Without palpable bladder distension. Castillo catheter in place. MUSCULOSKELETAL: Extremities without clubbing, cyanosis. SCDs in place. No mottling. NEUROLOGICAL:Lethargic partially oriented. Did not verbalize during visit. Very weak. PSYCHIATRIC: No anxiety or obvious signs of depression. Calm. . Diagnostic Tests Laboratory: Laboratory Results - last 72 hr 01/06/18 01/06/18 01/06/18 18:04 18:49 18:50 WBC RBC Hgb Hct MCV MCH MCHC RDW Plt Count MPV Prelim Diff (Auto) Neut % (Auto) Lymph % (Auto) [place] % (Auto) Eos % (Auto) Baso % (Auto) Neut # (Auto) Lymph # (Auto) [place] # (Auto) Eos # (Auto) Baso # (Auto) WBC Differential Diff Scan Differential Comment Platelet Estimate Platelet Morphology PT INR APTT Sodium Potassium Chloride Carbon Dioxide Anion Gap BUN Creatinine Estimated GFR POC Glucose 50 L 36 L* 32 L* Random Glucose Calcium Prot Corrected Calcium Phosphorus Magnesium Total Bilirubin Direct Bilirubin Indirect Bilirubin GGT AST ALT Alkaline Phosphatase Ammonia Total Protein Albumin Stl C.difficile Tox PCR St C. diff Tox Epid 027 01/06/18 01/07/18 01/07/18 19:50 00:27 01:01 WBC RBC Hgb Hct MCV MCH MCHC RDW Plt Count MPV Prelim Diff (Auto) Neut % (Auto) Lymph % (Auto) [place] % (Auto) Eos % (Auto) Baso % (Auto) Neut # (Auto) Lymph # (Auto) [place] # (Auto) Eos # (Auto) Baso # (Auto) WBC Differential Diff Scan Differential Comment Platelet Estimate Platelet Morphology PT INR APTT Sodium Potassium Chloride Carbon Dioxide Anion Gap BUN Creatinine Estimated GFR POC Glucose 68 55 L 82 Random Glucose Calcium Prot Corrected Calcium Phosphorus Magnesium Total Bilirubin Direct Bilirubin Indirect Bilirubin GGT AST ALT Alkaline Phosphatase Ammonia Total Protein Albumin Stl C.difficile Tox PCR St C. diff Tox Epid 027 01/07/18 01/07/18 01/07/18 06:23 06:45 06:45 WBC 5.7 RBC 2.73 L Hgb 10.2 L Hct 27.3 L MCV 100.0 D MCH 37.3 H MCHC 37.3 H RDW 16.0 Plt Count 209 MPV 10.6 Prelim Diff (Auto) Slide review pending Neut % (Auto) 63.9 Lymph % (Auto) 23.7 [place] % (Auto) 10.0 H Eos % (Auto) 1.2 Baso % (Auto) 1.2 Neut # (Auto) 3.6 Lymph # (Auto) 1.3 [place] # (Auto) 0.6 Eos # (Auto) 0.1 Baso # (Auto) 0.1 WBC Differential . Diff Scan Auto diff confirmed Differential Comment . Platelet Estimate Normal Platelet Morphology Enlarged H PT INR APTT Sodium 138 Potassium 3.2 L Chloride 99 Carbon Dioxide 28.1 Anion Gap 11 BUN 20 H Creatinine 1.55 H Estimated GFR 38 L POC Glucose 68 Random Glucose 82 Calcium 7.9 L Prot Corrected Calcium Phosphorus 2.4 L Magnesium 1.3 L Total Bilirubin Direct Bilirubin Indirect Bilirubin GGT AST ALT Alkaline Phosphatase Ammonia Total Protein Albumin Stl C.difficile Tox PCR St C. diff Tox Epid 027 01/07/18 01/07/18 01/07/18 06:45 13:18 13:20 WBC RBC Hgb Hct MCV MCH MCHC RDW Plt Count MPV Prelim Diff (Auto) Neut % (Auto) Lymph % (Auto) [place] % (Auto) Eos % (Auto) Baso % (Auto) Neut # (Auto) Lymph # (Auto) [place] # (Auto) Eos # (Auto) Baso # (Auto) WBC Differential Diff Scan Differential Comment Platelet Estimate Platelet Morphology PT INR APTT Sodium Potassium Cancelled Chloride Carbon Dioxide Anion Gap BUN Creatinine Estimated GFR POC Glucose 15 L* 33 L* Random Glucose Calcium Prot Corrected Calcium Phosphorus Magnesium Total Bilirubin Direct Bilirubin Indirect Bilirubin GGT AST ALT Alkaline Phosphatase Ammonia Total Protein Albumin Stl C.difficile Tox PCR St C. diff Tox Epid 027 01/07/18 01/07/18 01/07/18 13:49 15:08 17:00 WBC RBC Hgb Hct MCV MCH MCHC RDW Plt Count MPV Prelim Diff (Auto) Neut % (Auto) Lymph % (Auto) [place] % (Auto) Eos % (Auto) Baso % (Auto) Neut # (Auto) Lymph # (Auto) [place] # (Auto) Eos # (Auto) Baso # (Auto) WBC Differential Diff Scan Differential Comment Platelet Estimate Platelet Morphology PT INR APTT Sodium Potassium Chloride Carbon Dioxide Anion Gap BUN Creatinine Estimated GFR POC Glucose 101 56 L Random Glucose Calcium Prot Corrected Calcium Phosphorus Magnesium Total Bilirubin Direct Bilirubin Indirect Bilirubin GGT AST ALT Alkaline Phosphatase Ammonia Total Protein Albumin Stl C.difficile Tox PCR Negative St C. diff Tox Epid 027 Negative 01/07/18 01/07/18 01/08/18 18:53 20:28 00:00 WBC RBC Hgb Hct MCV MCH MCHC RDW Plt Count MPV Prelim Diff (Auto) Neut % (Auto) Lymph % (Auto) [place] % (Auto) Eos % (Auto) Baso % (Auto) Neut # (Auto) Lymph # (Auto) [place] # (Auto) Eos # (Auto) Baso # (Auto) WBC Differential Diff Scan Differential Comment Platelet Estimate Platelet Morphology PT INR APTT Sodium Potassium Chloride Carbon Dioxide Anion Gap BUN Creatinine Estimated GFR POC Glucose 62 L 119 H 27 L* Random Glucose Calcium Prot Corrected Calcium Phosphorus Magnesium Total Bilirubin Direct Bilirubin Indirect Bilirubin GGT AST ALT Alkaline Phosphatase Ammonia Total Protein Albumin Stl C.difficile Tox PCR St C. diff Tox Epid 027 01/08/18 01/08/18 01/08/18 03:05 05:50 06:19 WBC RBC Hgb Hct MCV MCH MCHC RDW Plt Count MPV Prelim Diff (Auto) Neut % (Auto) Lymph % (Auto) [place] % (Auto) Eos % (Auto) Baso % (Auto) Neut # (Auto) Lymph # (Auto) [place] # (Auto) Eos # (Auto) Baso # (Auto) WBC Differential Diff Scan Differential Comment Platelet Estimate Platelet Morphology PT INR APTT Sodium 141 Potassium 2.7 L* Chloride 97 L Carbon Dioxide 34.9 H Anion Gap 9 BUN 23 H Creatinine 1.90 H Estimated GFR 30 L POC Glucose 104 81 Random Glucose 129 H Calcium 8.2 L Prot Corrected Calcium Phosphorus 2.1 L Magnesium 1.3 L Total Bilirubin 0.4 Direct Bilirubin 0.3 H Indirect Bilirubin 0.1 GGT 177 H AST 34 ALT 24 Alkaline Phosphatase 239 H Ammonia Total Protein 6.7 D Albumin 1.8 L Stl C.difficile Tox PCR St C. diff Tox Epid 027 01/08/18 01/08/18 01/08/18 06:19 06:19 06:19 WBC 6.6 RBC 2.91 L Hgb 10.0 L Hct 28.3 L MCV 97.5 MCH 34.6 H MCHC 35.4 RDW 16.1 Plt Count 295 D MPV 10.4 Prelim Diff (Auto) Neut % (Auto) 64.4 Lymph % (Auto) 23.3 [place] % (Auto) 10.5 H Eos % (Auto) 0.8 Baso % (Auto) 1.0 Neut # (Auto) 4.2 Lymph # (Auto) 1.5 [place] # (Auto) 0.7 Eos # (Auto) 0.1 Baso # (Auto) 0.1 WBC Differential . Diff Scan Differential Comment Auto diff final Platelet Estimate Platelet Morphology PT 20.9 H INR 2.1 APTT 36.4 H Sodium Potassium Chloride Carbon Dioxide Anion Gap BUN Creatinine Estimated GFR POC Glucose Random Glucose Calcium Prot Corrected Calcium Phosphorus Magnesium Total Bilirubin Direct Bilirubin Indirect Bilirubin GGT AST ALT Alkaline Phosphatase Ammonia 23 Total Protein Albumin Stl C.difficile Tox PCR St C. diff Tox Epid 027 01/08/18 01/08/18 01/08/18 08:08 10:44 13:16 WBC RBC Hgb Hct MCV MCH MCHC RDW Plt Count MPV Prelim Diff (Auto) Neut % (Auto) Lymph % (Auto) [place] % (Auto) Eos % (Auto) Baso % (Auto) Neut # (Auto) Lymph # (Auto) [place] # (Auto) Eos # (Auto) Baso # (Auto) WBC Differential Diff Scan Differential Comment Platelet Estimate Platelet Morphology PT INR APTT Sodium Potassium Chloride Carbon Dioxide Anion Gap BUN Creatinine Estimated GFR POC Glucose 73 71 50 L Random Glucose Calcium Prot Corrected Calcium Phosphorus Magnesium Total Bilirubin Direct Bilirubin Indirect Bilirubin GGT AST ALT Alkaline Phosphatase Ammonia Total Protein Albumin Stl C.difficile Tox PCR St C. diff Tox Epid 027 01/08/18 01/08/18 01/08/18 13:49 18:19 23:42 WBC RBC Hgb Hct MCV MCH MCHC RDW Plt Count MPV Prelim Diff (Auto) Neut % (Auto) Lymph % (Auto) [place] % (Auto) Eos % (Auto) Baso % (Auto) Neut # (Auto) Lymph # (Auto) [place] # (Auto) Eos # (Auto) Baso # (Auto) WBC Differential Diff Scan Differential Comment Platelet Estimate Platelet Morphology PT INR APTT Sodium Potassium Chloride Carbon Dioxide Anion Gap BUN Creatinine Estimated GFR POC Glucose 109 90 115 H Random Glucose Calcium Prot Corrected Calcium Phosphorus Magnesium Total Bilirubin Direct Bilirubin Indirect Bilirubin GGT AST ALT Alkaline Phosphatase Ammonia Total Protein Albumin Stl C.difficile Tox PCR St C. diff Tox Epid 027 01/09/18 01/09/18 01/09/18 00:15 03:46 05:30 WBC RBC Hgb Hct MCV MCH MCHC RDW Plt Count MPV Prelim Diff (Auto) Neut % (Auto) Lymph % (Auto) [place] % (Auto) Eos % (Auto) Baso % (Auto) Neut # (Auto) Lymph # (Auto) [place] # (Auto) Eos # (Auto) Baso # (Auto) WBC Differential Diff Scan Differential Comment Platelet Estimate Platelet Morphology PT INR APTT Sodium 146 H Potassium 4.6 D 4.5 Chloride 111 H D Carbon Dioxide 28.2 Anion Gap 7 BUN 19 H Creatinine 1.53 H Estimated GFR 39 L POC Glucose 153 H Random Glucose 138 H Calcium 7.0 L* D Prot Corrected Calcium 7.7 L Phosphorus 3.4 D Magnesium 1.7 Total Bilirubin Direct Bilirubin Indirect Bilirubin GGT AST ALT Alkaline Phosphatase Ammonia Total Protein 5.8 L D Albumin Stl C.difficile Tox PCR St C. diff Tox Epid 027 01/09/18 01/09/18 05:30 11:26 WBC 6.2 RBC 2.68 L Hgb 8.1 L Hct 24.9 L MCV 92.9 D MCH 30.4 MCHC 32.7 RDW 15.9 Plt Count 319 MPV 9.9 Prelim Diff (Auto) Neut % (Auto) 64.2 Lymph % (Auto) 20.2 [place] % (Auto) 11.3 H Eos % (Auto) 2.5 Baso % (Auto) 1.8 Neut # (Auto) 3.9 Lymph # (Auto) 1.2 [place] # (Auto) 0.7 Eos # (Auto) 0.2 Baso # (Auto) 0.1 WBC Differential . Diff Scan Differential Comment Auto diff final Platelet Estimate Platelet Morphology PT INR APTT Sodium Potassium Chloride Carbon Dioxide Anion Gap BUN Creatinine Estimated GFR POC Glucose 108 Random Glucose Calcium Prot Corrected Calcium Phosphorus Magnesium Total Bilirubin Direct Bilirubin Indirect Bilirubin GGT AST ALT Alkaline Phosphatase Ammonia Total Protein Albumin Stl C.difficile Tox PCR St C. diff Tox Epid 027 Result Diagrams: 01/09/18 05:30 01/09/18 05:30 Imaging: Abdomen X-Ray 12/24/17 00:00 CONCLUSION: Dilated small bowel with collapse of the colon most characteristic of small bowel obstructive process. Calcific atherosclerotic vascular disease Abdomen/Pelvis CT 12/24/17 00:00 CONCLUSION: 1. Small to moderate amount of free air of concern for ruptured viscus. 2. Abnormal bowel gas pattern with dilated loops of small bowel and air-fluid levels most characteristic of a small bowel obstruction. 3. Moderate diverticulosis present. These findings were called to Dr. Aldrich at 1839 hours. Chest X-Ray 01/08/18 00:00 CONCLUSION: Central venous catheter in good position. No pneumothorax identified. Procedures: Intubation/mechanical ventilation Left subclavian central line placement Right radial arterial line placement Exploratory lap --> resection of terminal ileum/appendectomy 12/26/17: Removal of temporary abdominal closure device, abdominal exploration, small bowel resection, resection of cecum and terminal ileum, primary anastomosis of ileum to ascending colon, which the tissue was compromised and the anastomosis failed, resection of anastomosis, placement of ileostomy, cholecystectomy and placement of temporary abdominal closure device. 01/01/2018: Medically extubated 01/08/2018- Central line placement . Assessment and Plan - Disease Oriented Problem List (1) Ischemic bowel syndrome (2) Septic shock (3) Sepsis (4) Anemia (5) Hypoalbuminemia - Symptom Scale (3) Encephalopathy Comment: Improving. Medically extubated 01/01/18. oriented to self, place and partially situation. Pertinent Non-Medical Issues: Psychosocial: Originally from [place]. Moved to [facility] around 1991. High school graduate. 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 Two sons -- Yves and Don -- live locally and check in on her frequently. Spiritual: Yarsanism and spirituality have not played a large role in her life. She does not belong to any local max group. She does pray, however. Legal: No known advanced directive. Without a designated healthcare surrogate, her sons would be the joint proxy healthcare decision makers. Ethical issues impacting care: None identified at this time Important Contacts: Don Johnson (son and co-proxy) [phone] Yves Johnson (son and co-proxy) [phone] . Prognosis: Ms. Johnson is critically ill. She was in remarkably good shape for her age until about 2-3 weeks ago when her GI problems began, but she has gone into major surgery undernourished and post-operatively she is now hypotensive, bradycardic , and hypothermic. She is scheduled for additional surgery on 12/26/17. In spite of her relatively high level of functioning just weeks ago, she remains an grave risk of not surviving the hospitalization. Should she survive, the odds are that she would not get home again and would be either in a nursing facility or the hospital until her . At such time that patient or family feels that comfort measures only would be most in line with her goals, she would be eligible for hospice services. . Code Status: Alternative Code (No chest compressions, No shock) Plan: == Code Status: Alternative Code- No chest compressions, No shock. == Goals of medical treatment: Aggressive short of CPR and shock. It appears family is leaning towards transitioning patient to comfort care through hospice services. Discussed with Dno who is referring final decision making to his brother Yves Johnson. Readdressed code status and Don is referring final decision making to his brother Yves. Introduced hospice philosophy and benefits. Explained to patient`s son that patient may benefit from been discharged to a hospice care center for better symptom management versus home. Explained to him that patient is requiring total care at this time. == Medical Decision making: There is no known written designation of healthcare surrogate. Patient is very lethargic, not verbalizing much and does not appear capable of participating in decision making at this time. Per [place] statutes hierarchy, proxy medical decision making would fall jointly to her two sons--Don and Yves. == Symptoms * Pain: There were no known prehospitalization pain syndromes. Current sources of pain include her recent abdominal surgery; orotracheal and nasogastric intubations; vascular access lines; prolonged bedbound status; Castillo catheter. prn Morphine sulfate and Acetaminophen available. Pain most likely adequately addressed. No further recommendations at this time. * Dyspnea: No known underlying lung disease. Patient is on room air with O2 sats in the low to mid 90s. No acute signs of respiratory distress. Continue to monitor for respiratory distress. * Encephalopathy: No known underlying dementia. Encephalopathy is probably multifactorial with sepsis playing a large role. Patient medically extubated today. Patient is very lethargic today-did not verbalize during visit. Continue to monitor. == At anytime goals of care should transition to "comfort measures only," patient would be eligible for hospice services. == Palliative care will continue to follow to assist with symptom management and to further clarify goals of medical treatment as the clinical course evolves. . Attestation Attestation: To help prompt me to consider important information that might be impacting today's encounter and assessment, information from prior notes written by myself or my colleagues may have been "brought forward" into today's note. My signature on this note, however, is an attestation that I personally performed the exam, history, and/or decision-making noted today, and, unless otherwise indicated, the interactions with patient, family, and staff as well as the review of records all occurred today. I also attest that the listed assessment and stated plan reflect my best clinical judgment today based on the combination of historical information, prior notes, and today's exam/ interactions. When time spent is documented, it refers only to time spent today by the signer, or if indicated, combined time spent today by collaborating physician/nurse practitioner.
--- NOTE | 2018-01-09 18:35 | P.PNWCN ---
Wound Care Nurse Consult Description: Patient seen for follow up of stoma assessment and ostomy care Communicated with: HARPAL Quintana and patient Recommendation: Empty pouch of effluent when 1/3-1/2 full Change appliance every 3 days and PRN for leaks PLEASE DO NOT REINFORCE WAFER WITH TAPE, IF LEAKING PLEASE REMOVE AND REPLACE Wound Vac - Wound Vac Midline Abdomen Mode Setting: Continuous Bowel Diversion Stoma - Bowel Stoma Right Lower Abdomen Stoma Appearance: Protruding, Round (red, moist, functioning) Collection Device: Two-piece Drainage Description: Liquid (yellow) Wafer Size: 2 1/4 Moldable Gisela-Stomal Surrounding Tissue Sensation Description: No Symptoms - Additional Information Additional Information: Patient seen for follow up of stoma assessment and ostomy care. Pouch and wafer are dry and intact. Will follow up with patient on Friday.
[2018-01-10] MEDS: KCL 40 mEq/D5W/NaCl 0.9% Inj 1,000 ML IV.CONT SCH ×2 (03:17→11:37)
[2018-01-10] MEDS: Oral Hygiene Kit OROPHARYNG SCH ×3 (03:17→16:30)
[2018-01-10 05:48] LABS: Baso # (Auto) 0.1 th/mm3 (0.0-0.2); Baso % (Auto) 1.2 % (0.0-2.0); Eos # (Auto) 0.2 th/mm3 (0.0-0.4); Eos % (Auto) 3.8 % (0.0-4.0); Hematocrit 23.4 % (35.0-46.0); Hemoglobin 7.5 gm/dL (11.6-15.3); Lymph # (Auto) 1.4 th/mm3 (1.0-4.8); Lymph % (Auto) 24.3 % (9.0-44.0); Mean Corpuscular HGB Conc 32.1 % (32.0-36.0); Mean Corpuscular Hemoglobin 29.8 pg (27.0-34.0); Mean Corpuscular Volume 92.7 fL (80.0-100.0); Mean Platelet Volume 8.7 fL (7.0-11.0); Mono # (Auto) 0.7 th/mm3 (0.0-0.9); Neut # (Auto) 3.4 th/mm3 (1.8-7.7); Neut % (Auto) 58.7 % (16.0-70.0); Platelet Count 333 th/mm3 (150-450); Red Blood Count 2.52 mil/mm3 (4.00-5.30); Red Cell Distribution Width 15.8 % (11.6-17.2); White Blood Count 5.9 th/mm3 (4.0-11.0)
[2018-01-10] MEDS: Piperacil/Tazo 3.375 GM Premix 50 ML IV.SIG SCH ×3 (05:58→21:41)
[2018-01-10] MEDS: Dextrose 10% in Water Inj 500 ML IV.SIG SCH ×4 (05:58→21:27)
[2018-01-10 06:20] LABS: Calcium 6.7 mg/dL (8.5-10.1); Carbon Dioxide 20.8 meq/L (21.0-32.0); Magnesium 1.6 mg/dL (1.5-2.5); Potassium 4.6 meq/L (3.5-5.1)
[2018-01-10 06:34] LABS: Total Protein 5.5 g/dL (6.4-8.2)
[2018-01-10] MEDS: Enoxaparin Inj 40 MG/0.4 ML Syringe SQ SCH (08:58)
[2018-01-10] MEDS: Chlorhexidine 0.12% Oral Kit 15 ML UDC OROPHARYNG SCH ×2 (08:58→21:26)
[2018-01-10] MEDS: Atenolol 50 MG Tablet PO SCH ×2 (08:58→21:27)
[2018-01-10] MEDS: Potassium Chloride 25 MEQ Effervescent Tablet NG/OG SCH ×2 (08:58→21:26)
--- NOTE | 2018-01-10 09:14 | P.PNCC ---
Subjective Subjective Remarks/Hospital Course: 87yF originally admitted for abdominal pain and now found to have perforated hollow viscus with intra-abdominal free air. taken to OR emergently by Dr. Aldrich for exploratory laparotomy where they found small bowel perforation. small bowel was resected and due to significantly poor patient tissue and gross contamination of the field, patient was left in discontinuity with an open abdomen. arrives to the ICU intubated, critically ill, on vasopressors, in shock. sedated. no additional information is available from the patient; ROS unobtainable. 12/25: She remains oliguric and septic. We are unable to separate her from mechanical ventilation and are still correcting her metabolic acidosis. Pre- albumin of 5 implicates poor preoperative nutrition. Description of bowel from surgery lens support for a severely debilitated state prior to surgery. She is presently hemodynamically unstable and oliguric. 12/26: Magnesium, phosphate, potassium all low; presently being replaced. Persistent septic pattern. Scheduled for second look operation later today, anticipate discouraging findings. Acid-base balance acceptable in gas exchange good. Update: Back from OR. Well perfused. Clear lungs. Base -6. Urine acceptable. 12/27: Back from surgery yesterday with end ileostomy fashioned. Abdomen remains open with VAC dressing in place. Acid-base balance modestly improved and acceptable. Urine output acceptable and renal function remains close to normal. She remains hemodynamically unstable and rate wiring levo fed at 9 mcg/ min; typical of the smoldering septic picture. 12/28: Renal function remains acceptable. Requiring ongoing vasopressor support with Levophed. Acid-base balance largely corrected. Ileostomy is well perfused and functioning. Plan is to attempt to close the abdomen tomorrow. Blood sugar has twice dropped into the 20s when glucose containing IV solutions have all been stopped. Plan to start tube feeds when OK with surgical service. Please keep glucose containing solution running during operative procedures 12/29: Patient seen after OR. Abdomen closed, new J-tube in place. Ileostomy pink. Still requiring high-dose Levophed currently at 10 mcg/min. No hypoglycemia reported. For OR report is pending. Developed paroxysmal A. fib postop. Replace potassium and magnesium, give metoprolol as needed IV 12/30: Remains intubated sedated. Patient had episode of hypotension overnight. Currently still on vasopressin 0.04 IU. Hemoglobin is 7.1 I have ordered stat 1 unit PRBC. Remains on amiodarone currently sinus rhythm. Opens eyes to stimulation moves extremities purposefully 12/31: Remains on the vent, blood pressure has improved off vasopressin now. Grossly fluid positive approximately 25 KG. Showing generalized anasarca. Give IV Lasix 60 mg 1 and then 40 every 12 hours scheduled. Blood sugar remains low (72 am) despite D5 LR and tube feeds 01/01: Remains intubated currently off propofol only on fentanyl. Wakes up follows commands but remains weak lethargic. Urine output excellent with aggressive diuresis 6.2 L in 24 hours. D/W Dr. Aldrich 01/02: Patient was extubated yesterday tolerating well. Remains off pressors currently hypotensive. Atenolol was restarted yesterday. I will restart losartan and triamterene hydrochlorothiazide today. Son at the bedside updated he wants to continue intubation only. 01/03: Extubated and breathing comfortably. Protects airway well no obstructive noises. Nutritional status remains problematic and we are pushing adjunctive nutrition. 01/04: Excess water coming off nicely over the past 4 days and renal function remains on impaired. She is required 50% dextrose for hypoglycemia again and the etiology of this remains unclear. The suspicion is that her liver is not storing glycogen properly following her resuscitation from the shock state. I will start 10% dextrose this IV until this problem resolves. Will have to follow her caloric intake closely now that she is starting to feed. Moderate contraction alkalosis will require a carbonic anhydrase inhibitor for a day or 2. RECONSULT NOTE: reconsulted today 01/07 for hypotension, hypoglycemia by Dr. Aldrich's team. I know this patient well, as I admitted her to the ICU. in brief, elderly female s/p small bowel perforation and ileostomy placement. has been critically ill and ongoing issues are hypoglycemia. Over last few days, has been having high ostomy output and progressive SARA, hypotension. on my exam today, poor skin turgor and clinically appears very dehydrated. actively receiving NS bolus. patient denies complaints. of note, she is an "Alt code: intubation only/no cpr". ROS otherwise negative, no chest pain, sob, abd pain, n /v. 01/08: Copious ileostomy output continues. C. difficile PCR negative yesterday. Have converted enteral feedings to elemental product, vital 1.5, and attempted to pharmacologically slow down bowel transfer time. Prerenal azotemia persists but she is getting aggressively hydrated and electrolytes being actively corrected presently. 01/09: Still a large amount of output from the ileostomy. We have reduce the elemental feeds to trickle feed. Azotemia improved with hydration. We will probably have to start parenteral nutrition through the new internal jugular line now. C. difficile toxin and PCR both negative. 01/10: Continued difficulties with hypoglycemia. I can only surmise that this difficulty represents impaired hepatic function consistent with her terminal process. Her nutritional status is chronically deficient most likely related to inadequate intake over many months or years. 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 I wholeheartedly support the path of hospice for this patient and appreciate the help of the palliative care service. Objective Vital Signs / I&O: Vital Signs 01/09/18 10:00 01/09/18 12:00 01/09/18 14:00 Temperature 98.3 F Pulse Rate 90 89 88 Respiratory Rate 14 Blood Pressure 119/62 Pulse Oximetry 95 01/09/18 16:00 01/09/18 18:00 01/09/18 20:00 Temperature 98.4 F 98.1 F Pulse Rate 92 H 100 H 98 H Respiratory Rate 18 22 Blood Pressure 136/63 155/87 H Pulse Oximetry 95 95 01/09/18 20:32 01/09/18 22:00 01/10/18 00:00 Temperature 97.9 F Pulse Rate 90 92 H Respiratory Rate 22 Blood Pressure 146/67 H Pulse Oximetry 95 97 01/10/18 02:00 01/10/18 04:00 01/10/18 06:00 Temperature 98.5 F Pulse Rate 88 86 94 H Respiratory Rate 22 Blood Pressure 162/72 H Pulse Oximetry 100 Intake & Output 01/09/18 01/10/18 01/10/18 18:59 06:59 18:59 Intake Total 3550 / 3550 1877 / 1877 Output Total 1935 / 1935 2250 / 2250 Balance 1615 / 1615 -373 / -373 Weight 63.7 kg Intake: IV 3550 / 3550 1650 / 1650 D5W/NS + KCL 20 mEq Inj 1,000 1000 / 1000 ML @ As Directed IV.CONT .Q0M JUANITA Rx#:[id number] D5W/NS + KCL 40 mEq Inj 1,000 2000 / 2000 1000 / 1000 ML @ 125 mls/hr IV.CONT .Q8H JUANITA Rx#:[id number] D10W Inj 500 ML @ 50 mls/hr IV. 500 / 500 500 / 500 SIG .Q10H JUANITA Rx#:[id number] Zosyn 3.375 GM Premix 50 ML @ 50 / 50 150 / 150 100 mls/hr IV.SIG Q6H JUANITA Rx#: [id number] Tube Feeding 227 / 227 Output: Urine Amount (Catheter) 550 / 550 600 / 600 Indwelling Urethral Catheter 550 / 550 600 / 600 Stool Amount (Stoma) 1385 / 1385 1650 / 1650 Right Lower Abdomen 1385 / 1385 1650 / 1650 Other: Mode Setting Midline Abdomen Continuous Result Diagrams: 01/10/18 05:30 01/10/18 05:30 Objective Remarks: GENERAL: Weak, elderly female, on nasal cannula. No distress but remains frail and debilitated. SKIN: Well-perfused, but fragile skin, poor skin turgor persists. HEENT: Nasal cannula. Airway patent, no obstructive noises. CARDIOVASCULAR: NSR regular rhythm. no edema. RESPIRATORY: Equal chest rise. unlabored. Mchugh are clear. GASTROINTESTINAL: Abdomen closed, midline incision dressing intact. Ostomy with liquid output, brown in color. G-tube in place, tolerating trickle rate elemental feeds. MUSCULOSKELETAL: No obvious deformities. No clubbing or cyanosis. Limbs well perfused. NEUROLOGICAL: Lying in bed. Very weak, protecting airway. Able to state a few words. Follows commands 4 limbs. Procedures: Laparotomy and bowel resection 12/24 Laparotomy and ileostomy formation 12/26 Intubation and mechanical ventilation Assessment and Plan - Problem List (1) Respiratory failure requiring intubation Code(s): J96.90 - Respiratory failure, unspecified, unspecified whether with hypoxia or hypercapnia Status: Acute (2) Septic shock Code(s): A41.9 - Sepsis, unspecified organism; R65.21 - Severe sepsis with septic shock Status: Acute (3) Hypoglycemia Code(s): E16.2 - Hypoglycemia, unspecified Status: Acute (4) Non-STEMI (non-ST elevated myocardial infarction) Code(s): I21.4 - Non-ST elevation (NSTEMI) myocardial infarction Status: Acute (5) Free intraperitoneal air Code(s): K66.8 - Other specified disorders of peritoneum Status: Resolved (6) Acute abdomen Code(s): R10.0 - Acute abdomen Status: Acute (7) Elevated lactic acid level Code(s): R79.89 - Other specified abnormal findings of blood chemistry Status : Acute (8) Ischemic bowel syndrome Code(s): K55.9 - Vascular disorder of intestine, unspecified Status: Acute - Assessment and Plan Plan: Assessment: 87yF with perforated small bowel now s/p emergent exploratory laparotomy, small bowel resection. Now complicated by acute dehydration, acute kidney injury, high ostomy output. Discussed with saloni Wolff: will send c. diff to rule out ileitis. replace ostomy output 1/2:1 with D5-NS+20kcl, change tube feeds to a higher calorie/carb from glucerna to vital. Vital 1.5 reduced to 10cc/h due to voluminous ileostomy output. Plan by systems: Neurologic: Acute metabolic encephalopathy Minimize sedation minimize sedation Use as needed Tylenol and morphine for pain Respiratory: Acute hypoxic and hypercarbic respiratory failure-improving Bilateral pleural effusion Extubated yesterday 01/01/2018 tolerating well Head of bed elevated, Nebs Wean FiO2 for goal SPO2 greater than 90% Diuresis as below Cardiovascular: Septic shock resolved hypotensive: dehydration Paroxysmal A. fib with RVR-resolved Cannot anticoagulate for A. fib due to recent surgery, discontinued amiodarone IV digoxin 0.25 mg 1 given 12/29/2017 Keep magnesium more than 2.2, keep potassium more than 4 Tenormin restarted yesterday, restart losartan and discontinue triamterene/ hydrochlorothiazide today IV labetalol 20 mg every 2 hours as needed for SBP more than 160 d10w @ 50 for hypoglycemia replace ostomy output 1/2:1, hold diuretics Renal: Acute kidney injury-worsening again secondary to dehydration ivf as above. - Strict I/Os FEN/GI: Small bowel perforation Intra-abdominal sepsis Severe acute protein calorie malnutrition Hypocalcemia Hypomagnesemia High ostomy output s/p abdominal closure 9/18/18. Ileostomy pink, new G-tube in place. change tube feeds to vital 1.5 @ 60 for a more elemental formula replace ostomy output 1/2:1 Imodium send c. diff sample ICU electrolyte protocol Dr. Aldrich following Heme/ID: Anemia secondary to acute blood loss Septic shock-resolved Intra-abdominal sepsis-resolved Daily CBC Follow-up cultures-negative to date C. difficile PCR and toxin negative Endocrine: Hypoglycemia: persistent Hypomagnesemia Hypokalemia -cortisol level 11 - continue d10w and d5 replacements - change tube feeds to vital - check AM LFTs, coags to eval for liver function - serial accuchecks - d50w as needed. -Aggressive electrolyte replacement including magnesium and phosphate Prophylaxis: GI Prophylaxis PPI IV DVT Prophylaxis -SCDs Subcu heparin-hold immediate post op period due to anemia. Star today 01/02 with Lovenox 40 mg subcu daily Overall impression: This woman is critically ill with profound electrolyte and fluid losses. We continue to have a tough time keeping up with her nutritional demands at this point and will need to try to slow down her bowel transit time. She remains critically ill and we are having to stop some of her normal blood pressure control medications. Despite baptism of electrolytes and circulating intravascular volume she continues to deteriorate clinically. Critical care time 38 minutes aside from invasive procedures.
[2018-01-10] MEDS: Loperamide Liq 2 MG/10 ML UDC G-TUBE SCH ×3 (12:18→21:41)
[2018-01-10] MEDS: KCL 20 mEq/D5W/NaCl 0.9% Inj 1,000 ML IV.CONT SCH (14:00)
[2018-01-10] MEDS: Morphine Inj 4 MG/ML Vial IV.PUSH PRN (22:24)
[2018-01-11] MEDS: Piperacil/Tazo 3.375 GM Premix 50 ML IV.SIG SCH ×4 (00:02→17:50)
[2018-01-11] MEDS: Oral Hygiene Kit OROPHARYNG SCH ×4 (00:02→17:15)
[2018-01-11] MEDS: KCL 40 mEq/D5W/NaCl 0.9% Inj 1,000 ML IV.CONT SCH ×2 (00:19→12:48)
[2018-01-11] MEDS: Morphine Inj 4 MG/ML Vial IV.PUSH PRN ×2 (00:33→04:26)
[2018-01-11] MEDS: Labetalol HCl Inj 100 MG/20 ML Vial IV.PUSH PRN (00:37)
[2018-01-11] MEDS: Dextrose 10% in Water Inj 500 ML IV.SIG SCH ×4 (07:36→22:15)
--- NOTE | 2018-01-11 08:15 | P.PNCC ---
Subjective Subjective Remarks/Hospital Course: 87yF originally admitted for abdominal pain and now found to have perforated hollow viscus with intra-abdominal free air. taken to OR emergently by Dr. Aldrich for exploratory laparotomy where they found small bowel perforation. small bowel was resected and due to significantly poor patient tissue and gross contamination of the field, patient was left in discontinuity with an open abdomen. arrives to the ICU intubated, critically ill, on vasopressors, in shock. sedated. no additional information is available from the patient; ROS unobtainable. 12/25: She remains oliguric and septic. We are unable to separate her from mechanical ventilation and are still correcting her metabolic acidosis. Pre- albumin of 5 implicates poor preoperative nutrition. Description of bowel from surgery lens support for a severely debilitated state prior to surgery. She is presently hemodynamically unstable and oliguric. 12/26: Magnesium, phosphate, potassium all low; presently being replaced. Persistent septic pattern. Scheduled for second look operation later today, anticipate discouraging findings. Acid-base balance acceptable in gas exchange good. Update: Back from OR. Well perfused. Clear lungs. Base -6. Urine acceptable. 12/27: Back from surgery yesterday with end ileostomy fashioned. Abdomen remains open with VAC dressing in place. Acid-base balance modestly improved and acceptable. Urine output acceptable and renal function remains close to normal. She remains hemodynamically unstable and rate wiring levo fed at 9 mcg/ min; typical of the smoldering septic picture. 12/28: Renal function remains acceptable. Requiring ongoing vasopressor support with Levophed. Acid-base balance largely corrected. Ileostomy is well perfused and functioning. Plan is to attempt to close the abdomen tomorrow. Blood sugar has twice dropped into the 20s when glucose containing IV solutions have all been stopped. Plan to start tube feeds when OK with surgical service. Please keep glucose containing solution running during operative procedures 12/29: Patient seen after OR. Abdomen closed, new J-tube in place. Ileostomy pink. Still requiring high-dose Levophed currently at 10 mcg/min. No hypoglycemia reported. For OR report is pending. Developed paroxysmal A. fib postop. Replace potassium and magnesium, give metoprolol as needed IV 12/30: Remains intubated sedated. Patient had episode of hypotension overnight. Currently still on vasopressin 0.04 IU. Hemoglobin is 7.1 I have ordered stat 1 unit PRBC. Remains on amiodarone currently sinus rhythm. Opens eyes to stimulation moves extremities purposefully 12/31: Remains on the vent, blood pressure has improved off vasopressin now. Grossly fluid positive approximately 25 KG. Showing generalized anasarca. Give IV Lasix 60 mg 1 and then 40 every 12 hours scheduled. Blood sugar remains low (72 am) despite D5 LR and tube feeds 01/01: Remains intubated currently off propofol only on fentanyl. Wakes up follows commands but remains weak lethargic. Urine output excellent with aggressive diuresis 6.2 L in 24 hours. D/W Dr. Aldrich 01/02: Patient was extubated yesterday tolerating well. Remains off pressors currently hypotensive. Atenolol was restarted yesterday. I will restart losartan and triamterene hydrochlorothiazide today. Son at the bedside updated he wants to continue intubation only. 01/03: Extubated and breathing comfortably. Protects airway well no obstructive noises. Nutritional status remains problematic and we are pushing adjunctive nutrition. 01/04: Excess water coming off nicely over the past 4 days and renal function remains on impaired. She is required 50% dextrose for hypoglycemia again and the etiology of this remains unclear. The suspicion is that her liver is not storing glycogen properly following her resuscitation from the shock state. I will start 10% dextrose this IV until this problem resolves. Will have to follow her caloric intake closely now that she is starting to feed. Moderate contraction alkalosis will require a carbonic anhydrase inhibitor for a day or 2. RECONSULT NOTE: reconsulted today 01/07 for hypotension, hypoglycemia by Dr. Aldrich's team. I know this patient well, as I admitted her to the ICU. in brief, elderly female s/p small bowel perforation and ileostomy placement. has been critically ill and ongoing issues are hypoglycemia. Over last few days, has been having high ostomy output and progressive SARA, hypotension. on my exam today, poor skin turgor and clinically appears very dehydrated. actively receiving NS bolus. patient denies complaints. of note, she is an "Alt code: intubation only/no cpr". ROS otherwise negative, no chest pain, sob, abd pain, n /v. 01/08: Copious ileostomy output continues. C. difficile PCR negative yesterday. Have converted enteral feedings to elemental product, vital 1.5, and attempted to pharmacologically slow down bowel transfer time. Prerenal azotemia persists but she is getting aggressively hydrated and electrolytes being actively corrected presently. 01/09: Still a large amount of output from the ileostomy. We have reduce the elemental feeds to trickle feed. Azotemia improved with hydration. We will probably have to start parenteral nutrition through the new internal jugular line now. C. difficile toxin and PCR both negative. 01/10: Continued difficulties with hypoglycemia. I can only surmise that this difficulty represents impaired hepatic function consistent with her terminal process. Her nutritional status is chronically deficient most likely related to inadequate intake over many months or years. 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 I wholeheartedly support the path of hospice for this patient and appreciate the help of the palliative care service. 01/11: Patient is developed bleeding from the mouth and has developed a left calf hematoma which is quite tense. This is new and may be related to her impaired hepatic function and subsequent prolongation of INR. To palliate this situation we will give some fresh frozen plasma and increase her morphine for both amount and frequency. Vitamin K will be added as well. Objective Vital Signs / I&O: Vital Signs 01/10/18 09:00 01/10/18 10:00 01/10/18 12:00 Temperature 97.9 F Pulse Rate 84 84 Respiratory Rate 20 Blood Pressure 152/70 H Pulse Oximetry 95 93 L 01/10/18 14:00 01/10/18 16:00 01/10/18 17:52 Temperature 99.2 F Pulse Rate 87 91 H Respiratory Rate 20 Blood Pressure 172/82 H Pulse Oximetry 95 95 01/10/18 18:00 01/10/18 19:52 01/10/18 20:00 Temperature 98.2 F Pulse Rate 92 H 89 Respiratory Rate 21 Blood Pressure 142/77 H Pulse Oximetry 98 99 01/10/18 22:00 01/10/18 22:26 01/11/18 00:00 Temperature 98.0 F Pulse Rate 99 H 98 H Respiratory Rate 19 20 Blood Pressure 184/83 H Pulse Oximetry 97 01/11/18 00:35 01/11/18 02:00 01/11/18 04:00 Temperature 98.5 F Pulse Rate 99 H 92 H Respiratory Rate 20 21 Blood Pressure 132/67 Pulse Oximetry 01/11/18 04:28 01/11/18 06:00 Temperature Pulse Rate 90 Respiratory Rate 21 Blood Pressure Pulse Oximetry Intake & Output 01/10/18 01/11/18 01/11/18 18:59 06:59 18:59 Intake Total 2879 / 2879 1667 / 1667 550 / 550 Output Total 2375 / 2375 1100 / 1100 Balance 504 / 504 567 / 567 550 / 550 Weight 29.892 kg Intake: IV 2550 / 2550 1550 / 1550 550 / 550 D5W/NS + KCL 20 mEq Inj 1,000 1000 / 1000 ML @ As Directed IV.CONT .Q0M [facility] Rx#:[id number] D5W/NS + KCL 40 mEq Inj 1,000 1000 / 1000 1000 / 1000 ML @ 75 mls/hr IV.CONT .[id number] [facility] Rx#:[id number] D10W Inj 500 ML @ 50 mls/hr IV. 500 / 500 500 / 500 500 / 500 SIG .Q10H [facility] Rx#:[id number] Zosyn 3.375 GM Premix 50 ML @ 50 / 50 50 / 50 50 / 50 100 mls/hr IV.SIG Q6H [facility] Rx#: [id number] Tube Feeding 119 / 119 117 / 117 Water Bolus Amount 210 / 210 Output: Urine Amount (Catheter) 700 / 700 475 / 475 Indwelling Urethral Catheter 700 / 700 475 / 475 Stool Amount (Stoma) 1675 / 1675 625 / 625 Right Lower Abdomen 1675 / 1675 625 / 625 Gastric Drainage 0 / 0 Left Upper Quadrant Gastrostomy 0 / 0 Tube (PEG) Result Diagrams: 01/10/18 05:30 01/10/18 05:30 Objective Remarks: GENERAL: Weak, elderly female, on nasal cannula. No distress but remains frail and debilitated. SKIN: Well-perfused, but fragile skin, poor skin turgor persists. HEENT: Nasal cannula. Airway patent, no obstructive noises. CARDIOVASCULAR: NSR regular rhythm. no edema. RESPIRATORY: Equal chest rise. unlabored. Mchugh are clear. GASTROINTESTINAL: Abdomen closed, midline incision dressing intact. Ostomy with liquid output, brown in color. G-tube in place, tolerating trickle rate elemental feeds. MUSCULOSKELETAL: Tense swelling of the mid calf left leg. No clubbing or cyanosis. Limbs well perfused. NEUROLOGICAL: Lying in bed. Very weak, protecting airway. Able to state a few words. Follows commands 4 limbs. Procedures: Laparotomy and bowel resection 12/24 Laparotomy and ileostomy formation 12/26 Intubation and mechanical ventilation Assessment and Plan - Problem List (1) Respiratory failure requiring intubation Code(s): J96.90 - Respiratory failure, unspecified, unspecified whether with hypoxia or hypercapnia Status: Acute (2) Septic shock Code(s): A41.9 - Sepsis, unspecified organism; R65.21 - Severe sepsis with septic shock Status: Acute (3) Hypoglycemia Code(s): E16.2 - Hypoglycemia, unspecified Status: Acute (4) Non-STEMI (non-ST elevated myocardial infarction) Code(s): I21.4 - Non-ST elevation (NSTEMI) myocardial infarction Status: Acute (5) Free intraperitoneal air Code(s): K66.8 - Other specified disorders of peritoneum Status: Resolved (6) Acute abdomen Code(s): R10.0 - Acute abdomen Status: Acute (7) Elevated lactic acid level Code(s): R79.89 - Other specified abnormal findings of blood chemistry Status : Acute (8) Ischemic bowel syndrome Code(s): K55.9 - Vascular disorder of intestine, unspecified Status: Acute - Assessment and Plan Plan: Assessment: 87yF with perforated small bowel now s/p emergent exploratory laparotomy, small bowel resection. Now complicated by acute dehydration, acute kidney injury, high ostomy output. Discussed with saloni Wolff: will send c. diff to rule out ileitis. replace ostomy output 1/2:1 with D5-NS+20kcl, change tube feeds to a higher calorie/carb from glucerna to vital. Vital 1.5 reduced to 10cc/h due to voluminous ileostomy output. She is now developed some bleeding around the mouth and 8/10 left calf hematoma. Plan by systems: Neurologic: Acute metabolic encephalopathy Minimize sedation minimize sedation Use as needed Tylenol and morphine for pain Appears to be conversant and quite well oriented now. Respiratory: Acute hypoxic and hypercarbic respiratory failure-improving Bilateral pleural effusion Extubated yesterday 01/01/2018 tolerating well Head of bed elevated, Nebs Wean FiO2 for goal SPO2 greater than 90% Diuresis as below Breathing comfortably now. Cardiovascular: Septic shock resolved hypotensive: dehydration Paroxysmal A. fib with RVR-resolved Cannot anticoagulate for A. fib due to recent surgery, discontinued amiodarone IV digoxin 0.25 mg 1 given 12/29/2017 Keep magnesium more than 2.2, keep potassium more than 4 Tenormin restarted yesterday, restart losartan and discontinue triamterene/ hydrochlorothiazide today IV labetalol 20 mg every 2 hours as needed for SBP more than 160 d10w @ 50 for hypoglycemia replace ostomy output 1/2:1, hold diuretics Renal: Acute kidney injury-worsening again secondary to dehydration ivf as above. - Strict I/Os FEN/GI: Small bowel perforation Intra-abdominal sepsis Severe acute protein calorie malnutrition Hypocalcemia Hypomagnesemia High ostomy output s/p abdominal closure 12/30/17. Ileostomy pink, new G-tube in place. change tube feeds to vital 1.5 @ 60 for a more elemental formula replace ostomy output 1/2:1 Imodium send c. diff sample ICU electrolyte protocol Dr. Aldrich following Heme/ID: Anemia secondary to acute blood loss Septic shock-resolved Intra-abdominal sepsis-resolved Daily CBC Follow-up cultures-negative to date C. difficile PCR and toxin negative Active bleeding, will stop Lovenox and correct INR. Fresh frozen plasma and vitamin K today. Endocrine: Hypoglycemia: persistent Hypomagnesemia Hypokalemia -cortisol level 11 - continue d10w and d5 replacements - change tube feeds to vital - check AM LFTs, coags to eval for liver function - serial accuchecks - d50w as needed. Prophylaxis: GI Prophylaxis PPI IV DVT Prophylaxis -SCDs Subcu heparin-hold immediate post op period due to anemia. Discontinue Lovenox 40 mg subcu daily Overall impression: This woman is critically ill with profound electrolyte and fluid losses. We continue to have a tough time keeping up with her nutritional demands at this point and will need to try to slow down her bowel transit time. She remains critically ill and we are having to stop some of her normal blood pressure control medications. Despite buddhist of electrolytes and circulating intravascular volume she continues to deteriorate clinically. She is now developed bleeding around the mouth and tense distention of the left calf which is undoubtedly a hematoma.
[2018-01-11] MEDS ORDERED: Phytonadione Inj 10 MG in Sodium Chlor 0.9% Inj 50 ML IV.SIG ONE (09:00)
--- NOTE | 2018-01-11 09:17 | US ---
EXAM DATE: 01/11/2018 12:00 AM EDT AGE/SEX: 87 years / Female INDICATIONS: Hematoma; thrombosis. Large mass posterior distal calf. CLINICAL DATA: This is the patient's initial encounter. Patient reports that signs and symptoms have been present for 1 day and indicates a pain score of 8/10. MEDICAL/SURGICAL HISTORY: . GERD. HTN. Hypercholesterol. . Hip replacement. [place] [facility] [place]. . FINDINGS: Grayscale and Doppler ultrasound imaging was performed in the area of the reported mass in the biblical languages professor ior distal left calf. At this location there is a heterogeneous complex mixed echogenicity collection measuring 13.8 x 8.8 x 3.7 cm. It is immediately beneath the skin superficially. Portions are cystic with septations and portions have increased echogenicity without any blood flow confirmed in the ech ogenic portions. CONCLUSION: Complex mostly cystic appearing mass in the left posterior distal calf region. The abnormality measur es up to 13.8 cm and has nonspecific imaging features. It could represent a subacute to chronic hemat satnam in the appropriate clinical setting. The appearance is not typical for a mass but follow-up is re commended to confirm resolution of the abnormality. Electronically signed by: Jhonatan Infante MD 01/11/2018 9:16 AM EDT
--- NOTE | 2018-01-11 09:22 | US ---
EXAM DATE: 01/11/2018 12:00 AM EDT AGE/SEX: 87 years / Female INDICATIONS: Thrombosis; hematoma. CLINICAL DATA: This is the patient's initial encounter. Patient reports that signs and symptoms have been present for 1 day and indicates a pain score of 8/10. MEDICAL/SURGICAL HISTORY: . HTN. GERD. Hypercholesterol. . Hip replacement. [place] [facility] [place]. . TECHNIQUE: Venous ultrasound of both lower extremities was performed from the inguinal ligament to t he proximal calf. Real-time, color Doppler and spectral tracing, compression and augmentation techni ques were used. FINDINGS: Normal compression of the deep venous system from the inguinal region to the proximal calf . No echogenic clot is seen. Normal response of the venous system to augmentation and respiration. CONCLUSION: No venous thrombosis is identified within the left lower extremity. Electronically signed by: Jhonatan Infante MD 01/11/2018 9:20 AM EDT
[2018-01-11] MEDS: Loperamide Liq 2 MG/10 ML UDC G-TUBE SCH ×3 (09:36→17:50)
[2018-01-11] MEDS: Potassium Chloride 25 MEQ Effervescent Tablet NG/OG SCH ×3 (09:37→22:14)
[2018-01-11] MEDS: Atenolol 50 MG Tablet PO SCH ×2 (09:37→20:52)
[2018-01-11] MEDS: Chlorhexidine 0.12% Oral Kit 15 ML UDC OROPHARYNG SCH ×2 (10:50→20:53)
[2018-01-11] MEDS: Morphine Sulfate Inj 2 MG/ML Vial IV.PUSH PRN ×4 (11:46→22:00)
--- NOTE | 2018-01-11 12:56 | P.PNGS ---
Subjective Interval history: comfortable in bed, pain controlled overall except in LLE from swelling/hematoma DW son at bedside and updated condition and treatment plan Physical Exam Vital signs: Vital Signs 01/10/18 14:00 01/10/18 16:00 01/10/18 17:52 Temperature 99.2 F Pulse Rate 87 91 H Respiratory Rate 20 Blood Pressure 172/82 H Pulse Oximetry 95 95 01/10/18 18:00 01/10/18 19:52 01/10/18 20:00 Temperature 98.2 F Pulse Rate 92 H 89 Respiratory Rate 21 Blood Pressure 142/77 H Pulse Oximetry 98 99 01/10/18 22:00 01/10/18 22:26 01/11/18 00:00 Temperature 98.0 F Pulse Rate 99 H 98 H Respiratory Rate 19 20 Blood Pressure 184/83 H Pulse Oximetry 97 01/11/18 00:35 01/11/18 02:00 01/11/18 04:00 Temperature 98.5 F Pulse Rate 99 H 92 H Respiratory Rate 20 21 Blood Pressure 132/67 Pulse Oximetry 01/11/18 04:28 01/11/18 06:00 01/11/18 08:00 Temperature 97.9 F Pulse Rate 90 96 H Respiratory Rate 21 21 Blood Pressure 145/67 H Pulse Oximetry 100 01/11/18 08:47 01/11/18 10:00 01/11/18 11:43 Temperature 97.9 F Pulse Rate 92 H 91 H Respiratory Rate 20 Blood Pressure 126/58 L Pulse Oximetry 99 01/11/18 12:00 Temperature 97.7 F Pulse Rate 94 H Respiratory Rate 26 H Blood Pressure 133/62 Pulse Oximetry 100 Intake & Output 01/10/18 01/11/18 01/11/18 18:59 06:59 18:59 Intake Total 2879 / 2879 1667 / 1667 1651 / 1651 Output Total 2375 / 2375 1100 / 1100 Balance 504 / 504 567 / 567 1651 / 1651 Weight 29.892 kg Intake: IV 2550 / 2550 1550 / 1550 1651 / 1651 D5W/NS + KCL 20 mEq Inj 1,000 1000 / 1000 ML @ As Directed IV.CONT .Q0M [facility] Rx#:[id number] D5W/NS + KCL 40 mEq Inj 1,000 1000 / 1000 1000 / 1000 1000 / 1000 ML @ 75 mls/hr IV.CONT .[id number] [facility] Rx#:[id number] D10W Inj 500 ML @ 50 mls/hr IV. 500 / 500 500 / 500 500 / 500 SIG .Q10H [facility] Rx#:[id number] Vitamin K Inj 10 MG In NS Inj 51 / 51 50 ML @ 102 mls/hr IV.SIG ONCE ONE Rx#:[id number] Zosyn 3.375 GM Premix 50 ML @ 50 / 50 50 / 50 100 / 100 100 mls/hr IV.SIG Q6H [facility] Rx#: [id number] Tube Feeding 119 / 119 117 / 117 Water Bolus Amount 210 / 210 Intake (Blood Product) Amt 0 / 0 Plasma Thawed 5 Day Cp2d Unit 0 / 0 [id number] Output: Urine Amount (Catheter) 700 / 700 475 / 475 Indwelling Urethral Catheter 700 / 700 475 / 475 Stool Amount (Stoma) 1675 / 1675 625 / 625 Right Lower Abdomen 1675 / 1675 625 / 625 Gastric Drainage 0 / 0 Left Upper Quadrant Gastrostomy 0 / 0 Tube (PEG) - Routine Abdominal Exam Present: soft, normoactive bowel sounds, wound, ostomy - Urinary Catheter Management Indwelling Urethral Catheter Cath placed during this visit: yes Reason for continuing: Hourly intake/output Insertion date: 12/24/17 Insertion time: 20:15 Results - Labs 01/10/18 05:30 01/10/18 05:30 Laboratory Results - last 24 hr 01/10/18 01/11/18 01/11/18 18:14 05:58 08:23 POC Glucose 93 103 Blood Bank Comment 01/11/18 11:35 POC Glucose 126 H Blood Bank Comment - Imaging Imaging: ITS Impressions Abdomen X-Ray 12/24/17 00:00 CONCLUSION: Dilated small bowel with collapse of the colon most characteristic of small bowel obstructive process. Calcific atherosclerotic vascular disease Abdomen/Pelvis CT 12/24/17 00:00 CONCLUSION: 1. Small to moderate amount of free air of concern for ruptured viscus. 2. Abnormal bowel gas pattern with dilated loops of small bowel and air-fluid levels most characteristic of a small bowel obstruction. 3. Moderate diverticulosis present. These findings were called to Dr. Aldrich at 1839 hours. Chest X-Ray 01/08/18 00:00 CONCLUSION: Central venous catheter in good position. No pneumothorax identified. Lower Extremity Ultrasound 01/11/18 00:00 CONCLUSION: Complex mostly cystic appearing mass in the left posterior distal calf region. The abnormality measures up to 13.8 cm and has nonspecific imaging features. It could represent a subacute to chronic hematoma in the appropriate clinical setting. The appearance is not typical for a mass but follow-up is recommended to confirm resolution of the abnormality. Venous Doppler Study 01/11/18 00:00 CONCLUSION: No venous thrombosis is identified within the left lower extremity. 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 -CCM following---BP now improved -Glucose improved as well -Continue replacing GI losses with IVF -Increased frequency of Imodium -Continue TF at trickle rate -Palliative Care following--Discussed with Mila AGUILA -- she will discuss possible transition to Comfort Care at home vs care center if the family is ready to transition ---Dr. Aldrich had a discussed with family last night -PT as tolerated -Continue ileostomy care and teaching -Discussed with Lilian ROWAN at bedside (3) History of esophageal reflux Code(s): Z87.19 - Personal history of other diseases of the digestive system Status: Chronic - Plan continue supportive care increase TF to 20cc/hr dw son at bedside
[2018-01-11] MEDS: KCL 20 mEq/D5W/NaCl 0.9% Inj 1,000 ML IV.CONT SCH (17:51)
[2018-01-11] MEDS ORDERED: Sodium Chloride 0.9% 2 ML Flush PRN IV.FLUSH (20:57)
[2018-01-11 21:10] LABS: ABG PCO2 29 mmHg (38-42); ABG PO2 113 mmHg (61-120)
[2018-01-11 21:30] LABS: Mean Corpuscular HGB Conc 32.6 % (32.0-36.0); Mean Corpuscular Hemoglobin 30.9 pg (27.0-34.0); Mean Corpuscular Volume 94.8 fL (80.0-100.0); Mean Platelet Volume 8.8 fL (7.0-11.0); Platelet Count 258 th/mm3 (150-450); Red Blood Count 1.33 mil/mm3 (4.00-5.30)
[2018-01-11 21:33] LABS: Hematocrit 12.6 % (35.0-46.0); Hemoglobin 4.1 gm/dL (11.6-15.3)
[2018-01-11 21:43] LABS: Activated Partial Thrombo Time 32.9 sec (24.3-30.1); INR 1.3 Ratio; Prothrombin Time 13.3 sec (9.8-11.6)
[2018-01-11 21:54] VITALS: TEMP 97.7
[2018-01-11 21:57] LABS: Albumin 1.6 g/dL (3.4-5.0); Calcium 7.1 mg/dL (8.5-10.1); Carbon Dioxide 19.2 meq/L (21.0-32.0); Potassium 5.3 meq/L (3.5-5.1)
[2018-01-11] MEDS ORDERED: Sodium Chlor 0.9% Inj 250 ML IV.SIG SCH (22:00)
[2018-01-11] MEDS: Sodium Chloride 0.9% 2 ML Flush BID IV.FLUSH SCH (22:12)
[2018-01-11] MEDS ORDERED: Morphine Inj 4 MG/ML Vial IV.PUSH PRN (22:28)
--- NOTE | 2018-01-11 23:20 | P.PNCC ---
Critical Care Event Note Code activated: No Narrative: Called to bedside as patient was noted to have labored breathing, sinus tachycardia, a clot in the ostomy. I arrived to find her with anxious and tachypneic with marked pallor of conjunctiva and mucous membranes. Obtained stat ABG and Hgb was 4.1. This appears to be medical bleeding as she is also having bleeding around her mouth and had spontaneous hematoma into her calf this morning which has become progressively swollen and is now quite tense and painful. Appears to have poor hepatic synthetic function and poor nutrition ( also dealing with hypoglycemia despite advancement of D10 drip). The coagulopathy is resulting in spontaneous bleeding at multiple sites and her prognosis for recovery from this is poor. Updated Dr. Aldrich who would support transition to comfort if family desired. I called Yves and described her medical condition. He called his brother and they both came into the hospital. Yves arrived first and we agreed that it is in Ms. Johnson's best interest to proceed with comfort measures. Her son Don arrived later and agreed with comfort based care. She has received 2 units FFP. We will not transfuse additional blood products as this would simply prolong the dying process and cause suffering. Ms Johnson is complaining she is cold. Multiple warmed blankets applied. She will be given morphine as needed. Her sons and daughter- in- law are at bedside. I have answered their questions and assured them that I am available throughout the night if there are any concerns. Critical care time: less than 30 mins
[2018-01-12] MEDS: Atenolol 50 MG Tablet PO SCH (00:33)
[2018-01-12] MEDS: Oral Hygiene Kit OROPHARYNG SCH ×4 (01:12→17:43)
[2018-01-12] MEDS: Piperacil/Tazo 3.375 GM Premix 50 ML IV.SIG SCH ×3 (01:12→13:01)
[2018-01-12] MEDS: Morphine Inj 4 MG/ML Vial IV.PUSH PRN ×11 (02:43→23:20)
[2018-01-12 08:07] VITALS: O2SAT 93
[2018-01-12 10:13] VITALS: BP 75/41
[2018-01-12] MEDS: Loperamide Liq 2 MG/10 ML UDC G-TUBE SCH ×2 (10:16→13:02)
[2018-01-12] MEDS: Potassium Chloride 25 MEQ Effervescent Tablet NG/OG SCH (10:16)
[2018-01-12] MEDS: Chlorhexidine 0.12% Oral Kit 15 ML UDC OROPHARYNG SCH ×2 (10:16→20:00)
[2018-01-12] MEDS: Sodium Chloride 0.9% 2 ML Flush BID IV.FLUSH SCH ×2 (10:17→21:46)
--- NOTE | 2018-01-12 12:05 | P.PNCC ---
Subjective Subjective Remarks/Hospital Course: 87yF originally admitted for abdominal pain and now found to have perforated hollow viscus with intra-abdominal free air. taken to OR emergently by Dr. Aldrich for exploratory laparotomy where they found small bowel perforation. small bowel was resected and due to significantly poor patient tissue and gross contamination of the field, patient was left in discontinuity with an open abdomen. arrives to the ICU intubated, critically ill, on vasopressors, in shock. sedated. no additional information is available from the patient; ROS unobtainable. 12/25: She remains oliguric and septic. We are unable to separate her from mechanical ventilation and are still correcting her metabolic acidosis. Pre- albumin of 5 implicates poor preoperative nutrition. Description of bowel from surgery lens support for a severely debilitated state prior to surgery. She is presently hemodynamically unstable and oliguric. 12/26: Magnesium, phosphate, potassium all low; presently being replaced. Persistent septic pattern. Scheduled for second look operation later today, anticipate discouraging findings. Acid-base balance acceptable in gas exchange good. Update: Back from OR. Well perfused. Clear lungs. Base -6. Urine acceptable. 12/27: Back from surgery yesterday with end ileostomy fashioned. Abdomen remains open with VAC dressing in place. Acid-base balance modestly improved and acceptable. Urine output acceptable and renal function remains close to normal. She remains hemodynamically unstable and rate wiring levo fed at 9 mcg/ min; typical of the smoldering septic picture. 12/28: Renal function remains acceptable. Requiring ongoing vasopressor support with Levophed. Acid-base balance largely corrected. Ileostomy is well perfused and functioning. Plan is to attempt to close the abdomen tomorrow. Blood sugar has twice dropped into the 20s when glucose containing IV solutions have all been stopped. Plan to start tube feeds when OK with surgical service. Please keep glucose containing solution running during operative procedures 12/29: Patient seen after OR. Abdomen closed, new J-tube in place. Ileostomy pink. Still requiring high-dose Levophed currently at 10 mcg/min. No hypoglycemia reported. For OR report is pending. Developed paroxysmal A. fib postop. Replace potassium and magnesium, give metoprolol as needed IV 12/30: Remains intubated sedated. Patient had episode of hypotension overnight. Currently still on vasopressin 0.04 IU. Hemoglobin is 7.1 I have ordered stat 1 unit PRBC. Remains on amiodarone currently sinus rhythm. Opens eyes to stimulation moves extremities purposefully 12/31: Remains on the vent, blood pressure has improved off vasopressin now. Grossly fluid positive approximately 25 KG. Showing generalized anasarca. Give IV Lasix 60 mg 1 and then 40 every 12 hours scheduled. Blood sugar remains low (72 am) despite D5 LR and tube feeds 01/01: Remains intubated currently off propofol only on fentanyl. Wakes up follows commands but remains weak lethargic. Urine output excellent with aggressive diuresis 6.2 L in 24 hours. D/W Dr. Aldrich 01/02: Patient was extubated yesterday tolerating well. Remains off pressors currently hypotensive. Atenolol was restarted yesterday. I will restart losartan and triamterene hydrochlorothiazide today. Son at the bedside updated he wants to continue intubation only. 01/03: Extubated and breathing comfortably. Protects airway well no obstructive noises. Nutritional status remains problematic and we are pushing adjunctive nutrition. 01/04: Excess water coming off nicely over the past 4 days and renal function remains on impaired. She is required 50% dextrose for hypoglycemia again and the etiology of this remains unclear. The suspicion is that her liver is not storing glycogen properly following her resuscitation from the shock state. I will start 10% dextrose this IV until this problem resolves. Will have to follow her caloric intake closely now that she is starting to feed. Moderate contraction alkalosis will require a carbonic anhydrase inhibitor for a day or 2. RECONSULT NOTE: reconsulted today 01/07 for hypotension, hypoglycemia by Dr. Aldrich's team. I know this patient well, as I admitted her to the ICU. in brief, elderly female s/p small bowel perforation and ileostomy placement. has been critically ill and ongoing issues are hypoglycemia. Over last few days, has been having high ostomy output and progressive SARA, hypotension. on my exam today, poor skin turgor and clinically appears very dehydrated. actively receiving NS bolus. patient denies complaints. of note, she is an "Alt code: intubation only/no cpr". ROS otherwise negative, no chest pain, sob, abd pain, n /v. 01/08: Copious ileostomy output continues. C. difficile PCR negative yesterday. Have converted enteral feedings to elemental product, vital 1.5, and attempted to pharmacologically slow down bowel transfer time. Prerenal azotemia persists but she is getting aggressively hydrated and electrolytes being actively corrected presently. 01/09: Still a large amount of output from the ileostomy. We have reduce the elemental feeds to trickle feed. Azotemia improved with hydration. We will probably have to start parenteral nutrition through the new internal jugular line now. C. difficile toxin and PCR both negative. 01/10: Continued difficulties with hypoglycemia. I can only surmise that this difficulty represents impaired hepatic function consistent with her terminal process. Her nutritional status is chronically deficient most likely related to inadequate intake over many months or years. 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 I wholeheartedly support the path of hospice for this patient and appreciate the help of the palliative care service. 01/11: Patient is developed bleeding from the mouth and has developed a left calf hematoma which is quite tense. This is new and may be related to her impaired hepatic function and subsequent prolongation of INR. To palliate this situation we will give some fresh frozen plasma and increase her morphine for both amount and frequency. Vitamin K will be added as well. 01/12: Continued deterioration in clinical status. Family has elected for in- house hospice and arrangements have been made for comfort measures. We will transfer the patient to the floor now. With the increased morphine dosage she appears to be much more comfortable. Objective Vital Signs / I&O: Vital Signs 01/11/18 13:53 01/11/18 14:00 01/11/18 16:00 Temperature 97.7 F 98.3 F Pulse Rate 99 H 97 H 100 H Respiratory Rate 29 H 25 H Blood Pressure 133/71 140/66 Pulse Oximetry 100 01/11/18 18:00 01/11/18 20:00 01/11/18 20:04 Temperature 97.7 F Pulse Rate 103 H 108 H Respiratory Rate 30 H Blood Pressure 119/68 Pulse Oximetry 100 100 01/11/18 21:49 01/11/18 22:00 01/12/18 00:00 Temperature 97.7 F Pulse Rate 110 H 112 H 110 H Respiratory Rate 32 H Blood Pressure 95/54 L Pulse Oximetry 94 L 10/01/18 02:00 01/12/18 05:00 01/12/18 08:00 Temperature Pulse Rate 115 H 116 H 107 H Respiratory Rate 32 H 13 Blood Pressure 82/47 L 75/41 L Pulse Oximetry 01/12/18 08:06 01/12/18 10:00 01/12/18 11:13 Temperature Pulse Rate 106 H 106 H Respiratory Rate Blood Pressure Pulse Oximetry 93 L Intake & Output 01/11/18 01/12/18 01/12/18 18:59 06:59 18:59 Intake Total 3985 / 3985 1156 / 1156 Output Total 1450 / 1450 525 / 525 Balance 2535 / 2535 631 / 631 Intake: IV 3701 / 3701 1100 / 1100 D5W/NS + KCL 20 mEq Inj 1,000 1000 / 1000 50 / 50 ML @ As Directed IV.CONT .Q0M [facility] Rx#:[id number] D5W/NS + KCL 40 mEq Inj 1,000 1000 / 1000 800 / 800 ML @ 75 mls/hr IV.CONT .[id number] [facility] Rx#:[id number] D10W Inj 500 ML @ 70 mls/hr IV. 1500 / 1500 250 / 250 SIG .Q7H9M [facility] Rx#:[id number] Vitamin K Inj 10 MG In NS Inj 51 / 51 50 ML @ 102 mls/hr IV.SIG ONCE ONE Rx#:[id number] Zosyn 3.375 GM Premix 50 ML @ 150 / 150 100 mls/hr IV.SIG Q6H [facility] Rx#: [id number] Tube Feeding 184 / 184 56 / 56 Other 100 / 100 Plasma Thawed 5 Day Cp2d Unit 50 / 50 [id number] Plasma Thawed 5 Day Cp2d Unit 50 / 50 [id number] Intake (Blood Product) Amt 0 / 0 0 / 0 Plasma Thawed 5 Day Cp2d Unit 0 / 0 [id number] Plasma Thawed 5 Day Cp2d Unit 0 / 0 [id number] Plasma Thawed 5d Cp2d Pool 0 / 0 Unit [id number] Output: Urine Amount (Catheter) 450 / 450 Indwelling Urethral Catheter 450 / 450 Stool Amount (Stoma) 1000 / 1000 525 / 525 Right Lower Abdomen 1000 / 1000 525 / 525 Result Diagrams: 01/11/18 21:00 01/11/18 21:00 Objective Remarks: GENERAL: Weak, elderly female, on nasal cannula. No distress but remains frail and debilitated. SKIN: Well-perfused, but fragile skin, poor skin turgor persists. HEENT: Nasal cannula. Airway patent, no obstructive noises. CARDIOVASCULAR: NSR regular rhythm. no edema. RESPIRATORY: Equal chest rise. unlabored. Mchugh are clear. GASTROINTESTINAL: Abdomen closed, midline incision dressing intact. Ostomy with liquid output, brown in color. G-tube in place, tolerating trickle rate elemental feeds. MUSCULOSKELETAL: Tense swelling of the mid calf left leg. No clubbing or cyanosis. Limbs well perfused. NEUROLOGICAL: Lying in bed. Very weak, protecting airway. Able to state a few words. Follows commands 4 limbs. Procedures: Laparotomy and bowel resection 12/24 Laparotomy and ileostomy formation 12/26 Intubation and mechanical ventilation Assessment and Plan - Problem List (1) Respiratory failure requiring intubation Code(s): J96.90 - Status: Acute (2) Septic shock Code(s): A41.9 - ; R65.21 - Status: Acute (3) Hypoglycemia Code(s): E16.2 - Status: Acute (4) Non-STEMI (non-ST elevated myocardial infarction) Code(s): I21.4 - Status: Acute (5) Free intraperitoneal air Code(s): K66.8 - Status: Resolved (6) Acute abdomen Code(s): R10.0 - Status: Acute (7) Elevated lactic acid level Code(s): R79.89 - Status: Acute (8) Ischemic bowel syndrome Code(s): K55.9 - Status: Acute - Assessment and Plan Plan: Assessment: 87yF with perforated small bowel now s/p emergent exploratory laparotomy, small bowel resection. Now complicated by acute dehydration, acute kidney injury, high ostomy output. Discussed with saloni Wolff: will send c. diff to rule out ileitis. replace ostomy output 1/2:1 with D5-NS+20kcl, change tube feeds to a higher calorie/carb from glucerna to vital. Vital 1.5 reduced to 10cc/h due to voluminous ileostomy output. She is now developed some bleeding around the mouth and 8/10 left calf hematoma. Family is opted for hospice at this point and that appears to be a du decision. The patient continues clinical deterioration but appears comfortable for now on morphine. Plan by systems: Neurologic: Acute metabolic encephalopathy Minimize sedation minimize sedation Use as needed Tylenol and morphine for pain Appears to be conversant and quite well oriented now. Respiratory: Acute hypoxic and hypercarbic respiratory failure-improving Bilateral pleural effusion Extubated yesterday 01/01/2018 tolerating well Head of bed elevated, Nebs Wean FiO2 for goal SPO2 greater than 90% Diuresis as below Breathing comfortably now. Cardiovascular: Septic shock resolved hypotensive: dehydration Paroxysmal A. fib with RVR-resolved Cannot anticoagulate for A. fib due to recent surgery, discontinued amiodarone IV digoxin 0.25 mg 1 given 12/29/2017 Keep magnesium more than 2.2, keep potassium more than 4 Tenormin restarted yesterday, restart losartan and discontinue triamterene/ hydrochlorothiazide today IV labetalol 20 mg every 2 hours as needed for SBP more than 160 d10w @ 50 for hypoglycemia replace ostomy output 1/2:1, hold diuretics Renal: Acute kidney injury-worsening again secondary to dehydration ivf as above. - Strict I/Os FEN/GI: Small bowel perforation Intra-abdominal sepsis Severe acute protein calorie malnutrition Hypocalcemia Hypomagnesemia High ostomy output s/p abdominal closure 12/30/17. Ileostomy pink, new G-tube in place. change tube feeds to vital 1.5 @ 60 for a more elemental formula replace ostomy output 1/2:1 Imodium send c. diff sample ICU electrolyte protocol Dr. Adlrich following Heme/ID: Anemia secondary to acute blood loss Septic shock-resolved Intra-abdominal sepsis-resolved Daily CBC Follow-up cultures-negative to date C. difficile PCR and toxin negative Active bleeding, will stop Lovenox and correct INR. Fresh frozen plasma and vitamin K today. Endocrine: Hypoglycemia: persistent Hypomagnesemia Hypokalemia -cortisol level 11 - continue d10w and d5 replacements - change tube feeds to vital - check AM LFTs, coags to eval for liver function - serial accuchecks - d50w as needed. Prophylaxis: GI Prophylaxis PPI IV DVT Prophylaxis -SCDs Subcu heparin-hold immediate post op period due to anemia. Discontinue Lovenox 40 mg subcu daily Overall impression: This woman is critically ill with profound electrolyte and fluid losses. We continue to have a tough time keeping up with her nutritional demands at this point and will need to try to slow down her bowel transit time. She remains critically ill and we are having to stop some of her normal blood pressure control medications. Despite amish of electrolytes and circulating intravascular volume she continues to deteriorate clinically. She is now developed bleeding around the mouth and tense distention of the left calf which is undoubtedly a hematoma. Family is opted for hospice care at this point and elects for comfort measures. I agree wholeheartedly with that decision as the woman continues to clinically deteriorate.
[2018-01-12 12:59] VITALS: PULSE 100
[2018-01-12 23:20] VITALS: RESP 12
--- NOTE | 2018-01-13 06:46 | P.DS ---
Date of admission: 12/17/17 07:18 Primary care physician: UNKNOWN Attending physician on discharge: Jovany Pollard Brief History from admission: This is a pleasant 87-year-old elderly black female with past medical history hypertension and hyperlipidemia. Patient was recently admitted from December 12 to December 14 with possible diverticulitis. Patient patient was tolerating diet well and she was discharge on oral antibiotics. According to the son, she was able to ambulate from the car to her home with some assistance. Later in the evening she had another episode of massive diarrhea and patient became very weak. She complains of her abdomen being distended and some tenderness to the left abdomen. There is no reported fever, no chills, no chest pain, shortness of breath. Patient indicates she has had poor appetite and has not been eating much but at this time wants to eat. Her son is at bedside providing most of the history. Patient was evaluated in the emergency room, laboratory workup was completed. CBC remarkable for WBC of 14.2, hemoglobin 8.8 and hematocrit of 27.3. BMP remarkable for sodium of 148, BUN 11, creatinine 0.85, protein corrected calcium of 8.1, magnesium 1.4. She was tachycardic. She was given IV fluids and magnesium was replaced. At this time, she wants something to eat. She has not had any further episodes of diarrhea since last night. Her son endorses that she is usually very active and lives by herself. Patient is admitted for further evaluation and treatment. Patient update on day of discharge: Patient was transitioned to hospice care and of natural causes at 0037 hours on 01/13/2018. Her family was at the bedside. DS: Diagnosis - Discharge Diagnosis (1) Respiratory failure requiring intubation Status: Acute (2) Septic shock Status: Acute (3) Hypoglycemia Status: Acute (4) Non-STEMI (non-ST elevated myocardial infarction) Status: Acute (5) Acute abdomen Status: Acute (6) Elevated lactic acid level Status: Acute (7) Ischemic bowel syndrome Status: Acute DS: Summary Hospital Course: 87yF originally admitted for abdominal pain and now found to have perforated hollow viscus with intra-abdominal free air. taken to OR emergently by Dr. Aldrich for exploratory laparotomy where they found small bowel perforation. small bowel was resected and due to significantly poor patient tissue and gross contamination of the field, patient was left in discontinuity with an open abdomen. arrives to the ICU intubated, critically ill, on vasopressors, in shock. sedated. no additional information is available from the patient; ROS unobtainable. 12/25: She remains oliguric and septic. We are unable to separate her from mechanical ventilation and are still correcting her metabolic acidosis. Pre- albumin of 5 implicates poor preoperative nutrition. Description of bowel from surgery lens support for a severely debilitated state prior to surgery. She is presently hemodynamically unstable and oliguric. 12/26: Magnesium, phosphate, potassium all low; presently being replaced. Persistent septic pattern. Scheduled for second look operation later today, anticipate discouraging findings. Acid-base balance acceptable in gas exchange good. Update: Back from OR. Well perfused. Clear lungs. Base -6. Urine acceptable. 12/27: Back from surgery yesterday with end ileostomy fashioned. Abdomen remains open with VAC dressing in place. Acid-base balance modestly improved and acceptable. Urine output acceptable and renal function remains close to normal. She remains hemodynamically unstable and rate wiring levo fed at 9 mcg/ min; typical of the smoldering septic picture. 12/28: Renal function remains acceptable. Requiring ongoing vasopressor support with Levophed. Acid-base balance largely corrected. Ileostomy is well perfused and functioning. Plan is to attempt to close the abdomen tomorrow. Blood sugar has twice dropped into the 20s when glucose containing IV solutions have all been stopped. Plan to start tube feeds when OK with surgical service. 12/29: Patient seen after OR. Abdomen closed, new J-tube in place. Ileostomy pink. Still requiring high-dose Levophed currently at 10 mcg/min. No hypoglycemia reported. For OR report is pending. Developed paroxysmal A. fib postop. Replace potassium and magnesium, give metoprolol as needed IV 12/30: Remains intubated sedated. Patient had episode of hypotension overnight. Currently still on vasopressin 0.04 IU. Hemoglobin is 7.1 I have ordered stat 1 unit PRBC. Remains on amiodarone currently sinus rhythm. Opens eyes to stimulation moves extremities purposefully 12/31: Remains on the vent, blood pressure has improved off vasopressin now. Grossly fluid positive approximately 25 KG. Showing generalized anasarca. Give IV Lasix 60 mg 1 and then 40 every 12 hours scheduled. Blood sugar remains low (72 am) despite D5 LR and tube feeds 01/01: Remains intubated currently off propofol only on fentanyl. Wakes up follows commands but remains weak lethargic. Urine output excellent with aggressive diuresis 6.2 L in 24 hours. D/W Dr. Aldrich 01/02: Patient was extubated yesterday tolerating well. Remains off pressors currently hypotensive. Atenolol was restarted yesterday. I will restart losartan and triamterene hydrochlorothiazide today. Son at the bedside updated he wants to continue intubation only. 01/03: Extubated and breathing comfortably. Protects airway well no obstructive noises. Nutritional status remains problematic and we are pushing adjunctive nutrition. 01/04: Excess water coming off nicely over the past 4 days and renal function remains on impaired. She is required 50% dextrose for hypoglycemia again and the etiology of this remains unclear. The suspicion is that her liver is not storing glycogen properly following her resuscitation from the shock state. I will start 10% dextrose this IV until this problem resolves. Will have to follow her caloric intake closely now that she is starting to feed. Moderate contraction alkalosis will require a carbonic anhydrase inhibitor for a day or 2. RECONSULT NOTE: reconsulted today 01/07 for hypotension, hypoglycemia by Dr. Aldrich's team. I know this patient well, as I admitted her to the ICU. in brief, elderly female s/p small bowel perforation and ileostomy placement. has been critically ill and ongoing issues are hypoglycemia. Over last few days, has been having high ostomy output and progressive SARA, hypotension. on my exam today, poor skin turgor and clinically appears very dehydrated. actively receiving NS bolus. patient denies complaints. of note, she is an "Alt code: intubation only/no cpr". ROS otherwise negative, no chest pain, sob, abd pain, n /v. 01/08: Copious ileostomy output continues. C. difficile PCR negative yesterday. Have converted enteral feedings to elemental product, vital 1.5, and attempted to pharmacologically slow down bowel transfer time. Prerenal azotemia persists but she is getting aggressively hydrated and electrolytes being actively corrected presently. 01/09: Still a large amount of output from the ileostomy. We have reduce the elemental feeds to trickle feed. Azotemia improved with hydration. We will probably have to start parenteral nutrition through the new internal jugular line now. C. difficile toxin and PCR both negative. 01/10: Continued difficulties with hypoglycemia. I can only surmise that this difficulty represents impaired hepatic function consistent with her terminal process. Her nutritional status is chronically deficient most likely related to inadequate intake over many months or years. 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 I wholeheartedly support the path of hospice for this patient and appreciate the help of the palliative care service. 01/11: Patient is developed bleeding from the mouth and has developed a left calf hematoma which is quite tense. This is new and may be related to her impaired hepatic function and subsequent prolongation of INR. To palliate this situation we will give some fresh frozen plasma and increase her morphine for both amount and frequency. Vitamin K will be added as well. 01/12: Continued deterioration in clinical status. Family has elected for in- house hospice and arrangements have been made for comfort measures. We will transfer the patient to the floor now. With the increased morphine dosage she appears to be much more comfortable. - Time Spent with Patient Total time spent providing and/or coordinating discharge services: Greater than 30 minutes - Quality: VTE Deep Vein Thrombosis/Pulmonary Embolism Present on Admission: No Exam Vital signs: Vital Signs 01/12/18 08:00 01/12/18 08:06 01/12/18 10:00 Pulse Rate 107 H 106 H Respiratory Rate 13 Blood Pressure 75/41 L Pulse Oximetry 93 L 01/12/18 11:13 01/12/18 12:00 01/12/18 20:30 Pulse Rate 106 H 100 H Respiratory Rate 16 13 Blood Pressure Pulse Oximetry 01/12/18 22:10 Pulse Rate Respiratory Rate 12 Blood Pressure Pulse Oximetry Intake & Output 01/12/18 01/12/18 01/13/18 06:59 18:59 06:59 Intake Total 1156 / 1156 Output Total 525 / 525 Balance 631 / 631 Intake: IV 1100 / 1100 D5W/NS + KCL 20 mEq Inj 1,000 50 / 50 ML @ As Directed IV.CONT .Q0M [facility] Rx#:[id number] D5W/NS + KCL 40 mEq Inj 1,000 800 / 800 ML @ 75 mls/hr IV.CONT .[id number] [facility] Rx#:[id number] D10W Inj 500 ML @ 70 mls/hr IV. 250 / 250 SIG .[id number] [facility] Rx#:[id number] Tube Feeding 56 / 56 Intake (Blood Product) Amt 0 / 0 Plasma Thawed 5d Cp2d Pool 0 / 0 Unit [id number] Output: Stool Amount (Stoma) 525 / 525 Right Lower Abdomen 525 / 525 Narrative: Results Procedures completed during hospitalization: 1. Small bowel resection for necrotic ileum 2. Creation of ileostomy and abdomen closure 3. Intubation and mechanical ventilation Completed studies during hospitalization: Pending at discharge 12/24/17 09:09 Surgical [PTH] Routine 12/26/17 09:09 Surgical [PTH] Routine - Impressions ITS Impressions Abdomen X-Ray 12/24/17 00:00 CONCLUSION: Dilated small bowel with collapse of the colon most characteristic of small bowel obstructive process. Calcific atherosclerotic vascular disease Abdomen/Pelvis CT 12/24/17 00:00 CONCLUSION: 1. Small to moderate amount of free air of concern for ruptured viscus. 2. Abnormal bowel gas pattern with dilated loops of small bowel and air-fluid levels most characteristic of a small bowel obstruction. 3. Moderate diverticulosis present. These findings were called to Dr. Aldrich at 1839 hours. Chest X-Ray 01/08/18 00:00 CONCLUSION: Central venous catheter in good position. No pneumothorax identified. Lower Extremity Ultrasound 01/11/18 00:00 CONCLUSION: Complex mostly cystic appearing mass in the left posterior distal calf region. The abnormality measures up to 13.8 cm and has nonspecific imaging features. It could represent a subacute to chronic hematoma in the appropriate clinical setting. The appearance is not typical for a mass but follow-up is recommended to confirm resolution of the abnormality. Venous Doppler Study 01/11/18 00:00 CONCLUSION: No venous thrombosis is identified within the left lower extremity. Discharge Plan - Discharge Disposition Patient Disposition: 20 - Discharge Details Date/Time: 01/13/18 00:28 - Physicians Team Primary Care Provider: UNKNOWN, Attending Provider: Jovany Pollard Other Providers: Daniele Harris MD ; [facility] ; Owen Aldrich MD ; [facility] ; Lemuel Roberts MD ; [facility] ; Jovany Pollard MD
== END 2018-01-13 02:45 | disposition expired ==
LOC: NEDA 01:02 → NEPC 01:02 → NEPHCDU 05:49 → N07 12-18 22:27 → N03 12-24 21:54
PROVIDERS: ADMIT Surgery Surgical Critical Care; ATTEND Surgery Surgical Critical Care
PROC: RSCOLON (2017-12-26 14:03)